=== PATIENT | female | born 1945 | race Caucasian/White ===

== ENCOUNTER → 2022-04-26 13:46 | Outpatient (BNVA) | payer OTHER, SELFPAY | PROVIDERS: PCP Registered Nurse; Visit Provider Nurse Practitioner Family | DX: G47.33 Obstructive sleep apnea (adult) (pediatric) (principal); R40.0 Somnolence; Z99.89 Dependence on other enabling machines and devices | CPT/HCPCS: 99202 ==

== ENCOUNTER → 2022-05-20 13:57 | Outpatient (REF) | payer OTHER, SELFPAY | LOC: HO.SL 13:57 | PROVIDERS: PCP Registered Nurse; Visit Provider Nurse Practitioner Family | DX: G47.33 Obstructive sleep apnea (adult) (pediatric) (principal); R40.0 Somnolence; Z99.89 Dependence on other enabling machines and devices | CPT/HCPCS: 95806 ==

== ENCOUNTER 2022-06-17 14:00 | Outpatient (RCR) | payer OTHER, SELFPAY | END 2022-07-03 17:49 | disposition home or self-care (01) | LOC: HO.PT 14:00 | PROVIDERS: PCP Registered Nurse; Visit Provider Registered Nurse | DX: M54.50 Low back pain, unspecified (principal) | CPT/HCPCS: 97110; 97140; 97162; 97530 ==

== ENCOUNTER → 2022-07-16 11:06 | Outpatient (BNVA) | payer OTHER, SELFPAY | PROVIDERS: PCP Registered Nurse; Visit Provider Nurse Practitioner Family | DX: G47.33 Obstructive sleep apnea (adult) (pediatric) (principal); Z99.89 Dependence on other enabling machines and devices | CPT/HCPCS: 99212 ==

== ENCOUNTER → 2022-08-26 15:01 | Outpatient (BNV) | payer OTHER, SELFPAY | PROVIDERS: Visit Provider Internal Medicine | DX: E53.8 Deficiency of other specified B group vitamins (principal); Z85.3 Personal history of malignant neoplasm of breast | CPT/HCPCS: 99204; 99213; 99214; G2211 ==

== ENCOUNTER 2022-08-26 15:59 | Outpatient (REF) | payer OTHER, SELFPAY ==
--- NOTE | ~2022-08-26 | XR_ITS ---
EXAMINATION: XR CERVICAL SPINE CLINICAL INFORMATION: Left shoulder pain. COMPARISON: None TECHNIQUE: 3 views of the cervical spine were obtained. FINDINGS: There are no prevertebral soft tissue or bony abnormalities demonstrated. No compression fractures or subluxations are identified. Alignment is maintained at the atlanto-axial articulation. The disc spaces are preserved. No endplate changes are seen. The prevertebral soft tissues are normal. The foramina are patent. XR/XR cervical spine 3V IMPRESSION: Unremarkable cervical spine examination.
--- NOTE | ~2022-08-26 | XR_ITS ---
EXAMINATION: XR HAND, RIGHT CLINICAL INFORMATION: Chronic finger pain COMPARISON: None TECHNIQUE: PA, lateral, and oblique views of the right hand. FINDINGS: No fracture or dislocation. Alignment is maintained. Joint spaces are maintained. Small soft tissue calcifications adjacent to the metacarpophalangeal joints. No osseous erosions. Small marginal osteophytes at the second and third digit proximal interphalangeal joints. XR/XR hand RT 2V IMPRESSION: Minimal arthritic changes. Small soft tissue calcifications adjacent to the metacarpophalangeal joints.
== END 2022-08-26 16:00 | disposition home or self-care (01) ==
LOC: HO.XRAY 15:59
PROVIDERS: PCP Registered Nurse; Visit Provider Registered Nurse
DX: M79.644 Pain in right finger(s) (principal); M25.512 Pain in left shoulder
CPT/HCPCS: 72040; 73120

== ENCOUNTER → 2022-08-28 10:43 | Outpatient (BNVA) | payer OTHER, SELFPAY | PROVIDERS: Visit Provider Orthopaedic Surgery | DX: M65.331 Trigger finger, right middle finger (principal); R20.0 Anesthesia of skin | CPT/HCPCS: 20550; 99202; J1100 ==

== ENCOUNTER 2022-10-04 13:28 | Outpatient (REF) | payer OTHER, SELFPAY ==
--- NOTE | ~2022-10-04 | MM_ITS ---
EXAMINATION: MM SCREENING DIGITAL BREAST TOMOSYNTHESIS, LEFT CLINICAL INFORMATION: Screening. Asymptomatic. Status post right mastectomy. Status post left breast biopsy. COMPARISON: Mammography: None. TECHNIQUE: Digital breast tomosynthesis is performed in both the craniocaudal and mediolateral oblique views along with computer-aided detection (CAD). Synthesized 2-D images are generated from the tomosynthesis. FINDINGS: There are scattered areas of fibroglandular density (ACR BI-RADS breast composition Category b). There is a region of architectural distortion about the upper outer aspect of the left breast in region of previous surgery. Vascular calcifications are present. No other suspicious findings are identified. MM/MM tomosynthesis screening LT IMPRESSION: Status post right mastectomy. Postsurgical change left breast. ASSESSMENT: BI-RADS 2: Benign RECOMMENDATION: Routine annual mammography screening. This patient's information was entered into a reminder system with a target due date for their next mammogram.
== END 2022-10-04 13:29 | disposition home or self-care (01) ==
LOC: HO.MAMMO 13:28
PROVIDERS: PCP Registered Nurse; Visit Provider Internal Medicine
DX: Z12.31 Encounter for screening mammogram for malignant neoplasm of breast (principal)
CPT/HCPCS: 77063; 77067

== ENCOUNTER → 2022-10-08 13:55 | Outpatient (BNVA) | payer OTHER, SELFPAY | PROVIDERS: PCP Registered Nurse; Visit Provider Nurse Practitioner Family | DX: M65.331 Trigger finger, right middle finger (principal); R20.0 Anesthesia of skin; G47.33 Obstructive sleep apnea (adult) (pediatric); G47.00 Insomnia, unspecified; Z99.89 Dependence on other enabling machines and devices | CPT/HCPCS: 99212 ==

== ENCOUNTER 2022-10-17 12:36 | Day surgery (SDC) | payer OTHER, SELFPAY ==
[2022-10-17 13:02] VITALS: BP 106/44; PULSE 84; RESP 16; TEMP 36.3; O2SAT 97; BMI 34.0
[2022-10-17 14:13] VITALS: BP 106/55; PULSE 75; RESP 18; O2SAT 97
--- NOTE | 2022-10-17 14:15 | MHC.SHP ---
Pre-Procedural Eval Section A Date of Service: 10/17/22 The patient is an INPATIENT: No Changes since office visit: No Cold of Flu in the past 2 weeks, No New Medical Problems, No Changes in Medication and No Patient answered all questions The History & Physical has been completed within 30 days and I have reviewed it.: Yes Section B Chief Complaint: Trigger finger, right middle finger,carpal tunnel Allergies: Allergies Allergy/AdvReac Type Severity Reaction Status Date / Time Penicillins Allergy Intermediate Rash Verified 10/17/22 13:03 Plan I have reviewed the history and physical and performed a pertinent physical examination on my patient. No changes have occurred unless specified. Time Spent With Patient Time: Total time managing care of this patient today ____ minutes.
--- NOTE | 2022-10-17 14:16 | W.PM.OPN ---
Operative Note Operative Note Date of Service: 10/17/22 Narrative: Preop diagnosis: 1. Right Carpal tunnel syndrome 2. Right middle finger trigger finger Postop diagnosis: same Procedure: 1. Right Carpal tunnel release 2. Right middle finger trigger release Surgeon: Carlita Stack MD Anesthesia: local block using 1% lidocaine with epinephrine Findings: Thickened transverse carpal ligament. EBL: Less than 5 mL Specimens: None Complications: None Disposition: Brought to recovery room in stable condition Plan: Follow-up for 10-14 days for wound check and suture removal Indications: The patient is 77 years old, with right carpal tunnel syndrome and a right middle finger trigger finger that have been unresponsive to nonoperative management. The risks and benefits of operative treatment including but not limited to risk of damage to blood vessels, nerves, tendons, infection, persistent pain, persistent symptoms, or possible need for additional surgery were discussed with the patient and the patient wishes to proceed with surgery. Procedure: Once consent was obtained a local block was performed using a combination of 1% lidocaine with epinephrine. The patient was then brought back to the operating suite and placed on the operative table in supine position. The right upper extremity was prepped and draped in a standard surgical fashion. Once assured that we had a good block, a 1.5 cm oblique incision was made centered over the A1 zenaida of the right middle finger . The incision was made through the skin to the subcutaneous tissues using a #15 blade. Careful dissection was made down to the level of the A1 zenaida using tenotomy scissors, with care being taken to protect the nearby neurovascular structures. A longitudinal incision was made in the A1 zenaida 1st using a #15 blade, then using tenotomy scissors under direct visualization. The A1 zenaida was noted to be thickened. Following our A1 zenaida release, we no longer saw any locking or catching of the digit with flexion and extension. Once assured that we had a good block, a 2.0 cm longitudinal incision was made centered over the carpal tunnel. The incision was made through the skin to the subcutaneous tissues using a #15 blade. Dissection was made down to the level of the transverse carpal ligament with care being taken to protect the palmar cutaneous nerve. Once the transverse carpal ligament was clearly visualized, a longitudinal incision was made in the transverse carpal ligament 1st using a #15 blade, then using tenotomy scissors under direct visualization. Care was taken to look for and protect the motor branch of the median nerve when seen in this area. Once satisfied with our carpal tunnel release and trigger release the wounds were copiously irrigated with normal saline and hemostasis was obtained with a brief period of local pressure. The skin edges were reapproximated with some 5.0 nylon suture material and a sterile dressing was applied. The patient appears to have tolerated the procedure well and with no complications. All digits were well vascularized at the conclusion of the case.
== END 2022-10-17 14:47 | disposition home or self-care (01) ==
PROVIDERS: PCP Registered Nurse; Visit Provider Orthopaedic Surgery
PROC: (CPT 26055; principal; 2022-10-17 12:00)
PROC: (CPT 64721; 2022-10-17 12:00)
DX: G56.01 Carpal tunnel syndrome, right upper limb (principal); M65.331 Trigger finger, right middle finger; R20.0 Anesthesia of skin; E11.9 Type 2 diabetes mellitus without complications; K21.9 Gastro-esophageal reflux disease without esophagitis; G47.30 Sleep apnea, unspecified; G62.9 Polyneuropathy, unspecified; E53.8 Deficiency of other specified B group vitamins; Z88.0 Allergy status to penicillin; Z85.3 Personal history of malignant neoplasm of breast; Z90.11 Acquired absence of right breast and nipple; Z86.16 Personal history of COVID-19
CPT/HCPCS: 64721; 26055; J0171

== ENCOUNTER → 2022-10-30 12:54 | Outpatient (BNVA) | payer OTHER, SELFPAY | PROVIDERS: PCP Registered Nurse; Visit Provider Orthopaedic Surgery ==

== ENCOUNTER 2022-11-01 09:14 | Outpatient (REF) | payer OTHER, SELFPAY ==
[2022-11-01 10:34] LABS: Alanine Aminotransferase 9 U/L (0-31); Anion Gap 12 (12-20); Aspartate Amino Transferase 12 U/L (5-31); Blood Urea Nitrogen 30 mg/dL (9-16); Calcium 9.7 mg/dL (8.4-10.2); Carbon Dioxide 30 mmol/L (22-29); Chloride 105 mmol/L (96-108); Cholesterol 128 mg/dL; Estimated Glomerular Filt Rate 44; Glucose Random 105 mg/dL (60-115); HDL Cholesterol 40 mg/dL; LDL Cholesterol Calculated 68 mg/dl; Potassium 4.5 mmol/L (3.3-5.1); Sodium 142 mmol/L (135-145); Triglycerides 101 mg/dL
[2022-11-01 10:39] LABS: B Type Natriuretic Peptide 97 pg/mL (<100)
== END 2022-11-01 09:15 | disposition home or self-care (01) ==
LOC: HO.LAB 09:14
PROVIDERS: Visit Provider Internal Medicine Cardiovascular Disease
DX: E78.5 Hyperlipidemia, unspecified (principal); I42.9 Cardiomyopathy, unspecified
CPT/HCPCS: 36415; 80048; 80061; 83880; 84450; 84460

== ENCOUNTER 2022-11-05 00:12 | Emergency (ER) | payer OTHER, SELFPAY ==
--- NOTE | 2022-11-05 | ECG_ITS ---
Test Reason : chest pain Blood Pressure : / mmHG Vent. Rate : 087 BPM Atrial Rate : 087 BPM P-R Int : 206 ms QRS Dur : 090 ms QT Int : 376 ms P-R-T Axes : 049 -10 053 degrees QTc Int : 452 ms Poor data quality, interpretation may be adversely affected Sinus rhythm with occasional Premature ventricular complexes Minimal voltage criteria for LVH, may be normal variant ( R in aVL ) Possible Anterior infarct , age undetermined Abnormal ECG No previous ECGs available Referred By: Generic ED Physician Electronically Signed By:Blade Ochoa
[2022-11-05 00:14] VITALS: BP 142/64; PULSE 92; RESP 16; TEMP 36.6; O2SAT 97; BMI 33.3
[2022-11-05 01:12] LABS: MANUAL DIFF FLAG NO
--- NOTE | 2022-11-05 01:12 | ED_ITS ---
HPI - Chest Pain General Chief Complaint: Chest Pain Stated Complaint: Chest Pain Time Seen by Provider: 11/05/22 01:06 Source: patient Mode of arrival: ambulatory Limitations: no limitations History of Present Illness HPI narrative: Patient's significant cardiac history status post stent placement 09/23 came to the ER with left-sided chest pain after hearing which happened just prior to arrival in the ER pain sharp in character lasting for few minutes Related Data Home Medications Medication Instructions Recorded Confirmed acetaminophen 500 mg tablet 500 mg PO Q6H PRN pain 04/26/22 08/26/22 carvedilol 25 mg tablet 25 mg PO BID 04/26/22 08/26/22 clopidogrel 75 mg tablet 75 mg PO DAILY 04/26/22 08/26/22 furosemide 20 mg tablet 20 mg PO DAILY 04/26/22 08/26/22 gabapentin 600 mg tablet 600 mg PO DAILY 04/26/22 08/26/22 glipizide 10 mg tablet 10 mg PO BID 04/26/22 08/26/22 isosorbide mononitrate 30 mg 30 mg PO DAILY 04/26/22 08/26/22 tablet,extended release 24 hr levothyroxine 88 mcg tablet 88 mcg PO DAILY 04/26/22 08/26/22 metformin 1,000 mg tablet 1,000 mg PO BID 04/26/22 08/26/22 simvastatin 20 mg tablet 20 mg PO BEDTIME 04/26/22 08/26/22 spironolactone 25 mg tablet 25 mg PO DAILY 04/26/22 08/26/22 sacubitril 24 mg-valsartan 26 mg 1 tab PO BID 10/08/22 tablet (Entresto) sacubitril 24 mg-valsartan 26 mg 1 tab PO BID 10/08/22 tablet (Entresto) Previous Rx's Medication Instructions Recorded melatonin 10 mg tablet 10 mg PO BEDTIME PRN sleep #30 tabs 10/08/22 oxycodone-acetaminophen 5 mg-325 1 tab PO Q6H PRN pain #5 tabs 10/17/22 mg tablet lorazepam 1 mg tablet (Ativan) 1 mg PO BEDTIME PRN sleep #10 tabs 11/05/22 Allergies Allergy/AdvReac Type Severity Reaction Status Date / Time Penicillins Allergy Intermediate Rash Verified 10/30/22 13:54 Review of Systems Review of Systems: Yes all other systems are reviewed and are negative [facility] Past Medical History Medical History Breast cancer, right breast COVID-19 GERD (gastroesophageal reflux disease) Neuropathy Sleep apnea Vitamin B12 deficiency Surgical History H/O right mastectomy History of appendectomy History of bilateral oophorectomies History of cholecystectomy Family History Family History Father No problems noted. Mother No problems noted. Social History Social History Household Members: Spouse and Family Housing: House Alcohol intake: never Patient Tobacco Use Status: Never used Tobacco Advance Directives: No Advance Directives Information Provided: Yes service: No Current occupational status: retired Physical Exam Vital Signs: Vital Signs: Last Vital Signs Temp 97.8 F 11/05/22 00:14 Pulse 92 11/05/22 00:14 Resp 16 11/05/22 00:14 BP 142/64 H 11/05/22 00:14 Pulse Ox 97 11/05/22 00:14 O2 Del Method Room Air 11/05/22 00:14 BMI result Body Mass Index 33.3 Appearance: Alert. Oriented X3. No acute distress. in tears with grief Eyes: PERRLA, No Nystagmus ENT: Pharynx normal. Oral Mucosa moist Neck: Normal inspection. Neck supple. CVS: Normal heart rate and rhythm. Pulses normal. Respiratory: No respiratory distress. Equal air entry bilateral, no wheezing/rales/rhonchi Abdomen: Soft and nontender. Bowel sounds are present, no mass palpable, no CVA tenderness Skin: Skin warm and dry. Normal skin color. Normal skin turgor. Extremities: No lower extremity edema. No calf tenderness Neuro: Oriented X 3. No motor deficit. No sensory deficit.No cerebellar signs , cranial nerves II-XII intact Medications Administered Discontinued Medications Generic Name Dose Route Start Last Admin Trade Name Freq PRN Reason Stop Dose Admin Lorazepam 1 mg 11/05/22 01:36 11/05/22 02:24 Lorazepam 1 Mg Tablet PO 04/04/23 01:37 1 mg ONCE ONE Administration Nitroglycerin 0.5 inch 11/05/22 01:36 11/05/22 02:24 Nitroglycerin 2 % Oint 1 Gm Packet TRANSDERMA 11/05/22 01:37 0.5 inch ONCE ONE Administration Medical Decision Making Medical Decision Making [facility] Narrative: Patient has coronary disease with grief reaction no significant EKG changes no delta increase in troponin is symptom seems to be from grief reaction discharge patient home with family Lab Data [facility] Lab Attestation statement: I reviewed the patient's lab results. 11/05/22 01:08 11/05/22 01:08 Labs: Lab Results 11/05/22 11/05/22 11/05/22 Range/Units 01:08 01:08 01:08 WBC 10.6 (4.8-10.8) X10*3/uL RBC 3.59 L (4.20-5.50) X10*6/uL Hgb 11.5 L (12.0-16.0) g/dl Hct 34.5 L (37.0-47.0) % MCV 96.1 (80.0-98.0) fL MCH 32.0 (27.0-33.0) pg MCHC 33.3 (31.0-35.0) g/dl RDW 12.3 (11.0-16.0) % Plt Count 244 (160-400) X10*3/uL MPV 10.2 (9.4-12.3) fL Immature Gran % (Auto) 0.3 (0.0-0.4) % Neut % (Auto) 78.5 H (45-73) % Lymph % (Auto) 13.5 L (20-40) % [place] % (Auto) 5.3 (2-11) % Eos % (Auto) 2.0 (0-4) % Baso % (Auto) 0.4 (0-2) % Lymph # (Auto) 1.4 (1.2-4.9) X10*3/uL [place] # (Auto) 0.6 (0.1-1.2) X10*3/uL Eos # (Auto) 0.2 (0.0-0.4) X10*3/uL Baso # (Auto) 0.0 (0.0-0.2) X10*3/uL Abs Immat Gran (auto) 0.03 (0.00-0.03) X10*3/uL Absolute Neuts (auto) 8.3 (2.0-8.3) x10*3/uL Absolute Nucleated RBC 0.000 (0.0-0.012) X10*3/uL Nucleated RBC % (auto) 0.0 (0.0-0.2) /100WBC Sodium 139 (135-145) mmol/L Potassium 4.4 (3.3-5.1) mmol/L Chloride 102 (96-108) mmol/L Carbon Dioxide 26 (22-29) mmol/L Anion Gap 15 (12-20) BUN 23 H (9-16) mg/dL Creatinine 1.35 (0.5-1.4) mg/dL Estim Creat Clear Calc 38.2 Estimated GFR 38 Random Glucose 167 H (60-115) mg/dL Calcium 9.8 (8.4-10.2) mg/dL Total Bilirubin 0.5 (0.0-1.0) mg/dL AST 12 (5-31) U/L ALT 7 (0-31) U/L Alkaline Phosphatase 67 (39-117) U/L Troponin I High Sens 8.5 (<3.5-17.0) ng/L Total Protein 7.0 (6.5-8.0) g/dL Albumin 4.2 (3.5-5.0) g/dL 11/05/22 Range/Units 02:42 WBC (4.8-10.8) X10*3/uL RBC (4.20-5.50) X10*6/uL Hgb (12.0-16.0) g/dl Hct (37.0-47.0) % MCV (80.0-98.0) fL MCH (27.0-33.0) pg MCHC (31.0-35.0) g/dl RDW (11.0-16.0) % Plt Count (160-400) X10*3/uL MPV (9.4-12.3) fL Immature Gran % (Auto) (0.0-0.4) % Neut % (Auto) (45-73) % Lymph % (Auto) (20-40) % [place] % (Auto) (2-11) % Eos % (Auto) (0-4) % Baso % (Auto) (0-2) % Lymph # (Auto) (1.2-4.9) X10*3/uL [place] # (Auto) (0.1-1.2) X10*3/uL Eos # (Auto) (0.0-0.4) X10*3/uL Baso # (Auto) (0.0-0.2) X10*3/uL Abs Immat Gran (auto) (0.00-0.03) X10*3/uL Absolute Neuts (auto) (2.0-8.3) x10*3/uL Absolute Nucleated RBC (0.0-0.012) X10*3/uL Nucleated RBC % (auto) (0.0-0.2) /100WBC Sodium (135-145) mmol/L Potassium (3.3-5.1) mmol/L Chloride (96-108) mmol/L Carbon Dioxide (22-29) mmol/L Anion Gap (12-20) BUN (9-16) mg/dL Creatinine (0.5-1.4) mg/dL Estim Creat Clear Calc Estimated GFR Random Glucose (60-115) mg/dL Calcium (8.4-10.2) mg/dL Total Bilirubin (0.0-1.0) mg/dL AST (5-31) U/L ALT (0-31) U/L Alkaline Phosphatase (39-117) U/L Troponin I High Sens 10.1 (<3.5-17.0) ng/L Total Protein (6.5-8.0) g/dL Albumin (3.5-5.0) g/dL Discharge Plan Discharge Clinical Impression: Grief reaction, Chest pain Patient Disposition: Home, Self-Care Instructions: Chest Pain (ED), Grief and Loss (ED) Additional Instructions: Rest at home Ativan to relax and sleep Follow with PCP if the chest pain continues Prescriptions: New lorazepam [Ativan] 1 mg tablet 1 mg PO BEDTIME PRN (Reason: sleep) Qty: 10 0RF No Action oxycodone-acetaminophen 5-325 mg tablet 1 tab PO Q6H PRN (Reason: pain) Qty: 5 0RF Rx Instructions: Partial Fill upon patient request. simvastatin 20 mg tablet 20 mg PO BEDTIME clopidogrel 75 mg tablet 75 mg PO DAILY spironolactone 25 mg tablet 25 mg PO DAILY isosorbide mononitrate 30 mg tablet extended release 24 hr 30 mg PO DAILY glipizide 10 mg tablet 10 mg PO BID levothyroxine 88 mcg tablet 88 mcg PO DAILY metformin 1,000 mg tablet 1,000 mg PO BID furosemide 20 mg tablet 20 mg PO DAILY gabapentin 600 mg tablet 600 mg PO DAILY acetaminophen 500 mg tablet 500 mg PO Q6H PRN (Reason: pain) carvedilol 25 mg tablet 25 mg PO BID Entresto 24-26 mg tablet 1 tab PO BID melatonin 10 mg tablet 10 mg PO BEDTIME PRN (Reason: sleep) Qty: 30 6RF Entresto 24-26 mg tablet 1 tab PO BID
[2022-11-05 01:13] LABS: Basophils Percent Auto 0.4 % (0-2); Eosinophils Absolute Auto 0.2 X10*3/uL (0.0-0.4); Hematocrit 34.5 % (37.0-47.0); Hemoglobin 11.5 g/dl (12.0-16.0); Imm Gran Abs Auto 0.03 X10*3/uL (0.00-0.03); Imm Gran Pct Auto 0.3 % (0.0-0.4); Lymphocytes Absolute Auto 1.4 X10*3/uL (1.2-4.9); Lymphocytes Percent Auto 13.5 % (20-40); Mean Corpuscular HGB Conc 33.3 g/dl (31.0-35.0); Mean Corpuscular Volume 96.1 fL (80.0-98.0); Mean Platelet Volume 10.2 fL (9.4-12.3); Monocytes Absolute Auto 0.6 X10*3/uL (0.1-1.2); Monocytes Percent Auto 5.3 % (2-11); Neutrophils Absolute Auto 8.3 x10*3/uL (2.0-8.3); Neutrophils Percent Auto 78.5 % (45-73); Platelet Count 244 X10*3/uL (160-400); Red Blood Count 3.59 X10*6/uL (4.20-5.50); Red Cell Distribution Width 12.3 % (11.0-16.0); White Blood Count 10.6 X10*3/uL (4.8-10.8)
[2022-11-05 01:26] LABS: Alanine Aminotransferase 7 U/L (0-31); Albumin Level 4.2 g/dL (3.5-5.0); Alkaline Phosphatase 67 U/L (39-117); Anion Gap 15 (12-20); Aspartate Amino Transferase 12 U/L (5-31); Bilirubin Total 0.5 mg/dL (0.0-1.0); Blood Urea Nitrogen 23 mg/dL (9-16); Calcium 9.8 mg/dL (8.4-10.2); Carbon Dioxide 26 mmol/L (22-29); Chloride 102 mmol/L (96-108); Creatinine Clr Calc Pharmacy 38.2; Estimated Glomerular Filt Rate 38; Glucose Random 167 mg/dL (60-115); Potassium 4.4 mmol/L (3.3-5.1); Sodium 139 mmol/L (135-145)
[2022-11-05 01:33] LABS: Troponin-I High Sensitivity 8.5 ng/L (<3.5-17.0)
[2022-11-05] MEDS: LORazepam 1 MG TABLET PO (02:24)
[2022-11-05] MEDS: Nitroglycerin 2 % Oint 1 GM Packet 0.5 INCH TRANSDERMA (02:24)
[2022-11-05 03:08] LABS: Troponin-I High Sensitivity 10.1 ng/L (<3.5-17.0)
--- NOTE | 2022-11-05 03:23 | PC.NURSE ---
Thomas ssumed nursing care of cordell at this time, and at this time she is D/C'd. The pt is resting in bed with family at the bedside. she denies pain at this time. She is awake, alert, calm and cooperative. pain free, respirations non-labored. pts dfamily verbalized an understanding of all DC orders andpts family assisted the pt with changing into her clothes and exiting the department via wheelchair to private vehicle.
== END 2022-11-05 03:36 | disposition home or self-care (01) ==
PROVIDERS: Emergency Provider Internal Medicine
DX: F43.20 Adjustment disorder, unspecified (principal); R07.9 Chest pain, unspecified; Z72.89 Other problems related to lifestyle; Z63.4 Disappearance and death of family member; Z79.02 Long term (current) use of antithrombotics/antiplatelets
CPT/HCPCS: 36415; 80053; 84484; 85025; 93005; 99283

== ENCOUNTER 2022-12-18 09:57 | Outpatient (REF) | payer OTHER, SELFPAY ==
[2022-12-18 10:21] LABS: MANUAL DIFF FLAG NO
[2022-12-18 10:42] LABS: Basophils Absolute Auto 0.1 X10*3/uL (0.0-0.2); Basophils Percent Auto 0.6 % (0-2); Eosinophils Absolute Auto 0.2 X10*3/uL (0.0-0.4); Eosinophils Percent Auto 2.1 % (0-4); Hematocrit 35.4 % (37.0-47.0); Hemoglobin 11.8 g/dl (12.0-16.0); Imm Gran Abs Auto 0.02 X10*3/uL (0.00-0.03); Imm Gran Pct Auto 0.2 % (0.0-0.4); Lymphocytes Absolute Auto 1.6 X10*3/uL (1.2-4.9); Lymphocytes Percent Auto 17.1 % (20-40); Mean Corpuscular HGB Conc 33.3 g/dl (31.0-35.0); Mean Corpuscular Hemoglobin 32.5 pg (27.0-33.0); Mean Corpuscular Volume 97.5 fL (80.0-98.0); Mean Platelet Volume 10.6 fL (9.4-12.3); Monocytes Absolute Auto 0.6 X10*3/uL (0.1-1.2); Monocytes Percent Auto 6.4 % (2-11); Neutrophils Absolute Auto 6.7 x10*3/uL (2.0-8.3); Neutrophils Percent Auto 73.6 % (45-73); Platelet Count 221 X10*3/uL (160-400); Red Blood Count 3.63 X10*6/uL (4.20-5.50); Red Cell Distribution Width 12.4 % (11.0-16.0)
[2022-12-18 11:03] LABS: Partial Thromboplastin Time 24.7 SEC (26.0-36.4)
[2022-12-18 11:13] LABS: B Type Natriuretic Peptide 95 pg/mL (<100)
== END 2022-12-18 09:58 | disposition home or self-care (01) ==
LOC: HO.LAB 09:57
PROVIDERS: Visit Provider Internal Medicine Cardiovascular Disease
DX: Z01.812 Encounter for preprocedural laboratory examination (principal); I42.9 Cardiomyopathy, unspecified
CPT/HCPCS: 36415; 83880; 85025; 85730

== ENCOUNTER 2023-01-08 07:44 | Outpatient (REF) | payer OTHER, SELFPAY ==
--- NOTE | 2023-01-08 08:00 | PFT_ITS ---
FLOWS: 1. FEV1 87% of predicted at 1.70 L. 2. FVC 77% of predicted at 1.98 L. 3. FEV1/FVC ratio of 0.86. 4. No bronchodilator response. LUNG VOLUMES: 1. Total lung capacity 79% of predicated at 3.91 L. 2. Residual volume 75% of predicted at 1.75 L. 3. Slow vital capacity 83% of predicted at 2.15 L. 4. Expiratory reserve volume 23% of predicted at 0.12 L. 5. Diffusion capacity is normal. IMPRESSION: Mild restrictive ventilatory defect with no bronchodilator response. Decreased expiratory reserve volume suggests extrathoracic restriction, likely secondary to abdominal obesity. Neymar Templeton MD AP/MODL / [id number]
== END 2023-01-08 07:45 | disposition home or self-care (01) ==
LOC: HO.RESP 07:44
PROVIDERS: PCP Registered Nurse; Visit Provider Registered Nurse
DX: R06.02 Shortness of breath (principal); Z87.898 Personal history of other specified conditions
CPT/HCPCS: 94060; 94727; 94729

== ENCOUNTER 2023-01-23 17:02 | Emergency (ER) | payer OTHER, SELFPAY ==
--- NOTE | ~2023-01-23 | XR_ITS ---
EXAMINATION: XR CHEST CLINICAL INFORMATION: Chest present. Cough. Shortness of breath. COMPARISON: None available. TECHNIQUE: 2 views of the chest were obtained. FINDINGS: Mild prominent bronchovascular markings are noted bilaterally, may represent subtle interstitial edema/CHF in the appropriate clinical setting. Cardiac mediastinal silhouette is within normal limits. No evidence of any airspace opacity. No evidence of any pleural effusion or pneumothorax. The visualized upper abdomen is unremarkable. Mild multilevel degenerative spondylosis. XR/XR chest 2V IMPRESSION: Mild bilateral diffuse prominent interstitial lung markings, most consistent with interstitial edema mild CHF in the appropriate clinical setting. Differential include interstitial/viral pneumonia. Follow-up radiograph to document resolution is recommended.
--- NOTE | 2023-01-23 17:18 | ECG_ITS ---
Test Reason : DIZZINESS Blood Pressure : / mmHG Vent. Rate : 073 BPM Atrial Rate : 073 BPM P-R Int : 240 ms QRS Dur : 094 ms QT Int : 392 ms P-R-T Axes : 047 -10 051 degrees QTc Int : 431 ms Sinus rhythm with 1st degree A-V block Minimal voltage criteria for LVH, may be normal variant ( R in aVL ) Nonspecific ST and T wave abnormality Abnormal ECG When compared with ECG of 05-NOV-2022 00:20, Premature ventricular complexes are no longer Present UT interval has increased Nonspecific T wave abnormality now evident in Inferior leads Nonspecific T wave abnormality, worse in Anterolateral leads Referred By: Generic ED Physician Electronically Signed By:SUGEY LIM
[2023-01-23 17:32] VITALS: BP 113/52; PULSE 76; RESP 18; TEMP 36.7; O2SAT 95; BMI 35.8
--- NOTE | 2023-01-23 17:32 | ED.GENADULT ---
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 Usually exertion trigger patient's symptoms, patient has been using her asthma medication home with the inhaler with minimal response. No fever, no chills. Related Data Home Medications Medication Instructions Recorded Confirmed acetaminophen 500 mg tablet 500 mg PO Q6H PRN pain 04/26/22 08/26/22 carvedilol 25 mg tablet 25 mg PO BID 04/26/22 08/26/22 clopidogrel 75 mg tablet 75 mg PO DAILY 04/26/22 08/26/22 furosemide 20 mg tablet 20 mg PO DAILY 04/26/22 08/26/22 gabapentin 600 mg tablet 600 mg PO DAILY 04/26/22 08/26/22 glipizide 10 mg tablet 10 mg PO BID 04/26/22 08/26/22 isosorbide mononitrate 30 mg 30 mg PO DAILY 04/26/22 08/26/22 tablet,extended release 24 hr levothyroxine 88 mcg tablet 88 mcg PO DAILY 04/26/22 08/26/22 metformin 1,000 mg tablet 1,000 mg PO BID 04/26/22 08/26/22 simvastatin 20 mg tablet 20 mg PO BEDTIME 04/26/22 08/26/22 spironolactone 25 mg tablet 25 mg PO DAILY 04/26/22 08/26/22 sacubitril 24 mg-valsartan 26 mg 1 tab PO BID 10/08/22 tablet (Entresto) sacubitril 24 mg-valsartan 26 mg 1 tab PO BID 10/08/22 tablet (Entresto) Previous Rx's Medication Instructions Recorded melatonin 10 mg tablet 10 mg PO BEDTIME PRN sleep #30 tabs 10/08/22 oxycodone-acetaminophen 5 mg-325 1 tab PO Q6H PRN pain #5 tabs 10/17/22 mg tablet lorazepam 1 mg tablet (Ativan) 1 mg PO BEDTIME PRN sleep #10 tabs 11/05/22 albuterol sulfate 2.5 mg/3 mL 2.5 mg (3 mL) inhalation Q4-6H PRN 01/23/23 (0.083 %) solution for nebulization shortness of breath or wheezing #90 mL doxycycline hyclate 100 mg tablet 100 mg PO BID #14 tabs 01/23/23 prednisone 20 mg tablet 20 mg PO BID #10 tabs 01/23/23 Allergies Allergy/AdvReac Type Severity Reaction Status Date / Time Penicillins Allergy Intermediate Rash Verified 10/30/22 13:54 Review of Systems Review of Systems: All other systems are reviewed and are negative Constitutional: Reports as per HPI and Reports no additional constitutional complaints Eyes: Reports as per HPI and Reports no additional eye complaints Reports system reviewed and no additional complaints, except as documented Cardiovascular: Reports as per HPI and Reports no additional cardiovascular complaints Respiratory: Reports as per HPI and Reports no additional respiratory complaints Gastrointestinal: Reports as per HPI and Reports no additional gastrointestinal complaints Genitourinary: Reports no additional female genitourinary complaints Musculoskeletal: Reports no additional musculoskeletal complaints Skin/Breast: Reports system reviewed and no additional complaints, except as docu Psychiatric: Reports no additional psychiatric complaints Endocrine: Reports no additional endocrine complaints Hematologic/Lymphatic: Reports no additional hematologic/lymphatic complaints Allergic/Immunologic: Reports no additional allergic/immunologic complaints Reports system reviewed and no additional complaints, except as documented and Reports Abnormal speech present [facility] Past Medical History Medical History Breast cancer, right breast COVID-19 GERD (gastroesophageal reflux disease) Neuropathy Sleep apnea Vitamin B12 deficiency Surgical History H/O right mastectomy History of appendectomy History of bilateral oophorectomies History of cholecystectomy Family History Family History Father No problems noted. Mother No problems noted. Social History Social History Household Members: Spouse and Family Housing: House Alcohol intake: current Alcohol intake frequency: holidays/special occasions only Patient Tobacco Use Status: Never used Tobacco Smoked in Last 30 Days: No Use of substances other than those prescribed or required for medical reasons: No Advance Directives: No Advance Directives Information Provided: No service: No Current occupational status: retired Physical Exam ED Vital Signs: Vital Signs - 24 hr 01/23/23 17:32 01/23/23 19:36 01/23/23 20:10 Temperature 98.1 F 97.8 F Pulse Rate 76 78 68 Respiratory Rate 18 18 18 Blood Pressure 113/52 L 135/55 L Pulse Oximetry 95 96 Oxygen Delivery Method Room Air Room Air 01/23/23 20:37 01/23/23 20:47 01/23/23 22:05 Temperature 97.8 F 97.6 F Pulse Rate 70 77 Respiratory Rate 14 18 18 Blood Pressure 139/65 144/59 H Pulse Oximetry 98 98 Oxygen Delivery Method Room Air Room Air BMI result Body Mass Index 35.8 Vital signs have been reviewed as appeared to be correct. Blood pressure normal. Heart rate normal. Respiration rate normal. Temperature normal. Oxygen saturation normal. Appearance: Alert. Oriented X3. No acute distress. Head: Normal external exam. Normocephalic. Atraumatic. No Spaulding signs noted. No raccoon eyes noted Eyes: PERRLA. EOMI. Conjunctiva and sclera normal. Eyelids normal. ENT: TM's Normal. Pharynx normal. Uvula midline. Moist mucous membranes. No trismus noted. No drooling noted. No muffled voice noted. Neck: Normal inspection. Neck supple. FROM. No adenopathy. Thyroid Normal. No meningeal signs. No neck mass noted. CVS: Normal heart rate and rhythm. Heart sound normal. No murmurs noted. Pulses normal throughout. Respiratory: No respiratory distress. Painless inspiration. Breath sounds normal. Diffuse minimal expiratory wheezing with prolonged expiration.. Chest nontender. No accessory muscle usage noted or decreased air movement noted. Abdomen: Soft and nontender. Bowel sounds normal in all 4 quadrants. No distention noted. No organomegaly noted. No visible injury noted. Back: No CVA tenderness. Full range of motion noted. Skin: Skin warm and dry. Normal skin color. Normal skin turgor. No rashes/lesions/lacerations noted. Extremities: No lower extremity edema. Extremities exhibit normal range of motion. Extremities nontender. Neuro: Oriented X 3. Cranial nerve exam: II-XII are grossly intact No motor deficit. No sensory deficit. Reflexes normal. Course Course Course Narrative: This is an RME: Additional HPI, ROS, PE not included below will be deferred to primary provider. This is a [id number]-female, hx of asthma, diabetes, aortic sternosis, and multiple cardiac catheterizations on Plavix, with a complaint of productive cough with clear/yellow sputum, midsternal chest pressure and dizziness x 3-4 days. No fevers or chills. VSS. Plan: Labs, EKG, CXR ordered Reevaluation(s) Reevaluation #1: A 77-year-old female history of asthma presented with difficulty breathing, physical exam/chest x-ray is consistent with asthma/bronchitis. Patient felt better after bronchodilator treatment in the emergency department, will discharge home with bronchodilator/prednisone/doxycycline. Will give 1 dose of Lasix. Time: 22:51 Medications Administered Discontinued Medications Generic Name Dose Route Start Last Admin Trade Name Freq PRN Reason Stop Dose Admin Albuterol Sulfate 2.5 mg 01/23/23 19:46 01/23/23 20:05 Albuterol Sulfate (0.083%) 2.5 Mg/3 Ml Vial.Neb INHALE 01/23/23 19:47 2.5 mg ONCE ONE Administration Albuterol/Ipratropium 3 ml 01/23/23 19:46 01/23/23 20:05 Albuterol/Iprat 2.5/0.5mg 3 Ml Ampul.Neb INHALE 01/23/23 19:47 3 ml ONCE ONE Administration Prednisone 40 mg 01/23/23 19:47 01/23/23 20:05 Prednisone 20 Mg Tablet PO 01/23/23 19:48 40 mg ONCE ONE Administration Medical Decision Making Differential Diagnosis Differential Diagnoses: The differential diagnosis associated with the presentation includes (CHF, asthma exacerbation, bronchitis, pneumonia, electrolyte abnormalities, severe anemia.) Admission/Observation Consideration of admission/observation: Escalation of care including admission/observation considered Lab Data MDM Lab Attestation statement: I reviewed the patient's lab results. 01/23/23 17:48 01/23/23 17:48 Labs: Lab Results 01/23/23 01/23/23 01/23/23 Range/Units 17:48 17:48 17:48 WBC 7.5 (4.8-10.8) X10*3/uL RBC 3.42 L (4.20-5.50) X10*6/uL Hgb 11.2 L (12.0-16.0) g/dl Hct 33.6 L (37.0-47.0) % MCV 98.2 H (80.0-98.0) fL MCH 32.7 (27.0-33.0) pg MCHC 33.3 (31.0-35.0) g/dl RDW 12.5 (11.0-16.0) % Plt Count 238 (160-400) X10*3/uL MPV 10.3 (9.4-12.3) fL Immature Gran % (Auto) 0.4 (0.0-0.4) % Neut % (Auto) 56.7 (45-73) % Lymph % (Auto) 26.0 (20-40) % Stevens % (Auto) 9.9 (2-11) % Eos % (Auto) 6.3 H (0-4) % Baso % (Auto) 0.7 (0-2) % Lymph # (Auto) 1.9 (1.2-4.9) X10*3/uL Stevens # (Auto) 0.7 (0.1-1.2) X10*3/uL Eos # (Auto) 0.5 H (0.0-0.4) X10*3/uL Baso # (Auto) 0.1 (0.0-0.2) X10*3/uL Abs Immat Gran (auto) 0.03 (0.00-0.03) X10*3/uL Absolute Neuts (auto) 4.2 (2.0-8.3) x10*3/uL Absolute Nucleated RBC 0.000 (0.0-0.012) X10*3/uL Nucleated RBC % (auto) 0.0 (0.0-0.2) /100WBC PT 10.0 (10.0-13.1) SEC INR 0.9 (0.9-1.1) APTT 24.9 L (26.0-36.4) SEC Sodium 138 (135-145) mmol/L Potassium 4.2 (3.3-5.1) mmol/L Chloride 105 (96-108) mmol/L Carbon Dioxide 23 (22-29) mmol/L Anion Gap 14 (12-20) BUN 22 H (9-16) mg/dL Creatinine 0.99 (0.5-1.4) mg/dL Estim Creat Clear Calc 50.3 Estimated GFR 54 Random Glucose 119 H (60-115) mg/dL Calcium 10.2 (8.4-10.2) mg/dL Total Bilirubin 0.6 (0.0-1.0) mg/dL Direct Bilirubin 0.2 (0.0-0.5) mg/dL AST 12 (5-31) U/L ALT 8 (0-31) U/L Alkaline Phosphatase 72 (39-117) U/L Troponin I High Sens (<3.5-17.0) ng/L B-Natriuretic Peptide (<100) pg/mL Total Protein 7.2 (6.5-8.0) g/dL Albumin 4.1 (3.5-5.0) g/dL 01/23/23 01/23/23 Range/Units 17:48 17:48 WBC (4.8-10.8) X10*3/uL RBC (4.20-5.50) X10*6/uL Hgb (12.0-16.0) g/dl Hct (37.0-47.0) % MCV (80.0-98.0) fL MCH (27.0-33.0) pg MCHC (31.0-35.0) g/dl RDW (11.0-16.0) % Plt Count (160-400) X10*3/uL MPV (9.4-12.3) fL Immature Gran % (Auto) (0.0-0.4) % Neut % (Auto) (45-73) % Lymph % (Auto) (20-40) % Stevens % (Auto) (2-11) % Eos % (Auto) (0-4) % Baso % (Auto) (0-2) % Lymph # (Auto) (1.2-4.9) X10*3/uL Stevens # (Auto) (0.1-1.2) X10*3/uL Eos # (Auto) (0.0-0.4) X10*3/uL Baso # (Auto) (0.0-0.2) X10*3/uL Abs Immat Gran (auto) (0.00-0.03) X10*3/uL Absolute Neuts (auto) (2.0-8.3) x10*3/uL Absolute Nucleated RBC (0.0-0.012) X10*3/uL Nucleated RBC % (auto) (0.0-0.2) /100WBC PT (10.0-13.1) SEC INR (0.9-1.1) APTT (26.0-36.4) SEC Sodium (135-145) mmol/L Potassium (3.3-5.1) mmol/L Chloride (96-108) mmol/L Carbon Dioxide (22-29) mmol/L Anion Gap (12-20) BUN (9-16) mg/dL Creatinine (0.5-1.4) mg/dL Estim Creat Clear Calc Estimated GFR Random Glucose (60-115) mg/dL Calcium (8.4-10.2) mg/dL Total Bilirubin (0.0-1.0) mg/dL Direct Bilirubin (0.0-0.5) mg/dL AST (5-31) U/L ALT (0-31) U/L Alkaline Phosphatase (39-117) U/L Troponin I High Sens < 2.7 D (<3.5-17.0) ng/L B-Natriuretic Peptide 119 H (<100) pg/mL Total Protein (6.5-8.0) g/dL Albumin (3.5-5.0) g/dL Independent Interpretation I performed an independent interpretation of an: Plain X-Ray (Mild bilateral diffuse prominent interstitial lung markings, most consistent with interstitial edema mild CHF in the appropriate clinical setting. Differential include interstitial/viral pneumonia. Follow-up radiograph to document resolution is recommended.) Radiology Impression Discussion of test interpretation with radiology: I have reviewed the radiologist's reading. Discharge Plan Discharge Clinical Impression: Bronchitis Patient Disposition: Home, Self-Care Instructions: Acute Bronchitis (ED) Prescriptions: New prednisone 20 mg tablet 20 mg PO BID Qty: 10 0RF doxycycline hyclate 100 mg tablet 100 mg PO BID Qty: 14 0RF albuterol sulfate 2.5 mg /3 mL (0.083 %) solution for nebulization 2.5 mg inhalation Q4-6H PRN (Reason: shortness of breath or wheezing) Qty: 90 0RF No Action oxycodone-acetaminophen 5-325 mg tablet 1 tab PO Q6H PRN (Reason: pain) Qty: 5 0RF Rx Instructions: Partial Fill upon patient request. lorazepam [Ativan] 1 mg tablet 1 mg PO BEDTIME PRN (Reason: sleep) Qty: 10 0RF simvastatin 20 mg tablet 20 mg PO BEDTIME clopidogrel 75 mg tablet 75 mg PO DAILY spironolactone 25 mg tablet 25 mg PO DAILY isosorbide mononitrate 30 mg tablet extended release 24 hr 30 mg PO DAILY glipizide 10 mg tablet 10 mg PO BID levothyroxine 88 mcg tablet 88 mcg PO DAILY metformin 1,000 mg tablet 1,000 mg PO BID furosemide 20 mg tablet 20 mg PO DAILY gabapentin 600 mg tablet 600 mg PO DAILY acetaminophen 500 mg tablet 500 mg PO Q6H PRN (Reason: pain) carvedilol 25 mg tablet 25 mg PO BID Entresto 24-26 mg tablet 1 tab PO BID melatonin 10 mg tablet 10 mg PO BEDTIME PRN (Reason: sleep) Qty: 30 6RF Entresto 24-26 mg tablet 1 tab PO BID Referrals: [facility] [Primary Care Provider] -
[2023-01-23 18:03] LABS: MANUAL DIFF FLAG NO
[2023-01-23 18:04] LABS: Basophils Absolute Auto 0.1 X10*3/uL (0.0-0.2); Basophils Percent Auto 0.7 % (0-2); Eosinophils Absolute Auto 0.5 X10*3/uL (0.0-0.4); Eosinophils Percent Auto 6.3 % (0-4); Hematocrit 33.6 % (37.0-47.0); Hemoglobin 11.2 g/dl (12.0-16.0); Imm Gran Abs Auto 0.03 X10*3/uL (0.00-0.03); Imm Gran Pct Auto 0.4 % (0.0-0.4); Lymphocytes Absolute Auto 1.9 X10*3/uL (1.2-4.9); Mean Corpuscular HGB Conc 33.3 g/dl (31.0-35.0); Mean Corpuscular Hemoglobin 32.7 pg (27.0-33.0); Mean Corpuscular Volume 98.2 fL (80.0-98.0); Mean Platelet Volume 10.3 fL (9.4-12.3); Monocytes Absolute Auto 0.7 X10*3/uL (0.1-1.2); Monocytes Percent Auto 9.9 % (2-11); Neutrophils Absolute Auto 4.2 x10*3/uL (2.0-8.3); Neutrophils Percent Auto 56.7 % (45-73); Platelet Count 238 X10*3/uL (160-400); Red Blood Count 3.42 X10*6/uL (4.20-5.50); Red Cell Distribution Width 12.5 % (11.0-16.0); White Blood Count 7.5 X10*3/uL (4.8-10.8)
[2023-01-23 18:09] LABS: INTERNATIONAL NORM RATIO 0.9 (0.9-1.1)
[2023-01-23 18:12] LABS: Partial Thromboplastin Time 24.9 SEC (26.0-36.4)
[2023-01-23 18:37] LABS: Alanine Aminotransferase 8 U/L (0-31); Albumin Level 4.1 g/dL (3.5-5.0); Alkaline Phosphatase 72 U/L (39-117); Anion Gap 14 (12-20); Aspartate Amino Transferase 12 U/L (5-31); Bilirubin Direct 0.2 mg/dL (0.0-0.5); Bilirubin Total 0.6 mg/dL (0.0-1.0); Blood Urea Nitrogen 22 mg/dL (9-16); Calcium 10.2 mg/dL (8.4-10.2); Carbon Dioxide 23 mmol/L (22-29); Chloride 105 mmol/L (96-108); Creatinine Clr Calc Pharmacy 50.3; Estimated Glomerular Filt Rate 54; Glucose Random 119 mg/dL (60-115); Potassium 4.2 mmol/L (3.3-5.1); Sodium 138 mmol/L (135-145); Total Protein 7.2 g/dL (6.5-8.0); Troponin-I High Sensitivity < 2.7 ng/L (<3.5-17.0)
[2023-01-23 19:36] VITALS: BP 135/55; PULSE 78; RESP 18; TEMP 36.6; O2SAT 96
[2023-01-23] MEDS: predniSONE 20 MG TABLET 40 MG PO (20:05)
[2023-01-23] MEDS: Albuterol/Iprat 2.5/0.5MG 3 ML AMPUL.NEB INHALE (20:05)
[2023-01-23] MEDS: Albuterol Sulfate (0.083%) 2.5 MG/3 ML VIAL.NEB INHALE (20:05)
[2023-01-23 20:10] VITALS: PULSE 68; RESP 18; O2SAT 97
[2023-01-23 20:37] VITALS: BP 139/65; PULSE 70; RESP 14; TEMP 36.6; O2SAT 98
[2023-01-23 20:47] VITALS: RESP 18
[2023-01-23 21:37] LABS: B Type Natriuretic Peptide 119 pg/mL (<100)
[2023-01-23 22:05] VITALS: BP 144/59; PULSE 77; RESP 18; TEMP 36.4; O2SAT 98
== END 2023-01-23 23:10 | disposition home or self-care (01) ==
PROVIDERS: Physician Assistant Medical; Emergency Provider Emergency Medicine
DX: J40 Bronchitis, not specified as acute or chronic (principal); E11.9 Type 2 diabetes mellitus without complications; R06.02 Shortness of breath; Z79.899 Other long term (current) drug therapy; Z79.84 Long term (current) use of oral hypoglycemic drugs; Z79.02 Long term (current) use of antithrombotics/antiplatelets
CPT/HCPCS: 36415; 71046; 80048; 80076; 83880; 84484; 85025; 85610; 85730; 93005; 94640; 99284; 99285

== ENCOUNTER 2023-01-30 14:58 | Outpatient (REF) | payer OTHER, SELFPAY ==
--- NOTE | 2023-01-30 15:01 | EMG_ITS ---
Please see scanned EMG / Nerve Conduction Report. MTDD
== END 2023-01-30 14:59 | disposition home or self-care (01) ==
LOC: HO.NEURO 14:58
PROVIDERS: Visit Provider Orthopaedic Surgery
DX: R20.0 Anesthesia of skin (principal); R20.2 Paresthesia of skin
CPT/HCPCS: 95885; 95913

== ENCOUNTER 2023-02-02 01:29 | Emergency (ER) | payer OTHER, SELFPAY ==
[2023-02-02 01:36] VITALS: BP 119/71; PULSE 82; RESP 19; TEMP 36.2; O2SAT 96; BMI 35.2
[2023-02-02 02:16] VITALS: BP 101/38; PULSE 82; RESP 20; O2SAT 98
[2023-02-02 02:44] LABS: MANUAL DIFF FLAG NO
[2023-02-02 02:45] LABS: Basophils Percent Auto 0.3 % (0-2); Eosinophils Absolute Auto 0.2 X10*3/uL (0.0-0.4); Eosinophils Percent Auto 2.1 % (0-4); Hematocrit 37.5 % (37.0-47.0); Hemoglobin 12.9 g/dl (12.0-16.0); Imm Gran Abs Auto 0.09 X10*3/uL (0.00-0.03); Lymphocytes Percent Auto 32.1 % (20-40); Mean Corpuscular HGB Conc 34.4 g/dl (31.0-35.0); Mean Corpuscular Hemoglobin 33.4 pg (27.0-33.0); Mean Corpuscular Volume 97.2 fL (80.0-98.0); Mean Platelet Volume 10.2 fL (9.4-12.3); Monocytes Absolute Auto 0.6 X10*3/uL (0.1-1.2); Monocytes Percent Auto 6.3 % (2-11); Neutrophils Absolute Auto 5.4 x10*3/uL (2.0-8.3); Neutrophils Percent Auto 58.2 % (45-73); Platelet Count 281 X10*3/uL (160-400); Red Blood Count 3.86 X10*6/uL (4.20-5.50); Red Cell Distribution Width 12.6 % (11.0-16.0); White Blood Count 9.2 X10*3/uL (4.8-10.8)
[2023-02-02 02:58] LABS: Anion Gap 18 (12-20); Blood Urea Nitrogen 38 mg/dL (9-16); Calcium 10.5 mg/dL (8.4-10.2); Carbon Dioxide 25 mmol/L (22-29); Chloride 100 mmol/L (96-108); Creatinine Clr Calc Pharmacy 32.4; Estimated Glomerular Filt Rate 32; Glucose Random 230 mg/dL (60-115); Potassium 4.3 mmol/L (3.3-5.1); Sodium 139 mmol/L (135-145)
[2023-02-02 03:05] LABS: Troponin-I High Sensitivity 3.7 ng/L (<3.5-17.0)
[2023-02-02 03:16] LABS: B Type Natriuretic Peptide 72 pg/mL (<100)
[2023-02-02 03:19] LABS: TSH reflex Free T4 2.61 uIU/mL (0.32-4.0)
[2023-02-02 03:22] LABS: Appearance Urine Clear; Color Urine Yellow; Glucose Urine UA >=1000 mg/dL (Negative); Leukocyte Esterase Urine Negative (Negative); Nitrite Urine Negative (Negative); PH 5.5 (5.0-9.0); Specific Gravity - Urine 1.025 (1.005-1.025); UMIC TRIGGER UACC YES; Urine Blood Negative (Negative); Urine Ketones Negative (Negative); Urine Protein Negative (Neg-Trace)
--- NOTE | 2023-02-02 03:26 | ED.GENADULT ---
HPI - General Adult General Chief complaint: Headache Stated complaint: Low Blood Pressure/Dizziness Time Seen by Provider: 02/02/23 01:44 Source: patient Mode of arrival: ambulatory Limitations: no limitations History of Present Illness HPI narrative: 69-year-old female presents with multiple complaints. Patient was recently seen in the emergency department for bronchitis treated with antibiotics. She has been having some chest discomfort and shortness of breath since his. Time that has improved. However today, patient describes headache that is frontal radiating to the back. There is no neck pain. She describes the pain is 8/10. There is no photo or phonophobia. There is no nausea vomiting. There is no fevers or chills. She denies any neck pain or stiffness. She denies any nausea vomiting. She denies any focal neurologic deficits. There is no clear relieving or exacerbating features. The headache is constant. Her headache is also associated with lightheadedness. This appears to be associated with her blood pressure is systolically 90/60 at home. She feels much better when her blood pressure is 120/78. Patient is also been having some chest tightness. This has been going on for at least 1 week. The chest pain is intermittent. It is not associated with exertion. There is no nausea vomiting or significant shortness of breath. She is/has been treated with antibiotics. Related Data Home Medications Medication Instructions Recorded Confirmed acetaminophen 500 mg tablet 500 mg PO Q6H PRN pain 04/26/22 08/26/22 carvedilol 25 mg tablet 25 mg PO BID 04/26/22 08/26/22 clopidogrel 75 mg tablet 75 mg PO DAILY 04/26/22 08/26/22 furosemide 20 mg tablet 20 mg PO DAILY 04/26/22 08/26/22 gabapentin 600 mg tablet 600 mg PO DAILY 04/26/22 08/26/22 glipizide 10 mg tablet 10 mg PO BID 04/26/22 08/26/22 isosorbide mononitrate 30 mg 30 mg PO DAILY 04/26/22 08/26/22 tablet,extended release 24 hr levothyroxine 88 mcg tablet 88 mcg PO DAILY 04/26/22 08/26/22 metformin 1,000 mg tablet 1,000 mg PO BID 04/26/22 08/26/22 simvastatin 20 mg tablet 20 mg PO BEDTIME 04/26/22 08/26/22 spironolactone 25 mg tablet 25 mg PO DAILY 04/26/22 08/26/22 sacubitril 24 mg-valsartan 26 mg 1 tab PO BID 10/08/22 tablet (Entresto) sacubitril 24 mg-valsartan 26 mg 1 tab PO BID 10/08/22 tablet (Entresto) Previous Rx's Medication Instructions Recorded melatonin 10 mg tablet 10 mg PO BEDTIME PRN sleep #30 tabs 10/08/22 oxycodone-acetaminophen 5 mg-325 1 tab PO Q6H PRN pain #5 tabs 10/17/22 mg tablet lorazepam 1 mg tablet (Ativan) 1 mg PO BEDTIME PRN sleep #10 tabs 11/05/22 albuterol sulfate 2.5 mg/3 mL 2.5 mg (3 mL) inhalation Q4-6H PRN 01/23/23 (0.083 %) solution for nebulization shortness of breath or wheezing #90 mL doxycycline hyclate 100 mg tablet 100 mg PO BID #14 tabs 01/23/23 prednisone 20 mg tablet 20 mg PO BID #10 tabs 01/23/23 Allergies Allergy/AdvReac Type Severity Reaction Status Date / Time Penicillins Allergy Intermediate Rash Verified 10/30/22 13:54 Review of Systems Review of Systems: CONSTITUTIONAL: Denies weight loss, fever and chills. HEENT: Denies changes in vision and hearing. RESPIRATORY: Denies SOB and cough. CV: Denies palpitations + CP. GI: Denies abdominal pain, nausea, vomiting and diarrhea. : Denies dysuria and urinary frequency. MSK: Denies myalgia and joint pain. SKIN: Denies rash and pruritus. NEUROLOGICAL: + headache - syncope. PSYCHIATRIC: Denies recent changes in mood. Denies anxiety and depression. All other ROS are negative unless in HPI PMFSH Past Medical History Medical History Breast cancer, right breast COVID-19 GERD (gastroesophageal reflux disease) Neuropathy Sleep apnea Vitamin B12 deficiency Surgical History H/O right mastectomy History of appendectomy History of bilateral oophorectomies History of cholecystectomy Family History Family History Father No problems noted. Mother No problems noted. Social History Social History Household Members: Spouse and Family Housing: House Alcohol intake: current Alcohol intake frequency: holidays/special occasions only Patient Tobacco Use Status: Never used Tobacco Advance Directives: No Advance Directives Information Provided: No service: No Current occupational status: retired Physical Exam ED Vital Signs: Vital Signs - 24 hr 02/02/23 01:36 02/02/23 02:16 02/02/23 03:44 Temperature 97.1 F 97.8 F Pulse Rate 82 82 79 Respiratory Rate 19 20 15 Blood Pressure 119/71 101/38 L 92/35 L Pulse Oximetry 96 98 98 Oxygen Delivery Method Room Air Room Air Room Air BMI result Body Mass Index 35.2 GEN: Well developed, no acute distress, alert, oriented HEENT: Normocephalic, atraumatic, normal external ears, nose appears normal, no oropharyngeal edema or exudates Eyes: Normal to appearance Neck: Supple, no lymphadenopathy Respiratory: Talks in complete sentences, no respiratory distress, clear to auscultation bilaterally Cardiovascular: Regular rate and rhythm, no murmurs rubs or gallops Abdomen: Soft, nontender, nondistended, no guarding, no rebound Back: No CVA tenderness Extremities: No clubbing cyanosis or edema Neurologic: No focal neurologic deficits, cranial nerves 2-12 intact, strength is 5/5 bilaterally Skin: No rash Course Reevaluation(s) Reevaluation #1: CT scan shows microvascular disease. Patient is currently on Plavix and atorvastatin. Patient to follow-up with her primary care provider to determine if there are any additional adjustments a need being made on her behalf. Time: 04:27 Reevaluation #2: Patient's blood pressure is 120/50. She is feeling less lightheaded. She had her head pain is now 4/10. The workup otherwise is unremarkable with the exception of a bump in her creatinine. I did inform the patient that she should seek the evaluation of her primary care provider for repeat lab testing. I have also recommended that she follow-up with her commercial diver for evaluation of her blood pressure. I will cut her carvedilol to 12.5 mg twice daily from 25 mg to improve her symptoms. Time: 05:04 Medications Administered Discontinued Medications Generic Name Dose Route Start Last Admin Trade Name Shaheen PRN Reason Stop Dose Admin Acetaminophen 975 mg 02/02/23 02:30 02/02/23 02:46 Acetaminophen 325 Mg Tablet PO 02/02/23 02:31 975 mg ONCE ONE Administration Sodium Chloride 500 mls @ 500 mls/hr 02/02/23 02:30 02/02/23 02:46 Ns IV 02/02/23 03:29 500 mls/hr .Q1H ELROY Administration Medical Decision Making Medical Decision Making [facility] Narrative: Patient presents with multiple complaints Headache: Patient has been having a frontal headache radiating to the back. Examination revealed no neck stiffness or meningeal signs. She is afebrile. Patient is nonfocal neurologically. Headache could be hypotensive, medication related, temporal arteritis, tension, sinus, cluster. Patient is on Plavix. Will do CT scan head to rule out acute intracranial process or mass effect. Patient can get Tylenol for pain. Patient is also complaining of lightheadedness. This appears to be blood pressure related. Blood pressure is actually fairly stable for her. However, she does feel better to slightly elevated blood pressure. Would consider alternate her medication ever so slightly her improve her blood pressure is low she is able to follow up with her commercial diver. Will provider with 500 cc normal saline bolus. Would be hesitant to do more given her history of CHF. Differential diagnosis includes blood pressure related, orthostatic, hyponatremia, electrolyte abnormality, hypoglycemia. Differential Diagnosis Differential Diagnoses: The differential diagnosis associated with the presentation includes (See above) Admission/Observation Consideration of admission/observation: Escalation of care including admission/observation considered Lab Data [facility] Lab Attestation statement: I reviewed the patient's lab results. 02/02/23 02:37 02/02/23 02:37 Labs: Lab Results 02/02/23 02/02/23 02/02/23 Range/Units 02:37 02:37 02:37 WBC 9.2 (4.8-10.8) X10*3/uL RBC 3.86 L (4.20-5.50) X10*6/uL Hgb 12.9 (12.0-16.0) g/dl Hct 37.5 (37.0-47.0) % MCV 97.2 (80.0-98.0) fL MCH 33.4 H (27.0-33.0) pg MCHC 34.4 (31.0-35.0) g/dl RDW 12.6 (11.0-16.0) % Plt Count 281 (160-400) X10*3/uL MPV 10.2 (9.4-12.3) fL Immature Gran % (Auto) 1.0 H (0.0-0.4) % Neut % (Auto) 58.2 (45-73) % Lymph % (Auto) 32.1 (20-40) % [place] % (Auto) 6.3 (2-11) % Eos % (Auto) 2.1 (0-4) % Baso % (Auto) 0.3 (0-2) % Lymph # (Auto) 3.0 (1.2-4.9) X10*3/uL [place] # (Auto) 0.6 (0.1-1.2) X10*3/uL Eos # (Auto) 0.2 (0.0-0.4) X10*3/uL Baso # (Auto) 0.0 (0.0-0.2) X10*3/uL Abs Immat Gran (auto) 0.09 H (0.00-0.03) X10*3/uL Absolute Neuts (auto) 5.4 (2.0-8.3) x10*3/uL Absolute Nucleated RBC 0.000 (0.0-0.012) X10*3/uL Nucleated RBC % (auto) 0.0 (0.0-0.2) /100WBC ESR (0-20) MM/HR Sodium 139 (135-145) mmol/L Potassium 4.3 (3.3-5.1) mmol/L Chloride 100 (96-108) mmol/L Carbon Dioxide 25 (22-29) mmol/L Anion Gap 18 (12-20) BUN 38 H (9-16) mg/dL Creatinine 1.58 H (0.5-1.4) mg/dL Estim Creat Clear Calc 32.4 Estimated GFR 32 Random Glucose 230 H (60-115) mg/dL Calcium 10.5 H (8.4-10.2) mg/dL Troponin I High Sens 3.7 (<3.5-17.0) ng/L B-Natriuretic Peptide (<100) pg/mL TSH (0.32-4.0) uIU/mL Urine Color Urine Appearance Urine pH (5.0-9.0) Ur Specific [employer] [place] (1.005-1.025) Urine Protein (Neg-Trace) mg/dL Urine Glucose (UA) (Negative) mg/dL Urine Ketones (Negative) mg/dL Urine Blood (Negative) Urine Nitrite (Negative) Ur Leukocyte Esterase (Negative) Urine RBC (0-2) /HPF Urine WBC (0-5) /HPF Ur Squamous Epith Cells (0-2) /HPF Urine Bacteria (None Seen) Hyaline Casts (0-2) /LPF 02/02/23 02/02/23 02/02/23 Range/Units 02:37 02:37 02:37 WBC (4.8-10.8) X10*3/uL RBC (4.20-5.50) X10*6/uL Hgb (12.0-16.0) g/dl Hct (37.0-47.0) % MCV (80.0-98.0) fL MCH (27.0-33.0) pg MCHC (31.0-35.0) g/dl RDW (11.0-16.0) % Plt Count (160-400) X10*3/uL MPV (9.4-12.3) fL Immature Gran % (Auto) (0.0-0.4) % Neut % (Auto) (45-73) % Lymph % (Auto) (20-40) % [place] % (Auto) (2-11) % Eos % (Auto) (0-4) % Baso % (Auto) (0-2) % Lymph # (Auto) (1.2-4.9) X10*3/uL [place] # (Auto) (0.1-1.2) X10*3/uL Eos # (Auto) (0.0-0.4) X10*3/uL Baso # (Auto) (0.0-0.2) X10*3/uL Abs Immat Gran (auto) (0.00-0.03) X10*3/uL Absolute Neuts (auto) (2.0-8.3) x10*3/uL Absolute Nucleated RBC (0.0-0.012) X10*3/uL Nucleated RBC % (auto) (0.0-0.2) /100WBC ESR 7 (0-20) MM/HR Sodium (135-145) mmol/L Potassium (3.3-5.1) mmol/L Chloride (96-108) mmol/L Carbon Dioxide (22-29) mmol/L Anion Gap (12-20) BUN (9-16) mg/dL Creatinine (0.5-1.4) mg/dL Estim Creat Clear Calc Estimated GFR Random Glucose (60-115) mg/dL Calcium (8.4-10.2) mg/dL Troponin I High Sens (<3.5-17.0) ng/L B-Natriuretic Peptide 72 (<100) pg/mL TSH 2.61 (0.32-4.0) uIU/mL Urine Color Urine Appearance Urine pH (5.0-9.0) Ur Specific [employer] [place] (1.005-1.025) Urine Protein (Neg-Trace) mg/dL Urine Glucose (UA) (Negative) mg/dL Urine Ketones (Negative) mg/dL Urine Blood (Negative) Urine Nitrite (Negative) Ur Leukocyte Esterase (Negative) Urine RBC (0-2) /HPF Urine WBC (0-5) /HPF Ur Squamous Epith Cells (0-2) /HPF Urine Bacteria (None Seen) Hyaline Casts (0-2) /LPF 02/02/23 Range/Units 03:16 WBC (4.8-10.8) X10*3/uL RBC (4.20-5.50) X10*6/uL Hgb (12.0-16.0) g/dl Hct (37.0-47.0) % MCV (80.0-98.0) fL MCH (27.0-33.0) pg MCHC (31.0-35.0) g/dl RDW (11.0-16.0) % Plt Count (160-400) X10*3/uL MPV (9.4-12.3) fL Immature Gran % (Auto) (0.0-0.4) % Neut % (Auto) (45-73) % Lymph % (Auto) (20-40) % [place] % (Auto) (2-11) % Eos % (Auto) (0-4) % Baso % (Auto) (0-2) % Lymph # (Auto) (1.2-4.9) X10*3/uL [place] # (Auto) (0.1-1.2) X10*3/uL Eos # (Auto) (0.0-0.4) X10*3/uL Baso # (Auto) (0.0-0.2) X10*3/uL Abs Immat Gran (auto) (0.00-0.03) X10*3/uL Absolute Neuts (auto) (2.0-8.3) x10*3/uL Absolute Nucleated RBC (0.0-0.012) X10*3/uL Nucleated RBC % (auto) (0.0-0.2) /100WBC ESR (0-20) MM/HR Sodium (135-145) mmol/L Potassium (3.3-5.1) mmol/L Chloride (96-108) mmol/L Carbon Dioxide (22-29) mmol/L Anion Gap (12-20) BUN (9-16) mg/dL Creatinine (0.5-1.4) mg/dL Estim Creat Clear Calc Estimated GFR Random Glucose (60-115) mg/dL Calcium (8.4-10.2) mg/dL Troponin I High Sens (<3.5-17.0) ng/L B-Natriuretic Peptide (<100) pg/mL TSH (0.32-4.0) uIU/mL Urine Color Yellow Urine Appearance Clear Urine pH 5.5 (5.0-9.0) Ur Specific [employer] [place] 1.025 (1.005-1.025) Urine Protein Negative (Neg-Trace) mg/dL Urine Glucose (UA) >=1000 H (Negative) mg/dL Urine Ketones Negative (Negative) mg/dL Urine Blood Negative (Negative) Urine Nitrite Negative (Negative) Ur Leukocyte Esterase Negative (Negative) Urine RBC 3-5 H (0-2) /HPF Urine WBC 0-5 (0-5) /HPF Ur Squamous Epith Cells 0-2 (0-2) /HPF Urine Bacteria None Seen (None Seen) Hyaline Casts 0-2 (0-2) /LPF Independent Interpretation I performed an independent interpretation of an: EKG (Normal sinus rhythm heart rate 81, first-degree AV block, LVH by lead aVL, nonspecific ST T wave changes, no acute ST elevations or depressions.), Plain X-Ray (No acute cardiopulmonary disease) and CT Scan (Head: No acute intracranial process) Radiology Impression Discussion of test interpretation with radiology: I have reviewed the radiologist's reading. Radiologist Impression: CT/CT head/brain wo IV con IMPRESSION: No acute intracranial pathology. Chronic small vessel ischemic disease and volume loss. ? Dictated By: Bal Gan MD Signed By: <Electronically signed by Bal Gan MD in OV> 02/02/23 0943 Independent Historian Clinical information obtained from an independent historian. History obtained from or confirmed by: Other (Family member) Prescription Management I considered prescription management with: Pain Medication Chronic Conditions Patient?s care impacted by: Other (CHF) Discharge Plan Discharge Clinical Impression: Headache, Lightheadedness, HUSEYIN (acute kidney injury) Patient Disposition: Home, Self-Care Instructions: Acute Kidney Injury (DC), General Headache (ED), Lightheadedness (ED) Additional Instructions: Follow-up with your primary care doctor regarding your kidney lab testing. I recommend follow-up in 1 week with repeat blood test. In addition, he should follow up with her commercial diver this week for medication adjustment. In the meantime, I am recommending that you reduce recurvatum wall to 12.5 mg twice daily from 25 mg. Prescriptions: No Action oxycodone-acetaminophen 5-325 mg tablet 1 tab PO Q6H PRN (Reason: pain) Qty: 5 0RF Rx Instructions: Partial Fill upon patient request. lorazepam [Ativan] 1 mg tablet 1 mg PO BEDTIME PRN (Reason: sleep) Qty: 10 0RF prednisone 20 mg tablet 20 mg PO BID Qty: 10 0RF doxycycline hyclate 100 mg tablet 100 mg PO BID Qty: 14 0RF albuterol sulfate 2.5 mg /3 mL (0.083 %) solution for nebulization 2.5 mg inhalation Q4-6H PRN (Reason: shortness of breath or wheezing) Qty: 90 0RF simvastatin 20 mg tablet 20 mg PO BEDTIME clopidogrel 75 mg tablet 75 mg PO DAILY spironolactone 25 mg tablet 25 mg PO DAILY isosorbide mononitrate 30 mg tablet extended release 24 hr 30 mg PO DAILY glipizide 10 mg tablet 10 mg PO BID levothyroxine 88 mcg tablet 88 mcg PO DAILY metformin 1,000 mg tablet 1,000 mg PO BID furosemide 20 mg tablet 20 mg PO DAILY gabapentin 600 mg tablet 600 mg PO DAILY acetaminophen 500 mg tablet 500 mg PO Q6H PRN (Reason: pain) carvedilol 25 mg tablet 25 mg PO BID Entresto 24-26 mg tablet 1 tab PO BID melatonin 10 mg tablet 10 mg PO BEDTIME PRN (Reason: sleep) Qty: 30 6RF Entresto 24-26 mg tablet 1 tab PO BID Referrals: Lupe Moralez FNP [Primary Care Provider] - 5 days
[2023-02-02 03:27] LABS: Erythrocyte Sedimentation Rate 7 MM/HR (0-20)
[2023-02-02 03:28] LABS: Bacteria Urine None Seen (None Seen); Hyaline Casts Urine 0-2 /LPF (0-2); Squamous Epithelial Cell Urine 0-2 /HPF (0-2); WBC Urine 0-5 /HPF (0-5)
[2023-02-02 03:44] VITALS: BP 92/35; PULSE 79; RESP 15; TEMP 36.6; O2SAT 98
[2023-02-02 05:18] VITALS: BP 108/50; PULSE 77; RESP 19; O2SAT 96
== END 2023-02-02 05:40 | disposition home or self-care (01) ==
PROVIDERS: Emergency Provider Emergency Medicine; PCP Registered Nurse
DX: R51.9 Headache, unspecified (principal); N17.9 Acute kidney failure, unspecified; R42 Dizziness and giddiness
CPT/HCPCS: 36415; 70450; 71045; 80048; 81001; 83880; 84443; 84484; 85025; 85652; 93005; 96360; 99284; 99285

== ENCOUNTER 2023-02-10 11:15 | Outpatient (REF) | payer OTHER, SELFPAY ==
[2023-02-10 12:47] LABS: Anion Gap 15 (12-20); Blood Urea Nitrogen 24 mg/dL (9-16); Calcium 9.8 mg/dL (8.4-10.2); Carbon Dioxide 25 mmol/L (22-29); Chloride 105 mmol/L (96-108); Estimated Glomerular Filt Rate 47; Sodium 141 mmol/L (135-145)
== END 2023-02-10 11:16 | disposition home or self-care (01) ==
LOC: HO.LAB 11:15
PROVIDERS: PCP Registered Nurse; Visit Provider Nurse Practitioner Family
DX: M54.9 Dorsalgia, unspecified (principal)
CPT/HCPCS: 36415; 80051; 82310; 82565; 84520

== ENCOUNTER 2023-02-25 13:41 | Outpatient (AMB) | payer OTHER, SELFPAY ==
--- NOTE | 2023-02-25 13:51 | A.OFFVIS_ITS ---
Intake Vital Signs 02/25/23 13:52 Height 5 ft 3 in Weight 205 lb 2 oz BMI 36.3 BP 118/72 Blood Pressure Location Rt brachial Position Sitting Pulse 68 Pulse Source Pulse Oximeter Pulse Oximetry (%) 98 Oxygen Delivery Method Room Air Intake Visit Reasons: 4 mo follow up- Daytime sleepiness-Conf Intake Note: Patient presents for 4 month follow up Allergies Penicillins Allergy (Intermediate, Verified 03/15/23 15:13) Rash HPI HPI Comments History of Present Illness Details 77 y/o female patient presents with her daughter for follow up of insomnia, VAMSI on CPAP. The CPAP compliance and therapy response (11/20/22-02/17/23) reviewed with the patient. She is on APAP [id number]. Usage days 86and average usage hours 6 hours 45 min. The mean pressure is 7.1 and the residual AHI was 1.5/hr She is on trazodone 25 mg, and it helps her to fall asleep. She still having inconsistent sleep schedule. Pt's passed in November. She started to sees therapist weekly. She has a plan for aortic valve replacement in March. [facility] Medical History Bilateral hand numbness Breast cancer, right breast COVID-19 Daytime sleepiness GERD (gastroesophageal reflux disease) Neuropathy Numbness of left hand Sleep apnea Vitamin B12 deficiency Surgical History H/O right mastectomy History of appendectomy History of bilateral oophorectomies History of carpal tunnel release History of cholecystectomy Family History Father No problems noted. Mother No problems noted. Social History Household Members: Spouse and Family Housing: House Alcohol intake: never Patient Tobacco Use Status: Never used Tobacco Smoked in Last 30 Days: No Use of substances other than those prescribed or required for medical reasons: No Advance Directives: No Advance Directives Information Provided: Yes Patient : No service: No Current occupational status: retired Review of Systems Const All systems reviewed & are unremarkable except as noted in HPI and below ENT Reports Normal hearing present Neuro Reports Normal hearing present Physical Exam Vital Signs: Last Vital Signs Pulse 68 02/25/23 13:52 BP 118/72 02/25/23 13:52 Pulse Ox 98 02/25/23 13:52 Oxygen Delivery Method Room Air 02/25/23 13:52 BMI result Body Mass Index 36.3 Const General: cooperative Nutritional Appearance: obese Orientation/consciousness: patient oriented x3 Limitations: language barrier ([place] speaaking only) Neck Neck: Yes full ROM and Yes supple Resp Effort & Inspection: normal respiratory effort and able to speak in complete sentences Neuro General: patient oriented x3 and moves all extremities Cranial nerves: Yes Bilaterally intact EOM present, Yes Normal facial strength present, Yes Midline tongue present, Yes Symmetric palate elevation present, Yes Normal hearing present, Yes Ability to bilaterally rotate head present and Yes Ability to bilaterally elevate shoulders present Cognition (Neuro): normal cognition Motor exam (neuro): 5/5 motor strength present throughout Psych Appearance: grossly normal Mental Status: mental status grossly normal Speech and movement: Normal speech and movement present Affect: normal affect Attitude: cooperative Assessment & Plan Assessment & Plan (1) VAMSI on CPAP: Comment: Mild degree of sleep apnea. The total AHI was 7/hr and oxygen concetta was 76%. Code(s): G47.33 - Obstructive sleep apnea (adult) (pediatric); Z99.89 - Dependence on other enabling machines and devices (2) Insomnia: Code(s): G47.00 - Insomnia, unspecified Plan Continue to use APAP [id number] as patient experiences good clinical effects. Advised patient to continue to take melatonin to 10 mg and trazodone 25 mg qHS. Sleep hygiene education provided. Advised patient to try routine sleep schedule. Medications: Discontinued albuterol sulfate 2.5 mg (3 mL) inhalation Q4-6H PRN 90 mL 0RF shortness of breath or wheezing Coding Level of Care Code Est Pt Level 3 (33858) Diagnoses VAMSI on CPAP G47.33; Z99.89 Insomnia G47.00
[2023-02-25 13:52] VITALS: BP 118/72; PULSE 68; O2SAT 98; BMI 36.3
== END 2023-02-25 14:16 | disposition home or self-care (01) ==
LOC: HO.HSMC 13:41
PROVIDERS: PCP Registered Nurse; Visit Provider Nurse Practitioner Family
DX: G47.33 Obstructive sleep apnea (adult) (pediatric) (principal); Z99.89 Dependence on other enabling machines and devices; G47.00 Insomnia, unspecified
CPT/HCPCS: 99213

== ENCOUNTER → 2023-02-25 13:41 | Outpatient (BNVA) | payer OTHER, SELFPAY | PROVIDERS: PCP Registered Nurse; Visit Provider Nurse Practitioner Family | DX: G47.33 Obstructive sleep apnea (adult) (pediatric) (principal); G47.00 Insomnia, unspecified; Z79.899 Other long term (current) drug therapy; Z99.89 Dependence on other enabling machines and devices | CPT/HCPCS: 99212 ==

== ENCOUNTER 2023-03-11 18:27 | Outpatient (REF) | payer OTHER, SELFPAY | END 2023-03-11 18:28 | disposition home or self-care (01) | LOC: HO.HHCLNP 18:27 | PROVIDERS: Visit Provider Nurse Practitioner Primary Care | DX: R82.90 Unspecified abnormal findings in urine (principal) | CPT/HCPCS: 87086; 87088; 87186 ==

== ENCOUNTER 2023-03-12 09:07 | Outpatient (REF) | payer OTHER, SELFPAY ==
--- NOTE | ~2023-03-12 | CT_ITS ---
EXAMINATION: CT ABDOMEN AND PELVIS WITHOUT CONTRAST CLINICAL INFORMATION: Tenderness. Stone study. COMPARISON: None available. TECHNIQUE: Multidetector volumetric imaging was performed from the superior aspect of the liver through the pubic symphysis. Sagittal and coronal reformatted images were obtained on the technologist's workstation. This CT examination was performed using dose optimization techniques as appropriate, variously including the following: *Automated exposure control *Adjustment of mA and/or kV according to patient size (this includes techniques or standardized protocols for targeted exams where dose is matched to indication/reason for exam; i.e. extremities or head) *Use of iterative reconstruction technique DLP: 788 mGy-cm. FINDINGS: LUNG BASES: The visualized lung bases are unremarkable. There is a total right mastectomy. There is dense tricuspid and mild mitral valve calcifications. LIVER, GALLBLADDER, AND BILIARY TREE: The liver is normal in size, shape, and attenuation. No focal hepatic lesion or biliary ductal dilatation is present. The gallbladder is unremarkable with no evidence of radiopaque gallstones, gallbladder wall thickening, or obvious pericholecystic inflammatory changes. PANCREAS: Unremarkable. SPLEEN: Unremarkable. ADRENAL GLANDS: Unremarkable. KIDNEYS AND URETERS: The kidneys are normal in size, shape, and attenuation. No hydronephrosis, hydroureter, or calculi seen. No perinephric stranding. A 8 mm hypodensity in the midpole right kidney, probable cyst is seen. BLADDER: Unremarkable. GASTROINTESTINAL TRACT: There is scattered stool, diverticuli and gas seen throughout the colon without significant distention. The small bowel loops are normal caliber. Appendix is not visualized, likely from surgery. There is a surgical staple there. No free air or free fluid is seen. No inflammatory process. ABDOMINAL WALL: No significant hernia is appreciated. LYMPH NODES: Small shotty lymph nodes are seen in the retroperitoneum, largest measuring 8 mm posterior to aorta, image 59/3 and 8 mm aortocaval lymph node, coronal image 48/6. VASCULAR: Mild atherosclerosis. PELVIC VISCERA: Scattered phleboliths in the pelvis. The uterus is surgically absent. No free fluid. OSSEOUS STRUCTURES: There are degenerative disc changes at L5-S1, L3-L4 and L1-L2 disc levels. No aggressive lytic or sclerotic process seen. CT/CT abdomen pelvis wo IV con IMPRESSION: 1. No radiopaque urolith or hydroureteronephrosis. 2. Scattered colonic diverticulosis without diverticulitis. Mild constipation. Fleischner guidelines were followed.
[2023-03-12 11:04] LABS: B Type Natriuretic Peptide 63 pg/mL (<100)
== END 2023-03-12 09:08 | disposition home or self-care (01) ==
LOC: HO.CT 09:07
PROVIDERS: Absent Provider Nurse Practitioner Primary Care; PCP Registered Nurse; Visit Provider Nurse Practitioner Family
DX: M54.9 Dorsalgia, unspecified (principal)
CPT/HCPCS: 36415; 74176; 83880

== ENCOUNTER 2023-03-15 15:00 | Inpatient (IN) | payer OTHER, SELFPAY ==
--- NOTE | ~2023-03-15 | CT_ITS ---
EXAMINATION: CT ABDOMEN AND PELVIS WITHOUT CONTRAST CLINICAL INFORMATION: Flank pain COMPARISON: Previous CT of the abdomen and pelvis 03/12/2023 TECHNIQUE: Multidetector volumetric imaging was performed from the superior aspect of the liver through the pubic symphysis. Sagittal and coronal reformatted images were obtained on the technologist's workstation. This CT examination was performed using dose optimization techniques as appropriate, variously including the following: *Automated exposure control *Adjustment of mA and/or kV according to patient size (this includes techniques or standardized protocols for targeted exams where dose is matched to indication/reason for exam; i.e. extremities or head) *Use of iterative reconstruction technique DLP: 753 mGy-cm FINDINGS: LUNG BASES: The visualized lung bases are clear. Right breast implant. Aortic valve and coronary artery calcification. LIVER, GALLBLADDER, AND BILIARY TREE: The liver is normal in size, shape, and attenuation. No focal hepatic lesion or biliary ductal dilatation is present. The gallbladder has been removed. PANCREAS: Unremarkable. SPLEEN: Unremarkable. ADRENAL GLANDS: Unremarkable. KIDNEYS AND URETERS: The kidneys are normal in size, shape, and attenuation. No hydronephrosis, hydroureter, or calculi seen. No perinephric stranding. BLADDER: Unremarkable. GASTROINTESTINAL TRACT: Diverticulosis of the colon. The small and large bowel are unremarkable. The appendix is not seen and may have been removed.. ABDOMINAL WALL: Diastasis of the rectus muscles and small umbilical hernia containing fat. LYMPH NODES: Normal. VASCULAR: Unremarkable. PELVIC VISCERA: The uterus appears to have been removed. No pelvic mass. OSSEOUS STRUCTURES: Degenerative changes of the spine and left hip joint. CT/CT abdomen pelvis wo IV con IMPRESSION: No stone or hydronephrosis. Diverticulosis. No evidence of diverticulitis. Fleischner guidelines were followed.
--- NOTE | ~2023-03-15 | XR_ITS ---
EXAMINATION: XR CHEST CLINICAL INFORMATION: Congestion, cough. COMPARISON: Chest radiograph 02/02/2023. TECHNIQUE: Frontal view of the chest was obtained. FINDINGS: Stable prominence of the cardiomediastinal silhouette. Diffuse interstitial thickening without discrete focal airspace opacity, pleural effusion or pneumothorax. No displaced osseous fractures. Chronic mild asymmetric elevation of the right hemidiaphragm. Visualized upper abdomen is within normal limits. XR/XR chest 1V IMPRESSION: Mild diffuse interstitial thickening which is nonspecific and could be seen with small airways disease or atypical/viral infections.
[2023-03-15 15:13] VITALS: BP 97/35; PULSE 76; RESP 18; TEMP 36.6; O2SAT 97; BMI 35.0
--- NOTE | 2023-03-15 15:14 | ED.GENADULT ---
HPI - General Adult General Chief complaint: Urogenital-Female Stated complaint: Vaginal pain/blood in urine Time Seen by Provider: 03/15/23 15:41 Source: patient, family (patient's daughter) and spanish interpreter/translator Mode of arrival: ambulatory Limitations: language barrier History of Present Illness HPI narrative: Patient is a 77 year old assigned female at with a history of breast cancer presenting to the emergency department today with left sided flank pain and blood in her urine. Patient states that 3 days ago she was diagnosed with a UTI at a walk in clinic and was prescribed bactrim. Patient states that she is now passing blood in her urine and having left flank pain. Patient denies any vaginal bleeding or discharge, dizziness, lightheadedness, abdominal pain, nausea, vomiting, fever, chills, blurry vision, double vision, loss of vision, chest pain, difficulty breathing, shortness of breath, back pain, night sweats, pain with urination, increased urinary frequency, increased urinary urgency, blood in her stool, syncope or a near syncopal episode, recent trauma or falls, bowel incontinence, bladder incontinence, bowel retention, bladder retention, or any other complaints at this time. Location: left (flank) Severity: mild Severity scale (1-10): 4 Quality: aching Pain Consistency: constant Relieving factors: none Exacerbating factors: none Associated symptoms: denies other symptoms Treatments prior to arrival: other (PO Bactrim for UTI) Related Data Home Medications Medication Instructions Recorded Confirmed acetaminophen 500 mg tablet 500 mg PO Q6H PRN pain 04/26/22 02/07/23 clopidogrel 75 mg tablet 75 mg PO DAILY 04/26/22 02/07/23 gabapentin 600 mg tablet 600 mg PO BEDTIME 04/26/22 02/07/23 isosorbide mononitrate 30 mg 30 mg PO DAILY 04/26/22 02/07/23 tablet,extended release 24 hr levothyroxine 88 mcg tablet 88 mcg PO DAILY@0600 04/26/22 02/07/23 metformin 1,000 mg tablet 1,000 mg PO BID 04/26/22 02/07/23 simvastatin 20 mg tablet 20 mg PO BEDTIME 04/26/22 02/07/23 spironolactone 25 mg tablet 25 mg PO DAILY 04/26/22 02/07/23 sacubitril 24 mg-valsartan 26 mg 1 tab PO BID 10/08/22 02/07/23 tablet (Entresto) dapagliflozin propanediol 10 mg 10 mg PO DAILY@1200 02/07/23 02/07/23 tablet carvedilol 25 mg tablet 12.5 mg PO BID 02/25/23 furosemide 20 mg tablet 40 mg PO DAILY 02/25/23 trazodone 50 mg tablet 25 mg PO BEDTIME PRN Sleep 02/25/23 albuterol sulfate 2.5 mg/3 mL 2.5 mg inhalation Q6H PRN 03/15/23 (0.083 %) solution for nebulization shortness of breath or wheezing budesonide-formoterol HFA 160 1 puff inhalation BID 03/15/23 mcg-4.5 mcg/actuation aerosol inhaler (Symbicort) cyanocobalamin (vitamin B-12) 1,000 mcg sublingual FR@0900 03/15/23 1,000 mcg sublingual tablet gabapentin 300 mg capsule 300 mg PO DAILY 03/15/23 glipizide 5 mg tablet 5 mg PO BID 03/15/23 lidocaine 5 % topical patch 1 patch topical DAILY PRN Pain 03/15/23 lidocaine-prilocaine 2.5 %-2.5 % 1 appl topical BID PRN neuropathic 03/15/23 topical cream pain [id number] acid 0.4 1 tab PO Q OTHER DAY@1200 03/15/23 mg-lycopene 300 mcg-lutein 250 mcg tablet (Cerovite Senior) naproxen 500 mg tablet 500 mg PO BID PRN Pain 03/15/23 pantoprazole 20 mg tablet,delayed 20 mg PO BID 03/15/23 release Previous Rx's Medication Instructions Recorded melatonin 10 mg tablet 10 mg PO BEDTIME PRN sleep #30 tabs 10/08/22 mastectomy bra (bra, mastectomy) #1 ea 02/07/23 Allergies Allergy/AdvReac Type Severity Reaction Status Date / Time Penicillins Allergy Intermediate Rash Verified 03/15/23 15:13 Review of Systems Constitutional: Constitutional: Reports no additional constitutional complaints, Denies chills, Denies fever(s) and Denies night sweats Eyes: Eyes: Reports no additional eye complaints, Denies blurry vision, Denies change in vision, Denies diplopia, Denies eye discharge, Denies loss of vision and Denies eye pain ENT: Denies dizziness Cardiovascular: Cardiovascular: Reports no additional cardiovascular complaints, Denies chest pain, Denies lightheadedness, Denies Loss of Consciousness and Denies dyspnea Respiratory: Respiratory: Reports no additional respiratory complaints and Denies dyspnea Gastrointestinal: Gastrointestinal: Reports no additional gastrointestinal complaints, Denies abdominal pain, Denies melena, Denies hematochezia, Denies change in bowel habits and Denies change in stool character Genitourinary: Genitourinary: Reports hematuria, Denies urinary frequency, Denies dysuria, Denies urinary incontinence, Denies urinary hesitancy and Denies urinary urgency Comments: left flank pain Musculoskeletal: Musculoskeletal: Reports no additional musculoskeletal complaints, Denies numbness and Denies tingling Neurologic: Denies dizziness, Denies loss of vision, Denies numbness and Denies tingling Psychiatric: Psychiatric: Reports no additional psychiatric complaints Endocrine: Endocrine: Reports no additional endocrine complaints Hematologic/Lymphatic: Hematologic/Lymphatic: Reports no additional hematologic/lymphatic complaints Allergic/Immunologic: Allergic/Immunologic: Reports no additional allergic/immunologic complaints [facility] Past Medical History Attestation statement: The following information was validated with the patient. Source: old records reviewed and nursing notes reviewed Medical History (Updated 03/15/23 @ 18:14 by BARRY Rosas) Bilateral hand numbness Breast cancer, right breast COVID-19 Daytime sleepiness GERD (gastroesophageal reflux disease) Neuropathy Numbness of left hand Sleep apnea Vitamin B12 deficiency Surgical History H/O right mastectomy History of appendectomy History of bilateral oophorectomies History of carpal tunnel release History of cholecystectomy Family History Family History Father No problems noted. Mother No problems noted. Social History Social History Household Members: Spouse and Family Housing: House Alcohol intake: never Patient Tobacco Use Status: Never used Tobacco Smoked in Last 30 Days: No Use of substances other than those prescribed or required for medical reasons: No Advance Directives: No Advance Directives Information Provided: Yes Patient : No service: No Current occupational status: retired Physical Exam ED Vital Signs: Vital Signs - 24 hr 03/15/23 15:13 Temperature 97.8 F Pulse Rate 76 Respiratory Rate 18 Blood Pressure 97/35 L Pulse Oximetry 97 Oxygen Delivery Method Room Air BMI result Body Mass Index 35.0 Const General: cooperative, no acute distress, alert and awake Nutritional Appearance: well nourished Orientation/consciousness: patient oriented x3 Limitations: no limitations HENMT Head: Yes normal to inspection and Yes atraumatic Ears: hearing grossly normal bilaterally and external ears normal General nose exam: Normal external nose present, no nasal discharge noted and no epistaxis Face and sinus: Yes normal facial exam, No abrasion and No laceration Mouth: Normal oral and palatal mucosa present, no drooling and no muffled voice Eyes General: appearance normal, both eyes and all related structures Periorbital: periorbital findings normal Eyelids: Yes eyelids normal Conjunctivae: conjunctivae normal Pupils: Equal, round and reactive pupils present EOM: EOMs intact bilaterally Neck Neck: Yes normal visual inspection, Yes full ROM and Yes no lymphadenopathy Chest Chest palpation & inspection: normal inspection of the chest Resp Effort & Inspection: normal respiratory effort and able to speak in complete sentences GI Inspection: Yes normal to inspection General: Yes CVA tenderness on the left Back/Spine/Pelvis Back: CVA tenderness Neuro General: patient oriented x3 and moves all extremities Cranial nerves: Yes Equal, round and reactive pupils present Cognition (Neuro): normal cognition Motor exam (neuro): 5/5 motor strength present throughout Sensory Exam: Normal double simultaneous stimulation for sensation Coordination: [id number] test normal Extrem General: Yes normal to inspection, Yes full ROM and Yes capillary refill normal Psych Appearance: grossly normal Mental Status: mental status grossly normal Affect: normal affect Attitude: cooperative Thought process: Normal thought process present Thought content: Normal thought content present Insight: Good insight present (Psych) Course Course Course Narrative: RME- 77-year-old female presents for evaluation of burning with urination and blood in the urine. She has been on Bactrim for the last 3 days. Plan for UA Medications Administered Generic Name Dose Route Start Last Admin Trade Name Freq PRN Reason Stop Dose Admin Sodium Chloride 1,000 mls @ 999 mls/hr 03/15/23 17:30 03/15/23 17:25 Ns IV 03/15/23 18:30 999 mls/hr .Q1H1M ELROY Administration Discontinued Medications Generic Name Dose Route Start Last Admin Trade Name Freq PRN Reason Stop Dose Admin Sodium Chloride 1,000 mls @ 999 mls/hr 03/15/23 15:45 03/15/23 18:06 Ns IV 03/15/23 16:45 Infused .Q1H1M ELROY Infusion Medical Decision Making Medical Decision Making MDM Narrative: Patient is a 77 year old assigned female at with a history of right sided breast cancer and DM presenting to the emergency department today with left sided flank pain and blood in her urine. Patient's physical exam was as noted in the physical exam portion of this note. Patient's blood work showed an elevated BUN of 32, CR of 1.83, and lactic acid of 2.6. I interpreted the rest of the patient's labs are grossly normal. Patient's urine showed large blood and >20 RBC. Patient's abdomen/pelvis CT showed no acute process. I consulted with urology who recommended medical admission with continued fluid hydration and switching the patient off of bactrim for her previously diagnosed UTI. Patient's clinical presentation is not consistent with sepsis (@1750). I spoke with the hospitalist team who agreed to admission. I explained my physical exam findings as well as all test results to the patient and the patient's daughter. I answered all questions asked by the patient and the patient's daughter. Patient received IV fluids. Patient and the patient's daughter verbalized agreement and understanding with this treatment plan and admission. Differential Diagnosis Differential Diagnoses: The differential diagnosis associated with the presentation includes HUSEYIN Pyelonephritis UTI Flank pain Admission/Observation Consideration of admission/observation: Escalation of care including admission/observation considered Patient to be admitted. Consult Healthcare Provider Management of the patient was discussed with: Hospitalist (agreed to admission) and Purchaser (spoke with urology as noted in the MDM portion of this note) Lab Data [facility] Lab Attestation statement: I reviewed the patient's lab results. My interpretation of these results are in the MDM portion of this note. 03/15/23 15:34 03/15/23 15:34 Labs: Lab Results 03/15/23 03/15/23 03/15/23 Range/Units 15:34 15:34 15:34 WBC 7.2 (4.8-10.8) X10*3/uL RBC 3.64 L (4.20-5.50) X10*6/uL Hgb 11.7 L (12.0-16.0) g/dl Hct 35.1 L (37.0-47.0) % MCV 96.4 (80.0-98.0) fL MCH 32.1 (27.0-33.0) pg MCHC 33.3 (31.0-35.0) g/dl RDW 11.9 (11.0-16.0) % Plt Count 246 (160-400) X10*3/uL MPV 10.3 (9.4-12.3) fL Immature Gran % (Auto) 0.4 (0.0-0.4) % Neut % (Auto) 66.7 (45-73) % Lymph % (Auto) 22.0 (20-40) % Hyde % (Auto) 6.4 (2-11) % Eos % (Auto) 4.1 H (0-4) % Baso % (Auto) 0.4 (0-2) % Lymph # (Auto) 1.6 (1.2-4.9) X10*3/uL Hyde # (Auto) 0.5 (0.1-1.2) X10*3/uL Eos # (Auto) 0.3 (0.0-0.4) X10*3/uL Baso # (Auto) 0.0 (0.0-0.2) X10*3/uL Abs Immat Gran (auto) 0.03 (0.00-0.03) X10*3/uL Absolute Neuts (auto) 4.8 (2.0-8.3) x10*3/uL Absolute Nucleated RBC 0.000 (0.0-0.012) X10*3/uL Nucleated RBC % (auto) 0.0 (0.0-0.2) /100WBC Sodium 137 (135-145) mmol/L Potassium 4.7 (3.3-5.1) mmol/L Chloride 102 (96-108) mmol/L Carbon Dioxide 23 (22-29) mmol/L Anion Gap 17 (12-20) BUN 32 H (9-16) mg/dL Creatinine 1.83 H (0.5-1.4) mg/dL Estim Creat Clear Calc 27.9 Estimated GFR 27 Random Glucose 254 H (60-115) mg/dL Lactic Acid 2.6 H* (0.5-2.0) mmol/L Calcium 9.8 (8.4-10.2) mg/dL Total Bilirubin 0.4 (0.0-1.0) mg/dL AST 17 (5-31) U/L ALT 12 (0-31) U/L Alkaline Phosphatase 72 (39-117) U/L Total Protein 7.5 (6.5-8.0) g/dL Albumin 4.3 (3.5-5.0) g/dL Lipase 22 (8-78) U/L Urine Color Urine Appearance Urine pH (5.0-9.0) Ur Specific [place] (1.005-1.025) Urine Protein (Neg-Trace) mg/dL Urine Glucose (UA) (Negative) mg/dL Urine Ketones (Negative) mg/dL Urine Blood (Negative) Urine Nitrite (Negative) Ur Leukocyte Esterase (Negative) Urine RBC (0-2) /HPF Urine WBC (0-5) /HPF Ur Squamous Epith Cells (0-2) /HPF Urine Bacteria (None Seen) Hyaline Casts (0-2) /LPF 03/15/23 Range/Units 15:34 WBC (4.8-10.8) X10*3/uL RBC (4.20-5.50) X10*6/uL Hgb (12.0-16.0) g/dl Hct (37.0-47.0) % MCV (80.0-98.0) fL MCH (27.0-33.0) pg MCHC (31.0-35.0) g/dl RDW (11.0-16.0) % Plt Count (160-400) X10*3/uL MPV (9.4-12.3) fL Immature Gran % (Auto) (0.0-0.4) % Neut % (Auto) (45-73) % Lymph % (Auto) (20-40) % Hyde % (Auto) (2-11) % Eos % (Auto) (0-4) % Baso % (Auto) (0-2) % Lymph # (Auto) (1.2-4.9) X10*3/uL Hyde # (Auto) (0.1-1.2) X10*3/uL Eos # (Auto) (0.0-0.4) X10*3/uL Baso # (Auto) (0.0-0.2) X10*3/uL Abs Immat Gran (auto) (0.00-0.03) X10*3/uL Absolute Neuts (auto) (2.0-8.3) x10*3/uL Absolute Nucleated RBC (0.0-0.012) X10*3/uL Nucleated RBC % (auto) (0.0-0.2) /100WBC Sodium (135-145) mmol/L Potassium (3.3-5.1) mmol/L Chloride (96-108) mmol/L Carbon Dioxide (22-29) mmol/L Anion Gap (12-20) BUN (9-16) mg/dL Creatinine (0.5-1.4) mg/dL Estim Creat Clear Calc Estimated GFR Random Glucose (60-115) mg/dL Lactic Acid (0.5-2.0) mmol/L Calcium (8.4-10.2) mg/dL Total Bilirubin (0.0-1.0) mg/dL AST (5-31) U/L ALT (0-31) U/L Alkaline Phosphatase (39-117) U/L Total Protein (6.5-8.0) g/dL Albumin (3.5-5.0) g/dL Lipase (8-78) U/L Urine Color Yellow Urine Appearance Clear Urine pH 7.0 (5.0-9.0) Ur Specific [place] 1.020 (1.005-1.025) Urine Protein Negative (Neg-Trace) mg/dL Urine Glucose (UA) >=1000 H (Negative) mg/dL Urine Ketones Negative (Negative) mg/dL Urine Blood Large (3+) H (Negative) Urine Nitrite Negative (Negative) Ur Leukocyte Esterase Negative (Negative) Urine RBC >20 H (0-2) /HPF Urine WBC 0-5 (0-5) /HPF Ur Squamous Epith Cells 0-2 (0-2) /HPF Urine Bacteria None Seen (None Seen) Hyaline Casts 0-2 (0-2) /LPF Independent Interpretation I performed an independent interpretation of an: CT Scan Interpretation: My interpretation is in agreement with the radiologist's impression of this imaging study. EXAMINATION: CT ABDOMEN AND PELVIS WITHOUT CONTRAST? CLINICAL INFORMATION: Flank pain? COMPARISON: Previous CT of the abdomen and pelvis 03/12/2023 TECHNIQUE: Multidetector volumetric imaging was performed from the superior aspect of the liver through the pubic symphysis. Sagittal and coronal reformatted images were obtained on the technologist's workstation.? This CT examination was performed using dose optimization techniques as appropriate, variously including the following: *Automated exposure control *Adjustment of mA and/or kV according to patient size (this includes techniques or standardized protocols for targeted exams where dose is matched to indication/reason for exam; i.e. extremities or head) *Use of iterative reconstruction technique DLP: 753 mGy-cm FINDINGS: LUNG BASES: The visualized lung bases are clear. Right breast implant. Aortic valve and coronary artery calcification. LIVER, GALLBLADDER, AND BILIARY TREE: The liver is normal in size, shape, and attenuation. No focal hepatic lesion or biliary ductal dilatation is present. The gallbladder has been removed. PANCREAS: Unremarkable.? SPLEEN: Unremarkable.? ADRENAL GLANDS: Unremarkable.? KIDNEYS AND URETERS: The kidneys are normal in size, shape, and attenuation. No hydronephrosis, hydroureter, or calculi seen. No perinephric stranding. ? BLADDER: Unremarkable.? GASTROINTESTINAL TRACT: Diverticulosis of the colon. The small and large bowel are unremarkable. The appendix is not seen and may have been removed..? ABDOMINAL WALL: Diastasis of the rectus muscles and small umbilical hernia containing fat.? LYMPH NODES: Normal. VASCULAR: Unremarkable. PELVIC VISCERA: The uterus appears to have been removed. No pelvic mass.? OSSEOUS STRUCTURES: Degenerative changes of the spine and left hip joint.? CT/CT abdomen pelvis wo IV con IMPRESSION: No stone or hydronephrosis. Diverticulosis. No evidence of diverticulitis.? ? Fleischner guidelines were followed. Dictated By: Paula Acosta MD Signed By: Electronically signed by Paula Acosta MD 03/15/23 5604 Radiology Impression Discussion of test interpretation with radiology: I have reviewed the radiologist's reading. Independent Historian Clinical information obtained from an independent historian. History obtained from or confirmed by: Other (patient's daughter provided additional history and confirmed the history provided by the patient.) Chronic Conditions Patient?s care impacted by: Diabetes and Cancer Critical Care Time Critical Care Time Critical Care Time: Yes Total Critical Care Time: 40 Attestation: I spent 40 minutes of Critical Care Time with this patient. This does not include time spent on separately reported billable procedures. Discharge Plan Discharge Clinical Impression: Acute kidney injury Patient Disposition: Admitted As Inpatient Prescriptions: No Action dapagliflozin propanediol 10 mg Tablet 10 mg PO DAILY@1200 (DME) bra, mastectomy Crystals Qty: 1 0RF Rx Instructions: As Directed lidocaine-prilocaine 2.5-2.5 % cream 1 appl topical BID PRN (Reason: neuropathic pain) pantoprazole 20 mg tablet,delayed release (DR/EC) 20 mg PO BID lidocaine 5 % adhesive patch,medicated 1 patch topical DAILY PRN (Reason: Pain) gabapentin 300 mg capsule 300 mg PO DAILY cyanocobalamin (vitamin B-12) 1,000 mcg tablet, sublingual 1,000 mcg sublingual FR@0900 glipizide 5 mg tablet 5 mg PO BID naproxen 500 mg tablet 500 mg PO BID PRN (Reason: Pain) Cerovite Senior 0.4 mg-300 mcg- 250 mcg tablet 1 tab PO Q OTHER DAY@1200 budesonide-formoterol [Symbicort] 160-4.5 mcg/actuation HFA aerosol inhaler 1 puff INHALATION BID albuterol sulfate 2.5 mg /3 mL (0.083 %) solution for nebulization 2.5 mg inhalation Q6H PRN (Reason: shortness of breath or wheezing) simvastatin 20 mg tablet 20 mg PO BEDTIME clopidogrel 75 mg tablet 75 mg PO DAILY spironolactone 25 mg tablet 25 mg PO DAILY isosorbide mononitrate 30 mg tablet extended release 24 hr 30 mg PO DAILY levothyroxine 88 mcg tablet 88 mcg PO DAILY@0600 metformin 1,000 mg tablet 1,000 mg PO BID gabapentin 600 mg tablet 600 mg PO BEDTIME acetaminophen 500 mg tablet 500 mg PO Q6H PRN (Reason: pain) carvedilol 25 mg tablet 12.5 mg PO BID Entresto 24-26 mg tablet 1 tab PO BID melatonin 10 mg tablet 10 mg PO BEDTIME PRN (Reason: sleep) Qty: 30 6RF furosemide 20 mg tablet 40 mg PO DAILY trazodone 50 mg tablet 25 mg PO BEDTIME PRN (Reason: Sleep)
[2023-03-15 15:43] LABS: MANUAL DIFF FLAG NO
[2023-03-15 15:46] LABS: Basophils Percent Auto 0.4 % (0-2); Eosinophils Absolute Auto 0.3 X10*3/uL (0.0-0.4); Eosinophils Percent Auto 4.1 % (0-4); Hematocrit 35.1 % (37.0-47.0); Hemoglobin 11.7 g/dl (12.0-16.0); Imm Gran Abs Auto 0.03 X10*3/uL (0.00-0.03); Imm Gran Pct Auto 0.4 % (0.0-0.4); Lymphocytes Absolute Auto 1.6 X10*3/uL (1.2-4.9); Mean Corpuscular HGB Conc 33.3 g/dl (31.0-35.0); Mean Corpuscular Hemoglobin 32.1 pg (27.0-33.0); Mean Corpuscular Volume 96.4 fL (80.0-98.0); Mean Platelet Volume 10.3 fL (9.4-12.3); Monocytes Absolute Auto 0.5 X10*3/uL (0.1-1.2); Monocytes Percent Auto 6.4 % (2-11); Neutrophils Absolute Auto 4.8 x10*3/uL (2.0-8.3); Neutrophils Percent Auto 66.7 % (45-73); Platelet Count 246 X10*3/uL (160-400); Red Blood Count 3.64 X10*6/uL (4.20-5.50); Red Cell Distribution Width 11.9 % (11.0-16.0); White Blood Count 7.2 X10*3/uL (4.8-10.8)
[2023-03-15] MEDS: 0.9 % Sodium Chloride 1,000 ML 999 ML IV ×2 (15:49→17:25)
--- NOTE | 2023-03-15 15:57 | PC.NURSE ---
Pt laying comfortably on stretcher at this time, reporting 7/10 flank pain on the left x6 days. Pt had Ct at [facility] and here. Pt also recently diagnosed with UTI and has been on abx for it.
[2023-03-15 16:04] LABS: Appearance Urine Clear; Color Urine Yellow; Glucose Urine UA >=1000 mg/dL (Negative); Leukocyte Esterase Urine Negative (Negative); Nitrite Urine Negative (Negative); UMIC TRIGGER UACC YES; Urine Blood Large (3+) (Negative); Urine Ketones Negative (Negative); Urine Protein Negative (Neg-Trace)
[2023-03-15 16:09] LABS: Bacteria Urine None Seen (None Seen); Hyaline Casts Urine 0-2 /LPF (0-2); RBC Urine >20 /HPF (0-2); Squamous Epithelial Cell Urine 0-2 /HPF (0-2); WBC Urine 0-5 /HPF (0-5)
[2023-03-15 16:10] LABS: Alanine Aminotransferase 12 U/L (0-31); Albumin Level 4.3 g/dL (3.5-5.0); Alkaline Phosphatase 72 U/L (39-117); Anion Gap 17 (12-20); Aspartate Amino Transferase 17 U/L (5-31); Bilirubin Total 0.4 mg/dL (0.0-1.0); Blood Urea Nitrogen 32 mg/dL (9-16); Calcium 9.8 mg/dL (8.4-10.2); Carbon Dioxide 23 mmol/L (22-29); Chloride 102 mmol/L (96-108); Creatinine Clr Calc Pharmacy 27.9; Estimated Glomerular Filt Rate 27; Glucose Random 254 mg/dL (60-115); Lactic Acid 2.6 mmol/L (0.5-2.0); Lipase 22 U/L (8-78); Potassium 4.7 mmol/L (3.3-5.1); Sodium 137 mmol/L (135-145); Total Protein 7.5 g/dL (6.5-8.0)
[2023-03-15 17:41] LABS: Reflex Lactate? Lactic Acid Added
--- NOTE | 2023-03-15 18:16 | P.HPHOSP_ITS ---
I agree with the findings in the SHYANNE note, assessment and plan. Will admit patient for acute pyelonephritis and HUSEYIN Continue antibiotics Follow cultures For full H&P please see below History of Present Illness Date of Service: 03/15/23 Attending physician on admission: Apple Harrell Chief Complaint: Hematuria, left flank pain Pt is a 77-year-old female with a PMH significant for?breast cancer in 1988, hpu-tyufkne-xgenfaavz diabetes type 2, CHF unspecified, CAD s/p stenting, hypotension, hypothyroidism, VAMSI on CPAP, and HLD who presents to the ED with?worsening hematuria this morning. Patient is Ghanaian-speaking only; management services technician services utilized. Patient is accompanied by her daughter who helps supplement HPI. Patient initially noticed red tinged urine 4 days prior on Friday. Patient also had ?discomfort? with urinating and went to an urgent care clinic for evaluation. Was diagnosed with a UTI and and prescribed a 3 day course of Bactrim. Patient completed her antibiotics yesterday and this morning noticed worsening blood in her urine. Patient also complaining of right flank pain. Patient also has chronic back pain. Patient continues to complain of ?uncomfortableness? when urinating. She also reports congestion and productive cough. Patient denies lower leg edema and was recently started 1 month ago on furosemide. Denies fever, chills, nausea, vomiting, abdominal pain. In the ED labs were significant for stable H&H 11.7/35.1, BUN 32, creatinine 1.83, random glucose 254, lactic acid 2.6. UA positive for large amount of blood and >[address]?of abdomen and pelvis negative for acute abdomen: found no stone or hydronephrosis, diverticulosis with no evidence for diverticulitis. Pt was treated with IVF. Pt will be admitted to the hospital for treatment and further evaluation of hematuria in the setting of UTI that failed outpatient therapy. Review of Systems Review of Systems: Hematuria Dysuria Right flank pain Productive cough Chronic back pain Denies chest pain/pressure, palpitations No fever, chills, nausea, vomiting, abdominal pain Yes all other systems are reviewed and are negative [facility] Medical History Bilateral hand numbness Breast cancer, right breast COVID-19 Daytime sleepiness GERD (gastroesophageal reflux disease) Neuropathy Numbness of left hand Sleep apnea Vitamin B12 deficiency Family History Father No problems noted. Mother No problems noted. Surgical History H/O right mastectomy History of appendectomy History of bilateral oophorectomies History of carpal tunnel release History of cholecystectomy Social History Household Members: Spouse and Family Housing: House Alcohol intake: never Patient Tobacco Use Status: Never used Tobacco Smoked in Last 30 Days: No Use of substances other than those prescribed or required for medical reasons: No Advance Directives: No Advance Directives Information Provided: Yes Nutrition Risks: No Nutritional Risk Patient : No service: No Current occupational status: retired [employer] Allergies Allergy/AdvReac Type Severity Reaction Status Date / Time Penicillins Allergy Intermediate Rash Verified 03/15/23 15:13 Active Medications: Current Medications Sodium Chloride (Ns) 1,000 mls @ 999 mls/hr IV .Q1H1M ELROY Stop: 03/15/23 18:30 Last Admin: 03/15/23 17:25 Dose: 999 mls/hr Pharmacy Consult (Consult Rx Perform Med Rec) 1 each MISCELLANE ONCE PRN PRN Reason: Consult order Home Medications Medication Instructions Recorded Confirmed Last Taken Type acetaminophen 500 mg tablet 500 mg PO Q6H PRN pain 04/26/22 03/15/23 Unknown History clopidogrel 75 mg tablet 75 mg PO DAILY@1200 04/26/22 03/15/23 03/14/23 History gabapentin 600 mg tablet 600 mg PO BEDTIME 04/26/22 03/15/23 03/14/23 History levothyroxine 88 mcg tablet 88 mcg PO DAILY@0600 04/26/22 03/15/23 03/15/23 06:00 History metformin 1,000 mg tablet 1,000 mg PO BID@1200,2100 04/26/22 03/15/23 03/14/23 History simvastatin 20 mg tablet 20 mg PO BEDTIME 04/26/22 03/15/23 03/14/23 History spironolactone 25 mg tablet 25 mg PO DAILY@1200 04/26/22 03/15/23 03/14/23 History sacubitril 24 mg-valsartan 26 mg 1 tab PO BID@1200,2100 10/08/22 03/15/23 03/14/23 History tablet (Entresto) dapagliflozin propanediol 10 mg 10 mg PO DAILY@1200 02/07/23 03/15/23 03/14/23 History tablet carvedilol 25 mg tablet 12.5 mg PO BID@1200,2100 02/25/23 03/15/23 03/14/23 History furosemide 20 mg tablet 40 mg PO DAILY 02/25/23 03/15/23 03/15/23 09:00 History trazodone 50 mg tablet 25 mg PO BEDTIME PRN Sleep 02/25/23 03/15/23 Unknown History albuterol sulfate 2.5 mg/3 mL 2.5 mg inhalation Q6H PRN 03/15/23 03/15/23 Unknown History (0.083 %) solution for nebulization shortness of breath or wheezing budesonide-formoterol HFA 160 1 puff inhalation BID 03/15/23 03/15/23 03/15/23 09:00 History mcg-4.5 mcg/actuation aerosol inhaler (Symbicort) cyanocobalamin (vitamin B-12) 1,000 mcg sublingual FR@0903/15/23 03/15/23 03/14/23 History 1,000 mcg sublingual tablet gabapentin 300 mg capsule 300 mg PO DAILY@119903/15/23 03/15/23 03/14/23 History lidocaine 5 % topical patch 1 patch topical DAILY PRN Pain 03/15/23 03/15/23 Unknown History lidocaine-prilocaine 2.5 %-2.5 % 1 appl topical BID PRN neuropathic 03/15/23 03/15/23 Unknown History topical cream pain uwcebtfx-hyl-ktttz acid 0.4 1 tab PO Q OTHER DAY@1200 03/15/23 03/15/23 03/14/23 History mg-lycopene 300 mcg-lutein 250 mcg tablet (Cerovite Senior) naproxen 500 mg tablet 500 mg PO BID PRN Pain 03/15/23 03/15/23 Unknown History pantoprazole 20 mg tablet,delayed 20 mg PO BID 03/15/23 03/15/23 03/15/23 09:00 History release Physical Exam Vital Signs and Narrative: Vital Signs: Last Vital Signs Temp 97.8 F 03/15/23 15:13 Pulse 76 03/15/23 15:13 Resp 18 03/15/23 15:13 BP 97/35 L 03/15/23 15:13 Pulse Ox 97 03/15/23 15:13 O2 Del Method Room Air 03/15/23 15:13 BMI result Body Mass Index 35.0 Constitutional: Alert, in no acute distress. Mental Status: Oriented to person, place and time. Eyes: Pupils are equal, round, and reactive to light. Ear, Nose, and Throat: Oropharynx clear, mucous membranes moist. Ears and nose without deformities. Trachea midline. Respiratory: Mild coarse expiratory breath sounds. Cardiovascular: S1, S2 regular. 3/6 murmur radiating to left carotid. Gastrointestinal: Abdomen soft, non-tender, non-distended. Normal bowel sounds. Neurologic: Cranial nerves II-XII are grossly intact bilaterally. No focal neurological deficits. Moves all extremities spontaneously. Skin: No rashes or lesions noted. Back: Right CVA tenderness Musculoskeletal: No cyanosis or clubbing. Extremities: No edema. Psychiatric: Normal mood and affect. Results Labs 03/15/23 15:34 03/15/23 15:34 Labs: Laboratory Results - last 24 hr 03/15/23 03/15/23 03/15/23 15:34 15:34 15:34 MCV 96.4 MCH 32.1 MCHC 33.3 RDW 11.9 Plt Count 246 MPV 10.3 Immature Gran % (Auto) 0.4 Neut % (Auto) 66.7 Lymph % (Auto) 22.0 [place] % (Auto) 6.4 Eos % (Auto) 4.1 H Baso % (Auto) 0.4 Lymph # (Auto) 1.6 [place] # (Auto) 0.5 Eos # (Auto) 0.3 Baso # (Auto) 0.0 Abs Immat Gran (auto) 0.03 Absolute Neuts (auto) 4.8 Absolute Nucleated RBC 0.000 Nucleated RBC % (auto) 0.0 Anion Gap 17 Estim Creat Clear Calc 27.9 Estimated GFR 27 Random Glucose 254 H Lactic Acid 2.6 H* Calcium 9.8 Total Bilirubin 0.4 AST 17 ALT 12 Alkaline Phosphatase 72 Total Protein 7.5 Albumin 4.3 Lipase 22 Urine Color Urine Appearance Urine pH Ur Specific [place] Urine Protein Urine Glucose (UA) Urine Ketones Urine Blood Urine Nitrite Ur Leukocyte Esterase Urine RBC Urine WBC Ur Squamous Epith Cells Urine Bacteria Hyaline Casts 03/15/23 15:34 MCV MCH MCHC RDW Plt Count MPV Immature Gran % (Auto) Neut % (Auto) Lymph % (Auto) [place] % (Auto) Eos % (Auto) Baso % (Auto) Lymph # (Auto) [place] # (Auto) Eos # (Auto) Baso # (Auto) Abs Immat Gran (auto) Absolute Neuts (auto) Absolute Nucleated RBC Nucleated RBC % (auto) Anion Gap Estim Creat Clear Calc Estimated GFR Random Glucose Lactic Acid Calcium Total Bilirubin AST ALT Alkaline Phosphatase Total Protein Albumin Lipase Urine Color Yellow Urine Appearance Clear Urine pH 7.0 Ur Specific [place] 1.020 Urine Protein Negative Urine Glucose (UA) >=1000 H Urine Ketones Negative Urine Blood Large (3+) H Urine Nitrite Negative Ur Leukocyte Esterase Negative Urine RBC >20 H Urine WBC 0-5 Ur Squamous Epith Cells 0-2 Urine Bacteria None Seen Hyaline Casts 0-2 Imaging Radiologist's Impressions: Impressions Abdomen/Pelvis CT 03/15/23 16:03 IMPRESSION: No stone or hydronephrosis. Diverticulosis. No evidence of diverticulitis. Fleischner guidelines were followed. Assessment and Plan (1) Acute kidney injury: Status: Acute (2) Hematuria: Status: Acute Plan Pt is a 77-year-old female with a PMH significant for?breast cancer in 1988, fiz-qxwjslw-jclddkzhl diabetes type 2, CHF unspecified, CAD s/p stenting, hypotension, hypothyroidism, VAMSI on CPAP, and HLD who presents to the ED with?worsening hematuria this morning. Patient is Ghanaian-speaking only; management services technician services utilized. Pt will be admitted to the hospital for t reatment and further evaluation of hematuria in the setting of UTI that failed outpatient therapy. Question of pyelonephritis Patient with gross hematuria, dysuria, right CVA tenderness; no fever, CT negative Pt treated for UTI outpatient with Bactrim x3 days Will start on ceftriaxone, started 03/15/2023 Urology consult HUSEYIN Creatinine 1.83 Pt received IVF in the ED Will check BNP, BMP If BNP WNL and patient's creatinine improving, will place on maintenance fluids Follow BMP Lactic acidosis, resolved Initial lactic acid 2.6 with repeat 1.2 after IVF in ED CAD Continue statin Since H&H stable will continue Plavix for now Will follow CBC closely CHF, unspecified Does not appear to be in acute exacerbation Check CXR, BNP Continue furosemide, spironolactone Hypothyroidism Continue levothyroxine Diabetic neuropathy Continue gabapentin Tce-oewmhgg-lxtviyvxr diabetes Hold metformin Will place on sliding scale insulin Chronic back pain Continue lidocaine patch Acetaminophen Full Code Attending:?Dr. Gibbons DVT Prophylaxis: Pneumatic boots d/t hematuria Pt will require a hospitalization of at least two nights for treatment with IV antibiotics and further evaluation of?hematuria in the setting of a UTI that failed outpatient therapy. Time Spent With Patient Time: Total time managing care of this patient today ____ minutes. Quality Stroke Does the patient have a stroke diagnosis?: No VTE Prior VTE?: No VTE Risk Level:: Medical - moderate - high VTE Device Contraindication: N/A - Device Ordered VTE Drug Contraindication: Treatment Not Indicated
[2023-03-15 18:25] VITALS: BP 113/47; PULSE 68; RESP 16; O2SAT 97
--- NOTE | 2023-03-15 18:25 | PHA.MEDREC ---
Pharmacy Consult ? Medication Reconciliation Pharmacy has completed the medication reconciliation. Utilized historical interpreter services. Spoke to patient's family member to confirm meds which had [facility] list with them.
[2023-03-15 18:45] LABS: ~Lactic Acid-LAB USE ONLY 1.2 mmol/L (0.5-2.0)
[2023-03-15] MEDS: Gabapentin 600 MG TABLET PO (20:50)
[2023-03-15] MEDS: Atorvastatin Calcium 10 MG TABLET PO (20:50)
[2023-03-15] MEDS: cefTRIAXone sodium 1 GM in 0.9 % Sodium Chloride 50 ML IV (20:50)
[2023-03-15] MEDS: carvediloL 12.5 MG TABLET PO (20:50)
[2023-03-15] MEDS: Sacubitril/Valsartan 24/26 1 TAB TABLET PO (20:54)
[2023-03-15 21:30] LABS: Glucose, Whole Blood 99 mg/dL (60-115)
[2023-03-15 21:42] VITALS: BP 124/51; PULSE 71; RESP 18; O2SAT 98
[2023-03-15 21:49] LABS: Anion Gap 16 (12-20); Blood Urea Nitrogen 28 mg/dL (9-16); Calcium 9.8 mg/dL (8.4-10.2); Carbon Dioxide 23 mmol/L (22-29); Chloride 105 mmol/L (96-108); Creatinine Clr Calc Pharmacy 31.7; Estimated Glomerular Filt Rate 31; Glucose Random 105 mg/dL (60-115); Potassium 4.4 mmol/L (3.3-5.1); Sodium 140 mmol/L (135-145)
[2023-03-15 21:54] LABS: B Type Natriuretic Peptide 100 pg/mL (<100)
--- NOTE | 2023-03-15 22:18 | PC.NURSE ---
pt continues to rest comfortably, no apparent distress, respirations even and unlabored, medicated per MAR. Pt given sandwhich and juni indigo for dinner. Pt offers no complaints. Continue plan of care for admission
[2023-03-15 22:48] LABS: Creatinine Urine 10.43 mg/dL
[2023-03-16] VITALS (7 sets, daily range): BP systolic 104–131; BP diastolic 38–60; PULSE 67–86; RESP 16–18; TEMP 35.8–36.4; O2SAT 94–97
[2023-03-16] MEDS: 0.9 % Sodium Chloride Flush 3 ML SYRINGE IVFLUSH ×4 (01:01→21:03)
[2023-03-16] MEDS: Acetaminophen 325 MG TABLET 650 MG PO ×2 (01:05→08:42)
[2023-03-16] MEDS: oxyCODONE HCl Immed Release 5 MG TABLET PO ×3 (02:12→13:27)
[2023-03-16] MEDS: Levothyroxine Sodium 88 MCG TABLET PO (05:42)
[2023-03-16] MEDS: Omeprazole 20 MG CAPSULE.DR PO ×2 (05:45→16:59)
--- NOTE | 2023-03-16 06:26 | PC.NURSE ---
Pt seen in ED overflow, awaiting bed assignment on [facility]. Assumed care of patient at 00:15, 03/16. Pt is Upper Sor[place] speaking only. Mechanic utilized. Pt's daughter has remained at the bedside overnight; she helps assists with making pt's needs and questions known. Pt reporting left back/flank pain that has been worse since Friday . Offered ice or heat though pt refused. Covering Dr. Gibbons notified with orders for prn oxycodone, given with +effect. Pt observed resting comfortably in bed, offered no complaints this morning. Continues on hs cpap. Bed alarm on and safety measures in place.
[2023-03-16 06:29] LABS: Anion Gap 15 (12-20); Blood Urea Nitrogen 27 mg/dL (9-16); Calcium 9.9 mg/dL (8.4-10.2); Carbon Dioxide 25 mmol/L (22-29); Chloride 104 mmol/L (96-108); Creatinine Clr Calc Pharmacy 33.2; Estimated Glomerular Filt Rate 33; Glucose Random 109 mg/dL (60-115); Potassium 4.3 mmol/L (3.3-5.1); Sodium 140 mmol/L (135-145)
[2023-03-16 06:45] LABS: Hematocrit 38.7 % (37.0-47.0); Hemoglobin 12.8 g/dl (12.0-16.0); Mean Corpuscular HGB Conc 33.1 g/dl (31.0-35.0); Mean Corpuscular Hemoglobin 32.4 pg (27.0-33.0); Mean Platelet Volume 10.5 fL (9.4-12.3); Platelet Count 254 X10*3/uL (160-400); Red Blood Count 3.95 X10*6/uL (4.20-5.50); Red Cell Distribution Width 11.9 % (11.0-16.0); White Blood Count 8.1 X10*3/uL (4.8-10.8)
[2023-03-16 07:54] LABS: Glucose, Whole Blood 207 mg/dL (60-115)
[2023-03-16] MEDS: Insulin Lispro 100 UNIT/ML 3 ML VIAL SUBCUT ×2 (08:43→21:33)
[2023-03-16 11:59] LABS: Glucose, Whole Blood 116 mg/dL (60-115)
[2023-03-16] MEDS: Multivitamin TABLET 1 TAB PO (13:20)
[2023-03-16] MEDS: Spironolactone 25 MG TABLET PO (13:20)
[2023-03-16] MEDS: Sacubitril/Valsartan 24/26 1 TAB TABLET PO ×2 (13:20→21:03)
[2023-03-16] MEDS: Clopidogrel Bisulfate 75 MG TABLET PO (13:20)
[2023-03-16] MEDS: Gabapentin 300 MG CAPSULE PO (13:20)
[2023-03-16] MEDS: carvediloL 12.5 MG TABLET PO ×2 (13:20→21:03)
[2023-03-16] MEDS: 0.9 % Sodium Chloride 1,000 ML 999 ML IV (13:37)
--- NOTE | 2023-03-16 15:53 | HO.PM.IMPN ---
Subjective Subjective Date of Service: 03/16/23 Interval History: Follow-up for patient with gross hematuria and left flank pain Patient states she is still experiencing hematuria at the same level as yesterday Reports back and left flank pain improved, well controlled with analgesics Denies abdominal Pain no fever, chills, nausea, vomiting Physical Exam Vital Signs: Vital Signs: Last Vital Signs Temp 97.6 F 03/16/23 12:11 Pulse 70 03/16/23 12:11 Resp 16 03/16/23 12:11 BP 115/57 L 03/16/23 12:11 Pulse Ox 96 03/16/23 12:11 O2 Del Method Room Air 03/16/23 12:11 BMI result Body Mass Index 35.0 General: AOx3, no acute distress Resp: CTA bilaterally CVS: S1, S2, RRR, 3/6 murmur GI: +BS, no distention, mild left-sided tenderness Skin: No rash Neuro: Cranial nerves II-XII grossly intact bilaterally. Motor grossly intact bilaterally Extremities: No edema Psych: Appropriate affect Objective Data Active Medications Acetaminophen (Acetaminophen 325 Mg Tablet) 650 mg PO Q6H PRN PRN Reason: Pain, Mild (Pain Scale 1-3) Last Admin: 03/16/23 08:42 Dose: 650 mg Documented By: JOEL Albuterol Sulfate (Albuterol Sulfate (0.083%) 2.5 Mg/3 Ml Vial.Neb) 2.5 mg INHALE Q6H PRN PRN Reason: shortness of breath or wheezing Atorvastatin Calcium (Atorvastatin Calcium 10 Mg Tablet) 10 mg PO BEDTIME [facility] Last Admin: 03/15/23 20:50 Dose: 10 mg Documented By: SIERRA Carvedilol (Carvedilol 12.5 Mg Tablet) 12.5 mg PO BID@1200,2100 ELROY; Protocol Last Admin: 03/16/23 13:20 Dose: 12.5 mg Documented By: JOEL Clopidogrel Bisulfate (Clopidogrel Bisulfate 75 Mg Tablet) 75 mg PO DAILY@1200 ELROY Last Admin: 03/16/23 13:20 Dose: 75 mg Documented By: JOEL Dextrose (Dextrose 50 % 25 Gm/50 Ml Syringe) 25 gm IVPUSH Q15M PRN; Protocol PRN Reason: per Hypoglycemia Standing Ord. Docusate Sodium (Docusate Sodium 100 Mg Capsule) 100 mg PO DAILY PRN PRN Reason: Constipation Fluticasone/Vilanterol (Fluticasone/Vilanterol 200/25 Blst.W.Dev) 1 puff INHALE RDAILY [facility] Last Admin: 03/16/23 08:01 Dose: Not Given Documented By: TAE Non-Admin Reason: pharmacy called Gabapentin (Gabapentin 300 Mg Capsule) 300 mg PO DAILY@1200 [facility] Last Admin: 03/16/23 13:20 Dose: 300 mg Documented By: JOEL Gabapentin (Gabapentin 600 Mg Tablet) 600 mg PO BEDTIME [facility] Last Admin: 03/15/23 20:50 Dose: 600 mg Documented By: SIERRA Glucose (Glucose Gel 15 Gm Gel..Gram.) 15 gm PO Q15M PRN; Protocol PRN Reason: per Hypoglycemia Standing Ord. Ceftriaxone Sodium 1 gm/ (Sodium Chloride) 50 mls @ 100 mls/hr IV Q24H [facility] Last Infusion: 03/15/23 21:29 Dose: 0 mls/hr Documented By: SIERRA Insulin Human Lispro (Insulin Lispro 100 Unit/Ml 3 Ml Vial) 0 unit SUBCUT QIDACHS [facility]; Protocol Last Admin: 03/16/23 12:34 Dose: Not Given Documented By: JOEL Non-Admin Reason: No Insulin Coverage Levothyroxine Sodium (Levothyroxine Sodium 88 Mcg Tablet) 88 mcg PO DAILY@0600 [facility] Last Admin: 03/16/23 05:42 Dose: 88 mcg Documented By: VANESA Melatonin (Melatonin 3 Mg Tablet) 9 mg PO BEDTIME PRN PRN Reason: Sleep Multivitamins/Vitamin C (Multivitamin Tablet) 1 tab PO Q2D@1200 [facility] Last Admin: 03/16/23 13:20 Dose: 1 tab Documented By: JOEL Omeprazole (Omeprazole 20 Mg Evans.) 20 mg PO BID@0630,1630 [facility] Last Admin: 03/16/23 05:45 Dose: 20 mg Documented By: VANESA Ondansetron HCl (Ondansetron Hcl 4 Mg/2 Ml Vial) 4 mg IVPUSH Q8H PRN PRN Reason: Nausea and Vomiting Oxycodone HCl (Oxycodone Hcl Immed Release 5 Mg Tablet) 5 mg PO Q4H PRN PRN Reason: Pain, Severe (Pain Scale 7-10) Last Admin: 03/16/23 13:27 Dose: 5 mg Documented By: JOEL Pharmacy Consult (Consult Rx Perform Med Rec) 1 each MISCELLANE ONCE PRN PRN Reason: Consult order Sacubitril/Valsartan (Sacubitril/Valsartan 1 Tab Tablet) 1 tab PO BID@1200,2100 ELROY; Protocol Last Admin: 03/16/23 13:20 Dose: 1 tab Documented By: JOEL Sodium Chloride (0.9 % Sodium Chloride Flush 3 Ml Syringe) 3 ml IVFLUSH QSHIFT ELROY Last Admin: 03/16/23 08:47 Dose: 3 ml Documented By: JOEL Spironolactone (Spironolactone 25 Mg Tablet) 25 mg PO DAILY@1200 ELROY; Protocol Last Admin: 03/16/23 13:20 Dose: 25 mg Documented By: JOEL Trazodone HCl (Trazodone Hcl 25 Mg Halftab) 25 mg PO BEDTIME PRN PRN Reason: Sleep Labs 03/16/23 06:00 03/16/23 06:00 Labs: Laboratory Results - last 24 hr 03/15/23 03/15/23 03/15/23 15:34 15:34 15:34 MCV MCH MCHC RDW Plt Count MPV Absolute Nucleated RBC Nucleated RBC % (auto) Anion Gap 17 Estim Creat Clear Calc 27.9 Estimated GFR 27 POC Glucose Random Glucose 254 H Lactic Acid 2.6 H* Lactic Acid F/U @ 2Hr Calcium 9.8 Total Bilirubin 0.4 AST 17 ALT 12 Alkaline Phosphatase 72 B-Natriuretic Peptide Total Protein 7.5 Albumin 4.3 Lipase 22 Urine Color Yellow Urine Appearance Clear Urine pH 7.0 Ur Specific [place] 1.020 Urine Protein Negative Urine Glucose (UA) >=1000 H Urine Ketones Negative Urine Blood Large (3+) H Urine Nitrite Negative Ur Leukocyte Esterase Negative Urine RBC >20 H Urine WBC 0-5 Ur Squamous Epith Cells 0-2 Urine Bacteria None Seen Hyaline Casts 0-2 Ur Random Sodium Urine Creatinine 03/15/23 03/15/23 03/15/23 18:29 21:18 21:18 MCV MCH MCHC RDW Plt Count MPV Absolute Nucleated RBC Nucleated RBC % (auto) Anion Gap 16 Estim Creat Clear Calc 31.7 Estimated GFR 31 POC Glucose Random Glucose 105 Lactic Acid Lactic Acid F/U @ 2Hr 1.2 Calcium 9.8 Total Bilirubin AST ALT Alkaline Phosphatase B-Natriuretic Peptide 100 Total Protein Albumin Lipase Urine Color Urine Appearance Urine pH Ur Specific [place] Urine Protein Urine Glucose (UA) Urine Ketones Urine Blood Urine Nitrite Ur Leukocyte Esterase Urine RBC Urine WBC Ur Squamous Epith Cells Urine Bacteria Hyaline Casts Ur Random Sodium Urine Creatinine 03/15/23 03/15/23 03/16/23 21:21 22:20 06:00 MCV 98.0 MCH 32.4 MCHC 33.1 RDW 11.9 Plt Count 254 MPV 10.5 Absolute Nucleated RBC 0.000 Nucleated RBC % (auto) 0.0 Anion Gap Estim Creat Clear Calc Estimated GFR POC Glucose 99 Random Glucose Lactic Acid Lactic Acid F/U @ 2Hr Calcium Total Bilirubin AST ALT Alkaline Phosphatase B-Natriuretic Peptide Total Protein Albumin Lipase Urine Color Urine Appearance Urine pH Ur Specific [place] Urine Protein Urine Glucose (UA) Urine Ketones Urine Blood Urine Nitrite Ur Leukocyte Esterase Urine RBC Urine WBC Ur Squamous Epith Cells Urine Bacteria Hyaline Casts Ur Random Sodium 104.0 Urine Creatinine 10.43 03/16/23 03/16/23 03/16/23 06:00 07:51 11:54 MCV MCH MCHC RDW Plt Count MPV Absolute Nucleated RBC Nucleated RBC % (auto) Anion Gap 15 Estim Creat Clear Calc 33.2 Estimated GFR 33 POC Glucose 207 H 116 H Random Glucose 109 Lactic Acid Lactic Acid F/U @ 2Hr Calcium 9.9 Total Bilirubin AST ALT Alkaline Phosphatase B-Natriuretic Peptide Total Protein Albumin Lipase Urine Color Urine Appearance Urine pH Ur Specific [place] Urine Protein Urine Glucose (UA) Urine Ketones Urine Blood Urine Nitrite Ur Leukocyte Esterase Urine RBC Urine WBC Ur Squamous Epith Cells Urine Bacteria Hyaline Casts Ur Random Sodium Urine Creatinine Assessment and Plan (1) Hematuria: Status: Acute (2) Acute kidney injury: Status: Acute Plan Pt is a 77-year-old female with a PMH significant for?breast cancer in 1988, lbt-zzqklnx-vsoqbsshw diabetes type 2, CHF unspecified, CAD s/p stenting, hypotension, hypothyroidism, VAMSI on CPAP, and HLD who presented to the ED with?worsening hematuria. Patient is Lithuanian-speaking only; certified ophthalmic technician services utilized.? Pt will be admitted to the hospital for treatment and further evaluation of hematuria in the setting of UTI that failed outpatient therapy. Gross hematuria with question of pyelonephritis Patient with gross hematuria, dysuria, right CVA tenderness; no fever, CT negative Pt treated for UTI outpatient with Bactrim x3 days Will start on ceftriaxone, started 03/15/2023 Urology consult HUSEYIN Creatinine 1.83 at time of presentation, improved to 1.54 today, stil above baseline of 1.15 Pt received IVF in the ED Will give another 1L of IVF Hold furosemide, spironolactone Follow BMP Lactic acidosis, resolved Initial lactic acid 2.6 with repeat 1.2 after IVF in ED CAD Continue statin Since H&H stable will continue Plavix for now Will follow CBC closely CHF, unspecified Does not appear to be in acute exacerbation BNP WNL, CXR negative for pleural effusions Hold furosemide, spironolactone for now d/t HUSEYIN Hypothyroidism Continue levothyroxine Diabetic neuropathy Continue gabapentin Sdd-xnoylau-cntqqvlit diabetes Hold metformin Will place on sliding scale insulin Chronic back pain Continue lidocaine patch Acetaminophen Full Code Attending:?Dr. Medina DVT Prophylaxis: Pneumatic boots d/t hematuria Pt requires continued hospitalization for treatment of UTI that failed outpatient therapy with IV antibiotics and further evaluation of?hematuria. Time Spent With Patient Time: Total time managing care of this patient today ____ minutes. Quality Stroke Does the patient have a stroke diagnosis?: No VTE Prior VTE?: No VTE Risk Level:: Medical - moderate - high VTE Device Contraindication: N/A - Device Ordered VTE Drug Contraindication: Treatment Not Indicated
[2023-03-16 16:12] LABS: Glucose, Whole Blood 147 mg/dL (60-115)
[2023-03-16] MEDS: cefTRIAXone sodium 1 GM in 0.9 % Sodium Chloride 50 ML IV (21:03)
[2023-03-16] MEDS: Atorvastatin Calcium 10 MG TABLET PO (21:03)
[2023-03-16] MEDS: Gabapentin 600 MG TABLET PO (21:08)
[2023-03-16 21:14] LABS: Glucose, Whole Blood 195 mg/dL (60-115)
[2023-03-17 04:00] VITALS: BP 122/58; PULSE 66; RESP 19; TEMP 36.4; O2SAT 94
[2023-03-17] MEDS: Omeprazole 20 MG CAPSULE.DR PO (05:22)
[2023-03-17] MEDS: Levothyroxine Sodium 88 MCG TABLET PO (05:22)
[2023-03-17] MEDS: oxyCODONE HCl Immed Release 5 MG TABLET PO (06:36)
[2023-03-17 07:26] VITALS: BP 114/55; PULSE 69; RESP 18; TEMP 36.3; O2SAT 94
[2023-03-17 07:38] LABS: Glucose, Whole Blood 164 mg/dL (60-115)
[2023-03-17] MEDS: Insulin Lispro 100 UNIT/ML 3 ML VIAL SUBCUT ×2 (07:48→11:55)
[2023-03-17] MEDS: 0.9 % Sodium Chloride Flush 3 ML SYRINGE IVFLUSH (07:49)
--- NOTE | 2023-03-17 10:12 | PM.CNNEP ---
History of Present Illness Reason for Consult Consult date: 03/17/23 Reason for consult: HUSEYIN Chief Complaint Chief complaint: Hematuria History of Present Illness Narrative: ?77-year-old female with aes-cdcyaop-rzvloukyl diabetes as well as CHF presented to the ED with?worsening hematuria. .? Patient was seen in an urgent care clinic & was diagnosed with a UTI and and prescribed a 3 day course of Bactrim.? Patient completed her antibiotics but noticed worsening blood in her urine.? Patient also complaining of right flank pain. Patient denies lower leg edema and was recently started 1 month ago on furosemide.? Denies fever, chills, nausea, vomiting, abdominal pain. In the ED labs were significant for stable H&H 11.7/35.1, BUN 32, creatinine 1.83, random glucose 254, lactic acid 2.6.? UA positive for large amount of blood and >[address]?of abdomen and pelvis negative for acute abdomen: found no stone or hydronephrosis, She was admitted for further management. Nephrology has been consulted to assist in her clinical care during her current hospital stay. Review of Systems Review of Systems Yes all other systems are reviewed and are negative [facility] Past Medical History Medical History Bilateral hand numbness Breast cancer, right breast COVID-19 Daytime sleepiness GERD (gastroesophageal reflux disease) Neuropathy Numbness of left hand Sleep apnea Vitamin B12 deficiency Family History Family History Father No problems noted. Mother No problems noted. Surgical History Surgical History H/O right mastectomy History of appendectomy History of bilateral oophorectomies History of carpal tunnel release History of cholecystectomy Social History Social History Household Members: Family Housing: House Do you presently have visiting nurse or other home services: No Alcohol intake: never Patient Tobacco Use Status: Never used Tobacco Smoked in Last 30 Days: No Use of substances other than those prescribed or required for medical reasons: No Currently Displaying Signs/Symptoms of Drug Intoxication Withdrawal: No Have you been hit, kicked, punched, or otherwise hurt by someone within the past year? If so, by whom?: No Do you feel safe in your current relationship?: No Current Relationship Is there a partner from a previous relationship who is making you feel unsafe now?: No Are you made to feel afraid or neglected: No Advance Directives: No Advance Directives Information Provided: Yes Do you have thoughts of harming others: None Do you have a plan to hurt others: No Plan Recently lost weight without trying: No Nutrition Risks: No Nutritional Risk Patient : No : No Poor oral hygiene: No service: No Current occupational status: retired Meds Allergies Allergy/AdvReac Type Severity Reaction Status Date / Time Penicillins Allergy Intermediate Rash Verified 03/15/23 15:13 Active Medications: Current Medications Acetaminophen (Acetaminophen 325 Mg Tablet) 650 mg PO Q6H PRN PRN Reason: Pain, Mild (Pain Scale 1-3) Last Admin: 03/16/23 08:42 Dose: 650 mg Albuterol Sulfate (Albuterol Sulfate (0.083%) 2.5 Mg/3 Ml Vial.Neb) 2.5 mg INHALE Q6H PRN PRN Reason: shortness of breath or wheezing Atorvastatin Calcium (Atorvastatin Calcium 10 Mg Tablet) 10 mg PO BEDTIME [facility] Last Admin: 03/16/23 21:03 Dose: 10 mg Carvedilol (Carvedilol 12.5 Mg Tablet) 12.5 mg PO BID@1200,2100 [facility]; Protocol Last Admin: 03/16/23 21:03 Dose: 12.5 mg Clopidogrel Bisulfate (Clopidogrel Bisulfate 75 Mg Tablet) 75 mg PO DAILY@1200 [facility] Last Admin: 03/16/23 13:20 Dose: 75 mg Dextrose (Dextrose 50 % 25 Gm/50 Ml Syringe) 25 gm IVPUSH Q15M PRN; Protocol PRN Reason: per Hypoglycemia Standing Ord. Docusate Sodium (Docusate Sodium 100 Mg Capsule) 100 mg PO DAILY PRN PRN Reason: Constipation Fluticasone/Vilanterol (Fluticasone/Vilanterol 200/25 Blst.W.Dev) 1 puff INHALE RDAILY [facility] Last Admin: 03/16/23 08:01 Dose: Not Given Gabapentin (Gabapentin 300 Mg Capsule) 300 mg PO DAILY@1200 [facility] Last Admin: 03/16/23 13:20 Dose: 300 mg Gabapentin (Gabapentin 600 Mg Tablet) 600 mg PO BEDTIME [facility] Last Admin: 03/16/23 21:08 Dose: 600 mg Glucose (Glucose Gel 15 Gm Gel..Gram.) 15 gm PO Q15M PRN; Protocol PRN Reason: per Hypoglycemia Standing Ord. Ceftriaxone Sodium 1 gm/ (Sodium Chloride) 50 mls @ 100 mls/hr IV Q24H [facility] Last Infusion: 03/16/23 21:38 Dose: Infused Insulin Human Lispro (Insulin Lispro 100 Unit/Ml 3 Ml Vial) 0 unit SUBCUT QIDACHS [facility]; Protocol Last Admin: 03/17/23 07:48 Dose: 2 unit Levothyroxine Sodium (Levothyroxine Sodium 88 Mcg Tablet) 88 mcg PO DAILY@0600 [facility] Last Admin: 03/17/23 05:22 Dose: 88 mcg Melatonin (Melatonin 3 Mg Tablet) 9 mg PO BEDTIME PRN PRN Reason: Sleep Multivitamins/Vitamin C (Multivitamin Tablet) 1 tab PO Q2D@1200 [facility] Last Admin: 03/16/23 13:20 Dose: 1 tab Omeprazole (Omeprazole 20 Mg Capsule.) 20 mg PO BID@0630,1630 [facility] Last Admin: 03/17/23 05:22 Dose: 20 mg Ondansetron HCl (Ondansetron Hcl 4 Mg/2 Ml Vial) 4 mg IVPUSH Q8H PRN PRN Reason: Nausea and Vomiting Oxycodone HCl (Oxycodone Hcl Immed Release 5 Mg Tablet) 5 mg PO Q4H PRN PRN Reason: Pain, Severe (Pain Scale 7-10) Last Admin: 03/17/23 06:36 Dose: 5 mg Pharmacy Consult (Consult Rx Perform Med Rec) 1 each MISCELLANE ONCE PRN PRN Reason: Consult order Sacubitril/Valsartan (Sacubitril/Valsartan 1 Tab Tablet) 1 tab PO BID@1200,2100 [facility]; Protocol Last Admin: 03/16/23 21:03 Dose: 1 tab Sodium Chloride (0.9 % Sodium Chloride Flush 3 Ml Syringe) 3 ml IVFLUSH QSHIFT [facility] Last Admin: 03/17/23 07:49 Dose: 3 ml Trazodone HCl (Trazodone Hcl 25 Mg Halftab) 25 mg PO BEDTIME PRN PRN Reason: Sleep Home Medications Medication Instructions Recorded Confirmed Last Taken Type acetaminophen 500 mg tablet 500 mg PO Q6H PRN pain 04/26/22 03/15/23 Unknown History clopidogrel 75 mg tablet 75 mg PO DAILY@1200 04/26/22 03/15/23 03/14/23 History gabapentin 600 mg tablet 600 mg PO BEDTIME 04/26/22 03/15/23 03/14/23 History levothyroxine 88 mcg tablet 88 mcg PO DAILY@0600 04/26/22 03/15/23 03/15/23 06:00 History metformin 1,000 mg tablet 1,000 mg PO BID@1200,2100 04/26/22 03/15/23 03/14/23 History simvastatin 20 mg tablet 20 mg PO BEDTIME 04/26/22 03/15/23 03/14/23 History spironolactone 25 mg tablet 25 mg PO DAILY@1200 04/26/22 03/15/23 03/14/23 History sacubitril 24 mg-valsartan 26 mg 1 tab PO BID@1200,2100 10/08/22 03/15/23 03/14/23 History tablet (Entresto) dapagliflozin propanediol 10 mg 10 mg PO DAILY@1200 02/07/23 03/15/23 03/14/23 History tablet carvedilol 25 mg tablet 12.5 mg PO BID@1200,2100 02/25/23 03/15/23 03/14/23 History furosemide 20 mg tablet 40 mg PO DAILY 02/25/23 03/15/23 03/15/23 09:00 History trazodone 50 mg tablet 25 mg PO BEDTIME PRN Sleep 02/25/23 03/15/23 Unknown History albuterol sulfate 2.5 mg/3 mL 2.5 mg inhalation Q6H PRN 03/15/23 03/15/23 Unknown History (0.083 %) solution for nebulization shortness of breath or wheezing budesonide-formoterol HFA 160 1 puff inhalation BID 03/15/23 03/15/23 03/15/23 09:00 History mcg-4.5 mcg/actuation aerosol inhaler (Symbicort) cyanocobalamin (vitamin B-12) 1,000 mcg sublingual FR@0903/15/23 03/15/23 03/14/23 History 1,000 mcg sublingual tablet gabapentin 300 mg capsule 300 mg PO DAILY@1200 03/15/23 03/15/23 03/14/23 History lidocaine 5 % topical patch 1 patch topical DAILY PRN Pain 03/15/23 03/15/23 Unknown History lidocaine-prilocaine 2.5 %-2.5 % 1 appl topical BID PRN neuropathic 03/15/23 03/15/23 Unknown History topical cream pain fvjwvcrh-thm-sywvp acid 0.4 1 tab PO Q OTHER DAY@1200 03/15/23 03/15/23 03/14/23 History mg-lycopene 300 mcg-lutein 250 mcg tablet (Cerovite Senior) naproxen 500 mg tablet 500 mg PO BID PRN Pain 03/15/23 03/15/23 Unknown History pantoprazole 20 mg tablet,delayed 20 mg PO BID 03/15/23 03/15/23 03/15/23 09:00 History release Physical Exam Vital Signs: Last Vital Signs Temp 97.3 F 03/17/23 07:26 Pulse 69 03/17/23 07:26 Resp 18 03/17/23 07:26 BP 114/55 L 03/17/23 07:26 Pulse Ox 94 03/17/23 07:26 O2 Del Method Room Air 03/17/23 07:26 BMI result Body Mass Index 35.0 Const General: comfortable Orientation/consciousness: patient oriented x3 Eyes EOM: EOMs intact bilaterally Neck Neck: Yes no JVD Resp Auscultation: diminished lung sounds Cardio Rate: regular rate Heart sounds: Murmur heart sound present GI Palpation (GI): Soft to palpation Skin General skin exam: no rashes or lesions noted Neuro General: patient oriented x3 and moves all extremities Results Lab Results 03/16/23 06:00 03/16/23 06:00 Lab results: Chemistry 03/15/23 03/15/23 03/16/23 15:34 21:18 06:00 Sodium 137 140 140 Potassium 4.7 4.4 4.3 Carbon Dioxide 23 23 25 BUN 32 H 28 H 27 H Creatinine 1.83 H 1.61 H 1.54 H Calcium 9.8 9.8 9.9 Hematology 03/15/23 03/16/23 15:34 06:00 WBC 7.2 8.1 Hgb 11.7 L 12.8 Plt Count 246 254 Urinalysis 03/15/23 15:34 Urine Color Yellow Urine Appearance Clear Urine pH 7.0 Ur Specific [place] 1.020 Urine Protein Negative Urine Glucose (UA) >=1000 H Urine Ketones Negative Urine Blood Large (3+) H Urine Nitrite Negative Ur Leukocyte Esterase Negative Urine RBC >20 H Urine WBC 0-5 Ur Squamous Epith Cells 0-2 Hyaline Casts 0-2 Urine Studies 03/15/23 22:20 Urine Creatinine 10.43 Assessment and Plan (1) Acute kidney injury: Status: Acute Time Spent With Patient Time: HUSEYIN due to multifactorial etiology Has a low flow state due to Also had been on Bactrim If creatinine rises, needs to hold Entresto Urology needs to see her given hematuria ? Needs Cystoscopy; C/W rest of current management Could follow up with me in office in 1 month with me when D/[place] Procedures Date of Service Date of Service: 03/17/23
[2023-03-17] MEDS: Fluticasone/Vilanterol 200/25 BLST.W.DEV 1 PUFF INHALE (10:18)
[2023-03-17 10:19] VITALS: PULSE 66; RESP 18; O2SAT 94
[2023-03-17 11:45] LABS: Glucose, Whole Blood 208 mg/dL (60-115)
[2023-03-17] MEDS: Gabapentin 300 MG CAPSULE PO (11:52)
[2023-03-17] MEDS: Clopidogrel Bisulfate 75 MG TABLET PO (11:52)
[2023-03-17] MEDS: carvediloL 12.5 MG TABLET PO (11:52)
[2023-03-17] MEDS: Sacubitril/Valsartan 24/26 1 TAB TABLET PO (11:52)
--- NOTE | 2023-03-17 13:33 | P.CNUR_ITS ---
History of Present Illness Consult details Consult date: 03/17/23 Narrative: 77 year old female with a history of breast cancer presenting to the emergency department with left sided flank pain and blood in her urine. Patient states that 3 days ago she was diagnosed with a UTI at a walk in clinic and was prescribed bactrim. Patient states that she is now passing blood in her urine and having left flank pain. Patient denies any dizziness, lightheadedness, vomiting, fever, chills, chest pain, difficulty breathing, shortness of breath, recent trauma or falls. 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 Called to evaluate due to hematuria. The pt is on plavix. Ass: Hemorrhagic Cystitis. Ascending UTI CTAP - No hydro or nephrolithiasis Review of Systems Review of Systems: 10 point ROS negative other than stated in HPI [facility] Past Medical History Medical History Bilateral hand numbness Breast cancer, right breast COVID-19 Daytime sleepiness GERD (gastroesophageal reflux disease) Neuropathy Numbness of left hand Sleep apnea Vitamin B12 deficiency Family History Family History Father No problems noted. Mother No problems noted. Surgical History Surgical History H/O right mastectomy History of appendectomy History of bilateral oophorectomies History of carpal tunnel release History of cholecystectomy Social History Social History Household Members: Family Housing: House Do you presently have visiting nurse or other home services: No Alcohol intake: never Patient Tobacco Use Status: Never used Tobacco service: No Current occupational status: retired Meds Allergies Allergy/AdvReac Type Severity Reaction Status Date / Time Penicillins Allergy Intermediate Rash Verified 03/15/23 15:13 Active Medications: Current Medications Acetaminophen (Acetaminophen 325 Mg Tablet) 650 mg PO Q6H PRN PRN Reason: Pain, Mild (Pain Scale 1-3) Last Admin: 03/16/23 08:42 Dose: 650 mg Albuterol Sulfate (Albuterol Sulfate (0.083%) 2.5 Mg/3 Ml Vial.Neb) 2.5 mg INHALE Q6H PRN PRN Reason: shortness of breath or wheezing Atorvastatin Calcium (Atorvastatin Calcium 10 Mg Tablet) 10 mg PO BEDTIME [facility] Last Admin: 03/16/23 21:03 Dose: 10 mg Carvedilol (Carvedilol 12.5 Mg Tablet) 12.5 mg PO BID@1200,2100 [facility]; Protocol Last Admin: 03/17/23 11:52 Dose: 12.5 mg Clopidogrel Bisulfate (Clopidogrel Bisulfate 75 Mg Tablet) 75 mg PO DAILY@1200 [facility] Last Admin: 03/17/23 11:52 Dose: 75 mg Dextrose (Dextrose 50 % 25 Gm/50 Ml Syringe) 25 gm IVPUSH Q15M PRN; Protocol PRN Reason: per Hypoglycemia Standing Ord. Docusate Sodium (Docusate Sodium 100 Mg Capsule) 100 mg PO DAILY PRN PRN Reason: Constipation Fluticasone/Vilanterol (Fluticasone/Vilanterol 200/25 Blst.W.Dev) 1 puff INHALE RDAILY [facility] Last Admin: 03/17/23 10:18 Dose: 1 puff Gabapentin (Gabapentin 300 Mg Capsule) 300 mg PO DAILY@1200 [facility] Last Admin: 03/17/23 11:52 Dose: 300 mg Gabapentin (Gabapentin 600 Mg Tablet) 600 mg PO BEDTIME [facility] Last Admin: 03/16/23 21:08 Dose: 600 mg Glucose (Glucose Gel 15 Gm Gel..Gram.) 15 gm PO Q15M PRN; Protocol PRN Reason: per Hypoglycemia Standing Ord. Ceftriaxone Sodium 1 gm/ (Sodium Chloride) 50 mls @ 100 mls/hr IV Q24H [facility] Last Infusion: 03/16/23 21:38 Dose: Infused Insulin Human Lispro (Insulin Lispro 100 Unit/Ml 3 Ml Vial) 0 unit SUBCUT QIDACHS [facility]; Protocol Last Admin: 03/17/23 11:55 Dose: 1 unit Levothyroxine Sodium (Levothyroxine Sodium 88 Mcg Tablet) 88 mcg PO DAILY@0600 [facility] Last Admin: 03/17/23 05:22 Dose: 88 mcg Melatonin (Melatonin 3 Mg Tablet) 9 mg PO BEDTIME PRN PRN Reason: Sleep Multivitamins/Vitamin C (Multivitamin Tablet) 1 tab PO Q2D@1200 [facility] Last Admin: 03/16/23 13:20 Dose: 1 tab Omeprazole (Omeprazole 20 Mg Capsule.Dr) 20 mg PO BID@0630,1630 [facility] Last Admin: 03/17/23 05:22 Dose: 20 mg Ondansetron HCl (Ondansetron Hcl 4 Mg/2 Ml Vial) 4 mg IVPUSH Q8H PRN PRN Reason: Nausea and Vomiting Oxycodone HCl (Oxycodone Hcl Immed Release 5 Mg Tablet) 5 mg PO Q4H PRN PRN Reason: Pain, Severe (Pain Scale 7-10) Last Admin: 03/17/23 06:36 Dose: 5 mg Pharmacy Consult (Consult Rx Perform Med Rec) 1 each MISCELLANE ONCE PRN PRN Reason: Consult order Sacubitril/Valsartan (Sacubitril/Valsartan 1 Tab Tablet) 1 tab PO BID@1200,2100 [facility]; Protocol Last Admin: 03/17/23 11:52 Dose: 1 tab Sodium Chloride (0.9 % Sodium Chloride Flush 3 Ml Syringe) 3 ml IVFLUSH [facility] Last Admin: 03/17/23 07:49 Dose: 3 ml Trazodone HCl (Trazodone Hcl 25 Mg Halftab) 25 mg PO BEDTIME PRN PRN Reason: Sleep Home Medications Medication Instructions Recorded Confirmed Last Taken Type acetaminophen 500 mg tablet 500 mg PO Q6H PRN pain 04/26/22 03/15/23 Unknown History clopidogrel 75 mg tablet 75 mg PO DAILY@1200 04/26/22 03/15/23 03/14/23 History gabapentin 600 mg tablet 600 mg PO BEDTIME 04/26/22 03/15/23 03/14/23 History levothyroxine 88 mcg tablet 88 mcg PO DAILY@0600 04/26/22 03/15/23 03/15/23 06:00 History metformin 1,000 mg tablet 1,000 mg PO BID@1200,2100 04/26/22 03/15/23 03/14/23 History simvastatin 20 mg tablet 20 mg PO BEDTIME 04/26/22 03/15/23 03/14/23 History spironolactone 25 mg tablet 25 mg PO DAILY@1200 04/26/22 03/15/23 03/14/23 History sacubitril 24 mg-valsartan 26 mg 1 tab PO BID@1200,2100 10/08/22 03/15/23 03/14/23 History tablet (Entresto) dapagliflozin propanediol 10 mg 10 mg PO DAILY@1200 07/07/23 08/12/23 08/11/23 History tablet carvedilol 25 mg tablet 12.5 mg PO BID@1200,2100 02/25/23 03/15/23 03/14/23 History furosemide 20 mg tablet 40 mg PO DAILY 02/25/23 03/15/23 03/15/23 09:00 History trazodone 50 mg tablet 25 mg PO BEDTIME PRN Sleep 02/25/23 03/15/23 Unknown History albuterol sulfate 2.5 mg/3 mL 2.5 mg inhalation Q6H PRN 03/15/23 03/15/23 Unknown History (0.083 %) solution for nebulization shortness of breath or wheezing budesonide-formoterol HFA 160 1 puff inhalation BID 03/15/23 03/15/23 03/15/23 09:00 History mcg-4.5 mcg/actuation aerosol inhaler (Symbicort) cyanocobalamin (vitamin B-12) 1,000 mcg sublingual FR@0903/15/23 03/15/23 03/14/23 History 1,000 mcg sublingual tablet gabapentin 300 mg capsule 300 mg PO DAILY@119903/15/23 03/15/23 03/14/23 History lidocaine 5 % topical patch 1 patch topical DAILY PRN Pain 03/15/23 03/15/23 Un known History lidocaine-prilocaine 2.5 %-2.5 % 1 appl topical BID PRN neuropathic 03/15/23 03/15/23 Unknown History topical cream pain grwcndpz-apq-oyucf acid 0.4 1 tab PO Q OTHER DAY@1200 03/15/23 03/15/23 03/14/23 History mg-lycopene 300 mcg-lutein 250 mcg tablet (Cerovite Senior) naproxen 500 mg tablet 500 mg PO BID PRN Pain 03/15/23 03/15/23 Unknown History pantoprazole 20 mg tablet,delayed 20 mg PO BID 03/15/23 03/15/23 03/15/23 09:00 History release Physical Exam Vital Signs: Vital Signs: Last Vital Signs Temp 97.3 F 03/17/23 07:26 Pulse 66 03/17/23 10:19 Resp 18 03/17/23 10:19 BP 114/55 L 03/17/23 07:26 Pulse Ox 94 03/17/23 07:26 O2 Del Method Room Air 03/17/23 07:26 BMI result Body Mass Index 35.0 Const: General: cooperative, healthy appearing and no acute distress Orientation/consciousness: patient oriented x3 HEENT: Head: Yes normal to inspection, Yes normocephalic and Yes atraumatic Eyes: Conjunctivae: conjunctivae normal Neck: Neck: Yes normal visual inspection and Yes trachea midline Chest: Chest palpation & inspection: normal inspection of the chest Resp: Effort & Inspection: normal respiratory effort Cardio: Rate: regular rate GI: Inspection: Yes normal to inspection Palpation (GI): Soft to palpation : General: Yes CVA tenderness (left, mild) Back/Spine/Pelvis: Back: CVA tenderness (left, mild) Skin: General skin exam: no rashes or lesions noted Neuro: General: patient oriented x3 Extrem: General: No edema Psych: Appearance: grossly normal Results Labs 03/16/23 06:00 03/16/23 06:00 Labs: Abnormal lab results 03/16/23 03/16/23 03/17/23 Range/Units 16:09 21:08 07:24 POC Glucose 147 H 195 H 164 H (60-115) mg/dL 03/17/23 Range/Units 11:39 POC Glucose 208 H (60-115) mg/dL Urine 03/15/23 Range/Units 15:34 Urine Color Yellow Urine Appearance Clear Urine pH 7.0 (5.0-9.0) Ur Specific [place] 1.020 (1.005-1.025) Urine Protein Negative (Neg-Trace) mg/dL Urine Glucose (UA) >=1000 H (Negative) mg/dL Collected: 03/11/23160 Status: COMP Req#: [id number] Received: 03/11/23 Source: [facility] Sp Desc: Urine alexandra Subm Dr: ELENA [employer] Ordered: Urine Culture Procedure Result Verified Site Urine Culture Final 03/13/23 Organism 1 Escherichia coli Quant 50,000 to 100,000 cfu/mL E coli M.I.C. RX --------- --- Ampicillin 8 S Ceftriaxone <=0.25 S Gentamicin <=1 S Levofloxacin >=8 R Nitrofurantoin <=16 S Trimethoprim/Sulfamethoxazole <=[address] scan report/results: report reviewed and image reviewed CT scan - pelvis: report reviewed and image reviewed Additional studies: Date of Service: 03/15/23 EXAMINATION: CT ABDOMEN AND PELVIS WITHOUT CONTRAST? CLINICAL INFORMATION: Flank pain? COMPARISON: Previous CT of the abdomen and pelvis 03/12/2023 TECHNIQUE: Multidetector volumetric imaging was performed from the superior aspect of the liver through the pubic symphysis. Sagittal and coronal reformatted images were obtained on the technologist's workstation.? This CT examination was performed using dose optimization techniques as appropriate, variously including the following: *Automated exposure control *Adjustment of mA and/or kV according to patient size (this includes techniques or standardized protocols for targeted exams where dose is matched to indication/reason for exam; i.e. extremities or head) *Use of iterative reconstruction technique DLP: 753 mGy-cm FINDINGS: LUNG BASES: The visualized lung bases are clear. Right breast implant. Aortic valve and coronary artery calcification. LIVER, GALLBLADDER, AND BILIARY TREE: The liver is normal in size, shape, and attenuation. No focal hepatic lesion or biliary ductal dilatation is present. The gallbladder has been removed. PANCREAS: Unremarkable.? SPLEEN: Unremarkable.? ADRENAL GLANDS: Unremarkable.? KIDNEYS AND URETERS: The kidneys are normal in size, shape, and attenuation. No hydronephrosis, hydroureter, or calculi seen. No perinephric stranding. ? BLADDER: Unremarkable.? GASTROINTESTINAL TRACT: Diverticulosis of the colon. The small and large bowel are unremarkable. The appendix is not seen and may have been removed..? ABDOMINAL WALL: Diastasis of the rectus muscles and small umbilical hernia containing fat.? LYMPH NODES: Normal. VASCULAR: Unremarkable. PELVIC VISCERA: The uterus appears to have been removed. No pelvic mass.? OSSEOUS STRUCTURES: Degenerative changes of the spine and left hip joint.? IMPRESSION: No stone or hydronephrosis. Diverticulosis. No evidence of diverticulitis.? Assessment and Plan (1) Hematuria: Status: Acute (2) Cystitis: Status: Acute (3) Acute kidney injury: Status: Acute (4) UTI (urinary tract infection): Status: Acute (5) Pyelonephritis of left kidney: Status: Acute Plan When pt stable okay to Discharge on Ceftin 500 mg bid for 10 days Follow up with me as outpatient Out patient cysto Time Spent With Patient Time: Total time managing care of this patient today ____ minutes. Procedures Date of Service Date of Service: 03/18/23
--- NOTE | 2023-03-17 14:50 | PM.DS ---
DS: Providers Provider Date of Service: 03/17/23 Date of admission: 03/15/23 20:01 Primary care physician: BE Chavez Consults: 03/15/23 20:05 Consult to Urology Routine Consulting Provider: Lucy Gilbert Reason for consultation: Gross hematuria DS: Diagnosis Discharge Diagnosis (1) Hematuria: Status: Acute (2) Cystitis: Status: Acute (3) Acute kidney injury: Status: Acute (4) UTI (urinary tract infection): Status: Acute (5) Pyelonephritis of left kidney: Status: Acute DS: Summary Hospital Course Hospital Course: HP as per admitting provider . Pt is a 77-year-old female with a PMH significant for?breast cancer in 1988, oey-vrapokv-wzwafnqps diabetes type 2, CHF unspecified, CAD s/p stenting, hypotension, hypothyroidism, VAMSI on CPAP, and HLD who presents to the ED with?worsening hematuria this morning.? Patient is [place]er-speaking only; psych specialist services utilized.? Patient is accompanied by her daughter who helps supplement HPI.? Patient initially noticed red tinged urine 4 days prior on Friday.? Patient also had ?discomfort? with urinating and went to an urgent care clinic for evaluation.? Was diagnosed with a UTI and and prescribed a 3 day course of Bactrim.? Patient completed her antibiotics yesterday and this morning noticed worsening blood in her urine.? Patient also complaining of right flank pain.? Patient also has chronic back pain.? Patient continues to complain of ?uncomfortableness? when urinating.? She also reports congestion and productive cough.? Patient denies lower leg edema and was recently started 1 month ago on furosemide.? Denies fever, chills, nausea, vomiting, abdominal pain. In the ED labs were significant for stable H&H 11.7/35.1, BUN 32, creatinine 1.83, random glucose 254, lactic acid 2.6.? UA positive for large amount of blood and >[address]?of abdomen and pelvis negative for acute abdomen: found no stone or hydronephrosis, diverticulosis with no evidence for diverticulitis. Pt was treated with IVF.? Pt will be admitted to the hospital for treatment and further evaluation of hematuria in the setting of UTI that failed outpatient therapy. 69-year-old woman treated for hematuria secondary to pyelonephritis with HUSEYIN. Patient initially had gross hematuria with dysuria and right CVA tenderness. She was treated outpatient with Bactrim for 3 days which probably made her kidney function worse an IVC did not treat the infection. She was started on ceftriaxone and treated with that over the last several days. She was seen and evaluated by Urology with no recommendation for any further workup at this time. She has very mildly pink tinged urine which is a significant improvement. She will continue 4 more days Ceftin. She can follow up with Nephrology outpatient regarding the HUSEYIN on CKD stage 3. She was given IV fluids and this did help improve the creatinine. Her furosemide and spironolactone were placed on hold. History of coronary artery disease. Continue statin and Plavix Congestive heart failure. Unspecified. No acute exacerbation furosemide and spironolactone on hold due to HUSEYIN. Check creatinine in 2-3 days Hypothyroidism. Continue levothyroxine Diabetic neuropathy. Continue gabapentin Diabetes mellitus type 2. Continue home medication Time Spent with Patient Time attestation: Total time managing care of this patient today ____ minutes. Discharge coordination time: Greater than 30 minutes Quality: Safe Use of Opioids Does Pt have an Active Cancer Diagnosis on the Problem List?: No Quality: Stroke Does the patient have a stroke diagnosis?: No Physical Exam Vital Signs: Vital Signs: Last Vital Signs Temp 97.3 F 03/17/23 07:26 Pulse 66 03/17/23 10:19 Resp 18 03/17/23 10:19 BP 114/55 L 03/17/23 07:26 Pulse Ox 94 03/17/23 07:26 O2 Del Method Room Air 03/17/23 07:26 BMI result Body Mass Index 35.0 Appearing in no acute distress head is normocephalic atraumatic eyes pupils are PERRLA sclera is anicteric mouth throat mucous membranes are intact and moist neck is supple no lymphadenopathy, no JVD noted lung sounds are clear to auscultation heart regular rate rhythm, clear S1, S2 positive bowel sounds, abdomen is soft, nontender neuro patient is alert x3, no focal deficits DS: Data Data Completed and Pending Labs on day of discharge: Laboratory Results - last 24 hr 03/16/23 03/16/23 03/17/23 16:09 21:08 07:24 POC Glucose 147 H 195 H 164 H 03/17/23 11:39 POC Glucose 208 H Preliminary micro results at discharge 03/15/23 16:06 Blood Culture - Preliminary Blood - Venous No growth after 24 hours. 03/15/23 15:34 Blood Culture - Preliminary Blood - Venous No growth after 24 hours. Discharge Plan Discharge Anticipated Discharge Date/Time: 03/17/23 14:27 Patient Disposition: Home, Self-Care Discharge Diagnosis: Pyelonephritis Hematuria HUSEYIN Referrals: José Miguel Mojica MD [Physician] - 1 Week Lupe Moralez FNP [Primary Care Provider] - 1 Week Discharge Medications: New cefuroxime axetil 250 mg tablet 250 mg PO BID Qty: 8 0RF Continued dapagliflozin propanediol 10 mg Tablet 10 mg PO DAILY@1200 (DME) bra, mastectomy Crystals Qty: 1 0RF Rx Instructions: As Directed lidocaine-prilocaine 2.5-2.5 % cream 1 appl topical BID PRN (Reason: neuropathic pain) pantoprazole 20 mg tablet,delayed release (DR/EC) 20 mg PO BID lidocaine 5 % adhesive patch,medicated 1 patch topical DAILY PRN (Reason: Pain) gabapentin 300 mg capsule 300 mg PO DAILY@1200 cyanocobalamin (vitamin B-12) 1,000 mcg tablet, sublingual 1,000 mcg sublingual FR@0900 naproxen 500 mg tablet 500 mg PO BID PRN (Reason: Pain) Cerovite Senior 0.4 mg-300 mcg- 250 mcg tablet 1 tab PO Q OTHER DAY@1200 budesonide-formoterol [Symbicort] 160-4.5 mcg/actuation HFA aerosol inhaler 1 puff INHALATION BID albuterol sulfate 2.5 mg /3 mL (0.083 %) solution for nebulization 2.5 mg inhalation Q6H PRN (Reason: shortness of breath or wheezing) simvastatin 20 mg tablet 20 mg PO BEDTIME clopidogrel 75 mg tablet 75 mg PO DAILY@1200 levothyroxine 88 mcg tablet 88 mcg PO DAILY@0600 metformin 1,000 mg tablet 1,000 mg PO BID@1200,2100 gabapentin 600 mg tablet 600 mg PO BEDTIME acetaminophen 500 mg tablet 500 mg PO Q6H PRN (Reason: pain) carvedilol 25 mg tablet 12.5 mg PO BID@1200,2100 Entresto 24-26 mg tablet 1 tab PO BID@1200,2100 melatonin 10 mg tablet 10 mg PO BEDTIME PRN (Reason: sleep) Qty: 30 6RF trazodone 50 mg tablet 25 mg PO BEDTIME PRN (Reason: Sleep) Held spironolactone 25 mg tablet 25 mg PO DAILY@1200 Hold Instructions: Resume on 03/19/23. furosemide 20 mg tablet 40 mg PO DAILY Hold Instructions: Resume on 03/19/23. Discharge Orders: Discharge Order (Routine); Ordered 03/17/23 Ordered By: Sonya Reece Diet: Advance to usual diet Activity on Discharge: As tolerated Stand Alone Forms: Patient Portal Discharge page Other Ambulatory Orders: Basic Metabolic Panel (Routine) Timeframe: 2 Days Facility: [facility] - Location: Laboratory Ordered By: Sonya Reece Care Plan Goals: Monitor for signs of worsening/returning hematuria including increased amount of blood noted in the urine Check your BMP in 2 days to make sure that your creatinine levels are getting better then resume Lasix and spironolactone Health Concerns: Pyelonephritis Hematuria HUSEYIN Plan of Treatment: Schedule an appointment with district traffic chief Take all medications as prescribed Assessment: See discharge summary
--- NOTE | 2023-03-17 15:04 | MHC.CM.PN ---
pt lives with dgter has homemaker servceis and is dcd home today
--- NOTE | 2023-03-17 15:11 | MHC.CM.PN ---
pt is indepedent he will dc home no serves
== END 2023-03-17 16:32 | disposition home or self-care (01) | DRG 690 ==
LOC: HO.ED 18:14 → HO.EDOVER 20:34 → HO.S3 03-16 10:44
PROVIDERS: Physician Assistant; Admitting Provider Student in an Organized Health Care Education/Training Program; Emergency Provider Emergency Medicine Emergency Medical Services; PCP Registered Nurse; Visit Provider Nurse Practitioner Acute Care
DX: N10 Acute pyelonephritis (principal); E87.20 Acidosis, unspecified; N30.01 Acute cystitis with hematuria; N17.9 Acute kidney failure, unspecified; K21.9 Gastro-esophageal reflux disease without esophagitis; I25.10 Atherosclerotic heart disease of native coronary artery without angina pectoris; I50.9 Heart failure, unspecified; E03.9 Hypothyroidism, unspecified; E11.40 Type 2 diabetes mellitus with diabetic neuropathy, unspecified; G89.29 Other chronic pain; M54.9 Dorsalgia, unspecified; Z85.3 Personal history of malignant neoplasm of breast; Z90.11 Acquired absence of right breast and nipple; Z79.02 Long term (current) use of antithrombotics/antiplatelets; Z79.84 Long term (current) use of oral hypoglycemic drugs; Z79.890 Hormone replacement therapy; Z79.899 Other long term (current) drug therapy
CPT/HCPCS: 36415; 71045; 74176; 80048; 80053; 81001; 82947; 83605; 83690; 83880; 84300; 85025; 85027; 87040; 94640; 94660; 99285; J0696

== ENCOUNTER → 2023-03-15 20:01 | Outpatient (BNV) | payer OTHER, SELFPAY | PROVIDERS: Admitting Provider Student in an Organized Health Care Education/Training Program; Emergency Provider Emergency Medicine Emergency Medical Services; PCP Registered Nurse; Visit Provider Student in an Organized Health Care Education/Training Program | DX: N17.9 Acute kidney failure, unspecified (principal); R31.9 Hematuria, unspecified | CPT/HCPCS: 99223; 99232; 99239 ==

== ENCOUNTER → 2023-03-15 20:01 | Outpatient (BNV) | payer OTHER, SELFPAY | PROVIDERS: Admitting Provider Student in an Organized Health Care Education/Training Program; Emergency Provider Emergency Medicine Emergency Medical Services; PCP Registered Nurse; Visit Provider Urology | DX: R31.9 Hematuria, unspecified (principal); N30.90 Cystitis, unspecified without hematuria; N17.9 Acute kidney failure, unspecified; N12 Tubulo-interstitial nephritis, not specified as acute or chronic | CPT/HCPCS: 99222 ==

== ENCOUNTER 2023-03-19 11:59 | Outpatient (REF) | payer OTHER, SELFPAY ==
[2023-03-19 13:05] LABS: Anion Gap 11 (12-20); Blood Urea Nitrogen 24 mg/dL (9-16); Calcium 9.6 mg/dL (8.4-10.2); Carbon Dioxide 26 mmol/L (22-29); Chloride 105 mmol/L (96-108); Estimated Glomerular Filt Rate 41; Glucose Random 192 mg/dL (60-115); Potassium 4.3 mmol/L (3.3-5.1); Sodium 138 mmol/L (135-145)
== END 2023-03-19 12:00 | disposition home or self-care (01) ==
LOC: HO.LAB 11:59
PROVIDERS: Visit Provider Nurse Practitioner Acute Care
DX: N12 Tubulo-interstitial nephritis, not specified as acute or chronic (principal); N17.9 Acute kidney failure, unspecified
CPT/HCPCS: 36415; 80048

== ENCOUNTER 2023-04-11 10:40 | Outpatient (REF) | payer OTHER, SELFPAY ==
[2023-04-11 12:13] LABS: Anion Gap 14 (12-20); Blood Urea Nitrogen 25 mg/dL (9-16); Calcium 10.2 mg/dL (8.4-10.2); Carbon Dioxide 28 mmol/L (22-29); Chloride 103 mmol/L (96-108); Estimated Glomerular Filt Rate 40; Glucose Random 150 mg/dL (60-115); Sodium 141 mmol/L (135-145)
== END 2023-04-11 10:41 | disposition home or self-care (01) ==
LOC: HO.HHCL 10:40
PROVIDERS: Visit Provider Registered Nurse
DX: E11.9 Type 2 diabetes mellitus without complications (principal)
CPT/HCPCS: 36415; 80048

== ENCOUNTER 2023-04-14 14:37 | Outpatient (AMB) | payer OTHER, SELFPAY ==
--- NOTE | 2023-04-14 14:40 | A.OFFVIS_ITS ---
Intake Intake Visit Reasons: Cysto Intake Note: Patient presents today for a CYSTOSCOPY Procedure: Meds: None Allergies to Antibiotic: Penicillin Blood Thinner: Furosemide Urinalysis test clear for Cysto? Disposable Uro-G Cystoscope Cannula: Lot: [id number] Exp: 12/06/2024 Transmission Line Engineer Required: Yes Transmission Line Engineer Language: Wire Charger Name: DESMOND Lobo/HILARIA Bowen Information Interpreted: non-clinical & clinical Paint Sprayer Sandblaster: Paint Sprayer Sandblaster Present Accompanied by: Daughter Allergies Penicillins Allergy (Intermediate, Verified 04/14/23 15:12) Rash HPI HPI Comments History of Present Illness Details Charleen is a 77-year-old female who presents today to the office for a follow-up. 04/14/2023? Pt is georgian speaking, certified hourly sign language interpreter present. She is followed today for a cystoscopy procedure. She was hospitalized for acute kidney injury, and she was referred to the urology for gross hematuria at that time. Patient was seen by me in consultation for gross hematuria on 03/17/2023 and at that time, she was treated for urinary tract infection. She complains of having on and off urine leakage associated with coughing. She states that her her diabetic medication was changed as it may have contributed to the UTI. I reviewed the abdomen/pelvis CT results from 03/15/2023 revealed no stone or hydronephrosis. I reviewed the urine culture results from 03/11/2023 revealed Escherichia coli 50,000 to 100,000 cfu/mL. Cystoscopy procedure: The patient was provided naproxen 500 mg, lidocaine 2%, and ciprofloxacin 500 mg x 1 dose pre-procedure today. Consent was obtained to perform cystoscopy procedure. Cystoscopy normal findings: no suspicious bladder lesion found. Evaluation today?UA? Leukocytes: 15 Hugh; blood: negative. Plan: MAMADOU- Discussed Kegel?s exercises with the patient. Follow up in 6 months. [facility] Medical History Numbness of left hand Bilateral hand numbness Vitamin B12 deficiency Neuropathy Breast cancer, right breast Sleep apnea COVID-19 GERD (gastroesophageal reflux disease) Daytime sleepiness Surgical History History of carpal tunnel release H/O right mastectomy History of bilateral oophorectomies History of cholecystectomy History of appendectomy Family History Father No problems noted. Mother No problems noted. Social History Household Members: Family Housing: House Do you presently have visiting nurse or other home services: No Alcohol intake: never Patient Tobacco Use Status: Never used Tobacco service: No Current occupational status: retired Office Procedures Cystoscopy Consent Discussed risk and benefit or proposed procedure with the patient. Information consent for procedure given to the patient. Discussed technical aspects, risks, benefits and alternatives in full. Addressed all of the patient's questions and concerns regarding the procedure. The patient demonstrated knowledge and understanding. They wish to proceed with this procedure. Preparation The patient was prepped in the usual manner. A vice president biostatistics was present and in the room. Genitalia was prepped with betadine solution in a sterile manner. Lidocaine Jelly 2% was placed into the urethra and 16Fr flexible Olympus cystoscope was inserted into the meatus after adequate lubrication. Procedure Time out per protocol performed. Bladder Inspection Bladder Inspection: The bladder was inspected in its entirety with utilization retroflexion displaying: Tumor(s): none visualized Trabeculation: N/A Mucosal Erthema: mild Orifices: normal shape and position Urethra: normal Cystoscopy findings: no suspicious bladder lesions visualized [id number] DISPOSABLE SCOPE URO-G FLEXIBLE SCOPE Procedure code (CPT) selection complete Office Meds lidocaine HCl 2 % mucosal jelly in applicator Performing Provider: Lucy Gilbert MD [facility] Administered by: Adwoa Nolasco RN on 04/14/23 14:55 Dose Route Admin Location Dispensed Lot Number Expiration Date [facility] Robotic Toy Inventor 10 mL intra-urethral 20 mL Comments: by DR Dahl naproxen 500 mg tablet Performing Provider: Lucy Gilbert MD Performing Location[facility] Administered by: Adwoa Nolasco RN on 04/14/23 14:55 Dose Route Admin Location Dispensed Lot Number Expiration Date NDC [employer]or 500 mg PO 1 tab Comments: by Dr Dahl ciprofloxacin HCl 500 mg tablet Performing Provider: Lucy Gilbert MD Performing Location: [facility] Administered by: Adwoa Nolasco RN on 04/14/23 14:55 Dose Route Admin Location Dispensed Lot Number Expiration Date NDC [employer] 500 mg PO 1 tab Comments: by DR Dahl Results AMB Urinalysis, Automated UA Leukoctes 15 Hugh/uL Last Edit by Tee Garcia [facility] on 04/14/23 15:15 UA Nitrite Negative Last Edit by Tee Garcia [facility] on 04/14/23 15:15 UA Urobilinogen 0.2 mg/dL Last Edit by Tee Garcia [facility] on 04/14/23 15:1 5 UA Protein 0 mg/dL Last Edit by Tee Garcia [facility] on 04/14/23 15:15 UA pH 6.0 Last Edit by Tee Garcia [facility] on 04/14/23 15:15 UA Blood 0 Sim/uL Last Edit by Tee Garcia [facility] on 04/14/23 15:15 UA Specific [place] 1.015 Last Edit by Tee Garcia [facility] on 04/14/23 15: 15 UA Ketone Negative Last Edit by Tee Garcia [facility] on 04/14/23 15:15 UA Bilirubin 0 mg/dL Last Edit by Tee Garcia [facility] on 04/14/23 15:15 UA Glucose 0 mg/dL Last Edit by Tee Garcia [facility] on 04/14/23 15:15 Results Reviewed Results Reviewed: Laboratory Last Values Urine pH (Auto) 6.0 04/14/23 15:14 Specific [place] (Auto) 1.015 04/14/23 15:14 Urine Protein (Auto) 0 mg/dL 04/14/23 15:14 Glucose (UA)(Auto) 0 mg/dL 04/14/23 15:14 Urine Ketones (Auto) Negative 04/14/23 15:14 Urine Blood (Auto) 0 Sim/uL 04/14/23 15:14 Urine Nitrite (Auto) Negative 04/14/23 15:14 Urine Bilirubin (Auto) 0 mg/dL 04/14/23 15:14 Urine Urobilinogen (Auto) 0.2 mg/dL 04/14/23 15:14 Leukocyte Esterase (Auto) 15 Hugh/uL 04/14/23 15:14 Date of Service: 03/15/23 EXAMINATION: CT ABDOMEN AND PELVIS WITHOUT CONTRAST?? CLINICAL INFORMATION: Flank pain?? COMPARISON: Previous CT of the abdomen and pelvis 03/12/2023 FINDINGS: LUNG BASES: The visualized lung bases are clear. Right breast implant. Aortic valve and coronary artery calcification. LIVER, GALLBLADDER, AND BILIARY TREE: The liver is normal in size, shape, and attenuation. No focal hepatic lesion or biliary ductal dilatation is present. The gallbladder has been removed. PANCREAS: Unremarkable.?? SPLEEN: Unremarkable.?? ADRENAL GLANDS: Unremarkable.?? KIDNEYS AND URETERS: The kidneys are normal in size, shape, and attenuation. No hydronephrosis, hydroureter, or calculi seen. No perinephric stranding.? ? BLADDER: Unremarkable.?? GASTROINTESTINAL TRACT: Diverticulosis of the colon. The small and large bowel are unremarkable. The appendix is not seen and may have been removed..?? ABDOMINAL WALL: Diastasis of the rectus muscles and small umbilical hernia containing fat.?? LYMPH NODES: Normal. VASCULAR: Unremarkable. PELVIC VISCERA: The uterus appears to have been removed. No pelvic mass.?? OSSEOUS STRUCTURES: Degenerative changes of the spine and left hip joint.?? IMPRESSION: No stone or hydronephrosis. Diverticulosis. No evidence of diverticulitis. Date of service: 03/11/2023-- urine culture Ordered: Urine Culture Procedure Result Verified Site Urine Culture Final 03/13/2343 Organism 1 Escherichia coli Quant 50,000 to 100,000 cfu/mL E coli M.I.C. RX --------- --- Ampicillin 8 S Ceftriaxone <=0.25 S Gentamicin <=1 S Levofloxacin >=8 R Nitrofurantoin <=16 S Trimethoprim/Sulfamethoxazole <=20 S Assessment & Plan Assessment & Plan (1) Pyelonephritis of left kidney: Code(s): N12 - Tubulo-interstitial nephritis, not specified as acute or chronic (2) Hemorrhagic cystitis: Code(s): N30.91 - Cystitis, unspecified with hematuria (3) Hematuria: Code(s): R31.9 - Hematuria, unspecified (4) MAMADOU (stress urinary incontinence, female): Code(s): N39.3 - Stress incontinence (female) (male) Plan Discussed Kegel?s exercises with the patient. Follow up in 6 months. Orders: Orders AMB Urinalysis Automated Today Z13.9 - Encounter for screening, unspecified AMB Cystoscopy Today R31.9 - Hematuria, unspecified Patient Instructions: The patient had an opportunity to ask questions regarding treatment plan. All questions were answered. Imaging, Laboratory studies and physical exam results were discussed and reviewed in detail. No major barriers to understanding were identified. The patient expressed understanding and agreement with the above treatment plan.? ? ? The patient is aware they should contact our office by phone for worsening of their current condition or the appearance of new symptoms. Compliance is encouraged with any medications and followup testing that is ordered.? ? ? It is a privilege to be allowed the opportunity to participate in the urologic care of your patient. If you have any questions or concerns regarding treatment for the above conditions please do not hesitate to contact me. The office telephone contact is [phone].? ? ? This note is constructed in part using voice recognition software. While every effort has been made to ensure accuracy box maker paperboard errors may have been included.? ? ? Yours sincerely,? ? ? Lucy Gilbert MD? Coding Level of Care Code Est Pt Level 3 (09495) Diagnoses Pyelonephritis of left kidney N12 Hemorrhagic cystitis N30.91 Hematuria R31.9 MAMADOU (stress urinary incontinence, female) N39.3 CPT Codes Cystoscopy - CPT: 01656-[id number] ([id number])
== END 2023-04-14 15:12 | disposition home or self-care (01) ==
PROVIDERS: Visit Provider Urology
DX: N12 Tubulo-interstitial nephritis, not specified as acute or chronic (principal); N30.91 Cystitis, unspecified with hematuria; R31.9 Hematuria, unspecified; N39.3 Stress incontinence (female) (male)
CPT/HCPCS: 52000

== ENCOUNTER → 2023-04-14 14:37 | Outpatient (BNVA) | payer OTHER, SELFPAY | PROVIDERS: Visit Provider Urology | DX: N12 Tubulo-interstitial nephritis, not specified as acute or chronic (principal); N30.91 Cystitis, unspecified with hematuria; N39.3 Stress incontinence (female) (male) | CPT/HCPCS: 52000; 81003 ==

== ENCOUNTER 2023-05-28 16:49 | Emergency (ER) | payer OTHER, SELFPAY ==
--- NOTE | 2023-05-28 | ECG_ITS ---
Test Reason : CHEST PAIN Blood Pressure : / mmHG Vent. Rate : 075 BPM Atrial Rate : 075 BPM P-R Int : 240 ms QRS Dur : 150 ms QT Int : 424 ms P-R-T Axes : 054 -25 061 degrees QTc Int : 473 ms Sinus rhythm with 1st degree A-V block with occasional Premature ventricular complexes Left bundle branch block Nonspecific T wave abnormality Abnormal ECG When compared with ECG of 02-FEB-2023 02:37, Premature ventricular complexes are now Present Left bundle branch block is now Present Referred By: Generic ED Physician Electronically Signed By:JEFF VERA MD
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
[2023-05-28 16:53] VITALS: BP 152/79; PULSE 88; O2SAT 97
[2023-05-28 17:06] VITALS: BP 133/61; PULSE 73; RESP 18; TEMP 37.1; O2SAT 98; BMI 34.3
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
[2023-05-28 18:15] VITALS: BP 104/48; PULSE 72; RESP 16; TEMP 36.3; O2SAT 97
[2023-05-28] MEDS: Acetaminophen 325 MG TABLET 975 MG PO (18:33)
[2023-05-28 18:37] LABS: MANUAL DIFF FLAG NO
[2023-05-28 18:39] LABS: Basophils Absolute Auto 0.1 X10*3/uL (0.0-0.2); Basophils Percent Auto 0.7 % (0-2); Eosinophils Absolute Auto 0.2 X10*3/uL (0.0-0.4); Eosinophils Percent Auto 2.5 % (0-4); Hematocrit 33.1 % (37.0-47.0); Hemoglobin 10.9 g/dl (12.0-16.0); Imm Gran Abs Auto 0.02 X10*3/uL (0.00-0.03); Imm Gran Pct Auto 0.3 % (0.0-0.4); Lymphocytes Absolute Auto 1.4 X10*3/uL (1.2-4.9); Mean Corpuscular HGB Conc 32.9 g/dl (31.0-35.0); Mean Corpuscular Hemoglobin 31.5 pg (27.0-33.0); Mean Corpuscular Volume 95.7 fL (80.0-98.0); Mean Platelet Volume 9.9 fL (9.4-12.3); Monocytes Absolute Auto 0.6 X10*3/uL (0.1-1.2); Neutrophils Absolute Auto 4.6 x10*3/uL (2.0-8.3); Neutrophils Percent Auto 67.5 % (45-73); Platelet Count 231 X10*3/uL (160-400); Red Blood Count 3.46 X10*6/uL (4.20-5.50); Red Cell Distribution Width 11.9 % (11.0-16.0); White Blood Count 6.9 X10*3/uL (4.8-10.8)
[2023-05-28 18:44] LABS: INTERNATIONAL NORM RATIO 0.9 (0.9-1.1); Prothrombin Time 11.4 SEC (11.1-13.3)
[2023-05-28 18:53] LABS: Alanine Aminotransferase 8 U/L (0-31); Albumin Level 4.3 g/dL (3.5-5.0); Alkaline Phosphatase 64 U/L (39-117); Anion Gap 15 (12-20); Aspartate Amino Transferase 13 U/L (5-31); Bilirubin Direct 0.2 mg/dL (0.0-0.5); Bilirubin Total 0.5 mg/dL (0.0-1.0); Blood Urea Nitrogen 17 mg/dL (9-16); Calcium 10.3 mg/dL (8.4-10.2); Carbon Dioxide 27 mmol/L (22-29); Chloride 101 mmol/L (96-108); Creatinine Clr Calc Pharmacy 52.1; Estimated Glomerular Filt Rate 56; Glucose Random 121 mg/dL (60-115); Potassium 3.8 mmol/L (3.3-5.1); Sodium 139 mmol/L (135-145); Total Protein 7.4 g/dL (6.5-8.0)
--- NOTE | 2023-05-28 18:55 | PC.NURSE ---
assumed care of pt
[2023-05-28 18:59] LABS: Troponin-I High Sensitivity 3.3 ng/L (<3.5-17.0)
[2023-05-28 19:34] VITALS: BP 126/57; PULSE 70; RESP 15; TEMP 36.5; O2SAT 97
[2023-05-28 21:35] VITALS: BP 111/45; PULSE 66; RESP 15; TEMP 36.3; O2SAT 96
[2023-05-28 23:25] LABS: Troponin-I High Sensitivity 3.7 ng/L (<3.5-17.0)
== END 2023-05-28 23:35 | disposition home or self-care (01) ==
PROVIDERS: Nurse Practitioner Family; Emergency Provider Internal Medicine
DX: S16.1XXA Strain of muscle, fascia and tendon at neck level, initial encounter (principal); S20.219A Contusion of unspecified front wall of thorax, initial encounter; V43.62XA Car passenger injured in collision with other type car in traffic accident, initial encounter; Y93.89 Activity, other specified; Y92.414 Local residential or business street as the place of occurrence of the external cause; Y99.9 Unspecified external cause status
CPT/HCPCS: 36415; 70450; 71250; 72125; 80048; 80076; 84484; 85025; 85610; 93005; 99284; 99285

== ENCOUNTER 2023-06-03 18:37 | Outpatient (REF) | payer OTHER, SELFPAY | END 2023-06-03 18:38 | disposition home or self-care (01) | LOC: HO.HHCLNP 18:37 | PROVIDERS: Visit Provider Internal Medicine Geriatric Medicine | DX: R39.9 Unspecified symptoms and signs involving the genitourinary system (principal) | CPT/HCPCS: 87086 ==

== ENCOUNTER 2023-09-17 10:37 | Inpatient (IN) | payer OTHER, SELFPAY ==
[2023-09-17] VITALS (12 sets, daily range): BP systolic 91–190; BP diastolic 49–60; PULSE 81–150; RESP 14–22; TEMP 36.3–37; O2SAT 80–98; BMI 34.6
--- NOTE | ~2023-09-17 | XR_ITS ---
EXAMINATION: XR CHEST CLINICAL INFORMATION: Dyspnea COMPARISON: 03/15/2023, 05/28/[address] TECHNIQUE: Frontal view of the chest was obtained. FINDINGS: Heart and mediastinum within normal limits. Aortic valve stenting again seen. Mild central vascular prominence without overt failure. Visualization of the right minor fissure. No costophrenic angle blunting. Mild basilar atelectasis. Degenerative changes. XR/XR chest 1V IMPRESSION: Mild central vascular prominence without overt failure. No consolidations. Mild basilar atelectasis.
[2023-09-17 10:56] LABS: Glucose, Whole Blood 302 mg/dL (60-115)
--- NOTE | 2023-09-17 10:58 | ECG_ITS ---
Test Reason : cp Blood Pressure : / mmHG Vent. Rate : 095 BPM Atrial Rate : 095 BPM P-R Int : 208 ms QRS Dur : 138 ms QT Int : 406 ms P-R-T Axes : 070 026 104 degrees QTc Int : 510 ms Normal sinus rhythm Non-specific intra-ventricular conduction block Cannot rule out Septal infarct , age undetermined Possible Lateral infarct , age undetermined Abnormal ECG When compared with ECG of 28-MAY-2023 17:02, Premature ventricular complexes are no longer Present DC interval has decreased Referred By: Debi Gar Electronically Signed By:
[2023-09-17] MEDS: Nitroglycerin 2 % Oint 1 GM Packet 0.5 INCH TRANSDERMA (11:04)
--- NOTE | 2023-09-17 11:07 | ED.SOB ---
HPI - SOB/Dyspnea General Chief Complaint: Dyspnea Stated Complaint: CP,CPAP @10LPM PER EMS Time Seen by Provider: 09/17/23 10:50 History of Present Illness HPI Narrative: Patient is a 78-year-old presents today with having episodes of sudden onset shortness of breath. Been noticed by family to be short of breath the last few days. Had much worse symptoms today. No history of atrial fibrillation in the past. Positive history of congestive heart failure positive history of having a stent positive history of having valve replacement done at [facility]. 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 Presented to [place] with increasing shortness of breath very very abrupt in onset. Patient denies any leg swelling. Been compliant with her medication. Only on Plavix. No leg swelling noted. No coughing or congestion or upper respiratory symptoms. Positive history of breast cancer over 20 years ago. History of urinary tract infection. Related Data Home Medications Medication Instructions Recorded Confirmed acetaminophen 500 mg tablet 500 mg PO Q6H PRN pain 04/26/22 03/15/23 clopidogrel 75 mg tablet 75 mg PO DAILY@1200 04/26/22 03/15/23 gabapentin 600 mg tablet 600 mg PO BEDTIME 04/26/22 03/15/23 levothyroxine 88 mcg tablet 88 mcg PO DAILY@0600 04/26/22 03/15/23 metformin 1,000 mg tablet 1,000 mg PO BID@1200,209904/26/22 03/15/23 simvastatin 20 mg tablet 20 mg PO BEDTIME 04/26/22 03/15/23 spironolactone 25 mg tablet 25 mg PO DAILY@119904/26/22 03/15/23 sacubitril 24 mg-valsartan 26 mg 1 tab PO BID@1199,209910/08/22 03/15/23 tablet (Entresto) dapagliflozin propanediol 10 mg 10 mg PO DAILY@1200 02/07/23 03/15/23 tablet carvedilol 25 mg tablet 12.5 mg PO BID@1200,209902/25/23 03/15/23 furosemide 20 mg tablet 40 mg PO DAILY 02/25/23 03/15/23 trazodone 50 mg tablet 25 mg PO BEDTIME PRN Sleep 02/25/23 03/15/23 albuterol sulfate 2.5 mg/3 mL 2.5 mg inhalation Q6H PRN 03/15/23 03/15/23 (0.083 %) solution for nebulization shortness of breath or wheezing budesonide-formoterol HFA 160 1 puff inhalation BID 03/15/23 03/15/23 mcg-4.5 mcg/actuation aerosol inhaler (Symbicort) cyanocobalamin (vitamin B-12) 1,000 mcg sublingual FR@0900 03/15/23 03/15/23 1,000 mcg sublingual tablet gabapentin 300 mg capsule 300 mg PO DAILY@1200 03/15/23 03/15/23 lidocaine 5 % topical patch 1 patch topical DAILY PRN Pain 03/15/23 03/15/23 lidocaine-prilocaine 2.5 %-2.5 % 1 appl topical BID PRN neuropathic 03/15/23 03/15/23 topical cream pain [id number] acid 0.4 1 tab PO Q OTHER DAY@1200 03/15/23 03/15/23 mg-lycopene 300 mcg-lutein 250 mcg tablet (Cerovite Senior) naproxen 500 mg tablet 500 mg PO BID PRN Pain 03/15/23 03/15/23 pantoprazole 20 mg tablet,delayed 20 mg PO BID 03/15/23 03/15/23 release Previous Rx's Medication Instructions Recorded melatonin 10 mg tablet 10 mg PO BEDTIME PRN sleep #30 tabs 10/08/22 mastectomy bra (bra, mastectomy) #1 ea 02/07/23 cefuroxime axetil 250 mg tablet 250 mg PO BID #8 tabs 03/17/23 Allergies Allergy/AdvReac Type Severity Reaction Status Date / Time Penicillins Allergy Intermediate Rash Verified 09/17/23 10:48 aspirin [ASA] Allergy Unknown Verified 09/17/23 10:48 Review of Systems Review of Systems: Positive shortness of breath Yes all other systems are reviewed and are negative [facility] Past Medical History Attestation statement: The following information was validated with the patient. Medical History Numbness of left hand Bilateral hand numbness Vitamin B12 deficiency Neuropathy Breast cancer, right breast Sleep apnea COVID-19 GERD (gastroesophageal reflux disease) Daytime sleepiness Surgical History History of carpal tunnel release H/O right mastectomy History of bilateral oophorectomies History of cholecystectomy History of appendectomy Family History Family History Father No problems noted. Mother No problems noted. Social History Social History Household Members: Family Housing: House Do you presently have visiting nurse or other home services: No Unable to assess alcohol history related to: Unknown Alcohol intake: never Patient Tobacco Use Status: Never used Tobacco Advance Directives: No service: No Current occupational status: retired Physical Exam Vital Signs: Vital Signs: Last Vital Signs Temp 98.6 F 09/17/23 10:41 Pulse 82 09/17/23 11:55 Resp 18 09/17/23 13:25 BP 107/55 L 09/17/23 11:55 Pulse Ox 97 09/17/23 11:55 O2 Del Method BiPAP 09/17/23 11:55 O2 Flow Rate 30 09/17/23 11:55 BMI result Body Mass Index 34.6 Appearance: Alert. Oriented X3. No acute distress. Eyes: Pupils equal, round and reactive to light. ENT: Pharynx normal. Neck: Normal inspection. Positive JVD CVS: Normal heart rate and rhythm. Pulses normal. Normal S1 and S2 Respiratory: Diminished breath sounds bilaterally positive wheezing up the entire lung field positive increased work of breathing Abdomen: Soft and nontender. No rigidity. No distention. good BS x4 Skin: Skin warm and dry. Normal skin color. Normal skin turgor. Extremities: No lower extremity edema. Neurovascular intact to all extremities. No Lacerations. No Rash Neuro: Oriented X 3. No motor deficit. No sensory deficit. Moving all extermities. No slurred speech Medications Administered Discontinued Medications Generic Name Dose Route Start Last Admin Trade Name Freq PRN Reason Stop Dose Admin Nitroglycerin 0.5 inch 09/17/23 11:03 09/17/23 11:04 Nitroglycerin 2 % Oint 1 Gm Packet TRANSDERMA 09/17/23 11:04 0.5 inch ONCE ONE Administration Medical Decision Making Medical Decision Making MDM Narrative: Patient is 78 years old presents today with having extreme shortness of breath. Very sudden abrupt in onset. On exam patient has crackles and rales up the entire lung field. With increased work of breathing. Started on BiPAP. Lasix was given by EMS 40 mg. Nitroglycerin was started in emergency department. Patient's chest x-ray consistent with congestive heart failure BNP elevated. Monitor in the emergency department for about 3 hours. Patient is symptomatically feel much improved now is lying flat sleeping no longer short of breath. Labs are pending. Taken off BiPAP will monitor very carefully. 14:00 Patient taken off BiPAP after 3 hours. So an outlying flat comfortable is on room air. Symptoms are adequately feel much improved. Sleeping. Will admit patient for further evaluation likely flash pulmonary edema. Hospitalist made aware. Differential Diagnosis Differential Diagnoses: The differential diagnosis associated with the presentation includes Congestive heart failure, pneumonia, COPD, viral illness Admission/Observation Consideration of admission/observation: Escalation of care including admission/observation considered Patient require admission Consult Healthcare Provider Management of the patient was discussed with: Hospitalist Lab Data MDM Lab Attestation statement: I reviewed the patient's lab results. 09/17/23 11:22 09/17/23 11:22 Labs: Lab Results 09/17/23 09/17/23 09/17/23 Range/Units 10:52 11:22 12:02 WBC 12.5 H (4.8-10.8) X10*3/uL RBC 3.66 L (4.20-5.50) X10*6/uL Hgb 11.6 L (12.0-16.0) g/dl Hct 35.5 L (37.0-47.0) % MCV 97.0 (80.0-98.0) fL MCH 31.7 (27.0-33.0) pg MCHC 32.7 (31.0-35.0) g/dl RDW 13.0 (11.0-16.0) % Plt Count 200 (160-400) X10*3/uL MPV 10.5 (9.4-12.3) fL Immature Gran % (Auto) 0.4 (0.0-0.4) % Neut % (Auto) 83.8 H (45-73) % Lymph % (Auto) 8.9 L (20-40) % [place] % (Auto) 3.9 (2-11) % Eos % (Auto) 2.5 (0-4) % Baso % (Auto) 0.5 (0-2) % Lymph # (Auto) 1.1 L (1.2-4.9) X10*3/uL [place] # (Auto) 0.5 (0.1-1.2) X10*3/uL Eos # (Auto) 0.3 (0.0-0.4) X10*3/uL Baso # (Auto) 0.1 (0.0-0.2) X10*3/uL Abs Immat Gran (auto) 0.05 H (0.00-0.03) X10*3/uL Absolute Neuts (auto) 10.4 H (2.0-8.3) x10*3/uL Absolute Nucleated RBC 0.000 (0.0-0.012) X10*3/uL Nucleated RBC % (auto) 0.0 (0.0-0.2) /100WBC PT 11.5 (11.1-13.3) SEC INR 0.9 (0.9-1.1) Sodium 138 (135-145) mmol/L Potassium 4.0 (3.3-5.1) mmol/L Chloride 103 (96-108) mmol/L Carbon Dioxide 26 (22-29) mmol/L Anion Gap 13 (12-20) BUN 23 H (9-16) mg/dL Creatinine 1.30 (0.5-1.4) mg/dL Estim Creat Clear Calc 39.8 Estimated GFR 40 POC Glucose 302 H (60-115) mg/dL Random Glucose 312 H (60-115) mg/dL Calcium 9.6 D (8.4-10.2) mg/dL Magnesium 1.8 (1.6-2.6) mg/dL Total Bilirubin 0.5 (0.0-1.0) mg/dL Direct Bilirubin 0.3 (0.0-0.5) mg/dL AST 27 (5-31) U/L ALT 23 (0-31) U/L Alkaline Phosphatase 65 (39-117) U/L Troponin I High Sens 15.8 D (<3.5-17.0) ng/L B-Natriuretic Peptide 818 H (<100) pg/mL Total Protein 7.5 (6.5-8.0) g/dL Albumin 4.2 (3.5-5.0) g/dL Influenza Type A (PCR) NEGATIVE (Negative) Influenza Type B (PCR) NEGATIVE (Negative) RSV RNA Qual (PCR) NEGATIVE (Negative) SARS-CoV-2 RNA (RT-PCR) NEGATIVE (Negative) Independent Interpretation I performed an independent interpretation of an: EKG (EKG showed a sinus pattern heart rate is 90 MT is normal there is a left bundle branch block did have anterior ST segment elevation but did not meet Sgarbossa criteria. Not consistent with a STEMI) and Plain X-Ray (Congestive heart failure) Radiology Impression Discussion of test interpretation with radiology: I have reviewed the radiologist's reading. Independent Historian Clinical information obtained from an independent historian. History obtained from or confirmed by: Other (Patient's daughter) External Record Review External record reviewed: Inpatient record Chronic Conditions Diabetes, hypertension, congestive heart failure Social Determinants Patient?s care significantly limited by Social Determinants of Health including: Problems related to primary support group Critical Care Time Critical Care Time Critical Care Time: Yes Total Critical Care Time: 60 Attestation: I have personally provided 60 minutes of critical care time exclusive of time spent on separately billable procedures. ?Time includes review of lab data, radiology results, discussion with consultants, and monitoring for potential decompensation. ?Interventions were performed as documented above Discharge Plan Discharge Clinical Impression: CHF (congestive heart failure) Patient Disposition: Admitted As Inpatient Prescriptions: No Action dapagliflozin propanediol 10 mg Tablet 10 mg PO DAILY@1200 (DME) bra, mastectomy Crystals Qty: 1 0RF Rx Instructions: As Directed lidocaine-prilocaine 2.5-2.5 % cream 1 appl topical BID PRN (Reason: neuropathic pain) pantoprazole 20 mg tablet,delayed release (DR/EC) 20 mg PO BID lidocaine 5 % adhesive patch,medicated 1 patch topical DAILY PRN (Reason: Pain) gabapentin 300 mg capsule 300 mg PO DAILY@1200 cyanocobalamin (vitamin B-12) 1,000 mcg tablet, sublingual 1,000 mcg sublingual FR@0900 naproxen 500 mg tablet 500 mg PO BID PRN (Reason: Pain) Cerovite Senior 0.4 mg-300 mcg- 250 mcg tablet 1 tab PO Q OTHER DAY@1200 budesonide-formoterol [Symbicort] 160-4.5 mcg/actuation HFA aerosol inhaler 1 puff INHALATION BID albuterol sulfate 2.5 mg /3 mL (0.083 %) solution for nebulization 2.5 mg inhalation Q6H PRN (Reason: shortness of breath or wheezing) cefuroxime axetil 250 mg tablet 250 mg PO BID Qty: 8 0RF simvastatin 20 mg tablet 20 mg PO BEDTIME clopidogrel 75 mg tablet 75 mg PO DAILY@1200 spironolactone 25 mg tablet 25 mg PO DAILY@1200 Hold Instructions: Resume on 03/19/23. levothyroxine 88 mcg tablet 88 mcg PO DAILY@0600 metformin 1,000 mg tablet 1,000 mg PO BID@1200,2100 gabapentin 600 mg tablet 600 mg PO BEDTIME acetaminophen 500 mg tablet 500 mg PO Q6H PRN (Reason: pain) carvedilol 25 mg tablet 12.5 mg PO BID@1200,2100 Entresto 24-26 mg tablet 1 tab PO BID@1200,2100 melatonin 10 mg tablet 10 mg PO BEDTIME PRN (Reason: sleep) Qty: 30 6RF furosemide 20 mg tablet 40 mg PO DAILY Hold Instructions: Resume on 03/19/23. trazodone 50 mg tablet 25 mg PO BEDTIME PRN (Reason: Sleep)
--- NOTE | 2023-09-17 11:11 | PC.NURSE ---
Pt arrived via EMS on Bipap, pt had sudden onset SOB this morning. She is currently having shallow breathing, tripod, pt has history of CHF, concerns for new Afib. Awaiting testing results at this time
[2023-09-17 11:26] LABS: MANUAL DIFF FLAG NO
[2023-09-17 11:29] LABS: Basophils Absolute Auto 0.1 X10*3/uL (0.0-0.2); Basophils Percent Auto 0.5 % (0-2); Eosinophils Absolute Auto 0.3 X10*3/uL (0.0-0.4); Eosinophils Percent Auto 2.5 % (0-4); Hematocrit 35.5 % (37.0-47.0); Hemoglobin 11.6 g/dl (12.0-16.0); Imm Gran Abs Auto 0.05 X10*3/uL (0.00-0.03); Imm Gran Pct Auto 0.4 % (0.0-0.4); Lymphocytes Absolute Auto 1.1 X10*3/uL (1.2-4.9); Lymphocytes Percent Auto 8.9 % (20-40); Mean Corpuscular HGB Conc 32.7 g/dl (31.0-35.0); Mean Corpuscular Hemoglobin 31.7 pg (27.0-33.0); Mean Platelet Volume 10.5 fL (9.4-12.3); Monocytes Absolute Auto 0.5 X10*3/uL (0.1-1.2); Monocytes Percent Auto 3.9 % (2-11); Neutrophils Absolute Auto 10.4 x10*3/uL (2.0-8.3); Neutrophils Percent Auto 83.8 % (45-73); Platelet Count 200 X10*3/uL (160-400); Red Blood Count 3.66 X10*6/uL (4.20-5.50); White Blood Count 12.5 X10*3/uL (4.8-10.8)
[2023-09-17 11:33] LABS: INTERNATIONAL NORM RATIO 0.9 (0.9-1.1); Prothrombin Time 11.5 SEC (11.1-13.3)
[2023-09-17 11:43] LABS: Alanine Aminotransferase 23 U/L (0-31); Albumin Level 4.2 g/dL (3.5-5.0); Alkaline Phosphatase 65 U/L (39-117); Anion Gap 13 (12-20); Aspartate Amino Transferase 27 U/L (5-31); Bilirubin Direct 0.3 mg/dL (0.0-0.5); Bilirubin Total 0.5 mg/dL (0.0-1.0); Blood Urea Nitrogen 23 mg/dL (9-16); Calcium 9.6 mg/dL (8.4-10.2); Carbon Dioxide 26 mmol/L (22-29); Chloride 103 mmol/L (96-108); Creatinine Clr Calc Pharmacy 39.8; Estimated Glomerular Filt Rate 40; Glucose Random 312 mg/dL (60-115); Magnesium 1.8 mg/dL (1.6-2.6); Sodium 138 mmol/L (135-145); Total Protein 7.5 g/dL (6.5-8.0)
[2023-09-17 11:48] LABS: B Type Natriuretic Peptide 818 pg/mL (<100)
[2023-09-17 11:50] LABS: Troponin-I High Sensitivity 15.8 ng/L (<3.5-17.0)
[2023-09-17 12:44] LABS: Influenza A PCR NEGATIVE (Negative); Influenza B PCR NEGATIVE (Negative); Resp Syncy Virus RNA Qual PCR NEGATIVE (Negative); SARS COV2 PCR INHOUSE NEGATIVE (Negative)
[2023-09-17] MEDS: Acetaminophen 325 MG TABLET 650 MG PO (14:35)
--- NOTE | 2023-09-17 14:36 | P.HPHOSP_ITS ---
History of Present Illness Date of Service: 09/17/23 <BARRY Zuniga - Last Filed: 09/17/23 15:16> Attending physician on admission: Levi Cagle <BARRY Zuniga - Last Filed: 09/17/23 15:16> Chief Complaint: dyspnea, chest tightness <BARRY Zuniga - Last Filed: 09/17/23 15:16> 78 year old female with history of HfrEF, insulin dependent type 2 diabetes, hypothyroidism, vamsi on cpap, CAD, nonischemic cardiomyopathy, severe aortic stenosis s/p TAVR on plavix, h/o breast cancer 1988 presented to the ED earlier today for evaluation of dyspnea. Reports worsening dyspnea with exertion ongoing for several days associated with left sided chest tightness, pleuritic in nature. Reports some SOB at rest as well. Has had some improvement with albuterol inhaler (no recorded history of asthma/COPD). Reports symptoms abruptly worsened this morning. States she does not fluid or salt restrict. No fevers, chills, st, congestion, abd pain, n/v/d, cough, lightheadedness, palpiations, or retrosternal chest pressure. On arrival, patient tachypenic, tripodding per ED provider. Vitals otherwise stable. WBC 12.5, stable normocytic anemia. Creat increased from baseline at 1.30, baseline around 1, BUN 23. Lytes normal. Trop 15, BNP >800. Negative for flu, influenza, rsv. CXR shows mild central vascular prominence without overt failure. No consolidations, and mild bibasilar atelectasis. Given 40mg IV lasix in ED and was placed on bipap in ED with great improvement in symptoms. She is currently resting laying flat without any dyspnea. She is complaining of intermittent cramping in the BLE which is new. <BARRY Zuniga - Last Filed: 09/17/23 15:16> Review of Systems 2 Review of Systems: General: No fevers, malaise, unintentional weight loss HEENT: No blurred vision, diplopia. No sore throat, nasal congestion, rhinorrhea, sinus pain, ear pain Cardiovascular: No chest pain, palpitations, or leg edema Respiratory: +dyspnea. No orthopnea, PND, wheezing, cough GI: No abdominal pain, nausea, vomiting, diarrhea, constipation, melena, hematochezia : No dysuria, hematuria, increased urinary frequency, decreased urinary output MSK: No myalgia, back pain Neuro: No headaches, weakness, paresthesias Skin: No rashes or lesions <BARRY Zuniga - Last Filed: 09/17/23 15:16> [facility] Medical History: Medical History Numbness of left hand Bilateral hand numbness Vitamin B12 deficiency Neuropathy Breast cancer, right breast Sleep apnea COVID-19 GERD (gastroesophageal reflux disease) Daytime sleepiness <BARRY Zuniga - Last Filed: 09/17/23 15:16> Family History: Family History Father No problems noted. Mother No problems noted. <BARRY Zuniga - Last Filed: 09/17/23 15:16> Surgical History: Surgical History History of carpal tunnel release H/O right mastectomy History of bilateral oophorectomies History of cholecystectomy History of appendectomy <BARRY Zuniga - Last Filed: 09/17/23 15:16> Social History: Social History Household Members: Other Household Members Other:: daughter Housing: House Do you presently have visiting nurse or other home services: Yes (nursing home assistant) Unable to assess alcohol history related to: Unknown Alcohol intake: never Patient Tobacco Use Status: Never used Tobacco Second Hand Smoke Exposure: No Use of substances other than those prescribed or required for medical reasons: No Currently Displaying Signs/Symptoms of Drug Intoxication Withdrawal: No Have you been hit, kicked, punched, or otherwise hurt by someone within the past year? If so, by whom?: No Do you feel safe in your current relationship?: Yes Is there a partner from a previous relationship who is making you feel unsafe now?: No Are you made to feel afraid or neglected: No Orthodox Healthcare Practices: pentacostal Advance Directives: No Do you have thoughts of harming others: None Do you have a plan to hurt others: No Plan Recently lost weight without trying: No Nutrition Risks: No Nutritional Risk Patient : No : No Poor oral hygiene: No service: No Current occupational status: retired <BARRY Zuniga - Last Filed: 09/17/23 15:16> Meds Allergies/Adverse reactions: Allergies Allergy/AdvReac Type Severity Reaction Status Date / Time Penicillins Allergy Intermediate Rash Verified 09/17/23 10:48 aspirin [ASA] Allergy Unknown Verified 09/17/23 10:48 <BARRY Zuniga - Last Filed: 09/17/23 15:16> Active Medications: Current Medications Acetaminophen (Acetaminophen 325 Mg Tablet) 650 mg PO Q6H PRN PRN Reason: Pain, Mild (Pain Scale 1-3) Dextrose (Dextrose 50 % 25 Gm/50 Ml Syringe) 25 gm IVPUSH Q15M PRN; Protocol PRN Reason: per Hypoglycemia Standing Ord. Enoxaparin Sodium (Enoxaparin Sodium 40 Mg/0.4 Ml Syringe) 40 mg SUBCUT Q24H ELROY Furosemide (Furosemide 40 Mg/4 Ml Vial) 40 mg IVPUSH DAILY ELROY; Protocol Glucose (Glucose Gel 15 Gm Gel..Gram.) 15 gm PO Q15M PRN; Protocol PRN Reason: per Hypoglycemia Standing Ord. Insulin Human Lispro (Insulin Lispro 100 Unit/Ml 3 Ml Vial) 0 unit SUBCUT QIDACHS ELROY; Protocol Ondansetron HCl (Ondansetron Hcl 4 Mg/2 Ml Vial) 4 mg IVPUSH Q8H PRN PRN Reason: Nausea and Vomiting Senna (Sennosides 8.6 Mg Tablet) 17.2 mg PO BEDTIME PRN PRN Reason: Constipation Sodium Chloride (0.9 % Sodium Chloride Flush 3 Ml Syringe) 3 ml IVFLUSH QSHIFT ELROY <BARRY Zuniga - Last Filed: 09/17/23 15:16> Home medications: Home Medications Medication Instructions Recorded Confirmed Last Taken Type acetaminophen 500 mg tablet 500 mg PO Q6H PRN pain 04/26/22 09/17/23 09/16/23 History clopidogrel 75 mg tablet 75 mg PO DAILY@1200 04/26/22 09/17/23 09/16/23 History gabapentin 600 mg tablet 600 mg PO BEDTIME 09/09/17/23 09/16/23 History levothyroxine 88 mcg tablet 88 mcg PO DAILY@0600 04/26/22 09/17/23 09/17/23 History metformin 1,000 mg tablet 1,000 mg PO BID@1200,2100 04/26/22 09/17/23 09/16/23 History simvastatin 20 mg tablet 20 mg PO BEDTIME 04/26/22 09/17/23 09/16/23 History spironolactone 25 mg tablet 25 mg PO DAILY@1200 04/26/22 09/17/23 09/16/23 History sacubitril 24 mg-valsartan 26 mg 1 tab PO BID@1200,2100 10/08/22 09/17/23 09/16/23 History tablet (Entresto) carvedilol 25 mg tablet 12.5 mg PO BID@1200,2100 02/25/23 09/17/23 09/16/23 History furosemide 20 mg tablet 20 mg PO BID@0900,1200 02/25/23 09/17/23 09/16/23 History trazodone 50 mg tablet 50 mg PO BEDTIME Sleep 02/25/23 09/17/23 09/16/23 History albuterol sulfate 2.5 mg/3 mL 2.5 mg inhalation Q6H PRN 03/15/23 09/17/23 Unknown History (0.083 %) solution for nebulization shortness of breath or wheezing budesonide-formoterol HFA 160 1 puff inhalation BID 03/15/23 09/17/23 09/16/23 History mcg-4.5 mcg/actuation aerosol inhaler (Symbicort) cyanocobalamin (vitamin B-12) 1,000 mcg sublingual FR@0900 03/15/23 09/17/23 09/16/23 History 1,000 mcg sublingual tablet gabapentin 300 mg capsule 300 mg PO DAILY@1200 03/15/23 09/17/23 09/16/23 History lidocaine 5 % topical patch 1 patch topical DAILY PRN Pain 03/15/23 09/17/23 Unknown History lidocaine-prilocaine 2.5 %-2.5 % 1 appl topical BID PRN neuropathic 03/15/23 09/17/23 09/16/23 History topical cream pain [id number]-[id number] acid 0.4 1 tab PO Q OTHER DAY@1200 03/15/23 09/17/23 09/16/23 History mg-lycopene 300 mcg-lutein 250 mcg tablet (Cerovite Senior) pantoprazole 20 mg tablet,delayed 20 mg PO DAILY 03/15/23 09/17/23 09/16/23 History release diclofenac sodium 1 % topical gel 4 g topical BID PRN Pain 09/17/23 09/17/23 Unknown History glipizide 5 mg tablet, extended 5 mg PO DAILY 09/17/23 09/17/23 Unknown History release 24 hr melatonin 10 mg tablet 10 mg PO BEDTIME sleep 09/17/23 09/17/23 09/16/23 History simethicone 80 mg chewable tablet 80 mg PO TIDWM gas 09/17/23 09/17/23 09/16/23 History <BARRY Zuniga - Last Filed: 09/17/23 15:16> Physical Exam 2 Vital Signs and Narrative: Vital Signs: Last Vital Signs Temp 98.6 F 09/17/23 10:41 Pulse 82 09/17/23 11:55 Resp 18 09/17/23 13:25 BP 107/55 L 09/17/23 11:55 Pulse Ox 97 09/17/23 11:55 O2 Del Method BiPAP 09/17/23 11:55 O2 Flow Rate 30 09/17/23 11:55 BMI result Body Mass Index 34.6 <BARRY Zuniga - Last Filed: 09/17/23 15:16> Constitutional - Awake and Alert, No apparent distress Eyes - PERRLA, EOMI Cardiovascular - S1S2, RRR, 1+ ble edema Respiratory - Normal lung expansion, Normal respiratory effort, No respiratory distress, crackles BLL L>R Gastrointestinal - NT / ND; +BS; No rebound or guarding Extremities - no calf tenderness bilaterally, no swelling Skin - Warm/Dry Neurological - Alert & oriented x3 Psychological - Appropriate affect <BARRY Zuniga - Last Filed: 09/17/23 15:16> Results Labs CBC and Chem 7: 09/17/23 11:22 09/18/23 05:09 <BARRY Zuniga - Last Filed: 09/17/23 15:16> Labs: Laboratory Results - last 24 hr 09/17/23 09/17/23 09/17/23 10:52 11:22 12:02 MCV 97.0 MCH 31.7 MCHC 32.7 RDW 13.0 Plt Count 200 MPV 10.5 Immature Gran % (Auto) 0.4 Neut % (Auto) 83.8 H Lymph % (Auto) 8.9 L Posey % (Auto) 3.9 Eos % (Auto) 2.5 Baso % (Auto) 0.5 Lymph # (Auto) 1.1 L Posey # (Auto) 0.5 Eos # (Auto) 0.3 Baso # (Auto) 0.1 Abs Immat Gran (auto) 0.05 H Absolute Neuts (auto) 10.4 H Absolute Nucleated RBC 0.000 Nucleated RBC % (auto) 0.0 PT 11.5 INR 0.9 Anion Gap 13 Estim Creat Clear Calc 39.8 Estimated GFR 40 POC Glucose 302 H Random Glucose 312 H Calcium 9.6 D Magnesium 1.8 Total Bilirubin 0.5 Direct Bilirubin 0.3 AST 27 ALT 23 Alkaline Phosphatase 65 Troponin I High Sens 15.8 D B-Natriuretic Peptide 818 H Total Protein 7.5 Albumin 4.2 Influenza Type A (PCR) NEGATIVE Influenza Type B (PCR) NEGATIVE RSV RNA Qual (PCR) NEGATIVE SARS-CoV-2 RNA (RT-PCR) NEGATIVE <BARRY Zuniga - Last Filed: 09/17/23 15:16> Imaging Radiologist's Impressions: Impressions Chest X-Ray 09/17/23 11:14 IMPRESSION: Mild central vascular prominence without overt failure. No consolidations. Mild basilar atelectasis. <BARRY Zuniga - Last Filed: 09/17/23 15:16> Assessment and Plan (1) CHF (congestive heart failure): Status: Acute <BARRY Zuniga - Last Filed: 09/17/23 15:16> 78 year old female with history of HfrEF, insulin dependent type 2 diabetes, hypothyroidism, vamsi on cpap, CAD, nonischemic cardiomyopathy, severe aortic stenosis s/p bioprosthetic TAVR on plavix, h/o breast cancer 1988 admitted for CHF exaceration. #Acute CHF exacerbation -[facility] echo 05/[facility] showing severely reduced LV systolic function EF 20-25%, severe global hypokinesis, abnormal septal motion consistent with LBBB, unable to assess diastolic dysfunction -Iv lasix 40mg daily -stict I&O -daily weights -cardiac diet -continue entresto, spironolactone -Follow renal function/lytes. Trend BMP #Intermittent leg cramping -no calf ttp -repeat lytes given lasix administration, replete if needed -resume gabapentin #insulin dependent type 2 diabetes- with hyperglycemia -poc glucose, diabetic diet -humalog on sliding scale -hold metformin #VAMSI/?COPD -no exacerbation- no record of COPD but on maintanence inhalers, continue -albuterol prn -cpap bedtime #hypothyroidism -synthroid #CAD/Nonischemic cardiomyopathy/TAVR -no anginal chest pain -EKG with acute ischemic changes -continue plavix, bb DVT prophylaxis- lovenox full code Pt requires inpt stat at least 2 midnights for management for management of acute chf exacberation having required bipap and requiring ongoing iv diuresis with close monitoring of I&O, and renal function/lytes <BARRY Zuniga - Last Filed: 09/17/23 15:16> 78 year old female with history of HfrEF, insulin dependent type 2 diabetes, hypothyroidism, vamsi on cpap, CAD, nonischemic cardiomyopathy, severe aortic stenosis s/p bioprosthetic TAVR on plavix, h/o breast cancer 1988 admitted for CHF exaceration. #Acute CHF exacerbation -Last echo 05/[facility] at [facility] showing severely reduced LV systolic function EF 20-25%, severe global hypokinesis, abnormal septal motion consistent with LBBB, unable to assess diastolic dysfunction -Iv lasix 40mg daily -stict I&O -daily weights -cardiac diet -continue entresto, spironolactone -Follow renal function/lytes. Trend BMP #Intermittent leg cramping -no calf ttp -repeat lytes given lasix administration, replete if needed -resume gabapentin #insulin dependent type 2 diabetes- with hyperglycemia -poc glucose, diabetic diet -humalog on sliding scale -hold metformin #VAMSI/?COPD -no exacerbation- no record of COPD but on maintanence inhalers, continue -albuterol prn -cpap bedtime #hypothyroidism -synthroid #CAD/Nonischemic cardiomyopathy/TAVR -no anginal chest pain -EKG with acute ischemic changes -continue plavix, bb DVT prophylaxis- lovenox full code Pt requires inpt stat at least 2 midnights for management for management of acute chf exacberation having required bipap and requiring ongoing iv diuresis with close monitoring of I&O, and renal function/lytes Addendum to history and physical by the advanced practice provider, BARRY Reynoso I interviewed and examined the patient. I discussed their presentation and management with the SHYANNE. I reviewed the history and physical and agree with the documentation, with the following additions and corrections: This history was taken in Italian from the patient. 78yo F with HFrEF, DM2, hypothyroidism, VAMSI, CAD, NICM, severe aortic stenosis s/p TAVR, hx breast AC presenting with 1d of severe dyspnea, L-sided chest tightness Placed on BiPAP briefly in ED due to repisratory distress. Now on room air. Given diuresis for suspected CHF exacerbation. Admit for CHF- IV diuresis with lytes/I+O/wt monitoring. <Levi Cagle MD - Last Filed: 09/18/23 10:45> Quality Stroke Does the patient have a stroke diagnosis?: No <BARRY Zuniga - Last Filed: 09/17/23 15:16> VTE Prior VTE?: No <BARRY Zuniga - Last Filed: 09/17/23 15:16> VTE Risk Level:: Medical - moderate - high <BARRY Zuniga - Last Filed: 09/17/23 15:16> VTE Device Contraindication: Treatment Not Indicated <BARRY Zuniga - Last Filed: 09/17/23 15:16> VTE Drug Contraindication: N/A - Med Ordered <BARRY Zuniga - Last Filed: 09/17/23 15:16>
--- NOTE | 2023-09-17 15:27 | PHA.MEDREC ---
Pharmacy Consult ? Medication Reconciliation Pharmacy has completed the medication reconciliation. Confirmed medications with family member, claim history, and list.
--- NOTE | 2023-09-17 16:20 | MHC.EDTECH ---
THIS PCT ASSUMED CARE OF PATIENT AT 1500 ,VITALS TAKEN AND PATIENT BELONGING LIST DONE .
[2023-09-17 17:29] LABS: Glucose, Whole Blood 91 mg/dL (60-115)
[2023-09-17] MEDS: Gabapentin 300 MG CAPSULE PO (17:31)
[2023-09-17] MEDS: Enoxaparin Sodium 40 MG/0.4 ML SYRINGE SUBCUT (17:32)
[2023-09-17] MEDS: 0.9 % Sodium Chloride Flush 3 ML SYRINGE IVFLUSH ×2 (17:32→23:47)
--- NOTE | 2023-09-17 17:40 | PC.NURSE ---
no need for cardiac monitoring per BARRY Thorpe
--- NOTE | 2023-09-17 17:40 | PC.NURSE ---
Oxygen Sat 93% on RA ,BARRY Thorpe notified
[2023-09-17 18:53] LABS: Anion Gap 12 (12-20); Blood Urea Nitrogen 23 mg/dL (9-16); Calcium 9.7 mg/dL (8.4-10.2); Carbon Dioxide 31 mmol/L (22-29); Chloride 101 mmol/L (96-108); Creatinine Clr Calc Pharmacy 42.4; Estimated Glomerular Filt Rate 43; Glucose Random 125 mg/dL (60-115); Magnesium 1.9 mg/dL (1.6-2.6); Potassium 4.3 mmol/L (3.3-5.1); Sodium 140 mmol/L (135-145)
--- NOTE | 2023-09-17 20:16 | PM.EVENT ---
Event Note Date of Service: 09/17/23 Event Note: Repeat troponin elevated at 94. She is still experiencing vague left-sided chest heaviness without any associated shortness of breath, lightheadedness, diaphoresis, nausea, vomiting, radiation. Discussed with Dr. Rogelio grigsby, likely related to CHF, not ACS. Not recommending anticoagulation at this time. Cardiology consult placed. Echocardiogram at discretion of Cardiology. Time Spent With Patient Time: Total time managing care of this patient today ____ minutes.
[2023-09-17] MEDS: Albuterol/Iprat 2.5/0.5MG 3 ML AMPUL.NEB INHALE (20:48)
[2023-09-18 05:50] LABS: Alanine Aminotransferase 16 U/L (0-31); Albumin Level 3.9 g/dL (3.5-5.0); Alkaline Phosphatase 55 U/L (39-117); Anion Gap 14 (12-20); Aspartate Amino Transferase 17 U/L (5-31); Bilirubin Total 0.6 mg/dL (0.0-1.0); Blood Urea Nitrogen 24 mg/dL (9-16); Calcium 9.7 mg/dL (8.4-10.2); Carbon Dioxide 28 mmol/L (22-29); Chloride 102 mmol/L (96-108); Creatinine Clr Calc Pharmacy 44.6; Estimated Glomerular Filt Rate 45; Glucose Random 120 mg/dL (60-115); Potassium 4.1 mmol/L (3.3-5.1); Sodium 140 mmol/L (135-145)
[2023-09-18 05:54] LABS: B Type Natriuretic Peptide 1382 pg/mL (<100)
[2023-09-18 06:00] VITALS: BMI 35.3
--- NOTE | 2023-09-18 07:00 | CA_ITS ---
Transthoracic Echocardiogram Patient (Last, First, Middle): Charleen Gallo, Gender: Female Date of : 1945 Age: 78 Procedure Date: 09/18/2023 Procedure Type: Transthoracic Echocardiogram Location: S3E Height: 165.1 cm Weight: 95.71 kg BSA: 2.02 m2 Heart Rate: 86 bpm BP: 114 / 57 mmHg Modular Set Crew Member: SB Referring MD: Levi Cagle MD Symptoms: CHF ,Tn elev Study Quality: Fair but adequate ECG Rhythm: Sinus Conclusions: - Severely increased left ventricular cavity size. There is normal left ventricular wall thickness. The left ventricular systolic function is severely decreased. The visually estimated ejection fraction is between 10-15%. There is severe global hypokinesis. There is paradoxical septal motion consistent with a left bundle branch block. Diastolic function is indeterminate on the basis of available data. - Normal right ventricular cavity size. There is mildly decreased right ventricular systolic function. - The left atrium is mildly dilated. - A bioprosthetic aortic valve is present. The prosthetic aortic valve appears to be functioning normally. - There is mild to moderate mitral valve regurgitation. - There is mild dilatation of the ascending aorta measuring 3.60 cm. - The inferior vena cava is dilated and does not collapse with inspiration. Findings Left Ventricle Severely increased left ventricular cavity size. There is normal left ventricular wall thickness. The left ventricular systolic function is severely decreased. The visually estimated ejection fraction is between 10 15%. There is severe global hypokinesis. There is paradoxical septal motion consistent with a left bundle branch block. Diastolic function is indeterminate on the basis of available data. Right Ventricle Normal right ventricular cavity size. There is mildly decreased right ventricular systolic function. Atria The left atrium is mildly dilated. Aortic Valve A bioprosthetic aortic valve is present. The prosthetic aortic valve appears to be functioning normally. There is no aortic valve stenosis. There is no aortic valve regurgitation. Mitral Valve There is mild mitral annular calcification. There is mild to moderate mitral valve regurgitation. There is no mitral valve stenosis. Pulmonic Valve The pulmonic valve is likely normal. Tricuspid Valve Normal tricuspid valve structure. There is trace tricuspid valve regurgitation. Tricuspid regurgitation envelope is inadequate for calculation of right ventricular systolic pressure. Significantly elevated right atrial pressure. Great Vessels There is mild dilatation of the ascending aorta measuring 3.60 cm. Venous The inferior vena cava is dilated and does not collapse with inspiration. Pericardium/Pleural There is no evidence of pericardial effusion. Prior Study Comparison No prior study available for comparison. Measurements 2D Linear Measurements IVSd: 0.65 0.6-0.9/0.6-1.0 cm LVIDd: 7.46 3.9-5.3/4.2-5.9 cm LVIDd Index: 3.69 2.4-3.2/2.2-3.1 cm/m2 LVIDs: 6.42 2.0-3.6 cm LVPWd: 0.52 0.7-1.1 cm LA Diam: 4.10 2.7-3.8/3.0-4.0 cm LAIDs Index: 2.03 1.5-2.3 cm/m2 LV Mass: 237.61 67-162/88-224 g LV Mass Index: 117.63 43-95/49-115 g/m2 LVOT Diam: 2.50 3.0+(-)1.3 cm 2D Systolic Function EF 4C: 27.70 >55% Mitral Valve E'Lateral: 5.98 E'Medial: 8.70 MR VTI: 1.58 Aortic Valve AoV Pk Derrick: 1.51 AoV Mn Derrick: 1.20 AoV VTI: 0.35 AoV Pk Grad: 9.00 Aov Mn Grad: 6.00 RAMYA Cont.VTI: 1.48 LVOT LVOT Pk Derrick: 0.55 LVOT Mn Derrick: 0.36 LVOT VTI: 0.11 LVOT Pk Grad: 1.00 LVOT Mn Grad: 1.00 LVOT Diam: 2.50 LVOT Area: 4.91 Diastolic Function E'Medial: 8.70 E' Laterial: 5.98 Right Ventricle TAPSE (mm): 14.70 TVS' Derrick: 9.32 Tricuspid Valve RA Press: 15.00 Great Vessels Aorta Ao Asc: 3.60 2.1-3.4 cm Pulmonary Valve PV Pk Derrick: 0.78 Peak PV Grad: 2.00 Updated in Other Vendor System with Status of Final Blade Ochoa MD electronically signed on 09/18/2023 12:21:14 PM with status of Final
[2023-09-18 07:15] VITALS: BP 114/57; PULSE 83; RESP 16; TEMP 36.6; O2SAT 93
[2023-09-18 07:34] LABS: Glucose, Whole Blood 171 mg/dL (60-115)
[2023-09-18] MEDS: Furosemide 40 MG/4 ML VIAL IVPUSH (08:01)
[2023-09-18] MEDS: Acetaminophen 325 MG TABLET 650 MG PO (08:12)
[2023-09-18] MEDS: Insulin Lispro 100 UNIT/ML 3 ML VIAL SUBCUT ×2 (08:23→12:11)
[2023-09-18 08:25] LABS: Troponin-I High Sensitivity 54.6 ng/L (<3.5-17.0)
[2023-09-18] MEDS: 0.9 % Sodium Chloride Flush 3 ML SYRINGE IVFLUSH (09:06)
--- NOTE | 2023-09-18 09:30 | MHC.CM.PN ---
IMM 09/18/23 Female 78 lives with dtr+grdtr. She uses a walker. She requires assist with ADLs. She uses a CPAP. Home making services in place. [facility] is the provider. [facility] referral made for [facility] [employer] consult. A copy of her HCP has been requested. DP home resume homemaking services. Family will provide transport home. The family resource guide and [facility] cares has been given to the patient. DP home with family support, resumption of Homemaker services and family transport.
--- NOTE | 2023-09-18 11:10 | PM.CNCAR ---
History of Present Illness History of Present Illness Date of Service: 09/18/23 Requesting physician: Levi Cagle Chief complaint: CHF exacerbation, chest pressure Narrative: 78-year-old female with complex CV issues including severe cardiomyopathy, previous history of severe aortic valve stenosis status post transcatheter aortic valve replacement in May [address] Brennan and known coronary artery disease with previous ostial right coronary artery stent in September 2022. She said she has done well since the TAVR and her fatigue and shortness of breath was improving but over the last 3 days she has been experiencing fatigue, left-sided chest pressure as well as shortness of breath. Clinically she is in congestive heart failure. She has left bundle-branch block on the EKG with QRS duration of 146 milliseconds. Echocardiography is still showing severe LV dysfunction with significant dyssynchrony. She has been started on IV diuretics at this point. She is denying any chest discomfort currently. High sensitivity troponin levels were 15, 94 and 54. She has currently not on a heparin drip. She is on Plavix monotherapy currently. [facility] Past Medical History Medical History Numbness of left hand Bilateral hand numbness Vitamin B12 deficiency Neuropathy Breast cancer, right breast Sleep apnea COVID-19 GERD (gastroesophageal reflux disease) Daytime sleepiness Family History Family History Father No problems noted. Mother No problems noted. 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 If so, by whom?: No Do you feel safe in your current relationship?: Yes Is there a partner from a previous relationship who is making you feel unsafe now?: No Are you made to feel afraid or neglected: No [facility] Healthcare Practices: pentacostal Advance Directives: No Do you have thoughts of harming others: None Do you have a plan to hurt others: No Plan Recently lost weight without trying: No Nutrition Risks: No Nutritional Risk Patient : No : No Poor oral hygiene: No service: No Current occupational status: retired Meds Allergies Allergy/AdvReac Type Severity Reaction Status Date / Time Penicillins Allergy Intermediate Rash Verified 09/17/23 10:48 aspirin [ASA] Allergy Unknown Verified 09/17/23 10:48 Active Medications: Current Medications Acetaminophen (Acetaminophen 325 Mg Tablet) 650 mg PO Q6H PRN PRN Reason: Pain, Mild (Pain Scale 1-3) Last Admin: 09/18/23 08:12 Dose: 650 mg Albuterol/Ipratropium (Albuterol/Iprat 2.5/0.5mg 3 Ml Ampul.Neb) 3 ml INHALE Q4H PRN PRN Reason: Wheezing Last Admin: 09/17/23 20:48 Dose: 3 ml Atorvastatin Calcium (Atorvastatin Calcium 10 Mg Tablet) 10 mg PO BEDTIME [facility] Carvedilol (Carvedilol 12.5 Mg Tablet) 12.5 mg PO BID@1200,2100 [facility]; Protocol Clopidogrel Bisulfate (Clopidogrel Bisulfate 75 Mg Tablet) 75 mg PO DAILY@1200 [facility] Dextrose (Dextrose 50 % 25 Gm/50 Ml Syringe) 25 gm IVPUSH Q15M PRN; Protocol PRN Reason: per Hypoglycemia Standing Ord. Enoxaparin Sodium (Enoxaparin Sodium 40 Mg/0.4 Ml Syringe) 40 mg SUBCUT Q24H [facility] Last Admin: 09/17/23 17:32 Dose: 40 mg Fluticasone/Vilanterol (Fluticasone/Vilanterol 200/25 Blst.W.Dev) 1 puff INHALE DAILY [facility] Furosemide (Furosemide 40 Mg/4 Ml Vial) 40 mg IVPUSH DAILY [facility]; Protocol Last Admin: 09/18/23 08:01 Dose: 40 mg Gabapentin (Gabapentin 600 Mg Tablet) 600 mg PO BEDTIME [facility] Gabapentin (Gabapentin 300 Mg Capsule) 300 mg PO DAILY@1200 [facility] Glucose (Glucose Gel 15 Gm Gel..Gram.) 15 gm PO Q15M PRN; Protocol PRN Reason: per Hypoglycemia Standing Ord. Insulin Human Lispro (Insulin Lispro 100 Unit/Ml 3 Ml Vial) 0 unit SUBCUT QIDACHS [facility]; Protocol Last Admin: 09/18/23 08:23 Dose: 2 unit Levothyroxine Sodium (Levothyroxine Sodium 88 Mcg Tablet) 88 mcg PO DAILY@0600 [facility] Lidocaine (Lidocaine 4 % Patch Adh..Patch) 1 patch TRANSDERMA DAILY PRN PRN Reason: Pain Melatonin (Melatonin 3 Mg Tablet) 9 mg PO BEDTIME [facility] Multivitamins/Vitamin C (Multivitamin Tablet) 1 tab PO Q48H [facility] Omeprazole (Omeprazole 20 Mg Capsule.Dr) 20 mg PO DAILY@0630 [facility] Ondansetron HCl (Ondansetron Hcl 4 Mg/2 Ml Vial) 4 mg IVPUSH Q8H PRN PRN Reason: Nausea and Vomiting Sacubitril/Valsartan (Sacubitril/Valsartan 1 Tab Tablet) 1 tab PO BID@1200,2100 [facility]; Protocol Senna (Sennosides 8.6 Mg Tablet) 17.2 mg PO BEDTIME PRN PRN Reason: Constipation Simethicone (Simethicone 80 Mg Tab.Chew) 80 mg PO TIDWM [facility] Sodium Chloride (0.9 % Sodium Chloride Flush 3 Ml Syringe) [facility] Last Admin: 09/18/23 09:06 Dose: 3 ml Spironolactone (Spironolactone 25 Mg Tablet) 25 mg PO DAILY@1200 [facility]; Protocol Trazodone HCl (Trazodone Hcl 50 Mg Tablet) 50 mg PO BEDTIME [facility] Home Medications Medication Instructions Recorded Confirmed Last Taken Type acetaminophen 500 mg tablet 500 mg PO Q6H PRN pain 04/26/22 09/17/23 09/16/23 History clopidogrel 75 mg tablet 75 mg PO DAILY@1200 04/26/22 09/17/23 09/16/23 History gabapentin 600 mg tablet 600 mg PO BEDTIME 04/26/22 09/17/23 09/16/23 History levothyroxine 88 mcg tablet 88 mcg PO DAILY@0604/26/22 09/17/23 09/17/23 History metformin 1,000 mg tablet 1,000 mg PO BID@1200,2100 04/26/22 09/17/23 09/16/23 History simvastatin 20 mg tablet 20 mg PO BEDTIME 04/26/22 09/17/23 09/16/23 History spironolactone 25 mg tablet 25 mg PO DAILY@1200 04/26/22 09/17/23 09/16/23 History sacubitril 24 mg-valsartan 26 mg 1 tab PO BID@1200,2100 10/08/22 09/17/23 09/16/23 History tablet (Entresto) carvedilol 25 mg tablet 12.5 mg PO BID@1200,2100 02/25/23 09/17/23 09/16/23 History furosemide 20 mg tablet 20 mg PO BID@0900,1200 02/25/23 09/17/23 09/16/23 History trazodone 50 mg tablet 50 mg PO BEDTIME Sleep 02/25/23 09/17/23 09/16/23 History albuterol sulfate 2.5 mg/3 mL 2.5 mg inhalation Q6H PRN 03/15/23 09/17/23 Unknown History (0.083 %) solution for nebulization shortness of breath or wheezing budesonide-formoterol HFA 160 1 puff inhalation BID 03/15/23 09/17/23 09/16/23 History mcg-4.5 mcg/actuation aerosol inhaler (Symbicort) cyanocobalamin (vitamin B-12) 1,000 mcg sublingual FR@0900 03/15/23 09/17/23 09/16/23 History 1,000 mcg sublingual tablet gabapentin 300 mg capsule 300 mg PO DAILY@119903/15/23 09/17/23 09/16/23 History lidocaine 5 % topical patch 1 patch topical DAILY PRN Pain 03/15/23 09/17/23 Unknown History lidocaine-prilocaine 2.5 %-2.5 % 1 appl topical BID PRN neuropathic 03/15/23 09/17/23 09/16/23 History topical cream pain [id number] acid 0.4 1 tab PO Q OTHER DAY@1200 03/15/23 09/17/23 09/16/23 History mg-lycopene 300 mcg-lutein 250 mcg tablet (Cerovite Senior) pantoprazole 20 mg tablet,delayed 20 mg PO DAILY 03/15/23 09/17/23 09/16/23 History release diclofenac sodium 1 % topical gel 4 g topical BID PRN Pain 09/17/23 09/17/23 Unknown History glipizide 5 mg tablet, extended 5 mg PO DAILY 09/17/23 09/17/23 Unknown History release 24 hr melatonin 10 mg tablet 10 mg PO BEDTIME sleep 09/17/23 09/17/23 09/16/23 History simethicone 80 mg chewable tablet 80 mg PO TIDWM gas 09/17/23 09/17/23 09/16/23 History Physical Exam Vital Signs: Vital Signs: Last Vital Signs Temp 97.9 F 09/18/23 07:15 Pulse 83 09/18/23 07:15 Resp 16 09/18/23 07:15 BP 114/57 L 09/18/23 07:15 Pulse Ox 93 09/18/23 07:15 O2 Del Method Room Air 09/18/23 07:15 O2 Flow Rate 30 09/17/23 11:55 BMI result Body Mass Index 35.3 GENERAL APPEARANCE: in no acute distress, pleasant. NECK: no carotid bruit, + jugular venous distention. SKIN: no suspicious lesions, warm and dry. HEART: no murmurs, regular rate and rhythm. Split 2nd heart sound. LUNGS: Crackles at bases ABDOMEN: soft, nontender. EXTREMITIES: no edema. PERIPHERAL PULSES: equal. NEUROLOGIC: No gross deficits, AAO X 3 Objective Labs and Meds 09/17/23 11:22 09/18/23 05:09 Lab results: Laboratory Results - last 24 hr 09/17/23 09/17/23 09/17/23 11:22 12:02 17:25 WBC 12.5 H RBC 3.66 L Hgb 11.6 L Hct 35.5 L MCV 97.0 MCH 31.7 MCHC 32.7 RDW 13.0 Plt Count 200 MPV 10.5 Immature Gran % (Auto) 0.4 Neut % (Auto) 83.8 H Lymph % (Auto) 8.9 L [place] % (Auto) 3.9 Eos % (Auto) 2.5 Baso % (Auto) 0.5 Lymph # (Auto) 1.1 L [place] # (Auto) 0.5 Eos # (Auto) 0.3 Baso # (Auto) 0.1 Abs Immat Gran (auto) 0.05 H Absolute Neuts (auto) 10.4 H Absolute Nucleated RBC 0.000 Nucleated RBC % (auto) 0.0 PT 11.5 INR 0.9 Sodium 138 Potassium 4.0 Chloride 103 Carbon Dioxide 26 Anion Gap 13 BUN 23 H Creatinine 1.30 Estim Creat Clear Calc 39.8 Estimated GFR 40 POC Glucose 91 Random Glucose 312 H Calcium 9.6 D Magnesium 1.8 Total Bilirubin 0.5 Direct Bilirubin 0.3 AST 27 ALT 23 Alkaline Phosphatase 65 Troponin I High Sens 15.8 D B-Natriuretic Peptide 818 H Total Protein 7.5 Albumin 4.2 Influenza Type A (PCR) NEGATIVE Influenza Type B (PCR) NEGATIVE RSV RNA Qual (PCR) NEGATIVE SARS-CoV-2 RNA (RT-PCR) NEGATIVE 09/17/23 09/18/23 09/18/23 18:33 05:09 07:21 WBC RBC Hgb Hct MCV MCH MCHC RDW Plt Count MPV Immature Gran % (Auto) Neut % (Auto) Lymph % (Auto) [place] % (Auto) Eos % (Auto) Baso % (Auto) Lymph # (Auto) [place] # (Auto) Eos # (Auto) Baso # (Auto) Abs Immat Gran (auto) Absolute Neuts (auto) Absolute Nucleated RBC Nucleated RBC % (auto) PT INR Sodium 140 140 Potassium 4.3 4.1 Chloride 101 102 Carbon Dioxide 31 H 28 Anion Gap 12 14 BUN 23 H 24 H Creatinine 1.22 1.16 Estim Creat Clear Calc 42.4 44.6 Estimated GFR 43 45 POC Glucose 171 H Random Glucose 125 H 120 H Calcium 9.7 9.7 Magnesium 1.9 Total Bilirubin 0.6 Direct Bilirubin AST 17 ALT 16 Alkaline Phosphatase 55 Troponin I High Sens 94.0 H* D 54.6 H* B-Natriuretic Peptide 1382 H Total Protein 7.0 Albumin 3.9 Influenza Type A (PCR) Influenza Type B (PCR) RSV RNA Qual (PCR) SARS-CoV-2 RNA (RT-PCR) Imaging Radiologist's impression: Impressions Chest X-Ray 09/17/23 11:14 IMPRESSION: Mild central vascular prominence without overt failure. No consolidations. Mild basilar atelectasis. Assessment and Plan (1) CHF (congestive heart failure): Status: Acute (2) Cardiomyopathy: Status: Acute (3) S/P TAVR (transcatheter aortic valve replacement): Status: Acute (4) Chest discomfort: Status: Acute Plan 78-year-old female presenting for shortness of breath and left-sided chest discomfort. She had similar symptoms before she had RCA PCI in 2022. EKG showing left bundle-branch block and biomarkers are mildly abnormal. Her BNP is significantly elevated and she is congested by examination. Continue IV diuretics 40 mg daily. She is on carvedilol and Entresto along with spironolactone which should be continued too. Given the fact that she has known coronary disease and previous ostial right coronary artery PCI which is high risk for InStent restenosis and new symptoms, we will be transferring her to [facility] for diagnostic angiography. She has some background of hemorrhagic cystitis and hematuria in the past. I would avoid heparin currently till the diagnostic angiogram is done. She is clinically stable otherwise. She should be started on baby aspirin for now after a loading dose. Thank you for allowing me to participate in the care of your patient. Please feel free to contact me if you have any questions. Procedures Date of Service Date of Service: 09/18/23
--- NOTE | 2023-09-18 11:12 | P.PNIM_ITS ---
Subjective Subjective Date of Service: 09/18/23 Interval History: This history was taken in Turkmen from the patient. Dyspnea improved. Chest heaviness resolved. Review of Systems Review of Systems: Yes all other systems are reviewed and are negative Physical Exam 2 Vital Signs: Vital Signs: Last Vital Signs Temp 97.9 F 09/18/23 07:15 Pulse 83 09/18/23 07:15 Resp 16 09/18/23 07:15 BP 114/57 L 09/18/23 07:15 Pulse Ox 93 09/18/23 07:15 O2 Del Method Room Air 09/18/23 07:15 O2 Flow Rate 30 09/17/23 11:55 BMI result Body Mass Index 35.3 Gen: in no acute distress HEENT: sclera anicteric, moist mucus membranes Neck: supple, JVD Lungs: diminished Heart: regular rate and rhythm, no murmurs Abd: soft, non-tender, non-distended Ext: no edema Skin: warm/well-perfused Neuro: alert and oriented x3, no focal findings Psych: appropriate affect Objective Data Active Medications Acetaminophen (Acetaminophen 325 Mg Tablet) 650 mg PO Q6H PRN PRN Reason: Pain, Mild (Pain Scale 1-3) Last Admin: 09/18/23 08:12 Dose: 650 mg Documented By: LIDIA Albuterol/Ipratropium (Albuterol/Iprat 2.5/0.5mg 3 Ml Ampul.Neb) 3 ml INHALE Q4H PRN PRN Reason: Wheezing Last Admin: 09/17/23 20:48 Dose: 3 ml Documented By: SPRNIG Atorvastatin Calcium (Atorvastatin Calcium 10 Mg Tablet) 10 mg PO BEDTIME [facility] Carvedilol (Carvedilol 12.5 Mg Tablet) 12.5 mg PO BID@1200,2100 [facility]; Protocol Clopidogrel Bisulfate (Clopidogrel Bisulfate 75 Mg Tablet) 75 mg PO DAILY@1200 [facility] Dextrose (Dextrose 50 % 25 Gm/50 Ml Syringe) 25 gm IVPUSH Q15M PRN; Protocol PRN Reason: per Hypoglycemia Standing Ord. Enoxaparin Sodium (Enoxaparin Sodium 40 Mg/0.4 Ml Syringe) 40 mg SUBCUT Q24H [facility] Last Admin: 09/17/23 17:32 Dose: 40 mg Documented By: AMEE Fluticasone/Vilanterol (Fluticasone/Vilanterol 200/25 Blst.W.Dev) 1 puff INHALE DAILY [facility] Furosemide (Furosemide 40 Mg/4 Ml Vial) 40 mg IVPUSH DAILY [facility]; Protocol Last Admin: 09/18/23 08:01 Dose: 40 mg Documented By: LIDIA Gabapentin (Gabapentin 600 Mg Tablet) 600 mg PO BEDTIME [facility] Gabapentin (Gabapentin 300 Mg Capsule) 300 mg PO DAILY@1200 [facility] Glucose (Glucose Gel 15 Gm Gel..Gram.) 15 gm PO Q15M PRN; Protocol PRN Reason: per Hypoglycemia Standing Ord. Insulin Human Lispro (Insulin Lispro 100 Unit/Ml 3 Ml Vial) 0 unit SUBCUT QIDACHS [facility]; Protocol Last Admin: 09/18/23 08:23 Dose: 2 unit Documented By: LIDIA Levothyroxine Sodium (Levothyroxine Sodium 88 Mcg Tablet) 88 mcg PO DAILY@0600 [facility] Lidocaine (Lidocaine 4 % Patch Adh..Patch) 1 patch TRANSDERMA DAILY PRN PRN Reason: Pain Melatonin (Melatonin 3 Mg Tablet) 9 mg PO BEDTIME [facility] Multivitamins/Vitamin C (Multivitamin Tablet) 1 tab PO Q48H [facility] Omeprazole (Omeprazole 20 Mg Capsule.Dr) 20 mg PO DAILY@0630 [facility] Ondansetron HCl (Ondansetron Hcl 4 Mg/2 Ml Vial) 4 mg IVPUSH Q8H PRN PRN Reason: Nausea and Vomiting Sacubitril/Valsartan (Sacubitril/Valsartan 1 Tab Tablet) 1 tab PO BID@1200,2100 [facility]; Protocol Senna (Sennosides 8.6 Mg Tablet) 17.2 mg PO BEDTIME PRN PRN Reason: Constipation Simethicone (Simethicone 80 Mg Tab.Chew) 80 mg PO TIDWM [facility] Sodium Chloride (0.9 % Sodium Chloride Flush 3 Ml Syringe) 3 ml IVFLUSH QSHIFT [facility] Last Admin: 09/18/23 09:06 Dose: 3 ml Documented By: LIDIA Spironolactone (Spironolactone 25 Mg Tablet) 25 mg PO DAILY@1200 [facility]; Protocol Trazodone HCl (Trazodone Hcl 50 Mg Tablet) 50 mg PO BEDTIME [facility] Labs 09/17/23 11:22 09/18/23 05:09 Labs: Laboratory Results - last 24 hr 09/17/23 09/17/23 09/17/23 11:22 12:02 17:25 MCV 97.0 MCH 31.7 MCHC 32.7 RDW 13.0 Plt Count 200 MPV 10.5 Immature Gran % (Auto) 0.4 Neut % (Auto) 83.8 H Lymph % (Auto) 8.[address] [place] % (Auto) 3.9 Eos % (Auto) 2.5 Baso % (Auto) 0.5 Lymph # (Auto) 1.[address] [place] # (Auto) 0.5 Eos # (Auto) 0.3 Baso # (Auto) 0.1 Abs Immat Gran (auto) 0.05 H Absolute Neuts (auto) 10.4 H Absolute Nucleated RBC 0.000 Nucleated RBC % (auto) 0.0 PT 11.5 INR 0.9 Anion Gap 13 Estim Creat Clear Calc 39.8 Estimated GFR 40 POC Glucose 91 Random Glucose 312 H Calcium 9.6 D Magnesium 1.8 Total Bilirubin 0.5 Direct Bilirubin 0.3 AST 27 ALT 23 Alkaline Phosphatase 65 Troponin I High Sens 15.8 D B-Natriuretic Peptide 818 H Total Protein 7.5 Albumin 4.2 Influenza Type A (PCR) NEGATIVE Influenza Type B (PCR) NEGATIVE RSV RNA Qual (PCR) NEGATIVE SARS-CoV-2 RNA (RT-PCR) NEGATIVE 09/17/23 09/18/23 09/18/23 18:33 05:09 07:21 MCV MCH MCHC RDW Plt Count MPV Immature Gran % (Auto) Neut % (Auto) Lymph % (Auto) [place] % (Auto) Eos % (Auto) Baso % (Auto) Lymph # (Auto) [place] # (Auto) Eos # (Auto) Baso # (Auto) Abs Immat Gran (auto) Absolute Neuts (auto) Absolute Nucleated RBC Nucleated RBC % (auto) PT INR Anion Gap 12 14 Estim Creat Clear Calc 42.4 44.6 Estimated GFR 43 45 POC Glucose 171 H Random Glucose 125 H 120 H Calcium 9.7 9.7 Magnesium 1.9 Total Bilirubin 0.6 Direct Bilirubin AST 17 ALT 16 Alkaline Phosphatase 55 Troponin I High Sens 94.0 H* D 54.6 H* B-Natriuretic Peptide 1382 H Total Protein 7.0 Albumin 3.9 Influenza Type A (PCR) Influenza Type B (PCR) RSV RNA Qual (PCR) SARS-CoV-2 RNA (RT-PCR) Assessment and Plan (1) CHF (congestive heart failure): Status: Acute Plan d2 78yo F with HFrEF, DM2, hypothyroidism, VAMSI, CAD, NICM, severe aortic stenosis s/p TAVR, hx breast CA presenting with 1d of severe dyspnea, L-sided chest tightness placed on BiPAP briefly in ED due to respiratory distress from CHF exacerbation acute/chronic HFrEF - diurese with IV furosemide, monitor lytes/I+O, Cardiology consult, update TTE - continue Entresto, spironolactone, carvedilol Tn-I elevation - suspected due to CHF; consult Cardiology, TTE pending CAD - continue carvedilol, atorvastatin, clopidogrel DM2 with hpyerglycemia - thee-dose lispro; hold OHGs DM neuropathy - gabapentin VAMSI - CPAP at bedtime COPD? - continue maintenance inhalers hypothyroidism - continue LT4 VTE ppx - LMWH dispo - PT eval In my clinical judgment, the patient requires continued inpatient hospitalization for the following reasons: IV diuresis Total time managing care of this patient today: 40 minutes. Quality Stroke Does the patient have a stroke diagnosis?: No VTE Prior VTE?: No VTE Risk Level:: Medical - moderate - high VTE Device Contraindication: Treatment Not Indicated VTE Drug Contraindication: N/A - Med Ordered
[2023-09-18 11:23] VITALS: BP 130/63; PULSE 88; RESP 18; O2SAT 93
[2023-09-18] MEDS: Fluticasone/Vilanterol 200/25 BLST.W.DEV 1 PUFF INHALE (11:36)
[2023-09-18] MEDS: Albuterol/Iprat 2.5/0.5MG 3 ML AMPUL.NEB INHALE (11:38)
[2023-09-18 11:40] VITALS: PULSE 84; RESP 18
[2023-09-18 12:10] LABS: Glucose, Whole Blood 159 mg/dL (60-115)
[2023-09-18] MEDS: Spironolactone 25 MG TABLET PO (12:12)
[2023-09-18] MEDS: Multivitamin TABLET 1 TAB PO (12:12)
[2023-09-18] MEDS: carvediloL 12.5 MG TABLET PO (12:12)
[2023-09-18] MEDS: Levothyroxine Sodium 88 MCG TABLET PO (12:12)
[2023-09-18] MEDS: Simethicone 80 MG TAB.CHEW PO (12:12)
[2023-09-18] MEDS: Clopidogrel Bisulfate 75 MG TABLET PO (12:13)
[2023-09-18] MEDS: Sacubitril/Valsartan 24/26 1 TAB TABLET PO (12:13)
[2023-09-18] MEDS: Gabapentin 300 MG CAPSULE PO (12:13)
[2023-09-18] MEDS: Aspirin 325 MG TABLET PO (12:13)
--- NOTE | 2023-09-18 12:18 | PM.DS ---
DS: Providers Provider Date of Service: 09/18/23 Date of admission: 09/17/23 14:31 Date of discharge: 09/18/23 Primary care physician: BE Chavez Consults: 09/18/23 07:24 Consult to Cardiology Routine Consulting Provider: [facility] [place] [facility] Reason for consultation: CHF, Tn elevation DS: Diagnosis Discharge Diagnosis (1) CHF (congestive heart failure): Status: Acute (2) Cardiomyopathy: Status: Acute (3) S/P TAVR (transcatheter aortic valve replacement): Status: Acute (4) Chest discomfort: Status: Acute (5) Acute on chronic HFrEF (heart failure with reduced ejection fraction): Status: Acute DS: Summary Hospital Course Hospital Course: From the history and physical by the admitting hospitalist, BARRY Reynoso, 09/17/23: 78 year old female with history of HfrEF, insulin dependent type 2 diabetes, hypothyroidism, jonny on cpap, CAD, nonischemic cardiomyopathy, severe aortic stenosis s/p TAVR on plavix, h/o breast cancer 1988 presented to the ED earlier today for evaluation of dyspnea. Reports worsening dyspnea with exertion ongoing for several days associated with left sided chest tightness, pleuritic in nature. Reports some SOB at rest as well. Has had some improvement with albuterol inhaler (no recorded history of asthma/COPD). Reports symptoms abruptly worsened this morning. States she does not fluid or salt restrict. No fevers, chills, st, congestion, abd pain, n/v/d, cough, lightheadedness, palpiations, or retrosternal chest pressure. On arrival, patient tachypenic, tripodding per ED provider. Vitals otherwise stable. WBC 12.5, stable normocytic anemia. Creat increased from baseline at 1.30, baseline around 1, BUN 23. Lytes normal. Trop 15, BNP >800. Negative for flu, influenza, rsv. CXR shows mild central vascular prominence without overt failure. No consolidations, and mild bibasilar atelectasis. Given 40mg IV lasix in ED and was placed on bipap in ED with great improvement in symptoms. She is currently resting laying flat without any dyspnea. She is complaining of intermittent cramping in the BLE which is new. She was admitted to the hospitalist service on telemetry and diuresed with IV furosemide. Hs-Tn-I 15.8->94->54.6. Cardiology was consulted. She had similar symptoms leading to RCA PCI in 2022. She has chronic LBBB. Given known CAD and previous ostial RCA PCI which is high risk for in-stent restnosis, she was transferred to [facility] [place] for diagnostic angiography. Heparin was not started due to hemorrhagic cystitis/hematuria in the past. Time Attestation Discharge coordination time: Greater than 30 minutes Quality: Safe Use of Opioids Does Pt have an Active Cancer Diagnosis on the Problem List?: No Quality: Stroke Does the patient have a stroke diagnosis?: No Physical Exam Vital Signs: Vital Signs: Last Vital Signs Temp 97.9 F 09/18/23 07:15 Pulse 84 09/18/23 11:40 Resp 18 09/18/23 11:40 BP 130/63 09/18/23 11:23 Pulse Ox 93 09/18/23 11:23 O2 Del Method Room Air 09/18/23 11:23 O2 Flow Rate 30 09/17/23 11:55 BMI result Body Mass Index 35.3 Gen: in no acute distress HEENT: sclera anicteric, moist mucus membranes Neck: supple, JVD Lungs: diminished Heart: regular rate and rhythm, no murmurs Abd: soft, non-tender, non-distended Ext: no edema Skin: warm/well-perfused Neuro: alert and oriented x3, no focal findings Psych: appropriate affect DS: Data Data Completed and Pending Completed studies during hospitalization [Text1]: Laboratory Results WBC 12.5 X10*3/uL (4.8-10.8) H 09/17/23 11:22 RBC 3.66 X10*6/uL (4.20-5.50) L 09/17/23 11:22 Hgb 11.6 g/dl (12.0-16.0) L 09/17/23 11:22 Hct 35.5 % (37.0-47.0) L 09/17/23 11:22 MCV 97.0 fL (80.0-98.0) 09/17/23 11:22 MCH 31.7 pg (27.0-33.0) 09/17/23 11:22 MCHC 32.7 g/dl (31.0-35.0) 09/17/23 11:22 RDW 13.0 % (11.0-16.0) 09/17/23 11:22 Plt Count 200 X10*3/uL (160-400) 09/17/23 11:22 MPV 10.5 fL (9.4-12.3) 09/17/23 11:22 Immature Gran % (Auto) 0.4 % (0.0-0.4) 09/17/23 11:22 Neut % (Auto) 83.8 % (45-73) H 09/17/23 11:22 Lymph % (Auto) 8.9 % (20-40) L 09/17/23 11:22 [place] % (Auto) 3.9 % (2-11) 09/17/23 11:22 Eos % (Auto) 2.5 % (0-4) 09/17/23 11:22 Baso % (Auto) 0.5 % (0-2) 09/17/23 11:22 Lymph # (Auto) 1.1 X10*3/uL (1.2-4.9) L 09/17/23 11:22 [place] # (Auto) 0.5 X10*3/uL (0.1-1.2) 09/17/23 11:22 Eos # (Auto) 0.3 X10*3/uL (0.0-0.4) 09/17/23 11:22 Baso # (Auto) 0.1 X10*3/uL (0.0-0.2) 09/17/23 11:22 Abs Immat Gran (auto) 0.05 X10*3/uL (0.00-0.03) H 09/17/23 11:22 Absolute Neuts (auto) 10.4 x10*3/uL (2.0-8.3) H 09/17/23 11:22 Absolute Nucleated RBC 0.000 X10*3/uL (0.0-0.012) 09/17/23 11:22 Nucleated RBC % (auto) 0.0 /100WBC (0.0-0.2) 09/17/23 11:22 PT 11.5 SEC (11.1-13.3) 09/17/23 11:22 INR 0.9 (0.9-1.1) 09/17/23 11:22 Sodium 140 mmol/L (135-145) 09/18/23 05:09 Potassium 4.1 mmol/L (3.3-5.1) 09/18/23 05:09 Chloride 102 mmol/L (96-108) 09/18/23 05:09 Carbon Dioxide 28 mmol/L (22-29) 09/18/23 05:09 Anion Gap 14 (12-20) 09/18/23 05:09 BUN 24 mg/dL (9-16) H 09/18/23 05:09 Creatinine 1.16 mg/dL (0.5-1.4) 09/18/23 05:09 Estim Creat Clear Calc 44.6 09/18/23 05:09 Estimated GFR 45 09/18/23 05:09 POC Glucose 159 mg/dL (60-115) H 09/18/23 11:10 Random Glucose 120 mg/dL (60-115) H 09/18/23 05:09 Calcium 9.7 mg/dL (8.4-10.2) 09/18/23 05:09 Magnesium 1.9 mg/dL (1.6-2.6) 09/17/23 18:33 Total Bilirubin 0.6 mg/dL (0.0-1.0) 09/18/23 05:09 Direct Bilirubin 0.3 mg/dL (0.0-0.5) 09/17/23 11:22 AST 17 U/L (5-31) 09/18/23 05:09 ALT 16 U/L (0-31) 09/18/23 05:09 Alkaline Phosphatase 55 U/L (39-117) 09/18/23 05:09 Troponin I High Sens 54.6 ng/L (<3.5-17.0) H* 09/18/23 05:09 B-Natriuretic Peptide 1382 pg/mL (<100) H 09/18/23 05:09 Total Protein 7.0 g/dL (6.5-8.0) 09/18/23 05:09 Albumin 3.9 g/dL (3.5-5.0) 09/18/23 05:09 Influenza Type A (PCR) NEGATIVE (Negative) 09/17/23 12:02 Influenza Type B (PCR) NEGATIVE (Negative) 09/17/23 12:02 RSV RNA Qual (PCR) NEGATIVE (Negative) 09/17/23 12:02 SARS-CoV-2 RNA (RT-PCR) NEGATIVE (Negative) 09/17/23 12:02 Impressions Chest X-Ray 09/17/23 11:14 IMPRESSION: Mild central vascular prominence without overt failure. No consolidations. Mild basilar atelectasis. Discharge Plan Discharge Anticipated Discharge Date/Time: 09/18/23 11:43 Patient Disposition: [facility] Discharge Diagnosis: CHF exacerbation, cardiomyopathy, coronary artery disease, s/p TAVR Referrals: Lupe Moralez FNP [Primary Care Provider] - 1 Week Discharge Medications: New enoxaparin 40 mg/0.4 mL Syringe 40 mg subcut Q24H Qty: 1 0RF acetaminophen 325 mg Tablet 650 mg PO Q6H PRN (Reason: Pain, Mild (Pain Scale 1-3)) Qty: 1 0RF aspirin 81 mg Tablet,Chewable 81 mg PO DAILY Qty: 1 0RF furosemide 10 mg/mL Solution 40 mg IVPUSH DAILY Qty: 1 0RF Protocol: Hold for SBP< HOLD for SBP < : 90 insulin lispro [Admelog U-100 Insulin lispro] 100 unit/mL Solution See Protocol subcut QIDACHS Qty: 1 0RF Protocol: Insulin Correction Scale Less than or equal to 110 ---- Give (units): 0 111 to 150 Give (units): 0 151 to 200 Give (units): 2 201 to 250 Give (units): 4 251 to 300 Give (units): 6 301 to 350 Give (units): 8 Greater than 350 Give (units): 10 Call MD if Blood Glucose > : 350 Continued (DME) bra, mastectomy Crystals Qty: 1 0RF Rx Instructions: As Directed lidocaine-prilocaine 2.5-2.5 % cream 1 appl topical BID PRN (Reason: neuropathic pain) pantoprazole 20 mg tablet,delayed release (DR/EC) 20 mg PO DAILY lidocaine 5 % adhesive patch,medicated 1 patch topical DAILY PRN (Reason: Pain) gabapentin 300 mg capsule 300 mg PO DAILY@1200 cyanocobalamin (vitamin B-12) 1,000 mcg tablet, sublingual 1,000 mcg sublingual FR@0900 Cerovite Senior 0.4 mg-300 mcg- 250 mcg tablet 1 tab PO Q OTHER DAY@1200 budesonide-formoterol [Symbicort] 160-4.5 mcg/actuation HFA aerosol inhaler 1 puff INHALATION BID albuterol sulfate 2.5 mg /3 mL (0.083 %) solution for nebulization 2.5 mg inhalation Q6H PRN (Reason: shortness of breath or wheezing) simethicone 80 mg tablet,chewable 80 mg PO TIDWM diclofenac sodium 1 % gel 4 g topical BID PRN (Reason: Pain) melatonin 10 mg tablet 10 mg PO BEDTIME simvastatin 20 mg tablet 20 mg PO BEDTIME clopidogrel 75 mg tablet 75 mg PO DAILY@1200 spironolactone 25 mg tablet 25 mg PO DAILY@1200 Hold Instructions: Resume on 03/19/23. levothyroxine 88 mcg tablet 88 mcg PO DAILY@0600 gabapentin 600 mg tablet 600 mg PO BEDTIME acetaminophen 500 mg tablet 500 mg PO Q6H PRN (Reason: pain) carvedilol 25 mg tablet 12.5 mg PO BID@1200,2100 Entresto 24-26 mg tablet 1 tab PO BID@1200,2100 trazodone 50 mg tablet 50 mg PO BEDTIME Held glipizide 5 mg tablet extended release 24hr 5 mg PO DAILY Hold Instructions: Resume on 10/03/23. metformin 1,000 mg tablet 1,000 mg PO BID@1200,2100 Hold Instructions: Resume on 10/03/23. Discontinued furosemide 20 mg tablet 20 mg PO BID@0900,1200 Hold Instructions: Resume on 03/19/23. Discharge Orders: Discharge Order (Routine); Ordered 09/18/23 Ordered By: Levi Cagle Diet: Diabetic diet Activity on Discharge: As tolerated Stand Alone Forms: Patient Portal Discharge page Care Plan Goals: cardiac health Health Concerns: CHF exacerbation, cardiomyopathy, coronary artery disease, s/p TAVR Plan of Treatment: transfer to [facility] for cardiac catheterization Assessment: See Discharge Summary.
--- NOTE | 2023-09-18 12:28 | MHC.CM.PN ---
IMM 09/18/23 S/P Echo patient transfer to [facility] via ALS for a Cardiac Catheterization. [facility] Transitions of pediatric acute care unit nurse, Madeline was notified of the ALS TX to [facility] today for cardiac cath.
== END 2023-09-18 12:59 | disposition short-term general hospital (02) | DRG 292 ==
LOC: HO.ED 14:09 → HO.EDOVER 14:39 → HO.S3 15:44
PROVIDERS: Admitting Provider Physician Assistant; Emergency Provider Emergency Medicine Emergency Medical Services; PCP Registered Nurse; Visit Provider Family Medicine
DX: I50.23 Acute on chronic systolic (congestive) heart failure (principal); I42.8 Other cardiomyopathies; D64.9 Anemia, unspecified; G47.33 Obstructive sleep apnea (adult) (pediatric); R25.2 Cramp and spasm; J44.9 Chronic obstructive pulmonary disease, unspecified; E11.42 Type 2 diabetes mellitus with diabetic polyneuropathy; I25.10 Atherosclerotic heart disease of native coronary artery without angina pectoris; E03.9 Hypothyroidism, unspecified; E11.65 Type 2 diabetes mellitus with hyperglycemia; Z95.2 Presence of prosthetic heart valve; Z20.822 Contact with and (suspected) exposure to COVID-19; Z85.3 Personal history of malignant neoplasm of breast; Z79.02 Long term (current) use of antithrombotics/antiplatelets; Z79.4 Long term (current) use of insulin; Z79.84 Long term (current) use of oral hypoglycemic drugs; Z79.890 Hormone replacement therapy; Z79.899 Other long term (current) drug therapy
CPT/HCPCS: 0241U; 36415; 71045; 80048; 80053; 80076; 82947; 83735; 83880; 84484; 85025; 85610; 93005; 93306; 99285; J1650; J1940

== ENCOUNTER 2023-09-17 14:31 | Outpatient (BNV) | payer OTHER, SELFPAY | END 2023-09-18 07:00 | PROVIDERS: Admitting Provider Physician Assistant; Emergency Provider Emergency Medicine Emergency Medical Services; PCP Registered Nurse; Visit Provider Internal Medicine Cardiovascular Disease | DX: I34.0 Nonrheumatic mitral (valve) insufficiency (principal) | CPT/HCPCS: 93306 ==

== ENCOUNTER → 2023-09-17 14:31 | Outpatient (BNV) | payer OTHER, SELFPAY | PROVIDERS: Admitting Provider Physician Assistant; Emergency Provider Emergency Medicine Emergency Medical Services; PCP Registered Nurse; Visit Provider Physician Assistant | DX: I50.21 Acute systolic (congestive) heart failure (principal); I42.9 Cardiomyopathy, unspecified; E11.65 Type 2 diabetes mellitus with hyperglycemia; Z95.2 Presence of prosthetic heart valve; R07.89 Other chest pain | CPT/HCPCS: 99223; 99238; 99499 ==

== ENCOUNTER → 2023-09-17 14:31 | Outpatient (BNV) | payer OTHER, SELFPAY | PROVIDERS: Admitting Provider Physician Assistant; Emergency Provider Emergency Medicine Emergency Medical Services; PCP Registered Nurse; Visit Provider Internal Medicine Cardiovascular Disease | DX: I50.9 Heart failure, unspecified (principal); I42.9 Cardiomyopathy, unspecified; Z95.2 Presence of prosthetic heart valve; R07.89 Other chest pain | CPT/HCPCS: 99223 ==

== ENCOUNTER 2023-09-29 14:50 | Outpatient (AMB) | payer OTHER, SELFPAY ==
--- NOTE | 2023-09-29 14:53 | MHC.OFFVIS ---
Intake Vital Signs 09/29/23 15:09 Height 5 ft 5 in Weight 201 lb 2 oz BMI 33.5 BP 112/60 Blood Pressure Location Lt brachial Position Sitting Pulse 79 Pulse Source Pulse Oximeter Pulse Oximetry (%) 98 Oxygen Delivery Method Room Air Intake Visit Reasons: f/u appt-Conf Intake Note: Patient presents for CPAP f/u. would like a bigger mask around the nose Allergies Penicillins Allergy (Intermediate, Verified 09/29/23 15:02) Rash HPI HPI Comments History of Present Illness Details 77 y/o female patient presents with her daughter for follow up of insomnia, VAMSI on CPAP. The CPAP compliance and therapy response (06/16/23-09/13/23) reviewed with the patient. She is on APAP [id number]. Usage days 74% average usage hours 5 hours 10 min. The max presssure was 9.4 and the residual AHI was 1.1/hr She is on trazodone 50 mg, and melatonin 10 mg, and it helps her sleep better. Pt had aortic valve replacement done in March. Pt states that she still feels tired, and not really refreshed in the morning. [facility] Medical History Numbness of left hand Bilateral hand numbness Vitamin B12 deficiency Neuropathy Breast cancer, right breast Sleep apnea COVID-19 GERD (gastroesophageal reflux disease) Daytime sleepiness Surgical History History of carpal tunnel release H/O right mastectomy History of bilateral oophorectomies History of cholecystectomy History of appendectomy Family History Father No problems noted. Mother No problems noted. 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) Unable to assess alcohol history related to: Unknown Alcohol intake: never Patient Tobacco Use Status: Never used Tobacco Second Hand Smoke Exposure: No service: No Current occupational status: retired Review of Systems Const All systems reviewed & are unremarkable except as noted in HPI and below ENT Reports Normal hearing present Neuro Reports Normal hearing present Physical Exam Vital Signs: Last Vital Signs Pulse 79 09/29/23 15:09 BP 112/60 09/29/23 15:09 Pulse Ox 98 09/29/23 15:09 Oxygen Delivery Method Room Air 09/29/23 15:09 BMI result Body Mass Index 33.5 Const General: cooperative Nutritional Appearance: obese Orientation/consciousness: patient oriented x3 Limitations: language barrier (Kyrgyz speaaking only) Neck Neck: Yes full ROM and Yes supple Resp Effort & Inspection: normal respiratory effort and able to speak in complete sentences Neuro General: patient oriented x3 and moves all extremities Cranial nerves: Yes Bilaterally intact EOM present, Yes Normal facial strength present, Yes Midline tongue present, Yes Symmetric palate elevation present, Yes Normal hearing present, Yes Ability to bilaterally rotate head present and Yes Ability to bilaterally elevate shoulders present Cognition (Neuro): normal cognition Motor exam (neuro): 5/5 motor strength present throughout Psych Appearance: grossly normal Mental Status: mental status grossly normal Speech and movement: Normal speech and movement present Affect: normal affect Attitude: cooperative Assessment & Plan Assessment & Plan (1) VAMSI on CPAP: Comment: Mild degree of sleep apnea. The total AHI was 7/hr and oxygen concetta was 76%. Code(s): G47.33 - Obstructive sleep apnea (adult) (pediatric); Z99.89 - Dependence on other enabling machines and devices (2) Insomnia: Code(s): G47.00 - Insomnia, unspecified Plan Continue to use APAP [id number] as patient experiences good clinical effect, breathing disorder during sleep much improve.d Advised patient to continue to take melatonin to 10 mg and trazodone 50 mg qHS for sleep. Sleep hygiene education provided. Advised patient to try routine sleep schedule. Coding Level of Care Code Est Pt Level 3 (58838) Diagnoses VAMSI on CPAP G47.33; Z99.89 Insomnia G47.00
[2023-09-29 15:09] VITALS: BP 112/60; PULSE 79; O2SAT 98; BMI 33.5
== END 2023-09-29 15:23 | disposition home or self-care (01) ==
PROVIDERS: PCP Registered Nurse; Visit Provider Nurse Practitioner Family
DX: G47.33 Obstructive sleep apnea (adult) (pediatric) (principal); Z99.89 Dependence on other enabling machines and devices; G47.00 Insomnia, unspecified
CPT/HCPCS: 99213

== ENCOUNTER → 2023-09-29 14:50 | Outpatient (BNVA) | payer OTHER, SELFPAY | PROVIDERS: PCP Registered Nurse; Visit Provider Nurse Practitioner Family | DX: G47.33 Obstructive sleep apnea (adult) (pediatric) (principal); G47.00 Insomnia, unspecified; Z99.89 Dependence on other enabling machines and devices | CPT/HCPCS: 99212 ==

== ENCOUNTER 2023-10-06 12:39 | Outpatient (REF) | payer OTHER, SELFPAY ==
--- NOTE | ~2023-10-06 | MM_ITS ---
EXAMINATION: MM SCREENING DIGITAL BREAST TOMOSYNTHESIS, BILATERAL CLINICAL INFORMATION: Screening. Asymptomatic. The patient is status post right mastectomy. COMPARISON: Mammography: This study is compared with the prior mammogram [id number]. TECHNIQUE: Digital breast tomosynthesis is performed in both the craniocaudal and mediolateral oblique views along with computer-aided detection (CAD). Synthesized 2D images are generated from the tomosynthesis. FINDINGS: There are scattered areas of fibroglandular density (ACR BI-RADS breast composition Category b). There are no significant masses, abnormal calcifications, or other abnormalities. There is a tissue marker present in the upper outer quadrant of the left breast from prior benign percutaneous biopsy. There is architectural changes in the upper outer quadrant of the left breast from prior surgery. MM/MM tomosynthesis screening LT IMPRESSION: No mammographic evidence of malignancy. ASSESSMENT: BI-RADS BI-RADS 2 - Benign Findings RECOMMENDATION: Routine annual mammography screening. 1 year F/U This examination should not preclude the clinical evaluation of a suspicious palpable abnormality. This patient's information was entered into a reminder system with a target due date for their next mammogram.
== END 2023-10-06 12:40 | disposition home or self-care (01) ==
LOC: HO.MAMMO 12:39
PROVIDERS: PCP Registered Nurse; Visit Provider Registered Nurse
DX: Z12.31 Encounter for screening mammogram for malignant neoplasm of breast (principal)
CPT/HCPCS: 77063; 77067

== ENCOUNTER → 2023-10-06 12:45 | Outpatient (BNV) | payer OTHER, SELFPAY | PROVIDERS: PCP Registered Nurse; Visit Provider Radiology Diagnostic Radiology | DX: Z12.31 Encounter for screening mammogram for malignant neoplasm of breast (principal) | CPT/HCPCS: 77063; 77067 ==

== ENCOUNTER 2023-10-15 13:47 | Outpatient (AMB) | payer OTHER, SELFPAY ==
--- NOTE | 2023-10-15 14:02 | A.OFFVIS_ITS ---
Intake Intake Visit Reasons: 6m follow up Intake Note: Patient presents today for a Follow up Meds: None Allergies to Antibiotic: Penicillin Blood Thinner: Aspirin Welt Rander Required: Yes Welt Rander Language: Utilization Supervisor Name: Tee Garcia, DESMOND/HILARIA Span Information Interpreted: non-clinical & clinical Aviation Project Engineer: Aviation Project Engineer Present Accompanied by: Daughter Allergies Penicillins Allergy (Intermediate, Verified 10/15/23 14:05) Rash HPI HPI Comments History of Present Illness Details 10/15/23---Charleen is a 78-year-old female who presents today to the [facility] for a follow-up. 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 She is here with her daughter. She states she is doing better with her bladder control. She has been doing the kegel exercises, she wears a pad daily but states that there is minimal leakage that is noted. She denies irritative voiding symptoms. She is happy with the bladder control at this time. Review of chart: 04/14/2023? 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 She is followed today for a cystoscopy procedure. She was hospitalized for acute kidney injury, and she was referred to the urology for gross hematuria at that time. Patient was seen by me in consultation for gross hematuria on 03/17/2023 and at that time, she was treated for urinary tract infection. She complains of having on and off urine leakage associated with coughing. She states that her her diabetic medication was changed as it may have contributed to the UTI. I reviewed the abdomen/pelvis CT results from 03/15/2023 revealed no stone or hydronephrosis. I reviewed the urine culture results from 03/11/2023 revealed Escherichia coli 50,000 to 100,000 cfu/mL. Cystoscopy procedure: Cystoscopy normal findings: no suspicious bladder lesion found. Evaluation today?UA? Leukocytes: 15 Hugh; blood: negative. Discussed Kegel?s exercises with the patient. Follow up in 6 months. 10/15/23--PLAN: The patient is doing well at this time and will follow-up on a p.r.n. basis [facility] Medical History Numbness of left hand Bilateral hand numbness Vitamin B12 deficiency Neuropathy Breast cancer, right breast Sleep apnea COVID-19 GERD (gastroesophageal reflux disease) Daytime sleepiness Surgical History History of carpal tunnel release H/O right mastectomy History of bilateral oophorectomies History of cholecystectomy History of appendectomy Family History Father No problems noted. Mother No problems noted. 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) Unable to assess alcohol history related to: Unknown Alcohol intake: never Patient Tobacco Use Status: Never used Tobacco Second Hand Smoke Exposure: No service: No Current occupational status: retired Review of Systems Const All systems reviewed & are unremarkable except as noted in HPI and below Reports no additional complaints Eyes Reports no additional complaints ENT Reports no additional complaints Card Denies dyspnea Resp Denies cough and Denies dyspnea GI Reports no additional complaints Reports no additional complaints Musc Reports no additional complaints Skin/Breast Denies rash and Denies unusual bruising Neuro Reports no additional complaints Psych Reports no additional complaints Endo Reports no additional complaints Michele/Lymph Reports no additional complaints Aller/Immun Reports no additional complaints Office Procedures Post Void Residual Post Residual Void Post Void Residual (PVR): 0 [id number] Void Residual by ultrasound Results AMB Urinalysis, Automated UA Leukoctes 0 Hugh/uL Last Edit by Apolonia Hernandez MA on 10/15/23 14:27 UA Nitrite Negative Last Edit by Apolonia Hernandez MA on 10/15/23 14:27 UA Urobilinogen 0.2 mg/dL Last Edit by Apolonia Hernandez MA on 10/15/23 14:27 UA Protein 0 mg/dL Last Edit by Apolonia Hernandez MA on 10/15/23 14:27 UA pH 6.5 Last Edit by Apolonia Hernandez MA on 10/15/23 14:27 UA Blood 0 Sim/uL Last Edit by Apolonia Hernandez MA on 10/15/23 14:27 UA Specific [place] 1.005 Last Edit by Apolonia Hernandez MA on 10/15/23 14 :27 UA Ketone Negative Last Edit by Apolonia Hernandez MA on 10/15/23 14:27 UA Bilirubin 0 mg/dL Last Edit by Apolonia Hernandez MA on 10/15/23 14:27 UA Glucose 0 mg/dL Last Edit by Apolonia Hernandez MA on 10/15/23 14:27 Results Reviewed Results Reviewed: Laboratory Last Values Urine pH (Auto) 6.5 10/15/23 14:25 Specific [place] (Auto) 1.005 10/15/23 14:25 Urine Protein (Auto) 0 mg/dL 10/15/23 14:25 Glucose (UA)(Auto) 0 mg/dL 10/15/23 14:25 Urine Ketones (Auto) Negative 10/15/23 14:25 Urine Blood (Auto) 0 Sim/uL 10/15/23 14:25 Urine Nitrite (Auto) Negative 10/15/23 14:25 Urine Bilirubin (Auto) 0 mg/dL 10/15/23 14:25 Urine Urobilinogen (Auto) 0.2 mg/dL 10/15/23 14:25 Leukocyte Esterase (Auto) 0 Hugh/uL 10/15/23 14:25 Assessment & Plan Assessment & Plan (1) MAMADOU (stress urinary incontinence, female): Code(s): N39.3 - Stress incontinence (female) (male) Plan The patient is doing well at this time and will follow-up on a p.r.n. basis Orders: Orders AMB Post Void Residual by ultrasound Today N39.3 - Stress incontinence (female) (male) AMB Urinalysis Automated Today Z13.9 - Encounter for screening, unspecified Patient Instructions: The patient had an opportunity to ask questions regarding treatment plan. All questions were answered. Imaging, Laboratory studies and physical exam results were discussed and reviewed in detail. No major barriers to understanding were identified. The patient expressed understanding and agreement with the above treatment plan. The patient is aware they should contact our office by phone for worsening of their current condition or the appearance of new symptoms. Compliance is encouraged with any medications and followup testing that is ordered. It is a privilege to be allowed the opportunity to participate in the urologic care of your patient. If you have any questions or concerns regarding treatment for the above conditions please do not hesitate to contact me. The office telephone contact is [phone]. This note is constructed in part using voice recognition software. While every effort has been made to ensure accuracy student accounts coordinator errors may have been included. Yours sincerely, Lucy Gilbert MD Coding Level of Care Code Est Pt Level 3 (28099) Diagnoses MAMADOU (stress urinary incontinence, female) N39.3 CPT Codes Post Residual Void - PVR CPT Code: 03475-Xjlt Void Residual by ultrasound ([id number])
== END 2023-10-15 15:14 | disposition home or self-care (01) ==
PROVIDERS: Visit Provider Urology
DX: N39.3 Stress incontinence (female) (male) (principal); Z13.9 Encounter for screening, unspecified
CPT/HCPCS: 99213

== ENCOUNTER → 2023-10-15 13:47 | Outpatient (BNVA) | payer OTHER, SELFPAY | PROVIDERS: Visit Provider Urology | DX: N39.3 Stress incontinence (female) (male) (principal) | CPT/HCPCS: 51798; 81003; 99212 ==

== ENCOUNTER 2023-12-23 10:04 | Outpatient (REF) | payer OTHER, SELFPAY ==
[2023-12-23 15:04] LABS: Alanine Aminotransferase 12 U/L (0-31); Albumin Level 4.1 g/dL (3.5-5.0); Alkaline Phosphatase 84 U/L (39-117); Anion Gap 15 (12-20); Aspartate Amino Transferase 16 U/L (5-31); Bilirubin Direct 0.2 mg/dL (0.0-0.5); Bilirubin Total 0.5 mg/dL (0.0-1.0); Blood Urea Nitrogen 26 mg/dL (9-16); Carbon Dioxide 28 mmol/L (22-29); Chloride 103 mmol/L (96-108); Cholesterol 116 mg/dL (<200); Estimated Glomerular Filt Rate 35; Glucose Random 89 mg/dL (60-115); HDL Cholesterol 41 mg/dL (>40); LDL Cholesterol Calculated 54 mg/dL (<100); Potassium 4.3 mmol/L (3.3-5.1); Sodium 142 mmol/L (135-145); Total Protein 7.2 g/dL (6.5-8.0); Triglycerides 108 mg/dL (<150)
== END 2023-12-23 10:05 | disposition home or self-care (01) ==
LOC: HO.CHCLDS 10:04
PROVIDERS: Visit Provider Registered Nurse
DX: I50.9 Heart failure, unspecified (principal); N18.31 Chronic kidney disease, stage 3a
CPT/HCPCS: 36415; 80048; 80061; 80076

== ENCOUNTER 2024-03-30 16:26 | Outpatient (REF) | payer OTHER, SELFPAY | END 2024-03-30 16:27 | disposition home or self-care (01) | LOC: HO.CHCLNP 16:26 | PROVIDERS: Visit Provider Internal Medicine | DX: R30.9 Painful micturition, unspecified (principal); N76.0 Acute vaginitis | CPT/HCPCS: 0352U; 87086; 87491; 87591 ==

== ENCOUNTER 2024-06-14 12:50 | Outpatient (REF) | payer OTHER, SELFPAY ==
[2024-06-14 14:08] LABS: MANUAL DIFF FLAG NO
[2024-06-14 14:12] LABS: Basophils Percent Auto 0.6 % (0-2); Eosinophils Absolute Auto 0.2 X10*3/uL (0.0-0.4); Hematocrit 30.8 % (37.0-47.0); Hemoglobin 9.7 g/dl (12.0-16.0); Imm Gran Abs Auto 0.01 X10*3/uL (0.00-0.03); Imm Gran Pct Auto 0.1 % (0.0-0.4); Lymphocytes Absolute Auto 1.6 X10*3/uL (1.2-4.9); Lymphocytes Percent Auto 23.3 % (20-40); Mean Corpuscular HGB Conc 31.5 g/dl (31.0-35.0); Mean Corpuscular Hemoglobin 30.3 pg (27.0-33.0); Mean Corpuscular Volume 96.3 fL (80.0-98.0); Mean Platelet Volume 10.8 fL (9.4-12.3); Monocytes Absolute Auto 0.4 X10*3/uL (0.1-1.2); Monocytes Percent Auto 6.3 % (2-11); Neutrophils Absolute Auto 4.6 x10*3/uL (2.0-8.3); Neutrophils Percent Auto 66.7 % (45-73); Platelet Count 199 X10*3/uL (160-400); Red Cell Distribution Width 13.3 % (11.0-16.0)
[2024-06-14 14:37] LABS: Creatinine Urine 54.88 mg/dL; Microalbumin Urine < 5.0 mg/L
[2024-06-14 14:41] LABS: Alanine Aminotransferase 22 U/L (0-31); Albumin Level 4.1 g/dL (3.5-5.0); Anion Gap 11 (12-20); Aspartate Amino Transferase 25 U/L (5-31); Bilirubin Total 0.6 mg/dL (0.0-1.0); Blood Urea Nitrogen 23 mg/dL (9-16); Calcium 9.8 mg/dL (8.4-10.2); Carbon Dioxide 28 mmol/L (22-29); Chloride 104 mmol/L (96-108); Cholesterol 112 mg/dL (<200); Estimated Glomerular Filt Rate 46; Glucose Random 135 mg/dL (60-115); HDL Cholesterol 38 mg/dL (>40); LDL Cholesterol Calculated 41 mg/dL (<100); Sodium 139 mmol/L (135-145); Total Protein 7.1 g/dL (6.5-8.0); Triglycerides 167 mg/dL (<150)
[2024-06-14 14:57] LABS: Alkaline Phosphatase 81 U/L (39-117); TSH reflex Free T4 1.44 uIU/mL (0.32-4.0)
[2024-06-14 15:04] LABS: Folate 15.3 ng/mL (> or = 4.0); Vitamin B12 486 pg/mL (200-900)
== END 2024-06-14 12:51 | disposition home or self-care (01) ==
LOC: HO.CHCLDS 12:50
PROVIDERS: Visit Provider Registered Nurse
DX: Z00.00 Encounter for general adult medical examination without abnormal findings (principal); E11.9 Type 2 diabetes mellitus without complications
CPT/HCPCS: 36415; 80053; 80061; 82570; 82607; 82746; 84443; 85025

== ENCOUNTER 2024-09-16 13:54 | Outpatient (REF) | payer OTHER, SELFPAY ==
--- OUTSIDE RECORDS SUMMARY | 2024-09-16 13:58 | XMS_ITS | Encounter Summary ---
Author Organization [employer] Address [address] [facility] [address] [place] [address] Care Team Providers Care Film Rental Clerk Name Role Phone ClarissaLupe alegria BE Primary Care Provider [phone] Perry Quintero MD Unavailable [phone] Reason for Visit * Reason Comments Foot Pain Encounter Details Date Type Department Care Team ([facility] st Contact Info) Description 09/16/2024 2:00 PM EST Office Visit [facility] [address] [place] [address] Gout involving toe of right foot, unspecified cause, unspecified chronicity (Primary Dx); Anemia, unspecified type Social History Tobacco Use Types Packs/Day Years Used Date Smoking Tobacco: Never Passive Smoke Exposure: Never Smokeless Tobacco: Never Tobacco Cessation:Counseling Given: Not Answered Alcohol Use Standard Drinks/Week Comments Never 0 (1 standard drink = 0.6 oz pur e alcohol) Depression Answer Date Recorded Patient Health Questionnaire-9 Score 4 02/09/2024 Patient Health Questionnaire-9 Score 4 02/09/2024 Last PHQ-9: Questionnaire Data Not on file 0 02/09/2024 Housing Stability Answer Date Recorded What is your housing situation today? I have pranav sam 10/06/[address] you li ve. Do you have problems with any of the following? None of the above 10/06/2023 Food Insecurity Answer Date Recorded Within the past 12 months, y ou worried that your food would run out before you got money to buy more: Never True 10/06/2023 Within the past 12 months,th e food you bought just didn't last and you didn't have enough money to get more: Never True 11/2023 Transportation Answer Date Recorded In the past 12 months, has l ack of transportation kept you from medical appts, meetings, work or from getting things needed for daily living? No 10/06/2023 Utilities Answer Date Recorded In the past 12 months, has t he electric, gas, oil or water company threatened to shut off services in your home? No 10/06/2023 Depression Answer Date Recorded Patient Health Questionnaire-2 Score 0 02/09/2024 Comments Unknown Sex and Gender Information Value Date Recorded Sex Assigned at Female 06/03/2022 10:40 AM EDT Legal Sex Female 10:40 AM EDT Gender Identity Female 06/03/2022 10:40 AM EDT Sexual Orientation Straight 06/03/2022 10 :40 AM EDT documented as of this encounter Last Filed Vital Signs Vital Sign Reading Time Taken Comments Blood Pressure 131/67 09/16/2024 1:31 PM EST Pulse 93 09/16/2024 1:31 PM EST Temperature 36.4 ??C (97.5 ??F) 09/16/2024 1:31 PM ES T Respiratory Rate 18 09/16/2024 1:31 PM EST Oxygen Saturation - - Inhaled Oxygen Concentration - - Weight 87.5 kg (193 lb) 09/16/2024 1:31 PM EST Height 160 cm (5' 3 ) 09/16/2024 1:31 PM EST Body Mass Index 34.19 09/16/2024 1:31 PM EST documented in this encounter Miscellaneous Notes * Assessment & Plan Note - Deana Doan - 09/16/2024 1:49 PM ESTAssociated Problem(s): Anemia Etiology unknown. Seen in [place] on 09/09/24 and had Hgb of 4. Got transfusion of about 6 units of blood on 09/11/24. Requesting records from [place]. -ordered CBC -has follow-up tomorrow. * Assessment & Plan Note - Deana Doan - 09/16/2024 1:47 PM ESTAssociated Problem(s): Gout involving toe of right foot Likely gout of toe on right foot. Unknown cause. -prescribed predniSONE (Deltasone) 20 MG -ordered uric acid levels Avoid foods high in uric acid including -Organ and glandular meats -Red meat. Limit serving sizes of beef, michel and pork. -Seafood: anchovies, shellfish, sardines and tuna -High-purine vegetables: such as asparagus, spinach -Alcohol. Beer, distilled liquors, moderate amount of wine is good -Sugary foods and beverages, sweetened cereals, bakery goods, candies. Limit consumption of naturally sweet fruit juices. Best Foods for a Gout Diet -Low-fat and nondairy fat products, such as yogurt and skim milk. -Fresh fruits and vegetables. -Nuts, peanut butter, and grains. -Fat and oil. -Potatoes, rice, bread, and pasta. -Eggs (in moderation) -Meats like fish, chicken, and red meat are fine in moderation (around 4 to 6 ounces per day). documented in this encounter Plan of Treatment Upcoming Encounters Date Type Department Care Team (Late st Contact Info) Description 09/17/2024 1:45 PM EST Office Visit [facility] [address] [place] [address] Lupe Moralez FNP [address] [place] [address] Scheduled Orders Name Type Priority Associated Diagnoses Orde r Schedule Uric acid Lab Routine Gout involving toe of right foot, unspecified cause, unspecified chronicity Expected: 09/16/2024 (Approximate), Expires: 09/16/2025 CBC auto differential Lab Routine Anemia, unspecified type Expected: 09/16/2024, Expires: 09/16/2025 documented as of this encounter Visit Diagnoses Diagnosis Gout involving toe of right foot, unspecified cause, unspecified chronicity- Primary Anemia, unspecified type documented in this encounter Additional Health Concerns Assessment Noted Time PHQ-9 Depression Total Score: 4 02/09/20 24 10:42 AM EDT documented as of this encounter Care Teams Film Rental Clerk Relationship Specialty Start Date End Date Lupe Moralez FNP [address] [place] [address] PCP - General Family Medicine 04/16/22 Perry Quintero MD [address] [place] [address] Cardiology 06/14/24 documented as of this encounter
--- OUTSIDE RECORDS SUMMARY | 2024-09-16 13:58 | XMS_ITS | Encounter Summary ---
Author Organization [employer] Address [address] [facility] [address] [place] [address] Care Team Providers Care Rn Dialysis Name Role Phone Lupe Moralez Primary Care Provider [phone] Perry Quintero MD Unavailable [phone] Reason for Visit * Reason Onset Date Comments Medication Question 08/24/2024 Encounter Details Date Type Department Care Team ([facility] st Contact Info) Description 08/24/2024 Telephone [facility] [address] [place] [address] Lupe Moralez FNP [address] [place], [place] [id number] Medication Question Social History Tobacco Use Types Packs/Day Years Used Date Smoking Tobacco: Never Passive Smoke Exposure: Never Smokeless Tobacco: Never Alcohol Use Standard Drinks/Week Comments Never 0 [...] AM EDT documented as of this encounter Miscellaneous Notes * Telephone Encounter - Maeve Gunn RN - 08/25/2024 3:10 PM EST TC placed to pt with S leaf binner New #[id number] to inquire on the request for Glipizide XL 5 MG 24 hr tablet. Pt confirms that this used to be prescribed by PCP Lupe Moralez and pt chart confirmsthat this medication was prescribed back in 2022. Pt states that her blood sugar levels have been progressively getting higher for the past few weeks. Only blood sugar numbers given of late were 178 a nd 185. Pt advised of upcoming appt with Lupe Moralez on 09/17 and these concerns can be addressed.Pt further advised however that if blood sugar numbers remain above 350 with symptoms to call back the office. Pt stated understanding and had no further questions or concerns at this time. * Telephone Encounter - Fortino Collins - 08/24/2024 3:48 PM EST Tc from pt requesting glipiZIDE XL (Glucotrol XL) 5 MG 24 hr tablet because her blood sugar is currently 178 and 179. documented in this encounter Plan of Treatment Upcoming Encounters Date Type Department Care Team ([facility] Contact Info) Description 09/16/2024 2:00 PM EST Office Visit [facility] [address] [place] [address] Gout involving toe of right foot, unspecified cause, unspecified chronicity (Primary Dx); Anemia, unspecified type 09/17/2024 1:45 PM EST Office Visit [facility] [address] [place] [address] Lupe Moralez FNP [address] [place] [address] documented as of this encounter Visit Diagnoses Not on filedocumented in this encounter Additional Health Concerns Assessment Noted Time PHQ-9 Depression Total Score: 4 02/09/20 24 10:42 AM EDT documented as of this encounter Care Teams Rn Dialysis Relationship Specialty Start Date End Date Lupe Moralez FNP [address] [place] [address] PCP - General Family Medicine 04/16/22 Perry Quintero MD [address] [place] [address] Cardiology 06/14/24 documented as of this encounter
--- OUTSIDE RECORDS SUMMARY | 2024-09-16 13:58 | XMS_ITS | Clinical Summary ---
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 Recombinant 05/07/2022 Zoster, live 11/28/2014 Social History Tobacco Use Types Packs/Day Years [...] Orientation Straight 06/03/2022 10 :40 AM EDT Last Filed Vital Signs Vital Sign Reading Time Taken Comments Blood Pressure 131/67 09/16/2024 1:31 PM EST Pulse 93 09/16/2024 1:31 PM EST Temperature 36.4 ??C (97.5 ??F) 09/16/2024 1:31 PM ES T Respiratory Rate 18 09/16/2024 1:31 PM EST Oxygen Saturation 98% 08/27/2024 10:46 AM EST Inhaled Oxygen Concentration - - Weight 87.5 kg (193 lb) 09/16/2024 1:31 PM EST Height 160 cm (5' 3 ) 09/16/2024 1:31 PM EST Body Mass Index 34.19 09/16/2024 1:31 PM EST Plan of Treatment Upcoming Encounters Date Type Department Care Team (Late st Contact Info) Description 09/16/2024 2:00 PM EST Office Visit [facility] [address] [place] [address] Gout involving toe of right foot, unspecified cause, unspecified chronicity (Primary Dx); Anemia, unspecified type 09/17/2024 1:45 PM EST Office Visit [facility] [address], [place] [phone] Lupe Moralez, SHOT PEEN OPERATOR [address], [place] [phone] Health Maintenance Due Date Last Done Comments Dental Oral Exam 1944 Dental Prophylaxis 1944 Diabetes: Foot Exam 1954 Eye Exam 1954 Alcohol/Substance Use Screening 1956 RSV Patients and Patients Aged 60 years or older (1 - 1-dose 75+ series) 2019 Zoster Vaccines (3 of 3) 07/02/2022 05/07/2022, 11/03 COVID-19 Vaccine ( season) 2024 07/03/2021, 10/24/2020, 10/02/2020 Influenza Vaccine (#1) 2024 2, 04/16/2022, 2019, Additional history exists Diabetes: Hemoglobin A1C 09/14/2024 024, 02/09/2024, 10/06/2023, Additional history exists SDOH Screening 10/05/2024 10/06/2023 Depression Screening 02/08/2025 02/09/2024, 02/09/20 24 Dental X-Ray: Bitewings 02/18/2025 02/18/2024 DTaP/Tdap/Td Vaccines (1 - Tdap) 06/14/2025 Postponed from 1963 (Other Patient Reasons) Diabetes: Urine Protein Screening 06/14/2025 06/14/2024 Lipid Panel 06/14/2025 06/14/2024, 05/2 08/2023, 11/01/2022, Additional history exists Tobacco Screening 08/27/2025 08/27/2024 Dental X-Ray: Full Mouth 02/18/2027 02/18/2024 Pneumococcal Vaccine: 50+ Years Completed 2019, 09/27/2015 HIB Vaccines Aged Out No longer eligi ble based on patient's age to complete this topic HPV Vaccines Aged Out No longer eligi ble based on patient's age to complete this topic Hepatitis A Vaccines Aged Out No long er eligible based on patient's age to complete this topic Hepatitis B Vaccines Aged Out No long er eligible based on patient's age to complete this topic IPV Vaccines Aged Out No longer eligi ble based on patient's age to complete this topic Meningococcal Vaccine Aged Out No yocasta cornelia eligible based on patient's age to complete this topic RSV under 20 months Aged Out No longe r eligible based on patient's age to complete this topic Rotavirus Vaccines Aged Out No longer eligible based on patient's age to complete this topic Procedures Procedure Name Priority Date/Time Associated Diagnosis Comments ALBUMIN, RANDOM URINE W/CREATININE Routine 06/14/2024 12:58 PM EST Type 2 diabetes mellitus without complication, without long-term current use of insulin ([facility]) Healthcare maintenance LIPID PANEL, STANDARD Routine 06/14/2024 12:51 PM EST Type 2 diabetes mellitus without complication, without long-term current use of insulin ([facility]) Healthcare maintenance POCT GLYCATED HEMOGLOBIN, TOTAL Routine 06/14/2024 12:01 PM EST Type 2 diabetes mellitus without complication, without long-term current use of insulin ([facility]) INTRAORAL - COMPLETE SERIES OF RADIOGRAPHIC IMAGES Routine 02/18/2024 2:00 PM EDT from Last 3 Months or Most Recently Relevant to Health Maintenance Results * Albumin, Random Urine W/Creatinine (06/14/2024 12:58 PM EST) Creatinine, Urine 54.88 mg/dL [facility] Microalbumin Urine <5.0 mg/L [facility] Microalbum Creatinine Ratio Ur TNP <30 ug/mg cr [facility] Comment:Unable to calculate albumin/creatinine ratio due to lowmicroalbumin or creatinine result. Urine 06/14/2024 12:5 8 PM EST 06/14/2024 2:08 PM EST us Lupe Moralez SHOT PEEN OPERATOR LAB URINE ORDERABLES Final Res ult Performing Organization Address [facility] Co de Phone Number [facility] [address] [place] [phone] * (ABNORMAL) Lipid Panel, Standard (06/14/2024 12:51 PM EST) Triglycerides 167(H) <150 mg/dL [facility] Comment:Desirable Triglyceri de: less than 150 mg/dLBorderline High Triglyceride 150-199 mg/dLHigh Triglyceride: 200-499 mg/dLVery High Triglyceride: greater than or equal to 5OO mg/dL Cholesterol 112 <200 mg/dL [facility] Comment:Desirable Cholestero l: less than 200 mg/dLBorderline High Cholesterol: 200-239 mg/dLHigh Cholesterol: greater than 239 mg/dL LDL Cholesterol Calculated 41 <100 mg/dL [facility] Comment:Desirable LDL: less than 100 mg/dLNear Optimal/Above Optimal LDL: 110- 129 mg/dLBorderline High LDL: 130-159 mg/dLHigh LDL: 160-189 mg/dLVery High LDL: greater than or equal to 190 mg/dL HDL Cholesterol 38(L) >40 mg/dL [facility] Comment:Desirable HDL: great er than 40 mg/dL Note: This HDL assay may give artificially low results in patients with liver disease. Blood Venous blood specimen / Unknown 06/14/2024 12:51 PM EST 06/14/2024 2:03 PM EST us Lupe Moralez SHOT PEEN OPERATOR LAB BLOOD ORDERABLES Final Res ult [facility] [address] [place] [address] [phone] * (ABNORMAL) POCT HGB A1C (06/14/2024 12:01 PM EST) Hemoglobin A1C 6.2(A) 4.0 - 6.0 % QC Media Lot # [id number] Lot# Expiration Date [id number] Blood 06/14/2024 12:0 1 PM EST Lupe Moralez SHOT PEEN OPERATOR POINT OF CARE TEST ENTER/EDIT ORDERABLES Final Result from Last 3 Months or Most Recently Relevant to Health Maintenance Insurance [facility] [employer]URANCE C/O [employer] [place] [id number] DENTAL - [facility] [employer] Care Teams Beef Trimmer Relationship Specialty Start Date End Date Lupe Moralez FNP [address] [place] [address] PCP - General Family Medicine 04/16/22 Perry Quintero MD [address] [place] [address] Cardiology 06/14/24
--- OUTSIDE RECORDS SUMMARY | 2024-09-16 13:58 | XMS_ITS | Data Portability ---
Author Organization [employer] Address [address] [place] [address] Care Team Providers Care Rn Clinical Documentation Specialist Name Role Phone [facility] Referring Provider HIM CCA OTHER Assessment Encounter Date Assessment Date Assessment LastModified by Organization Details LastModified Time 12/23/2022 12/23/2022 77 YOF with hx of COPD and asthma being seen for cough. ON exam scattered end expiratory wheeze. -Improved with duoneb Given 40mg PO prednisone and started on pred burst for 4 days She would benefit from a Neb machine if that can be arranged [email or web address] Not available 12/23/2022 19:19:52 Plan of Treatment Reminders Order Date Submit Date Provider Last Modified By Organization Details Last Modified Time Details Appointments None recorded. Lab None recorded. Referral None recorded. Procedures None recorded. Surgeries None recorded. Imaging None recorded. Medication Orders prednisone 20 mg tablet 2022 023 [facility], [address] [place] [address], [id number], 3 18:51:06 prednisone 20 mg tablet [address] [facility] [facility] 5 [facility], [address] [place] [address], [id number], 3 18:38:05 ipratropium 0.5 mg-albutero l 3 mg (2.5 mg base)/3 mL nebulizatio n soln 2022 023 [facility], [address] [place] [address], [id number], 3 18:51:10 albuterol sulfate HFA 90 mcg/actuati on aerosol inhaler 2022 023 [id number], [address] [facility], [place], [place], [id number], 3 19:15:11 albuterol sulfate 2.5 mg/3 mL (0.083 %) solution for nebulizatio n 2022 023 [facility] Not available 3 19:15:01 Patient TargetsNo targets recorded. Patient InstructionsNo instructions recorded. Reason for Referral None Reported. Medical Equipment None Reported. Allergies Allergen ID Allergen Name Allergen Category Reaction Reaction Severity Criticality Documentation Date Start Date Code Code System Note Provider Name and Address Organization Details Recorded Time 9114 Product containin g penicilli n and antibioti c (product) medicatio n Not available Not available Not available 06/01/2024 66374 05 SNOMED Not Available [facility] - production 4 03:49:11 Medications Name Sig Start Date Stop Date Status Note LastModified by Organization Details LastModified Time medbox status USE DIRECTED active Not Available Not Available No t Available carvedilol 25 mg tablet TAKE 1 TABLET BY MOUTH TWICE DAILY AT NOON AND IN THE EVENING active Not Available Not Available Not Available gabapentin 600 mg tablet TAKE 1 TABLET BY MOUTH EVERY EVENING active Not Available Not Available No t Available ipratropium 0.5 mg-albuterol 3 mg (2.5 mg base)/3 mL nebulization soln INHALE 1 AMPULE USING A NEBULIZER FOUR TIMES DAILY active Not Available Not Available No t Available trazodone 50 mg tablet TAKE 1/2-1 TABLET AT BEDTIME NEEDED FOR SLEEP active Not Available Not Available No t Available glipizide 10 mg tablet TAKE 1 TABLET BY MOUTH TWICE DAILY AT NOON AND IN THE EVENING active Not Available Not Available Not Available prednisone 20 mg tablet TAKE 2 TABLETS BY MOUTH EVERY DAY FOR FOUR DAYS active Not Available Not Available No t Available isosorbide mononitrate ER 30 mg tablet,exten ded release 24 hr TAKE 1 TABLET BY MOUTH EVERYDAY AT NOON active Not Available Not Available No t Available amlodipine 2.5 mg tablet TAKE 1 TABLET BY MOUTH EVERY EVENING active Not Available Not Available No t Available clopidogrel 75 mg tablet TAKE 1 TABLET BY MOUTH EVERYDAY AT NOON active Not Available Not Available No t Available aspirin 81 mg tablet,delay ed release TAKE 1 TABLET BY MOUTH EVERY DAY active Not Available Not Available No t Available acetaminophe n 500 mg tablet TAKE 1 TABLET BY MOUTH EVERY 6 HOURS NEEDED FOR PAIN active Not Available Not Available No t Available spironolacto ne 25 mg tablet TAKE 1 TABLET BY MOUTH EVERYDAY AT NOON active Not Available Not Available No t Available lidocaine-pr ilocaine 2.5 %-2.5 % topical cream APPLY TO THE AFFECTED AREA(S) 1-4 TIMES PER DAY NEEDED FOR PAIN active Not Available Not Available No t Available pantoprazole 20 mg tablet,delay ed release TAKE 1 TABLET BY MOUTH EVERY MORNING BEFORE BREAKFAST. DO NOT BREAK, CRUSH, DISSOLVE OR CHEW active Not Available Not Available No t Available ketorolac 0.5 % eye drops INSTILL 1 DROP TWICE DAILY IN THE OPERATIVE EYE, 2 DAYS BEFORE SURGERY DIRECTED active Not Available Not Available No t Available oxycodone-ac etaminophen 5 mg-325 mg tablet TAKE 1 TABLET BY MOUTH EVERY 6 HOURS NEEDED FOR PAIN active Not Available Not Available No t Available levothyroxin e 88 mcg tablet TAKE 1 TABLET BY MOUTH EVERY MORNING active Not Available Not Available No t Available Deep Sea Nasal 0.65 % spray aerosol active Not Available Not Available Not Available simvastatin 20 mg tablet TAKE 1 TABLET BY MOUTH EVERY EVENING active Not Available Not Available No t Available Gas Relief (simethicone ) 80 mg chewable tablet CHEW 1 TABLET BY MOUTH EVERY 6 HOURS NEEDED FOR GAS active Not Available Not Available No t Available metformin 1,000 mg tablet TAKE 1 TABLET BY MOUTH TWICE DAILY AT NOON AND IN THE EVENING active Not Available Not Available Not Available lidocaine 5 % topical patch APPLY 1 PATCH TOPICALLY TO SKIN, LEAVE ON FOR 12 HOURS AND OFF FOR 12 HOURS DIRECTED NEEDED FOR PAIN active Not Available Not Available No t Available gabapentin 300 mg capsule TAKE 1 CAPSULE BY MOUTH EVERYDAY AT NOON (WITH 600 MG TABLET IN THE EVENING) active Not Available Not Available No t Available omeprazole 20 mg capsule,giuseppe yed release TAKE 1 CAPSULE BY MOUTH EVERY MORNING WITH FOOD active Not Available Not Available No t Available cyanocobalam in (vit B-12) 1,000 mcg sublingual tablet TAKE 1 TABLET BY MOUTH ONCE WEEKLY FRIDAY MORNING (DISSOLVE UNDER THE TONGUE) active Not Available Not Available No t Available furosemide 20 mg tablet TAKE 1 TABLET BY MOUTH EVERYDAY AT NOON active Not Available Not Available No t Available lorazepam 1 mg tablet TAKE 1 TABLET BY MOUTH AT BEDTIME NEEDED FOR SLEEP active Not Available Not Available No t Available clotrimazole 1 % topical cream APPLY TOPICALLY TO SKIN AND TOENAILS ONCE DAILY FOR 12 WEEKS active Not Available Not Available No t Available glipizide 5 mg tablet active Not Available Not Available No t Available Ventolin HFA 90 mcg/actuatio n aerosol inhaler INHALE 2 PUFFS BY MOUTH EVERY 4 HOURS NEEDED FOR WHEEZING active Not Available Not Available No t Available ciclopirox 0.77 % topical gel APPLY TOPICALLY ONCE DAILY active Not Available Not Available N ot Available Alcohol Prep Pads USE TO CLEAN SKIN NEEDED active Not Available Not Available No t Available Symbicort 160 mcg-4.5 mcg/actuatio n HFA aerosol inhaler INHALE 1 PUFF BY MOUTH TWICE DAILY IN THE MORNING AND AT BEDTIME RINSE MOUTH AFTER USING. active Not Available Not Available No t Available FreeStyle Lite Strips TEST BLOOD SUGAR TWICE DAILY AND NEEDED active Not Available Not Available No t Available FreeStyle Horseheads Lite kit USE DIRECTED active Not Available Not Available No t Available diclofenac 1 % topical gel APPLY 4 GRAMS TOPICALLY TO AFFECTED AREA(S) TWICE DAILY DIRECTED active Not Available Not Available Not Available melatonin 5 mg tablet TAKE 2 TABLETS BY MOUTH AT BEDTIME NEEDED active Not Available Not Available No t Available blood pressure test kit-large cuff USE TO CHECK BLOOD PRESSURE EVERY DAY AND NEEDED FOR SYMPTOMS active Not Available Not Available No t Available Cerovite Senior 0.4 mg-300 mcg-250 mcg tablet TAKE 1 TABLET BY MOUTH EVERY OTHER DAY AT NOON active Not Available Not Available No t Available TRUEplus Lancets 33 gauge TEST BLOOD SUGAR TWICE DAILY AND NEEDED active Not Available Not Available No t Available Farxiga 10 mg tablet active Not Available Not Available No t Available Entresto 24 mg-26 mg tablet TAKE 1 TABLET BY MOUTH TWICE DAILY AT NOON AND IN THE EVENING active Not Available Not Available Not Available High Potency Multivitamin (w-iron) 9 mg iron-400 mcg tablet TAKE 1 TABLET BY MOUTH EVERY DAY active Not Available Not Available No t Available Paxlovid 300 mg (150 mg x 2)-100 mg tablets in a dose pack TAKE 1 TABLET (150 MG) OF NIRMATRELVI R & 1 TABLET (100 MG) OF RITONAVIR BY MOUTH TWICE DAILY FOR 5 DAYS active Not Available Not Available N ot Available Vitals Date Recorded Body weight Respiratory rate Body temperature Heart rate Body height Oxygen saturation Oxygen saturation in Arterial blood by Pulse oximetry Systolic blood pressure Diastolic blood pressure Provider Name and Address Organization Details Last Updated DateTime 2 943797. 792 g 18 /min 98.5 [degF] 74 /min 165.1 cm 96 % 96 % 101 mm[Hg] 68 mm[Hg] Not Available [employer] 2 16:36:35 Date Recorded Heart rate Body temperature Oxygen saturation Oxygen saturation in Arterial blood by Pulse oximetry Body weight Respiratory rate Systolic blood pressure Diastolic blood pressure Provider Name and Address Organization Details Last Updated DateTime 3 66 /min 98.4 [degF] 95 % 95 % 72034.2 56 g 16 /min 109 mm[Hg] 48 mm[Hg] Not Available [employer] 3 18:59:59 Date Recorded Body weight Oxygen saturation Oxygen saturation in Arterial blood by Pulse oximetry Heart rate Body temperature Respiratory rate Systolic blood pressure Diastolic blood pressure Provider Name and Address Organization Details Last Updated DateTime 3 83869.3 6 g 97 % 97 % 80 /min 97.7 [degF] 14 /min 96 mm[Hg] 52 mm[Hg] Not Available [employer] 3 18:35:18 Social History None recorded. Functional Status None recorded. Mental Status None recorded. Family History Nothing Reported. Medical History No medical history recorded. Gynecological HistoryNo gynecological history recorded. Obstetrics History GPAL:G 0 P 0 0 0 0 Past Encounters Encounter ID Performer Location Encounter Start Date Encounter Closed Date Diagnosis/Indication Diagnosis SNOMED-CT Code Diagnosis ICD10 Code Diagnosis Note [id number] Moise Chapa MD Main - [address] [address] 07/08/2022 16:12:20 08/11/2023 11:58:45 Gastroesophageal reflux disease 670364759 K21.00 [facility] 76-[facility]-ol [facility] severe [facility] pain. When the hand ironer arrived, she seemed to indicate heartburn and she had tried some OTC liquid medication . She did not want to go to the ER at this point. I suggested that she try OTC Prilosec and if there is no improvemen t or if her pain worsens, she should call 911. She will follow-up with her PCP. The patient agreed with this plan. [id number] Tiffany Sarvaia MD Main - [facility] [address] [place] [phone] 08/12/2022 18:59:54 08/14/2022 10:30:11 Exacerbation of intermittent asthma 738886512 J45.21 76y F with PMH CHF and asthma with mild asthma exacerbati on. Recently moved from [place]. No prior need for steroid treatment in setting of asthma. VSS. Responded well to albuterol nebs suggesting asthma over CHF. Will send inhaler to pharmacy. Encourage patient to f/u with primary care office to receive inhalers and to call us or primary care office if symptoms not improving with albuterol alone or if worsening. [id number] Yunior Berman MD Main - [facility] [address] [place] [phone] 12/23/2022 18:35:12 12/24/2022 14:44:55 Acute exacerbation of chronic obstructive pulmonary disease 687724706 J44.1 Health Concerns Section Related Observation LastModified by Organization Detai ls LastModified Time None Recorded Concern Status LastModified by Organization Details LastModified Time None Recorded Advance Directives Directive None Recorded Payers Encounter Date Sequence Insurance Name Policy Number Policy Chavez Covered Member ID Chavez Member ID Guarantor Name 07/08/2022 1 [facility] [employer] (MEDICARE REPLACEMENT/ADV ANTAGE - PPO) Charleen Hines [id number] Charleen Hines 08/12/2022 1 [facility] [employer] - DOS PRIOR TO 2022 - DUAL ELIGIBLE (MEDICARE REPLACEMENT/ADV ANTAGE - HMO) Charleen Scotty Hines [id number] Charleen Robertsa 12/23/2022 1 [facility] [employer] - DOS PRIOR TO 2022 - DUAL ELIGIBLE (MEDICARE REPLACEMENT/ADV ANTAGE - HMO) Charleen Fajardo Hines [id number] Charleen Fajardo Hines Notes Date Note Type Note Provider Name and Address Organization Details Recorded Time 07/08/2022 text/html HPI: Mbr is 76 y/o being reported to have abdominal pain 10/10 constant pain with associated dizziness when she has a 'pain spell' episode. Mbr tested +ve for covid on 08/01, received some txt and has since tested -ve. Reported to have had diarrhea from Fri to Fri. Was taking Immodium for the diarrhea. Mbr able to tolerate po intake but will experience worsening abdominal pain like stomach cramps after eating. Denies any vomiting, bloody stools or fever. Eyes do not appear yellow. BP 106/60. Blood sugar 107. Advised dgter that given the constant 10/10 abdominal pain, mbr should be taken to the ER for evaluation. 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 States that she would like for [facility] to come out and evaluate mbr. Advised dgter that imaging or xrays may be required to determine the cause of the abdominal pain. Dgter understands and states that she would still like for the paramedics to come out and evaluate the mbr. Advised dgter that if mbr has worsening abdominal pain, vomiting or bloody stools to call 911 and go to the nearest ER. Verbalized understanding CODE: Unknown ALLERGIES: PCN PMHx: DM2, HLD, Hypothroidism, Obesity, Breast CA, Heart Dx, Cardiac Murmur ................... ................... ................... ................... ................... ................... ................... ........ CRC Nursing Assessment: Comments: CRC RN DID NOT NEED FURTHER INFO HILDAONNER ................... ................... ................... ................... ................... ................... ................... ........ [facility] [employer] Note: Sent to a call for a pt complaining of abd pain and dizziness. SC8 arrives on scene, pt is alert and oriented. Airway is patent. Pt and daughter speak Kinyarwanda. Medical Office Clerk line used. Pt was treated for Covid with Paxlovid following covid diagnosis on 07/03. Pt reports epigastric pain after eating, acid reflux, increased gas, and dizziness due to pain x 3 days. Pt has history of stomach ulcers in the past. Pt denies headache, cp, sob, nausea/vomiting, diarrhea since Friday, bloody stool, fever, or loc. Pt is eating and drinking. (lying down) BP:101/68, P:74, RR:18, SpO2:96% RA, T:98.5; (sitting) BP:119/77, P:76; Lung sounds: clear bilaterally; Abdomen: soft, non-tender, no distention; Skin: pink, warm, dry; [facility] orders Mylanta PO. Pt advised to stay hydrated, buy Prilosec OTC and follow up with PCP. Red flags discussed. Pt/daughter have no further questions. ................... ................... ................... ................... ................... ................... ................... ........ Disposition: Fulfilled Moise Chapa MD [address] [facility],[address], [place], [address], [employer] 09/06/2022 19:09:07 08/12/2022 text/html HPI: cough since 08/09, has gotten worse, chest congestion/pressure , wheezing at times. Cough is dry. No radiation of pain , jaw, shoulder, arm and neg for fever. cough has made regular activities difficult even walking is hard now. ................... ................... ................... ................... ................... ................... ................... ........ 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 Also some mild shortness of breath. reports possible history of asthma but not on any inhalers. no sick contacts. no rhinorrhea or pharyngitis. has been on inhalers in the past but none currently. Tiffany Saravia MD [address] [place] [address],[address], [place], [address], [employer] 08/12/2022 19:36:51 12/23/2022 text/html HPI: Patient with onset of illness several days ago. No known fever. Had headache and runny nose. Now with productive cough with yellow phlegm. Using albuterol inhaler x 3 today. Patient listed with [facility] unknown use of CPAP. Please evaluate equipment if in use at home. ................... ................... ................... ................... ................... ................... ................... ........ [facility] Nursing Assessment: Comments: Review request no further information needed to process visit ................... ................... ................... ................... ................... ................... ................... ........ [facility] Note From Wally Bajwa: Pt reports dry cough and mild ALAS since 12/19. Pt denies SOB at rest, ? ??P, f/n/v/d. Of note , pt has COPD hx and uses albuterol MDI. Pt is alert, no distress. VSS. Afebrile . Neuro exam normal. Slight bilateral expiratory wheezing. ABD is soft, non tender. No peripheral edema noted. POC covid and strep negative. Pt's sx c/w COPD exacerbation. Pt treated with duoneb and 40 mg PO prednisone. Pt endorses improved breathing post duoneb . Pt instructed to f/u with PCP next week and to seek emergent medical care for new or worsening sx which are reviewed with her. [facility] Medication Orders: prednisone 20 mg tablet: Administered Flat Drier Allergies: Penicillin ................... ................... ................... ................... ................... ................... ................... ........ Disposition: Fulfilled Yunior Berman MD [address] [place] [address],[address], [place], [address], [facility] [employer] 12/23/2022 19:20:03 OBGyn Episode No OBEpisode recorded.
--- OUTSIDE RECORDS SUMMARY | 2024-09-16 13:58 | XMS_ITS | Encounter Summary ---
Author Organization [facility] Address [address] [place] [address] Care Team Providers Care Roofer Helper Name Role Phone Lupe Moralez Primary Care Provider [phone] Perry Quintero MD Unavailable [phone] Encounter Details Date Type Department Care Team (Late st Contact Info) Description 03/18/2023 Abstract [facility] [address] [place] [address] Lupe Moralez FNP [address] [place] [id number] Social History Tobacco Use Types Packs/Day Years Used Date Smoking Tobacco: Never Passive Smoke Exposure: Never Smokeless Tobacco: Never Alcohol Use Standard Drinks/Week Comments Never 0 (1 standard drink = 0.6 oz pur e alcohol) Depression Answer Date Recorded Patient Health Questionnaire-9 Score 5 01/02/2023 Depression Answer Date Recorded Patient Health Questionnaire-2 Score 0 01/02/2023 Comments Unknown Sex and Gender Information Value Date Recorded Sex Assigned at Female 06/03/2022 10:40 AM EDT Legal Sex Female 10:40 AM EDT Gender Identity Female 06/03/2022 10:40 AM EDT Sexual Orientation Straight 06/03/2022 10 :40 AM EDT documented as of this encounter Plan of Treatment Upcoming Encounters Date Type Department Care Team (Late st Contact Info) Description 09/16/2024 2:00 PM EST Office Visit [facility] [address] [place], [place] [id number] Gout involving toe of right foot, unspecified cause, unspecified chronicity (Primary Dx); Anemia, unspecified type 09/17/2024 1:45 PM EST Office Visit [facility] [address] [place] [address] Lupe Moralez FNP [address] [place] [address] documented as of this encounter Visit Diagnoses Not on filedocumented in this encounter Additional Health Concerns Assessment Noted Time PHQ-9 Depression Total Score: 5 01/03/20 23 2:27 PM EDT documented as of this encounter Care Teams Roofer Helper Relationship Specialty Start Date End Date Lupe Moralez FNP [address] [place] [address] PCP - General Family Medicine 04/16/22 Perry Quintero MD [address] [place] [id number] Cardiology 06/14/24 documented as of this encounter
--- OUTSIDE RECORDS SUMMARY | 2024-09-16 13:58 | XMS_ITS | Encounter Summary ---
Author Organization [employer] Address [address] [facility] [address] [place] [address] Care Team Providers Care Diversity Specialist Name Role Phone Lupe Moralez Primary Care Provider [phone] Perry Quintero MD Unavailable [phone] Encounter Details Date Type Department Care Team ([facility] st Contact Info) Description 01/03/2023 Telephone [facility] [address] [place] [address] Lupe Moralez FNP [address] [place] [address] Social History Tobacco Use Types Packs/Day Years [...] Orientation Straight 06/03/2022 10 :40 AM EDT COVID-19 Exposure Response Date Recorded In the last 10 days, have yo u been in contact with someone who was confirmed or suspected to have Coronavirus/COVID-19? No / Unsure 01/02/2023 2:09 PM EDT documented as of this encounter Miscellaneous Notes * Telephone Encounter - Loly Limon RN - 01/09/2023 9:04 AM EDT T/c to [phone] to [facility] to inform below message from provider, No answer. LVM to call back [phone]. * Telephone Encounter - BE Chavez - 01/09/2023 7:41 AM EDT DME request for nebulizer generated. Thank you. * Telephone Encounter - Esthela Hidalgo - 01/03/2023 12:55 PM EDT Tc from [facility] from [facility] requesting a nebulizer machine . Any question please call phone # [phone] ext [phone]. Please fax order to [phone] documented in this encounter Plan of Treatment Upcoming Encounters Date Type Department Care Team (Late st Contact Info) Description 09/16/2024 2:00 PM EST Office Visit [facility] [address] [place] [address] Gout involving toe of right foot, unspecified cause, unspecified chronicity (Primary Dx); Anemia, unspecified type 09/17/2024 1:45 PM EST Office Visit [facility] [address] [place] [address] Lupe Moralez FNP [address] [place] [address] documented as of this encounter Visit Diagnoses Not on filedocumented in this encounter Additional Health Concerns Assessment Noted Time PHQ-9 Depression Total Score: 5 01/03/20 23 2:27 PM EDT documented as of this encounter Care Teams Diversity Specialist Relationship Specialty Start Date End Date Lupe Moralez FNP [address] [place] [address] PCP - General Family Medicine 04/16/22 Perry Quintero MD [address] [place] [address] Cardiology 06/14/24 documented as of this encounter
--- OUTSIDE RECORDS SUMMARY | 2024-09-16 13:58 | XMS_ITS | Clinical Summary ---
Author Organization [facility] Facility Address [address] [place] [id number] Care Team Providers Care Health Promotion Manager Name Role Phone Unavailable Primary Care Provider Unavailabl e Allergies Active Allergy Reactions Criticality Noted Date Comments Penicillins Rash Low 04/16/2022 Medications carvedilol (COREG) 25 MG tablet Take 12.5 mg by mouth 09/13/2022 Active Multiple Vitamins-Minera ls (CEROVITE PO) Take by mouth Active clopidogrel (PLAVIX) 75 MG tablet Take 75 mg by mouth 1 (one) time each day Active sacubitril-vals inga (Entresto) 24-26 MG per tablet Take 1 tablet by mouth in the morning and 1 tablet in the evening. Active gabapentin (NEURONTIN) 300 MG capsule Take 300 mg by mouth in the morning and 300 mg in the evening and 300 mg before bedtime. Active gabapentin (NEURONTIN) 600 MG tablet Take 600 mg by mouth in the morning and 600 mg in the evening and 600 mg before bedtime. Active levothyroxine sodium (TIROSINT) 88 MCG capsule Take 88 mcg by mouth 1 (one) time each day Active metFORMIN (GLUCOPHAGE) 1000 MG tablet Take 1,000 mg by mouth in the morning and 1,000 mg in the evening. Take with meals. Active simvastatin (ZOCOR) 20 MG tablet Take 20 mg by mouth every night Active spironolactone (ALDACTONE) 25 MG tablet Take 25 mg by mouth 1 (one) time each day Active cyancobalamine (VITAMIN B-12) 500 MCG tablet Take 1,000 mcg by mouth 1 (one) time each day Active furosemide (LASIX) 20 MG tablet Take 20 mg by mouth in the morning and 20 mg in the evening. Active glipiZIDE (GLUCOTROL) 5 MG tablet Take 5 mg by mouth in the morning and 5 mg in the evening. Take before meals. Active Active Problems Problem Noted Date Diagnosed Date Stage 3a chronic kidney disease 04/30/2023 Family History Relation Status Comments Father Mother Social History Tobacco Use Types Packs/Day Years Used Date Smoking Tobacco: Never Tobacco Cessation:Counseling Given: Not Answered Alcohol Use Standard Drinks/Week Comments Never 0 (1 standard drink = 0.6 oz pur e alcohol) Comments Unknown Sex and Gender Information Value Date Recorded Sex Assigned at Not on file Legal Sex Female 9:34 AM EDT Gender Identity Not on file Sexual Orientation Not on file Last Filed Vital Signs Vital Sign Reading Time Taken Comments Blood Pressure 137/67 04/30/2023 3:48 PM EDT Pulse 84 04/30/2023 3:48 PM EDT Temperature - - Respiratory Rate - - Oxygen Saturation 97% 04/30/2023 3:48 PM EDT Inhaled Oxygen Concentration - - Weight 92.8 kg (204 lb 9.6 oz) 04/30/2023 3:48 P M EDT Height - - Body Mass Index - - Plan of Treatment Health Maintenance Due Date Last Done Comments Diabetes: Ophthalmology Exam 03/20/2023 Diabetes: Pedal Pulse Checked 03/20/2023 Diabetes: Sensory Foot Exam 03/20/2023 Diabetes: Visual Foot Exam 03/20/2023 Diabetes: Hemoglobin A1C 06/11/2023 03/11/2023, 07/0 12/2022 Influenza Vaccine (#1) 2024 , 08/14/2018, 05/31/2016, Additional history exists Pneumococcal Vaccine: 65+ Years Completed 2019, 09/27/2015 Hepatitis B Vaccine Aged Out No longe r eligible based on patient's age to complete this topic Insurance [facility] ([id number]) [facility] ([id number])
--- OUTSIDE RECORDS SUMMARY | 2024-09-16 13:58 | XMS_ITS | Encounter Summary ---
Author Organization [employer] [facility] Address [address] [facility] 7t [place] [address] Care Team Providers Care Triage Clinician Name Role Phone Lupe Moralez Primary Care Provider [phone] Perry Quintero MD Unavailable [phone] Encounter Details Date Type Department Care Team ([facility] Contact Info) Description 11/07/2022 Abstract [facility] MEDICINE [address] [place] [address] Lupe Moralez FNP [address] [place] [address] [phone] Social History Tobacco Use Types Packs/Day Years [...] suspected to have Coronavirus/COVID-19? No / Unsure 10/21/2022 1:00 PM EDT documented as of this encounter Plan of Treatment Upcoming Encounters Date Type Department Care Team ([facility] Contact Info) Description 09/16/2024 2:00 PM EST Office Visit [facility] [address] [place] [address] Gout involving toe of right foot, unspecified cause, unspecified chronicity (Primary Dx); Anemia, unspecified type 09/17/2024 1:45 PM EST Office Visit [facility] MED & PEDS [address] [place] [address] Lupe Moralez FNP [address] [place] [address] documented as of this encounter Visit Diagnoses Not on filedocumented in this encounter Care Teams Triage Clinician Relationship Specialty Start Date End Date Lupe Moralez FNP [address] [place] [address] PCP - General Family Medicine 04/16/22 Perry Quintero MD [address] [place] [address] Cardiology 06/14/24 documented as of this encounter
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
--- OUTSIDE RECORDS SUMMARY | 2024-09-16 13:58 | XMS_ITS | Encounter Summary ---
Author Organization [employer] Address [address] [facility] 7t [place] [address] Care Team Providers Care Supply Person Name Role Phone Lupe Moralez Primary Care Provider [phone] Perry Quintero MD Unavailable [phone] Reason for Visit * Reason Onset Date Comments triage 12/23/2022 Encounter Details Date Type Department Care Team ([facility] st Contact Info) Description 12/23/2022 Telephone [facility] MEDICINE [address] [place] [address] Lupe Moralez FNP [address] [place], [place] [phone] triage Social History Tobacco Use Types Packs/Day Years [...] encounter Miscellaneous Notes * Telephone Encounter - Vanessa Cosby LPN - 12/23/2022 4:46 PM EDT Triage call returned to patient Daughter via [employer] 3D Technologist [id number]. Patient with onset of flu like symptoms several days ago with headache and runny nose. Now with increased chest congestion andcough. No shortness of breath at time of call but has used inhaler x 3 today. No fever. Productive of yellow phlegm with cough. Disposition reviewed and Daughter in agreement with plan. [facility]/Insted off ered and accepted for home evaluation. Team tasked to update PCP with [facility] insted evaluation. Address and phone number verified at time of call. Protocol Used: Cough (Adult) Protocol-Based Disposition: See in Office or Video Visit Today or Tomorrow Video visit not offered Positive Triage Questions: * Continuous (nonstop) coughing interferes with work or school and no improvement using cough treatment per Care Advice * Patient wants to be seen * All higher-acuity triage questions were negative Care Advice Discussed: * Cough Syrup With Dextromethorphan * Prevent Dehydration * Reasons To Call Back - Difficulty breathing - You become worse * Telephone Encounter - Henok Ness - 12/23/2022 4:14 PM EDT Tc from daughter returning triage nurse call. * Telephone Encounter - Vanessa Cosby LPN - 12/23/2022 12:40 PM EDT Please see note below. Unable to contact. Call listed as high priority. Please follow with patient. * Telephone Encounter - Henok Ness - 12/23/2022 11:46 AM EDT Symptom: Cough Outcome: Schedule an urgent appointment (within 1 hour) or talk to a nurse or provider soon Reason: Wheezing The caller accepted this outcome speaks guyanese documented in this encounter Plan of Treatment Upcoming Encounters Date Type Department Care Team (Late st Contact Info) Description 09/16/2024 2:00 PM EST [facility] [address] [phone] Gout involving toe of right foot, unspecified cause, unspecified chronicity (Primary Dx); Anemia, unspecified type 09/17/2024 1:45 PM EST Office Visit [facility] MED & PEDS [address] [place] [address] Lupe Moralez FNP [address] [place] [address] documented as of this encounter Visit Diagnoses Not on filedocumented in this encounter Care Teams Supply Person Relationship Specialty Start Date End Date Lupe Moralez FNP [address] [place] [address] PCP - General Family Medicine 04/16/22 Perry Quintero MD [address] [place] [address] Cardiology 06/14/24 documented as of this encounter
--- OUTSIDE RECORDS SUMMARY | 2024-09-16 13:58 | XMS_ITS | Encounter Summary ---
Author Organization [employer] [facility] Address [address] [facility] 7t [place] [address] Care Team Providers Care Surveyor Hydrographic Name Role Phone Lupe Moralez Primary Care Provider [phone] Perry Quintero MD Unavailable [phone] Reason for Visit * Reason Onset Date Comments ER Follow-up 01/27/2023 Encounter Details Date Type Department Care Team ([facility] st Contact Info) Description 01/27/2023 Telephone [facility] MEDICINE [address] [place] [address] Lupe Moralez FNP [address] [place], [place] [phone] ER Follow-up Social History Tobacco Use Types Packs/Day Years [...] Telephone Encounter - Loly Limon RN - 01/28/2023 9:55 AM EDT T/C to [phone] for below message, pt. Is doing good. Pt. Schedule for ED follow up on 02/05/2023. Pt. Also advised to go to nearest ED in case of any new, return or worsening symptoms including CP, SOB or breathing problem. [facility] hours are reviewed. ED summery printed and scanned into pt's chart. * Telephone Encounter - Eleni Rahman - 01/27/2023 1:44 PM EDT Patient calling to report ED visit on 01/23/23 at [facility]. Seen for breathing trouble and asthma. Patient advised will forward to team nurse for follow up. Patient and daughter speaks kuwaiti. documented in this encounter Plan of Treatment Upcoming Encounters Date Type Department Care Team (Late st Contact Info) Description 09/16/2024 2:00 PM EST Office Visit [facility] WALK[facility] CENTER [address] [place] [address] Gout involving toe of right foot, unspecified cause, unspecified chronicity (Primary Dx); Anemia, unspecified type 09/17/2024 1:45 PM EST Office Visit [facility] CH[facility] MED & PEDS [address] [place] [address] Lupe Moralez FNP [address] [place] [address] documented as of this encounter Visit Diagnoses Not on filedocumented in this encounter Additional Health Concerns Assessment Noted Time PHQ-9 Depression Total Score: 5 01/03/20 2:27 PM EDT documented as of this encounter Care Teams Surveyor Hydrographic Relationship Specialty Start Date End Date Lupe Moralez FNP [address] [place] [address] PCP - General Family Medicine 04/16/22 Perry Quintero MD [address] [place] [address] Cardiology 06/14/24 documented as of this encounter
--- OUTSIDE RECORDS SUMMARY | 2024-09-16 13:58 | XMS_ITS | Encounter Summary ---
Author Organization [employer] Address [address] [facility] 7t [place] [address] Care Team Providers Care Card Room Manager Name Role Phone Lupe Moralez Primary Care Provider [phone] Perry Quintero MD Unavailable [phone] Reason for Visit * Reason Comments Med Refill Encounter Details Date Type Department Care Team (Late st Contact Info) Description 08/21/2024 Refill [facility] MEDICINE [address] [place] [address] Lupe Moralez FNP [address] [place], [place] [phone] Social History Tobacco Use Types Packs/Day Years [...] Description 09/16/2024 2:00 PM EST Office Visit [facility] [address] [place] [address] Gout involving toe of right foot, unspecified cause, unspecified chronicity (Primary Dx); Anemia, unspecified type 09/17/2024 1:45 PM EST Office Visit [facility] MED & PEDS [address] [place] [address] Lupe Moralez FNP [address] [place] [address] documented as of this encounter Visit Diagnoses Not on filedocumented in this encounter Additional Health Concerns Assessment Noted Time PHQ-9 Depression Total Score: 4 02/09/20 10:42 AM EDT documented as of this encounter Care Teams Card Room Manager Relationship Specialty Start Date End Date Lupe Moralez FNP [address] [place] [address] PCP - General Family Medicine 04/16/22 Perry Quintero MD [address] [place] [address] Cardiology 06/14/24 documented as of this encounter
--- OUTSIDE RECORDS SUMMARY | 2024-09-16 13:58 | XMS_ITS | Encounter Summary ---
Author Organization [employer] Address [address] [facility] 7t [place] [address] Care Team Providers Care Headliner Installer Name Role Phone Lupe Moralez Primary Care Provider [phone] Perry Quintero MD Unavailable [phone] Reason for Visit * Reason Comments Med Refill Encounter Details Date Type Department Care Team ([facility] st Contact Info) Description 05/31/2024 Refill [facility] MED[facility] [address] [place] [address] Lupe Moralez FNP [address] [place], [place] [phone] Gastroesophageal reflux disease, unspecified whether esophagitis present Social History Tobacco Use Types Packs/Day Years [...] 2:00 PM EST Office Visit [facility] [address] [place] [address] Gout involving toe of right foot, unspecified cause, unspecified chronicity (Primary Dx); Anemia, unspecified type 09/17/2024 1:45 PM EST Office Visit [facility] [address] [place] [address] Lupe Moralez FNP [address] [place] [address] documented as of this encounter Visit Diagnoses Diagnosis Gastroesophageal reflux disease, unspecified whether esophagitis present Gout involving toe of right foot, unspecified cause, unspecified chronicity- Primary Anemia, unspecified type documented in this encounter Additional Health Concerns Assessment Noted Time PHQ-9 Depression Total Score: 4 02/09/20 24 10:42 AM EDT documented as of this encounter Care Teams Headliner Installer Relationship Specialty Start Date End Date Lupe Moralez FNP [address] [place] [address] PCP - General Family Medicine 04/16/22 Perry Quintero MD [address] [place] [address] Cardiology 06/14/24 documented as of this encounter
--- OUTSIDE RECORDS SUMMARY | 2024-09-16 13:58 | XMS_ITS | Encounter Summary ---
Author Organization [employer] Address [address] [facility] 7t [place] [address] Care Team Providers Care Veneer Marker Name Role Phone Lupe Moralez Primary Care Provider [phone] Perry Quintero MD Unavailable [phone] Reason for Visit * Reason Onset Date Comments Med Refill 08/16/2024 Encounter Details Date Type Department Care Team ([facility] st Contact Info) Description 08/16/2024 Telephone [facility] MED & PEDS [address] [place] [address] Lupe Moralez FNP [address] [place] [address] Med Refill Social History Tobacco Use Types Packs/Day Years [...] encounter Miscellaneous Notes * Telephone Encounter - Estelle Rahman LPN - 08/16/2024 2:00 PM EST Medication was discontinued. * Telephone Encounter - Esthela Hidalgo - 08/16/2024 1:36 PM EST TC from pt daughter requesting medication refill. Medications needing refill : glipiZIDE XL (Glucotrol XL) 5 MG 24 hr tablet To be sent to: [facility] - [place], [place] - [address] [place] [address] documented in this encounter Plan of Treatment Upcoming Encounters Date Type Department Care Team (Late st Contact Info) Description 09/16/2024 2:00 PM EST Office Visit [facility] W[facility] [address] [place], [place] [phone] Gout involving toe of right foot, unspecified cause, unspecified chronicity (Primary Dx); Anemia, unspecified type 09/17/2024 1:45 PM EST Office Visit [facility] MED & PEDS [address] [place], [place] [phone] Lupe Moralez FNP [address] [place], [place] [phone] documented as of this encounter Visit Diagnoses Not on filedocumented in this encounter Additional Health Concerns Assessment Noted Time PHQ-9 Depression Total Score: 4 02/09/20 24 10:42 AM EDT documented as of this encounter Care Teams Veneer Marker Relationship Specialty Start Date End Date Lupe Moralez FNP [address] [place] [address] PCP - General Family Medicine 04/16/22 Perry Quintero MD [address] [place] [address] Cardiology 06/14/24 documented as of this encounter
--- OUTSIDE RECORDS SUMMARY | 2024-09-16 13:59 | XMS_ITS | Encounter Summary ---
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 No / Unsure 07/18/2022 10:07 AM EST documented as of this encounter Miscellaneous Notes * Result Encounter Note - BORA Jarvis - 07/24/2022 3:30 PM EST Susceptible to bactrim, however pt admitted at [facility] few days later d/t HUSEYIN. documented in this encounter Plan of Treatment Upcoming Encounters Date Type Department Care Team (Late st Contact Info) Description 09/16/2024 2:00 PM EST Office Visit [facility] [address] [place] [address] Gout involving toe of right foot, unspecified cause, unspecified chronicity (Primary Dx); Anemia, unspecified type 09/17/2024 1:45 PM EST Office Visit [facility] [address] [place] [address] PhalLupe alegria, CCO & PRESIDENT [address] [place] [address] documented as of this encounter Procedures Procedure Name Priority Date/Time Associated Diagnosis Comments CULTURE, URINE, ROUTINE Routine 06/03/2023 4:03 PM EDT LACTIC ACID LAB USE ONLY Routine 03/15/2023 6:29 PM EDT URINALYSIS, COMPLETE, WITH REFLEX TO CULTURE Routine 03/15/2023 3:34 PM EDT CBC WITH AUTO DIFFERENTIAL Routine 03/15/2023 3:34 PM EDT LIPASE Routine 03/15/2023 3:34 PM EDT LACTIC ACID Routine 03/15/2023 3:34 PM EDT COMPREHENSIVE METABOLIC PANEL Routine 03/15/2023 3:34 PM EDT CULTURE, URINE, ROUTINE Routine 03/11/2023 4:02 PM EDT CREATININE, SERUM Routine 02/10/2023 11: 24 AM EDT UREA NITROGEN (BUN) Routine 02/10/2023 1 1:24 AM EDT CALCIUM Routine 02/10/2023 11:24 AM EDT ELECTROLYTE PANEL Routine 02/10/2023 11: 24 AM EDT URINALYSIS, COMPLETE, WITH REFLEX TO CULTURE Routine 02/02/2023 3:16 AM EDT HIGH SENSITIVITY TROPONIN I Routine 02/02/2023 2:37 AM EDT TSH W/REFLEX TO FT4 Routine 02/02/2023 2 :37 AM EDT CBC WITH AUTO DIFFERENTIAL Routine 02/02/2023 2:37 AM EDT SED RATE BY MODIFIED WESTERGREN Routine 02/02/2023 2:37 AM EDT B TYPE NATRIURETIC PEPTIDE (BNP) Routine 02/02/2023 2:37 AM EDT BASIC METABOLIC PANEL Routine 02/02/2023 2:37 AM EDT HIGH SENSITIVITY TROPONIN I Routine 01/23/2023 5:48 PM EDT CBC WITH AUTO DIFFERENTIAL Routine 01/23/2023 5:48 PM EDT APTT Routine 01/23/2023 5:48 PM EDT PROTHROMBIN TIME-INR Routine 01/23/2023 5:48 PM EDT B TYPE NATRIURETIC PEPTIDE (BNP) Routine 01/23/2023 5:48 PM EDT HEPATIC FUNCTION PANEL Routine 5:48 PM EDT BASIC METABOLIC PANEL Routine 01/23/2023 5:48 PM EDT CBC WITH AUTO DIFFERENTIAL Routine 12/18/2022 10:20 AM EDT APTT Routine 12/18/2022 10:20 AM EDT B TYPE NATRIURETIC PEPTIDE (BNP) Routine 12/18/2022 10:20 AM EDT ALT Routine 11/01/2022 9:29 AM EDT AST Routine 11/01/2022 9:29 AM EDT B TYPE NATRIURETIC PEPTIDE (BNP) Routine 11/01/2022 9:29 AM EDT LIPID PANEL, STANDARD Routine 11/01/2022 9:29 AM EDT BASIC METABOLIC PANEL Routine 11/01/2022 9:29 AM EDT documented in this encounter Results * Culture, Urine, Routine (06/03/2023 4:03 PM EDT) Urine Urine specimen obtained by clean catch procedure / Unknown 06/03/2023 4:03 PM EDT 06/03/2023 6:38 PM EDT Comment:UACC Narrative [facility] - 06/05/2023 12:49 PM EDT Urine Culture Report Result Urine Culture < 10,000 cfu/ml Specimen Source: Urine clean catch Yg Reyes MD LAB MICROBIOLOGY - GENERAL ORDER CASIMIRO Final Result Performing Organization Address [facility]/ZIP Co de Phone Number [facility] [address] [place] [phone] * Lactic Acid (03/15/2023 6:29 PM EDT) Lactic Acid 1.2 0.5 - 2.0 mmol/L [facility] 03/15/2023 6:29 PM EDT 03/15/2023 6:32 PM EDT [facility] External Provider LAB BLO OD ORDERABLES Final Result Performing Organization Address [facility] Co de Phone Number [facility] [address] [place] [address] [phone] * Lipase (03/15/2023 3:34 PM EDT) Lipase 22 8 - 78 U/L [facility] 03/15/2023 3:34 PM EDT 03/15/2023 3:41 PM EDT us Generic External Data Provider LAB BLOOD ORDERAB LES Final Result [facility] [address] [place] [address] [phone] * (ABNORMAL) Comprehensive Metabolic Panel (03/15/2023 3:34 PM EDT) Sodium 137 135 - 145 mmol/L [facility] Potassium 4.7 3.3 - 5.1 mmol/L [facility] Chloride 102 96 - 108 mmol/L [facility] Carbon Dioxide 23 22 - 29 mmol/L [facility] Anion Gap 17 12 - 20 [facility] Urea Nitrogen (BUN) 32(H) 9 - 16 mg/dL [facility] Creatinine, Serum 1.83(H) 0.5 - 1.4 mg/dL [facility] Creatinine Clr Calc Pharmacy 27.9 [facility] Comment:Provided height and weight: 162.56 cm,92.533 kg.eGFR (calculated from the MDRD study equation) and eCrCl(calculated from the Cockcroft-Gault equation) are based ondifferent parameters and may not yield comparable results.If eCrCl result is absurd, please check patient'sheight/weight. Estimated Glomerular Filt Rate 27 [facility] Comment:NOTE: For -Am erican individuals, multiply the result by 1.210.Chronic Kidney Disease: Estimated GFR < 60 mL/min/1.81m1Usbvfw Kidney Disease: Estimated GFR < 15 mL/min/1.73m2 Glucose 254(H) 60 - 115 mg/dL [facility] Calcium 9.8 8.4 - 10.2 mg/dL [facility] Bilirubin, Total 0.4 0.0 - 1.0 mg/dL [facility] Aspartate Amino Transferase 17 5 - 31 U/L [facility] Alanine Aminotransferase 12 0 - 31 U/L [facility] Total Protein 7.5 6.5 - 8.0 g/dL [facility] Albumin Level 4.3 3.5 - 5.0 g/dL [facility] Alkaline Phosphatase 72 39 - 117 U/L [facility] 03/15/2023 3:34 PM EDT 03/15/2023 3:41 PM EDT [facility] External Provider LAB BLO OD ORDERABLES Final Result Performing Organization Address [facility] Co de Phone Number [facility] [address] [place] [phone] * (ABNORMAL) Lactic Acid (03/15/2023 3:34 PM EDT) Lactic Acid 2.6(HH) 0.5 - 2.0 mmol/L [facility] Comment:Critical value for t est(s):LACTA Results called to anny back by:TAE Person calling:EDWARD Date:03/15/23Time:1610 03/15/2023 3:34 PM EDT 03/15/2023 3:41 PM EDT [facility] External Provider LAB BLO OD ORDERABLES Final Result Performing Organization Address [facility] de Phone Number [facility] [address] [place] [address] [phone] * (ABNORMAL) Urinalysis, Complete, with Reflex to Culture (03/15/2023 3:34 PM EDT) Color Urine Yellow [facility] Appearance Urine Clear [facility] PH 7.0 5.0 - 9.0 [facility] Glucose Urine UA >=1000(A) Negative mg/dL [facility] Urine Blood Large (3+)(A) Negative [facility] Specific Valley - Urine 1.020 1.005 - 1.025 [facility] Urine Protein Negative Neg-Trace mg/dL [facility] Urine Ketones Negative Negative mg/dL [facility] Nitrite Urine Negative Negative [facility] Leukocyte Esterase Urine Negative Negative [facility] RBC Urine >20(A) 0 - 2 /HPF [facility] Urine WBC 0-5 0 - 5 /HPF [facility] Urine Squamous Epithelial Cell 0-2 0 - 2 /HPF [facility] Urine Bacteria None Seen None Seen [facility] Hyaline Casts, Urine 0-2 0 - 2 /LPF [facility] 03/15/2023 3:34 PM EDT 03/15/2023 3:41 PM EDT Narrative [facility] - 03/15/2023 4:19 PM EDT [id number], Clean Catch us [facility] External Provider LAB URI NE ORDERABLES Final Result [facility] [address] [place], [place] [phone] * (ABNORMAL) CBC auto differential (03/15/2023 3:34 PM EDT) White Blood Count 7.2 4.8 - 10.8 X10*3/uL [facility] Red Blood Count 3.64(L) 4.20 - 5.50 X10*6/uL [facility] Hemoglobin 11.7(L) 12.0 - 16.0 g/dl [facility] Hematocrit 35.1(L) 37.0 - 47.0 % [facility] Mean Corpuscular Volume 96.4 80.0 - 98.0 fL [facility] Mean Corpuscular Hemoglobin 32.1 27.0 - 33.0 pg [facility] Mean Corpuscular HGB Conc 33.3 31.0 - 35.0 g/dl [facility] Red Cell Distribution Width 11.9 11.0 - 16.0 % [facility] Platelet Count 246 160 - 400 X10*3/uL [facility] Mean Platelet Volume 10.3 9.4 - 12.3 fL [facility] Neutrophils Percent Auto 66.7 45 - 73 % [facility] Imm Gran Pct Auto 0.4 0.0 - 0.4 % [facility] Lymphocytes Percent Auto 22.0 20 - 40 % [facility] Monocytes Percent Auto 6.4 2 - 11 % [facility] Eosinophils Percent Auto 4.1(H) 0 - 4 % [facility] Basophils Percent Auto 0.4 0 - 2 % [facility] NRBC Pct Auto 0.0 0.0 - 0.2 /100WBC [facility] Neutrophils Absolute Auto 4.8 2.0 - 8.3 x10*3/uL [facility] Imm Gran Abs Auto 0.03 0.00 - 0.03 X10*3/uL [facility] Lymphocytes Absolute Auto 1.6 1.2 - 4.9 X10*3/uL [facility] Monocytes Absolute Auto 0.5 0.1 - 1.2 X10*3/uL [facility] Eosinophils Absolute Auto 0.3 0.0 - 0.4 X10*3/uL [facility] Basophils Absolute Auto 0.0 0.0 - 0.2 X10*3/uL [facility] NRBC Abs Auto 0.000 0.0 - 0.012 X10*3/uL [facility] 03/15/2023 3:34 PM EDT 03/15/2023 3:41 PM EDT us [facility] External Provider LAB BLO OD ORDERABLES Final Result [facility] [address] [place] [address] [phone] * Culture, Urine, Routine (03/11/2023 4:02 PM EDT) Urine specimen obtained by clean catch procedure / Unknown 03/11/2023 4:02 PM EDT 03/11/2023 6:59 PM EDT Comment:UACC Narrative [facility] - 03/13/2023 8:43 AM EDT Escherichia coli Quant 50,000 to 100,000 cfu/mL Escherichia coli: Ampicillin 8(S) Escherichia coli: Ceftriaxone <=0.25(S) Escherichia coli: Gentamicin <=1(S) Escherichia coli: Levofloxacin >=8(R) Escherichia coli: Nitrofurantoin <=16(S) Escherichia coli: Trimethoprim/Sulfamethoxazole <=20(S) Specimen Source: Urine clean catch [facility] LAB MICROBIOLOGY - GENERAL ORDER CASIMIRO Final Result Performing Organization Address City/[facility]/ZIP Co de Phone Number [facility] [address] [place] [phone] * Calcium (02/10/2023 11:24 AM EDT) Calcium 9.8 8.4 - 10.2 mg/dL [facility] 02/10/2023 11:2 4 AM EDT 02/10/2023 11:24 AM EDT [facility] External Provider LAB BLO OD ORDERABLES Final Result Performing Organization Address [facility] Co de Phone Number [facility] [address] [place] [address] [phone] * Creatinine, Serum (02/10/2023 11:24 AM EDT) Creatinine, Serum 1.13 0.5 - 1.4 mg/dL [facility] Estimated Glomerular Filt Rate 47 [facility] Comment:NOTE: For -Am erican individuals, multiply the result by 1.210.Chronic Kidney Disease: Estimated GFR < 60 mL/min/1.19r9Oqdsux Kidney Disease: Estimated GFR < 15 mL/min/1.73m2 02/10/2023 11:2 4 AM EDT 02/10/2023 11:24 AM EDT [facility] External Provider LAB BLO OD ORDERABLES Final Result Performing Organization Address [facility] Co de Phone Number [facility] [address] [place] [address] [phone] * (ABNORMAL) BUN (Blood Urea Nitrogen) (02/10/2023 11:24 AM EDT) Urea Nitrogen (BUN) 24(H) 9 - 16 mg/dL [facility] 02/10/2023 11:2 4 AM EDT 02/10/2023 11:24 AM EDT [facility] External Provider LAB BLO OD ORDERABLES Final Result Performing Organization Address [facility] de Phone Number [facility] [address] [place] [address] [phone] * Electrolyte Panel (02/10/2023 11:24 AM EDT) Sodium 141 135 - 145 mmol/L [facility] Potassium 4.0 3.3 - 5.1 mmol/L [facility] Chloride 105 96 - 108 mmol/L [facility] Carbon Dioxide 25 22 - 29 mmol/L [facility] Anion Gap 15 12 - 20 [facility] 02/10/2023 11:2 4 AM EDT 02/10/2023 11:24 AM EDT [facility] External Provider LAB BLO OD ORDERABLES Final Result Performing Organization Address [facility] Co de Phone Number [facility] [address] [place] [address] [phone] * (ABNORMAL) Urinalysis, Complete, with Reflex to Culture (02/02/2023 3:16 AM EDT) Color Urine Yellow [facility] Appearance Urine Clear [facility] PH 5.5 5.0 - 9.0 [facility] Glucose Urine UA >=1000(A) Negative mg/dL [facility] Urine Blood Negative Negative [facility] Specific [place] - Urine 1.025 1.005 - 1.025 [facility] Urine Protein Negative Neg-Trace mg/dL [facility] Urine Ketones Negative Negative mg/dL [facility] Nitrite Urine Negative Negative [facility] Leukocyte Esterase Urine Negative Negative [facility] RBC Urine 3-5(A) 0 - 2 /HPF [facility] Urine WBC 0-5 0 - 5 /HPF [facility] Urine Squamous Epithelial Cell 0-2 0 - 2 /HPF [facility] Urine Bacteria None Seen None Seen [facility] Hyaline Casts, Urine 0-2 0 - 2 /LPF [facility] 02/02/2023 3:16 AM EDT 02/02/2023 3:18 AM EDT Narrative [facility] - 02/02/2023 3:28 AM EDT [id number], Clean Catch [facility] External Provider LAB URI NE ORDERABLES Final Result Performing Organization Address [facility] Co de Phone Number [facility] [address] [place] [address] [phone] * Sed Rate by Modified Heavenly (02/02/2023 2:37 AM EDT) Erythrocyte Sedimentation Rate 7 0 - 20 MM/HR [facility] Comment:Patients with polycy themia and many hemoglobin abnormalitiesmay have depressed sed rates whereas patients with anemiamay have elevated sed rates. 02/02/2023 2:37 AM EDT 02/02/2023 2:43 AM EDT [facility] External Provider LAB BLO OD ORDERABLES Final Result Performing Organization Address [facility] Co de Phone Number [facility] [address] [place] [address] [phone] * TSH W/Reflex to FT4 (02/02/2023 2:37 AM EDT) Pathologist [facility] TSH reflex Free T4 2.61 0.32 - 4.0 uIU/mL [facility] 02/02/2023 2:37 AM EDT 02/02/2023 2:43 AM EDT [facility] External Provider LAB BLO OD ORDERABLES Final Result Performing Organization Address City/[facility]/ZIP Co de Phone Number [facility] [address] [place] [address] [phone] * B Type Natriuretic Peptide (BNP) (02/02/2023 2:37 AM EDT) [facility] B Type Natriuretic Peptide 72 <100 pg/mL [facility] Comment:For those patients w ho are being treated with Natrecor(nesiritide, recombinant BNP), BNP testing should beperformed at least two hours post treatment in order toensure that only endogenous levels of BNP are detected. 02/02/2023 2:37 AM EDT 02/02/2023 2:43 AM EDT [facility] External Provider LAB BLO OD ORDERABLES Final Result Performing Organization Address City/[facility] Co de Phone Number [facility] [address] [place] [address] [phone] * High Sensitivity Troponin I (02/02/2023 2:37 AM EDT) Pathologist [facility] TROPONIN I HIGH SENSITIVITY 3.7 <3.5 - 17.0 ng/L [facility] Comment:The Tony high sens itivity Troponin-I results should beused in conjunction with other diagnostic information suchas ECG, clinical observations and information, and patientsymptoms to aid in the diagnosis of [place]. 02/02/2023 2:37 AM EDT 02/02/2023 2:43 AM EDT [facility] External Provider LAB BLO OD ORDERABLES Final Result [facility] [address] [place] [address] [phone] * (ABNORMAL) Basic Metabolic Panel (02/02/2023 2:37 AM EDT) Sodium 139 135 - 145 mmol/L [facility] Comment:Lipemic Specimen Potassium 4.3 3.3 - 5.1 mmol/L [facility] Comment:Lipemic Specimen Chloride 100 96 - 108 mmol/L [facility] Comment:Lipemic Specimen Carbon Dioxide 25 22 - 29 mmol/L [facility] Anion Gap 18 12 - 20 [facility] Urea Nitrogen (BUN) 38(H) 9 - 16 mg/dL [facility] Comment:Lipemic Specimen Creatinine, Serum 1.58(H) 0.5 - 1.4 mg/dL [facility] Comment:Lipemic Specimen Creatinine Clr Calc Pharmacy 32.4 [facility] Comment:Provided height and weight: 162.56 cm,92.986 kg.eGFR (calculated from the MDRD study equation) and eCrCl(calculated from the Cockcroft-Gault equation) are based ondifferent parameters and may not yield comparable results.If eCrCl result is absurd, please check patient'sheight/weight. Estimated Glomerular Filt Rate 32 [facility] Comment:NOTE: For -Am erican individuals, multiply the result by 1.210.Chronic Kidney Disease: Estimated GFR < 60 mL/min/1.20g3Bozswt Kidney Disease: Estimated GFR < 15 mL/min/1.73m2 Glucose 230(H) 60 - 115 mg/dL [facility] Comment:Lipemic Specimen Calcium 10.5(H) 8.4 - 10.2 mg/dL [facility] Comment:Lipemic Specimen 02/02/2023 2:37 AM EDT 02/02/2023 2:43 AM EDT [facility] External Provider LAB BLO OD ORDERABLES Final Result [facility] [address] [place] [address], [place] [phone] * (ABNORMAL) CBC auto differential (02/02/2023 2:37 AM EDT) White Blood Count 9.2 4.8 - 10.8 X10*3/uL [facility] Red Blood Count 3.86(L) 4.20 - 5.50 X10*6/uL [facility] Hemoglobin 12.9 12.0 - 16.0 g/dl [facility] Hematocrit 37.5 37.0 - 47.0 % [facility] Mean Corpuscular Volume 97.2 80.0 - 98.0 fL [facility] Mean Corpuscular Hemoglobin 33.4(H) 27.0 - 33.0 pg [facility] Mean Corpuscular HGB Conc 34.4 31.0 - 35.0 g/dl [facility] Red Cell Distribution Width 12.6 11.0 - 16.0 % [facility] Platelet Count 281 160 - 400 X10*3/uL [facility] Mean Platelet Volume 10.2 9.4 - 12.3 fL [facility] Neutrophils Percent Auto 58.2 45 - 73 % [facility] Imm Gran Pct Auto 1.0(H) 0.0 - 0.4 % [facility] Lymphocytes Percent Auto 32.1 20 - 40 % [facility] Monocytes Percent Auto 6.3 2 - 11 % [facility] Eosinophils Percent Auto 2.1 0 - 4 % [facility] Basophils Percent Auto 0.3 0 - 2 % [facility] NRBC Pct Auto 0.0 0.0 - 0.2 /100WBC [facility] Neutrophils Absolute Auto 5.4 2.0 - 8.3 x10*3/uL [facility] Imm Gran Abs Auto 0.09(H) 0.00 - 0.03 X10*3/uL [facility] Lymphocytes Absolute Auto 3.0 1.2 - 4.9 X10*3/uL [facility] Monocytes Absolute Auto 0.6 0.1 - 1.2 X10*3/uL [facility] Eosinophils Absolute Auto 0.2 0.0 - 0.4 X10*3/uL [facility] Basophils Absolute Auto 0.0 0.0 - 0.2 X10*3/uL [facility] NRBC Abs Auto 0.000 0.0 - 0.012 X10*3/uL [facility] 02/02/2023 2:37 AM EDT 02/02/2023 2:43 AM EDT [facility] External Provider LAB BLO OD ORDERABLES Final Result Performing Organization Address [facility]/ZIP Co de Phone Number [facility] [address] [place] [address] [phone] * (ABNORMAL) B Type Natriuretic Peptide (BNP) (01/23/2023 5:48 PM EDT) Pathologist [facility] B Type Natriuretic Peptide 119(H) <100 pg/mL [facility] Comment:For those patients w ho are being treated with Natrecor(nesiritide, recombinant BNP), BNP testing should beperformed at least two hours post treatment in order toensure that only endogenous levels of BNP are detected. 01/23/2023 5:48 PM EDT 01/23/2023 9:15 PM EDT [facility] External Provider LAB BLO OD ORDERABLES Final Result Performing Organization Address [facility]/ZIP Co de Phone Number [facility] [address] [place] [address] [phone] * (ABNORMAL) Basic Metabolic Panel (01/23/2023 5:48 PM EDT) [facility] Sodium 138 135 - 145 mmol/L [facility] Potassium 4.2 3.3 - 5.1 mmol/L [facility] Chloride 105 96 - 108 mmol/L [facility] Carbon Dioxide 23 22 - 29 mmol/L [facility] Anion Gap 14 12 - 20 [facility] Urea Nitrogen (BUN) 22(H) 9 - 16 mg/dL [facility] Creatinine, Serum 0.99 0.5 - 1.4 mg/dL [facility] Creatinine Clr Calc Pharmacy 50.3 [facility] Comment:Provided height and weight: 160.02 cm,91.626 kg.eGFR (calculated from the MDRD study equation) and eCrCl(calculated from the Cockcroft-Gault equation) are based ondifferent parameters and may not yield comparable results.If eCrCl result is absurd, please check patient'sheight/weight. Estimated Glomerular Filt Rate 54 [facility] Comment:NOTE: For -Am erican individuals, multiply the result by 1.210.Chronic Kidney Disease: Estimated GFR < 60 mL/min/[id number] Kidney Disease: Estimated GFR < 15 mL/min/1.73m2 Glucose 119(H) 60 - 115 mg/dL [facility] Calcium 10.2 8.4 - 10.2 mg/dL [facility] 01/23/2023 5:48 PM EDT 01/23/2023 6:01 PM EDT us [facility] External Provider LAB BLO OD ORDERABLES Final Result [facility] [address] [place] [phone] * Hepatic Function Panel (01/23/2023 5:48 PM EDT) Bilirubin, Total 0.6 0.0 - 1.0 mg/dL [facility] Bilirubin, Direct 0.2 0.0 - 0.5 mg/dL [facility] Aspartate Amino Transferase 12 5 - 31 U/L [facility] Alanine Aminotransferase 8 0 - 31 U/L [facility] Total Protein 7.2 6.5 - 8.0 g/dL [facility] Albumin Level 4.1 3.5 - 5.0 g/dL [facility] Alkaline Phosphatase 72 39 - 117 U/L [facility] 01/23/2023 5:48 PM EDT 01/23/2023 6:01 PM EDT [facility] External Provider LAB BLO OD ORDERABLES Final Result Performing Organization Address [facility]/ZIP Co de Phone Number [facility] [address] [place] [address] [phone] * High Sensitivity Troponin I (01/23/2023 5:48 PM EDT) Pathologist [facility] TROPONIN I HIGH SENSITIVITY <2.7 <3.5 - 17.0 ng/L [facility] Comment:The Tony high sens itivity Troponin-I results should beused in conjunction with other diagnostic information suchas ECG, clinical observations and information, and patientsymptoms to aid in the diagnosis of [place]. 01/23/2023 5:48 PM EDT 01/23/2023 6:01 PM EDT [facility] External Provider LAB BLO OD ORDERABLES Final Result Performing Organization Address [facility] Co de Phone Number [facility] [address] [place] [address] [phone] * (ABNORMAL) APTT (01/23/2023 5:48 PM EDT) Partial Thromboplastin Time 24.9(L) 26.0 - 36.4 SEC [facility] 01/23/2023 5:48 PM EDT 01/23/2023 6:01 PM EDT [facility] External Provider LAB BLO OD ORDERABLES Final Result Performing Organization Address [facility] Co de Phone Number [facility] [address] [place] [address] [phone] * Prothrombin Time-INR (01/23/2023 5:48 PM EDT) [facility] Prothrombin Time 10.0 10.0 - 13.1 SEC [facility] INTERNATIONAL NORM RATIO 0.9 0.9 - 1.1 [facility] Comment:INTERNATIONAL NORMAL IZED RATIO (INR) REFERENCE RANGES Reference RangeFor patients not on anticoagulant therapy: 0.9 - 1.1INR ranges for oral anticoagulanttherapy:For prevention and treatment of venous thrombosis and pulmonary embolism: 2.0 - 3.0For acute myocardial infarction with aspirin therapy: 2.0 - 3.0For acute myocardial infarction without aspirin therapy: 3.0 - 4.0For patients with mechanical prosthetic heart valves: 2.5 - 3.5 01/23/2023 5:48 PM EDT 01/23/2023 6:01 PM EDT [facility] External Provider LAB BLO OD ORDERABLES Final Result Performing Organization Address City/State/[facility] Co de Phone Number [facility] [address] [place] [phone] * (ABNORMAL) CBC auto differential (01/23/2023 5:48 PM EDT) [facility] White Blood Count 7.5 4.8 - 10.8 X10*3/uL [facility] Red Blood Count 3.42(L) 4.20 - 5.50 X10*6/uL [facility] Hemoglobin 11.2(L) 12.0 - 16.0 g/dl [facility] Hematocrit 33.6(L) 37.0 - 47.0 % [facility] Mean Corpuscular Volume 98.2(H) 80.0 - 98.0 fL [facility] Mean Corpuscular Hemoglobin 32.7 27.0 - 33.0 pg [facility] Mean Corpuscular HGB Conc 33.3 31.0 - 35.0 g/dl [facility] Red Cell Distribution Width 12.5 11.0 - 16.0 % [facility] Platelet Count 238 160 - 400 X10*3/uL [facility] Mean Platelet Volume 10.3 9.4 - 12.3 fL [facility] Neutrophils Percent Auto 56.7 45 - 73 % [facility] Imm Gran Pct Auto 0.4 0.0 - 0.4 % [facility] Lymphocytes Percent Auto 26.0 20 - 40 % [facility] Monocytes Percent Auto 9.9 2 - 11 % [facility] Eosinophils Percent Auto 6.3(H) 0 - 4 % [facility] Basophils Percent Auto 0.7 0 - 2 % [facility] NRBC Pct Auto 0.0 0.0 - 0.2 /100WBC [facility] Neutrophils Absolute Auto 4.2 2.0 - 8.3 x10*3/uL [facility] Imm Gran Abs Auto 0.03 0.00 - 0.03 X10*3/uL [facility] Lymphocytes Absolute Auto 1.9 1.2 - 4.9 X10*3/uL [facility] Monocytes Absolute Auto 0.7 0.1 - 1.2 X10*3/uL [facility] Eosinophils Absolute Auto 0.5(H) 0.0 - 0.4 X10*3/uL [facility] Basophils Absolute Auto 0.1 0.0 - 0.2 X10*3/uL [facility] NRBC Abs Auto 0.000 0.0 - 0.012 X10*3/uL [facility] 01/23/2023 5:48 PM EDT 01/23/2023 6:01 PM EDT us [facility] External Provider LAB BLO OD ORDERABLES Final Result [facility] [address] [place] [address] [phone] * B Type Natriuretic Peptide (BNP) (12/18/2022 10:20 AM EDT) B Type Natriuretic Peptide 95 <100 pg/mL [facility] Comment:For those patients w ho are being treated with Natrecor(nesiritide, recombinant BNP), BNP testing should beperformed at least two hours post treatment in order toensure that only endogenous levels of BNP are detected. 12/18/2022 10:2 0 AM EDT 12/18/2022 10:20 AM EDT [facility] External Provider LAB BLO OD ORDERABLES Final Result Performing Organization Address [facility]/ZIP Co de Phone Number [facility] [address] [place] [address] [phone] * (ABNORMAL) APTT (12/18/2022 10:20 AM EDT) Partial Thromboplastin Time 24.7(L) 26.0 - 36.4 SEC [facility] 12/18/2022 10:2 0 AM EDT 12/18/2022 10:20 AM EDT [facility] External Provider LAB BLO OD ORDERABLES Final Result Performing Organization Address [facility] Co de Phone Number [facility] [address] [place] [phone] * (ABNORMAL) CBC auto differential (12/18/2022 10:20 AM EDT) White Blood Count 9.0 4.8 - 10.8 X10*3/uL [facility] Red Blood Count 3.63(L) 4.20 - 5.50 X10*6/uL [facility] Hemoglobin 11.8(L) 12.0 - 16.0 g/dl [facility] Hematocrit 35.4(L) 37.0 - 47.0 % [facility] Mean Corpuscular Volume 97.5 80.0 - 98.0 fL [facility] Mean Corpuscular Hemoglobin 32.5 27.0 - 33.0 pg [facility] Mean Corpuscular HGB Conc 33.3 31.0 - 35.0 g/dl [facility] Red Cell Distribution Width 12.4 11.0 - 16.0 % [facility] Platelet Count 221 160 - 400 X10*3/uL [facility] Mean Platelet Volume 10.6 9.4 - 12.3 fL [facility] Neutrophils Percent Auto 73.6(H) 45 - 73 % [facility] Imm Gran Pct Auto 0.2 0.0 - 0.4 % [facility] Lymphocytes Percent Auto 17.1(L) 20 - 40 % [facility] Monocytes Percent Auto 6.4 2 - 11 % [facility] Eosinophils Percent Auto 2.1 0 - 4 % [facility] Basophils Percent Auto 0.6 0 - 2 % [facility] NRBC Pct Auto 0.0 0.0 - 0.2 /100WBC [facility] Neutrophils Absolute Auto 6.7 2.0 - 8.3 x10*3/uL [facility] Imm Gran Abs Auto 0.02 0.00 - 0.03 X10*3/uL [facility] Lymphocytes Absolute Auto 1.6 1.2 - 4.9 X10*3/uL [facility] Monocytes Absolute Auto 0.6 0.1 - 1.2 X10*3/uL [facility] Eosinophils Absolute Auto 0.2 0.0 - 0.4 X10*3/uL [facility] Basophils Absolute Auto 0.1 0.0 - 0.2 X10*3/uL [facility] NRBC Abs Auto 0.000 0.0 - 0.012 X10*3/uL [facility] 12/18/2022 10:2 0 AM EDT 12/18/2022 10:20 AM EDT us [facility] External Provider LAB BLO OD ORDERABLES Final Result [facility] [address] [place] [address] [phone] * B Type Natriuretic Peptide (BNP) (11/01/2022 9:29 AM EDT) B Type Natriuretic Peptide 97 <100 pg/mL [facility] Comment:For those patients w ho are being treated with Natrecor(nesiritide, recombinant BNP), BNP testing should beperformed at least two hours post treatment in order toensure that only endogenous levels of BNP are detected. 11/01/2022 9:29 AM EDT 11/01/2022 9:29 AM EDT [facility] External Provider LAB BLO OD ORDERABLES Final Result Performing Organization Address City/[facility]/ZIP Co de Phone Number [facility] [address] [place] [address] [phone] * Lipid Panel, Standard (11/01/2022 9:29 AM EDT) Triglycerides 101 mg/dL [facility] Comment:Desirable Triglyceri de: less than 150 mg/dLBorderline High Triglyceride 150-199 mg/dLHigh Triglyceride: 200-499 mg/dLVery High Triglyceride: greater than or equal to 5OO mg/dL Cholesterol 128 mg/dL [facility] Comment:Desirable Cholestero l: less than 200 mg/dLBorderline High Cholesterol: 200-239 mg/dLHigh Cholesterol: greater than 239 mg/dL LDL Cholesterol Calculated 68 mg/dl [facility] Comment:Desirable LDL: less than 100 mg/dLNear Optimal/Above Optimal LDL: 110- 129 mg/dLBorderline High LDL: 130-159 mg/dLHigh LDL: 160-189 mg/dLVery High LDL: greater than or equal to 190 mg/dL HDL Cholesterol 40 mg/dL [facility] Comment:Desirable HDL: great er than 40 mg/dL Note: This HDL assay may give artificially low results in patients with liver disease. 11/01/2022 9:29 AM EDT 11/01/2022 9:29 AM EDT [facility] External Provider LAB BLO OD ORDERABLES Final Result [facility] [address] [place] [address] [phone] * ALT (11/01/2022 9:29 AM EDT) Alanine Aminotransferase 9 0 - 31 U/L [facility] 11/01/2022 9:29 AM EDT 11/01/2022 9:29 AM EDT [facility] External Provider LAB BLO OD ORDERABLES Final Result Performing Organization Address [facility] Co de Phone Number [facility] [address] [place] [phone] * AST (11/01/2022 9:29 AM EDT) Aspartate Amino Transferase 12 5 - 31 U/L [facility] 11/01/2022 9:29 AM EDT 11/01/2022 9:29 AM EDT [facility] External Provider LAB BLO OD ORDERABLES Final Result Performing Organization Address [facility] de Phone Number [facility] [address] [place] [phone] * (ABNORMAL) Basic Metabolic Panel (11/01/2022 9:29 AM EDT) Sodium 142 135 - 145 mmol/L [facility] Potassium 4.5 3.3 - 5.1 mmol/L [facility] Chloride 105 96 - 108 mmol/L [facility] Carbon Dioxide 30(H) 22 - 29 mmol/L [facility] Anion Gap 12 12 - 20 [facility] Urea Nitrogen (BUN) 30(H) 9 - 16 mg/dL [facility] Creatinine, Serum 1.18 0.5 - 1.4 mg/dL [facility] Estimated Glomerular Filt Rate 44 [facility] Comment:NOTE: For -Am erican individuals, multiply the result by 1.210.Chronic Kidney Disease: Estimated GFR < 60 mL/min/[id number] Kidney Disease: Estimated GFR < 15 mL/min/1.73m2 Glucose 105 60 - 115 mg/dL [facility] Calcium 9.7 8.4 - 10.2 mg/dL [facility] 11/01/2022 9:29 AM EDT 11/01/2022 9:29 AM EDT [facility] External Provider LAB BLO OD ORDERABLES Final Result [facility] [address] [place] [address] [phone] documented in this encounter Visit Diagnoses Not on filedocumented in this encounter Care Teams Eyeglass Frames Polisher Relationship Specialty Start Date End Date Lupe Moralez FNP [address] [place] [address] PCP - General Family Medicine 04/16/22 Perry Quintero MD [address] [place] [phone] Cardiology 06/14/24 documented as of this encounter
--- OUTSIDE RECORDS SUMMARY | 2024-09-16 13:59 | XMS_ITS | Encounter Summary ---
Author Organization [employer] Address [address] [facility] 7t [place] [address] Care Team Providers Care Outside Upholsterer Name Role Phone Lupe Moralez Primary Care Provider [phone] Perry Quintero MD Unavailable [phone] Reason for Visit * Reason Comments Med Refill Encounter Details Date Type Department Care Team (Late st Contact Info) Description 05/09/2023 Refill [facility] MEDICINE [address] [place] [address] Lupe Moralez FNP [address] [place], [place] [phone] Gastroesophageal reflux disease, unspecified whether esophagitis present Social History Tobacco Use Types Packs/Day Years Used Date Smoking Tobacco: Never Passive Smoke Exposure: Never Smokeless Tobacco: Never Alcohol Use Standard Drinks/Week Comments Never 0 (1 standard drink = 0.6 oz pur e alcohol) Depression Answer Date Recorded Patient Health Questionnaire-9 Score 5 01/02/2023 Housing Stability Answer Date Recorded What is your housing situation today? I have pranav sam 05/13/[address] you li ve. Do you have problems with any of the following? None of the above 05/13/2023 Food Insecurity Answer Date Recorded Within the past 12 months, y ou worried that your food would run out before you got money to buy more: Never True 05/13/2023 Within the past 12 months,th e food you bought just didn't last and you didn't have enough money to get more: Never True 05/2023 Transportation Answer Date Recorded In the past 12 months, has l ack of transportation kept you from medical appts, meetings, work or from getting things needed for daily living? No 05/13/2023 Utilities Answer Date Recorded In the past 12 months, has t he electric, gas, oil or water company threatened to shut off services in your home? No 05/13/2023 Depression Answer Date Recorded Patient Health Questionnaire-2 [...] Description 09/16/2024 2:00 PM EST Office Visit [facility] [address] [place] [address] Gout involving toe of right foot, unspecified cause, unspecified chronicity (Primary Dx); Anemia, unspecified type 09/17/2024 1:45 PM EST Office Visit [facility] MED [facility] PEDS [address] [place] [address] Lupe Moralez FNP [address] [place] [address] documented as of this encounter Visit Diagnoses Diagnosis Gastroesophageal reflux disease, unspecified whether esophagitis present Gout involving toe of right foot, unspecified cause, unspecified chronicity- Primary Anemia, unspecified type documented in this encounter Additional Health Concerns Assessment Noted Time PHQ-9 Depression Total Score: 5 01/03/20 23 2:27 PM EDT documented as of this encounter Care Teams Outside Upholsterer Relationship Specialty Start Date End Date Lupe Moralez FNP [address] [place] [address] PCP - General Family Medicine 04/16/22 Perry Quintero MD [address] [place] [address] Cardiology 06/14/24 documented as of this encounter
--- OUTSIDE RECORDS SUMMARY | 2024-09-16 13:59 | XMS_ITS | Encounter Summary ---
Author Organization [employer] Address [address] [facility] [address] [place] [address] Care Team Providers Care Invasive Cardiologist Name Role Phone Lupe Moralez Primary Care Provider [phone] Perry Quintero MD Unavailable [phone] Reason for Visit * Reason Onset Date Comments Referral 06/19/2023 Encounter Details Date Type Department Care Team ([facility] st Contact Info) Description 06/19/2023 Telephone [facility] MEDICINE [address] [place] [address] Lupe Moralez FNP [address] [place], [place] [phone] Referral Social History Tobacco Use Types Packs/Day Years Used Date Smoking Tobacco: Never Passive Smoke Exposure: Never Smokeless Tobacco: Never Alcohol Use Standard Drinks/Week Comments Never 0 (1 standard drink = 0.6 oz pur e alcohol) Depression Answer Date Recorded Patient Health Questionnaire-9 Score 5 01/02/2023 Housing Stability Answer Date Recorded What is your housing situation today? I have pranav sam 05/19/[address] you li ve. Do you have problems with any of the following? None of the above 05/19/2023 Food Insecurity Answer Date Recorded Within the past 12 months, y ou worried that your food would run out before you got money to buy more: Never True 05/19/2023 Within the past 12 months,th e food you bought just didn't last and you didn't have enough money to get more: Never True Transportation Answer Date Recorded In the past 12 months, has l ack of transportation kept you from medical appts, meetings, work or from getting things needed for daily living? No 05/19/2023 Utilities Answer Date Recorded In the past 12 months, has t he electric, gas, oil or water company threatened to shut off services in your home? No 05/19/2023 Depression Answer Date Recorded Patient Health Questionnaire-2 Score 0 01/02/2023 Comments Unknown Sex and Gender Information Value Date Recorded Sex Assigned at Female 06/03/2022 10:40 AM EDT Legal Sex Female 10:40 AM EDT Gender Identity Female 06/03/2022 10:40 AM EDT Sexual Orientation Straight 06/03/2022 10 :40 AM EDT documented as of this encounter Miscellaneous Notes * Telephone Encounter - Samia Correa RN - 06/19/2023 12:51 PM EST Pt. Requesting change in location for PT to [facility] if possible. [facility] * Telephone Encounter - Sandeep Hernandez - 06/19/2023 11:18 AM EST Tc from patients daughter requestingphysical therapy referral to be switch to [facility] due to transportation. documented in this encounter Plan of Treatment Upcoming Encounters Date Type Department Care Team (Late st Contact Info) Description 09/16/2024 2:00 PM EST Office Visit [facility] [address] [place] [address] Gout involving toe of right foot, unspecified cause, unspecified chronicity (Primary Dx); Anemia, unspecified type 09/17/2024 1:45 PM EST Office Visit [facility] [address] [place], [place] [phone] Lupe Moralez FNP [address] [place] [address] documented as of this encounter Visit Diagnoses Not on filedocumented in this encounter Additional Health Concerns Assessment Noted Time PHQ-9 Depression Total Score: 5 01/03/20 2:27 PM EDT documented as of this encounter Care Teams Invasive Cardiologist Relationship Specialty Start Date End Date Lupe Moralez FNP [address] [place] [address] PCP - General Family Medicine 04/16/22 Perry Quintero MD [address] [place] [address] Cardiology 06/14/24 documented as of this encounter
--- OUTSIDE RECORDS SUMMARY | 2024-09-16 13:59 | XMS_ITS | Encounter Summary ---
Author Organization [employer] Address [address] [facility] [address] [place] [address] Care Team Providers Care Case Finisher Name Role Phone Lupe Moralez Primary Care Provider [phone] Perry Quintero MD Unavailable [phone] Reason for Visit * Reason Onset Date Comments question 03/02/2024 Encounter Details Date Type Department Care Team ([facility] st Contact Info) Description 03/02/2024 Telephone [facility] MEDICINE [address] [place] [address] Lupe Moralez FNP [address] [place], [place] [phone] question Social History Tobacco Use Types Packs/Day Years [...] encounter Miscellaneous Notes * Telephone Encounter - Wing Rubin RN - 03/02/2024 1:24 PM EDT Tc to number provided. Was directed to another line to discuss about [facility] locations that are covered by [employer] to get a replacement part for part of a pt's hearing aid. Left message for them to callback as hold was taking a lengthy period of time. * Telephone Encounter - Zhou Rome - 03/02/2024 12:37 PM EDT Tc from get returning phone call to [employer] for a question that was asked, get informs it's an insurance thing gave insurance number [phone] documented in this encounter Plan of Treatment Upcoming Encounters Date Type Department Care Team (Late st Contact Info) Description 09/16/2024 2:00 PM EST Office Visit [facility] [address] [place] [address] Gout involving toe of right foot, unspecified cause, unspecified chronicity (Primary Dx); Anemia, unspecified type 09/17/2024 1:45 PM EST Office Visit [facility] MED [facility] PEDS [address] [place] [address] Lupe Moralez FNP [address] [place] [address] documented as of this encounter Visit Diagnoses Not on filedocumented in this encounter Additional Health Concerns Assessment Noted Time PHQ-9 Depression Total Score: 4 02/09/20 24 10:42 AM EDT documented as of this encounter Care Teams Case Finisher Relationship Specialty Start Date End Date Lupe Moralez FNP [address] [place] [phone] PCP - General Family Medicine 04/16/22 Perry Quintero MD [address] [place] [phone] Cardiology 06/14/24 documented as of this encounter
--- OUTSIDE RECORDS SUMMARY | 2024-09-16 13:59 | XMS_ITS | Encounter Summary ---
Author Organization [employer] Address [address] [facility] 7t [place] [address] Care Team Providers Care Soa Integration Architect Name Role Phone Lupe Moralez Primary Care Provider [phone] Perry Quintero MD Unavailable [phone] Reason for Visit * Reason Onset Date Comments Hospital Follow-up 09/24/2023 Encounter Details Date Type Department Care Team ([facility] st Contact Info) Description 09/24/2023 Telephone [facility] MEDICINE [address] [place] [address] Lupe Moralez FNP [address] [place], [place] [phone] Hospital Follow-up Social History Tobacco Use Types Packs/Day [...] encounter Miscellaneous Notes * Telephone Encounter - Gely Hernandez RN - 09/26/2023 11:24 AM EST Images from the original note were not included. Lupe Moralez, BE Hernandez RN Caller: Unspecified (2 days ago, 2:44 PM) Thank you for letting me know! Please make sure they are scheduled with pharmacy for a pre-visit consult to review med changes. Thank you! Contacted Yanci Morrow via My Ad Box regarding above message and Yanci reached out to [place] to coordinate. Yanci confirmed that Candida will coordinate this pre-visit consult. Routing message back to PCP galo is aware and to Abby Lord. * Telephone Encounter - Gely Hernandez RN - 09/25/2023 3:22 PM EST TC placed to patient via Guitar Party Commercial Assistant and daughter answered. Daughter states patient unable to come to the phone and the moment and that she handles the patient's medical care and can scheduleHFU for her. Daughter explained that patient was having SOB and rising BP and was admitted at [facility]. 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 Daughter states they also adjusted patient's medications. Daughter states patient is doing well at home but is a bit weak and adjusting to changes in her meds. Patient scheduled for next available HFU with PCP per request on 10/06/23 @ 9:30am. Advised to be in touch if they need anything sooner and daughter expressed understanding. Routing note to Bravo Moralez for review. Hospital notes and cardiovascular consult notes describing CHF and recent symptoms in chart. Patient recommended to have f/u visit with cardiovascular team in 4 weeks. Tc from pt requesting a HDF appt. Hospital: [facility] Date of admission: 09/17 Discharge date: 09/19 Diagnosed: Cardiovascular * Telephone Encounter - Sandeep Hernandez - 09/24/2023 2:44 PM EST Tc from pt requesting a HDF appt. Hospital: [facility] Date of admission: 09/17 Discharge date: 09/19 Diagnosed: Cardiovascular documented in this encounter Plan of Treatment Upcoming Encounters Date Type Department Care Team (Late st Contact Info) Description 09/16/2024 2:00 PM EST Office Visit [facility] [address] [place] [address] Gout involving toe of right foot, unspecified cause, unspecified chronicity (Primary Dx); Anemia, unspecified type 09/17/2024 1:45 PM EST Office Visit [facility] CHC MED & PEDS [address] [place] [address] Lupe Moralez FNP [address] [place] [address] documented as of this encounter Visit Diagnoses Not on filedocumented in this encounter Additional Health Concerns Assessment Noted Time PHQ-9 Depression Total Score: 5 01/03/20 23 2:27 PM EDT documented as of this encounter Care Teams Soa Integration Architect Relationship Specialty Start Date End Date Lupe Moralez FNP [address] [place] [address] PCP - General Family Medicine 04/16/22 Perry Quintero MD [address] [place] [address] Cardiology 06/14/24 documented as of this encounter
--- OUTSIDE RECORDS SUMMARY | 2024-09-16 13:59 | XMS_ITS | Encounter Summary ---
Author Organization [employer] Address [address] [facility] 7t [place] [address] Care Team Providers Care Multifocal Button Grinder Name Role Phone Lupe Moralez Primary Care Provider [phone] Perry Quintero MD Unavailable [phone] Encounter Details Date Type Department Care Team ([facility] st Contact Info) Description 11/28/2023 Telephone [facility] MED & PEDS [address] [place] [address] Lupe Moralez FNP [address] [place] [address] Social History Tobacco Use Types Packs/Day Years [...] [facility] [address] [place] [address] Gout involving toe of right foot, unspecified cause, unspecified chronicity (Primary Dx); Anemia, unspecified type 09/17/2024 1:45 PM EST Office Visit [facility] MED & PEDS [address] [place] [address] Lupe Moralez FNP [address] [place] [address] documented as of this encounter Visit Diagnoses Not on filedocumented in this encounter Additional Health Concerns Assessment Noted Time PHQ-9 Depression Total Score: 5 01/03/20 23 2:27 PM EDT documented as of this encounter Care Teams Multifocal Button Grinder Relationship Specialty Start Date End Date Lupe Moralez FNP [address] [place] [address] PCP - General Family Medicine 04/16/22 Perry Quintero MD [address] [place] [address] Cardiology 06/14/24 documented as of this encounter
--- OUTSIDE RECORDS SUMMARY | 2024-09-16 13:59 | XMS_ITS | Encounter Summary ---
Author Organization [employer] Address [address] [facility] 7t [place] [address] Care Team Providers Care Green Marketer Name Role Phone Lupe Moralez Primary Care Provider [phone] Perry Quintero MD Unavailable [phone] Reason for Visit * Reason Onset Date Comments FYI 12/15/2023 Encounter Details Date Type Department Care Team ([facility] Contact Info) Description 12/15/2023 Telephone [facility] MED & PEDS [address] [place] [address] Lupe Moralez FNP [address] [place] [address] FYI Social History Tobacco Use Types Packs/Day Years [...] encounter Miscellaneous Notes * Telephone Encounter - Bessie Davis - 12/15/2023 2:27 PM EDT Tc from [facility] calling to advise provider pt has been discharged from nursing services with all nursing goals met. documented in this encounter Plan of Treatment Upcoming Encounters Date Type Department Care Team (Late st Contact Info) Description 09/16/2024 2:00 PM EST Office Visit [facility] WALK[facility]IN CENTER [address] [place] [address] Gout involving toe of right foot, unspecified cause, unspecified chronicity (Primary Dx); Anemia, unspecified type 09/17/2024 1:45 PM EST Office Visit [facility] CHC MED & PEDS [address] [place] [address] Lupe Moralez FNP [address] [place] [address] documented as of this encounter Visit Diagnoses Not on filedocumented in this encounter Additional Health Concerns Assessment Noted Time PHQ-9 Depression Total Score: 5 01/03/20 23 2:27 PM EDT documented as of this encounter Care Teams Green Marketer Relationship Specialty Start Date End Date Lupe Moralez FNP [address] [place] [address] PCP - General Family Medicine 04/16/22 Perry Quintero MD [address] [place] [address] Cardiology 06/14/24 documented as of this encounter
[2024-09-16 16:13] LABS: Eosinophils Absolute Auto 0.2 X10*3/uL (0.0-0.4); Hemoglobin 9.8 g/dl (12.0-16.0); Lymphocytes Percent Auto 11.3 % (20-40); Red Cell Distribution Width 14.7 % (11.0-16.0); SCAN SMEAR FLAG 1
[2024-09-16 16:15] LABS: Basophils Absolute Auto 0.1 X10*3/uL (0.0-0.2); Basophils Percent Auto 0.6 % (0-2); Eosinophils Percent Auto 2.6 % (0-4); Hematocrit 31.8 % (37.0-47.0); Imm Gran Abs Auto 0.04 X10*3/uL (0.00-0.03); Imm Gran Pct Auto 0.4 % (0.0-0.4); Immature Retic Fraction 25.5 % (3.0-15.9); Lymphocytes Absolute Auto 1.1 X10*3/uL (1.2-4.9); MANUAL DIFF FLAG SCAN; Mean Corpuscular HGB Conc 30.8 g/dl (31.0-35.0); Mean Corpuscular Hemoglobin 27.5 pg (27.0-33.0); Mean Corpuscular Volume 89.1 fL (80.0-98.0); Monocytes Absolute Auto 0.6 X10*3/uL (0.1-1.2); Monocytes Percent Auto 6.4 % (2-11); Neutrophils Absolute Auto 7.4 x10*3/uL (2.0-8.3); Neutrophils Percent Auto 78.7 % (45-73); Platelet Count 274 X10*3/uL (160-400); Red Blood Count 3.57 X10*6/uL (4.20-5.50); Retic HGB Equivalent 24.3 pg (30.0-35.0); White Blood Count 9.4 X10*3/uL (4.8-10.8)
[2024-09-16 16:16] LABS: RET ABN SCTR 1
[2024-09-16 16:49] LABS: Ferritin 53 ng/mL (10-250)
[2024-09-16 17:53] LABS: SLIDE REVIEW VERIFIED
[2024-09-16 17:58] LABS: Reticulocyte Percent 2.2 % (0.5-1.8)
[2024-09-16 19:06] LABS: Iron 20 mcg/dL (30-160); Percent Iron Saturation 8 % (15-50); Total Iron Binding Capacity 258 mcg/dL (228-428); Unsaturated Iron Binding 238 ug/dL; Uric Acid 5.9 mg/dL (2.4-5.7)
== END 2024-09-16 13:55 | disposition home or self-care (01) ==
LOC: HO.HHCL 13:54
PROVIDERS: Registered Nurse; Visit Provider Family Medicine
DX: D64.9 Anemia, unspecified (principal); M10.9 Gout, unspecified
CPT/HCPCS: 36415; 82306; 82728; 83540; 84550; 85025; 85045

== ENCOUNTER 2024-09-23 13:22 | Outpatient (REF) | payer OTHER, SELFPAY ==
--- NOTE | ~2024-09-23 | XR_ITS ---
EXAMINATION: XR FOOT, RIGHT CLINICAL INFORMATION: pain COMPARISON: None available. TECHNIQUE: AP, lateral, and oblique views of the right foot. FINDINGS: Degenerative changes in the first metatarsophalangeal joint and the interphalangeal joints of the toes. There is a mild lateral deviation of the first metatarsophalangeal joint. No acute cortical disruption or gross malalignment. Osteopenia versus osteoporosis. Small exostosis at the Achilles tendon insertion. Vascular calcifications. No subcutaneous emphysema. XR/XR foot RT min 3V IMPRESSION: Osteoarthrosis without acute fracture or dislocation. Hallux valgus deformity, mild, first metatarsophalangeal joint. Electronically signed by: Crescencio Fletcher MD 09/23/2024 02:00 PM [facility]IS[facility]CED[facility]
--- OUTSIDE RECORDS SUMMARY | 2024-09-23 14:16 | XMS_ITS | Data Portability ---
Author Organization [employer] Address [address] [place] [id number] Care Team Providers Care Welder Gas Name Role Phone [facility] Referring Provider HIM CCA OTHER Assessment [...] Orders prednisone 20 mg tablet 2022 023 [facility], [address] [place] [address], [id number], 3 18:51:06 prednisone 20 mg tablet 2022 023 [facility], [address] [place] [address], [id number], 3 18:38:05 ipratropium 0.5 mg-albutero l 3 mg (2.5 mg base)/3 mL nebulizatio n soln 2022 023 [facility], [address] [place] [address], [id number], 3 18:51:10 albuterol sulfate HFA 90 mcg/actuati on aerosol inhaler 2022 023 [id number], [address] [facility], [place], [place], [id number], 3 19:15:11 albuterol sulfate 2.5 mg/3 mL [...] Time 9114 Product containin g penicilli n (product) medicatio n Not available Not available Not available 06/01/2024 55026 8001 SNOMED Not Available [employer] - production 4 [...] Available Not Available No t Available [employer] Cam[place] Lite kit USE DIRECTED active Not Available [...] Address Organization Details Last Updated DateTime 2 597860. 792 g 18 /min 98.5 [degF] 74 /min 165.1 cm 96 % 96 % 101 mm[Hg] 68 mm[Hg] Not Available [employer] 2 16:36:35 Date Recorded Heart rate Body temperature Oxygen saturation Oxygen saturation in Arterial blood by Pulse oximetry Body weight Respiratory rate Systolic blood pressure Diastolic blood pressure Provider Name and Address Organization Details Last Updated DateTime 3 66 /min 98.4 [degF] 95 % 95 % 57310.2 56 g 16 /min 109 mm[Hg] 48 mm[Hg] Not Available [employer] 3 18:59:59 Date Recorded Body weight Oxygen saturation Oxygen saturation in Arterial blood by Pulse oximetry Heart rate Body temperature Respiratory rate Systolic blood pressure Diastolic blood pressure Provider Name and Address Organization Details Last Updated DateTime 3 41812.3 6 g 97 % 97 % 80 /min 97.7 [degF] 14 /min 96 mm[Hg] 52 mm[Hg] Not Available [employer] 3 18:35:18 Social History None recorded. Functional [...] Note 5855 Moise Chapa MD Main - [address] [phone] 07/08/2022 16:12:20 08/11/2023 11:58:45 Gastroesophageal reflux disease [id number] K21.00 This 76-year-ol d female called vaughnED yana cleary of moderately severe abdominal pain. When the offset proof press operator arrived, she seemed to indicate heartburn and [...] patient agreed with this plan. 6892 Tiffany Saravia MD Main - [facility] [address] [place] [phone] 08/12/2022 18:59:54 08/14/2022 10:30:11 Exacerbation of intermittent asthma [id number] J45.21 76y F with PMH CHF and asthma with mild asthma exacerbati on. Recently moved from [place]. No prior need for steroid treatment in setting of asthma. VSS. Responded well to albuterol nebs suggesting asthma over CHF. Will send inhaler to pharmacy. Encourage patient to f/u with primary care office to receive inhalers and to call us or primary care office if symptoms not improving with albuterol alone or if worsening. 85649 Yunior Berman MD Main - [facility] [address] [place] [phone] 12/23/2022 18:35:12 12/24/2022 14:44:55 Acute exacerbation of chronic obstructive pulmonary disease [id number] J44.1 Health Concerns Section Related Observation LastModified by Organization Detai ls LastModified Time None Recorded Concern Status LastModified by Organization Details LastModified Time None Recorded Advance Directives Directive None Recorded Payers Encounter Date Sequence Insurance Name Policy Number Policy Chavez Covered Member ID Chavez Member ID Guarantor Name 07/08/2022 1 [facility] (MEDICARE REPLACEMENT/ADV ANTAGE - PPO) Charleen Fajardo Hines [id number] Charleenjulian Romerooza 08/12/2022 1 [facility] [employer] - DOS PRIOR TO 2022 - DUAL ELIGIBLE (MEDICARE REPLACEMENT/ADV ANTAGE - HMO) Charleen Sorensengoshine RomeroHines [id number] Charleen Sorensengoshine RomeroHines 12/23/2022 1 [facility] [employer] - DOS PRIOR TO 2022 - DUAL ELIGIBLE (MEDICARE REPLACEMENT/ADV ANTAGE - HMO) Charleen Romerooza [id number] Charleen Hines Notes Date Note Type Note Provider [...] yellow. BP 106/60. Blood sugar 107. Advised dgjarret that given the constant 10/10 abdominal pain, [...] ................... ................... ................... ................... ................... ................... ........ Swim Coach Note: Sent to a call for a pt complaining of abd pain and dizziness. SC8 arrives on scene, pt is alert and oriented. Airway is patent. Pt and daughter speak Yi. Senior Embedded Software Engineer line used. Pt was treated for Covid [...] non-tender, no distention; Skin: pink, warm, dry; [facility] orders Mylanta PO. Pt advised to stay hydrated, buy Prilosec OTC and follow up with PCP. Red flags discussed. Pt/daughter have no further questions. ................... ................... ................... ................... ................... ................... ................... ........ Disposition: Fulfilled Moise Chapa MD [address] [facility],[address], [place], [address], [employer] 09/06/2022 19:09:07 08/12/2022 text/html HPI: cough since [...] no further information needed to process visit [facility] HPI: automotive parts interpreter on the lineCHF on lasix and spironolactone, dry cough with chest tightness since Friday. Also some mild shortness of breath. reports possible history of asthma but not on any inhalers. no sick contacts. no rhinorrhea or pharyngitis. has been on inhalers in the past but none currently. Tiffany Saravia MD [address] [place] [address],[address], [place], [address], [employer] 08/12/2022 19:36:51 12/23/2022 text/html HPI: Patient with onset of illness several days ago. No known fever. Had headache and runny nose. Now with productive cough with yellow phlegm. Using albuterol inhaler x 3 today. Patient listed with VAMSI unknown use of CPAP. Please evaluate equipment if in use at home. ................... ................... ................... ................... ................... ................... ................... ........ CRC Nursing Assessment: Comments: Review request no further information needed to process visit ................... ................... ................... ................... ................... ................... ................... ........ Swim Coach Note From Wally Bajwa: Pt reports dry [...] worsening sx which are reviewed with her. [facility] Medication Orders: prednisone 20 mg tablet: Administered Swim Coach Allergies: Penicillin ................... ................... ................... ................... ................... ................... ................... ........ Disposition: Fulfilled Yunior Berman MD [address] [place] [address],[address] [facility], [place], [address], [employer] [facility] 12/23/2022 19:20:03 OBGyn Episode No OBEpisode recorded.
--- OUTSIDE RECORDS SUMMARY | 2024-09-23 14:16 | XMS_ITS | Encounter Summary ---
Author Organization [facility] Address [address] [facility] 7t [place] [address] Care Team Providers Care Instrument Maker Name Role Phone Lupe Moralez Primary Care Provider [phone] Perry Quintero MD Unavailable [phone] Encounter Details Date Type Department Care Team (Late st Contact Info) Description 03/18/2023 Abstract [facility] MEDICINE [address] [place], [place] [phone] Lupe Moralez FNP [address] [place], [place] [phone] Social History Tobacco Use Types Packs/Day Years [...] Care Team (Late st Contact Info) Description 09/24/2024 1:45 PM EST Office Visit [facility] CHC MED & PEDS [address] [place], [place] [phone] Lupe Moralez FNP [address] [place], [place] [phone] 09/29/2024 2:00 PM EST Medication Management [facility] MED[facility] [address] [place] [address] documented as of this encounter Visit Diagnoses Not on filedocumented in this encounter Additional Health Concerns Assessment Noted Time PHQ-9 Depression Total Score: 5 01/03/20 23 2:27 PM EDT documented as of this encounter Care Teams Instrument Maker Relationship Specialty Start Date End Date Lupe Moralez FNP [address] [place] [address] PCP - General Family Medicine 04/16/22 Perry Quintero MD [address] [place] [address] Cardiology 06/14/24 documented as of this encounter
--- OUTSIDE RECORDS SUMMARY | 2024-09-23 14:16 | XMS_ITS | Clinical Summary ---
Author Organization [facility] Address [address] [place] [address] Care Team Providers Care Jingle Writer Name Role Phone Unavailable Primary Care Provider [...] patient's age to complete this topic Insurance [facility] ([id number]) [facility] ([id number])
--- OUTSIDE RECORDS SUMMARY | 2024-09-23 14:17 | XMS_ITS | Encounter Summary ---
Author Organization [employer] Address [address] [facility] 7t [place] [address] Care Team Providers Care Time Clock Mechanic Name Role Phone Lupe Moralez BE Primary Care Provider [phone] Perry Quintero MD Unavailable [phone] Reason for Visit * Reason Comments Foot Pain Encounter Details Date Type Department Care Team (Late st Contact Info) Description 09/16/2024 2:00 PM EST Office Visit [facility] [address] [place], [place] [phone] Bernice Lamb MD [address] [place], [place] [phone] Gout involving toe of right foot, unspecified [...] Recorded Patient Health Questionnaire-2 Score 0 02/09/2024 Internet Access Answer Date Recorded Internet Access Q1 No 09/17/2024 Internet Access Q2 I do not want or need it 09/04 Comments Unknown Sex and Gender Information Value [...] 1:31 PM EST documented in this encounter Progress Notes * Deana Doan - 09/16/2024 2:00 PM EST Subjective Patient ID: Charleen Hines is a 79 y.o. female with past medical history of HFrEF w/ ICD implant, T2DM, hypothyroid, VAMSI on CPAP, CAD, cardiomyopathy, severe aortic stenosis s/p TAVR, right breast CA s/p mastectomy, GERD, and CKD who presents to walk in clinic for Foot Pain. Pt reports she went to [place] on 09/02/24 and on 09/09/24 she went to the ER in [place] and her hemoglobin was 4 so she has blood transfusion on 09/11/24. Just got back last night. She denies BRBPR or melanotic stool. Lab Results Component Value Date HGB 9.7 (L) 06/14/2024 HGB 11.6 (L) 09/17/2023 HGB 12.2 04/16/2022 HEMATOCRIT 36.5 04/16/2022 Per caregiver, hemaglobin was 4 in [place] 09/2023 She reports since then she has had pain and redness to her toe on her right foot. No injury or trauma. Has follow-up with her PCP tomorrow. Review of Systems Constitutional: Negative for fever and unexpected weight change. Respiratory: Negative for shortness of breath. Cardiovascular: Negative for chest pain. Gastrointestinal: Negative for abdominal pain. Genitourinary: Negative for difficulty urinating. Musculoskeletal: Foot pain Objective Visit Vitals BP 131/67 (BP Location: Left arm, Patient Position: Sitting, BP Cuff Size: Large adult) Pulse 93 Temp 97.5 ??F (36.4 ??C) (Temporal) Resp 18 Body mass index is 34.19 kg/m??. Physical Exam Constitutional: Appearance: Normal appearance. Cardiovascular: Rate and Rhythm: Normal rate. Pulmonary: Effort: Pulmonary effort is normal. Feet: Comments: Base of toe on right foot warm, tender Neurological: General: No focal deficit present. Mental Status: She is alert. Psychiatric: Behavior: Behavior normal. Problem List Items Addressed This Visit Gout involving toe of right foot - Primary Likely gout of toe on right foot. [...] (around 4 to 6 ounces per day). Relevant Medications predniSONE (Deltasone) 20 MG tablet Other Relevant Orders Uric acid Anemia Etiology unknown. Seen in [place] on 09/09/24 and had Hgb of 4. Got transfusion of about 6 units of blood on 09/11/24. Requesting records from [place]. -ordered CBC -has follow-up tomorrow. Relevant Orders CBC auto differential -No evidence of acute disease process. Suspect gout. Symptoms mild. -Will treat with steroids. -ER precautions discussed. -Seek medical attention for [...] ESTAssociated Problem(s): Anemia Etiology unknown. Seen in [place] on 09/09/24 and had Hgb of 4. Got transfusion of about 6 units of blood on 09/11/24. Requesting records from [place]. -ordered CBC -has follow-up tomorrow. * Assessment [...] Description 09/24/2024 1:45 PM EST Office Visit [facility] MED & PEDS [address] [place] [address] Lupe Moralez, HYDRAULIC OPERATOR [address] [place] [address] 09/29/2024 2:00 PM EST Medication Management [facility] MED[facility] [address] [place] [address] Scheduled Orders Name Type Priority Associated Diagnoses Orde r Schedule CBC auto differential Lab Routine Anemia, unspecified type Expected: 09/16/2024, Expires: 09/16/2025 documented as of this encounter Procedures Procedure Name Priority Date/Time Associated Diagnosis Comments URIC ACID Routine 09/16/2024 1:56 PM EST Gout involving toe of right foot, unspecified cause, unspecified chronicity documented in this encounter Results * (ABNORMAL) Uric acid (09/16/2024 1:56 PM EST) Uric Acid 5.9(H) 2.4 - 5.7 mg/dL [facility] Blood Venous blood specimen / Unknown 09/16/2024 1:56 PM EST 09/16/2024 4:02 PM EST us Bernice Lamb MD LAB BLOOD ORDERABLES Final Result [facility] [address] [place] [address] [phone] documented in this encounter Visit Diagnoses Diagnosis Gout involving toe of right foot, unspecified cause, unspecified chronicity- Primary Anemia, unspecified type documented in this encounter Additional Health Concerns Assessment Noted Time PHQ-9 Depression Total Score: 4 02/09/20 24 10:42 AM EDT documented as of this encounter Care Teams Time Clock Mechanic Relationship Specialty Start Date End Date Lupe Moralez FNP [address] [place] [address] PCP - General Family Medicine 04/16/22 Perry Quintero MD [address] [place] [address] Cardiology 06/14/24 documented as of this encounter
--- OUTSIDE RECORDS SUMMARY | 2024-09-23 14:17 | XMS_ITS | Encounter Summary ---
Author Organization [employer] Address [address] [facility] 7t [place] [address] Care Team Providers Care Mitering Machine Operator Name Role Phone Lupe Moralez Primary Care Provider [phone] Perry Quintero MD Unavailable [phone] Reason for Visit * Reason Onset Date Comments Med Refill 08/16/2024 Encounter Details Date Type Department Care Team ([facility] st Contact Info) Description 08/16/2024 Telephone [facility] MED & PEDS [address] [place] [address] Lupe Moralez FNP [address] [place] [address] Med Refill Social History Tobacco Use Types [...] 24 hr tablet To be sent to: [facility] - [place], [place] - [address] [facility] documented in this encounter Plan of Treatment Upcoming Encounters Date Type Department Care Team (Late st Contact Info) Description 09/24/2024 1:45 PM EST Office Visit [facility] MED & PEDS [address] [place], [place] [phone] Lupe Moralez FNP [address] [place], [place] [phone] 09/29/2024 2:00 PM EST Medication Management [facility] MED[facility] [address] [place] [address] documented as of this encounter Visit Diagnoses Not on filedocumented in this encounter Additional Health Concerns Assessment Noted Time PHQ-9 Depression Total Score: 4 02/09/20 24 10:42 AM EDT documented as of this encounter Care Teams Mitering Machine Operator Relationship Specialty Start Date End Date Lupe Moralez FNP [address] [place] [address] PCP - General Family Medicine 04/16/22 Perry Quintero MD [address] [place] [address] Cardiology 06/14/24 documented as of this encounter
--- OUTSIDE RECORDS SUMMARY | 2024-09-23 14:17 | XMS_ITS | Encounter Summary ---
Author Organization [employer] Address [address] [facility] 7t [place] [address] Care Team Providers Care Gun Striper Name Role Phone Lupe Moralez Primary Care Provider [phone] Perry Quintero MD Unavailable [phone] Reason for Visit * Reason Comments Med Refill Encounter Details Date Type Department Care Team ([facility] st Contact Info) Description 05/31/2024 Refill [facility] MED[facility] [address] [place] [address] Lupe Moralez FNP [address] [place], [place] [phone] Gastroesophageal reflux disease, unspecified whether esophagitis present [...] Description 09/24/2024 1:45 PM EST Office Visit [facility] [address] [place] [address] Lupe Moralez FNP [address] [place] [address] 09/29/2024 2:00 PM EST Medication Management [facility] [address] [place] [address] documented as of this encounter Visit Diagnoses Diagnosis Gastroesophageal reflux disease, unspecified whether esophagitis present documented in this encounter Additional Health Concerns Assessment Noted Time PHQ-9 Depression Total Score: 4 02/09/20 24 10:42 AM EDT documented as of this encounter Care Teams Gun Striper Relationship Specialty Start Date End Date Lupe Moralez FNP [address] [place] [address] PCP - General Family Medicine 04/16/22 Perry Quintero MD [address] [place] [address] Cardiology 06/14/24 documented as of this encounter
--- OUTSIDE RECORDS SUMMARY | 2024-09-23 14:17 | XMS_ITS | Encounter Summary ---
Author Organization [employer] Address [address] [facility] 7t [place] [address] Care Team Providers Care Data Migration Consultant Name Role Phone Lupe Moralez Primary Care Provider [phone] Perry Quintero MD Unavailable [phone] Reason for Visit * Reason Onset Date Comments Medication Question 08/24/2024 Encounter Details Date Type Department Care Team ([facility] st Contact Info) Description 08/24/2024 Telephone [facility] MEDICINE [address] [place] [address] Lupe Moralez FNP [address] [place], [place] [phone] Medication Question Social History Tobacco Use Types [...] EST TC placed to pt with S retail stocker New #[id number] to inquire on the request for Glipizide [...] Upcoming Encounters Date Type Department Care Team ([facility] Contact Info) Description 09/24/2024 1:45 PM EST Office Visit [facility] MED [facility] PEDS [address] [place] [address] Lupe Moralez FNP [address] [place] [address] 09/29/2024 2:00 PM EST Medication Management [facility] MEDICINE [address] [place] [address] documented as of this encounter Visit Diagnoses Not on filedocumented in this encounter Additional Health Concerns Assessment Noted Time PHQ-9 Depression Total Score: 4 02/09/20 24 10:42 AM EDT documented as of this encounter Care Teams Data Migration Consultant Relationship Specialty Start Date End Date Lupe Moralez FNP [address] [place] [address] PCP - General Family Medicine 04/16/22 Perry Quintero MD [address] [place] [address] Cardiology 06/14/24 documented as of this encounter
--- OUTSIDE RECORDS SUMMARY | 2024-09-23 14:17 | XMS_ITS | Encounter Summary ---
Author Organization [facility] Address [address] [place] [address] 7t [place] [address] Care Team Providers Care Truck Sales Representative Name Role Phone Lupe Moralez Primary Care Provider [phone] Perry Quintero MD Unavailable [phone] Encounter Details Date Type Department Care Team ([facility] Contact Info) Description 11/07/2022 Abstract [facility] MEDICINE [address] [place], [place] [phone] Lupe Moralez FNP [address] [place], [place] [phone] Social History Tobacco Use Types Packs/Day Years [...] Upcoming Encounters Date Type Department Care Team ([facility] Contact Info) Description 09/24/2024 1:45 PM EST Office Visit [facility]ED[facility] [address] [place], [place] [phone] Lupe Moralez FNP [address] [place] [address] 09/29/2024 2:00 PM EST Medication Management [facility] MED[facility] [address] [place] [address] documented as of this encounter Visit Diagnoses Not on filedocumented in this encounter Care Teams Truck Sales Representative Relationship Specialty Start Date End Date Lupe Moralez FNP [address] [place] [address] PCP - General Family Medicine 04/16/22 Perry Quintero MD [address] [place] [address] Cardiology 06/14/24 documented as of this encounter
--- OUTSIDE RECORDS SUMMARY | 2024-09-23 14:17 | XMS_ITS | Encounter Summary ---
Author Organization [employer] Address [address] [facility] 7t [place] [address] Care Team Providers Care Wireless Manager Name Role Phone Lupe Moralez Primary Care Provider [phone] Perry Quintero MD Unavailable [phone] Reason for Visit * Reason Comments Med Refill Encounter Details Date Type Department Care Team (Late st Contact Info) Description 08/21/2024 Refill [facility] MED[facility]INE [address] [place] [address] Lupe Moralez FNP [address] [place], [place] [phone] Social History Tobacco Use Types Packs/Day Years [...] Description 09/24/2024 1:45 PM EST Office Visit [facility] PED[facility] [address] [place] [address] Lupe Moralez FNP [address] [place] [address] 09/29/2024 2:00 PM EST Medication Management [facility] [address] [place] [address] documented as of this encounter Visit Diagnoses Not on filedocumented in this encounter Additional Health Concerns Assessment Noted Time PHQ-9 Depression Total Score: 4 02/09/20 24 10:42 AM EDT documented as of this encounter Care Teams Wireless Manager Relationship Specialty Start Date End Date Lupe Moralez FNP [address] [place] [address] PCP - General Family Medicine 04/16/22 Perry Quintero MD [address] [place] [address] Cardiology 06/14/24 documented as of this encounter
--- OUTSIDE RECORDS SUMMARY | 2024-09-23 14:17 | XMS_ITS | Encounter Summary ---
Author Organization [employer] Address [address] [facility] 7t [place] [address] Care Team Providers Care Control Technician Name Role Phone Lupe Moralez Primary Care Provider [phone] Perry Quintero MD Unavailable [phone] Encounter Details Date Type Department Care Team ([facility] st Contact Info) Description 01/03/2023 Telephone [facility] MEDICINE [address] [place] [address] Lupe Moralez FNP [address] [place] [address] Social History Tobacco Use Types Packs/Day Years [...] - 01/09/2023 9:04 AM EDT T/c to [phone] to [employer] to inform below message from provider, No answer. LVM to call back [phone]. * Telephone Encounter - BE Chavez - 01/09/2023 7:41 AM EDT DME request for nebulizer generated. Thank you. * Telephone Encounter - Esthela Hidalgo - 01/03/2023 12:55 PM EDT Tc from [employer] from [facility] requesting a nebulizer machine . Any question please call phone # [phone] ext [phone]. Please fax order to [phone] documented in this encounter Plan of Treatment Upcoming Encounters Date Type Department Care Team (Late st Contact Info) Description 09/24/2024 1:45 PM EST Office Visit [facility] MED [facility] PEDS [address] [place] [address] Lupe Moralez FNP [address] [place] [address] 09/29/2024 2:00 PM EST Medication Management [facility] MEDICINE [address] [place] [address] documented as of this encounter Visit Diagnoses Not on filedocumented in this encounter Additional Health Concerns Assessment Noted Time PHQ-9 Depression Total Score: 5 01/03/20 23 2:27 PM EDT documented as of this encounter Care Teams Control Technician Relationship Specialty Start Date End Date Lupe Moralez FNP [address] [place] [address] PCP - General Family Medicine 04/16/22 Perry Quintero MD [address] [place] [address] Cardiology 06/14/24 documented as of this encounter
--- OUTSIDE RECORDS SUMMARY | 2024-09-23 14:17 | XMS_ITS | Encounter Summary ---
Author Organization [employer] Address [address] [facility] [address]t [place] [address] Care Team Providers Care Log Hooker Name Role Phone ClarissaLupe alegria BE Primary Care Provider [phone] Perry Quintero MD Unavailable [phone] Reason for Visit * Reason Comments Neck Pain Encounter Details Date Type Department Care Team ([facility] st Contact Info) Description 08/27/2024 11:00 AM EST Office Visit [facility] [address] [place], [place] [phone] Bernice Lamb MD [address] [place], [place] [phone] Cervical paraspinal muscle spasm (Primary Dx); Spasm [...] Description 09/24/2024 1:45 PM EST Office Visit [facility] MED [facility] PEDS [address] [place] [address] Lupe Moralez FNP [address] [place] [address] 09/29/2024 2:00 PM EST Medication Management [facility] MEDICINE [address] [place] [address] documented as of this encounter Visit Diagnoses Diagnosis Cervical paraspinal muscle spasm- Primary Spasm of muscle Spasm of muscle of lower back documented in this encounter Additional Health Concerns Assessment Noted Time PHQ-9 Depression Total Score: 4 02/09/20 24 10:42 AM EDT documented as of this encounter Care Teams Log Hooker Relationship Specialty Start Date End Date Lupe Moralez FNP [address] [place] [address] PCP - General Family Medicine 04/16/22 Perry Quintero MD [address] [place] [address] Cardiology 06/14/24 documented as of this encounter
--- OUTSIDE RECORDS SUMMARY | 2024-09-23 14:17 | XMS_ITS | Encounter Summary ---
Author Organization [employer] Address [address] [facility] 7t [place] [address] Care Team Providers Care Patient Companion Name Role Phone Lupe Moralez Primary Care Provider [phone] Perry Quinteor MD Unavailable [phone] Reason for Visit * Reason Onset Date Comments triage 12/23/2022 Encounter Details Date Type Department Care Team ([facility] st Contact Info) Description 12/23/2022 Telephone [facility] MEDICINE [address] [place] [address] Lupe Moralez FNP [address] [place], [place] [phone] triage Social History Tobacco Use Types Packs/Day [...] Triage call returned to patient Daughter via [employer] Link Trainer Operator [phone]. Patient with onset of flu like symptoms [...] Wheezing The caller accepted this outcome speaks cuban documented in this encounter Plan of Treatment Upcoming Encounters Date Type Department Care Team ([facility] st Contact Info) Description 09/24/2024 1:45 PM EST Office Visit [facility] MED & PEDS [address] [place] [address] Lupe Moralez FNP [address] [place], [place] [address] 09/29/2024 2:00 PM EST Medication Management [facility] MED[facility] [address] [place] [address] documented as of this encounter Visit Diagnoses Not on filedocumented in this encounter Care Teams Patient Companion Relationship Specialty Start Date End Date Lupe Moralez FNP [address] [place] [address] PCP - General Family Medicine 04/16/22 Perry Quintero MD [address] [place] [address] Cardiology 06/14/24 documented as of this encounter
--- OUTSIDE RECORDS SUMMARY | 2024-09-23 14:17 | XMS_ITS | Clinical Summary ---
Author Organization [employer] Address [address] [place] [address] [address] [place] [address] Care Team Providers Care Machine Clothing Worker Name Role Phone Lupe Moralez BE Primary Care Provider [phone] Perry Quintero MD Unavailable [phone] Allergies Active Allergy Reactions Criticality Noted [...] 023 Active Blood Glucose Monitoring Suppl (FreeStyle Irvine Lite) w/Device kitIndications:Typ e 2 diabetes mellitus without complication, without long-term current use of insulin ([facility]) USE DIRECTED 1 kit 024 Active albuterol (2.5 MG/3ML) 0.083% nebulizer solutionIndication s:Shortness of breath Take 3 mL (2.5 mg) by nebulization every 6 (six) hours if needed for wheezing. 75 mL 11 024 Active gabapentin (Neurontin) 600 MG tabletIndications: Neuropathy TAKE 1 TABLET BY MOUTH EVERY EVENING 90 tablet 3 024 Active spironolactone (Aldactone) 25 MG tabletIndications: Coronary arteriosclerosis TAKE 1 TABLET BY MOUTH EVERYDAY AT NOON 90 tablet 1 024 Active Eliquis 5 MG tablet Take 1 tablet by mouth 2 times daily. 024 Active clopidogrel (Plavix) 75 MG tablet Take [...] tabletIndications: Heart failure with reduced ejection fraction ([facility]) TAKE 1 TABLET BY MOUTH EVERY DAY [...] mouth Once per day. 90 tablet 1 Active TRUEplus Lancets 33G miscIndications:Ty pe 2 diabetes mellitus without complication, without long-term current use of insulin ([facility]) TEST BLOOD SUGAR TWICE DAILY AND NEEDED 100 each 11 Active gabapentin (Neurontin) 300 MG capsuleIndications :Neuropathy [...] or shortness of breath. 18 g 11 Active metFORMIN (Glucophage) 500 MG tabletIndications: Type 2 diabetes mellitus without complication, without long-term current use of insulin (CMS/HCC) TAKE 1 TABLET BY MOUTH TWICE DAILY AT NOON AND IN THE EVENING WITH MEALS 180 tablet 1 Active acetaminophen (Tylenol Extra Strength) 500 MG [...] DAILY NEEDED FOR CONSTIPATION 550 g 3 Active pantoprazole (ProtoNix) 40 MG EC tablet [...] for 5 days 10 tablet 025 Active traZODone (Desyrel) 50 MG tabletIndications: Sleep difficulties TAKE 1/2 TO 1 TABLET BY MOUTH AT BEDTIME NEEDED FOR SLEEP 30 tablet 3 025 Active glipiZIDE XL (Glucotrol XL) 5 MG 24 hr tabletIndications: Type 2 diabetes mellitus without complication, without long-term current use of insulin (CMS/HCC) Take 1 tablet (5 mg) by mouth Once per day if fasting blood sugar above 150. Do not crush, chew, or split. 30 tablet 11 025 Active atorvastatin (Lipitor) 40 MG tablet TAKE 1 TABLET BY MOUTH EVERY EVENING 90 tablet 3 025 Active levothyroxine (Synthroid, Levoxyl) 88 MCG tabletIndications: Hypothyroidism, unspecified type TAKE 1 TABLET BY MOUTH EVERY MORNING 90 tablet 3 025 Active atorvastatin (Lipitor) 40 MG tablet Take 1 tablet (40 mg) by mouth at bedtime. 90 tablet 3 024 2024 Discontinued levothyroxine (Synthroid, Levoxyl) 88 MCG tabletIndications: Hypothyroidism, unspecified type Take 1 tablet (88 mcg) by mouth in the morning. 90 tablet 3 024 2024 Discontinued tiZANidine (Zanaflex) 2 MG tabletIndications: Spasm of muscle of lower back Take 1 tablet (2 mg) by mouth Once daily as needed for muscle spasms. 30 tablet 024 2024 Discontinued(R eorder (will not trigger notification to Pharmacy)) traZODone (Desyrel) 50 MG tabletIndications: Sleep difficulties TAKE 1/2 TO 1 TABLET BY MOUTH AT BEDTIME NEEDED FOR SLEEP 30 tablet 3 024 2024 Discontinued Active Problems Problem Noted Date Diagnosed Date Gout involving toe of right foot 09/16/2024 Assessment & Plan (09/17/2024 8:04 PM EST): - Continue with prednisone (monitor BG) - Requesting to check XR w/ hx of bony abnormality of the foot - xray ordered Assessment & Plan (09/16/2024 1:47 PM EST): [...] to 6 ounces per day). Anemia 09/16/2024 Overview (09/17/2024): Lab Results Component Value Date HGB 9.8 (L) 09/16/2024 HGB 9.7 (L) 06/14/2024 HGB 11.6 (L) 09/17/2023 HGB 11.7 (L) 03/15/2023 HGB 12.9 02/02/2023 - Ferritin and Vit D wnl Sep 2024 Assessment & Plan (09/17/2024 7:57 PM EST): Etiology unknown - GIB in differential. Risk factors: AC Seen in [place] on 09/09/24 and had Hgb of 4.9. Recieved transfusion of about 6 units of blood on 09/11/24. Records requested from [place], available lab work reviewed and sent to scan. Referral to [facility] Heme/Onc and [facility] for further eval ED precautions reviewed Assessment & Plan (09/16/2024 1:49 PM EST): Etiology unknown. Seen in [place] on 09/09/24 and had Hgb of 4. Got transfusion of about 6 units of blood on 09/11/24. Requesting records from [place]. -ordered CBC -has follow-up tomorrow. Spasm of [...] location: [facility] with Roxy Sanon. Referral to [facility] Audiology placed 02/13/24 Also in need of [...] 10-15% on 11/21/23 11/25/23: ICD Implant at [facility] with Dr. Jacob 12/23/23: EF improved [...] Followed by [facility] (Dr. José Miguel Mojica) Gastroesophageal reflux disease 02/27/2023 Overview (02/27/2023): -Pt reports med has been helpful for symptom control -Switch from omeprazole to pantoprazole as less med interaction with plavix Assessment & Plan (02/27/2023 12:54 PM EDT): -Increase to pantoprazole 20-40mg daily -Reports previous eval with endoscopy and colonoscopy in [place] approx 2 years with rec for follow [...] Plan (10/07/2023 4:40 PM EST): [facility] & Dr. Brennan Cardiac stent [...] (06/14/2023 12:10 PM EST): ?? [facility] Qu[facility] & Dr. Brennan ?? Cardiac [...] (02/27/2023 12:54 PM EDT): ?? [facility] ?? Cardiac stent placement on 12/17/16 ?? Current cardiac regimen: ?? carvedilol 12.5mg BID ?? DC December 2022 ?? Entresto 24-26mg BID ?? furosemide 20mg daily ?? spironolactone 25mg daily. ?? Antiplatelet - clopidogrel 75 mg daily ?? Statin - simvastatin 20mg nightly Denies chest pain, SOB, palpitations, N/V/D. Assessment & Plan (01/05/2023 3:36 PM EDT): ?? Followed by [facility] Dr. Quintero ?? Cardiac stent placement on [...] diabetes mellitus without complication Assessment & Plan (09/17/2024 7:56 PM EST): Lab Results Component Value Date HGBA1C 6.9 (A) 09/17/2024 -A1c & lipids well controlled -Eye Exam: established with ophthalmology -Dental: referral to [facility] 09/05/23 -Monofilament: abnormal on 04/16/22 and pt referred to podiatry -ACEi/ARB: yes -Statin: yes -Cont metformin 500mg BID (decrease due to last eGFR < 45) - Now also with Farxiga 10mg daily for indication of CHF - Glipizide 5mg daily PRN FBG > 150 -Reviewed med safety and side effects -Lifestyle interventions encouraged Lab Results Component Value Date CHOL 112 06/14/2024 CHOL 116 12/23/2023 CHOL 128 11/01/2022 TRIG 167 (H) 06/14/2024 TRIG 108 12/23/2023 TRIG 101 11/01/2022 HDL 38 (L) 06/14/2024 HDL 41 12/23/2023 HDL 40 11/01/2022 LDLCHOLCAL 41 06/14/2024 LDLCHOLCAL 54 12/23/2023 LDLCHOLCAL 68 11/01/2022 Assessment & Plan (06/14/2024 8:16 PM EST): Lab Results Component Value Date HGBA1C 6.2 (A) 06/14/2024 -A1c & lipids well controlled -Eye Exam: established with ophthalmology -Dental: referral to [facility] 09/05/23 -Monofilament: abnormal on 04/16/22 and [...] Exam: established with ophthalmology -Dental: referral to [facility] 09/05/23 -Monofilament: abnormal on 04/16/22 and [...] Exam: established with ophthalmology -Dental: referral to [facility] 09/05/23 -Monofilament: abnormal on 04/16/22 and [...] Exam: established with ophthalmology -Dental: referral to [facility] 09/05/23 -Monofilament: abnormal on 04/16/22 and [...] Exam: established with ophthalmology -Dental: referral to [facility] 09/05/23 -Monofilament: abnormal on 04/16/22 and [...] Plan (07/29/2022 7:55 PM EST): -Following with [facility] Sleep Medicine Resolved Problems Problem Noted Date Diagnosed Date Resolved Date Chest wall contusion, left, initial encounter 06/06/2006/14/2023 Assessment & Plan (06/06/2023 1:49 PM EDT): Recommended diclofenac gel, tylenol and heat to effected area I will prescribe incentive spirometer to prevent atelectasis. Use albuterol q4h Hospital discharge follow-up 05/19/2023 06/14/2023 Assessment & Plan (05/19/2023 8:19 PM EDT): Patient was hospitalized at [facility] from 10-3 to 10-4 due to chronic shortness of breath, found [...] bactrim 03/2023 Shortness of breath 01/05/2023 12/09/19 24 Assessment & Plan (09/07/2023 11:25 AM EST): [...] Encounters Date Type Department Care Team Description 09/23/2024 Telephone [facility] [address], [place] [phone] Bibi Correa MA Chart Prep 09/21/2024 Refill [facility] [address] [place] [address] Lupe Moralez FNP Hypothyroidism, unspecified type 09/17/2024 1:45 PM EST Office Visit [facility] [address] [place] [address] Lupe Moralez FNP Anemia, unspecified type (Primary Dx); Type 2 diabetes mellitus without complication, without long-term current use of insulin ([facility]); Screening for colon cancer; Heart failure with reduced ejection fraction ([facility]); Acute gout involving toe of right foot, unspecified cause 09/17/2024 Travel 09/17/2024 Refill [facility] [address] [place] [phone] Lupe Moralez FNP Sleep difficulties 09/16/2024 2:00 PM EST Office Visit [facility] [address] [place] [phone] Bernice Lamb MD Gout involving toe of right foot, unspecified cause, unspecified chronicity (Primary Dx); Anemia, unspecified type 09/16/2024 Orders Only [facility] [address] [place] [address] Lupe Moralez, [facility] TW[facility]ER 08/27/2024 11:00 AM EST Office Visit [facility] [address] [place] [phone] Bernice Lamb MD Cervical paraspinal muscle spasm (Primary Dx); Spasm of muscle of lower back; Spasm of muscle of lower back 08/24/2024 Telephone [facility] [address] [place] [address] Lupe Moralez FNP Medication Question 08/21/2024 Refill [facility] [address] [place] [address] Lupe Moralez FNP 08/16/2024 Telephone [facility] [address] [place] [address] Lupe Moralez, BATON TWIRLER Med Refill 08/10/2024 Telephone [facility] [address] [place] [phone] Lupe Moralez FNP Medication Question; Med Refill 07/29/2024 Refill [facility] [address] [place] [address] Lupe Moralez FNP 07/17/2024 Refill [facility] [address] [place] [phone] Lupe Moralez FNP from Last 3 Months Immunizations Name Administration [...] not want or need it 09/04 Comments No Sex and Gender Information Value Date Recorded Sex Assigned at Female 06/03/2022 10:40 AM EDT Legal Sex Female 10:40 AM EDT Gender Identity Female 06/03/2022 10:40 AM EDT Sexual Orientation Straight 06/03/2022 10 :40 AM EDT Last Filed Vital Signs Vital Sign Reading Time Taken Comments Blood Pressure 117/59 09/17/2024 1:54 PM EST Pulse 86 09/17/2024 1:54 PM EST Temperature 36.6 ??C (97.9 ??F) 09/17/2024 1:54 PM ES T Respiratory Rate 20 09/17/2024 1:54 PM EST Oxygen Saturation 98% 09/17/2024 1:54 PM EST Inhaled Oxygen Concentration - - Weight 83.9 kg (185 lb) 09/17/2024 1:54 PM EST Height 160 cm (5' 3 ) 09/17/2024 1:54 PM EST Body Mass Index 32.77 09/17/2024 1:54 PM EST Plan of Treatment Upcoming Encounters Date Type Department Care Team (Late st Contact Info) Description 09/24/2024 1:45 PM EST Office Visit [facility] [address], [place] [phone] Lupe Moralez, BATON TWIRLER [address] [place], [place] [phone] 09/29/2024 2:00 PM EST Medication Management [facility] [address], [place] [phone] Health Maintenance Due Date Last Done Comments Dental Oral Exam 1945 Dental Prophylaxis 1945 Diabetes: Foot Exam 1954 Eye Exam 1954 Alcohol/Substance Use Screening 1956 RSV Patients and Patients Aged 60 years or older (1 - 1-dose 75+ series) 2019 Zoster Vaccines (3 of 3) 07/02/2022 05/07/2022, 11/03 Influenza Vaccine (#1) 2025 , 04/16/2022, 2019, Additional history exists Postponed from 04/04/2024 (Patient Refused) Depression Screening 02/08/2025 02/09/2024, 02/09/20 Dental X-Ray: Bitewings 02/18/2025 02/18/2024 Diabetes: Hemoglobin A1C 03/17/2025 025, 06/14/2024, 02/09/2024, Additional history exists DTaP/Tdap/Td Vaccines (1 - Tdap) 06/14/2025 Postponed from 1963 (Other Patient Reasons) Diabetes: Urine Protein Screening 06/14/2025 06/14/2024 Lipid Panel 06/14/2025 06/14/2024, 0508/2023, 11/01/2022, Additional history exists COVID-19 Vaccine ( season) 2025 07/03/2021, 10/24/2020, 10/02/2020 Postponed from 04/04/2024 (Patient Refused) SDOH Screening 09/17/2025 09/17/2024 Tobacco Screening 09/17/2025 09/17/2024 Dental X-Ray: Full Mouth 02/18/2027 02/18/2024 Pneumococcal [...] Procedure Name Priority Date/Time Associated Diagnosis Comments XR FOOT 3+ VIEWS RIGHT Routine 09/23/2024 1:38 PM EST Acute gout involving toe of right foot, unspecified cause POCT GLYCATED HEMOGLOBIN, TOTAL Routine 09/17/2024 2:07 PM EST Type 2 diabetes mellitus without complication, without long-term current use of insulin ([facility]) POCT GLUCOSE Routine 09/17/2024 2:02 PM EST Type 2 diabetes mellitus without complication, without long-term current use of insulin ([facility]) SLIDE REVIEW Routine 09/16/2024 1:56 PM EST URIC ACID Routine 09/16/2024 1:56 PM EST Gout involving toe of right foot, unspecified cause, unspecified chronicity VITAMIN D,25-OH,TOTAL,IA Routine 09/16/2024 1:56 PM EST Anemia, unspecified type FERRITIN Routine 09/16/2024 1:56 PM EST Anemia, unspecified type IRON AND TOTAL IRON BINDING CAPACITY Routine 09/16/2024 1:56 PM EST Anemia, unspecified type RETICULOCYTE COUNT Routine 09/16/2024 1: 56 PM EST Anemia, unspecified type CBC WITH AUTO DIFFERENTIAL Routine 09/16/2024 1:56 PM EST Anemia, unspecified type ALBUMIN, RANDOM URINE W/CREATININE Routine 06/14/2024 12:58 PM EST Type 2 diabetes mellitus without complication, without long-term current use of insulin ([facility]) Healthcare maintenance LIPID PANEL, STANDARD Routine 06/14/2024 12:51 PM EST Type 2 diabetes mellitus without complication, without long-term current use of insulin ([facility]) Healthcare maintenance INTRAORAL - COMPLETE SERIES OF RADIOGRAPHIC IMAGES Routine 02/18/2024 2:00 PM EDT from Last 3 Months or Most Recently Relevant to Health Maintenance Results * XR Foot 3+ Views Right (09/23/2024 1:38 PM EST) Anatomical Region Laterality Modality Lower Extremities, Foot Right [facility] 09/23/2024 1:38 PM EST Narrative 09/23/2024 2:02 PM EST ? [facility] ?[address] ?[place] [address] ?XRay Report ? Signed ? Patient: Scotty Hines,Charleen ?MR#: MM ?? [id number] ? : 1945 ?Acct:[id number] ? Age/Sex: 79 / F ?ADM Date: 02/20/25 ? Loc: HO.[facility] ? Attending Dr: Lupe LR ? Ordering Physician: Lupe Moralez ?? Date of Service: 09/23/24 ?? Procedure(s): XR foot RT min 3V ?? Accession Number(s): [id number] ? cc: Lupe Moralez ? EXAMINATION: ?? XR FOOT, RIGHT ? CLINICAL INFORMATION: ?? pain ? COMPARISON: ?? None available. ? TECHNIQUE: ?? AP, lateral, and oblique views of the right foot. ? FINDINGS: ?? Degenerative changes in the first metatarsophalangeal joint and the ?? interphalangeal joints of the toes. ?? There is a mild lateral deviation of the first metatarsophalangeal ?? joint. ?? No acute cortical disruption or gross malalignment. Osteopenia versus ?? osteoporosis. Small exostosis at the Achilles tendon insertion. ?? Vascular calcifications. No subcutaneous emphysema. ? XR/XR foot RT min 3V ?? IMPRESSION: ?? Osteoarthrosis without acute fracture or dislocation. ?? Hallux valgus deformity, mild, first metatarsophalangeal joint. ? Electronically signed by: ??Crescencio Fletcher MD ??09/23/2024 02:00 PM ?? EST ? Dictated By: ?Crescencio Franz MD ? Signed By: ?<Electronically signed by Crescencio Myrick MD in OV> ? 09/23/24 1400 ? DD/ 1338 ? TD/TT: 09/23/24 1351 ? Time Buyer: ? Procedure Note Afshinstarrlalobryan, Image - 09/23/2024 [place] [id number] XRay Report Signed Patient: Umberto Gallo#: [id number] : 5Acct:[id number] Age/Sex: 79 / FADM Date: 09/23/24 Loc: [facility] Attending Dr: Lupe Moralez [facility] Ordering Physician: Lupe Moralez Date of Service: 09/23/24 Procedure(s): XR foot RT min 3V Accession Number(s): [id number] cc: Lupe Moralez EXAMINATION: XR FOOT, RIGHT CLINICAL INFORMATION: pain COMPARISON: None available. TECHNIQUE: AP, lateral, and oblique views of the right foot. FINDINGS: Degenerative changes in the first metatarsophalangeal joint and the interphalangeal joints of the toes. There is a mild lateral deviation of the first metatarsophalangeal joint. No acute cortical disruption or gross malalignment. Osteopenia versus osteoporosis. Small exostosis at the Achilles tendon insertion. Vascular calcifications. No subcutaneous emphysema. XR/XR foot RT min 3V IMPRESSION: Osteoarthrosis without acute fracture or dislocation. Hallux valgus deformity, mild, first metatarsophalangeal joint. Electronically signed by: Crescencio Fletcher MD 09/23/2024 02:00 PM EST RP Dictated By: Crescencio Franz MD Signed By: <Electronically signed by Crescencio Myrick MDin OV> 09/23/24 1400 DD/ 1338 TD/TT: 09/23/24 1351 Time Buyer: us Lupe MACP IMG XR PROCEDURES Final Result * (ABNORMAL) POCT HGB A1C (09/17/2024 2:07 PM EST) Hemoglobin A1C 6.9(A) 4.0 - 6.0 % QC Media Lot # [id number] Lot# Expiration Date Blood 09/17/2024 2:07 PM EST Lupe Moralez [facility] POINT OF CARE TEST ENTER/EDIT ORDERABLES Final Result * (ABNORMAL) POCT Glucose (09/17/2024 2:02 PM EST) Glucose Blood, POC 301(A) 60 - 200 mg/dL QC Media Lot # [id number] Lot# Expiration Date ,025 Blood Capillary blood specimen / Unknown 09/17/2024 2:02 PM EST Lupe Moralez [facility] POINT OF CARE TEST ENTER/EDIT ORDERABLES Final Result * Slide Review (09/16/2024 1:56 PM EST) Slide Review VERIFIED [facility] 09/16/2024 1:56 PM EST 09/16/2024 4:02 PM EST Lupe Moralez [facility] BLOOD ORDERABLES Final Res ult [facility] [address] [place] [address] [phone] * Vitamin D, 25-Hydroxy, Total, Immunoassay (09/16/2024 1:56 PM EST) Vitamin D 25-OH Total 53.0 >30 ng/mL [facility] Comment:Health Based Referen ce Values*< 20 ng/mL [id number] ng/mL Insufficient> 30 ng/mL Sufficient*Daja LUNDBERG. N Engl J Med. 2007;357:266-280Care must be taken in interpreting Vitamin D results fromdifferent laboratories and methodologies. Published datademonstrated that results from patients undergoinghemodialysis may show a negative bias when tested withvarious automated 25-OH vitamin D assays when compared toLC-MS/MS.When testing samples from patients whose predominant form ofVitamin D is Vitamin D2, such as patients receiving VitaminD2 supplementation, results that are subtherapeutic shouldbe confirmed with another method such as LC-MS/MS. Blood Venous blood specimen / Unknown 09/16/2024 1:56 PM EST 09/16/2024 3:58 PM EST Lupe Moralez [facility] BLOOD ORDERABLES Final Res ult [facility] [address] [place] [address] [phone] * (ABNORMAL) CBC auto differential (09/16/2024 1:56 PM EST) White Blood Count 9.4 4.8 - 10.8 X10*3/uL [facility] Red Blood Count 3.57(L) 4.20 - 5.50 X10*6/uL [facility] Hemoglobin 9.8(L) 12.0 - 16.0 g/dl [facility] Hematocrit 31.8(L) 37.0 - 47.0 % [facility] Mean Corpuscular Volume 89.1 80.0 - 98.0 fL [facility] Mean Corpuscular Hemoglobin 27.5 27.0 - 33.0 pg [facility] Mean Corpuscular HGB Conc 30.8(L) 31.0 - 35.0 g/dl [facility] Red Cell Distribution Width 14.7 11.0 - 16.0 % [facility] Platelet Count 274 160 - 400 X10*3/uL [facility] Mean Platelet Volume 11.0 9.4 - 12.3 fL [facility] Neutrophils Percent Auto 78.7(H) 45 - 73 % [facility] Imm Gran Pct Auto 0.4 0.0 - 0.4 % [facility] Lymphocytes Percent Auto 11.3(L) 20 - 40 % [facility] Monocytes Percent Auto 6.4 2 - 11 % [facility] Eosinophils Percent Auto 2.6 0 - 4 % [facility] Basophils Percent Auto 0.6 0 - 2 % [facility] NRBC Pct Auto 0.0 0.0 - 0.2 /100WBC [facility] Neutrophils Absolute Auto 7.4 2.0 - 8.3 x10*3/uL [facility] Imm Gran Abs Auto 0.04(H) 0.00 - 0.03 X10*3/uL [facility] Lymphocytes Absolute Auto 1.1(L) 1.2 - 4.9 X10*3/uL [facility] Monocytes Absolute Auto 0.6 0.1 - 1.2 X10*3/uL [facility] Eosinophils Absolute Auto 0.2 0.0 - 0.4 X10*3/uL [facility] Basophils Absolute Auto 0.1 0.0 - 0.2 X10*3/uL [facility] NRBC Abs Auto 0.000 0.0 - 0.012 X10*3/uL [facility] Blood Venous blood specimen / Unknown 09/16/2024 1:56 PM EST 09/16/2024 4:02 PM EST us Lupe Moralez [facility] LAB BLOOD ORDERABLES Edited Re sult - Final Performing Organization Address [facility]/ZIP Co de Phone Number [facility] [address] [place] [phone] * (ABNORMAL) Iron And Total Iron Binding Capacity (09/16/2024 1:56 PM EST) Iron 20(L) 30 - 160 mcg/dL [facility] Total Iron Binding Capacity 258 228 - 428 mcg/dL [facility] Percent Iron Saturation 8(L) 15 - 50 % [facility] Unsaturated Iron Binding 238 ug/dL [facility] Blood Venous blood specimen / Unknown 09/16/2024 1:56 PM EST 09/16/2024 4:02 PM EST Lupe Naomy [facility] LAB BLOOD ORDERABLES Final Res ult Performing Organization Address [facility] de Phone Number [facility] [address] [place] [phone] * (ABNORMAL) Reticulocyte Count (09/16/2024 1:56 PM EST) Reticulocytes Absolute 0.080 0.026 - 0.095 X10*6/uL [facility] Immature Retic Fraction 25.5(H) 3.0 - 15.9 % [facility] Retic HGB Equivalent 24.3(L) 30.0 - 35.0 pg [facility] Reticulocyte Percent 2.2(H) 0.5 - 1.8 % [facility] Blood Venous blood specimen / Unknown 09/16/2024 1:56 PM EST 09/16/2024 4:02 PM EST us Lupe Moralez [facility] BLOOD ORDERABLES Final Res ult Performing Organization Address [facility]/ZIP Co de Phone Number [facility] [address] [place] [phone] * (ABNORMAL) Uric acid (09/16/2024 1:56 PM EST) Uric Acid 5.9(H) 2.4 - 5.7 mg/dL [facility] Blood Venous blood specimen / Unknown 09/16/2024 1:56 PM EST 09/16/2024 4:02 PM EST Bernice Lamb MD LAB BLOOD ORDERABLES Final Result Performing Organization Address [facility] Co de Phone Number [facility] [address] [place] [phone] * Ferritin (09/16/2024 1:56 PM EST) Ferritin 53 10 - 250 ng/mL [facility] Blood Venous blood specimen / Unknown 09/16/2024 1:56 PM EST 09/16/2024 3:58 PM EST Lupe Moralez [facility] BLOOD ORDERABLES Final Res ult Performing Organization Address [facility] Co de Phone Number [facility] [address] [place] [phone] * Albumin, Random Urine W/Creatinine (06/14/2024 12:58 PM EST) Creatinine, Urine 54.88 mg/dL [facility] Microalbumin Urine <5.0 mg/L [facility] Microalbum Creatinine Ratio Ur TNP <30 ug/mg cr [facility] Comment:Unable to calculate albumin/creatinine ratio due to lowmicroalbumin or creatinine result. Urine 06/14/2024 12:5 8 PM EST 06/14/2024 2:08 PM EST us Lupe Clarissaraji [facility] URINE ORDERABLES Final Res ult Performing Organization Address [facility] Co de Phone Number [facility] [address] [place] [phone] * (ABNORMAL) Lipid Panel, Standard (06/14/2024 12:51 PM EST) Triglycerides 167(H) <150 mg/dL [facility] Comment:Desirable Triglyceri de: less than 150 mg/dLBorderline High Triglyceride 150-199 mg/dLHigh Triglyceride: 200-499 mg/dLVery High Triglyceride: greater than or equal to 5OO mg/dL Cholesterol 112 <200 mg/dL [facility] Comment:Desirable Cholestero l: less than 200 mg/dLBorderline High Cholesterol: 200-239 mg/dLHigh Cholesterol: greater than 239 mg/dL LDL Cholesterol Calculated 41 <100 mg/dL [facility] Comment:Desirable LDL: less than 100 mg/dLNear Optimal/Above Optimal LDL: 110- 129 mg/dLBorderline High LDL: 130-159 mg/dLHigh LDL: 160-189 mg/dLVery High LDL: greater than or equal to 190 mg/dL HDL Cholesterol 38(L) >40 mg/dL [facility] Comment:Desirable HDL: great er than 40 mg/dL Note: This HDL assay may give artificially low results in patients with liver disease. Blood Venous blood specimen / Unknown 06/14/2024 12:51 PM EST 06/14/2024 2:03 PM EST us Lupe Moralez [facility] BLOOD ORDERABLES Final Res ult Performing Organization Address [facility]/ZIP Co de Phone Number [facility] [address] [place] [phone] from Last 3 Months or Most Recently Relevant to Health Maintenance Insurance [facility] [employer] C[employer] - [facility] [employer] Care Teams Machine Clothing Worker Relationship Specialty Start Date End Date Lupe Moralez FNP [address] [place] [phone] PCP - General Family Medicine 04/16/22 Perry Quintero MD [address] [place] [phone] Cardiology 06/14/24
--- OUTSIDE RECORDS SUMMARY | 2024-09-23 14:17 | XMS_ITS | Encounter Summary ---
Author Organization [employer] [facility] Address [address] [place] [address] Care Team Providers Care Layup Worker Name Role Phone Lupe Moralez Primary Care Provider [phone] Perry Quintero MD Unavailable [phone] Reason for Visit * Reason Onset Date Comments ER Follow-up 01/27/2023 Encounter Details Date Type Department Care Team ([facility] st Contact Info) Description 01/27/2023 Telephone [facility] [address] [place] [address] Lupe Moralez FNP [address] [place], [place] [phone] ER Follow-up Social History Tobacco Use Types [...] - 01/28/2023 9:55 AM EDT T/C to [phone] for below message, pt. Is doing good. Pt. Schedule for ED follow up on 02/05/2023. Pt. Also advised to go to nearest ED in case of any new, return or worsening symptoms including CP, SOB or breathing problem. [facility] hours are reviewed. ED summery printed and scanned into pt's chart. * Telephone Encounter - Eleni Rahman - 01/27/2023 1:44 PM EDT Patient calling to report ED visit on 01/23/23 at [facility]. Seen for breathing trouble and asthma. Patient advised will forward to team nurse for follow up. Patient and daughter speaks luxembourger. documented in this encounter Plan of Treatment Upcoming Encounters Date Type Department Care Team (Late st Contact Info) Description 09/24/2024 1:45 PM EST Office Visit [facility] [address] [place] [address] Lupe Moralez FNP [address] [place] [address] 09/29/2024 2:00 PM EST Medication Management [facility] [address] [place] [address] documented as of this encounter Visit Diagnoses Not on filedocumented in this encounter Additional Health Concerns Assessment Noted Time PHQ-9 Depression Total Score: 5 01/03/20 23 2:27 PM EDT documented as of this encounter Care Teams Layup Worker Relationship Specialty Start Date End Date Lupe Moralez FNP [address] [place] [address] PCP - General Family Medicine 04/16/22 Perry Quintero MD [address] [place] [address] Cardiology 06/14/24 documented as of this encounter
--- OUTSIDE RECORDS SUMMARY | 2024-09-23 14:17 | XMS_ITS | Encounter Summary ---
Author Organization [employer] Address [address] [place] [address] [address] [place] [address] Care Team Providers Care Name Role Phone Lupe Moralez BE Primary Care Provider [phone] Perry Quintero MD Unavailable [phone] Encounter Details Date Type Department Care Team ([facility] st Contact Info) Description 07/24/2022 Orders Only [facility] [address] [place] [address] Aislinn Valle LPN Social History Tobacco Use [...] Susceptible to bactrim, [place] [facility] [place] d/t HUSEYIN. documented in this encounter Plan of Treatment Upcoming Encounters Date Type Department Care Team (Late st Contact Info) Description 09/24/2024 1:45 PM EST Office Visit [facility] [address] [place], [place] [phone] Lupe Moralez, TILE FITTER [address] [place] [address] 09/29/2024 2:00 PM EST Medication Management [facility] [address] [place] [address] documented as of this encounter Procedures Procedure [...] EDT 06/03/2023 6:38 PM EDT Comment:UACC Narrative [facility] - 06/05/2023 12:49 PM EDT Urine Culture Report Result Urine Culture < 10,000 cfu/ml Specimen Source: Urine clean catch Yg Reyes MD LAB MICROBIOLOGY - GENERAL ORDER CASIMIRO Final Result Performing Organization Address City/[facility]/ZIP Co de Phone Number [facility] [address] [place] [address] [phone] * Lactic Acid (03/15/2023 6:29 PM EDT) Lactic Acid 1.2 0.5 - 2.0 mmol/L [facility] 03/15/2023 6:29 PM EDT 03/15/2023 6:32 PM EDT [facility] External Provider LAB BLO OD ORDERABLES Final Result Performing Organization Address City/[facility]/ZIP Co de Phone Number [facility] [address] [place] [phone] * Lipase (03/15/2023 3:34 PM EDT) Lipase 22 8 - 78 U/L [facility] 03/15/2023 3:34 PM EDT 03/15/2023 3:41 PM EDT us Generic External Data Provider LAB BLOOD ORDERAB LES Final Result [facility] [address] [place] [phone] * (ABNORMAL) Comprehensive Metabolic Panel (03/15/2023 3:34 PM EDT) Sodium 137 135 - 145 mmol/L [facility] Potassium 4.7 3.3 - 5.1 mmol/L [facility] Chloride 102 96 - 108 mmol/L [facility] Carbon Dioxide 23 22 - 29 mmol/L [facility] Anion Gap 17 12 - 20 [facility] Urea Nitrogen (BUN) 32(H) 9 - 16 mg/dL [facility] Creatinine, Serum 1.83(H) 0.5 - 1.4 mg/dL [facility] Creatinine Clr Calc Pharmacy 27.9 [facility] Comment:Provided height and weight: 162.56 cm,92.533 kg.eGFR (calculated from the MDRD study equation) and eCrCl(calculated from the Cockcroft-Gault equation) are based ondifferent parameters and may not yield comparable results.If eCrCl result is absurd, please check patient'sheight/weight. Estimated Glomerular Filt Rate 27 [facility] Comment:NOTE: For -Am erican individuals, multiply the result by 1.210.Chronic Kidney Disease: Estimated GFR < 60 mL/min/1.24r3Nizezs Kidney Disease: Estimated GFR < 15 mL/min/1.73m2 Glucose 254(H) 60 - 115 mg/dL [facility] Calcium 9.8 8.4 - 10.2 mg/dL [facility] Bilirubin, Total 0.4 0.0 - 1.0 mg/dL [facility] Aspartate Amino Transferase 17 5 - 31 U/L [facility] Alanine Aminotransferase 12 0 - 31 U/L [facility] Total Protein 7.5 6.5 - 8.0 g/dL [facility] Albumin Level 4.3 3.5 - 5.0 g/dL [facility] Alkaline Phosphatase 72 39 - 117 U/L [facility] 03/15/2023 3:34 PM EDT 03/15/2023 3:41 PM EDT [facility] External Provider LAB BLO OD ORDERABLES Final Result Performing Organization Address [facility] Co de Phone Number [facility] [address] [place] [address] [phone] * (ABNORMAL) Lactic Acid (03/15/2023 3:34 PM EDT) Lactic Acid 2.6(HH) 0.5 - 2.0 mmol/L [facility] Comment:Critical value for t est(s):LACTA Results called to anny back by:TAE Person calling:EDWARD Date:03/15/23Time:1610 03/15/2023 3:34 PM EDT 03/15/2023 3:41 PM EDT [facility] External Provider LAB BLO OD ORDERABLES Final Result Performing Organization Address [facility] Co de Phone Number [facility] [address] [place] [address] [phone] * (ABNORMAL) Urinalysis, Complete, with Reflex to Culture (03/15/2023 3:34 PM EDT) Color Urine Yellow [facility] Appearance Urine Clear [facility] PH 7.0 5.0 - 9.0 [facility] Glucose Urine UA >=1000(A) Negative mg/dL [facility] Urine Blood Large (3+)(A) Negative [facility] Specific [place] - Urine 1.020 1.005 - 1.025 [facility] Urine Protein Negative Neg-Trace mg/dL [facility] Urine Ketones Negative Negative mg/dL [facility] Nitrite Urine Negative Negative [facility] Leukocyte Esterase Urine Negative Negative [facility] RBC Urine >20(A) 0 - 2 /HPF [facility] Urine WBC 0-5 0 - 5 /HPF [facility] Urine Squamous Epithelial Cell 0-2 0 - 2 /HPF [facility] Urine Bacteria None Seen None Seen [facility] Hyaline Casts, Urine 0-2 0 - 2 /LPF [facility] 03/15/2023 3:34 PM EDT 03/15/2023 3:41 PM EDT Narrative [facility] - 03/15/2023 4:19 PM EDT [id number], Clean Catch us [facility] External Provider LAB URI NE ORDERABLES Final Result [facility] [address] [place] [phone] * (ABNORMAL) CBC auto differential (03/15/2023 3:34 PM EDT) White Blood Count 7.2 4.8 - 10.8 X10*3/uL [facility] Red Blood Count 3.64(L) 4.20 - 5.50 X10*6/uL [facility] Hemoglobin 11.7(L) 12.0 - 16.0 g/dl [facility] Hematocrit 35.1(L) 37.0 - 47.0 % [facility] Mean Corpuscular Volume 96.4 80.0 - 98.0 fL [facility] Mean Corpuscular Hemoglobin 32.1 27.0 - 33.0 pg [facility] Mean Corpuscular HGB Conc 33.3 31.0 - 35.0 g/dl [facility] Red Cell Distribution Width 11.9 11.0 - 16.0 % [facility] Platelet Count 246 160 - 400 X10*3/uL [facility] Mean Platelet Volume 10.3 9.4 - 12.3 fL [facility] Neutrophils Percent Auto 66.7 45 - 73 % [facility] Imm Gran Pct Auto 0.4 0.0 - 0.4 % [facility] Lymphocytes Percent Auto 22.0 20 - 40 % [facility] Monocytes Percent Auto 6.4 2 - 11 % [facility] Eosinophils Percent Auto 4.1(H) 0 - 4 % [facility] Basophils Percent Auto 0.4 0 - 2 % [facility] NRBC Pct Auto 0.0 0.0 - 0.2 /100WBC [facility] Neutrophils Absolute Auto 4.8 2.0 - 8.3 x10*3/uL [facility] Imm Gran Abs Auto 0.03 0.00 - 0.03 X10*3/uL [facility] Lymphocytes Absolute Auto 1.6 1.2 - 4.9 X10*3/uL [facility] Monocytes Absolute Auto 0.5 0.1 - 1.2 X10*3/uL [facility] Eosinophils Absolute Auto 0.3 0.0 - 0.4 X10*3/uL [facility] Basophils Absolute Auto 0.0 0.0 - 0.2 X10*3/uL [facility] NRBC Abs Auto 0.000 0.0 - 0.012 X10*3/uL [facility] 03/15/2023 3:34 PM EDT 03/15/2023 3:41 PM EDT [facility] External Provider LAB BLO OD ORDERABLES Final Result [facility] [address] [place] [phone] * Culture, Urine, Routine (03/11/2023 4:02 PM EDT) Urine specimen obtained by clean catch procedure / Unknown 03/11/2023 4:02 PM EDT 03/11/2023 6:59 PM EDT Comment:UACC Narrative [facility] - 03/13/2023 8:43 AM EDT Escherichia coli Quant 50,000 to 100,000 cfu/mL Escherichia coli: Ampicillin 8(S) Escherichia coli: Ceftriaxone <=0.25(S) Escherichia coli: Gentamicin <=1(S) Escherichia coli: Levofloxacin >=8(R) Escherichia coli: Nitrofurantoin <=16(S) Escherichia coli: Trimethoprim/Sulfamethoxazole <=20(S) Specimen Source: Urine clean catch [facility] LAB MICROBIOLOGY - GENERAL ORDER CASIMIRO Final Result Performing Organization Address [facility]/ZIP Co de Phone Number [facility] [address] [place] [phone] * Calcium (02/10/2023 11:24 AM EDT) Calcium 9.8 8.4 - 10.2 mg/dL [facility] 02/10/2023 11:2 4 AM EDT 02/10/2023 11:24 AM EDT [facility] External Provider LAB BLO OD ORDERABLES Final Result Performing Organization Address [facility] Co de Phone Number [facility] [address] [place] [phone] * Creatinine, Serum (02/10/2023 11:24 AM EDT) Creatinine, Serum 1.13 0.5 - 1.4 mg/dL [facility] Estimated Glomerular Filt Rate 47 [facility] Comment:NOTE: For -Am erican individuals, multiply the result by 1.210.Chronic Kidney Disease: Estimated GFR < 60 mL/min/1.91a0Xylzmp Kidney Disease: Estimated GFR < 15 mL/min/1.73m2 02/10/2023 11:2 4 AM EDT 02/10/2023 11:24 AM EDT [facility] External Provider LAB BLO OD ORDERABLES Final Result Performing Organization Address City/State/[facility] de Phone Number [facility] [address] [place] [phone] * (ABNORMAL) BUN (Blood Urea Nitrogen) (02/10/2023 11:24 AM EDT) Urea Nitrogen (BUN) 24(H) 9 - 16 mg/dL [facility] 02/10/2023 11:2 4 AM EDT 02/10/2023 11:24 AM EDT [facility] External Provider LAB BLO OD ORDERABLES Final Result Performing Organization Address [facility] de Phone Number [facility] [address] [place] [phone] * Electrolyte Panel (02/10/2023 11:24 AM EDT) [facility] Sodium 141 135 - 145 mmol/L [facility] Potassium 4.0 3.3 - 5.1 mmol/L [facility] Chloride 105 96 - 108 mmol/L [facility] Carbon Dioxide 25 22 - 29 mmol/L [facility] Anion Gap 15 12 - 20 [facility] 02/10/2023 11:2 4 AM EDT 02/10/2023 11:24 AM EDT [facility] External Provider LAB BLO OD ORDERABLES Final Result Performing Organization Address [facility] de Phone Number [facility] [address] [place] [phone] [phone] * (ABNORMAL) Urinalysis, Complete, with Reflex to Culture (02/02/2023 3:16 AM EDT) Color Urine Yellow [facility] Appearance Urine Clear [facility] PH 5.5 5.0 - 9.0 [facility] Glucose Urine UA >=1000(A) Negative mg/dL [facility] Urine Blood Negative Negative [facility] Specific [place] - Urine 1.025 1.005 - 1.025 [facility] Urine Protein Negative Neg-Trace mg/dL [facility] Urine Ketones Negative Negative mg/dL [facility] Nitrite Urine Negative Negative [facility] Leukocyte Esterase Urine Negative Negative [facility] RBC Urine 3-5(A) 0 - 2 /HPF [facility] Urine WBC 0-5 0 - 5 /HPF [facility] Urine Squamous Epithelial Cell 0-2 0 - 2 /HPF [facility] Urine Bacteria None Seen None Seen [facility] Hyaline Casts, Urine 0-2 0 - 2 /LPF [facility] 02/02/2023 3:16 AM EDT 02/02/2023 3:18 AM EDT Narrative [facility] - 02/02/2023 3:28 AM EDT [id number], Clean Catch [facility] External Provider LAB URI NE ORDERABLES Final Result Performing Organization Address [facility] Co de Phone Number [facility] [address] [place] [phone] * Sed Rate by Liliana Burdick (02/02/2023 2:37 AM EDT) Erythrocyte Sedimentation Rate 7 0 - 20 MM/HR [facility] Comment:Patients with polycy themia and many hemoglobin abnormalitiesmay have depressed sed rates whereas patients with anemiamay have elevated sed rates. 02/02/2023 2:37 AM EDT 02/02/2023 2:43 AM EDT [facility] External Provider LAB BLO OD ORDERABLES Final Result Performing Organization Address [facility]/ZIP Co de Phone Number [facility] [address] [place] [phone] * TSH W/Reflex to FT4 (02/02/2023 2:37 AM EDT) [facility] TSH reflex Free T4 2.61 0.32 - 4.0 uIU/mL [facility] 02/02/2023 2:37 AM EDT 02/02/2023 2:43 AM EDT [facility] External Provider LAB BLO OD ORDERABLES Final Result Performing Organization Address [facility] Co de Phone Number [facility] [address] [place] [phone] * B Type Natriuretic Peptide (BNP) (02/02/2023 2:37 AM EDT) [facility] B Type Natriuretic Peptide 72 <100 pg/mL [facility] Comment:For those patients w ho are being treated with Natrecor(nesiritide, recombinant BNP), BNP testing should beperformed at least two hours post treatment in order toensure that only endogenous levels of BNP are detected. 02/02/2023 2:37 AM EDT 02/02/2023 2:43 AM EDT [facility] External Provider LAB BLO OD ORDERABLES Final Result Performing Organization Address [facility] de Phone Number [facility] [address] [place] [phone] * High Sensitivity Troponin I (02/02/2023 2:37 AM EDT) [facility] TROPONIN I HIGH SENSITIVITY 3.7 <3.5 - 17.0 ng/L [facility] Comment:The Tony high sens itivity Troponin-I results should beused in conjunction with other diagnostic information suchas ECG, clinical observations and information, and patientsymptoms to aid in the diagnosis of SC. 02/02/2023 2:37 AM EDT 02/02/2023 2:43 AM EDT [facility] External Provider LAB BLO OD ORDERABLES Final Result Performing Organization Address [facility] Co de Phone Number [facility] [address] [place] [phone] * (ABNORMAL) Basic Metabolic Panel (02/02/2023 2:37 AM EDT) Sodium 139 135 - 145 mmol/L [facility] Comment:Lipemic Specimen Potassium 4.3 3.3 - 5.1 mmol/L [facility] Comment:Lipemic Specimen Chloride 100 96 - 108 mmol/L [facility] Comment:Lipemic Specimen Carbon Dioxide 25 22 - 29 mmol/L [facility] Anion Gap 18 12 - 20 [facility] Urea Nitrogen (BUN) 38(H) 9 - 16 mg/dL [facility] Comment:Lipemic Specimen Creatinine, Serum 1.58(H) 0.5 - 1.4 mg/dL [facility] Comment:Lipemic Specimen Creatinine Clr Calc Pharmacy 32.4 [facility] Comment:Provided height and weight: 162.56 cm,92.986 kg.eGFR (calculated from the MDRD study equation) and eCrCl(calculated from the Cockcroft-Gault equation) are based ondifferent parameters and may not yield comparable results.If eCrCl result is absurd, please check patient'sheight/weight. Estimated Glomerular Filt Rate 32 [facility] Comment:NOTE: For -Am erican individuals, multiply the result by 1.210.Chronic Kidney Disease: Estimated GFR < 60 mL/min/1.60y4Dnlsuh Kidney Disease: Estimated GFR < 15 mL/min/1.73m2 Glucose 230(H) 60 - 115 mg/dL [facility] Comment:Lipemic Specimen Calcium 10.5(H) 8.4 - 10.2 mg/dL [facility] Comment:Lipemic Specimen 02/02/2023 2:37 AM EDT 02/02/2023 2:43 AM EDT [facility] External Provider LAB BLO OD ORDERABLES Final Result Performing Organization Address City/[facility] Co de Phone Number [facility] [address] [place] [address] [phone] * (ABNORMAL) CBC auto differential (02/02/2023 2:37 AM EDT) White Blood Count 9.2 4.8 - 10.8 X10*3/uL [facility] Red Blood Count 3.86(L) 4.20 - 5.50 X10*6/uL [facility] Hemoglobin 12.9 12.0 - 16.0 g/dl [facility] Hematocrit 37.5 37.0 - 47.0 % [facility] Mean Corpuscular Volume 97.2 80.0 - 98.0 fL [facility] Mean Corpuscular Hemoglobin 33.4(H) 27.0 - 33.0 pg [facility] Mean Corpuscular HGB Conc 34.4 31.0 - 35.0 g/dl [facility] Red Cell Distribution Width 12.6 11.0 - 16.0 % [facility] Platelet Count 281 160 - 400 X10*3/uL [facility] Mean Platelet Volume 10.2 9.4 - 12.3 fL [facility] Neutrophils Percent Auto 58.2 45 - 73 % [facility] Imm Gran Pct Auto 1.0(H) 0.0 - 0.4 % [facility] Lymphocytes Percent Auto 32.1 20 - 40 % [facility] Monocytes Percent Auto 6.3 2 - 11 % [facility] Eosinophils Percent Auto 2.1 0 - 4 % [facility] Basophils Percent Auto 0.3 0 - 2 % [facility] NRBC Pct Auto 0.0 0.0 - 0.2 /100WBC [facility] Neutrophils Absolute Auto 5.4 2.0 - 8.3 x10*3/uL [facility] Imm Gran Abs Auto 0.09(H) 0.00 - 0.03 X10*3/uL [facility] Lymphocytes Absolute Auto 3.0 1.2 - 4.9 X10*3/uL [facility] Monocytes Absolute Auto 0.6 0.1 - 1.2 X10*3/uL [facility] Eosinophils Absolute Auto 0.2 0.0 - 0.4 X10*3/uL [facility] Basophils Absolute Auto 0.0 0.0 - 0.2 X10*3/uL [facility] NRBC Abs Auto 0.000 0.0 - 0.012 X10*3/uL [facility] 02/02/2023 2:37 AM EDT 02/02/2023 2:43 AM EDT [facility] External Provider LAB BLO OD ORDERABLES Final Result Performing Organization Address [facility] Co de Phone Number [facility] [address] [place] [phone] * (ABNORMAL) B Type Natriuretic Peptide (BNP) (01/23/2023 5:48 PM EDT) [facility] B Type Natriuretic Peptide 119(H) <100 pg/mL [facility] Comment:For those patients w ho are being treated with Natrecor(nesiritide, recombinant BNP), BNP testing should beperformed at least two hours post treatment in order toensure that only endogenous levels of BNP are detected. 01/23/2023 5:48 PM EDT 01/23/2023 9:15 PM EDT [facility] External Provider LAB BLO OD ORDERABLES Final Result Performing Organization Address [facility] de Phone Number [facility] [address] [place] [address] [phone] * (ABNORMAL) Basic Metabolic Panel (01/23/2023 5:48 PM EDT) [facility] Sodium 138 135 - 145 mmol/L [facility] Potassium 4.2 3.3 - 5.1 mmol/L [facility] Chloride 105 96 - 108 mmol/L [facility] Carbon Dioxide 23 22 - 29 mmol/L [facility] Anion Gap 14 12 - 20 [facility] Urea Nitrogen (BUN) 22(H) 9 - 16 mg/dL [facility] Creatinine, Serum 0.99 0.5 - 1.4 mg/dL [facility] Creatinine Clr Calc Pharmacy 50.3 [facility] Comment:Provided height and weight: 160.02 cm,91.626 kg.eGFR (calculated from the MDRD study equation) and eCrCl(calculated from the Cockcroft-Gault equation) are based ondifferent parameters and may not yield comparable results.If eCrCl result is absurd, please check patient'sheight/weight. Estimated Glomerular Filt Rate 54 [facility] Comment:NOTE: For -Am erican individuals, multiply the result by 1.210.Chronic Kidney Disease: Estimated GFR < 60 mL/min/1.12u6Qmjpoq Kidney Disease: Estimated GFR < 15 mL/min/1.73m2 Glucose 119(H) 60 - 115 mg/dL [facility] Calcium 10.2 8.4 - 10.2 mg/dL [facility] 01/23/2023 5:48 PM EDT 01/23/2023 6:01 PM EDT us [facility] External Provider LAB BLO OD ORDERABLES Final Result [facility] [address] [place] [phone] * Hepatic Function Panel (01/23/2023 5:48 PM EDT) Bilirubin, Total 0.6 0.0 - 1.0 mg/dL [facility] Bilirubin, Direct 0.2 0.0 - 0.5 mg/dL [facility] Aspartate Amino Transferase 12 5 - 31 U/L [facility] Alanine Aminotransferase 8 0 - 31 U/L [facility] Total Protein 7.2 6.5 - 8.0 g/dL [facility] Albumin Level 4.1 3.5 - 5.0 g/dL [facility] Alkaline Phosphatase 72 39 - 117 U/L [facility] 01/23/2023 5:48 PM EDT 01/23/2023 6:01 PM EDT [facility] External Provider LAB BLO OD ORDERABLES Final Result Performing Organization Address [facility] Co de Phone Number [facility] [address] [place] [phone] * High Sensitivity Troponin I (01/23/2023 5:48 PM EDT) TROPONIN I HIGH SENSITIVITY <2.7 <3.5 - 17.0 ng/L [facility] Comment:The Tony high sens itivity Troponin-I results should beused in conjunction with other diagnostic information suchas ECG, clinical observations and information, and patientsymptoms to aid in the diagnosis of SC. 01/23/2023 5:48 PM EDT 01/23/2023 6:01 PM EDT [facility] External Provider LAB BLO OD ORDERABLES Final Result Performing Organization Address [facility] Co de Phone Number [facility] [address] [place] [address] [phone] * (ABNORMAL) APTT (01/23/2023 5:48 PM EDT) Partial Thromboplastin Time 24.9(L) 26.0 - 36.4 SEC [facility] 01/23/2023 5:48 PM EDT 01/23/2023 6:01 PM EDT [facility] External Provider LAB BLO OD ORDERABLES Final Result Performing Organization Address [facility] Co de Phone Number [facility] [address] [place] [phone] * Prothrombin Time-INR (01/23/2023 5:48 PM EDT) Prothrombin Time 10.0 10.0 - 13.1 SEC [facility] INTERNATIONAL NORM RATIO 0.9 0.9 - 1.1 [facility] Comment:INTERNATIONAL NORMAL IZED RATIO (INR) [...] 5:48 PM EDT 01/23/2023 6:01 PM EDT [facility] External Provider LAB BLO OD ORDERABLES Final Result [facility] [address] [place] [address] [phone] * (ABNORMAL) CBC auto differential (01/23/2023 5:48 PM EDT) Pathologist [facility] White Blood Count 7.5 4.8 - 10.8 X10*3/uL [facility] Red Blood Count 3.42(L) 4.20 - 5.50 X10*6/uL [facility] Hemoglobin 11.2(L) 12.0 - 16.0 g/dl [facility] Hematocrit 33.6(L) 37.0 - 47.0 % [facility] Mean Corpuscular Volume 98.2(H) 80.0 - 98.0 fL [facility] Mean Corpuscular Hemoglobin 32.7 27.0 - 33.0 pg [facility] Mean Corpuscular HGB Conc 33.3 31.0 - 35.0 g/dl [facility] Red Cell Distribution Width 12.5 11.0 - 16.0 % [facility] Platelet Count 238 160 - 400 X10*3/uL [facility] Mean Platelet Volume 10.3 9.4 - 12.3 fL [facility] Neutrophils Percent Auto 56.7 45 - 73 % [facility] Imm Gran Pct Auto 0.4 0.0 - 0.4 % [facility] Lymphocytes Percent Auto 26.0 20 - 40 % [facility] Monocytes Percent Auto 9.9 2 - 11 % [facility] Eosinophils Percent Auto 6.3(H) 0 - 4 % [facility] Basophils Percent Auto 0.7 0 - 2 % [facility] NRBC Pct Auto 0.0 0.0 - 0.2 /100WBC [facility] Neutrophils Absolute Auto 4.2 2.0 - 8.3 x10*3/uL [facility] Imm Gran Abs Auto 0.03 0.00 - 0.03 X10*3/uL [facility] Lymphocytes Absolute Auto 1.9 1.2 - 4.9 X10*3/uL [facility] Monocytes Absolute Auto 0.7 0.1 - 1.2 X10*3/uL [facility] Eosinophils Absolute Auto 0.5(H) 0.0 - 0.4 X10*3/uL [facility] Basophils Absolute Auto 0.1 0.0 - 0.2 X10*3/uL [facility] NRBC Abs Auto 0.000 0.0 - 0.012 X10*3/uL [facility] 01/23/2023 5:48 PM EDT 01/23/2023 6:01 PM EDT us [facility] External Provider LAB BLO OD ORDERABLES Final Result [facility] [address] [place] [address] [phone] * B Type Natriuretic Peptide (BNP) (12/18/2022 10:20 AM EDT) B Type Natriuretic Peptide 95 <100 pg/mL [facility] Comment:For those patients w ho are being treated with Natrecor(nesiritide, recombinant BNP), BNP testing should beperformed at least two hours post treatment in order toensure that only endogenous levels of BNP are detected. 12/18/2022 10:2 0 AM EDT 12/18/2022 10:20 AM EDT [facility] External Provider LAB BLO OD ORDERABLES Final Result Performing Organization Address [facility] de Phone Number [facility] [address] [place] [address] [phone] * (ABNORMAL) APTT (12/18/2022 10:20 AM EDT) [facility] Partial Thromboplastin Time 24.7(L) 26.0 - 36.4 SEC [facility] 12/18/2022 10:2 0 AM EDT 12/18/2022 10:20 AM EDT [facility] External Provider LAB BLO OD ORDERABLES Final Result Performing Organization Address [facility] de Phone Number [facility] [address] [place] [address] [phone] * (ABNORMAL) CBC auto differential (12/18/2022 10:20 AM EDT) [facility] White Blood Count 9.0 4.8 - 10.8 X10*3/uL [facility] Red Blood Count 3.63(L) 4.20 - 5.50 X10*6/uL [facility] Hemoglobin 11.8(L) 12.0 - 16.0 g/dl [facility] Hematocrit 35.4(L) 37.0 - 47.0 % [facility] Mean Corpuscular Volume 97.5 80.0 - 98.0 fL [facility] Mean Corpuscular Hemoglobin 32.5 27.0 - 33.0 pg [facility] Mean Corpuscular HGB Conc 33.3 31.0 - 35.0 g/dl [facility] Red Cell Distribution Width 12.4 11.0 - 16.0 % [facility] Platelet Count 221 160 - 400 X10*3/uL [facility] Mean Platelet Volume 10.6 9.4 - 12.3 fL [facility] Neutrophils Percent Auto 73.6(H) 45 - 73 % [facility] Imm Gran Pct Auto 0.2 0.0 - 0.4 % [facility] Lymphocytes Percent Auto 17.1(L) 20 - 40 % [facility] Monocytes Percent Auto 6.4 2 - 11 % [facility] Eosinophils Percent Auto 2.1 0 - 4 % [facility] Basophils Percent Auto 0.6 0 - 2 % [facility] NRBC Pct Auto 0.0 0.0 - 0.2 /100WBC [facility] Neutrophils Absolute Auto 6.7 2.0 - 8.3 x10*3/uL [facility] Imm Gran Abs Auto 0.02 0.00 - 0.03 X10*3/uL [facility] Lymphocytes Absolute Auto 1.6 1.2 - 4.9 X10*3/uL [facility] Monocytes Absolute Auto 0.6 0.1 - 1.2 X10*3/uL [facility] Eosinophils Absolute Auto 0.2 0.0 - 0.4 X10*3/uL [facility] Basophils Absolute Auto 0.1 0.0 - 0.2 X10*3/uL [facility] NRBC Abs Auto 0.000 0.0 - 0.012 X10*3/uL [facility] 12/18/2022 10:2 0 AM EDT 12/18/2022 10:20 AM EDT us [facility] External Provider LAB BLO OD ORDERABLES Final Result [facility] [address] [place] [phone] * B Type Natriuretic Peptide (BNP) (11/01/2022 9:29 AM EDT) B Type Natriuretic Peptide 97 <100 pg/mL [facility] Comment:For those patients w ho are being treated with Natrecor(nesiritide, recombinant BNP), BNP testing should beperformed at least two hours post treatment in order toensure that only endogenous levels of BNP are detected. 11/01/2022 9:29 AM EDT 11/01/2022 9:29 AM EDT [facility] External Provider LAB BLO OD ORDERABLES Final Result Performing Organization Address [facility] Co de Phone Number [facility] [address] [place] [phone] * Lipid Panel, Standard (11/01/2022 9:29 AM EDT) Triglycerides 101 mg/dL [facility] Comment:Desirable Triglyceri de: less than 150 mg/dLBorderline High Triglyceride 150-199 mg/dLHigh Triglyceride: 200-499 mg/dLVery High Triglyceride: greater than or equal to 5OO mg/dL Cholesterol 128 mg/dL [facility] Comment:Desirable Cholestero l: less than 200 mg/dLBorderline High Cholesterol: 200-239 mg/dLHigh Cholesterol: greater than 239 mg/dL LDL Cholesterol Calculated 68 mg/dl [facility] Comment:Desirable LDL: less than 100 mg/dLNear Optimal/Above Optimal LDL: 110- 129 mg/dLBorderline High LDL: 130-159 mg/dLHigh LDL: 160-189 mg/dLVery High LDL: greater than or equal to 190 mg/dL HDL Cholesterol 40 mg/dL [facility] Comment:Desirable HDL: great er than 40 mg/dL Note: This HDL assay may give artificially low results in patients with liver disease. 11/01/2022 9:29 AM EDT 11/01/2022 9:29 AM EDT [facility] External Provider LAB BLO OD ORDERABLES Final Result Performing Organization Address [facility] Co de Phone Number [facility] [address] [place] [address] [phone] * ALT (11/01/2022 9:29 AM EDT) Alanine Aminotransferase 9 0 - 31 U/L [facility] 11/01/2022 9:29 AM EDT 11/01/2022 9:29 AM EDT [facility] External Provider LAB BLO OD ORDERABLES Final Result Performing Organization Address [facility] Co de Phone Number [facility] [address] [place] [address] [phone] * AST (11/01/2022 9:29 AM EDT) Aspartate Amino Transferase 12 5 - 31 U/L [facility] 11/01/2022 9:29 AM EDT 11/01/2022 9:29 AM EDT [facility] External Provider LAB BLO OD ORDERABLES Final Result Performing Organization Address [facility] de Phone Number [facility] [address] [place] [address] [phone] * (ABNORMAL) Basic Metabolic Panel (11/01/2022 9:29 AM EDT) Sodium 142 135 - 145 mmol/L [facility] Potassium 4.5 3.3 - 5.1 mmol/L [facility] Chloride 105 96 - 108 mmol/L [facility] Carbon Dioxide 30(H) 22 - 29 mmol/L [facility] Anion Gap 12 12 - 20 [facility] Urea Nitrogen (BUN) 30(H) 9 - 16 mg/dL [facility] Creatinine, Serum 1.18 0.5 - 1.4 mg/dL [facility] Estimated Glomerular Filt Rate 44 [facility] Comment:NOTE: For -Am erican individuals, multiply the result by 1.210.Chronic Kidney Disease: Estimated GFR < 60 mL/min/[id number] Kidney Disease: Estimated GFR < 15 mL/min/1.73m2 Glucose 105 60 - 115 mg/dL [facility] Calcium 9.7 8.4 - 10.2 mg/dL [facility] 11/01/2022 9:29 AM EDT 11/01/2022 9:29 AM EDT us [facility] External Provider LAB BLO OD ORDERABLES Final Result [facility] [address] [place] [address] [phone] documented in this encounter Visit Diagnoses Not on filedocumented in this encounter Care Teams Relationship Specialty Start Date End Date Lupe Moralez FNP [address] [place] [address] PCP - General Family Medicine 04/16/22 Perry Quintero MD [address] [place] [phone] Cardiology 06/14/24 documented as of this encounter
--- OUTSIDE RECORDS SUMMARY | 2024-09-23 14:18 | XMS_ITS | Encounter Summary ---
Author Organization [employer] Address [address] [facility] [address] [place] [address] Care Team Providers Care Manager Creative Services Name Role Phone Lupe Moralez Primary Care Provider [phone] Perry Quintero MD Unavailable [phone] Encounter Details Date Type Department Care Team ([facility] st Contact Info) Description 09/16/2024 Orders Only [facility] CHC MED & PEDS [address] [place] [address] Lupe Moralez FNP [address] [place] [address] Social History Tobacco Use Types Packs/Day Years [...] Description 09/24/2024 1:45 PM EST Office Visit [facility] CHC MED & PEDS [address] [place] [address] Lupe Moralez FNP [address] [place] [address] 09/29/2024 2:00 PM EST Medication Management [facility] MEDICINE [address] [place] [address] documented as of this encounter Procedures Procedure Name Priority Date/Time Associated Diagnosis Comments SLIDE REVIEW Routine 09/16/2024 1:56 PM EST documented in this encounter Results * Slide Review (09/16/2024 1:56 PM EST) Slide Review VERIFIED [facility] 09/16/2024 1:56 PM EST 09/16/2024 4:02 PM EST us Lupe LR LAB BLOOD ORDERABLES Final Res ult [facility] [address] [place] [address] [phone] documented in this encounter Visit Diagnoses Not on filedocumented in this encounter Additional Health Concerns Assessment Noted Time PHQ-9 Depression Total Score: 4 02/09/20 24 10:42 AM EDT documented as of this encounter Care Teams Manager Creative Services Relationship Specialty Start Date End Date Lupe Moralez FNP [address] [place] [address] PCP - General Family Medicine 04/16/22 Perry Quintero MD [address] [place] [address] Cardiology 06/14/24 documented as of this encounter
--- OUTSIDE RECORDS SUMMARY | 2024-09-23 14:18 | XMS_ITS | Encounter Summary ---
Author Organization [employer] Address [address] [facility] [address] [place] [address] Care Team Providers Care Jalousies Installer Name Role Phone Lupe Moralez BE Primary Care Provider [phone] Perry Quintero MD Unavailable [phone] Reason for Visit * Reason Onset Date Comments Chart Prep 09/23/2024 Encounter Details Date Type Department Care Team ([facility] st Contact Info) Description 09/23/2024 Telephone [facility] MED & PEDS [address] [place] [address] Bibi Correa MA Chart Prep Social History Tobacco Use Types Packs/Day Years [...] encounter Miscellaneous Notes * Telephone Encounter - Bibi Arceo MA - 09/23/2024 8:57 AM EST Chart Prep Labs: done Images: not done Vaccines due: yes Referrals: pending appt Screenings: eye exam , Foot Exam Overdue care gaps: Sbirt documented in this encounter Plan of Treatment Upcoming Encounters Date Type Department Care Team (Late st Contact Info) Description 09/24/2024 1:45 PM EST Office Visit [facility] CHC MED & PEDS [address] [place] [address] Lupe Moralez FNP [address] [place] [address] 09/29/2024 2:00 PM EST Medication Management [facility] MEDICINE [address] [place] [address] documented as of this encounter Visit Diagnoses Not on filedocumented in this encounter Additional Health Concerns Assessment Noted Time PHQ-9 Depression Total Score: 4 02/09/20 24 10:42 AM EDT documented as of this encounter Care Teams Jalousies Installer Relationship Specialty Start Date End Date Lupe Moralez FNP [address] [place] [address] PCP - General Family Medicine 04/16/22 Perry Quintero MD [address] [place] [address] Cardiology 06/14/24 documented as of this encounter
--- OUTSIDE RECORDS SUMMARY | 2024-09-23 14:18 | XMS_ITS | Encounter Summary ---
Author Organization [email or web address] Address [address] [facility] [address] [place] [address] Care Team Providers Care Hardboard Factory Worker Name Role Phone Lupe Moralez Primary Care Provider [phone] Perry Quintero MD Unavailable [phone] Reason for Visit * Reason Onset Date Comments Hospital Follow-up 09/24/2023 Encounter Details Date Type Department Care Team ([facility] st Contact Info) Description 09/24/2023 Telephone [facility] MEDICINE [address] [place] [address] Lupe Moralez FNP [address] [place], [place] [phone] Hospital Follow-up Social History Tobacco Use Types [...] changes. Thank you! Contacted Yanci Morrow via [employer] regarding above message and Yanci reached out to Celina to coordinate. Yanci confirmed that Candida will coordinate this pre-visit consult. Routing message back to PCP galo is aware and to Abby Lord. * Telephone Encounter - Gely Hernandez RN - 09/25/2023 3:22 PM EST TC placed to patient via [employer] and daughter answered. Daughter states patient unable to come to the phone and the moment and that she handles the patient's medical care and can scheduleHFU for her. Daughter explained that patient was having SOB and rising BP and was admitted at [facility]. Daughterstates that they found pulmonary edema and [...] from pt requesting a HDF appt. Hospital: [facility] Date of admission: 09/17 Discharge date: 09/19 Diagnosed: Cardiovascular * Telephone Encounter - Sandeep Hernandez - 09/24/2023 2:44 PM EST Tc from pt requesting a HDF appt. Hospital: [facility] Date of admission: 09/17 Discharge date: 09/19 Diagnosed: Cardiovascular documented in this encounter Plan of Treatment Upcoming Encounters Date Type Department Care Team (Late st Contact Info) Description 09/24/2024 1:45 PM EST Office Visit [facility] CHC MED & PEDS [address] [place] [address] Lupe Moralez FNP [address] [place] [address] 09/29/2024 2:00 PM EST Medication Management [facility] MEDICINE [address] [place] [address] documented as of this encounter Visit Diagnoses Not on filedocumented in this encounter Additional Health Concerns Assessment Noted Time PHQ-9 Depression Total Score: 5 01/03/20 23 2:27 PM EDT documented as of this encounter Care Teams Hardboard Factory Worker Relationship Specialty Start Date End Date Lupe Moralez FNP [address] [place] [address] PCP - General Family Medicine 04/16/22 Perry Quintero MD [address] [place] [address] Cardiology 06/14/24 documented as of this encounter
--- OUTSIDE RECORDS SUMMARY | 2024-09-23 14:18 | XMS_ITS | Encounter Summary ---
Author Organization [employer] Address [address] [facility] [address] [place] [address] Care Team Providers Care Wash And Greaser Name Role Phone Lupe Moralez Primary Care Provider [phone] Perry Quintero MD Unavailable [phone] Reason for Visit * Reason Onset Date Comments Referral 06/19/2023 Encounter Details Date Type Department Care Team ([facility] st Contact Info) Description 06/19/2023 Telephone [facility] MEDICINE [address] [place] [address] Lupe Moralez FNP [address] [place], [place] [phone] Referral Social History Tobacco Use Types Packs/Day [...] Requesting change in location for PT to [facility] if possible. [facility] * Telephone Encounter - Sandeep Hernandez - 06/19/2023 11:18 AM EST Tc from patients daughter requestingphysical therapy referral to be switch to [facility] due to transportation. documented in this encounter Plan of Treatment Upcoming Encounters Date Type Department Care Team (Late st Contact Info) Description 09/24/2024 1:45 PM EST Office Visit [facility] CHC MED & PEDS [address] [place] [address] Lupe Moralez FNP [address] [place] [address] 09/29/2024 2:00 PM EST Medication Management [facility] MEDICINE [address] [place] [address] documented as of this encounter Visit Diagnoses Not on filedocumented in this encounter Additional Health Concerns Assessment Noted Time PHQ-9 Depression Total Score: 5 01/03/20 23 2:27 PM EDT documented as of this encounter Care Teams Wash And Greaser Relationship Specialty Start Date End Date Lupe Moralez FNP [address] [place] [address] PCP - General Family Medicine 04/16/22 Perry Quintero MD [address] [place] [address] Cardiology 06/14/24 documented as of this encounter
--- OUTSIDE RECORDS SUMMARY | 2024-09-23 14:18 | XMS_ITS | Encounter Summary ---
Author Organization [facility] Address [address] [place] [address] 7t [place] [address] Care Team Providers Care Production Worker Name Role Phone Lupe Moralez Primary Care Provider [phone] Perry Quintero MD Unavailable [phone] Reason for Referral * Consultation (STAT) - Authorized Specialty Diagnoses / Procedures Referred By Chet green Referred To Contact Hematology and Oncology Diagnoses Anemia, unspecified type Lupe Moralez FNP [address] [place] [address] Phone: tel: fax: [facility] Referral ID Status Reason Start Date Expiration Date Visits Requested Visits Authorized [id number] Authorized Specialty Services Required 09/17/2024 09/17/2025 1 1 * Consultation (STAT) - Closed Specialty Diagnoses / Procedures Referred By Chet green Referred To Contact Gastroenterology Diagnoses Anemia, unspecified type Lupe Moralez FNP [address] [place] [address] Phone: tel: fax: [facility] Gastroenterology [address] [place], [place] Phone: tel: fax: Referral ID Status Reason Start Date Expiration Date V isits Requested Visits Authorized [id number] Closed Specialty Services Required 09/17/2024 09/17/2025 1 1 Reason for Visit * Reason Comments Diabetes Anemia gout Encounter Details Date Type Department Care Team ([facility] st Contact Info) Description 09/17/2024 1:45 PM EST Office Visit [facility] CHC MED & PEDS [address] [place] [address] Naomy Lupe, DATA ANALYTICS ANALYST [address] [place], [place] Anemia, unspecified type (Primary Dx); Type 2 diabetes mellitus without complication, without long-term current use of insulin (CMS/HCC); Screening for colon cancer; Heart failure with reduced ejection fraction (CMS/HCC); Acute gout involving toe of right foot, unspecified cause Social History Tobacco Use Types Packs/Day Years [...] Mass Index 32.77 09/17/2024 1:54 PM EST documented in this encounter Progress Notes * Lupe Moralez, DATA ANALYTICS ANALYST - 09/17/2024 1:45 PM EST Subjective: Charleen Hines is a 79 y.o. female w/ PMH HFrEF w/ ICD implant, T2DM, hypothyroid, VAMSI on CPAP, CAD, cardiomyopathy, severe aortic stenosis s/p TAVR, right breast CA s/p mastectomy, GERD, CKD, who presents to the office with daughter for a follow up visit: chronic conditions. Interim History: Last PCP visit 06/14/24 Recently returned from a trip to [place] where she was hospitalized for significant anemia, with initial hemoglobin 4.9. Daughter reports that patient received 6 units of blood transfusion. Improved to hemoglobin of 10 approximately 4-5 days later upon discharge. Reports did not complete investi gation as to cause of anemia. Lab work to be scanned into record. HPI: Anemia: She experienced symptoms of fatigue, pallor, dizziness prior to ED visit. She also reportedthat she experienced 2 rounds of diarrhea with possible dark maroon/blood-tinged stool. Denies shortness of breath, overt bleed, other associated symptoms. Last colonoscopy approximately 2021 in [place] per daughter. Gout: Seen yesterday for sick visit for pain, redness, swelling of right foot and toe. Suspected gout. Lab work confirmed elevated uric acid level. Initiated on prednisone with good response. Continues with swelling of right foot. Hospital bed: Requesting order for home hospital bed given complex conditions including heart failure with ICD implant, severe aortic stenosis s/p TAVR, right breast CA s/p mastectomy, as well as recent significant anemia. DME request through [facility]. Review of Systems Constitutional: Negative for chills and fever. Respiratory: Negative for cough and wheezing. Cardiovascular: Negative for chest pain and palpitations. Gastrointestinal: Negative for vomiting. Musculoskeletal: Positive for arthralgias, gait problem and joint swelling. Visit Vitals BP 117/59 (BP Location: Left arm, Patient Position: Sitting, BP Cuff Size: Large adult long) Pulse 86 Temp 97.9 ??F (36.6 ??C) (Temporal) Resp 20 Ht 5' 3 (1.6 m) Wt 185 lb (83.9 kg) LMP (LMP Unknown) SpO2 98% BMI 32.77 kg/m?? OB Status Postmenopausal Smoking Status Never BSA 1.93 m?? Physical Exam Constitutional: Appearance: Normal appearance. HENT: Head: Atraumatic. Right Ear: External ear normal. Left Ear: External ear normal. Cardiovascular: Rate and Rhythm: Normal rate. Pulmonary: Effort: Pulmonary effort is normal. Breath sounds: Normal breath sounds. Musculoskeletal: Right foot: Swelling present. Comments: Erythema and edema at base of right great toe Neurological: Mental Status: She is alert and oriented to person, place, and time. Psychiatric: Mood and Affect: Mood normal. Behavior: Behavior normal. Problem List Items Addressed This Visit Circulatory Heart failure with reduced ejection fraction (CMS/HCC) Overview Hx CAD s/p prior RCA PCI, redo [...] 10-15% on 11/21/23 11/25/23: ICD Implant at [facility] with Dr. Jacob 12/23/23: EF improved to [...] May 2024: Needs abx prophylaxis with procedures Musculoskeletal Gout involving toe of right foot Current Assessment & Plan - Continue with prednisone (monitor BG) - Requesting to check XR w/ hx of bony abnormality of the foot - xray ordered Relevant Orders XR Foot 3+ Views Right Endocrine/Metabolic Type 2 diabetes mellitus without complication ([facility]) Current Assessment & Plan Lab Results Component Value Date HGBA1C 6.9 (A) 09/17/2024 -A1c & lipids well controlled -Eye Exam: established with ophthalmology -Dental: referral to [facility] Dental 09/05/23 -Monofilament: abnormal on 04/16/22 and [...] 06/14/2024 LDLCHOLCAL 54 12/23/2023 LDLCHOLCAL 68 11/01/2022 Relevant Orders POCT Glucose (Completed) POCT HGB A1C (Completed) Hematologic Anemia - Primary Overview Lab Results Component Value Date HGB 9.8 (L) 09/16/2024 HGB 9.7 (L) 06/14/2024 HGB 11.6 (L) 09/17/2023 HGB 11.7 (L) 03/15/2023 HGB 12.9 02/02/2023 - Ferritin and Vit D wnl Sep 2024 Current Assessment & Plan Etiology unknown - GIB in differential. Risk factors: AC Seen in [place] on 09/09/24 and had Hgb of 4.9. Recieved transfusion of about 6 units of blood on09/11/24. Records requested from [place], available lab work reviewed and sent to scan. Referral to [facility] for further eval ED precautions reviewed Relevant Orders CBC auto differential Cologuard?? colon cancer screening Referral to Gastroenterology Referral to Hematology / Oncology Other Visit Diagnoses Screening for colon cancer Relevant Orders Cologuard?? colon cancer screening Follow up: 1 week for swelling right foot & anemia, sooner as needed documented in this encounter Miscellaneous Notes * Assessment & Plan Note - BE Chavez - 09/17/2024 8:04 PM ESTAssociated Problem(s): Gout involving toe of right foot - Continue with prednisone (monitor BG) - Requesting to check XR w/ hx of bony abnormality of the foot - xray ordered * Assessment & Plan Note - BE Chavez - 09/17/2024 7:57 PM ESTAssociated Problem(s): Anemia Etiology unknown - GIB in differential. Risk factors: AC Seen in [place] on 09/09/24 and had Hgb of 4.9. Recieved transfusion of about 6 units of blood on09/11/24. Records requested from [place], available lab work reviewed and sent to scan. Referral to [facility] and [facility] for further eval ED precautions reviewed * Assessment & Plan Note - BE Chavez - 09/17/2024 7:55 PM ESTAssociated Problem(s): Type 2 diabetes mellitus without complication ([facility]) Lab Results Component Value Date HGBA1C 6.9 (A) 09/17/2024 -A1c & lipids well controlled -Eye Exam: established with ophthalmology -Dental: referral to [facility] Dental 09/05/23 -Monofilament: abnormal on 04/16/22 and [...] 06/14/2024 LDLCHOLCAL 54 12/23/2023 LDLCHOLCAL 68 11/01/2022 documented in this encounter Plan of Treatment Upcoming Encounters Date Type Department Care Team (Late st Contact Info) Description 09/24/2024 1:45 PM EST Office Visit [facility] MED & PEDS [address] [place] [address] Lupe Moralez FNP [address] [place] [address] 09/29/2024 2:00 PM EST Medication Management [facility] MEDICINE [address] [place], [place] [phone] Scheduled Orders Name Type Priority Associated Diagnoses Orde r Schedule CBC auto differential Lab Routine Anemia, unspecified type Expected: 09/17/2024 (Approximate), Expires: 09/17/2025 Cologuard?? colon cancer screening Lab Routine Anemia, unspecified type Screening for colon cancer Ordered: 09/17/2024 Scheduled Referrals Name Type Priority Associated Diagnoses Order Schedule Referral to Gastroenterology Outpatient Referral STAT Anemia, unspecified type Expected: 09/17/2024 (Approximate), Expires: 09/17/2025 Referral to Hematology / Oncology Outpatient Referral STAT Anemia, unspecified type Expected: 09/17/2024 (Approximate), Expires: 09/17/2025 documented as of this encounter Procedures Procedure Name Priority Date/Time Associated Diagnosis Comments XR FOOT 3+ VIEWS RIGHT Routine 09/23/2024 1:38 PM EST Acute gout involving toe of right foot, unspecified cause POCT GLYCATED HEMOGLOBIN, TOTAL Routine 09/17/2024 2:07 PM EST Type 2 diabetes mellitus without complication, without long-term current use of insulin ([facility]) POCT GLUCOSE Routine 09/17/2024 2:02 PM EST Type 2 diabetes mellitus without complication, without long-term current use of insulin ([facility]) documented in this encounter Results * XR Foot 3+ Views Right (09/23/2024 1:38 PM EST) Anatomical Region Laterality Modality Lower Extremities, Foot Right Radiogra phic Imaging 09/23/2024 1:38 PM EST Narrative 09/23/2024 2:02 PM EST ? [facility] ?[address] ?[place] [address] ?XRay Report ? Signed ? Patient: Charleen Gallo ?MR#: [id number] ?? [id number] ? : 1945 ?Acct:[id number] ? Age/Sex: 79 / F ?ADM Date: 02/20/25 ? Loc: HO.HHCL ? Attending Dr: Lupe LR ? Ordering Physician: Lupe Moralez ?? Date of Service: 09/23/24 ?? Procedure(s): XR foot RT min 3V ?? Accession Number(s): [id number] ? cc: Lupe Moralez ? EXAMINATION: ?? [...] DD/ 1338 ? TD/TT: 09/23/24 1351 ? Film Editor: ? Procedure Note Laly, [place] - 09/23/2024 [place] [id number] XRay Report Signed Patient: Umberto Gallo#: [id number] : 5Acct:[id number] Age/Sex: 79 / FADM Date: 09/23/24 Loc: HO.HHCL Attending Dr: Lupe LR Ordering Physician: Lupe Moralez Date of Service: 09/23/24 Procedure(s): XR foot RT min 3V Accession Number(s): [id number] cc: Lupe Moralez EXAMINATION: XR FOOT, RIGHT [...] Crescencio Fletcher MD 09/23/2024 02:00 PM EST Dictated By: Crescencio Franz MD Signed By: <Electronically signed by Crescencio Myrick MDin OV> 09/23/24 1400 DD/ 1338 TD/TT: 09/23/24 1351 Film Editor: us Lupe Phalen DATA ANALYTICS ANALYST IMG XR PROCEDURES Final Result * (ABNORMAL) POCT HGB A1C (09/17/2024 2:07 PM EST) Hemoglobin A1C 6.9(A) 4.0 - 6.0 % QC Media Lot # [id number] Lot# Expiration Date Blood 09/17/2024 2:07 PM EST us Lupe Phalen DATA ANALYTICS ANALYST POINT OF CARE TEST ENTER/EDIT ORDERABLES Final Result * (ABNORMAL) POCT Glucose (09/17/2024 2:02 PM EST) Glucose Blood, POC 301(A) 60 - 200 mg/dL QC Media Lot # [id number] Lot# Expiration Date ,08,025 Blood Capillary blood specimen / Unknown 09/17/2024 2:02 PM EST us Lupe Phalen DATA ANALYTICS ANALYST POINT OF CARE TEST ENTER/EDIT ORDERABLES Final Result documented in this encounter Visit Diagnoses Diagnosis Anemia, unspecified type- Primary Type 2 diabetes mellitus without complication, without long-term current use of insulin (CMS/HCC) Screening for colon cancer Special screening for malignant neoplasms, colon Heart failure with reduced ejection fraction (CMS/HCC) Acute gout involving toe of right foot, unspecified cause documented in this encounter Additional Health Concerns Assessment Noted Time PHQ-9 Depression Total Score: 4 02/09/20 24 10:42 AM EDT documented as of this encounter Care Teams Production Worker Relationship Specialty Start Date End Date Lupe Moralez FNP [address] [place] [address] PCP - General Family Medicine 04/16/22 Perry Quintero MD [address] [place] [address] Cardiology 06/14/24 documented as of this encounter
--- OUTSIDE RECORDS SUMMARY | 2024-09-23 14:18 | XMS_ITS | Encounter Summary ---
Author Organization [employer] Address [address] [facility] 7t [place] [address] Care Team Providers Care Livery Car Driver Name Role Phone Lupe Moralez Primary Care Provider [phone] Perry Quintero MD Unavailable [phone] Encounter Details Date Type Department Care Team ([facility] st Contact Info) Description 11/28/2023 Telephone [facility] CHC MED & PEDS [address] [place] [address] Lupe Moralez FNP [address] [place] [address] Social History Tobacco Use Types Packs/Day Years [...] Description 09/24/2024 1:45 PM EST Office Visit [facility] CHC MED & PEDS [address] [place], [place] [phone] Lupe Moralez FNP [address] [place] [address] 09/29/2024 2:00 PM EST Medication Management [facility] MEDICINE [address] [place] [address] documented as of this encounter Visit Diagnoses Not on filedocumented in this encounter Additional Health Concerns Assessment Noted Time PHQ-9 Depression Total Score: 5 01/03/20 23 2:27 PM EDT documented as of this encounter Care Teams Livery Car Driver Relationship Specialty Start Date End Date Lupe Moralez FNP [address] [place] [address] PCP - General Family Medicine 04/16/22 Perry Quintero MD [address] [place] [address] Cardiology 06/14/24 documented as of this encounter
--- OUTSIDE RECORDS SUMMARY | 2024-09-23 14:18 | XMS_ITS | Encounter Summary ---
Author Organization [employer] Address [address] [facility] 7t [place] [address] Care Team Providers Care Senior Solutions Workflow Consultant Name Role Phone Lupe Moralez BE Primary Care Provider [phone] Perry Quintero MD Unavailable Encounter Details Date Type Department Care Team (Latest Contact Info) Description 09/17/2024 Travel Social History Tobacco Use Types Packs/Day Years [...] Description 09/24/2024 1:45 PM EST Office Visit [facility] CHC MED & PEDS [address] [place], [place] [phone] Lupe Moralez FNP [address] [place] [address] 09/29/2024 2:00 PM EST Medication Management [facility] MEDICINE [address] [place] [address] documented as of this encounter Visit Diagnoses Not on filedocumented in this encounter Additional Health Concerns Assessment Noted Time PHQ-9 Depression Total Score: 4 02/09/20 24 10:42 AM EDT documented as of this encounter Care Teams Senior Solutions Workflow Consultant Relationship Specialty Start Date End Date Lupe Moralez FNP [address] [place] [address] PCP - General Family Medicine 04/16/22 Perry Quintero MD [address] [place] [address] Cardiology 06/14/24 documented as of this encounter
--- OUTSIDE RECORDS SUMMARY | 2024-09-23 14:18 | XMS_ITS | Encounter Summary ---
Author Organization [employer] Address [address] [facility] 7t [place] [address] Care Team Providers Care Regulatory Compliance Manager Name Role Phone Lupe Moralez Primary Care Provider [phone] Perry Quintero MD Unavailable [phone] Reason for Visit * Reason Comments Med Refill Encounter Details Date Type Department Care Team (Late st Contact Info) Description 05/09/2023 Refill [facility] MEDICINE [address] [place] [address] Luep Moralez FNP [address] [place], [place] [phone] Gastroesophageal reflux disease, unspecified whether esophagitis present [...] 09/24/2024 1:45 PM EST Office Visit [facility] CHC MED & PEDS [address] [place] [address] Lupe Moralez FNP [address] [place] [address] 09/29/2024 2:00 PM EST Medication Management [facility] MEDICINE [address] [place] [address] documented as of this encounter Visit Diagnoses Diagnosis Gastroesophageal reflux disease, unspecified whether esophagitis present documented in this encounter Additional Health Concerns Assessment Noted Time PHQ-9 Depression Total Score: 5 01/03/20 23 2:27 PM EDT documented as of this encounter Care Teams Regulatory Compliance Manager Relationship Specialty Start Date End Date Lupe Moralez FNP [address] [place] [address] PCP - General Family Medicine 04/16/22 Perry Quintero MD [address] [place] [address] Cardiology 06/14/24 documented as of this encounter
--- OUTSIDE RECORDS SUMMARY | 2024-09-23 14:18 | XMS_ITS | Encounter Summary ---
Author Organization [employer] Address [address] [facility] 7t [place] [address] Care Team Providers Care Radiographer Name Role Phone Lupe Moralez Primary Care Provider [phone] Perry Quintero MD Unavailable [phone] Reason for Visit * Reason Onset Date Comments question 03/02/2024 Encounter Details Date Type Department Care Team ([facility] st Contact Info) Description 03/02/2024 Telephone [facility] [address] [place] [address] Lupe Moralez FNP [address] [place], [place] [phone] question Social History Tobacco Use Types Packs/Day [...] directed to another line to discuss about [facility] locations that are covered by [employer] [...] it's an insurance thing gave insurance number [phone] documented in this encounter Plan of Treatment Upcoming Encounters Date Type Department Care Team (Late st Contact Info) Description 09/24/2024 1:45 PM EST Office Visit [facility] CH[facility] MED & PEDS [address] [place] [address] Lupe Moralez FNP [address] [place] [address] 09/29/2024 2:00 PM EST Medication Management [facility] [address] [place] [address] documented as of this encounter Visit Diagnoses Not on filedocumented in this encounter Additional Health Concerns Assessment Noted Time PHQ-9 Depression Total Score: 4 02/09/20 24 10:42 AM EDT documented as of this encounter Care Teams Radiographer Relationship Specialty Start Date End Date Lupe Moralez FNP [address] [place] [address] PCP - General Family Medicine 04/16/22 Perry Quintero MD [address] [place] [address] Cardiology 06/14/24 documented as of this encounter
--- OUTSIDE RECORDS SUMMARY | 2024-09-23 14:18 | XMS_ITS | Encounter Summary ---
Author Organization [employer] Address [address] [facility] 7t [place] [address] Care Team Providers Care Email Marketing Executive Name Role Phone Lupe Moralez Primary Care Provider [phone] Perry Quintero MD Unavailable [phone] Reason for Visit * Reason Comments Med Refill Encounter Details Date Type Department Care Team (Late st Contact Info) Description 09/17/2024 Refill [facility] MEDICINE [address] [place] [address] Lupe Moralez FNP [address] [place], [place] [phone] Sleep difficulties Social History Tobacco Use Types Packs/Day Years [...] Description 09/24/2024 1:45 PM EST Office Visit [facility] CHC MED & PEDS [address] [place] [address] Lupe Moralez FNP [address] [place] [address] 09/29/2024 2:00 PM EST Medication Management [facility] MEDICINE [address] [place] [address] documented as of this encounter Visit Diagnoses Diagnosis Sleep difficulties documented in this encounter Additional Health Concerns Assessment Noted Time PHQ-9 Depression Total Score: 4 02/09/20 24 10:42 AM EDT documented as of this encounter Care Teams Email Marketing Executive Relationship Specialty Start Date End Date Lupe Moralez FNP [address] [place] [address] PCP - General Family Medicine 04/16/22 Perry Quintero MD [address] [place] [address] Cardiology 06/14/24 documented as of this encounter
--- OUTSIDE RECORDS SUMMARY | 2024-09-23 14:18 | XMS_ITS | Encounter Summary ---
Author Organization [employer] Address [address] [facility] 7t [place] [address] Care Team Providers Care Change Of Address Clerk Name Role Phone Lupe Moralez Primary Care Provider Perry Quintero MD Unavailable [phone] Reason for Visit * Reason Onset Date Comments FYI 12/15/2023 Encounter Details Date Type Department Care Team ([facility] Contact Info) Description 12/15/2023 Telephone [facility] MED [facility] PEDS [address] [place] [address] Lupe Moralez FNP [address] [place] [address] FYI Social History Tobacco Use Types Packs/Day [...] - 12/15/2023 2:27 PM EDT Tc from [facility] with [facility] calling to advise provider pt has been discharged from nursing services with all nursing goals met. documented in this encounter Plan of Treatment Upcoming Encounters Date Type Department Care Team (Late st Contact Info) Description 09/24/2024 1:45 PM EST Office Visit [facility] CHC MED & PEDS [address] [place] [address] Lupe Moralez FNP [address] [place] [address] 09/29/2024 2:00 PM EST Medication Management [facility] MEDICINE [address] [place] [address] documented as of this encounter Visit Diagnoses Not on filedocumented in this encounter Additional Health Concerns Assessment Noted Time PHQ-9 Depression Total Score: 5 01/03/20 23 2:27 PM EDT documented as of this encounter Care Teams Change Of Address Clerk Relationship Specialty Start Date End Date Lupe Moralez FNP [address] [place] [address] PCP - General Family Medicine 04/16/22 Perry Quintero MD [address] [place] [address] Cardiology 06/14/24 documented as of this encounter
--- OUTSIDE RECORDS SUMMARY | 2024-09-23 14:18 | XMS_ITS | Encounter Summary ---
Author Organization [employer] Address [address] [facility] 7t [place] [address] Care Team Providers Care Consulting Business Developer Name Role Phone Lupe Moralez Primary Care Provider Perry Quintero MD Unavailable [phone] Reason for Visit * Reason Comments Med Refill Encounter Details Date Type Department Care Team ([facility] st Contact Info) Description 09/21/2024 Refill [facility] CHC MED & PEDS [address] [place] [address] Lupe Moralez FNP [address] [place] [address] Hypothyroidism, unspecified type Social History Tobacco Use Types [...] encounter Miscellaneous Notes * Telephone Encounter - Maryann Lord LPN - 09/22/2024 9:38 AM EST Rx generated and faxed to [facility] Sco with pcp Notes ----- Message from Lupe Moralez sent at 09/17/2024 7:29 PM EST ----- DME request for hospital bed, Associated dx: heart failure with ICD implant, severe aortic stenosiss/p TAVR, right breast CA s/p mastectomy, as well as recent significant anemia. DME request throughA. Thanks! * Telephone Encounter - Maryann Lord LPN - 09/22/2024 9:38 AM EST ----- Message from Lupe Moralez sent at 09/17/2024 7:29 PM EST ----- DME request for hospital bed, Associated dx: heart failure with ICD implant, severe aortic stenosiss/p TAVR, right breast CA s/p mastectomy, as well as recent significant anemia. DME request throughA. Thanks! documented in this encounter Plan of Treatment Upcoming Encounters Date Type Department Care Team (Late st Contact Info) Description 09/24/2024 1:45 PM EST Office Visit [facility] CHC MED & PEDS [address] [place] [address] Lupe Moralez FNP [address] [place] [address] 09/29/2024 2:00 PM EST Medication Management [facility] MEDICINE [address] [place] [address] documented as of this encounter Visit Diagnoses Diagnosis Hypothyroidism, unspecified type documented in this encounter Additional Health Concerns Assessment Noted Time PHQ-9 Depression Total Score: 4 02/09/20 24 10:42 AM EDT documented as of this encounter Care Teams Consulting Business Developer Relationship Specialty Start Date End Date Lupe Moralez FNP [address] [place] [address] PCP - General Family Medicine 04/16/22 Perry Quintero MD [address] [place] [address] Cardiology 06/14/24 documented as of this encounter
[2024-09-23 16:17] LABS: MANUAL DIFF FLAG NO
[2024-09-23 16:23] LABS: Basophils Absolute Auto 0.1 X10*3/uL (0.0-0.2); Basophils Percent Auto 0.5 % (0-2); Eosinophils Absolute Auto 0.2 X10*3/uL (0.0-0.4); Hematocrit 35.3 % (37.0-47.0); Hemoglobin 10.7 g/dl (12.0-16.0); Imm Gran Abs Auto 0.06 X10*3/uL (0.00-0.03); Imm Gran Pct Auto 0.6 % (0.0-0.4); Lymphocytes Absolute Auto 1.9 X10*3/uL (1.2-4.9); Lymphocytes Percent Auto 18.5 % (20-40); Mean Corpuscular HGB Conc 30.3 g/dl (31.0-35.0); Mean Corpuscular Hemoglobin 27.3 pg (27.0-33.0); Mean Corpuscular Volume 90.1 fL (80.0-98.0); Mean Platelet Volume 10.9 fL (9.4-12.3); Monocytes Absolute Auto 0.6 X10*3/uL (0.1-1.2); Monocytes Percent Auto 5.5 % (2-11); Neutrophils Absolute Auto 7.4 x10*3/uL (2.0-8.3); Neutrophils Percent Auto 72.9 % (45-73); Platelet Count 406 X10*3/uL (160-400); Red Blood Count 3.92 X10*6/uL (4.20-5.50); Red Cell Distribution Width 15.1 % (11.0-16.0); White Blood Count 10.1 X10*3/uL (4.8-10.8)
== END 2024-09-23 13:23 | disposition home or self-care (01) ==
LOC: HO.HHCL 13:22
PROVIDERS: Visit Provider Registered Nurse
DX: D64.9 Anemia, unspecified (principal); M10.9 Gout, unspecified
CPT/HCPCS: 36415; 73630; 85025

== ENCOUNTER → 2024-09-23 13:38 | Outpatient (BNV) | payer OTHER, SELFPAY | PROVIDERS: Visit Provider Radiology Diagnostic Radiology | DX: M19.071 Primary osteoarthritis, right ankle and foot (principal); M20.11 Hallux valgus (acquired), right foot | CPT/HCPCS: 73630 ==

== ENCOUNTER 2024-09-27 14:11 | Outpatient (AMB) | payer OTHER, SELFPAY ==
--- NOTE | 2024-09-27 14:15 | MHC.OFFVIS ---
Vital Signs 09/27/24 14:23 Height 5 ft 3 in Weight 195 lb 6 oz BMI 34.6 BP 100/50 L Blood Pressure Location Lt brachial Position Sitting Pulse 78 Pulse Source Pulse Oximeter Pulse Oximetry (%) 97 Oxygen Delivery Method Room Air Intake Visit Reasons: 1 yr f/u Intake Note: Patient presents follow up VAMSI. Compliance in chart Deputy Program Manager Required: Yes Deputy Program Manager Language: Tobacco Primer Machine Operator Services: Deputy Program Manager Present Deputy Program Manager Name: Nicolas Bucio [id number] Information Interpreted: clinical only Accompanied by: Daughter Allergies Penicillins Allergy (Intermediate, Verified 09/27/24 14:23) Rash HPI Comments Details: 77 y/o female patient presents with her daughter for follow up of insomnia, VAMSI on CPAP. The CPAP compliance and therapy response (06/16/23-09/13/23) reviewed with the patient. She is on APAP [id number]. Usage average 2 hours 19 min. The max presssure was 6.8cmH20 to 8.9cmH20 Leaks are 6.8cmH20 and residual AHI was 3.3/hr She is on trazodone 50 mg, and melatonin 10 mg, and it helps her sleep better. Pt had aortic valve replacement done in March at [facility]. Pt states that she still feels tired, and not really refreshed in the morning. She takes her mask off at night and forgets to put it back on sometimes she feels the pressures are too high for her. She has insomnia and some days are better than others. Her diet is good, denies constipation, drinks plenty of water. Her mood is okay, she socializes and walks to confucianism, goes shopping with her daughter. Completes all her ADLs with her daughter's assistance. Denies any falls. [facility] Medical History Numbness of left hand Bilateral hand numbness Vitamin B12 deficiency Neuropathy Breast cancer, right breast Sleep apnea COVID-19 GERD (gastroesophageal reflux disease) Daytime sleepiness Surgical History History of carpal tunnel release H/O right mastectomy History of bilateral oophorectomies History of cholecystectomy History of appendectomy Family History Father No problems noted. Mother No problems noted. Social History Household Members: Other Household Members Other:: daughter Housing: House Do you presently have visiting nurse or other home services: Yes (home health assistant) Unable to assess alcohol history related to: Unknown Alcohol intake: never Patient Tobacco Use Status: Never used Tobacco Second Hand Smoke Exposure: No service: No Current occupational status: retired Review of Systems Const All systems reviewed & are unremarkable except as noted in HPI and below ENT Reports Normal hearing present Neuro Reports Normal hearing present Physical Exam Vital Signs: Last Vital Signs Pulse 78 09/27/24 14:23 BP 100/50 L 09/27/24 14:23 Pulse Ox 97 09/27/24 14:23 Oxygen Delivery Method Room Air 09/27/24 14:23 BMI result Body Mass Index 34.6 Const General: cooperative Nutritional Appearance: obese Orientation/consciousness: patient oriented x3 Limitations: language barrier (Faroese speaaking only) Neck Neck: Yes full ROM and Yes supple Resp Effort & Inspection: normal respiratory effort and able to speak in complete sentences Neuro General: patient oriented x3 and moves all extremities Cranial nerves: Yes Bilaterally intact EOM present, Yes Normal facial strength present, Yes Midline tongue present, Yes Symmetric palate elevation present, Yes Normal hearing present, Yes Ability to bilaterally rotate head present and Yes Ability to bilaterally elevate shoulders present Cognition (Neuro): normal cognition Motor exam (neuro): 5/5 motor strength present throughout Psych Appearance: grossly normal Mental Status: mental status grossly normal Speech and movement: Normal speech and movement present Affect: normal affect Attitude: cooperative Results Reviewed Results Reviewed: The CPAP compliance and therapy response (06/16/23-09/13/23) reviewed with the patient. She is on APAP [id number]. Usage average 2 hours 19 min. The max presssure was 6.8cmH20 to 8.9cmH20 Leaks are 6.8cmH20 and residual AHI was 3.3/hr Assessment & Plan Assessment & Plan (1) VAMSI on CPAP: Comment: Mild degree of sleep apnea. The total AHI was 7/hr and oxygen concetta was 76%. Code(s): G47.33 - Obstructive sleep apnea (adult) (pediatric); Z99.89 - Dependence on other enabling machines and devices Category: Medical (2) Insomnia: Code(s): G47.00 - Insomnia, unspecified Category: Medical Qualifiers: Insomnia type: primary Qualified Code(s): F51.01 - Primary insomnia (3) Sound sensitivity: Code(s): H83.3X9 - Noise effects on inner ear, unspecified ear Category: Medical Plan Continue to use APAP [id number] as patient experiences good clinical effects when using her CPAP. Advised patient to continue to take melatonin to 10 mg and trazodone 50 mg qHS to initiate sleep. Will send her for mask fitting as the pressures tend cause air to blow forcefully on her face. Patient Instructions: F/u in 3 months for compliance of sleep. Sleep Hygiene, set a regular sleep and wake time. Limit devices in bed, sleep in a dark and cool room. May diffuse essential oils as needed. Limit fluids 2 hours prior to bed time. Take Melatonin and Trazadone as needed to initiate good quality of sleep, and use CPAP daily as patient just had an Aortic Valve Replacement. Will discuss ENT visit at next appt, as she tends to be sensitive to sounds and removes her mask at night. Discussed the importance of wearing hearing aides daily, as it is linked to memory and prevention of dementia. Coding Level of Care Code Est Pt Level 4 (30554) Diagnoses VAMSI on CPAP G47.33; Z99.89 Primary insomnia F51.01 Insomnia type: primary Sound sensitivity H83.3X9
[2024-09-27 14:23] VITALS: BP 100/50; PULSE 78; O2SAT 97; BMI 34.6
--- OUTSIDE RECORDS SUMMARY | 2024-09-27 16:19 | XMS_ITS | Clinical Summary ---
Author Organization [facility] Facility Address [address] [place] [id number] Care Team Providers Care Theater Manager Name Role Phone Unavailable Primary Care [...] patient's age to complete this topic Insurance [facility] ([id number]) [facility] ([id number])
--- OUTSIDE RECORDS SUMMARY | 2024-09-27 16:19 | XMS_ITS | Encounter Summary ---
Author Organization [employer] Address [address] [facility] [address]t [place] [address] Care Team Providers Care Cloth Cutting Inspector Name Role Phone Lupe Moralez Primary Care Provider [phone] Perry Quintero MD Unavailable [phone] Reason for Visit * Reason Onset Date Comments Durable Medical Equipment 09/27/2024 Encounter Details Date Type Department Care Team ([facility] st Contact Info) Description 09/27/2024 Telephone [facility] [address] [place] [address] Lupe Moralez FNP [address] [place] [address] Durable Medical Equipment Social History Tobacco Use Types Packs/Day Years [...] Miscellaneous Notes * Telephone Encounter - Maryann oLrd LPN - 09/27/2024 10:03 AM EST Rx generated and faxed to [facility] ----- Message from Lupe Moralez sent at 09/26/2024 1:33 PM EST ----- DME request for 10 and 1 pillow, associated diagnoses heart failure with reduced ejection fraction and obstructive sleep apnea. Thank you! * Telephone Encounter - Maryann Lord LPN - 09/27/2024 10:02 AM EST ----- Message from Lupe Moralez sent at 09/26/2024 1:33 PM EST ----- DME request for 10 and 1 pillow, associated diagnoses heart failure with reduced ejection fraction and obstructive sleep apnea. Thank you! documented in this encounter Plan of Treatment Upcoming Encounters Date Type Department Care Team (Late st Contact Info) Description 09/29/2024 2:00 PM EST Medication Management [facility] MEDICINE [address] [place] [address] documented as of this encounter Visit Diagnoses Not on filedocumented in this encounter Additional Health Concerns Assessment Noted Time PHQ-9 Depression Total Score: 4 02/09/20 24 10:42 AM EDT documented as of this encounter Care Teams Cloth Cutting Inspector Relationship Specialty Start Date End Date Lupe Moralez FNP [address] [place] [address] PCP - General Family Medicine 04/16/22 Perry Quintero MD [address] [place] [address] Cardiology 06/14/24 documented as of this encounter
--- OUTSIDE RECORDS SUMMARY | 2024-09-27 16:19 | XMS_ITS | Encounter Summary ---
Author Organization [employer] Address [address] [facility] [address] [place] [address] Care Team Providers Care Golf Course Assistant Name Role Phone Lupe Moralez Primary Care Provider [phone] Perry Quintero MD Unavailable [phone] Reason for Visit * Reason Onset Date Comments triage 12/23/2022 Encounter Details Date Type Department Care Team ([facility] st Contact Info) Description 12/23/2022 Telephone [facility]INE [address] [place] [address] Lupe Moralez FNP [address] [place], [place] [phone] triage Social History Tobacco Use Types Packs/Day [...] Triage call returned to patient Daughter via [employer] [id number]. Patient with onset of flu like symptoms [...] Wheezing The caller accepted this outcome speaks french documented in this encounter Plan of Treatment Upcoming Encounters Date Type Department Care Team (Late st Contact Info) Description 09/29/2024 2:00 PM EST Medication Management [facility] [address] [place] [phone] documented as of this encounter Visit Diagnoses Not on filedocumented in this encounter Care Teams Golf Course Assistant Relationship Specialty Start Date End Date Lupe Moralez FNP [address] [place] [address] PCP - General Family Medicine 04/16/22 Perry Quintero MD [address] [place] [address] Cardiology 06/14/24 documented as of this encounter
--- OUTSIDE RECORDS SUMMARY | 2024-09-27 16:19 | XMS_ITS | Encounter Summary ---
Author Organization [employer] Address [address] [facility] [address] [place] [address] Care Team Providers Care Indian Blanket Weaver Name Role Phone Lupe Moralez Primary Care Provider [phone] Perry Quintero MD Unavailable Reason for Visit * Reason Onset Date Comments Durable Medical Equipment 09/27/2024 Encounter Details Date Type Department Care Team ([facility] st Contact Info) Description 09/27/2024 Telephone [facility] MED & PEDS [address] [place] [address] Lupe Moralez FNP [address] [place] [address] Durable Medical Equipment Social History Tobacco Use [...] Encounter - Maryann Lord LPN - 09/27/2024 10:14 AM EST Rx generated and faxed to pos with pcp notes ----- Message from Lupe Moralez sent at 09/26/2024 1:44 PM EST ----- DME request for diabetic shoes (FYI I put addendum at bottom as typically needs MD signature) * Telephone Encounter - Maryann Lord LPN - 09/27/2024 10:13 AM EST ----- Message from Lupe Moralez sent at 09/26/2024 1:44 PM EST ----- DME request for diabetic shoes (FYI I put addendum at bottom as typically needs MD signature) documented in this encounter Plan of Treatment Upcoming Encounters Date Type Department Care Team (Late st Contact Info) Description 09/29/2024 2:00 PM EST Medication Management [facility] MED[facility] [address] [place] [phone] documented as of this encounter Visit Diagnoses Not on filedocumented in this encounter Additional Health Concerns Assessment Noted Time PHQ-9 Depression Total Score: 4 02/09/20 24 10:42 AM EDT documented as of this encounter Care Teams Indian Blanket Weaver Relationship Specialty Start Date End Date Lupe Moralez FNP [address] [place] [address] PCP - General Family Medicine 04/16/22 Perry Quintero MD [address] [place] [address] Cardiology 06/14/24 documented as of this encounter
--- OUTSIDE RECORDS SUMMARY | 2024-09-27 16:19 | XMS_ITS | Encounter Summary ---
Author Organization [employer] Address [address] [facility] [address] [place] [address] Care Team Providers Care Clinical Data Management Manager Name Role Phone Lupe Moralez BE Primary Care Provider [phone] Perry Quintero MD Unavailable Reason for Visit * Reason Comments Foot Pain Encounter Details Date Type Department Care Team (Late st Contact Info) Description 09/16/2024 2:00 PM EST Office Visit [facility] [address], [place] [phone] Bernice Lamb MD [address] [place], [place] [phone] Gout involving toe of right foot, unspecified [...] is your housing situation today? I have rpanav sam 10/06/[address] you [...] 2:00 PM EST Subjective Patient ID: Charleen Hnies is a 79 y.o. female with past medical history of HFrEF w/ ICD implant, T2DM, hypothyroid, VAMSI on CPAP, CAD, cardiomyopathy, severe aortic stenosis s/p TAVR, right breast CA s/p mastectomy, GERD, and CKD who presents to walk in clinic for Foot Pain. Pt reports she went to [place] on 09/02/24 and on 09/09/24 she went to the ER in [place] and her hemoglobin was 4 so she has blood transfusion on 09/11/24. Just got back last night. She denies BRBPR or melanotic stool. Lab Results Component Value Date HGB 9.7 (L) 06/14/2024 HGB 11.6 (L) 09/17/2023 HGB 12.2 04/16/2022 HEMATOCRIT 36.5 04/16/2022 Per caregiver, hemaglobin was 4 in [place] 09/2023 She reports since then she has [...] Uric acid Anemia Etiology unknown. Seen in [place] on 09/09/24 and had Hgb of 4. Got transfusion of about 6 units of blood on 09/11/24. Requesting records from [place]. -ordered CBC -has follow-up tomorrow. Relevant Orders [...] ESTAssociated Problem(s): Anemia Etiology unknown. Seen in [place] on 09/09/24 and had Hgb of 4. Got transfusion of about 6 units of blood on 09/11/24. Requesting records from [place]. -ordered CBC -has follow-up tomorrow. * Assessment [...] Description 09/29/2024 2:00 PM EST Medication Management [facility] [address] [place] [phone] Scheduled Orders Name Type Priority Associated Diagnoses [...] Uric Acid 5.9(H) 2.4 - 5.7 mg/dL [facility] Blood Venous blood specimen / Unknown 09/16/2024 1:56 PM EST 09/16/2024 4:02 PM EST us Bernice Lamb MD LAB BLOOD ORDERABLES Final Result [facility] [address] [place] [phone] documented in this encounter Visit Diagnoses Diagnosis Gout involving toe of right foot, unspecified cause, unspecified chronicity- Primary Anemia, unspecified type documented in this encounter Additional Health Concerns Assessment Noted Time PHQ-9 Depression Total Score: 4 02/09/20 24 10:42 AM EDT documented as of this encounter Care Teams Clinical Data Management Manager Relationship Specialty Start Date End Date Lupe Moralez FNP [address] [place] [address] PCP - General Family Medicine 04/16/22 Perry Quintero MD [address] [place] [address] Cardiology 06/14/24 documented as of this encounter
--- OUTSIDE RECORDS SUMMARY | 2024-09-27 16:19 | XMS_ITS | Clinical Summary ---
Author Organization [employer] Address [address] [place] [address] [address] [place] [address] Care Team Providers [employer] Underground Repairer Name Role Phone Lupe Moralez BE Primary Care Provider [phone] Perry Quintero MD Unavailable [phone] Allergies Active Allergy Reactions Criticality Noted Date Comments Penicillins Rash Low 04/16/2022 Medications Acetaminophen Extra Strength 500 MG tabletIndications:Madiha n TAKE 1 TABLET BY MOUTH EVERY 6 HOURS NEEDED FOR PAIN 40 tablet 1 2021 Active Entresto 24-26 MG tablet TAKE 1 TABLET BY MOUTH TWICE DAILY IN THE MORNING AND IN THE EVENING 2022 Active lidocaine (Lidoderm) 5 % patch APPLY 1 PATCH TOPICALLY TO SKIN, LEAVE ON FOR 12 HOURS AND OFF FOR 12 HOURS DIRECTED NEEDED FOR PAIN 30 patch 11 2022 Active Ciclopirox 0.77 % gel APPLY TOPICALLY ONCE DAILY 2022 Active melatonin 5 MG tablet TAKE 2 TABLETS BY MOUTH AT BEDTIME NEEDED 2022 Active clotrimazole (Lotrimin) 1 % cream APPLY TOPICALLY TO SKIN AND TOENAILS ONCE DAILY FOR 12 WEEKS 2022 Active ammonium lactate (Lac-Hydrin) 12 % lotion APLICAR A LA PLANTA DEL PIE A DIARIO. USE CALZETINES A LA HORA DE ACOSTARSE. 2022 Active Elastic Bandages & Supports (Cervical Collar Adjustable) miscIndications:Cervi aristeo paraspinal muscle spasm Use daily x 3w M62.838 1 each 2022 Active Diclofenac Sodium 1 % gelIndications:Cervic al paraspinal muscle spasm Use thin layer 3-4 times per day by topical route as needed to affected area for pain 100 g 3 2022 Active lidocaine-prilocaine (Emla) 2.5-2.5 % creamIndications:Cerv ical paraspinal muscle spasm Apply thin layer to affected skin by topical route twice daily as needed for pain / neuropathy 30 g 11 2022 Active Blood Glucose Monitoring Suppl (FreeStyle [place] Lite) w/Device kitIndications:Type 2 diabetes mellitus without complication, without long-term current use of insulin ([facility]) USE DIRECTED 1 kit 2023 Active albuterol (2.5 MG/3ML) 0.083% nebulizer solutionIndications:S hortness of breath Take 3 mL (2.5 mg) by nebulization every 6 (six) hours if needed for wheezing. 75 mL 11 2023 Active gabapentin (Neurontin) 600 MG tabletIndications:Tristian ropathy TAKE 1 TABLET BY MOUTH EVERY EVENING 90 tablet 3 2023 Active spironolactone (Aldactone) 25 MG tabletIndications:Cor onary arteriosclerosis TAKE 1 TABLET BY MOUTH EVERYDAY AT NOON 90 tablet 1 2023 Active Eliquis 5 MG tablet Take 1 tablet by mouth 2 times daily. 2023 Active clopidogrel (Plavix) 75 MG tablet Take 1 tablet by mouth Once per day. 2023 Active metoprolol succinate XL (Toprol-XL) 25 MG 24 hr tablet Take 1 tablet by mouth Once per day. at noon 2023 Active glucose blood (FREESTYLE LITE) test strip TEST BLOOD SUGAR TWICE DAILY AND NEEDED 100 strip 11 2023 Active torsemide (Demadex) 10 MG tabletIndications:Hea rt failure with reduced ejection fraction ([facility]) TAKE 1 TABLET BY MOUTH EVERY DAY NEEDED FOR WEIGHT GAIN OF 3 LBS OR MORE OR LEG SWELLING 90 tablet 3 2023 Active budesonide-formoterol (Symbicort) 160-4.5 MCG/ACT inhalerIndications:Sh ortness of breath INHALE 1 PUFF BY MOUTH TWICE DAILY IN THE MORNING AND AT BEDTIME RINSE MOUTH AFTER USING. 10.2 g 3 2023 Active Farxiga 10 MG Take 1 tablet (10 mg) by mouth Once per day. 90 tablet 1 2023 Active TRUEplus Lancets 33G miscIndications:Type 2 diabetes mellitus without complication, without long-term current use of insulin (CMS/HCC) TEST BLOOD SUGAR TWICE DAILY AND NEEDED 100 each 11 2023 Active gabapentin (Neurontin) 300 MG capsuleIndications:Ne uropathy TAKE 1 CAPSULE BY MOUTH EVERYDAY AT NOON 90 capsule 1 2023 Active fluticasone (Flonase) 50 MCG/ACT nasal spray Administer 1 spray into each nostril Once per day. 16 g 2 2023 Active albuterol (Ventolin HFA) 108 (90 Base) MCG/ACT inhalerIndications:Sh ortness of breath Inhale 2 puffs Every 4-6 hours as needed for wheezing or shortness of breath. 18 g 11 2023 Active metFORMIN (Glucophage) 500 MG tabletIndications:Typ e 2 diabetes mellitus without complication, without long-term current use of insulin (CMS/HCC) TAKE 1 TABLET BY MOUTH TWICE DAILY AT NOON AND IN THE EVENING WITH MEALS 180 tablet 1 2023 Active acetaminophen (Tylenol Extra Strength) 500 MG tablet Take 1 tablet (500 mg) by mouth every 6 (six) hours if needed (pain or fever). 120 tablet 3 06/09 Active polyethylene glycol, PEG, 3350 (Glycolax) 17 GM/SCOOP powder MIX 1 CAPFUL (17 GRAM) IN WATER OR JUICE AND TAKE EVERY DAY MAY INCREASE TO 2 TO 3 TIMES DAILY NEEDED FOR CONSTIPATION 550 g 3 2023 Active pantoprazole (ProtoNix) 40 MG EC tablet Take 1 tablet (40 mg) by mouth before breakfast. 90 tablet 1 2023 Active simethicone (Mylicon) 80 MG chewable tablet Chew 1 tablet (80 mg) every 6 (six) hours if needed for flatulence. 30 tablet 3 06/14 Active ammonium lactate (Amlactin) 12 % cream Apply topically if needed for dry skin. 385 g 3 06/14 Active Cyanocobalamin (B-12) 1000 MCG sublingual tablet TAKE 1 TABLET BY MOUTH ONCE WEEKLY FRIDAY MORNING (DISSOLVE) 36 tablet 2023 Active Multiple Vitamins-Minerals (CertaVite Senior/Antioxidant) tablet TAKE 1 TABLET BY MOUTH EVERY OTHER DAY AT NOON 90 tablet 3 2023 Active dapagliflozin (Farxiga) 10 MGIndications:Type 2 diabetes mellitus without complication, without long-term current use of insulin (CMS/HCC) Take 1 tablet (10 mg) by mouth Once per day. 90 tablet 1 08/12 Active Alcohol Swabs (Alcohol Prep) 70 % pads USE DIRECTED 100 each 11 2024 Active tiZANidine (Zanaflex) 2 MG tabletIndications:Spa sm of muscle of lower back Take 1 tablet (2 mg) by mouth Once daily as needed for muscle spasms. 30 tablet 08/27 Active predniSONE (Deltasone) 20 MG tabletIndications:Gou t involving toe of right foot, unspecified cause, unspecified chronicity 2 tabs po daily for 5 days 10 tablet 2024 Active traZODone (Desyrel) 50 MG tabletIndications:Sle ep difficulties TAKE 1/2 TO 1 TABLET BY MOUTH AT BEDTIME NEEDED FOR SLEEP 30 tablet 3 2024 Active glipiZIDE XL (Glucotrol XL) 5 MG 24 hr tabletIndications:Typ e 2 diabetes mellitus without complication, without long-term current use of insulin (CMS/HCC) Take 1 tablet (5 mg) by mouth Once per day if fasting blood sugar above 150. Do not crush, chew, or split. 30 tablet 11 2024 Active atorvastatin (Lipitor) 40 MG tablet TAKE 1 TABLET BY MOUTH EVERY EVENING 90 tablet 3 2024 Active levothyroxine (Synthroid, Levoxyl) 88 MCG tabletIndications:Hyp othyroidism, unspecified type TAKE 1 TABLET BY MOUTH EVERY MORNING 90 tablet 3 2024 Active ferrous gluconate (Fergon) 324 (38 Fe) MG tabletIndications:Ane grant, unspecified type Take 1 pill every Friday, Friday, and Friday. Take with a full glass of water or Vit C containing juice, and ideally 1 hour before a meal or 2 hours after a meal 36 tablet 2024 Active Blood Pressure kitIndications:Heart failure with reduced ejection fraction (CMS/HCC) Please use to check blood pressure as directed. Please fit to patient. Thank you. 1 kit 2024 Active lidocaine-prilocaine (Emla) 2.5-2.5 % creamIndications:Oste oarthritis of first metatarsophalangeal (MTP) joint of right foot Apply topically if needed in the morning, at noon, and at bedtime (pain). 30 g 2 2024 Active atorvastatin (Lipitor) 40 MG tablet Take 1 tablet (40 mg) by mouth at bedtime. 90 tablet 3 09/22 Discontinued levothyroxine (Synthroid, Levoxyl) 88 MCG tabletIndications:Hyp othyroidism, unspecified type Take 1 tablet (88 mcg) by mouth in the morning. 90 tablet 3 09/22 Discontinued traZODone (Desyrel) 50 MG tabletIndications:Sle ep difficulties TAKE 1/2 TO 1 TABLET BY MOUTH AT BEDTIME NEEDED FOR SLEEP 30 tablet 3 09/17 Discontinued Blood Pressure kitIndications:Heart failure with reduced ejection fraction (CMS/HCC) Please use to check blood pressure as directed. Please fit to patient. Thank you. 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 There is a mild lateral deviation of the first metatarsophalangeal joint. Assessment & Plan (09/26/2024 1:35 PM EST): Previously followed with podiatry. Will let us know if interested in new referral. Encouraged comfortable footwear and good foot hygiene Gout involving toe of right foot 09/16/2024 [...] 6 ounces per day). Anemia 09/16/2024 Overview (09/26/2024): Lab Results Component Value Date HGB 10.7 (L) 09/23/2024 HGB 9.8 (L) 09/16/2024 HGB 9.7 (L) 06/14/2024 HGB 11.6 (L) 09/17/2023 HGB 11.7 (L) 03/15/2023 - Ferritin and Vit D wnl Sep 2024 Assessment & Plan (09/26/2024 1:37 PM EST): -Hemoglobin stabilized/mild increase over the past week Etiology unknown - GIB in differential. Risk factors: AC Seen in [place] on 09/09/24 and had Hgb of 4.9. Recieved transfusion of about 6 units of blood on 09/11/24. Records requested from [place], available lab work reviewed and sent to scan. Consult with [facility] Heme/Onc 09/21/2024, scheduled with [facility] GI 10/07/2024 Shared decision making to start p.o. iron supplement. Follow-up with any side effects. ED precautions reviewed Assessment & Plan (09/17/2024 7:57 PM EST): Etiology unknown - GIB in differential. Risk factors: AC Seen in [place] on 09/09/24 and had Hgb of 4.9. Recieved transfusion of about 6 units of blood on 09/11/24. Records requested from [place], available lab work reviewed and sent to scan. Referral to [facility] Heme/Onc and [facility] for further eval ED precautions reviewed Assessment & Plan (09/16/2024 1:49 PM EST): Etiology unknown. Seen in [place] on 09/09/24 and had Hgb of 4. Got transfusion of about 6 units of blood on 09/11/24. Requesting records from [place]. -ordered CBC -has follow-up tomorrow. Spasm of [...] location: [facility] with Roxy Sanon. Referral to [facility] Audiology placed 02/13/24 Also in need of [...] 10-15% on 11/21/23 11/25/23: ICD Implant at [facility] with Dr. Jacob 12/23/23: EF improved [...] abx prophylaxis with procedures Assessment & Plan (09/26/2024 1:33 PM EST): Blood pressure well-controlled Follow up with Cards as scheduled Follow up/ED precautions reviewed DME request for 10 in 1 pillow placed September 2024 Assessment & Plan (12/09/2023 5:47 PM EDT): [...] Followed by [facility] (Dr. José Miguel Mojica) Gastroesophageal reflux disease 02/27/2023 Overview (02/27/2023): -Pt reports med has been helpful for symptom control -Switch from omeprazole to pantoprazole as less med interaction with plavix Assessment & Plan (02/27/2023 12:54 PM EDT): -Increase to pantoprazole 20-40mg daily -Reports previous eval with endoscopy and colonoscopy in [place] approx 2 years with rec for follow [...] Plan (10/07/2023 4:40 PM EST): [facility] Dr[facility] Quintero & Dr. Brennan Cardiac stent [...] (06/14/2023 12:10 PM EST): ?? Follow[facility] Dr[facility] Quintero & Dr. Brennan ?? Cardiac [...] (02/27/2023 12:54 PM EDT): ?? Followed by [facility] Dr[facility] Quintero ?? Cardiac stent placement on 12/17/16 ?? Current cardiac regimen: ?? carvedilol 12.5mg BID ?? DC December 2022 ?? Entresto 24-26mg BID ?? furosemide 20mg daily ?? spironolactone 25mg daily. ?? Antiplatelet - clopidogrel 75 mg daily ?? Statin - simvastatin 20mg nightly Denies chest pain, SOB, palpitations, N/V/D. Assessment & Plan (01/05/2023 3:36 PM EDT): ?? Followed by [facility] Dr. Quintero ?? Cardiac stent placement on [...] diabetes mellitus without complication Assessment & Plan (09/26/2024 1:36 PM EST): Lab Results Component Value Date HGBA1C 6.9 (A) 09/17/2024 -A1c & lipids well controlled -Eye Exam: established with ophthalmology -Dental: referral to [facility] 09/05/23 -Monofilament: abnormal on 04/16/22 and pt referred to podiatry. Last foot eval 09/17/2024. DME request for diabetic shoes sent to. -ACEi/ARB: yes -Statin: yes -Cont metformin 500mg [...] 12/23/2023 LDLCHOLCAL 68 11/01/2022 Assessment & Plan (09/17/2024 7:56 PM EST): Lab Results Component Value Date HGBA1C 6.9 (A) 09/17/2024 -A1c & lipids well controlled -Eye Exam: established with ophthalmology -Dental: referral to [facility] Dental 09/05/23 -Monofilament: abnormal on 04/16/22 and [...] Exam: established with ophthalmology -Dental: referral to [facility] Dental 09/05/23 -Monofilament: abnormal on 04/16/22 and [...] Exam: established with ophthalmology -Dental: referral to [facility] Dental 09/05/23 -Monofilament: abnormal on 04/16/22 and [...] Exam: established with ophthalmology -Dental: referral to [facility] 09/05/23 -Monofilament: abnormal on 04/16/22 and [...] Exam: established with ophthalmology -Dental: referral to [facility] Dental 09/05/23 -Monofilament: abnormal on 04/16/22 and [...] next appt -Lipids: LDL 57, TG 109 Apr 2022, due -Eye Exam: established with ophthalmology -Dental: referral to [facility] 09/05/23 -Monofilament: abnormal on 04/16/22 and [...] Plan (07/29/2022 7:55 PM EST): -Following with [facility] Sleep Medicine Resolved Problems Problem Noted Date Diagnosed Date Resolved Date Chest wall contusion, left, initial encounter 06/06/2006/14/2023 Assessment & Plan (06/06/2023 1:49 PM EDT): Recommended diclofenac gel, tylenol and heat to effected area I will prescribe incentive spirometer to prevent atelectasis. Use albuterol q4h Hospital discharge follow-up 05/19/2023 06/14/2023 Assessment & Plan (05/19/2023 8:19 PM EDT): Patient was hospitalized at [facility] from 10-3 to 10-4 due to chronic [...] Encounters Date Type Department Care Team Description 09/27/2024 Telephone [facility] [address] [place] [address] Lupe Moralez, TOUR DRIVER Durable Medical Equipment 09/27/2024 Telephone [facility] [address] [place] [address] Lupe Moralez, TOUR DRIVER Durable Medical Equipment 09/24/2024 1:45 PM EST Office Visit [facility] [address] [place] [address] Lupe Moralez, TOUR DRIVER Heart failure with reduced ejection fraction (CMS/HCC) (Primary Dx); Cervical paraspinal muscle spasm; Dietary counseling; Exercise counseling; Osteoarthritis of first metatarsophalangeal (MTP) joint of right foot; Type 2 diabetes mellitus without complication, without long-term current use of insulin (CMS/HCC); Anemia, unspecified type 09/24/2024 Travel 09/23/2024 Telephone [facility] [address] [place] [address] Bibi Correa PR Chart Prep 09/21/2024 Refill [facility] [address] [place] [address] Lupe Moralez, TOUR DRIVER Hypothyroidism, unspecified type 09/17/2024 1:45 PM EST Office Visit [facility] [address] [place] [address] Phalen Lupe, TOUR DRIVER Anemia, unspecified type (Primary Dx); Type 2 diabetes mellitus without complication, without long-term current use of insulin (CMS/HCC); Screening for colon cancer; Heart failure with reduced ejection fraction (CMS/HCC); Acute gout involving toe of right foot, unspecified cause 09/17/2024 Travel 09/17/2024 Refill [facility] [address] [place] [address] Lupe Moralez, TOUR DRIVER Sleep difficulties 09/16/2024 2:00 PM EST Office Visit [facility] [address] [place] [phone] Bernice Lamb MD Gout involving toe of right foot, unspecified cause, unspecified chronicity (Primary Dx); Anemia, unspecified type 09/16/2024 Orders Only [facility] [address] [place] [address] Lupe Moralez TOUR DRIVER 08/27/2024 11:00 AM EST Office Visit [facility] [address] [place] [phone] Bernice Lamb MD Cervical paraspinal muscle spasm (Primary Dx); Spasm of muscle of lower back; Spasm of muscle of lower back 08/24/2024 Telephone [facility] [address] [place] [phone] Lupe Moralez FNP Medication Question 08/21/2024 Refill [facility] [address] [place] [phone] Lupe Moralez FNP 08/16/2024 Telephone [facility] [address] [place] [address] Lupe Moralez, TOUR DRIVER Med Refill 08/10/2024 Telephone [facility] [address] [place] [phone] Lupe Moralez FNP Medication Question; Med Refill 07/29/2024 Refill [facility] [address] [place] [phone] Lupe Moralez FNP 07/17/2024 Refill [facility] [address] [place] [phone] Lupe Moralez FNP from Last 3 Months [...] Sign Reading Time Taken Comments Blood Pressure 110/54 09/24/2024 1:50 PM EST Pulse 77 09/24/2024 1:50 PM EST Temperature 36.4 ??C (97.6 ??F) 09/24/2024 1:50 PM ES T Respiratory Rate 18 09/24/2024 1:50 PM EST Oxygen Saturation 98% 09/24/2024 1:50 PM EST Inhaled Oxygen Concentration - - Weight 88.5 kg (195 lb 2 oz) 09/24/2024 1:50 PM EST Height 160 cm (5' 3 ) 09/24/2024 1:50 PM EST Body Mass Index 34.56 09/24/2024 1:50 PM EST Plan of Treatment Upcoming Encounters Date Type Department Care Team (Late st Contact Info) Description 09/29/2024 2:00 PM EST Medication Management [facility] [address] [place] [address] Health Maintenance Due Date Last Done Comments Dental Oral Exam 1945 Dental Prophylaxis 1945 Diabetes: Foot Exam 1954 Eye Exam 1954 Alcohol/Substance Use Screening 1956 RSV Patients and Patients Aged 60 years or older (1 - 1-dose 75+ series) 2019 Zoster Vaccines (3 of 3) 07/02/2022 05/07/2022, 11/03 Diabetes: Hemoglobin A1C 12/15/2024 025, 06/14/2024, 02/09/2024, Additional history exists Influenza Vaccine (#1) 2025 , 04/16/2022, 2019, Additional history exists Postponed from 04/04/2024 (Patient Refused) Depression Screening 02/08/2025 02/09/2024, 02/09/20 24 Dental X-Ray: Bitewings 02/18/2025 02/18/2024 DTaP/Tdap/Td Vaccines (1 - Tdap) 06/14/2025 Postponed from 1964 (Other Patient Reasons) Diabetes: Urine Protein Screening 06/14/2025 06/14/2024 Lipid Panel 06/14/2025 06/14/2024, 05/2 08/2023, 11/01/2022, Additional history exists COVID-19 Vaccine ( season) 2025 07/03/2021, 10/24/2020, 10/02/2020 Postponed from 04/04/2024 (Patient Refused) SDOH Screening 09/17/2025 09/17/2024 Tobacco Screening 09/24/2025 09/24/2024 Dental X-Ray: Full Mouth 02/18/2027 02/18/2024 Pneumococcal [...] involving toe of right foot, unspecified cause CBC WITH AUTO DIFFERENTIAL Routine 09/23/2024 1:24 PM EST Anemia, unspecified type POCT GLYCATED HEMOGLOBIN, TOTAL Routine 09/17/2024 2:07 PM EST Type 2 diabetes mellitus without complication, without long-term current use of insulin ([facility]) POCT GLUCOSE Routine 09/17/2024 2:02 PM EST Type 2 diabetes mellitus without complication, without long-term current use of insulin ([facility]) SLIDE REVIEW Routine 09/16/2024 1:56 PM EST [...] complication, without long-term current use of insulin ([facility]) Healthcare maintenance LIPID PANEL, STANDARD Routine 06/14/2024 12:51 PM EST Type 2 diabetes mellitus without complication, without long-term current use of insulin ([facility]) Healthcare maintenance INTRAORAL - COMPLETE SERIES OF RADIOGRAPHIC IMAGES Routine 02/18/2024 2:00 PM EDT from Last 3 Months or Most Recently Relevant to Health Maintenance Results * XR Foot 3+ Views Right (09/23/2024 1:38 PM EST) Anatomical Region Laterality Modality Lower Extremities, Foot Right Radiogra [facility] 09/23/2024 1:38 PM EST Narrative 09/23/2024 2:02 PM EST ? [facility] ?[address] ?[place] [address] ?XRay Report ? Signed ? Patient: Fajardo Hines,Charleen ?MR#: MM ?? [id number] ? : 1945 ?Acct:[id number] ? Age/Sex: 79 / F ?ADM Date: 02/20/25 ? Loc: HO.HHCL ? Attending Dr: Lupe LR ? Ordering Physician: Lupe Moralez ?? Date of Service: 09/23/24 ?? Procedure(s): XR foot RT min 3V ?? Accession Number(s): [id number] ? cc: Lupe Moralez TOUR DRIVER ? EXAMINATION: ?? XR FOOT, RIGHT ? [...] Fletcher MD ??09/23/2024 02:00 PM ?? EST RP ? Dictated By: ?Crescencio Franz MD ? Signed By: ?<Electronically signed by Crescencio Myrick MD in OV> ? 09/23/24 1400 ? DD/ 1338 ? TD/TT: 09/23/24 1351 ? Superintendent Pipelines: ? Procedure Note Kashmir Ruffin - 09/23/[address] [address] XRay Report Signed Patient: Umberto Gallo#: MM [id number] : 5Acct:[id number] Age/Sex: 79 / FADM Date: 09/23/24 Loc: HO.CL Attending Dr: Lupe Moralez TOUR DRIVER Ordering Physician: Lupe Moralez Date of Service: 09/23/24 Procedure(s): XR foot RT min 3V Accession Number(s): [id number] cc: Phalen,Lupe TOUR DRIVER EXAMINATION: XR FOOT, RIGHT CLINICAL INFORMATION: pain [...] 09/23/24 1400 DD/ 1338 TD/TT: 09/23/24 1351 Superintendent [employer]ipelines: Lupe Moralez TOUR DRIVER IMG XR PROCEDURES Final Result * (ABNORMAL) CBC auto differential (09/23/2024 1:24 PM EST) Only the most recent of2 resultswithin the time period is included. White Blood Count 10.1 4.8 - 10.8 X10*3/uL [facility] Red Blood Count 3.92(L) 4.20 - 5.50 X10*6/uL [facility] Hemoglobin 10.7(L) 12.0 - 16.0 g/dl [facility] Hematocrit 35.3(L) 37.0 - 47.0 % [facility] Mean Corpuscular Volume 90.1 80.0 - 98.0 fL [facility] Mean Corpuscular Hemoglobin 27.3 27.0 - 33.0 pg [facility] Mean Corpuscular HGB Conc 30.3(L) 31.0 - 35.0 g/dl [facility] Red Cell Distribution Width 15.1 11.0 - 16.0 % [facility] Platelet Count 406(H) 160 - 400 X10*3/uL [facility] Mean Platelet Volume 10.9 9.4 - 12.3 fL [facility] Neutrophils Percent Auto 72.9 45 - 73 % [facility] Imm Gran Pct Auto 0.6(H) 0.0 - 0.4 % [facility] Lymphocytes Percent Auto 18.5(L) 20 - 40 % [facility] Monocytes Percent Auto 5.5 2 - 11 % [facility] Eosinophils Percent Auto 2.0 0 - 4 % [facility] Basophils Percent Auto 0.5 0 - 2 % [facility] NRBC Pct Auto 0.0 0.0 - 0.2 /100WBC [facility] Neutrophils Absolute Auto 7.4 2.0 - 8.3 x10*3/uL [facility] Imm Gran Abs Auto 0.06(H) 0.00 - 0.03 X10*3/uL [facility] Lymphocytes Absolute Auto 1.9 1.2 - 4.9 X10*3/uL [facility] Monocytes Absolute Auto 0.6 0.1 - 1.2 X10*3/uL [facility] Eosinophils Absolute Auto 0.2 0.0 - 0.4 X10*3/uL [facility] Basophils Absolute Auto 0.1 0.0 - 0.2 X10*3/uL [facility] NRBC Abs Auto 0.000 0.0 - 0.012 X10*3/uL [facility] Blood Venous blood specimen / Unknown 09/23/2024 1:24 PM EST 09/23/2024 4:13 PM EST us Lupe Moralez TOUR DRIVER LAB BLOOD ORDERABLES Final Res ult [facility] [address] [place] [phone] * (ABNORMAL) POCT HGB A1C (09/17/2024 2:07 PM EST) Hemoglobin A1C 6.9(A) 4.0 - 6.0 % QC Media Lot # [id number] Lot# Expiration Date Blood 09/17/2024 2:07 PM EST us Lupe Moralez TOUR DRIVER POINT OF CARE TEST ENTER/EDIT ORDERABLES Final Result * (ABNORMAL) POCT Glucose (09/17/2024 2:02 PM EST) Glucose Blood, POC 301(A) 60 - 200 mg/dL QC Media Lot # [id number] Lot# Expiration Date Blood Capillary blood specimen / Unknown 09/17/2024 2:02 PM EST Lupe Moralez [facility] POINT OF CARE TEST ENTER/EDIT ORDERABLES Final Result * Slide Review (09/16/2024 1:56 PM EST) Slide Review VERIFIED [facility] 09/16/2024 1:56 PM EST 09/16/2024 4:02 PM EST Lupe Moralez [facility] BLOOD ORDERABLES Final Res ult [facility] [address] [place] [phone] * Vitamin D, 25-Hydroxy, Total, Immunoassay (09/16/2024 1:56 PM EST) Vitamin D 25-OH Total 53.0 >30 ng/mL [facility] Comment:Health Based Referen ce Values*< 20 ng/mL Wrjorhlwf22-78 ng/mL Insufficient> 30 ng/mL Sufficient*Daja LUNDBERG. N [...] EST 09/16/2024 3:58 PM EST Lupe Moralez [facility] BLOOD ORDERABLES Final Res ult Performing Organization Address [facility] Co de Phone Number [facility] [address] [place] [phone] * (ABNORMAL) Iron And Total Iron Binding Capacity (09/16/2024 1:56 PM EST) Iron 20(L) 30 - 160 mcg/dL [facility] Total Iron Binding Capacity 258 228 - 428 mcg/dL [facility] Percent Iron Saturation 8(L) 15 - 50 % [facility] Unsaturated Iron Binding 238 ug/dL [facility] Blood Venous blood specimen / Unknown 09/16/2024 1:56 PM EST 09/16/2024 4:02 PM EST Lupe Moralez [facility] BLOOD ORDERABLES Final Res ult Performing Organization Address [facility] de Phone Number [facility] [address] [place] [phone] * (ABNORMAL) Reticulocyte Count (09/16/2024 1:56 PM EST) Reticulocytes Absolute 0.080 0.026 - 0.095 X10*6/uL [facility] Immature Retic Fraction 25.5(H) 3.0 - 15.9 % [facility] Retic HGB Equivalent 24.3(L) 30.0 - 35.0 pg [facility] Reticulocyte Percent 2.2(H) 0.5 - 1.8 % [facility] Blood Venous blood specimen / Unknown 09/16/2024 1:56 PM EST 09/16/2024 4:02 PM EST Lupe Clarissaraji TOUR [employer] LAB BLOOD ORDERABLES Final Res ult Performing Organization Address [facility]/ZIP Co de Phone Number [facility] [address] [place] [phone] * (ABNORMAL) Uric acid (09/16/2024 1:56 PM EST) Uric Acid 5.9(H) 2.4 - 5.7 mg/dL [facility] Blood Venous blood specimen / Unknown 09/16/2024 1:56 PM EST 09/16/2024 4:02 PM EST Bernice Lamb MD LAB BLOOD ORDERABLES Final Result Performing Organization Address [facility]/ZIP Co de Phone Number [facility] [address] [place] [phone] * Ferritin (09/16/2024 1:56 PM EST) Pathologist [facility] Ferritin 53 10 - 250 ng/mL [facility] Blood Venous blood specimen / Unknown 09/16/2024 1:56 PM EST 09/16/2024 3:58 PM EST Lupe Naomy [facility] BLOOD ORDERABLES Final Res ult Performing Organization Address [facility]/ZIP Co de Phone Number [facility] [address] [place] [phone] * Albumin, Random Urine W/Creatinine (06/14/2024 12:58 PM EST) Creatinine, Urine 54.88 mg/dL [facility] Microalbumin Urine <5.0 mg/L [facility] Microalbum Creatinine Ratio Ur TNP <30 ug/mg cr [facility] Comment:Unable to calculate albumin/creatinine ratio due to lowmicroalbumin or creatinine result. Urine 06/14/2024 12:5 8 PM EST 06/14/2024 2:08 PM EST Lupe Moralez [facility] URINE ORDERABLES Final Res ult Performing Organization Address [facility] Co de Phone Number [facility] [address] [place] [phone] * (ABNORMAL) Lipid Panel, Standard (06/14/2024 12:51 PM EST) Triglycerides 167(H) <150 mg/dL [facility] Comment:Desirable Triglyceri de: less than 150 mg/dLBorderline High Triglyceride 150-199 mg/dLHigh Triglyceride: 200-499 mg/dLVery High Triglyceride: greater than or equal to 5OO mg/dL Cholesterol 112 <200 mg/dL [facility] Comment:Desirable Cholestero l: less than 200 mg/dLBorderline High Cholesterol: 200-239 mg/dLHigh Cholesterol: greater than 239 mg/dL LDL Cholesterol Calculated 41 <100 mg/dL [facility] Comment:Desirable LDL: less than 100 mg/dLNear Optimal/Above Optimal LDL: 110- 129 mg/dLBorderline High LDL: 130-159 mg/dLHigh LDL: 160-189 mg/dLVery High LDL: greater than or equal to 190 mg/dL HDL Cholesterol 38(L) >40 mg/dL [facility] Comment:Desirable HDL: great er than 40 mg/dL Note: This HDL assay may give artificially low results in patients with liver disease. Blood Venous blood specimen / Unknown 06/14/2024 12:51 PM EST 06/14/2024 2:03 PM EST Lupe Moralez [facility] BLOOD ORDERABLES Final Res ult Performing Organization Address [facility]/ZIP Co de Phone Number [facility] [address] [place] [phone] from Last 3 Months or Most Recently Relevant to Health Maintenance Insurance [facility] [place] [employer] C/O [employer] Care Teams Underground Repairer Relationship Specialty Start Date End Date Lupe Moralez FNP [address] [place] [address] PCP - General Family Medicine 04/16/22 Perry Quintero MD [address] [place] [phone] Cardiology 06/14/24
--- OUTSIDE RECORDS SUMMARY | 2024-09-27 16:19 | XMS_ITS | Encounter Summary ---
Author Organization [facility] [facility] Address [address] [place] [address] 7t [place] [address] Care Team Providers Care Roustabout Crew Name Role Phone Lupe Moralez Primary Care Provider [phone] Perry Quintero MD Unavailable Encounter Details Date Type Department Care Team ([facility] Contact Info) Description 11/07/2022 Abstract [facility] [address] [place] [address] [phone] Lupe Moralez FNP [address] [place] [phone] Social History Tobacco Use Types Packs/Day Years [...] Upcoming Encounters Date Type Department Care Team ([facility] Contact Info) Description 09/29/2024 2:00 PM EST Medication Management [facility] [address] [place] [phone] documented as of this encounter Visit Diagnoses Not on filedocumented in this encounter Care Teams Roustabout Crew Relationship Specialty Start Date End Date Lupe Moralez FNP [address] [place] [address] PCP - General Family Medicine 04/16/22 Perry Quintero MD [address] [place] [address] Cardiology 06/14/24 documented as of this encounter
--- OUTSIDE RECORDS SUMMARY | 2024-09-27 16:19 | XMS_ITS | Encounter Summary ---
Author Organization [facility] Address [address] [facility] 7t [place] [address] Care Team Providers Care Ironworker Helper Shop Name Role Phone Lupe Moralez Primary Care Provider [phone] Perry Quintero MD Unavailable [phone] Encounter Details Date Type Department Care Team (Late Contact Info) Description 03/18/2023 Abstract [facility]INE [address] [place] [address] [phone] Lupe Moralez FNP [address] [place] [phone] Social History Tobacco Use Types Packs/Day Years [...] Encounters Date Type Department Care Team (Late Contact Info) Description 09/29/2024 2:00 PM EST Medication Management [facility] [address] [place] [address] documented as of this encounter Visit Diagnoses Not on filedocumented in this encounter Additional Health Concerns Assessment Noted Time PHQ-9 Depression Total Score: 5 01/03/20 23 2:27 PM EDT documented as of this encounter Care Teams Ironworker Helper Shop Relationship Specialty Start Date End Date Lupe Moralez FNP [address] [place] [address] PCP - General Family Medicine 04/16/22 Perry Quintero MD [address] [place] [address] Cardiology 06/14/24 documented as of this encounter
--- OUTSIDE RECORDS SUMMARY | 2024-09-27 16:19 | XMS_ITS | Data Portability ---
Author Organization [employer] Address [address] [place] [phone] Care Team Providers Care General Operations Agent Name Role Phone [facility] Referring Provider HIM CCA OTHER Assessment Encounter [...] Orders prednisone 20 mg tablet 2022 023 [facility], [address] [place] [address], [id number], 3 18:51:06 prednisone 20 mg tablet 2022 023 [facility], [address] [place] [address], [id number], 3 18:38:05 ipratropium 0.5 mg-albutero l 3 mg (2.5 mg base)/3 mL nebulizatio n soln 2022 023 [facility], [address] [place] [address], [id number], 3 18:51:10 albuterol sulfate HFA 90 mcg/actuati on aerosol inhaler [id number], [address] [facility], [place], [place], [id number], 3 19:15:11 albuterol sulfate 2.5 mg/3 mL [...] Not available Not available Not available 06/01/[phone] SNOMED Not Available [employer] - production [...] Available Not Available No t Available [employer] [place] Lite kit USE DIRECTED active Not Available [...] Address Organization Details Last Updated DateTime 2 973402. 792 g 18 /min 98.5 [degF] 74 /min 165.1 cm 96 % 96 % 101 mm[Hg] 68 mm[Hg] Not Available [employer] 2 16:36:35 Date Recorded Heart rate Body temperature Oxygen saturation Oxygen saturation in Arterial blood by Pulse oximetry Body weight Respiratory rate Systolic blood pressure Diastolic blood pressure Provider Name and Address Organization Details Last Updated DateTime 3 66 /min 98.4 [degF] 95 % 95 % 59987.2 56 g 16 /min 109 mm[Hg] 48 mm[Hg] Not Available [employer] 3 18:59:59 Date Recorded Body weight Oxygen saturation Oxygen saturation in Arterial blood by Pulse oximetry Heart rate Body temperature Respiratory rate Systolic blood pressure Diastolic blood pressure Provider Name and Address Organization Details Last Updated DateTime 3 69899.3 6 g 97 % 97 % 80 /min 97.7 [degF] 14 /min 96 mm[Hg] 52 mm[Hg] Not Available [employer] 3 18:35:18 Social History None recorded. Functional Status None recorded. Mental Status None recorded. Family History Nothing Reported. Medical History No medical history recorded. Gynecological HistoryNo gynecological history recorded. Obstetrics History GPAL:G 0 P 0 0 0 0 Past Encounters Encounter ID Performer Location Encounter Start Date Encounter Closed Date Diagnosis/Indication Diagnosis SNOMED-CT Code Diagnosis ICD10 Code Diagnosis Note [id number] oMise Chapa MD Main - [address] [phone] 07/08/2022 16:12:20 08/11/2023 11:58:45 Gastroesophageal reflux disease 564525896 K21.00 This 76-year-ol d female called vaughnED yana cleary of moderately severe abdominal pain. When the jail officer arrived, she seemed to indicate heartburn and [...] [id number] Tiffany Saravia MD Main - [facility] [address] [place] [phone] 08/12/2022 18:59:54 08/14/2022 10:30:11 Exacerbation of intermittent asthma 309285337 J45.21 76y F with PMH CHF and asthma with mild asthma exacerbati on. Recently moved from [place]. No prior need for steroid treatment in setting of asthma. VSS. Responded well to albuterol nebs suggesting asthma over CHF. Will send inhaler to pharmacy. Encourage patient to f/u with primary care office to receive inhalers and to call us or primary care office if symptoms not improving with albuterol alone or if worsening. [id number] Yunior Berman MD Main - [facility] [address] [place] [phone] 12/23/2022 18:35:12 12/24/2022 14:44:55 Acute exacerbation of chronic obstructive pulmonary disease 466840231 J44.1 Health Concerns Section Related Observation LastModified by Organization Detai ls LastModified Time None Recorded Concern Status LastModified by Organization Details LastModified Time None Recorded Advance Directives Directive None Recorded Payers Encounter Date Sequence Insurance Name Policy Number Policy Chavez Covered Member ID Chavez Member ID Guarantor Name 07/08/2022 1 [facility] (MEDICARE REPLACEMENT/ADV ANTAGE - PPO) Charleen Fajardo Hines [id number] Charleenjulian Romerooza 08/12/2022 1 [facility] - DOS PRIOR TO 2022 - DUAL ELIGIBLE (MEDICARE REPLACEMENT/ADV ANTAGE - HMO) Charleen Sorensengoshine RomeroHines [id number] Charleen Sorensengoshine RomeroHines 12/23/2022 1 [facility] - DOS PRIOR TO 2022 - DUAL ELIGIBLE (MEDICARE REPLACEMENT/ADV ANTAGE - HMO) Charleen Romerooza [id number] Charleen Hines Notes Date Note Type Note [...] ................... ................... ................... ................... ................... ................... ........ Sewer Contractor Note: Sent to a call for a pt complaining of abd pain and dizziness. SC8 arrives on scene, pt is alert and oriented. Airway is patent. Pt and daughter speak Mohawk. Casino Investigator line used. Pt was treated for Covid [...] non-tender, no distention; Skin: pink, warm, dry; [facility] [place] Mylanta PO. Pt advised to stay hydrated, buy Prilosec OTC and follow up with PCP. Red flags discussed. Pt/daughter have no further questions. ................... ................... ................... ................... ................... ................... ................... ........ 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 Also some mild shortness of breath. reports possible history of asthma but not on any inhalers. no sick contacts. no rhinorrhea or pharyngitis. has been on inhalers in the past but none currently. Tiffany Saravia MD [address] [place] [address],[address], [place], [address], [employer] 08/12/2022 19:36:51 12/23/2022 text/html HPI: Patient with [...] ................... ................... ................... ................... ................... ................... ........ Sewer Contractor Note From Wally Bajwa: Pt reports dry [...] worsening sx which are reviewed with her. [facility] [place] [place] Medication Orders: prednisone 20 mg tablet: Administered Sewer Contractor Allergies: Penicillin ................... ................... ................... ................... ................... ................... ................... ........ Disposition: Fulfilled Yunior Berman MD [address] [place] [address],[address] [facility], [place], [address], [employer] [facility] 12/23/2022 19:20:03 OBGyn Episode No OBEpisode recorded.
--- OUTSIDE RECORDS SUMMARY | 2024-09-27 16:19 | XMS_ITS | Encounter Summary ---
Author Organization [employer] Address [address] [facility] 7t [place] [address] Care Team Providers Care Log Hooker Name Role Phone Lupe Moralez Primary Care Provider [phone] Perry Quintero MD Unavailable [phone] Encounter Details Date Type Department Care Team ([facility] st Contact Info) Description 01/03/2023 Telephone [facility] [address] [place] [address] Lupe Moralez FNP [address] [place] [address] Social History Tobacco Use Types Packs/Day Years [...] - 01/09/2023 9:04 AM EDT T/c to [phone] to [facility] to inform below message from provider, No answer. LVM to call back [phone]. * Telephone Encounter - BE Chavez - 01/09/2023 7:41 AM EDT DME request for nebulizer generated. Thank you. * Telephone Encounter - Esthela Hidalgo - 01/03/2023 12:55 PM EDT Tc from [facility] from [facility] requesting a nebulizer machine . Any question please call phone # [phone] ext [phone]. Please fax order to [phone] documented in this encounter Plan of Treatment Upcoming Encounters Date Type Department Care Team (Late st Contact Info) Description 09/29/2024 2:00 PM EST Medication Management [facility] [address] [place] [address] documented as of this encounter Visit Diagnoses Not on filedocumented in this encounter Additional Health Concerns Assessment Noted Time PHQ-9 Depression Total Score: 5 01/03/20 23 2:27 PM EDT documented as of this encounter Care Teams Log Hooker Relationship Specialty Start Date End Date Lupe Moralez FNP [address] [place] [address] PCP - General Family Medicine 04/16/22 Perry Quintero MD [address] [place] [address] Cardiology 06/14/24 documented as of this encounter
--- OUTSIDE RECORDS SUMMARY | 2024-09-27 16:19 | XMS_ITS | Encounter Summary ---
Author Organization [employer] Address [address] [facility] 7t [place] [address] Care Team Providers Care Remote Control Assembler Name Role Phone Lupe Moralez Primary Care Provider [phone] Perry Quintero MD Unavailable [phone] Reason for Visit * Reason Onset Date Comments Med Refill 08/16/2024 Encounter Details Date Type Department Care Team ([facility] st Contact Info) Description 08/16/2024 Telephone [facility] [address] [place] [address] Lupe Moralez FNP [address] [place] [address] Med Refill Social History Tobacco Use Types [...] 24 hr tablet To be sent to: [facility] - [place], [place] - [address] [place] [address] documented in this encounter Plan of Treatment Upcoming Encounters Date Type Department Care Team (Late st Contact Info) Description 09/29/2024 2:00 PM EST Medication Management [facility] [address] [place] [address] documented as of this encounter Visit Diagnoses Not on filedocumented in this encounter Additional Health Concerns Assessment Noted Time PHQ-9 Depression Total Score: 4 02/09/20 24 10:42 AM EDT documented as of this encounter Care Teams Remote Control Assembler Relationship Specialty Start Date End Date Lupe Moralez FNP [address] [place] [address] PCP - General Family Medicine 04/16/22 Perry Quintero MD [address] [place] [address] Cardiology 06/14/24 documented as of this encounter
--- OUTSIDE RECORDS SUMMARY | 2024-09-27 16:19 | XMS_ITS | Encounter Summary ---
Author Organization [facility] Address [address] [facility] 7t [place] [address] Care Team Providers Care Fiscal Services Manager Name Role Phone Lupe Moralez Primary Care Provider [phone] Perry Quintero MD Unavailable [phone] Reason for Visit * Reason Onset Date Comments ER Follow-up 01/27/2023 Encounter Details Date Type Department Care Team ([facility] st Contact Info) Description 01/27/2023 Telephone [facility] [address] [place] [address] Lupe Moralez FNP [address] [place], [place] [phone] ER Follow-up Social History Tobacco Use Types [...] - 01/28/2023 9:55 AM EDT T/C to [phone] for below message, pt. Is doing good. Pt. Schedule for ED follow up on 02/05/2023. Pt. Also advised to go to nearest ED in case of any new, return or worsening symptoms including CP, SOB or breathing problem. [facility] hours are reviewed. ED summery printed and scanned into pt's chart. * Telephone Encounter - Eleni Rahman - 01/27/2023 1:44 PM EDT Patient calling to report ED visit on 01/23/[address] [facility]. Seen for breathing trouble and asthma. Patient advised will forward to team nurse for follow up. Patient and daughter speaks grenadian. documented in this encounter Plan of Treatment Upcoming Encounters Date Type Department Care Team (Late st Contact Info) Description 09/29/2024 2:00 PM EST Medication Management [facility] [address] [place] [address] documented as of this encounter Visit Diagnoses Not on filedocumented in this encounter Additional Health Concerns Assessment Noted Time PHQ-9 Depression Total Score: 5 01/03/20 23 2:27 PM EDT documented as of this encounter Care Teams Fiscal Services Manager Relationship Specialty Start Date End Date Lupe Moralez FNP [address] [place] [address] PCP - General Family Medicine 04/16/22 Perry Quintero MD [address] [place] [address] Cardiology 06/14/24 documented as of this encounter
--- OUTSIDE RECORDS SUMMARY | 2024-09-27 16:20 | XMS_ITS | Encounter Summary ---
Author Organization [employer] Address [address] [facility] 7t [place] [address] Care Team Providers Care Beauty Culture Teacher Name Role Phone Lupe Moralez Primary Care Provider [phone] Perry Quintero MD Unavailable [phone] Reason for Visit * Reason Onset Date Comments Hospital Follow-up 09/24/2023 Encounter Details Date Type Department Care Team ([facility] st Contact Info) Description 09/24/2023 Telephone [facility] [address] [place] [address] Lupe Moralez FNP [address] [place], [place] [phone] Hospital Follow-up Social History Tobacco Use Types [...] changes. Thank you! Contacted Yanci Morrow via [employer] regarding above message and Yanci reached out to [place] to coordinate. Yanci confirmed that Candida will coordinate this pre-visit consult. Routing message back to PCP galo is aware and to Abby Lord. * Telephone Encounter - Gely Hernandez RN - 09/25/2023 3:22 PM EST TC placed to patient via [employer] Dielectric Tester and daughter answered. Daughter states patient unable to come to the phone and the moment and that she handles the patient's medical care and can scheduleHFU for her. Daughter explained that patient was having SOB and rising BP and was admitted at [facility]. Daughterstates that they found pulmonary edema [...] from pt requesting a HDF appt. [facility] Date of admission: 09/17 Discharge date: 09/19 Diagnosed: Cardiovascular * Telephone Encounter - Sandeep Hernandez - 09/24/2023 2:44 PM EST Tc from pt requesting a HDF appt. Hospital: [facility] Date of admission: 09/17 Discharge date: 09/19 Diagnosed: Cardiovascular documented in this encounter Plan of Treatment Upcoming Encounters Date Type Department Care Team (Late st Contact Info) Description 09/29/2024 2:00 PM EST Medication Management [facility] MEDICINE [address] [place] [address] documented as of this encounter Visit Diagnoses Not on filedocumented in this encounter Additional Health Concerns Assessment Noted Time PHQ-9 Depression Total Score: 5 01/03/20 23 2:27 PM EDT documented as of this encounter Care Teams Beauty Culture Teacher Relationship Specialty Start Date End Date Lupe Moralez FNP [address] [place] [address] PCP - General Family Medicine 04/16/22 Perry Quintero MD [address] [place] [address] Cardiology 06/14/24 documented as of this encounter
--- OUTSIDE RECORDS SUMMARY | 2024-09-27 16:20 | XMS_ITS | Encounter Summary ---
Author Organization [employer] Address [address] [facility] [address] [place] [address] Care Team Providers Care Day Light Relief Operator Name Role Phone Lupe Moralez Primary Care Provider [phone] Perry Quintero MD Unavailable [phone] Reason for Visit * Reason Onset Date Comments Referral 06/19/2023 Encounter Details Date Type Department Care Team ([facility] st Contact Info) Description 06/19/2023 Telephone [facility] MEDICINE [address] [place] [address] Lupe Moralez FNP [address] [place], [place] [id number] Referral Social History Tobacco Use Types Packs/Day [...] Requesting change in location for PT to [facility] if possible. Original referral 06/06/23 to [facility] * Telephone Encounter - Sandeep Hernandez - 06/19/2023 11:18 AM EST Tc from patients daughter requestingphysical therapy referral to be switch to [facility] due to transportation. documented in this encounter Plan of Treatment Upcoming Encounters Date Type Department Care Team (Late st Contact Info) Description 09/29/2024 2:00 PM EST Medication Management [facility] MEDICINE [address] [place] [address] documented as of this encounter Visit Diagnoses Not on filedocumented in this encounter Additional Health Concerns Assessment Noted Time PHQ-9 Depression Total Score: 5 01/03/20 23 2:27 PM EDT documented as of this encounter Care Teams Day Light Relief Operator Relationship Specialty Start Date End Date Lupe Moralez FNP [address] [place] [address] PCP - General Family Medicine 04/16/22 Peryr Quintero MD [address] [place] [address] Cardiology 06/14/24 documented as of this encounter
--- OUTSIDE RECORDS SUMMARY | 2024-09-27 16:20 | XMS_ITS | Encounter Summary ---
Author Organization [employer] Address [address] [facility] 7[address] [place] [address] Care Team Providers Care Wood Heel Flap Inserter Name Role Phone Lupe Moralez Primary Care Provider [phone] Perry Quintero MD Unavailable [phone] Reason for Visit * Reason Onset Date Comments FYI 12/15/2023 Encounter Details Date Type Department Care Team ([facility] Contact Info) Description 12/15/2023 Telephone [facility] MED & PEDS [address] [place] [address] Lupe Moralez FNP [address] [place] [address] FYI Social History Tobacco Use Types Packs/Day [...] - 12/15/2023 2:27 PM EDT Tc from [facility] with [facility] calling to advise provider pt has been discharged from nursing services with all nursing goals met. documented in this encounter Plan of Treatment Upcoming Encounters Date Type Department Care Team (Late st Contact Info) Description 09/29/2024 2:00 PM EST Medication Management [facility] MEDICINE [address] [place] [address] documented as of this encounter Visit Diagnoses Not on filedocumented in this encounter Additional Health Concerns Assessment Noted Time PHQ-9 Depression Total Score: 5 01/03/20 23 2:27 PM EDT documented as of this encounter Care Teams Wood Heel Flap Inserter Relationship Specialty Start Date End Date Lupe Moralez FNP [address] [place] [address] PCP - General Family Medicine 04/16/22 Perry Quintero MD [address] [place] [address] Cardiology 06/14/24 documented as of this encounter
--- OUTSIDE RECORDS SUMMARY | 2024-09-27 16:20 | XMS_ITS | Encounter Summary ---
Author Organization [employer] Address [address] [facility] [address] [place] [address] Care Team Providers Care Quarry Supervisor Open Pit Name Role Phone Lupe Moralez Primary Care Provider [phone] Perry Quintero MD Unavailable Reason for Visit * Reason Onset Date Comments question 03/02/2024 Encounter Details Date Type Department Care Team ([facility] st Contact Info) Description 03/02/2024 Telephone [facility] MEDICINE [address] [place] [address] Lupe Moralez FNP [address] [place], [place] [phone] question Social History Tobacco Use Types Packs/Day [...] directed to another line to discuss about [facility] locations that are covered by [employer] to [...] it's an insurance thing gave insurance number [id number] documented in this encounter Plan of Treatment Upcoming Encounters Date Type Department Care Team (Late st Contact Info) Description 09/29/2024 2:00 PM EST Medication Management [facility] MEDICINE [address] [place] [id number] documented as of this encounter Visit Diagnoses Not on filedocumented in this encounter Additional Health Concerns Assessment Noted Time PHQ-9 Depression Total Score: 4 02/09/20 10:42 AM EDT documented as of this encounter Care Teams Quarry Supervisor Open Pit Relationship Specialty Start Date End Date Lupe Moralez FNP [address] [place] [address] PCP - General Family Medicine 04/16/22 Perry Quintero MD [address] [place] [address] Cardiology 06/14/24 documented as of this encounter
--- OUTSIDE RECORDS SUMMARY | 2024-09-27 16:20 | XMS_ITS | Encounter Summary ---
Author Organization [employer] Address [address] [facility] [address] [place] [address] Care Team Providers Care Sky Line Yarder Name Role Phone Lupe Moralez Primary Care Provider [phone] Perry Quintero MD Unavailable Encounter Details Date Type Department Care Team ([facility] st Contact Info) Description 11/28/2023 Telephone [facility] MED & PEDS [address] [place] [address] Lupe Moralez FNP [address] [place] [address] Social History Tobacco Use Types Packs/Day Years [...] Description 09/29/2024 2:00 PM EST Medication Management [facility] MEDICINE [address] [place] [address] documented as of this encounter Visit Diagnoses Not on filedocumented in this encounter Additional Health Concerns Assessment Noted Time PHQ-9 Depression Total Score: 5 01/03/20 23 2:27 PM EDT documented as of this encounter Care Teams Sky Line Yarder Relationship Specialty Start Date End Date Lupe Moralez FNP [address] [place] [address] PCP - General Family Medicine 04/16/22 Perry Quintero MD [address] [place] [address] Cardiology 06/14/24 documented as of this encounter
--- OUTSIDE RECORDS SUMMARY | 2024-09-27 16:20 | XMS_ITS | Encounter Summary ---
Author Organization [employer] Address [address] [facility] 7t [place] [address] Care Team Providers Care Buffing And Sueding Machine Operator Name Role Phone Lupe Moralez Primary Care Provider [phone] Perry Quintero MD Unavailable [phone] Reason for Visit * Reason Comments Med Refill Encounter Details Date Type Department Care Team ([facility] st Contact Info) Description 09/21/2024 Refill [facility] MED & PEDS [address] [place] [address] Lupe Moralez FNP [address] [place] [address] Hypothyroidism, unspecified type Social History Tobacco Use [...] AM EST Rx generated and faxed to [facility] with pcp Notes ----- Message from [...] Description 09/29/2024 2:00 PM EST Medication Management [facility] MEDICINE [address] [place] [address] documented as of this encounter Visit Diagnoses Diagnosis Hypothyroidism, unspecified type documented in this encounter Additional Health Concerns Assessment Noted Time PHQ-9 Depression Total Score: 4 02/09/20 24 10:42 AM EDT documented as of this encounter Care Teams Buffing And Sueding Machine Operator Relationship Specialty Start Date End Date Lupe Moralez FNP [address] [place] [address] PCP - General Family Medicine 04/16/22 Perry Quintero MD [address] [place] [address] Cardiology 06/14/24 documented as of this encounter
--- OUTSIDE RECORDS SUMMARY | 2024-09-27 16:20 | XMS_ITS | Encounter Summary ---
Author Organization [employer] Address [address] [facility] [address] [place] [address] Care Team Providers Care Senior Compensation Consultant Name Role Phone Lupe Moralez BE Primary Care Provider [phone] Perry Quintero MD Unavailable [phone] Encounter Details Date Type Department Care Team (Latest Contact Info) Description 09/24/2024 Travel Social History Tobacco Use Types Packs/Day [...] Description 09/29/2024 2:00 PM EST Medication Management [facility] MEDICINE [address] [place] [address] documented as of this encounter Visit Diagnoses Not on filedocumented in this encounter Additional Health Concerns Assessment Noted Time PHQ-9 Depression Total Score: 4 02/09/20 24 10:42 AM EDT documented as of this encounter Care Teams Senior Compensation Consultant Relationship Specialty Start Date End Date Lupe Moralez FNP [address] [place] [address] PCP - General Family Medicine 04/16/22 Perry Quintero MD [address] [place] [address] Cardiology 06/14/24 documented as of this encounter
--- OUTSIDE RECORDS SUMMARY | 2024-09-27 16:20 | XMS_ITS | Encounter Summary ---
Author Organization [employer] Address [address] [place] [address] [address] [place] [address] Care Team Providers Care Drupal Developer Name Role Phone Lupe Moralez BE Primary Care Provider [phone] Perry Quitnero MD Unavailable [phone] Encounter Details Date Type Department Care Team ([facility] st Contact Info) Description 07/24/2022 Orders Only [facility] [address] [place] [address] Aislinn Valle LPN Social History Tobacco Use [...] Susceptible to bactrim, however [place] [facility] [place] d/t HUSEYIN. documented in this encounter Plan of Treatment Upcoming Encounters Date Type Department Care Team (Late st Contact Info) Description 09/29/2024 2:00 PM EST Medication Management [facility] [address] [place] [phone] documented as of this encounter Procedures Procedure [...] EDT 06/03/2023 6:38 PM EDT Comment:UACC Narrative [facility] - 06/05/2023 12:49 PM EDT Urine Culture Report Result Urine Culture < 10,000 cfu/ml Specimen Source: Urine clean catch Yg Reyes MD LAB MICROBIOLOGY - GENERAL ORDER CASIMIRO Final Result Performing Organization Address [facility] de Phone Number [facility] [address] [place] [phone] * Lactic Acid (03/15/2023 6:29 PM EDT) Lactic Acid 1.2 0.5 - 2.0 mmol/L [facility] 03/15/2023 6:29 PM EDT 03/15/2023 6:32 PM EDT [facility] External Provider LAB BLO OD ORDERABLES Final Result Performing Organization Address [facility] de Phone Number [facility] [address] [place] [phone] * Lipase (03/15/2023 3:34 PM EDT) Lipase 22 8 - 78 U/L [facility] 03/15/2023 3:34 PM EDT 03/15/2023 3:41 PM EDT Generic External Data Provider LAB BLOOD ORDERAB LES Final Result [facility] [address] [place] [phone] * (ABNORMAL) Comprehensive Metabolic Panel (03/15/2023 3:34 PM EDT) Sodium 137 135 - 145 mmol/L [facility] Potassium 4.7 3.3 - 5.1 mmol/L [facility] Chloride 102 96 - 108 mmol/L [facility] Carbon Dioxide 23 22 - 29 mmol/L [facility] Anion Gap 17 12 - 20 [facility] Urea Nitrogen (BUN) 32(H) 9 - 16 mg/dL [facility] Creatinine, Serum 1.83(H) 0.5 - 1.4 mg/dL [facility] Creatinine Clr Calc Pharmacy 27.9 [facility] Comment:Provided height and weight: 162.56 cm,92.533 kg.eGFR (calculated from the MDRD study equation) and eCrCl(calculated from the Cockcroft-Gault equation) are based ondifferent parameters and may not yield comparable results.If eCrCl result is absurd, please check patient'sheight/weight. Estimated Glomerular Filt Rate 27 [facility] Comment:NOTE: For -Am erican individuals, multiply the result by 1.210.Chronic Kidney Disease: Estimated GFR < 60 mL/min/1.43j2Wyfmza Kidney Disease: Estimated GFR < 15 mL/min/1.73m2 Glucose 254(H) 60 - 115 mg/dL [facility] Calcium 9.8 8.4 - 10.2 mg/dL [facility] Bilirubin, Total 0.4 0.0 - 1.0 mg/dL [facility] Aspartate Amino Transferase 17 5 - 31 U/L [facility] Alanine Aminotransferase 12 0 - 31 U/L [facility] Total Protein 7.5 6.5 - 8.0 g/dL [facility] Albumin Level 4.3 3.5 - 5.0 g/dL [facility] Alkaline Phosphatase 72 39 - 117 U/L [facility] 03/15/2023 3:34 PM EDT 03/15/2023 3:41 PM EDT [facility] External Provider LAB BLO OD ORDERABLES Final Result Performing Organization Address [facility] Co de Phone Number [facility] [address] [place] [address] [phone] * (ABNORMAL) Lactic Acid (03/15/2023 3:34 PM EDT) Lactic Acid 2.6(HH) 0.5 - 2.0 mmol/L [facility] Comment:Critical value for t est(s):LACTA Results called to anny back by:TAE Person calling:EDWARD Date:03/15/23Time:1610 03/15/2023 3:34 PM EDT 03/15/2023 3:41 PM EDT [facility] External Provider LAB BLO OD ORDERABLES Final Result Performing Organization Address [facility] de Phone Number [facility] [address] [place] [address] [phone] * (ABNORMAL) Urinalysis, Complete, with Reflex to Culture (03/15/2023 3:34 PM EDT) Color Urine Yellow [facility] Appearance Urine Clear [facility] PH 7.0 5.0 - 9.0 [facility] Glucose Urine UA >=1000(A) Negative mg/dL [facility] Urine Blood Large (3+)(A) Negative [facility] Specific [place] - Urine 1.020 1.005 - 1.025 [facility] Urine Protein Negative Neg-Trace mg/dL [facility] Urine Ketones Negative Negative mg/dL [facility] Nitrite Urine Negative Negative [facility] Leukocyte Esterase Urine Negative Negative [facility] RBC Urine >20(A) 0 - 2 /HPF [facility] Urine WBC 0-5 0 - 5 /HPF [facility] Urine Squamous Epithelial Cell 0-2 0 - 2 /HPF [facility] Urine Bacteria None Seen None Seen [facility] Hyaline Casts, Urine 0-2 0 - 2 /LPF [facility] 03/15/2023 3:34 PM EDT 03/15/2023 3:41 PM EDT Narrative [facility] - 03/15/2023 4:19 PM EDT [id number], Clean Catch us [facility] External Provider LAB URI NE ORDERABLES Final Result [facility] [address] [place] [phone] * (ABNORMAL) CBC auto differential (03/15/2023 3:34 PM EDT) White Blood Count 7.2 4.8 - 10.8 X10*3/uL [facility] Red Blood Count 3.64(L) 4.20 - 5.50 X10*6/uL [facility] Hemoglobin 11.7(L) 12.0 - 16.0 g/dl [facility] Hematocrit 35.1(L) 37.0 - 47.0 % [facility] Mean Corpuscular Volume 96.4 80.0 - 98.0 fL [facility] Mean Corpuscular Hemoglobin 32.1 27.0 - 33.0 pg [facility] Mean Corpuscular HGB Conc 33.3 31.0 - 35.0 g/dl [facility] Red Cell Distribution Width 11.9 11.0 - 16.0 % [facility] Platelet Count 246 160 - 400 X10*3/uL [facility] Mean Platelet Volume 10.3 9.4 - 12.3 fL [facility] Neutrophils Percent Auto 66.7 45 - 73 % [facility] Imm Gran Pct Auto 0.4 0.0 - 0.4 % [facility] Lymphocytes Percent Auto 22.0 20 - 40 % [facility] Monocytes Percent Auto 6.4 2 - 11 % [facility] Eosinophils Percent Auto 4.1(H) 0 - 4 % [facility] Basophils Percent Auto 0.4 0 - 2 % [facility] NRBC Pct Auto 0.0 0.0 - 0.2 /100WBC [facility] Neutrophils Absolute Auto 4.8 2.0 - 8.3 x10*3/uL [facility] Imm Gran Abs Auto 0.03 0.00 - 0.03 X10*3/uL [facility] Lymphocytes Absolute Auto 1.6 1.2 - 4.9 X10*3/uL [facility] Monocytes Absolute Auto 0.5 0.1 - 1.2 X10*3/uL [facility] Eosinophils Absolute Auto 0.3 0.0 - 0.4 X10*3/uL [facility] Basophils Absolute Auto 0.0 0.0 - 0.2 X10*3/uL [facility] NRBC Abs Auto 0.000 0.0 - 0.012 X10*3/uL [facility] 03/15/2023 3:34 PM EDT 03/15/2023 3:41 PM EDT [facility] External Provider LAB BLO OD ORDERABLES Final Result [facility] [address] [place] [phone] * Culture, Urine, Routine (03/11/2023 4:02 PM EDT) Urine specimen obtained by clean catch procedure / Unknown 03/11/2023 4:02 PM EDT 03/11/2023 6:59 PM EDT Comment:UACC Narrative [facility] - 03/13/2023 8:43 AM EDT Escherichia coli Quant 50,000 to 100,000 cfu/mL Escherichia coli: Ampicillin 8(S) Escherichia coli: Ceftriaxone <=0.25(S) Escherichia coli: Gentamicin <=1(S) Escherichia coli: Levofloxacin >=8(R) Escherichia coli: Nitrofurantoin <=16(S) Escherichia coli: Trimethoprim/Sulfamethoxazole <=20(S) Specimen Source: Urine clean catch [facility] LAB MICROBIOLOGY - GENERAL ORDER CASIMIRO Final Result Performing Organization Address [facility] de Phone Number [facility] [address] [place] [phone] * Calcium (02/10/2023 11:24 AM EDT) Calcium 9.8 8.4 - 10.2 mg/dL [facility] 02/10/2023 11:2 4 AM EDT 02/10/2023 11:24 AM EDT [facility] External Provider LAB BLO OD ORDERABLES Final Result Performing Organization Address [facility] Phone Number [facility] [address] [place] [address] [phone] * Creatinine, Serum (02/10/2023 11:24 AM EDT) Creatinine, Serum 1.13 0.5 - 1.4 mg/dL [facility] Estimated Glomerular Filt Rate 47 [facility] Comment:NOTE: For -Am erican individuals, multiply the result by 1.210.Chronic Kidney Disease: Estimated GFR < 60 mL/min/[id number] Kidney Disease: Estimated GFR < 15 mL/min/1.73m2 02/10/2023 11:2 4 AM EDT 02/10/2023 11:24 AM EDT [facility] External Provider LAB BLO OD ORDERABLES Final Result Performing Organization Address [facility] de Phone Number [facility] [address] [place] [phone] * (ABNORMAL) BUN (Blood Urea Nitrogen) (02/10/2023 11:24 AM EDT) Urea Nitrogen (BUN) 24(H) 9 - 16 mg/dL [facility] 02/10/2023 11:2 4 AM EDT 02/10/2023 11:24 AM EDT [facility] External Provider LAB BLO OD ORDERABLES Final Result Performing Organization Address [facility] Co de Phone Number [facility] [address] [place] [phone] * Electrolyte Panel (02/10/2023 11:24 AM EDT) Pathologist [facility] Sodium 141 135 - 145 mmol/L [facility] Potassium 4.0 3.3 - 5.1 mmol/L [facility] Chloride 105 96 - 108 mmol/L [facility] Carbon Dioxide 25 22 - 29 mmol/L [facility] Anion Gap 15 12 - 20 [facility] 02/10/2023 11:2 4 AM EDT 02/10/2023 11:24 AM EDT [facility] External Provider LAB BLO OD ORDERABLES Final Result Performing Organization Address [facility] de Phone Number [facility] [address] [place] [phone] * (ABNORMAL) Urinalysis, Complete, with Reflex to Culture (02/02/2023 3:16 AM EDT) Color Urine Yellow [facility] Appearance Urine Clear [facility] PH 5.5 5.0 - 9.0 [facility] Glucose Urine UA >=1000(A) Negative mg/dL [facility] Urine Blood Negative Negative [facility] Specific [place] - Urine 1.025 1.005 - 1.025 [facility] Urine Protein Negative Neg-Trace mg/dL [facility] Urine Ketones Negative Negative mg/dL [facility] Nitrite Urine Negative Negative [facility] Leukocyte Esterase Urine Negative Negative [facility] RBC Urine 3-5(A) 0 - 2 /HPF [facility] Urine WBC 0-5 0 - 5 /HPF [facility] Urine Squamous Epithelial Cell 0-2 0 - 2 /HPF [facility] Urine Bacteria None Seen None Seen [facility] Hyaline Casts, Urine 0-2 0 - 2 /LPF [facility] 02/02/2023 3:16 AM EDT 02/02/2023 3:18 AM EDT Narrative [facility] - 02/02/2023 3:28 AM EDT [id number], Clean Catch [facility] External Provider LAB URI NE ORDERABLES Final Result Performing Organization Address [facility]/ZIP Co de Phone Number [facility] [address] [place] [address] [phone] * Sed Rate by Modified Heavenly (02/02/2023 2:37 AM EDT) Erythrocyte Sedimentation Rate 7 0 - 20 MM/HR [facility] Comment:Patients with polycy themia and many hemoglobin abnormalitiesmay have depressed sed rates whereas patients with anemiamay have elevated sed rates. 02/02/2023 2:37 AM EDT 02/02/2023 2:43 AM EDT [facility] External Provider LAB BLO OD ORDERABLES Final Result Performing Organization Address City/[facility]/ZIP Co de Phone Number [facility] [address] [place] [address] [phone] * TSH W/Reflex to FT4 (02/02/2023 2:37 AM EDT) TSH reflex Free T4 2.61 0.32 - 4.0 uIU/mL [facility] 02/02/2023 2:37 AM EDT 02/02/2023 2:43 AM EDT [facility] External Provider LAB BLO OD ORDERABLES Final Result Performing Organization Address [facility] Co de Phone Number [facility] [address] [place] [phone] * B Type Natriuretic Peptide (BNP) (02/02/2023 2:37 AM EDT) [facility] B Type Natriuretic Peptide 72 <100 pg/mL [facility] Comment:For those patients w ho are being treated with Natrecor(nesiritide, recombinant BNP), BNP testing should beperformed at least two hours post treatment in order toensure that only endogenous levels of BNP are detected. 02/02/2023 2:37 AM EDT 02/02/2023 2:43 AM EDT [facility] External Provider LAB BLO OD ORDERABLES Final Result Performing Organization Address [facility] de Phone Number [facility] [address] [place] [phone] * High Sensitivity Troponin I (02/02/2023 2:37 AM EDT) [facility] TROPONIN I HIGH SENSITIVITY 3.7 <3.5 - 17.0 ng/L [facility] Comment:The Tony high sens itivity Troponin-I results should beused in conjunction with other diagnostic information suchas ECG, clinical observations and information, and patientsymptoms to aid in the diagnosis of ID. 02/02/2023 2:37 AM EDT 02/02/2023 2:43 AM EDT [facility] External Provider LAB BLO OD ORDERABLES Final Result Performing Organization Address [facility] Co de Phone Number [facility] [address] [place] [phone] * (ABNORMAL) Basic Metabolic Panel (02/02/2023 2:37 AM EDT) Sodium 139 135 - 145 mmol/L [facility] Comment:Lipemic Specimen Potassium 4.3 3.3 - 5.1 mmol/L [facility] Comment:Lipemic Specimen Chloride 100 96 - 108 mmol/L [facility] Comment:Lipemic Specimen Carbon Dioxide 25 22 - 29 mmol/L [facility] Anion Gap 18 12 - 20 [facility] Urea Nitrogen (BUN) 38(H) 9 - 16 mg/dL [facility] Comment:Lipemic Specimen Creatinine, Serum 1.58(H) 0.5 - 1.4 mg/dL [facility] Comment:Lipemic Specimen Creatinine Clr Calc Pharmacy 32.4 [facility] Comment:Provided height and weight: 162.56 cm,92.986 kg.eGFR (calculated from the MDRD study equation) and eCrCl(calculated from the Cockcroft-Gault equation) are based ondifferent parameters and may not yield comparable results.If eCrCl result is absurd, please check patient'sheight/weight. Estimated Glomerular Filt Rate 32 [facility] Comment:NOTE: For -Am erican individuals, multiply the result by 1.210.Chronic Kidney Disease: Estimated GFR < 60 mL/min/1.05m0Obctrp Kidney Disease: Estimated GFR < 15 mL/min/1.73m2 Glucose 230(H) 60 - 115 mg/dL [facility] Comment:Lipemic Specimen Calcium 10.5(H) 8.4 - 10.2 mg/dL [facility] Comment:Lipemic Specimen 02/02/2023 2:37 AM EDT 02/02/2023 2:43 AM EDT us [facility] External Provider LAB BLO OD ORDERABLES Final Result [facility] [address] [place] [phone] * (ABNORMAL) CBC auto differential (02/02/2023 2:37 AM EDT) White Blood Count 9.2 4.8 - 10.8 X10*3/uL [facility] Red Blood Count 3.86(L) 4.20 - 5.50 X10*6/uL [facility] Hemoglobin 12.9 12.0 - 16.0 g/dl [facility] Hematocrit 37.5 37.0 - 47.0 % [facility] Mean Corpuscular Volume 97.2 80.0 - 98.0 fL [facility] Mean Corpuscular Hemoglobin 33.4(H) 27.0 - 33.0 pg [facility] Mean Corpuscular HGB Conc 34.4 31.0 - 35.0 g/dl [facility] Red Cell Distribution Width 12.6 11.0 - 16.0 % [facility] Platelet Count 281 160 - 400 X10*3/uL [facility] Mean Platelet Volume 10.2 9.4 - 12.3 fL [facility] Neutrophils Percent Auto 58.2 45 - 73 % [facility] Imm Gran Pct Auto 1.0(H) 0.0 - 0.4 % [facility] Lymphocytes Percent Auto 32.1 20 - 40 % [facility] Monocytes Percent Auto 6.3 2 - 11 % [facility] Eosinophils Percent Auto 2.1 0 - 4 % [facility] Basophils Percent Auto 0.3 0 - 2 % [facility] NRBC Pct Auto 0.0 0.0 - 0.2 /100WBC [facility] Neutrophils Absolute Auto 5.4 2.0 - 8.3 x10*3/uL [facility] Imm Gran Abs Auto 0.09(H) 0.00 - 0.03 X10*3/uL [facility] Lymphocytes Absolute Auto 3.0 1.2 - 4.9 X10*3/uL [facility] Monocytes Absolute Auto 0.6 0.1 - 1.2 X10*3/uL [facility] Eosinophils Absolute Auto 0.2 0.0 - 0.4 X10*3/uL [facility] Basophils Absolute Auto 0.0 0.0 - 0.2 X10*3/uL [facility] NRBC Abs Auto 0.000 0.0 - 0.012 X10*3/uL [facility] 02/02/2023 2:37 AM EDT 02/02/2023 2:43 AM EDT [facility] External Provider LAB BLO OD ORDERABLES Final Result Performing Organization Address [facility] Co de Phone Number [facility] [address] [place] [phone] * (ABNORMAL) B Type Natriuretic Peptide (BNP) (01/23/2023 5:48 PM EDT) Pathologist [facility] B Type Natriuretic Peptide 119(H) <100 pg/mL [facility] Comment:For those patients w ho are being treated with Natrecor(nesiritide, recombinant BNP), BNP testing should beperformed at least two hours post treatment in order toensure that only endogenous levels of BNP are detected. 01/23/2023 5:48 PM EDT 01/23/2023 9:15 PM EDT [facility] External Provider LAB BLO OD ORDERABLES Final Result Performing Organization Address [facility] Co de Phone Number [facility] [address] [place] [address] [phone] * (ABNORMAL) Basic Metabolic Panel (01/23/2023 5:48 PM EDT) Sodium 138 135 - 145 mmol/L [facility] Potassium 4.2 3.3 - 5.1 mmol/L [facility] Chloride 105 96 - 108 mmol/L [facility] Carbon Dioxide 23 22 - 29 mmol/L [facility] Anion Gap 14 12 - 20 [facility] Urea Nitrogen (BUN) 22(H) 9 - 16 mg/dL [facility] Creatinine, Serum 0.99 0.5 - 1.4 mg/dL [facility] Creatinine Clr Calc Pharmacy 50.3 [facility] Comment:Provided height and weight: 160.02 cm,91.626 kg.eGFR (calculated from the MDRD study equation) and eCrCl(calculated from the Cockcroft-Gault equation) are based ondifferent parameters and may not yield comparable results.If eCrCl result is absurd, please check patient'sheight/weight. Estimated Glomerular Filt Rate 54 [facility] Comment:NOTE: For -Am erican individuals, multiply the result by 1.210.Chronic Kidney Disease: Estimated GFR < 60 mL/min/1.52t5Wpvwjk Kidney Disease: Estimated GFR < 15 mL/min/1.73m2 Glucose 119(H) 60 - 115 mg/dL [facility] Calcium 10.2 8.4 - 10.2 mg/dL [facility] 01/23/2023 5:48 PM EDT 01/23/2023 6:01 PM EDT [facility] External Provider LAB BLO OD ORDERABLES Final Result Performing Organization Address [facility] de Phone Number [facility] [address] [place] [phone] * Hepatic Function Panel (01/23/2023 5:48 PM EDT) Bilirubin, Total 0.6 0.0 - 1.0 mg/dL [facility] Bilirubin, Direct 0.2 0.0 - 0.5 mg/dL [facility] Aspartate Amino Transferase 12 5 - 31 U/L [facility] Alanine Aminotransferase 8 0 - 31 U/L [facility] Total Protein 7.2 6.5 - 8.0 g/dL [facility] Albumin Level 4.1 3.5 - 5.0 g/dL [facility] Alkaline Phosphatase 72 39 - 117 U/L [facility] 01/23/2023 5:48 PM EDT 01/23/2023 6:01 PM EDT [facility] External Provider LAB BLO OD ORDERABLES Final Result Performing Organization Address City/[facility]/ZIP Co de Phone Number [facility] [address] [place] [phone] * High Sensitivity Troponin I (01/23/2023 5:48 PM EDT) TROPONIN I HIGH SENSITIVITY <2.7 <3.5 - 17.0 ng/L [facility] Comment:The Tony high sens itivity Troponin-I results should beused in conjunction with other diagnostic information suchas ECG, clinical observations and information, and patientsymptoms to aid in the diagnosis of ID. 01/23/2023 5:48 PM EDT 01/23/2023 6:01 PM EDT [facility] External Provider LAB BLO OD ORDERABLES Final Result Performing Organization Address [facility] Number [facility] [address] [place] [address] [phone] * (ABNORMAL) APTT (01/23/2023 5:48 PM EDT) Partial Thromboplastin Time 24.9(L) 26.0 - 36.4 SEC [facility] 01/23/2023 5:48 PM EDT 01/23/2023 6:01 PM EDT [facility] External Provider LAB BLO OD ORDERABLES Final Result Performing Organization Address [facility] de Phone Number [facility] [address] [place] [address] [phone] * Prothrombin Time-INR (01/23/2023 5:48 PM EDT) Prothrombin Time 10.0 10.0 - 13.1 SEC [facility] INTERNATIONAL NORM RATIO 0.9 0.9 - 1.1 [facility] Comment:INTERNATIONAL NORMAL IZED RATIO (INR) [...] PM EDT 01/23/2023 6:01 PM EDT us [facility] External Provider LAB BLO OD ORDERABLES Final Result [facility] [address] [place] [phone] * (ABNORMAL) CBC auto differential (01/23/2023 5:48 PM EDT) White Blood Count 7.5 4.8 - 10.8 X10*3/uL [facility] Red Blood Count 3.42(L) 4.20 - 5.50 X10*6/uL [facility] Hemoglobin 11.2(L) 12.0 - 16.0 g/dl [facility] Hematocrit 33.6(L) 37.0 - 47.0 % [facility] Mean Corpuscular Volume 98.2(H) 80.0 - 98.0 fL [facility] Mean Corpuscular Hemoglobin 32.7 27.0 - 33.0 pg [facility] Mean Corpuscular HGB Conc 33.3 31.0 - 35.0 g/dl [facility] Red Cell Distribution Width 12.5 11.0 - 16.0 % [facility] Platelet Count 238 160 - 400 X10*3/uL [facility] Mean Platelet Volume 10.3 9.4 - 12.3 fL [facility] Neutrophils Percent Auto 56.7 45 - 73 % [facility] Imm Gran Pct Auto 0.4 0.0 - 0.4 % [facility] Lymphocytes Percent Auto 26.0 20 - 40 % [facility] Monocytes Percent Auto 9.9 2 - 11 % [facility] Eosinophils Percent Auto 6.3(H) 0 - 4 % [facility] Basophils Percent Auto 0.7 0 - 2 % [facility] NRBC Pct Auto 0.0 0.0 - 0.2 /100WBC [facility] Neutrophils Absolute Auto 4.2 2.0 - 8.3 x10*3/uL [facility] Imm Gran Abs Auto 0.03 0.00 - 0.03 X10*3/uL [facility] Lymphocytes Absolute Auto 1.9 1.2 - 4.9 X10*3/uL [facility] Monocytes Absolute Auto 0.7 0.1 - 1.2 X10*3/uL [facility] Eosinophils Absolute Auto 0.5(H) 0.0 - 0.4 X10*3/uL [facility] Basophils Absolute Auto 0.1 0.0 - 0.2 X10*3/uL [facility] NRBC Abs Auto 0.000 0.0 - 0.012 X10*3/uL [facility] 01/23/2023 5:48 PM EDT 01/23/2023 6:01 PM EDT [facility] External Provider LAB BLO OD ORDERABLES Final Result Performing Organization Address City/State/[facility] Co de Phone Number [facility] [address] [place] [phone] * B Type Natriuretic Peptide (BNP) (12/18/2022 10:20 AM EDT) B Type Natriuretic Peptide 95 <100 pg/mL [facility] Comment:For those patients w ho are being treated with Natrecor(nesiritide, recombinant BNP), BNP testing should beperformed at least two hours post treatment in order toensure that only endogenous levels of BNP are detected. 12/18/2022 10:2 0 AM EDT 12/18/2022 10:20 AM EDT [facility] External Provider LAB BLO OD ORDERABLES Final Result [facility] [address] [place] [address] [phone] * (ABNORMAL) APTT (12/18/2022 10:20 AM EDT) [facility] Partial Thromboplastin Time 24.7(L) 26.0 - 36.4 SEC [facility] 12/18/2022 10:2 0 AM EDT 12/18/2022 10:20 AM EDT [facility] External Provider LAB BLO OD ORDERABLES Final Result Performing Organization Address [facility] Co de Phone Number [facility] [address] [place] [address] [phone] * (ABNORMAL) CBC auto differential (12/18/2022 10:20 AM EDT) [facility] White Blood Count 9.0 4.8 - 10.8 X10*3/uL [facility] Red Blood Count 3.63(L) 4.20 - 5.50 X10*6/uL [facility] Hemoglobin 11.8(L) 12.0 - 16.0 g/dl [facility] Hematocrit 35.4(L) 37.0 - 47.0 % [facility] Mean Corpuscular Volume 97.5 80.0 - 98.0 fL [facility] Mean Corpuscular Hemoglobin 32.5 27.0 - 33.0 pg [facility] Mean Corpuscular HGB Conc 33.3 31.0 - 35.0 g/dl [facility] Red Cell Distribution Width 12.4 11.0 - 16.0 % [facility] Platelet Count 221 160 - 400 X10*3/uL [facility] Mean Platelet Volume 10.6 9.4 - 12.3 fL [facility] Neutrophils Percent Auto 73.6(H) 45 - 73 % [facility] Imm Gran Pct Auto 0.2 0.0 - 0.4 % [facility] Lymphocytes Percent Auto 17.1(L) 20 - 40 % [facility] Monocytes Percent Auto 6.4 2 - 11 % [facility] Eosinophils Percent Auto 2.1 0 - 4 % [facility] Basophils Percent Auto 0.6 0 - 2 % [facility] NRBC Pct Auto 0.0 0.0 - 0.2 /100WBC [facility] Neutrophils Absolute Auto 6.7 2.0 - 8.3 x10*3/uL [facility] Imm Gran Abs Auto 0.02 0.00 - 0.03 X10*3/uL [facility] Lymphocytes Absolute Auto 1.6 1.2 - 4.9 X10*3/uL [facility] Monocytes Absolute Auto 0.6 0.1 - 1.2 X10*3/uL [facility] Eosinophils Absolute Auto 0.2 0.0 - 0.4 X10*3/uL [facility] Basophils Absolute Auto 0.1 0.0 - 0.2 X10*3/uL [facility] NRBC Abs Auto 0.000 0.0 - 0.012 X10*3/uL [facility] 12/18/2022 10:2 0 AM EDT 12/18/2022 10:20 AM EDT us [facility] External Provider LAB BLO OD ORDERABLES Final Result [facility] [address] [place] [phone] * B Type Natriuretic Peptide (BNP) (11/01/2022 9:29 AM EDT) B Type Natriuretic Peptide 97 <100 pg/mL [facility] Comment:For those patients w ho are being treated with Natrecor(nesiritide, recombinant BNP), BNP testing should beperformed at least two hours post treatment in order toensure that only endogenous levels of BNP are detected. 11/01/2022 9:29 AM EDT 11/01/2022 9:29 AM EDT [facility] External Provider LAB BLO OD ORDERABLES Final Result Performing Organization Address City/[facility] Hospital/ZIP Co de Phone Number [facility] [address] [place] [address] [phone] * Lipid Panel, Standard (11/01/2022 9:29 AM EDT) Triglycerides 101 mg/dL [facility] Comment:Desirable Triglyceri de: less than 150 mg/dLBorderline High Triglyceride 150-199 mg/dLHigh Triglyceride: 200-499 mg/dLVery High Triglyceride: greater than or equal to 5OO mg/dL Cholesterol 128 mg/dL [facility] Comment:Desirable Cholestero l: less than 200 mg/dLBorderline High Cholesterol: 200-239 mg/dLHigh Cholesterol: greater than 239 mg/dL LDL Cholesterol Calculated 68 mg/dl [facility] Comment:Desirable LDL: less than 100 mg/dLNear Optimal/Above Optimal LDL: 110- 129 mg/dLBorderline High LDL: 130-159 mg/dLHigh LDL: 160-189 mg/dLVery High LDL: greater than or equal to 190 mg/dL HDL Cholesterol 40 mg/dL [facility] Comment:Desirable HDL: great er than 40 mg/dL Note: This HDL assay may give artificially low results in patients with liver disease. 11/01/2022 9:29 AM EDT 11/01/2022 9:29 AM EDT [facility] External Provider LAB BLO OD ORDERABLES Final Result Performing Organization Address City/[facility] Hospital/ZIP Co de Phone Number [facility] [address] [place] [address] [phone] * ALT (11/01/2022 9:29 AM EDT) Alanine Aminotransferase 9 0 - 31 U/L [facility] 11/01/2022 9:29 AM EDT 11/01/2022 9:29 AM EDT [facility] External Provider LAB BLO OD ORDERABLES Final Result Performing Organization Address City/[facility]/ZIP Co de Phone Number [facility] [address] [place] [phone] * AST (11/01/2022 9:29 AM EDT) Aspartate Amino Transferase 12 5 - 31 U/L [facility] 11/01/2022 9:29 AM EDT 11/01/2022 9:29 AM EDT [facility] External Provider LAB BLO OD ORDERABLES Final Result Performing Organization Address [facility] de Phone Number [facility] [address] [place] [phone] * (ABNORMAL) Basic Metabolic Panel (11/01/2022 9:29 AM EDT) Sodium 142 135 - 145 mmol/L [facility] Potassium 4.5 3.3 - 5.1 mmol/L [facility] Chloride 105 96 - 108 mmol/L [facility] Carbon Dioxide 30(H) 22 - 29 mmol/L [facility] Anion Gap 12 12 - 20 [facility] Urea Nitrogen (BUN) 30(H) 9 - 16 mg/dL [facility] Creatinine, Serum 1.18 0.5 - 1.4 mg/dL [facility] Estimated Glomerular Filt Rate 44 [facility] Comment:NOTE: For -Am erican individuals, multiply the result by 1.210.Chronic Kidney Disease: Estimated GFR < 60 mL/min/1.51p0Hgcejs Kidney Disease: Estimated GFR < 15 mL/min/1.73m2 Glucose 105 60 - 115 mg/dL [facility] Calcium 9.7 8.4 - 10.2 mg/dL [facility] 11/01/2022 9:29 AM EDT 11/01/2022 9:29 AM EDT [facility] External Provider LAB BLO OD ORDERABLES Final Result [facility] [address] [place] [address] [phone] documented in this encounter Visit Diagnoses Not on filedocumented in this encounter Care Teams Drupal Developer Relationship Specialty Start Date End Date Lupe Moralez FNP [address] [place] [address] PCP - General Family Medicine 04/16/22 Perry Quintero MD [address] [place] [phone] Cardiology 06/14/24 documented as of this encounter
--- OUTSIDE RECORDS SUMMARY | 2024-09-27 16:20 | XMS_ITS | Encounter Summary ---
Author Organization [employer] Address [address] [facility] [address] [place] [address] Care Team Providers Care Consulting Sales Manager Name Role Phone Lupe Moralez Primary Care Provider [phone] ePrry Quintero MD Unavailable [phone] Reason for Visit * Reason Comments Med Refill Encounter Details Date Type Department Care Team ([facility] st Contact Info) Description 05/31/2024 Refill [facility] [address] [place] [address] Lupe Moralez FNP [address] [place], [place] [phone] Gastroesophageal reflux disease, unspecified whether esophagitis present [...] Description 09/29/2024 2:00 PM EST Medication Management [facility] [address] [place] [address] documented as of this encounter Visit Diagnoses Diagnosis Gastroesophageal reflux disease, unspecified whether esophagitis present documented in this encounter Additional Health Concerns Assessment Noted Time PHQ-9 Depression Total Score: 4 02/09/20 24 10:42 AM EDT documented as of this encounter Care Teams Consulting Sales Manager Relationship Specialty Start Date End Date Lupe Moralez FNP [address] [place] [address] PCP - General Family Medicine 04/16/22 Perry Quintero MD [address] [place] [address] Cardiology 06/14/24 documented as of this encounter
--- OUTSIDE RECORDS SUMMARY | 2024-09-27 16:20 | XMS_ITS | Encounter Summary ---
Author Organization [employer] Address [address] [facility] [address] [place] [address] Care Team Providers Care Fundraising Consultant Name Role Phone Lupe Moralez Primary Care Provider [phone] Perry Quintero MD Unavailable [phone] Encounter Details Date Type Department Care Team (Latest Contact Info) Description 09/24/2024 1:45 PM EST Office Visit [facility] [address] [place] [address] Lupe Moralez FNP [address] [place] [address] Heart failure with reduced ejection fraction (CMS/HCC) (Primary Dx); Cervical paraspinal muscle spasm; Dietary counseling; Exercise counseling; Osteoarthritis of first metatarsophalangeal (MTP) joint of right foot; Type 2 diabetes mellitus without complication, without long-term current use of insulin (CMS/HCC); Anemia, unspecified type Social History Tobacco Use [...] Mass Index 34.56 09/24/2024 1:50 PM EST documented in this encounter Progress Notes * Lupe Moralez, BE - 09/24/2024 1:45 PM EST Subjective: Charleen Hines is an 79 y.o. female w/ PMH HFrEF w/ ICD implant, T2DM, hypothyroid, VAMSI on CPAP, CAD, cardiomyopathy, severe aortic stenosis s/p TAVR, right breast CA s/p mastectomy, GERD, CKD,who presents to the office with daughter for a short-term follow-up. Interim History: Last PCP visit on 09/17/2024. HPI from last visit: Recently returned from a trip to [place] where she was hospitalized for significant anemia, with initial hemoglobin 4.9. Daughter reports that patient received 6 units of blood transfusion. Improved to hemoglobin of 10 approximately 4-5 days later upon discharge. Anemia: She experienced symptoms of fatigue, pallor, dizziness prior to ED visit. She also reported that she experienced 2 rounds of diarrhea with possible dark maroon/blood-tinged stool. Denies shortness of breath, overt bleed, other associated symptoms. Last colonoscopy approximately 2021 in [place] per daughter. Today: Anemia: She was referred urgently to heme/onc and GI for for consult and workup of anemia with concern for possible GI bleed. She was seen by heme-onc at [facility]- Dr. Cobb on 09/21/2024. Suspected possible GI bleed as she has iron deficiency anemia. Hemoglobin was stable. Plan to follow-up in 1 month. She continues on Eliquis and Plavix due to cardiac history and defibrillator. ED precautions have been reviewed. No further stool abnormalities. Reports upcoming GI consult scheduled at [facility] on 10/07/2024. Right foot pain: She recently completed treatment for gout with prednisone with significant symptomimprovement. X-ray of right foot demonstrated osteoarthrosis without acute fracture or dislocation.Also demonstrated hallux valgus deformity of the first MTP joint. Followed previously with podiatry. Would be a good candidate for diabetic shoes. DME request placed. Review of Systems Constitutional: Negative for chills and fever. Respiratory: Negative for cough and wheezing. Cardiovascular: Negative for chest pain and palpitations. Gastrointestinal: Negative for vomiting. Musculoskeletal: Positive for arthralgias and gait problem. Visit Vitals BP 110/54 (BP Location: Left arm, Patient Position: Sitting, BP Cuff Size: Large adult) Pulse 77 Temp 97.6 ??F (36.4 ??C) (Oral) Resp 18 Ht 5' 3 (1.6 m) Wt 195 lb 2 oz (88.5 kg) LMP (LMP Unknown) SpO2 98% BMI 34.56 kg/m?? OB Status Postmenopausal Smoking Status Never BSA 1.98 m?? Physical Exam Constitutional: Appearance: Normal appearance. HENT: Head: Atraumatic. Right Ear: External ear normal. Left Ear: External ear normal. Cardiovascular: Rate and Rhythm: Normal rate. Pulmonary: Effort: Pulmonary effort is normal. Breath sounds: Normal breath sounds. Musculoskeletal: Comments: Ambulating with rolling walker. Neurological: Mental Status: She is alert and oriented to person, place, and time. Psychiatric: Mood and Affect: Mood normal. Behavior: Behavior normal. Problem List Items Addressed This Visit Circulatory Heart failure with reduced ejection fraction (CMS/HCC) - Primary Overview Hx CAD s/p prior RCA PCI, [...] 10-15% on 11/21/23 11/25/23: ICD Implant at [facility] with Dr. Jacob 12/23/23: EF improved to [...] May 2024: Needs abx prophylaxis with procedures Current Assessment & Plan Blood pressure well-controlled Follow up with Cards as scheduled Follow up/ED precautions reviewed DME request for 10 in 1 pillow placed September 2024 Relevant Medications Blood Pressure kit Musculoskeletal Osteoarthritis of first metatarsophalangeal (MTP) joint of right foot Overview Right foot x-ray September 2024: Degenerative changes in the first metatarsophalangeal joint and theinterphalangeal joints of the toes. There is a mild lateral deviation of the first metatarsophalangeal joint. Current Assessment & Plan Previously followed with podiatry. Will let us know if interested in new referral. Encouraged comfortable footwear and good foot hygiene Cervical paraspinal muscle spasm Endocrine/Metabolic Type 2 diabetes mellitus without complication (CMS/[facility]) Current Assessment & Plan Lab Results Component Value Date HGBA1C 6.9 (A) 09/17/2024 -A1c & lipids well controlled -Eye Exam: established with ophthalmology -Dental: referral to [facility] Dental 09/05/23 -Monofilament: abnormal on 04/16/22 and pt referred to podiatry. Last foot eval 09/17/2024. DME request for diabetic shoes sent . -ACEi/ARB: yes -Statin: yes -Cont metformin 500mg [...] 06/14/2024 LDLCHOLCAL 54 12/23/2023 LDLCHOLCAL 68 11/01/2022 Hematologic Anemia Overview Lab Results Component Value Date HGB 10.7 (L) 09/23/2024 HGB 9.8 (L) 09/16/2024 HGB 9.7 (L) 06/14/2024 HGB 11.6 (L) 09/17/2023 HGB 11.7 (L) 03/15/2023 - Ferritin and Vit D wnl Sep 2024 Current Assessment & Plan -Hemoglobin stabilized/mild increase over the past week Etiology unknown - GIB in differential. Risk factors: AC Seen in [place] on 09/09/24 and had Hgb of 4.9. Recieved transfusion of about 6 units of blood on09/11/24. Records requested from [place], available lab work reviewed and sent to scan. Consult with [facility] Heme/Onc 09/21/2024, scheduled with [facility] GI 10/07/2024 Shared decision making to start p.o. iron supplement. Follow-up with any side effects. ED precautions reviewed Other Visit Diagnoses Dietary counseling Exercise counseling Follow up: 6 weeks for anemia, sooner as needed Diabetic Statement I am treating this patient under a comprehensive plan of care for her diabetes. This patient needs special shoes (depth or custom-molded shoes) because of her diabetes. Date late seen for diabetic exam: 09/17/24 I certify that this patient has diabetes mellitus. I am the pt's PCP but as a nurse practitiioner in the [facility], an MD or DO is required to co- sign on a diabetic shoe prescription. As such, the physician below agrees with the plan of care. Statement of Certifying Physician for Therapeutic Shoes This patient has one or more of the following conditions: - history of partial or complete amputation of the foot - history of previous foot ulceration. - history of pre-ulcerative callus. - peripheral neuropathy with evidence of callus formation. - foot deformity - poor circulation. Diabetic shoes are medically necessary for this patient. / documented in this encounter Miscellaneous Notes * Assessment & Plan Note - BE Chavez - 09/26/2024 1:37 PM ESTAssociated Problem(s): Anemia -Hemoglobin stabilized/mild increase over the past week Etiology unknown - GIB in differential. Risk factors: AC Seen in [place] on 09/09/24 and had Hgb of 4.9. Recieved transfusion of about 6 units of blood on09/11/24. Records requested from [place], available lab work reviewed and sent to scan. Consult with [facility] Heme/Onc 09/21/2024, scheduled with [facility] GI 10/07/2024 Shared decision making to start p.o. iron supplement. Follow-up with any side effects. ED precautions reviewed * Assessment & Plan Note - BE Chavez - 09/26/2024 1:36 PM ESTAssociated Problem(s): Type 2 diabetes mellitus without complication (CMS/HCC) Lab Results Component Value Date HGBA1C 6.9 (A) 09/17/2024 -A1c & lipids well controlled -Eye Exam: established with ophthalmology -Dental: referral to [facility] Dental 09/05/23 -Monofilament: abnormal on 04/16/22 and pt referred to podiatry. Last foot eval 09/17/2024. DME request for diabetic shoes sent . -ACEi/ARB: yes -Statin: yes -Cont metformin 500mg [...] 06/14/2024 LDLCHOLCAL 54 12/23/2023 LDLCHOLCAL 68 11/01/2022 * Assessment & Plan Note - BE Chavez - 09/26/2024 1:35 PM ESTAssociated Problem(s): Osteoarthritis of first metatarsophalangeal (MTP) joint of right foot Previously followed with podiatry. Will let us know if interested in new referral. Encouraged comfortable footwear and good foot hygiene * Assessment & Plan Note - BE Chavez - 09/26/2024 1:33 PM ESTAssociated Problem(s): Heart failure with reduced ejection fraction (CMS/HCC) Blood pressure well-controlled Follow up with Cards as scheduled Follow up/ED precautions reviewed DME request for 10 in 1 pillow placed September 2024 documented in this encounter Plan of Treatment Upcoming Encounters Date Type Department Care Team (Late st Contact Info) Description 09/29/2024 2:00 PM EST Medication Management [facility] [address] [place] [address] documented as of this encounter Visit Diagnoses Diagnosis Heart failure with reduced ejection fraction (CMS/HCC)- Primary Cervical paraspinal muscle spasm Spasm of muscle Dietary counseling Dietary surveillance and counseling Exercise counseling Osteoarthritis of first metatarsophalangeal (MTP) joint of right foot Type 2 diabetes mellitus without complication, without long-term current use of insulin (CMS/HCC) Anemia, unspecified type documented in this encounter Additional Health Concerns Assessment Noted Time PHQ-9 Depression Total Score: 4 02/09/20 24 10:42 AM EDT documented as of this encounter Care Teams Fundraising Consultant Relationship Specialty Start Date End Date Lupe Moralez FNP [address] [place] [address] PCP - General Family Medicine 04/16/22 Perry Quintero MD [address] [place] [address] Cardiology 06/14/24 documented as of this encounter
--- OUTSIDE RECORDS SUMMARY | 2024-09-27 16:20 | XMS_ITS | Encounter Summary ---
Author Organization [facility] [facility] Address [address] [place] [address] 7t [place] [address] Care Team Providers Care Sanitary Aide Name Role Phone Lupe Moralez Primary Care Provider [phone] Perry Quintero MD Unavailable [phone] Reason for Referral * Consultation (STAT) - Authorized Specialty Diagnoses / Procedures Referred By Chet green Referred To Contact Hematology and Oncology Diagnoses Anemia, unspecified type Lupe Moralez FNP [address] [place] [address] Phone: tel: fax: [facility] [place] Referral ID Status Reason Start Date Expiration Date Visits Requested Visits Authorized [id number] Authorized Specialty Services Required 09/17/2024 09/17/2025 1 1 * Consultation (STAT) - Closed Specialty Diagnoses / Procedures Referred By Chet green Referred To Contact Gastroenterology Diagnoses Anemia, unspecified type Lupe Moralez FNP [address] [place] [address] Phone: tel: fax: [facility] Gastroenterology [address] [place] [address] [place], [place] Phone: tel: fax: Referral ID Status Reason Start Date Expiration Date V isits Requested Visits Authorized [id number] Closed Specialty Services Required 09/17/2024 09/17/2025 1 1 Reason for Visit * Reason Comments Diabetes Anemia gout Encounter Details Date Type Department Care Team ([facility] st Contact Info) Description 09/17/2024 1:45 PM EST Office Visit [facility] MED & PEDS [address] [place] [address] Naomy Lupe, CONTRACTING SUPPORT SPECIALIST [address] [place], [place] Anemia, unspecified type (Primary Dx); Type [...] this encounter Progress Notes * Lupe Moralez, CONTRACTING SUPPORT SPECIALIST - 09/17/2024 1:45 PM EST Subjective: Charleen [...] 06/14/24 Recently returned from a trip to [place] where she was hospitalized for significant anemia, [...] associated symptoms. Last colonoscopy approximately 2021 in [place] per daughter. Gout: Seen yesterday for sick [...] as recent significant anemia. DME request through [facility]. Review of Systems Constitutional: Negative for chills [...] 10-15% on 11/21/23 11/25/23: ICD Implant at [facility] with Dr. Jacob 12/23/23: EF improved to [...] Endocrine/Metabolic Type 2 diabetes mellitus without complication ([facility]) Current Assessment & Plan Lab Results Component [...] in differential. Risk factors: AC Seen in [place] on 09/09/24 and had Hgb of 4.9. Recieved transfusion of about 6 units of blood on09/11/24. Records requested from [place], available lab work reviewed and sent to scan. Referral to [facility] and [facility] for [...] in differential. Risk factors: AC Seen in [place] on 09/09/24 and had Hgb of 4.9. Recieved transfusion of about 6 units of blood on09/11/24. Records requested from [place], available lab work reviewed and sent to scan. Referral to [facility] and [facility] for [...] Description 09/29/2024 2:00 PM EST Medication Management [facility] MEDICINE [address] [place] [address] Pending Results Name Type Priority Associated Diagnoses Date /Time Cologuard?? colon cancer screening Lab Routine Anemia, unspecified type Screening for colon cancer 09/24/2024 10:59 AM EST Scheduled Referrals Name Type Priority Associated Diagnoses [...] complication, without long-term current use of insulin ([facility]) POCT GLUCOSE Routine 09/17/2024 2:02 PM EST Type 2 diabetes mellitus without complication, without long-term current use of insulin ([facility]) documented in this encounter Results * XR Foot 3+ Views Right (09/23/2024 1:38 PM EST) Anatomical Region Laterality Modality Lower Extremities, Foot Right Radiogra phic Imaging 09/23/2024 1:38 PM EST Narrative 09/23/2024 2:02 PM EST ? [facility] [place] ?[address] ?[place] [address] ?XRay Report ? Signed ? Patient: Scotty Hiens,Charleen ?MR#: MM ?? [id number] ? : 1945 ?Acct:[id number] ? Age/Sex: 79 / F ?ADM Date: 09/23/24 ? Loc: HO.HHCL ? Attending Dr: Lupe Moralez CONTRACTING SUPPORT SPECIALIST ? Ordering Physician: Lupe Moralez CONTRACTING SUPPORT SPECIALIST ?? Date of Service: 09/23/24 ?? Procedure(s): XR foot RT min 3V ?? Accession Number(s): [id number] ? cc: Lupe Moralez ? EXAMINATION: ?? [...] metatarsophalangeal joint. ? Electronically signed by: ??Crescencio Feltcher MD ??09/23/2024 02:00 PM ?? EST RP ? Dictated By: ?Crescencio Franz MD ? Signed By: ?<Electronically signed by Crescencio Myrick MD in OV> ? 09/23/24 1400 ? DD/ 1338 ? TD/TT: 09/23/24 1351 ? Senior Treasury Analyst: ? Procedure Note Kashmir Ruffin - 09/23/[address] [address] XRay Report Signed Patient: Umberto Gallo#: [id number] : 5Acct:[id number] Age/Sex: 79 / FADM Date: 09/23/24 Loc: HO.HHCL Attending Dr: Lupe Moralez CONTRACTING SUPPORT SPECIALIST Ordering Physician: Lupe Moralez Date of Service: 09/23/24 Procedure(s): XR foot RT min 3V Accession Number(s): [id number] cc: Lupe Moralez EXAMINATION: XR FOOT, RIGHT [...] 09/23/24 1400 DD/ 1338 TD/TT: 09/23/24 1351 Senior Treasury Analyst: us Lupe Moralez CONTRACTING SUPPORT SPECIALIST IMG XR PROCEDURES Final Result * (ABNORMAL) CBC auto differential (09/23/2024 1:24 PM EST) White Blood Count 10.1 4.8 - 10.8 X10*3/uL [facility] Red Blood Count 3.92(L) 4.20 - 5.50 X10*6/uL [facility] Hemoglobin 10.7(L) 12.0 - 16.0 g/dl [facility] Hematocrit 35.3(L) 37.0 - 47.0 % [facility] Mean Corpuscular Volume 90.1 80.0 - 98.0 fL [facility] Mean Corpuscular Hemoglobin 27.3 27.0 - 33.0 pg [facility] Mean Corpuscular HGB Conc 30.3(L) 31.0 - 35.0 g/dl [facility] Red Cell Distribution Width 15.1 11.0 - 16.0 % [facility] Platelet Count 406(H) 160 - 400 X10*3/uL [facility] Mean Platelet Volume 10.9 9.4 - 12.3 fL [facility] Neutrophils Percent Auto 72.9 45 - 73 % [facility] Imm Gran Pct Auto 0.6(H) 0.0 - 0.4 % [facility] Lymphocytes Percent Auto 18.5(L) 20 - 40 % [facility] Monocytes Percent Auto 5.5 2 - 11 % [facility] Eosinophils Percent Auto 2.0 0 - 4 % [facility] Basophils Percent Auto 0.5 0 - 2 % [facility] NRBC Pct Auto 0.0 0.0 - 0.2 /100WBC [facility] Neutrophils Absolute Auto 7.4 2.0 - 8.3 x10*3/uL [facility] Imm Gran Abs Auto 0.06(H) 0.00 - 0.03 X10*3/uL [facility] Lymphocytes Absolute Auto 1.9 1.2 - 4.9 X10*3/uL [facility] Monocytes Absolute Auto 0.6 0.1 - 1.2 X10*3/uL [facility] Eosinophils Absolute Auto 0.2 0.0 - 0.4 X10*3/uL [facility] Basophils Absolute Auto 0.1 0.0 - 0.2 X10*3/uL [facility] NRBC Abs Auto 0.000 0.0 - 0.012 X10*3/uL [facility] Blood Venous blood specimen / Unknown 09/23/2024 1:24 PM EST 09/23/2024 4:13 PM EST Lupe Moralez [facility] LAB BLOOD ORDERABLES Final Res ult [facility] [address] [place] [phone] * (ABNORMAL) POCT HGB A1C (09/17/2024 2:07 PM EST) [facility] Hemoglobin A1C 6.9(A) 4.0 - 6.0 % [employer] Lot # [id number] Lot# Expiration Date ,195 Blood 09/17/2024 2:07 PM EST [employer] CONTRACTING SUPPORT SPECIALIST POINT OF CARE TEST ENTER/EDIT ORDERABLES Final Result * (ABNORMAL) POCT Glucose (09/17/2024 2:02 PM EST) [facility] Glucose Blood, POC 301(A) 60 - 200 mg/dL [employer] Media Lot # [id number] Lot# Expiration Date Blood Capillary blood specimen / Unknown 09/17/2024 2:02 PM EST Lupe LR POINT OF CARE TEST ENTER/EDIT ORDERABLES Final [...] documented as of this encounter Care Teams Sanitary Aide Relationship Specialty Start Date End Date Lupe Moralez FNP [address] [place] [address] PCP - General Family Medicine 04/16/22 Perry Quintero MD [address] [place] [phone] Cardiology 06/14/24 documented as of this encounter
--- OUTSIDE RECORDS SUMMARY | 2024-09-27 16:20 | XMS_ITS | Encounter Summary ---
Author Organization [employer] Address [address] [facility] [address]t [place] [address] Care Team Providers Care Blood Bank Laboratory Professional Name Role Phone Lupe Moralez Primary Care Provider [phone] Perry Quintero MD Unavailable [phone] Encounter Details Date Type Department Care Team ([facility] st Contact Info) Description 09/16/2024 Orders Only [facility] MED & PEDS [address] [place] [address] Lupe Moralez FNP [address] [place] [address] Social History Tobacco Use Types Packs/Day Years [...] Upcoming Encounters Date Type Department Care Team ([facility] st Contact Info) Description 09/29/2024 2:00 PM EST Medication Management [facility] MEDICINE [address] [place] [address] documented as of this encounter Procedures Procedure Name Priority Date/Time Associated Diagnosis Comments SLIDE REVIEW Routine 09/16/2024 1:56 PM EST documented in this encounter Results * Slide Review (09/16/2024 1:56 PM EST) Slide Review VERIFIED [facility] 09/16/2024 1:56 PM EST 09/16/2024 4:02 PM EST us Lupe LR LAB BLOOD ORDERABLES Final Res ult [facility] [address] [place] [address] [phone] documented in this encounter Visit Diagnoses Not on filedocumented in this encounter Additional Health Concerns Assessment Noted Time PHQ-9 Depression Total Score: 4 02/09/20 24 10:42 AM EDT documented as of this encounter Care Teams Blood Bank Laboratory Professional Relationship Specialty Start Date End Date Lupe Moralez FNP [address] [place] [address] PCP - General Family Medicine 04/16/22 Perry Quintero MD [address] [place] [address] Cardiology 06/14/24 documented as of this encounter
--- OUTSIDE RECORDS SUMMARY | 2024-09-27 16:20 | XMS_ITS | Encounter Summary ---
Author Organization [employer] Address [address] [facility] 7t [place] [address] Care Team Providers Care Fiscal Clerk Name Role Phone Lupe Moralez BE Primary Care Provider [phone] Perry Quintero MD Unavailable [phone] Reason for Visit * Reason Onset Date Comments Chart Prep 09/23/2024 Encounter Details Date Type Department Care Team ([facility] st Contact Info) Description 09/23/2024 Telephone [facility] MED & PEDS [address] [place] [address] Bibi Correa MA Chart Prep Social History [...] Description 09/29/2024 2:00 PM EST Medication Management [facility] MEDICINE [address] [place] [address] documented as of this encounter Visit Diagnoses Not on filedocumented in this encounter Additional Health Concerns Assessment Noted Time PHQ-9 Depression Total Score: 4 02/09/20 24 10:42 AM EDT documented as of this encounter Care Teams Fiscal Clerk Relationship Specialty Start Date End Date Lupe Moralez FNP [address] [place] [address] PCP - General Family Medicine 04/16/22 Perry Quintero MD [address] [place] [address] Cardiology 06/14/24 documented as of this encounter
--- OUTSIDE RECORDS SUMMARY | 2024-09-27 16:21 | XMS_ITS | Encounter Summary ---
Author Organization [employer] Address [address] [facility] 7t [place] [address] Care Team Providers Care Center Director Lead Teacher Name Role Phone Lupe Moralez BE Primary Care Provider [phone] Perry Quintero MD Unavailable [phone] Encounter Details Date Type Department Care [...] Description 09/29/2024 2:00 PM EST Medication Management [facility] MEDICINE [address] [place] [address] documented as of this encounter Visit Diagnoses Not on filedocumented in this encounter Additional Health Concerns Assessment Noted Time PHQ-9 Depression Total Score: 4 02/09/20 24 10:42 AM EDT documented as of this encounter Care Teams Center Director Lead Teacher Relationship Specialty Start Date End Date Lupe Moralez FNP [address] [place] [address] PCP - General Family Medicine 04/16/22 Perry Quintero MD [address] [place] [address] Cardiology 06/14/24 documented as of this encounter
--- OUTSIDE RECORDS SUMMARY | 2024-09-27 16:21 | XMS_ITS | Encounter Summary ---
Author Organization [employer] Address [address] [facility] [address]t [place] [address] Care Team Providers Care Custom Bow Maker Name Role Phone Lupe Moralez Primary Care Provider [phone] Perry Quintero MD Unavailable [phone] Reason for Visit * Reason Comments Med Refill Encounter Details Date Type Department Care Team (Late st Contact Info) Description 09/17/[address] [facility] MEDICINE [address] [place] [address] Lupe Moralez FNP [address] [place], [place] [phone] Sleep difficulties Social History Tobacco Use Types [...] Description 09/29/2024 2:00 PM EST Medication Management [facility] MEDICINE [address] [place] [address] documented as of this encounter Visit Diagnoses Diagnosis Sleep difficulties documented in this encounter Additional Health Concerns Assessment Noted Time PHQ-9 Depression Total Score: 4 02/09/20 24 10:42 AM EDT documented as of this encounter Care Teams Custom Bow Maker Relationship Specialty Start Date End Date Lupe Moralez FNP [address] [place] [address] PCP - General Family Medicine 04/16/22 Perry Quintero MD [address] [place] [address] Cardiology 06/14/24 documented as of this encounter
--- OUTSIDE RECORDS SUMMARY | 2024-09-27 16:21 | XMS_ITS | Encounter Summary ---
Author Organization [employer] Address [address] [facility] [address] [place] [address] Care Team Providers Care Glove Sewer Name Role Phone Lupe Moralez Primary Care Provider [phone] Perry Quintero MD Unavailable Reason for Visit * Reason Comments Med Refill Encounter Details Date Type Department Care Team (Late st Contact Info) Description 05/09/2023 Refill [facility] MEDICINE [address] [place] [address] Lupe Moralez FNP [address] [place], [place] [phone] Gastroesophageal reflux disease, unspecified whether esophagitis present [...] Description 09/29/2024 2:00 PM EST Medication Management [facility] MEDICINE [address] [place] [address] documented as of this encounter Visit Diagnoses Diagnosis Gastroesophageal reflux disease, unspecified whether esophagitis present documented in this encounter Additional Health Concerns Assessment Noted Time PHQ-9 Depression Total Score: 5 01/03/20 23 2:27 PM EDT documented as of this encounter Care Teams Glove Sewer Relationship Specialty Start Date End Date Lupe Moralez FNP [address] [place] [address] PCP - General Family Medicine 04/16/22 Perry Quintero MD [address] [place] [address] Cardiology 06/14/24 documented as of this encounter
== END 2024-09-27 15:06 | disposition home or self-care (01) ==
PROVIDERS: PCP Registered Nurse; Visit Provider Physician Assistant Medical
DX: G47.33 Obstructive sleep apnea (adult) (pediatric) (principal); Z99.89 Dependence on other enabling machines and devices; F51.01 Primary insomnia; H83.3X9 Noise effects on inner ear, unspecified ear
CPT/HCPCS: 99214

== ENCOUNTER → 2024-09-27 14:11 | Outpatient (BNVA) | payer OTHER, SELFPAY | PROVIDERS: PCP Registered Nurse; Visit Provider Physician Assistant Medical | DX: G47.33 Obstructive sleep apnea (adult) (pediatric) (principal); F51.01 Primary insomnia; H83.3X9 Noise effects on inner ear, unspecified ear | CPT/HCPCS: 99212 ==

== ENCOUNTER 2024-10-14 13:52 | Outpatient (AMB) | payer OTHER, SELFPAY ==
--- NOTE | 2024-10-14 13:54 | A.OFFVIS_ITS ---
Intake Visit Reasons: 1y/MAMADOU follow up Intake Note: Patient presents today for a 1Y Follow up/MAMADOU Meds:VITAMIN B12 Allergies to Antibiotic: Penicillin Blood Thinner: APIXABAN Ceiling Insulation Blower Required: Yes Ceiling Insulation Blower Language: Claim Approver Name: Anup [id number] Information Interpreted: non-clinical & clinical Accompanied by: Daughter Allergies Penicillins Allergy (Intermediate, Verified 10/14/24 13:56) Rash HPI Comments Details: 10/14/24-- History of Present Illness The patient is an 79-year-old female presenting with urinary issues and related discomfort, potentially linked to an underlying vaginal infection. Recently, an episode of vaginal irritation led her to seek care, where her urine sample was checked and deemed satisfactory but did not fully alleviate her discomfort. The patient was observed to have some redness and irritation possibly indicative of a yeast infection. Consequently, she was prescribed an antifungal medication for symptoms suspected to arise from yeast colony growth in areas prone to moisture. Alongside, the patient experiences urinary incontinence, mitigated currently with the use of daily sanitary pads. Her nocturnal urinary patterns involve waking one time per night; however, in general, she manages her condition to avoid severe leakage. She has expressed a preference for non-pharmacologic management unless the condition turns more severe. Urinary Symptoms Review - Daily use of pads for urinary leakage. - Nocturia, typically waking once per night. - Occasional discomfort upon urination associated with prior vaginal irritation. - Emphasis on managing condition with pads to limit medication use. Review of Systems - Genitourinary: Reports episodes of vaginal itchiness and irritation. Review of Systems Const All systems reviewed & are unremarkable except as noted in HPI and below Reports no additional complaints Eyes Reports no additional complaints ENT Reports no additional complaints Card Reports no additional complaints Resp Reports no additional complaints GI Reports no additional complaints Reports as per HPI Musc Reports no additional complaints Skin/Breast Reports system reviewed and no additional complaints, except as documented Neuro Reports no additional complaints Psych Reports no additional complaints Endo Reports no additional complaints Michele/Lymph Reports no additional complaints Aller/Immun Reports no additional complaints Physical Exam General: Cooperative, healthy appearing and no acute distress Orientation and Consciousness: Patient oriented x3 Head: Yes normal to inspection, Yes normocephalic and Yes atraumatic Eyes: Conjunctivae normal Neck: Yes normal visual inspection and Yes trachea midline Chest: Normal inspection of the chest Respiratory: Normal respiratory effort GI: Normal to inspection : Neuro: Patient oriented x3 Extremities: Skin: Psych: Appearance grossly normal Results - Urine check during recent clinic visit identified satisfactory results with no blood present on examination. Plan Today's session covered a comprehensive analysis of vaginal candidiasis and urinary incontinence. The antifungal treatment remains in place as it effectively addresses the current concern of redness and irritation suggestive of a yeast infection. Staying vigilant about systemic medication, hydration was emphasized to maintain clear urine. Incontinence management continues with the use of pads, reflecting the patient?s current preference for non-pharmacologic interventions. This approach may be adjusted based on symptom progression, with thoughts towards advancing medical options should incontinence worsen. Patient was informed and verbally consented to the use of an ambient scribe for clinic note documentation during this visit. Discussion Notes I discussed the current status of vaginal candidiasis and urinary incontinence in detail with the patient, confirming the use of prescribed antifungal treatment as appropriate. Emphasized the importance of cleaning and hydrating to manage symptoms effectively. The patient's preference for utilizing pads over pharmacologic treatments for incontinence was noted, with consideration to reassess should her condition change. The approach to manage urine discoloration was thoroughly explained. Agreed upon the importance of hydration and discussed monitoring the symptoms closely, with plans to follow up should any questions or issues arise. Additionally, consent was implicit in using pads and reserving medical treatments unless necessary. Patient Instructions - Continue using antifungal medication as prescribed for vaginal discomfort. - Maintain hydration to ensure urine remains clear. - Use pads for urinary incontinence management. - Monitor symptoms and contact the primary care doctor if there are any concerns about urine color changes or other symptoms. - Follow up in one year or earlier if symptoms worsen. 10/15/23---Charleen is a 78-year-old female who presents today to the office for a follow-up. Pt is sierra leonean speaking, certified seismic interpreter present. She is here with her daughter. She states she is doing better with her bladder control. She has been doing the kegel exercises, she wears a pad daily but states that there is minimal leakage that is noted. She denies irritative voiding symptoms. She is happy with the bladder control at this time. 04/14/2023? Pt is [place]one[place] speaking, certified seismic interpreter present. She is followed today for a cystoscopy procedure. She was hospitalized for acute kidney injury, and she was referred to the urology for gross hematuria at that time. Patient was seen by me in consultation for gross hematuria on 03/17/2023 and at that time, she was treated for urinary tract infection. She complains of having on and off urine leakage associated with coughing. She states that her her diabetic medication was changed as it may have contributed to the UTI. I reviewed the abdomen/pelvis CT results from 03/15/2023 revealed no stone or hydronephrosis. I reviewed the urine culture results from 03/11/2023 revealed Escherichia coli 50,000 to 100,000 cfu/mL. Cystoscopy procedure: Cystoscopy normal findings: no suspicious bladder lesion found. Evaluation today?UA? Leukocytes: 15 Hugh; blood: negative. Discussed Kegel?s exercises with the patient. Follow up in 6 months. 10/15/23--PLAN: The patient is doing well at this time and will follow-up on a p.r.n. basis [facility] Medical History Numbness of left hand Bilateral hand numbness Vitamin B12 deficiency Neuropathy Breast cancer, right breast Sleep apnea COVID-19 GERD (gastroesophageal reflux disease) Daytime sleepiness Surgical History History of carpal tunnel release H/O right mastectomy History of bilateral oophorectomies History of cholecystectomy History of appendectomy Family History Father No problems noted. Mother No problems noted. Social History Household Members: Other Household Members Other:: daughter Housing: House Do you presently have visiting nurse or other home services: Yes (nursing home assistant) Unable to assess alcohol history related to: Unknown Alcohol intake: never Patient Tobacco Use Status: Never used Tobacco Second Hand Smoke Exposure: No service: No Current occupational status: retired Review of Systems Const All systems reviewed & are unremarkable except as noted in HPI and below Reports no additional complaints Eyes Reports no additional complaints ENT Reports no additional complaints Card Reports no additional complaints Resp Reports no additional complaints GI Reports no additional complaints Reports as per HPI Musc Reports no additional complaints Skin/Breast Reports system reviewed and no additional complaints, except as documented Neuro Reports no additional complaints Psych Reports no additional complaints Endo Reports no additional complaints Michele/Lymph Reports no additional complaints Aller/Immun Reports no additional complaints Results AMB Urinalysis, Automated UA Leukoctes 0 Hugh/uL Last Edit by Caitlyn Wadsworth on 10/14/24 14:29 UA Nitrite Negative Last Edit by Caitlyn Wadsworth on 10/14/24 14:29 UA Urobilinogen 3.5 mg/dL Last Edit by Caitlyn Wadsworth on 10/14/24 14:29 UA Protein 1 mg/dL Last Edit by Caitlyn Wadsworth on 10/14/24 14:29 UA pH 0 Last Edit by Caitlyn Wadsworth on 10/14/24 14:29 UA Blood 0 Sim/uL Last Edit by Caitlyn Wadsworht on 10/14/24 14:29 UA Specific [place] 1.015 Last Edit by Crystal Wadsworth on 10/14/24 14:29 UA Ketone Negative Last Edit by Caitlyn Wadsworth on 10/14/24 14:29 UA Bilirubin 0 mg/dL Last Edit by Caitlyn Wadsworth on 10/14/24 14:29 UA Glucose 60 mg/dL Last Edit by Caitlyn Wadsworth on 10/14/24 14:29 Results Reviewed Results Reviewed: Laboratory Last Values Urine pH (Auto) 0 10/14/24 13:59 Specific [place] (Auto) 1.015 10/14/24 13:59 Urine Protein (Auto) 1 mg/dL 10/14/24 13:59 Glucose (UA)(Auto) 60 mg/dL 10/14/24 13:59 Urine Ketones (Auto) Negative 10/14/24 13:59 Urine Blood (Auto) 0 Sim/uL 10/14/24 13:59 Urine Nitrite (Auto) Negative 10/14/24 13:59 Urine Bilirubin (Auto) 0 mg/dL 10/14/24 13:59 Urine Urobilinogen (Auto) 3.5 mg/dL 10/14/24 13:59 Leukocyte Esterase (Auto) 0 Hugh/uL 10/14/24 13:59 Assessment & Plan Assessment & Plan (1) MAMADOU (stress urinary incontinence, female): Code(s): N39.3 - Stress incontinence (female) (male) Category: Medical Orders: Orders AMB Urinalysis Automated Today Z13.9 - Encounter for screening, unspecified Patient Instructions: The patient had an opportunity to ask questions regarding treatment plan. The patient expressed understanding and agreement with the above treatment plan. The patient is aware they should contact our office by phone for worsening of their current condition or the appearance of new symptoms. Compliance is encouraged with any medications and followup testing that is ordered. It is a privilege to be allowed the opportunity to participate in the urologic care of your patient. If you have any questions or concerns regarding treatment for the above conditions please do not hesitate to contact me. The office telephone contact is [phone]. This note is constructed in part using voice recognition software. While every effort has been made to ensure accuracy microwave remote sensing scientist errors may have been included. Yours sincerely, Lucy Gilbert MD Coding Diagnoses MAMADOU (stress urinary incontinence, female) N39.3
--- OUTSIDE RECORDS SUMMARY | 2024-10-14 17:36 | XMS_ITS | Encounter Summary ---
Author Organization [employer] [facility] Address [address] [place] [address] 7[address] [place] [address] Care Team Providers Care Nitro Worker Name Role Phone Lupe Moralez Primary Care Provider [phone] Perry Quintero MD Unavailable [phone] Encounter Details Date Type Department Care Team (Late st Contact Info) Description 03/18/2023 Abstract [facility] MEDICINE [address] [place], [place] [phone] Lupe Moralez FNP [address] [place], [place] [phone] Social History Tobacco Use Types Packs/Day Years [...] Care Team (Late st Contact Info) Description 11/05/2024 1:45 PM EDT Office Visit [facility] CHC MED & PEDS [address] [place], [place] [phone] Lupe Moralez FNP [address] [place], [place] [phone] documented as of this encounter Visit Diagnoses Not on filedocumented in this encounter Additional Health Concerns Assessment Noted Time PHQ-9 Depression Total Score: 5 01/03/20 23 2:27 PM EDT documented as of this encounter Care Teams Nitro Worker Relationship Specialty Start Date End Date Lupe Moralez FNP [address] [place] [address] PCP - General Family Medicine 04/16/22 Perry Quintero MD [address] [place] [address] Cardiology 06/14/24 documented as of this encounter
--- OUTSIDE RECORDS SUMMARY | 2024-10-14 17:37 | XMS_ITS | Encounter Summary ---
Author Organization [employer] Address [address] [facility] 7t [place] [address] Care Team Providers Care Electrical Engineering Designer Name Role Phone Lupe Moralez Primary Care Provider Perry Quintero MD Unavailable [phone] Reason for Visit * Reason Onset Date Comments Med Refill 08/16/2024 Encounter Details Date Type Department Care Team ([facility] st Contact Info) Description 08/16/2024 Telephone [facility] MED & PEDS [address] [place] [address] Lupe Moralez FNP [address] [place] [address] Med Refill Social History Tobacco Use Types [...] 24 hr tablet To be sent to: [facility] - [place], [place] - [address] [facility] documented in this encounter Plan of Treatment Upcoming Encounters Date Type Department Care Team (Late st Contact Info) Description 11/05/2024 1:45 PM EDT Office Visit [facility] MED & PEDS [address] [place] [address] Lupe Moralez FNP [address] [place] [address] documented as of this encounter Visit Diagnoses Not on filedocumented in this encounter Additional Health Concerns Assessment Noted Time PHQ-9 Depression Total Score: 4 02/09/20 24 10:42 AM EDT documented as of this encounter Care Teams Electrical Engineering Designer Relationship Specialty Start Date End Date Lupe Moralez FNP [address] [place] [address] PCP - General Family Medicine 04/16/22 Perry Quintero MD [address] [place] [address] Cardiology 06/14/24 documented as of this encounter
--- OUTSIDE RECORDS SUMMARY | 2024-10-14 17:37 | XMS_ITS | Encounter Summary ---
Author Organization [employer] [facility] Address [address] [place] [address] 7t [place] [address] Care Team Providers Care Reel Tender Name Role Phone Lupe Moralez Primary Care Provider [phone] Perry Quintero MD Unavailable [phone] Encounter Details Date Type Department Care Team ([facility] Contact Info) Description 11/07/2022 Abstract [facility] MEDICINE [address] [place], [place] [phone] Lupe Moralez FNP [address] [place] [address] Social History Tobacco Use Types Packs/Day Years [...] Upcoming Encounters Date Type Department Care Team ([facility] Contact Info) Description 11/05/2024 1:45 PM EDT Office Visit [facility] CHC MED & PEDS [address] [place], [place] [phone] Lupe Moralez FNP [address] [place] [address] documented as of this encounter Visit Diagnoses Not on filedocumented in this encounter Care Teams Reel Tender Relationship Specialty Start Date End Date Lupe Moralez FNP [address] [place] [address] PCP - General Family Medicine 04/16/22 Perry Quintero MD [address] [place] [address] Cardiology 06/14/24 documented as of this encounter
--- OUTSIDE RECORDS SUMMARY | 2024-10-14 17:37 | XMS_ITS | Encounter Summary ---
Author Organization [employer] Address [address] [facility] 7t [place] [address] Care Team Providers Care Manager Transit Name Role Phone Lupe Moralez Primary Care Provider [phone] Perry Quintero MD Unavailable [phone] Reason for Visit * Reason Onset Date Comments Durable Medical Equipment 09/27/2024 Encounter Details Date Type Department Care Team ([facility] st Contact Info) Description 09/27/2024 Telephone [facility] CHC MED & PEDS [address] [place] [address] Lupe Moralez FNP [address] [place] [address] Durable Medical Equipment Social History Tobacco Use [...] Encounter - Maryann Lord LPN - 09/27/2024 10:03 AM EST Rx [...] Description 11/05/2024 1:45 PM EDT Office Visit [facility] MED & PEDS [address] [place] [address] Lupe Moralez FNP [address] [place] [address] documented as of this encounter Visit Diagnoses Not on filedocumented in this encounter Additional Health Concerns Assessment Noted Time PHQ-9 Depression Total Score: 4 02/09/20 24 10:42 AM EDT documented as of this encounter Care Teams Manager Transit Relationship Specialty Start Date End Date Lupe Moralez FNP [address] [place] [address] PCP - General Family Medicine 04/16/22 Perry Quintero MD [address] [place] [address] Cardiology 06/14/24 documented as of this encounter
--- OUTSIDE RECORDS SUMMARY | 2024-10-14 17:37 | XMS_ITS | Encounter Summary ---
Author Organization [employer] Address [address] [facility] 7t [place] [address] Care Team Providers Care Atmospheric Drier Tender Name Role Phone Lupe Moralez Primary Care Provider [phone] Perry Quintero MD Unavailable Reason for Visit * Reason Comments Med Refill Encounter Details Date Type Department Care Team ([facility] st Contact Info) Description 05/31/2024 Refill [facility] MEDICINE [address] [place] [address] Lupe Moralez FNP [address] [place], [place] [phone] Gastroesophageal reflux disease, unspecified whether esophagitis present [...] Description 11/05/2024 1:45 PM EDT Office Visit [facility] MED & PEDS [address] [place] [address] Lupe Moralez FNP [address] [place] [address] documented as of this encounter Visit Diagnoses Diagnosis Gastroesophageal reflux disease, unspecified whether esophagitis present documented in this encounter Additional Health Concerns Assessment Noted Time PHQ-9 Depression Total Score: 4 02/09/20 24 10:42 AM EDT documented as of this encounter Care Teams Atmospheric Drier Tender Relationship Specialty Start Date End Date Lupe Moralez FNP [address] [place] [address] PCP - General Family Medicine 04/16/22 Perry Quintero MD [address] [place] [address] Cardiology 06/14/24 documented as of this encounter
--- OUTSIDE RECORDS SUMMARY | 2024-10-14 17:37 | XMS_ITS | Encounter Summary ---
Author Organization [employer] Address [address] [facility] 7t [place] [address] Care Team Providers Care Tour Bus Driver Name Role Phone Lupe Moralez Primary Care Provider [phone] Perry Quintero MD Unavailable [phone] Reason for Visit * Reason Onset Date Comments Durable Medical Equipment 09/27/2024 Encounter Details Date Type Department Care Team ([facility] st Contact Info) Description 09/27/2024 Telephone [facility] CHC MED & PEDS [address] [place] [address] Lupe Moralez FNP [address] [place] [address] Durable Medical Equipment Social History Tobacco Use [...] Upcoming Encounters Date Type Department Care Team ([facility] st Contact Info) Description 11/05/2024 1:45 PM EDT Office Visit [facility] MED & PEDS [address] [place] [address] Lupe Moralez FNP [address] [place] [address] documented as of this encounter Visit Diagnoses Not on filedocumented in this encounter Additional Health Concerns Assessment Noted Time PHQ-9 Depression Total Score: 4 02/09/20 24 10:42 AM EDT documented as of this encounter Care Teams Tour Bus Driver Relationship Specialty Start Date End Date Lupe Moralez FNP [address] [place] [address] PCP - General Family Medicine 04/16/22 Perry Quintero MD [address] [place] [address] Cardiology 06/14/24 documented as of this encounter
--- OUTSIDE RECORDS SUMMARY | 2024-10-14 17:37 | XMS_ITS | Encounter Summary ---
Author Organization [employer] Address [address] [facility] 7t [place] [address] Care Team Providers Care Driftman Name Role Phone Lupe Moralez Primary Care Provider [phone] Perry Quintero MD Unavailable [phone] Reason for Visit * Reason Onset Date Comments Results 10/01/2024 Encounter Details Date Type Department Care Team ([facility] Contact Info) Description 10/01/2024 Telephone [facility] MED & PEDS [address] [place] [address] Lupe Moralez FNP [address] [place] [address] Results Social History Tobacco Use Types Packs/Day Years [...] Telephone Encounter - Bibi Arceo MA - 10/01/2024 10:01 AM EST Call pt and pt's Daughter to let them know message below. Pt's Daughter verbalized to understand. * Telephone Encounter - Bibi Arceo MA - 10/01/2024 10:01 AM EST ----- Message from Lupe Moralez sent at 09/30/2024 7:37 PM EST ----- Please call to let her know that Cologuard test came back negative. The testing is designed to detect blood in the stool as well as abnormal cells that could indicate abnormal growths/polyps in the colon. Reassuring that hers came back negative. Thanks! documented in this encounter Plan of Treatment Upcoming Encounters Date Type Department Care Team (Late st Contact Info) Description 11/05/2024 1:45 PM EDT Office Visit [facility] MED & PEDS [address] [place] [address] Lupe Moralez FNP [address] [place] [address] documented as of this encounter Visit Diagnoses Not on filedocumented in this encounter Additional Health Concerns Assessment Noted Time PHQ-9 Depression Total Score: 4 02/09/20 24 10:42 AM EDT documented as of this encounter Care Teams Driftman Relationship Specialty Start Date End Date Lupe Moralez FNP [address] [place] [address] PCP - General Family Medicine 04/16/22 Perry Quintero MD [address] [place] [address] Cardiology 06/14/24 documented as of this encounter
--- OUTSIDE RECORDS SUMMARY | 2024-10-14 17:37 | XMS_ITS | Clinical Summary ---
Author Organization [facility] Address [address] [place] [address] Care Team Providers Care Tallow Refiner Name Role Phone Unavailable Primary Care Provider [...] patient's age to complete this topic Insurance [facility] ([id number]) [facility] ([id number])
--- OUTSIDE RECORDS SUMMARY | 2024-10-14 17:37 | XMS_ITS | Encounter Summary ---
Author Organization [employer] Address [address] [facility] 7t [place] [address] Care Team Providers Care Lubricating Machine Tender Name Role Phone Lupe Moralez BE Primary Care Provider [phone] Perry Quintero MD Unavailable [phone] Encounter Details Date Type Department Care Team ([facility] st Contact Info) Description 09/29/2024 3:40 PM EST Office Visit [facility] [address] [place] [address] Georgie Cleary MD [address] [place] [address] Candidal vaginitis (Primary Dx); Dysuria Social History Tobacco Use Types Packs/Day Years [...] Sign Reading Time Taken Comments Blood Pressure 118/64 09/29/2024 3:11 PM EST Pulse 76 09/29/2024 3:11 PM EST Temperature 35.8 ??C (96.4 ??F) 09/29/2024 3:11 PM ES T Respiratory Rate 16 09/29/2024 3:11 PM EST Oxygen Saturation 99% 09/29/2024 3:11 PM EST Inhaled Oxygen Concentration - - Weight 88.7 kg (195 lb 9.6 oz) 09/29/2024 3:11 P M EST Height 160 cm (5' 3 ) 09/29/2024 3:11 PM EST Body Mass Index 34.65 09/29/2024 3:11 PM EST documented in this encounter Progress Notes * Georgie Cleary MD - 09/29/2024 3:40 PM EST Subjective Patient ID: Charleen Hines is a 79 y.o. female who presents for No chief complaint on file.. Vaginal Itching The patient's primary symptoms include genital itching, a genital rash and vaginal discharge. This is a new problem. The current episode started yesterday. The problem occurs constantly. The problem has been unchanged. The pain is mild. She is not . Pertinent negatives include no abdominal pain, anorexia, back pain, chills, constipation, diarrhea, discolored urine, dysuria, fever, flank pain, headaches, hematuria, joint pain, joint swelling, nausea, painful intercourse, rash, sore throat, urgency or vomiting. Review of Systems Constitutional: Negative. Negative for chills and fever. HENT: Negative for sore throat. Respiratory: Negative. Negative for shortness of breath. Cardiovascular: Negative for chest pain and palpitations. Gastrointestinal: Negative. Negative for abdominal pain, anorexia, constipation, diarrhea, nausea and vomiting. Genitourinary: Positive for vaginal discharge. Negative for dysuria, flank pain, hematuria and urgency. Musculoskeletal: Negative for back pain, joint pain and neck pain. Skin: Negative for rash. Neurological: Negative for headaches. Objective Physical Exam Constitutional: Appearance: Normal appearance. Cardiovascular: Rate and Rhythm: Normal rate and regular rhythm. Pulses: Normal pulses. Heart sounds: Normal heart sounds. Pulmonary: Effort: Pulmonary effort is normal. Neurological: Mental Status: She is alert. Assessment/Plan Diagnoses and all orders for this visit: Candidal vaginitis Comments: Started On diflucan , 1 tab today and 1 on friday Advised to avoid toilet paper and use soap and water F/u as scheduled Dysuria - POCT urinalysis dipstick manually resulted Other orders - fluconazole (Diflucan) 150 MG tablet; Take 1 tablet (150 mg) by mouth 1 (one) time per week for 14 days. documented in this encounter Plan of Treatment Upcoming Encounters Date Type Department Care Team (Late st Contact Info) Description 11/05/2024 1:45 PM EDT Office Visit [facility] [address] [place] [address] Lupe Moralez FNP [address] [place] [address] documented as of this encounter Procedures Procedure Name Priority Date/Time Associated Diagnosis Comments POCT URINALYSIS DIPSTICK Routine 09/29/2024 3:13 PM EST Dysuria documented in this encounter Results * POCT urinalysis dipstick manually resulted (09/29/2024 3:13 PM EST) Color, UA Yellow Clarity, UA Clear Glucose, UA Many Comment:>=1000mg/dL Bilirubin, UA Negative Ketones, UA Negative Spec Grav, UA 1.010 Blood, UA Negative Negative, None Detected pH, UA 6.0 Protein, UA Negative Urobilinogen, UA 0.2 Leukocytes, UA Negative Negative, Rare, Trace Nitrite, UA Negative Negative, None Detected Appearance, UA clear QC Media Lot # [id number] Lot# Expiration Date Urine 09/29/2024 3:13 PM EST Georgie Cleary MD POINT OF CARE TEST ENTER/EDIT OR DERABLES Final Result documented in this encounter Visit Diagnoses Diagnosis Candidal vaginitis- Primary Candidiasis of vulva and vagina Dysuria documented in this encounter Additional Health Concerns Assessment Noted Time PHQ-9 Depression Total Score: 4 02/09/20 24 10:42 AM EDT documented as of this encounter Care Teams Lubricating Machine Tender Relationship Specialty Start Date End Date Lupe Moralez FNP [address] [place] [address] PCP - General Family Medicine 04/16/22 Perry Quintero MD [address] [place] [address] Cardiology 06/14/24 documented as of this encounter
--- OUTSIDE RECORDS SUMMARY | 2024-10-14 17:37 | XMS_ITS | Encounter Summary ---
Author Organization [employer] Address [address] [facility] 7t [place] [address] Care Team Providers Care Teamcenter Solution Architect Name Role Phone Lupe Moralez BE Primary Care Provider [phone] Perry Quintero MD Unavailable [phone] Reason for Visit * Reason Comments Foot Pain Encounter Details Date Type Department Care Team (Late st Contact Info) Description 09/16/2024 2:00 PM EST Office Visit [facility] [address] [place] [phone] Bernice Lamb MD [address] [place], [place] [phone] Gout involving toe of right foot, unspecified [...] Foot Pain. Pt reports she went to [place] on 09/02/24 and on 09/09/24 she went to the ER in [place] and her hemoglobin was 4 so she has blood transfusion on 09/11/24. Just got back last night. She denies BRBPR or melanotic stool. Lab Results Component Value Date HGB 9.7 (L) 06/14/2024 HGB 11.6 (L) 09/17/2023 HGB 12.2 04/16/2022 HEMATOCRIT 36.5 04/16/2022 Per caregiver, hemaglobin was 4 in [place] 09/2023 She reports since then she has [...] Uric acid Anemia Etiology unknown. Seen in [place] on 09/09/24 and had Hgb of 4. Got transfusion of about 6 units of blood on 09/11/24. Requesting records from [place]. -ordered CBC -has follow-up tomorrow. Relevant Orders [...] ESTAssociated Problem(s): Anemia Etiology unknown. Seen in [place] on 09/09/24 and had Hgb of 4. Got transfusion of about 6 units of blood on 09/11/24. Requesting records from [place]. -ordered CBC -has follow-up tomorrow. * Assessment [...] 11/05/2024 1:45 PM EDT Office Visit [facility] [address] [place] [address] Lupe Moralez, DISTRICT ASSOCIATE JUDGE [address] [place] [address] Scheduled Orders Name Type Priority Associated Diagnoses [...] Uric Acid 5.9(H) 2.4 - 5.7 mg/dL [facility] Blood Venous blood specimen / Unknown 09/16/2024 1:56 PM EST 09/16/2024 4:02 PM EST us Bernice Lamb MD LAB BLOOD ORDERABLES Final Result [facility] [address] [place] [address] [phone] documented in this encounter Visit Diagnoses Diagnosis Gout involving toe of right foot, unspecified cause, unspecified chronicity- Primary Anemia, unspecified type documented in this encounter Additional Health Concerns Assessment Noted Time PHQ-9 Depression Total Score: 4 02/09/20 24 10:42 AM EDT documented as of this encounter Care Teams Teamcenter Solution Architect Relationship Specialty Start Date End Date Lupe Moralez FNP [address] [place] [address] PCP - General Family Medicine 04/16/22 Perry Quintero MD [address] [place] [address] Cardiology 06/14/24 documented as of this encounter
--- OUTSIDE RECORDS SUMMARY | 2024-10-14 17:37 | XMS_ITS | Data Portability ---
Author Organization [employer] Address [address] [place] [phone] Care Team Providers Care Attractions Associate Name Role Phone [facility] Referring Provider HIM CCA OTHER Assessment [...] Orders prednisone [address] [facility], [address] [place] [address], [id number], 3 18:51:06 prednisone 20 mg tablet 2022 023 [facility], [address] [place] [address], [id number], 3 18:38:05 ipratropium 0.5 mg-albutero l 3 mg (2.5 mg base)/3 mL nebulizatio n soln [address] [facility], [address] [place] [address], [id number], 3 18:51:10 albuterol sulfate HFA 90 mcg/actuati on aerosol inhaler 2022 023 [id number], [address] [facility], [place], [place], [id number], 3 19:15:11 albuterol sulfate 2.5 mg/3 mL [...] Not available Not available Not available 06/01/2024 [id number] SNOMED Not Available [employer] - production [...] Available Not Available No t Available [employer] [place] Lite kit USE DIRECTED active Not Available [...] Address Organization Details Last Updated DateTime 2 011993. 792 g 18 /min 98.5 [degF] 74 /min 165.1 cm 96 % 96 % 101 mm[Hg] 68 mm[Hg] Not Available [facility] 2 16:36:35 Date Recorded Heart rate Body temperature Oxygen saturation Oxygen saturation in Arterial blood by Pulse oximetry Body weight Respiratory rate Systolic blood pressure Diastolic blood pressure Provider Name and Address Organization Details Last Updated DateTime 3 66 /min 98.4 [degF] 95 % 95 % 51709.2 56 g 16 /min 109 mm[Hg] 48 mm[Hg] Not Available [facility] 3 18:59:59 Date Recorded Body weight Oxygen saturation Oxygen saturation in Arterial blood by Pulse oximetry Heart rate Body temperature Respiratory rate Systolic blood pressure Diastolic blood pressure Provider Name and Address Organization Details Last Updated DateTime 3 43466.3 6 g 97 % 97 % 80 /min 97.7 [degF] 14 /min 96 mm[Hg] 52 mm[Hg] Not Available [facility] 3 18:35:18 Social History None recorded. Functional [...] Note 5855 Moise Chapa MD Main - [address] [phone] 07/08/2022 16:12:20 08/11/2023 11:58:45 Gastroesophageal reflux disease [id number] K21.00 This 76-year-ol d female called vaughnED yana cleary of moderately severe abdominal pain. When the thread grinder tool arrived, she seemed to indicate heartburn and [...] 6892 Tiffany Saravia MD Main - [facility] [address] [place] [phone] 08/12/2022 18:59:54 08/14/2022 10:30:11 Exacerbation of intermittent asthma [id number] J45.21 76y F with PMH CHF and asthma with mild asthma exacerbati on. Recently moved from [place]. No prior need for steroid treatment in setting of asthma. VSS. Responded well to albuterol nebs suggesting asthma over CHF. Will send inhaler to pharmacy. Encourage patient to f/u with primary care office to receive inhalers and to call us or primary care office if symptoms not improving with albuterol alone or if worsening. 25112 Yunior Berman MD Main - [facility] [address] [place] [phone] 12/23/2022 18:35:12 12/24/2022 14:44:55 Acute exacerbation of chronic obstructive pulmonary disease [id number] J44.1 Health Concerns Section Related Observation LastModified by Organization Detai ls LastModified Time None Recorded Concern Status LastModified by Organization Details LastModified Time None Recorded Advance Directives Directive None Recorded Payers Encounter Date Sequence Insurance Name Policy Number Policy Chavez Covered Member ID Chavez Member ID Guarantor Name 07/08/2022 1 [facility] (MEDICARE REPLACEMENT/ADV ANTAGE - PPO) Charleen Fajardo Hines [id number] Charleenjulian Romerooza 08/12/2022 1 [facility] - DOS PRIOR TO 2022 - DUAL ELIGIBLE (MEDICARE REPLACEMENT/ADV ANTAGE - HMO) Charleen Sorensengoshine RomeroHines [id number] Charleen Sorensengoshine RomeroHines 12/23/2022 1 [facility] - DOS PRIOR TO 2022 - DUAL ELIGIBLE (MEDICARE REPLACEMENT/ADV ANTAGE - HMO) Charleen Romerooza [id number] Charleen Hines Notes Date Note Type Note [...] ................... ................... ................... ................... ................... ................... ........ [employer] Note: Sent to a call for a pt complaining of abd pain and dizziness. SC[employer] arrives on scene, pt is alert and oriented. Airway is patent. Pt and daughter speak English. [employer] Pourer line used. Pt was treated for Covid [...] non-tender, no distention; Skin: pink, warm, dry; [facility] orders Mylanta PO. Pt advised to stay hydrated, buy Prilosec OTC and follow up with PCP. Red flags discussed. Pt/daughter have no further questions. ................... ................... ................... ................... ................... ................... ................... ........ 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 Also some mild shortness of breath. reports possible history of asthma but not on any inhalers. no sick contacts. no rhinorrhea or pharyngitis. has been on inhalers in the past but none currently. Tiffany Saravia MD [address] [place] [address],[address], [place], [phone], [facility] 08/12/2022 19:36:51 12/23/2022 text/html HPI: Patient with [...] ................... ................... ................... ................... ................... ................... ........ [employer] Note From Wally Bajwa: Pt reports dry [...] worsening sx which are reviewed with her. [facility] Medication Orders: prednisone 20 mg tablet: Administered [employer] Allergies: Penicillin ................... ................... ................... ................... ................... ................... ................... ........ Disposition: Fulfilled Yunior Berman MD [address] [place] [address],[address] [facility], [place], [phone], [facility] [facility] 12/23/2022 19:20:03 OBGyn Episode No OBEpisode recorded.
--- OUTSIDE RECORDS SUMMARY | 2024-10-14 17:37 | XMS_ITS | Encounter Summary ---
Author Organization [employer] Address [address] [facility] 7t [place] [address] Care Team Providers Care Brim Presser Name Role Phone Lupe Moralez Primary Care Provider [phone] Perry Quintero MD Unavailable Encounter Details Date Type Department Care Team ([facility] st Contact Info) Description 01/03/2023 Telephone [facility] [address] [place] [address] Lupe Moralez FNP [address] [place] [address] Social History Tobacco Use Types Packs/Day Years [...] - 01/09/2023 9:04 AM EDT T/c to [phone] to [facility] to inform below message from provider, No answer. LVM to call back [phone]. * Telephone Encounter - BE Chavez - 01/09/2023 7:41 AM EDT DME request for nebulizer generated. Thank you. * Telephone Encounter - Esthela Hidalgo - 01/03/2023 12:55 PM EDT Tc from [facility] from [facility] requesting a nebulizer machine . Any question please call phone # [phone] ext [phone]. Please fax order to [phone] documented in this encounter Plan of Treatment Upcoming Encounters Date Type Department Care Team (Late st Contact Info) Description 11/05/2024 1:45 PM EDT Office Visit [facility] [address] [place] [address] Lupe Moralez FNP [address] [place] [address] documented as of this encounter Visit Diagnoses Not on filedocumented in this encounter Additional Health Concerns Assessment Noted Time PHQ-9 Depression Total Score: 5 01/03/20 23 2:27 PM EDT documented as of this encounter Care Teams Brim Presser Relationship Specialty Start Date End Date Lupe Moralez FNP [address] [place] [address] PCP - General Family Medicine 04/16/22 Perry Quintero MD [address] [place] [address] Cardiology 06/14/24 documented as of this encounter
--- OUTSIDE RECORDS SUMMARY | 2024-10-14 17:37 | XMS_ITS | Encounter Summary ---
Author Organization [facility] [facility] Address [address] [facility] 7t [place] [address] Care Team Providers Care Manager Field Investigations Name Role Phone Lupe Moralez Primary Care Provider [phone] Perry Quintero MD Unavailable Reason for Visit * Reason Onset Date Comments ER Follow-up 01/27/2023 Encounter Details Date Type Department Care Team ([facility] st Contact Info) Description 01/27/2023 Telephone [facility] MED[facility]INE [address] [place] [address] Lupe Moralez FNP [address] [place], [place] [phone] ER Follow-up Social History Tobacco Use Types [...] - 01/28/2023 9:55 AM EDT T/C to [phone] for below message, pt. Is doing good. Pt. Schedule for ED follow up on 02/05/2023. Pt. Also advised to go to nearest ED in case of any new, return or worsening symptoms including CP, SOB or breathing problem. [facility] hours are reviewed. ED summery printed and scanned into pt's chart. * Telephone Encounter - Eleni Rahman - 01/27/2023 1:44 PM EDT Patient calling to report ED visit on 01/23/23 at [facility]. Seen for breathing trouble and asthma. Patient advised will forward to team nurse for follow up. Patient and daughter speaks croatian. documented in this encounter Plan of Treatment Upcoming Encounters Date Type Department Care Team (Late st Contact Info) Description 11/05/2024 1:45 PM EDT Office Visit [facility] [address] [place] [address] Lupe Moralez FNP [address] [place] [address] documented as of this encounter Visit Diagnoses Not on filedocumented in this encounter Additional Health Concerns Assessment Noted Time PHQ-9 Depression Total Score: 5 01/03/20 2:27 PM EDT documented as of this encounter Care Teams Manager Field Investigations Relationship Specialty Start Date End Date Lupe Moralez FNP [address] [place] [address] PCP - General Family Medicine 04/16/22 Perry Quintero MD [address] [place] [address] Cardiology 06/14/24 documented as of this encounter
--- OUTSIDE RECORDS SUMMARY | 2024-10-14 17:37 | XMS_ITS | Encounter Summary ---
Author Organization [employer] Address [address] [facility] 7[address] [place] [address] Care Team Providers Care Seconds Handler Name Role Phone Lupe Moralez Primary Care Provider [phone] Perry Quintero MD Unavailable Reason for Visit * Reason Onset Date Comments triage 12/23/2022 Encounter Details Date Type Department Care Team ([facility] st Contact Info) Description 12/23/2022 Telephone [facility] [address] [place] [address] Lupe Moralez FNP [address] [place], [place] [phone] triage Social History Tobacco Use Types Packs/Day [...] Triage call returned to patient Daughter via [employer] Foil Operator [phone]. Patient with onset of flu like symptoms [...] Wheezing The caller accepted this outcome speaks kinyarwanda documented in this encounter Plan of Treatment Upcoming Encounters Date Type Department Care Team ([facility] st Contact Info) Description 11/05/2024 1:45 PM EDT Office Visit [facility] [address] [place] [address] Lupe Moralez FNP [address] [place], [place] [phone] documented as of this encounter Visit Diagnoses Not on filedocumented in this encounter Care Teams Seconds Handler Relationship Specialty Start Date End Date Lupe Moralez FNP [address] [place] [address] PCP - General Family Medicine 04/16/22 Perry Quintero MD [address] [place] [address] Cardiology 06/14/24 documented as of this encounter
--- OUTSIDE RECORDS SUMMARY | 2024-10-14 17:37 | XMS_ITS | Clinical Summary ---
Author Organization [employer] Address [address] [place] [address] [address] [place] [address] Care Team Providers Care Production Expert Name Role Phone Lupe Moralez BE Primary Care Provider [phone] Perry Quintero MD Unavailable [phone] Allergies Active Allergy Reactions Criticality Noted Date Comments Penicillins Rash Low 04/16/2022 Medications Entresto 24-26 MG tablet TAKE 1 TABLET BY MOUTH TWICE DAILY IN THE MORNING AND IN THE EVENING 2022 Active Elastic Bandages & Supports (Cervical Collar Adjustable) miscIndications:Cervi aristeo paraspinal muscle spasm Use daily x 3w M62.838 1 each 2022 Active Diclofenac Sodium 1 % gelIndications:Cervic al paraspinal muscle spasm Use thin layer 3-4 times per day by topical route as needed to affected area for pain 100 g 3 2022 Active Blood Glucose Monitoring Suppl (FreeStyle [place] Lite) w/Device kitIndications:Type 2 diabetes mellitus without complication, without long-term current use of insulin ([facility]) USE DIRECTED 1 kit 2023 Active gabapentin (Neurontin) 600 MG tabletIndications:Tristian [...] tabletIndications:Hea rt failure with reduced ejection fraction ([facility]) TAKE 1 TABLET BY MOUTH EVERY [...] complication, without long-term current use of insulin ([facility]) TEST BLOOD SUGAR TWICE DAILY AND NEEDED 100 each 11 2023 Active gabapentin (Neurontin) 300 MG capsuleIndications:Ne uropathy TAKE 1 CAPSULE BY MOUTH EVERYDAY AT NOON 90 capsule 1 2023 Active albuterol (Ventolin HFA) 108 (90 Base) MCG/ACT inhalerIndications:Sh ortness of breath Inhale 2 puffs Every 4-6 hours as needed for wheezing or shortness of breath. 18 g 11 2023 Active metFORMIN (Glucophage) 500 MG tabletIndications:Typ e 2 diabetes mellitus without complication, without long-term current use of insulin ([facility]) TAKE 1 TABLET BY MOUTH TWICE [...] for muscle spasms. 30 tablet 08/27 Active traZODone (Desyrel) 50 MG tabletIndications:Sle ep [...] bedtime (pain). 30 g 2 2024 Active Lidocaine 4 % patch Apply topically. Active Melatonin 2.5 MG chewable tablet Chew. Take 1 to 2 gummies prn at bedtime Active Acetaminophen Extra Strength 500 MG tabletIndications:Madiha n TAKE 1 TABLET BY MOUTH EVERY 6 HOURS NEEDED FOR PAIN 40 tablet 1 09/29 Discontinued( Med list cleanup (will not trigger notification to Pharmacy)) lidocaine (Lidoderm) 5 % patch APPLY 1 PATCH TOPICALLY TO SKIN, LEAVE ON FOR 12 HOURS AND OFF FOR 12 HOURS DIRECTED NEEDED FOR PAIN 30 patch 11 09/29 Discontinued( Med list cleanup (will not trigger notification to Pharmacy)) Ciclopirox 0.77 % gel APPLY TOPICALLY ONCE DAILY 09/29 Discontinued( Med list cleanup (will not trigger notification to Pharmacy)) melatonin 5 MG tablet TAKE 2 TABLETS BY MOUTH AT BEDTIME NEEDED 09/29 Discontinued( Med list cleanup (will not trigger notification to Pharmacy)) clotrimazole (Lotrimin) 1 % cream APPLY TOPICALLY TO SKIN AND TOENAILS ONCE DAILY FOR 12 WEEKS 09/29 Discontinued( Med list cleanup (will not trigger notification to Pharmacy)) ammonium lactate (Lac-Hydrin) 12 % lotion APLICAR A LA PLANTA DEL PIE A DIARIO. USE CALZETINES A LA HORA DE ACOSTARSE. 09/29 Discontinued( Med list cleanup (will not trigger notification to Pharmacy)) lidocaine-prilocaine (Emla) 2.5-2.5 % creamIndications:Cerv ical paraspinal muscle spasm Apply thin layer to affected skin by topical route twice daily as needed for pain / neuropathy 30 g 11 09/29 Discontinued( Med list cleanup (will not trigger notification to Pharmacy)) albuterol (2.5 MG/3ML) 0.083% nebulizer solutionIndications:S hortness of breath Take 3 mL (2.5 mg) by nebulization every 6 (six) hours if needed for wheezing. 75 mL 11 09/29 Discontinued( Med list cleanup (will not trigger notification to Pharmacy)) atorvastatin (Lipitor) 40 MG tablet Take 1 tablet (40 mg) by mouth at bedtime. 90 tablet 3 09/22 Discontinued levothyroxine (Synthroid, Levoxyl) 88 MCG tabletIndications:Hyp othyroidism, unspecified type Take 1 tablet (88 mcg) by mouth in the morning. 90 tablet 3 09/22 Discontinued fluticasone (Flonase) 50 MCG/ACT nasal spray Administer 1 spray into each nostril Once per day. 16 g 2 09/29 Discontinued( Med list cleanup (will not trigger notification to Pharmacy)) traZODone (Desyrel) 50 MG tabletIndications:Sle ep difficulties TAKE 1/2 TO 1 TABLET BY MOUTH AT BEDTIME NEEDED FOR SLEEP 30 tablet 3 09/17 Discontinued predniSONE (Deltasone) 20 MG tabletIndications:Gou t involving toe of right foot, unspecified cause, unspecified chronicity 2 tabs po daily for 5 days 10 tablet 09/29 Discontinued( Med list cleanup (will not trigger notification to Pharmacy)) Blood Pressure kitIndications:Heart failure with reduced ejection fraction ([facility]) Please use to check blood pressure as directed. Please fit to patient. Thank you. 1 kit 09/24 Discontinued( Reorder (will not trigger notification to Pharmacy)) fluconazole (Diflucan) 150 MG tablet Take 1 tablet (150 mg) by mouth 1 (one) time per week for 14 days. 2 tablet 10/13 Active Problems Problem Noted Date Diagnosed Date [...] in differential. Risk factors: AC Seen in [place] on 09/09/24 and had Hgb of 4.9. Recieved transfusion of about 6 units of blood on 09/11/24. Records requested from [place], available lab work reviewed and sent to scan. Consult with [facility] Heme/Onc 09/21/2024, scheduled with [facility] GI 10/07/2024 Shared decision making to start p.o. iron supplement. Follow-up with any side effects. ED precautions reviewed Assessment & Plan (09/17/2024 7:57 PM EST): Etiology unknown - GIB in differential. Risk factors: AC Seen in [place] on 09/09/24 and had Hgb of 4.9. Recieved transfusion of about 6 units of blood on 09/11/24. Records requested from [place], available lab work reviewed and sent to scan. Referral to [facility]e/Onc and [facility] for further eval ED precautions reviewed Assessment & Plan (09/16/2024 1:49 PM EST): Etiology unknown. Seen in [place] on 09/09/24 and had Hgb of 4. Got transfusion of about 6 units of blood on 09/11/24. Requesting records from [place]. -ordered CBC -has follow-up tomorrow. Spasm of [...] of updated referral. Previous location: [facility] with [facility]. Referral to [facility] Audiology placed 02/13/24 Also in need of [...] 10-15% on 11/21/23 11/25/23: ICD Implant at [facility] with Dr. Jacob 12/23/23: EF improved [...] of ostial RCA Severe aortic stenosis 05/13/2023 Stage 3a chronic kidney disease 04/30/2023 05/13/2023 Assessment & Plan (12/08/2023 7:19 AM EDT): Followed by [facility] (Dr. José Miguel Mojica) Gastroesophageal reflux disease 02/27/2023 Overview (02/27/2023): -Pt reports med has been helpful for symptom control -Switch from omeprazole to pantoprazole as less med interaction with plavix Assessment & Plan (02/27/2023 12:54 PM EDT): -Increase to pantoprazole 20-40mg daily -Reports previous eval with [place] appro[place] 2 years with rec for follow [...] Plan (10/07/2023 4:40 PM EST): [facility] & Dr. Brennan [...] (06/14/2023 12:10 PM EST): ?? [facility] Qu[facility] & Dr. Brennan [...] (02/27/2023 12:54 PM EDT): ?? [facility] ?? Cardiac stent placement on 12/17/16 ?? Current cardiac regimen: ?? carvedilol 12.5mg BID ?? DC December 2022 ?? Entresto 24-26mg BID ?? furosemide 20mg daily ?? spironolactone 25mg daily. ?? Antiplatelet - clopidogrel 75 mg daily ?? Statin - simvastatin 20mg nightly Denies chest pain, SOB, palpitations, N/V/D. Assessment & Plan (01/05/2023 3:36 PM EDT): ?? Followed by [facility] Dr. Quintero ?? Cardiac stent placement on [...] Exam: established with ophthalmology -Dental: referral to [facility] Dental 09/05/23 -Monofilament: abnormal on [...] Exam: established with ophthalmology -Dental: referral to [facility] Dental 09/05/23 -Monofilament: abnormal on [...] Exam: established with ophthalmology -Dental: referral to [facility] Dental 09/05/23 -Monofilament: abnormal on [...] Exam: established with ophthalmology -Dental: referral to [facility] Dental 09/05/23 -Monofilament: abnormal on [...] Exam: established with ophthalmology -Dental: referral to [facility] Dental 09/05/23 -Monofilament: abnormal on [...] Exam: established with ophthalmology -Dental: referral to [facility] Dental 09/05/23 -Monofilament: abnormal on [...] Exam: established with ophthalmology -Dental: referral to [facility] Dental 09/05/23 -Monofilament: abnormal on [...] Plan (07/29/2022 7:55 PM EST): -Following with [facility] Sleep Medicine Resolved Problems Problem Noted Date Diagnosed Date Resolved Date Chest wall contusion, left, initial encounter 06/06/20 23 06/14/2023 Assessment & Plan (06/06/2023 1:49 PM EDT): Recommended diclofenac gel, tylenol and heat to effected area I will prescribe incentive spirometer to prevent atelectasis. Use albuterol q4h Hospital discharge follow-up 05/19/2023 06/14/2023 Assessment & Plan (05/19/2023 8:19 PM EDT): Patient was hospitalized at [facility] from 10-3 to 10-4 due to chronic [...] Encounters Date Type Department Care Team Description 10/01/2024 Telephone [facility] [address] [place], [place] [phone] Lupe Moralez FNP Results 09/29/2024 3:40 PM EST Office Visit [facility] [address] [place], [place] [phone] Georgie Cleary MD Candidal vaginitis (Primary Dx); Dysuria 09/27/2024 Telephone [facility] [address] [place], [place] [phone] Lupe Moralez FNP Durable Medical Equipment 09/27/2024 Telephone [facility] [address], [place] [phone] Lupe Moralez FNP Durable Medical Equipment 09/24/2024 1:45 PM EST Office Visit [facility] [address] [place] [address] Lupe Moralez FNP Heart failure with reduced ejection fraction (CMS/HCC) (Primary Dx); Cervical paraspinal muscle spasm; Dietary counseling; Exercise counseling; Osteoarthritis of first metatarsophalangeal (MTP) joint of right foot; Type 2 diabetes mellitus without complication, without long-term current use of insulin (CMS/HCC); Anemia, unspecified type 09/24/2024 Travel 09/23/2024 Telephone [facility] [address] [place] [address] Bibi Correa MA Chart Prep 09/21/2024 Refill [facility] [address] [place] [address] Lupe Moralez FNP Hypothyroidism, unspecified type 09/17/2024 1:45 PM EST Office Visit [facility] [address] [place] [address] Lupe Moralez FNP Anemia, unspecified type (Primary Dx); Type 2 diabetes mellitus without complication, without long-term current use of insulin ([facility]/HCC); Screening for colon cancer; Heart failure with reduced ejection fraction (CMS/HCC); Acute gout involving toe of right foot, unspecified cause 09/17/2024 Travel 09/17/2024 Refill [facility] [address] [place] [phone] Lupe Moralez FNP Sleep difficulties 09/16/2024 2:00 PM EST Office Visit [facility] [address] [place] [phone] Bernice Lamb MD Gout involving toe of right foot, unspecified cause, unspecified chronicity (Primary Dx); Anemia, unspecified type 09/16/2024 Orders Only [facility] [address] [place] [address] Lupe Moralez FNP 08/27/2024 11:00 AM EST Office Visit [facility] [address] [place] [phone] Bernice Lamb MD Cervical paraspinal muscle spasm (Primary Dx); Spasm of muscle of lower back; Spasm of muscle of lower back 08/24/2024 Telephone [facility] [address] [place] [address] Lupe Moralez, LAUNDRY BAG PUNCH OPERATOR Medication Question 08/21/2024 Refill [facility] [address] [place] [address] Lupe Moralez, LAUNDRY BAG PUNCH OPERATOR 08/16/2024 Telephone [facility] [address] [place] [address] Phalraji Lupe, LAUNDRY BAG PUNCH OPERATOR Med Refill 08/10/2024 Telephone [facility] [address] [place] [address] Lupe Moralez, LAUNDRY BAG PUNCH OPERATOR Medication Question; Med Refill 07/29/2024 Refill [facility] [address] [place] [address] Lupe Moralez, LAUNDRY BAG PUNCH OPERATOR 07/17/2024 Refill [facility] [address] [place] [address] Lupe Moralez, LAUNDRY BAG PUNCH OPERATOR from Last 3 Months Immunizations Name [...] Mass Index 34.65 09/29/2024 3:11 PM EST Plan of Treatment Upcoming Encounters Date Type Department Care Team (Late st Contact Info) Description 11/05/2024 1:45 PM EDT Office Visit [facility] [address] [place] [address] Lupe Moralez, LAUNDRY BAG PUNCH OPERATOR [address] [place] [address] Health Maintenance Due Date Last Done Comments [...] 11/01/2022, Additional history exists COVID-19 Vaccine ( - season) 2025 07/03/2021, 10/24/2020, 10/02/2020 Postponed from [...] DIPSTICK Routine 09/29/2024 3:13 PM EST Dysuria XR FOOT 3+ VIEWS RIGHT Routine 09/23/2024 1:38 PM EST Acute gout involving toe of right foot, unspecified cause CBC WITH AUTO DIFFERENTIAL Routine 09/23/2024 1:24 PM EST Anemia, unspecified type LAB COLOGUARD?? COLON CANCER SCREEN Routine 09/23/2024 11:20 AM EST Anemia, unspecified type Screening for colon cancer POCT GLYCATED HEMOGLOBIN, TOTAL Routine 09/17/2024 2:07 PM EST Type 2 diabetes mellitus without complication, without long-term current use of insulin ([facility]/HCC) POCT GLUCOSE Routine 09/17/2024 2:02 PM EST Type 2 diabetes mellitus without complication, without long-term current use of insulin (CMS/HCC) SLIDE REVIEW Routine 09/16/2024 1:56 PM EST [...] complication, without long-term current use of insulin ([facility]) Healthcare maintenance LIPID PANEL, STANDARD Routine 06/14/2024 12:51 PM EST Type 2 diabetes mellitus without complication, without long-term current use of insulin ([facility]) Healthcare maintenance INTRAORAL - COMPLETE SERIES OF RADIOGRAPHIC IMAGES Routine 02/18/2024 2:00 PM EDT from Last 3 Months or Most Recently Relevant to Health Maintenance Results * POCT urinalysis dipstick manually resulted [...] Date Urine 09/29/2024 3:13 PM EST Georgie Madiha MD POINT OF CARE TEST ENTER/EDIT OR DERABLES Final Result * XR Foot 3+ Views Right (09/23/2024 1:38 PM EST) Anatomical Region Laterality Modality Lower Extremities, Foot Right Radiogra phic Imaging 09/23/2024 1:38 PM EST Narrative 09/23/2024 2:02 PM EST ? [facility] ?[address] ?[place] [address] ?XRay Report ? Signed ? Patient: Fajardo Hines,Charleen ?MR#: MM ?? [id number] ? : 1945 ?Acct:[id number] ? Age/Sex: 79 / F ?ADM Date: 09/23/24 ? Loc: HO.HHCL ? Attending Dr: Lupe Moralez LAUNDRY BAG PUNCH OPERATOR ? Ordering Physician: Lupe Moralez ?? Date of Service: 09/23/24 ?? Procedure(s): XR foot RT min 3V ?? Accession Number(s): [id number] ? cc: Lupe Moralez LAUNDRY BAG PUNCH OPERATOR ? EXAMINATION: ?? XR FOOT, RIGHT ? [...] DD/ 1338 ? TD/TT: 09/23/24 1351 ? Vehicle Damage Appraiser: ? Procedure Note Donotuseinterpreter, Image - 09/23/[address] [address] XRay Report Signed Patient: Umberto Gallo#: [id number] : 5Acct:[id number] Age/Sex: 79 / FADM Date: 09/23/24 Loc: HO.HHCL Attending Dr: Lupe LR Ordering Physician: Lupe Moraelz Date of Service: 09/23/24 Procedure(s): XR foot RT min 3V Accession Number(s): [id number] cc: Lupe Moralez EXAMINATION: XR FOOT, RIGHT [...] 09/23/24 1400 DD/ 1338 TD/TT: 09/23/24 1351 Vehicle Damage Appraiser: Lupe MACP IMG XR PROCEDURES Final Result * (ABNORMAL) CBC auto differential (09/23/2024 1:24 PM EST) Only the most recent of2 resultswithin the time period is included. White Blood Count 10.1 4.8 - 10.8 X10*3/uL [facility] Red Blood Count 3.92(L) 4.20 - 5.50 X10*6/uL [facility] Hemoglobin 10.7(L) 12.0 - 16.0 g/dl [facility] Hematocrit 35.3(L) 37.0 - 47.0 % [facility] Mean Corpuscular Volume 90.1 80.0 - 98.0 fL [facility] Mean Corpuscular Hemoglobin 27.3 27.0 - 33.0 pg [facility] Mean Corpuscular HGB Conc 30.3(L) 31.0 - 35.0 g/dl [facility] Red Cell Distribution Width 15.1 11.0 - 16.0 % [facility] Platelet Count 406(H) 160 - 400 X10*3/uL [facility] Mean Platelet Volume 10.9 9.4 - 12.3 fL [facility] Neutrophils Percent Auto 72.9 45 - 73 % [facility] Imm Gran Pct Auto 0.6(H) 0.0 - 0.4 % [facility] Lymphocytes Percent Auto 18.5(L) 20 - 40 % [facility] Monocytes Percent Auto 5.5 2 - 11 % [facility] Eosinophils Percent Auto 2.0 0 - 4 % [facility] Basophils Percent Auto 0.5 0 - 2 % [facility] NRBC Pct Auto 0.0 0.0 - 0.2 /100WBC [facility] Neutrophils Absolute Auto 7.4 2.0 - 8.3 x10*3/uL [facility] Imm Gran Abs Auto 0.06(H) 0.00 - 0.03 X10*3/uL [facility] Lymphocytes Absolute Auto 1.9 1.2 - 4.9 X10*3/uL [facility] Monocytes Absolute Auto 0.6 0.1 - 1.2 X10*3/uL [facility] Eosinophils Absolute Auto 0.2 0.0 - 0.4 X10*3/uL [facility] Basophils Absolute Auto 0.1 0.0 - 0.2 X10*3/uL [facility] NRBC Abs Auto 0.000 0.0 - 0.012 X10*3/uL [facility] Blood Venous blood specimen / Unknown 09/23/2024 1:24 PM EST 09/23/2024 4:13 PM EST us Lupe Moralez LAUNDRY BAG PUNCH OPERATOR LAB BLOOD ORDERABLES Final Res ult [facility] [address] [place] [phone] * Cologuard?? colon cancer screening (09/23/2024 11:20 AM EST) Cologuard Result Negative Negative 09/30/19 11:49 AM EST [facility] (CLIA #:[id number]) Comment: NEGATIVE TEST RESULT. A negative Cologuard result indicates a low likelihood that a colorectal cancer (CRC) or advanced adenoma (adenomatous polyps with more advanced pre-malignant features) ??is present. The chance that a person with a negative Cologuard test has a colorectal cancer is less than 1 in 1500 (negative predictive value >99.9%) or has an ??advanced adenoma is less than ??5.3% (negative predictive value 94.7%). These data are based on a prospective cross-sectional study of 10,000 individuals at average risk for colorectal cancer who were screened with both Cologuard and colonoscopy. (Sudhakar Perez et al, N Engl J Med 2014;370(14):1286- 1297) The normal value (reference range) for this assay is negative. COLOGUARD RE-SCREENING RECOMMENDATION: Periodic colorectal cancer screening is an important part of preventive healthcare for asymptomatic individuals at average risk for colorectal cancer. ??Following a negative Cologuard result, the [place] [employer] and U.S. Multi-Society Task Force screening guidelines recommend a Cologuard re-screening interval of 3 years. References: [place] [employer] Guideline for Colorectal Cancer Screening: https://www.cancer.org/cancer/bahkc-mlayyh-qnocxh/hcrqonufj-nnnreiocb-lgctyka/ac s-rec ommendations.html.; Elvis ALBRIHGT, Parker CR, Ana Rosa WattsK, Colorectal Cancer Screening: Recommendations for Physicians and Patients from the U.S. Multi-Society Task Force on Colorectal Cancer Screening , Am J Gastroenterology 2017; 112:1385-1632. TEST DESCRIPTION: Composite algorithmic analysis of stool DNA-biomarkers with hemoglobin immunoassay. ?? Quantitative values of individual biomarkers are not reportable and are not associated with individual biomarker result reference ranges. Cologuard is intended for colorectal cancer screening of adults of either sex, 45 years or older, who are at average-risk for colorectal cancer (CRC). Cologuard has been approved for use by the U.S. FDA. The performance of Cologuard was established in a cross sectional study of average-risk adults aged 50-84. Cologuard performance in patients ages 45 to 49 years was estimated by sub-group analysis of near-age groups. Colonoscopies performed for a positive result may find as the most clinically significant lesion: colorectal cancer [4.0%], advanced adenoma (including sessile serrated polyps greater than or equal to 1cm diameter) [20%] or non- advanced adenoma [31%]; or no colorectal neoplasia [45%]. These estimates are derived from a prospective cross-sectional screening study of 10,000 individuals at average risk for colorectal cancer who were screened with both Cologuard and colonoscopy. (Sudhakar Grimaldo al, N Engl J Med 2014;370(14):3538-7974.) Cologuard may produce a false negative or false positive result (no colorectal cancer or precancerous polyp present at colonoscopy follow up). A negative Cologuard test result does not guarantee the absence of CRC or advanced adenoma (pre-cancer). The current Cologuard screening interval is every 3 years. ([place] [employer] and U.S. Multi-Society Task Force). Cologuard performance data in a 10,000 patient pivotal study using colonoscopy as the reference method can be accessed at the following location: www.[employer]/results. Additional description of the Cologuard test process, warnings and precautions can be found at www.[employer]. Stool specimen (specimen) 09/23/2024 11:20 AM EST 09/24/2024 10:59 AM EST [facility] LAB MOLECULAR DIAGNOSTICS ORDE RABLES Final Result [facility] (CLIA #:[id number]) [place] [address], * (ABNORMAL) POCT HGB A1C (09/17/2024 2:07 PM EST) Pathologist [facility] Hemoglobin A1C 6.9(A) 4.0 - 6.0 % QC Media Lot # [id number] Lot# Expiration Date Blood 09/17/2024 2:07 PM EST [facility] POINT OF CARE TEST ENTER/EDIT ORDERABLES Final Result * (ABNORMAL) POCT Glucose (09/17/2024 2:02 PM EST) Pathologist [facility] Glucose Blood, POC 301(A) 60 - 200 mg/dL QC Media Lot # [id number] Lot# Expiration Date ,025 Blood Capillary blood specimen / Unknown 09/17/2024 2:02 PM EST [facility] POINT OF CARE TEST ENTER/EDIT ORDERABLES Final Result * Slide Review (09/16/2024 1:56 PM EST) Slide Review VERIFIED [facility] 09/16/2024 1:56 PM EST 09/16/2024 4:02 PM EST [facility] LAB BLOOD ORDERABLES Final Res ult [facility] [address] [place] [phone] * Vitamin D, 25-Hydroxy, Total, Immunoassay (09/16/2024 1:56 PM EST) Vitamin D 25-OH Total 53.0 >30 ng/mL [facility] Comment:Health Based Referen ce Values*< 20 ng/mL Ktyrdmnxo10-08 ng/mL Insufficient> 30 ng/mL Sufficient*Daja LUNDBERG. N [...] EST 09/16/2024 3:58 PM EST Lupe Moralez [facility] LAB BLOOD ORDERABLES Final Res ult Performing Organization Address [facility] Co de Phone Number [facility] [address] [place] [phone] * (ABNORMAL) Iron And Total Iron Binding Capacity (09/16/2024 1:56 PM EST) Iron 20(L) 30 - 160 mcg/dL [facility] Total Iron Binding Capacity 258 228 - 428 mcg/dL [facility] Percent Iron Saturation 8(L) 15 - 50 % [facility] Unsaturated Iron Binding 238 ug/dL [facility] Blood Venous blood specimen / Unknown 09/16/2024 1:56 PM EST 09/16/2024 4:02 PM EST Lupe Moralez [facility] LAB BLOOD ORDERABLES Final Res ult Performing Organization Address [facility]/ZIP Co de Phone Number [facility] [address] [place] [phone] * (ABNORMAL) Reticulocyte Count (09/16/2024 1:56 PM EST) Reticulocytes Absolute 0.080 0.026 - 0.095 X10*6/uL [facility] Immature Retic Fraction 25.5(H) 3.0 - 15.9 % [facility] Retic HGB Equivalent 24.3(L) 30.0 - 35.0 pg [facility] Reticulocyte Percent 2.2(H) 0.5 - 1.8 % [facility] Blood Venous blood specimen / Unknown 09/16/2024 1:56 PM EST 09/16/2024 4:02 PM EST Lupe Moralez [facility] LAB BLOOD ORDERABLES Final Res ult Performing Organization Address [facility] Co de Phone Number [facility] [address] [place] [phone] * (ABNORMAL) Uric acid (09/16/2024 1:56 PM EST) Uric Acid 5.9(H) 2.4 - 5.7 mg/dL [facility] Blood Venous blood specimen / Unknown 09/16/2024 1:56 PM EST 09/16/2024 4:02 PM EST Bernice Lamb MD LAB BLOOD ORDERABLES Final Result Performing Organization Address [facility]/ZIP Co de Phone Number [facility] [address] [place] [phone] * Ferritin (09/16/2024 1:56 PM EST) Ferritin 53 10 - 250 ng/mL [facility] Blood Venous blood specimen / Unknown 09/16/2024 1:56 PM EST 09/16/2024 3:58 PM EST Lupe Moralez [employer] LAB BLOOD ORDERABLES Final Res ult Performing Organization Address City/[facility]/ZIP Co de Phone Number [facility] [address] [place] [phone] [phone] * Albumin, Random Urine W/Creatinine (06/14/2024 12:58 PM EST) Creatinine, Urine 54.88 mg/dL [facility] Microalbumin Urine <5.0 mg/L [facility] Microalbum Creatinine Ratio Ur TNP <30 ug/mg cr [facility] Comment:Unable to calculate albumin/creatinine ratio due to lowmicroalbumin or creatinine result. Urine 06/14/2024 12:5 8 PM EST 06/14/2024 2:08 PM EST Lupe Moralez [employer] LAB URINE ORDERABLES Final Res ult Performing Organization Address [facility] Co de Phone Number [facility] [address] [place] [phone] * (ABNORMAL) Lipid Panel, Standard (06/14/2024 12:51 PM EST) Triglycerides 167(H) <150 mg/dL [facility] Comment:Desirable Triglyceri de: less than 150 mg/dLBorderline High Triglyceride 150-199 mg/dLHigh Triglyceride: 200-499 mg/dLVery High Triglyceride: greater than or equal to 5OO mg/dL Cholesterol 112 <200 mg/dL [facility] Comment:Desirable Cholestero l: less than 200 mg/dLBorderline High Cholesterol: 200-239 mg/dLHigh Cholesterol: greater than 239 mg/dL LDL Cholesterol Calculated 41 <100 mg/dL [facility] Comment:Desirable LDL: less than 100 mg/dLNear Optimal/Above Optimal LDL: 110- 129 mg/dLBorderline High LDL: 130-159 mg/dLHigh LDL: 160-189 mg/dLVery High LDL: greater than or equal to 190 mg/dL HDL Cholesterol 38(L) >40 mg/dL [facility] Comment:Desirable HDL: great er than 40 mg/dL Note: This HDL assay may give artificially low results in patients with liver disease. Blood Venous blood specimen / Unknown 06/14/2024 12:51 PM EST 06/14/2024 2:03 PM EST Lupe Clarissaraji [employer] LAB BLOOD ORDERABLES Final Res ult [facility] [address] [place] [phone] from Last 3 Months or Most Recently Relevant to Health Maintenance Insurance [facility] [employer] C/[employer] - [facility] Care Teams Production Expert Relationship Specialty Start Date End Date Lupe Moralez FNP [address] [place] [address] PCP - General Family Medicine 04/16/22 Perry Quintero MD [address] [place] [phone] Cardiology 06/14/24
--- OUTSIDE RECORDS SUMMARY | 2024-10-14 17:38 | XMS_ITS | Encounter Summary ---
Author Organization [employer] Address [address] [facility] [address] [place] [address] Care Team Providers Care Sales Representative Trainee Name Role Phone Lupe Moralez Primary Care Provider [phone] Perry Quintero MD Unavailable [phone] Reason for Visit * Reason Comments Med Refill Encounter Details Date Type Department Care Team ([facility] st Contact Info) Description 09/21/2024 Refill [facility] [address] [place], [place] [phone] Lupe Moralez FNP [address] [place] [address] Hypothyroidism, unspecified type Social History Tobacco Use [...] AM EST Rx generated and faxed to [facility] with pcp Notes ----- Message from [...] Description 11/05/2024 1:45 PM EDT Office Visit [facility] [address] [place] [address] Lupe Moralez FNP [address] [place] [address] documented as of this encounter Visit Diagnoses Diagnosis Hypothyroidism, unspecified type documented in this encounter Additional Health Concerns Assessment Noted Time PHQ-9 Depression Total Score: 4 02/09/20 10:42 AM EDT documented as of this encounter Care Teams Sales Representative Trainee Relationship Specialty Start Date End Date Lupe Moralez FNP [address] [place] [address] PCP - General Family Medicine 04/16/22 Perry Quintero MD [address] [place] [phone] Cardiology 06/14/24 documented as of this encounter
--- OUTSIDE RECORDS SUMMARY | 2024-10-14 17:38 | XMS_ITS | Encounter Summary ---
Author Organization [employer] Address [address] [facility] [address] [place] [address] Care Team Providers Care Bus Boy Name Role Phone Lupe Moralez BE Primary Care Provider [phone] Perry Quintero MD Unavailable [phone] Reason for Visit * Reason Onset Date Comments Chart Prep 09/23/2024 Encounter Details Date Type Department Care Team ([facility] st Contact Info) Description 09/23/2024 Telephone [facility] [address] [place] [address] Bibi Correa MA Chart Prep Social History [...] 1:45 PM EDT Office Visit [facility] [address] [place] [address] Lupe Moralez FNP [address] [place] [address] documented as of this encounter Visit Diagnoses Not on filedocumented in this encounter Additional Health Concerns Assessment Noted Time PHQ-9 Depression Total Score: 4 02/09/20 24 10:42 AM EDT documented as of this encounter Care Teams Bus Boy Relationship Specialty Start Date End Date Lupe Moralez FNP [address] [place] [address] PCP - General Family Medicine 04/16/22 Perry Quintero MD [address] [place] [address] Cardiology 06/14/24 documented as of this encounter
--- OUTSIDE RECORDS SUMMARY | 2024-10-14 17:38 | XMS_ITS | Encounter Summary ---
Author Organization [employer] Address [address] [place] [address] [address] [place] [address] Care Team Providers Care Flight/Transport Nurse Name Role Phone Lupe Moralez BE Primary Care Provider [phone] Perry Quintero MD Unavailable [phone] Encounter Details Date Type Department Care Team ([facility] st Contact Info) Description 07/24/2022 Orders Only [facility] [address] [place] [address] Aislinn Valle LPN Social History Tobacco Use [...] bactrim, however pt [place] [facility] [place] days later d/t HUSEYIN. documented in this encounter Plan of Treatment Upcoming Encounters Date Type Department Care Team (Late st Contact Info) Description 11/05/2024 1:45 PM EDT Office Visit [facility] [address] [place] [address] Naomy Lupe, PATTERN REPAIR PERSON [address] [place] [address] documented as of this encounter Procedures Procedure [...] 4:03 PM EDT 06/03/2023 6:38 PM EDT Comment:[facility] Narrative [facility] - 06/05/2023 12:49 PM EDT Urine Culture Report Result Urine Culture < 10,000 cfu/ml Specimen Source: Urine clean catch Yg Reyes MD LAB MICROBIOLOGY - GENERAL ORDER CASIMIRO Final Result [facility] [address] [place] [phone] * Lactic Acid (03/15/2023 6:29 PM EDT) Lactic Acid 1.2 0.5 - 2.0 mmol/L [facility] 03/15/2023 6:29 PM EDT 03/15/2023 6:32 PM EDT [facility] External Provider LAB BLO OD ORDERABLES Final Result [facility] [address] [place] [phone] * Lipase (03/15/2023 3:34 PM EDT) Lipase 22 8 - 78 U/L [facility] 03/15/2023 3:34 PM EDT 03/15/2023 3:41 PM EDT us Generic External Data Provider LAB BLOOD ORDERAB LES Final Result [facility] [address] [place] [address] [phone] * (ABNORMAL) Comprehensive Metabolic Panel (03/15/2023 3:34 PM EDT) Sodium 137 135 - 145 mmol/L [facility] Potassium 4.7 3.3 - 5.1 mmol/L [facility] Chloride 102 96 - 108 mmol/L [facility] Carbon Dioxide 23 22 - 29 mmol/L [facility] Anion Gap 17 12 - 20 [facility] Urea Nitrogen (BUN) 32(H) 9 - 16 mg/dL [facility] Creatinine, Serum 1.83(H) 0.5 - 1.4 mg/dL [facility] Creatinine Clr Calc Pharmacy 27.9 [facility] Comment:Provided height and weight: 162.56 cm,92.533 kg.eGFR (calculated from the MDRD study equation) and eCrCl(calculated from the Cockcroft-Gault equation) are based ondifferent parameters and may not yield comparable results.If eCrCl result is absurd, please check patient'sheight/weight. Estimated Glomerular Filt Rate 27 [facility] Comment:NOTE: For -Am erican individuals, multiply the result by 1.210.Chronic Kidney Disease: Estimated GFR < 60 mL/min/[id number] Kidney Disease: Estimated GFR < 15 mL/min/1.73m2 Glucose 254(H) 60 - 115 mg/dL [facility] Calcium 9.8 8.4 - 10.2 mg/dL [facility] Bilirubin, Total 0.4 0.0 - 1.0 mg/dL [facility] Aspartate Amino Transferase 17 5 - 31 U/L [facility] Alanine Aminotransferase 12 0 - 31 U/L [facility] Total Protein 7.5 6.5 - 8.0 g/dL [facility] Albumin Level 4.3 3.5 - 5.0 g/dL [facility] Alkaline Phosphatase 72 39 - 117 U/L [facility] 03/15/2023 3:34 PM EDT 03/15/2023 3:41 PM EDT [facility] External Provider LAB BLO OD ORDERABLES Final Result Performing Organization Address [facility] Co de Phone Number [facility] [address] [place] [phone] * (ABNORMAL) Lactic Acid (03/15/2023 3:34 PM EDT) Lactic Acid 2.6(HH) 0.5 - 2.0 mmol/L [facility] Comment:Critical value for t est(s):LACTA Results called to anny back by:TAE Person calling:EDWARD Date:03/15/23Time:1610 03/15/2023 3:34 PM EDT 03/15/2023 3:41 PM EDT [facility] External Provider LAB BLO OD ORDERABLES Final Result Performing Organization Address [facility] de Phone Number [facility] [address] [place] [phone] * (ABNORMAL) Urinalysis, Complete, with Reflex to Culture (03/15/2023 3:34 PM EDT) Color Urine Yellow [facility] Appearance Urine Clear [facility] PH 7.0 5.0 - 9.0 [facility] Glucose Urine UA >=1000(A) Negative mg/dL [facility] Urine Blood Large (3+)(A) Negative [facility] Specific [place] - Urine 1.020 1.005 - 1.025 [facility] Urine Protein Negative Neg-Trace mg/dL [facility] Urine Ketones Negative Negative mg/dL [facility] Nitrite Urine Negative Negative [facility] Leukocyte Esterase Urine Negative Negative [facility] RBC Urine >20(A) 0 - 2 /HPF [facility] Urine WBC 0-5 0 - 5 /HPF [facility] Urine Squamous Epithelial Cell 0-2 0 - 2 /HPF [facility] Urine Bacteria None Seen None Seen [facility] Hyaline Casts, Urine 0-2 0 - 2 /LPF [facility] 03/15/2023 3:34 PM EDT 03/15/2023 3:41 PM EDT Narrative [facility] - 03/15/2023 4:19 PM EDT [id number], Clean Catch us [facility] External Provider LAB URI NE ORDERABLES Final Result [facility] [address] [place] [address] [phone] * (ABNORMAL) CBC auto differential (03/15/2023 3:34 PM EDT) White Blood Count 7.2 4.8 - 10.8 X10*3/uL [facility] Red Blood Count 3.64(L) 4.20 - 5.50 X10*6/uL [facility] Hemoglobin 11.7(L) 12.0 - 16.0 g/dl [facility] Hematocrit 35.1(L) 37.0 - 47.0 % [facility] Mean Corpuscular Volume 96.4 80.0 - 98.0 fL [facility] Mean Corpuscular Hemoglobin 32.1 27.0 - 33.0 pg [facility] Mean Corpuscular HGB Conc 33.3 31.0 - 35.0 g/dl [facility] Red Cell Distribution Width 11.9 11.0 - 16.0 % [facility] Platelet Count 246 160 - 400 X10*3/uL [facility] Mean Platelet Volume 10.3 9.4 - 12.3 fL [facility] Neutrophils Percent Auto 66.7 45 - 73 % [facility] Imm Gran Pct Auto 0.4 0.0 - 0.4 % [facility] Lymphocytes Percent Auto 22.0 20 - 40 % [facility] Monocytes Percent Auto 6.4 2 - 11 % [facility] Eosinophils Percent Auto 4.1(H) 0 - 4 % [facility] Basophils Percent Auto 0.4 0 - 2 % [facility] NRBC Pct Auto 0.0 0.0 - 0.2 /100WBC [facility] Neutrophils Absolute Auto 4.8 2.0 - 8.3 x10*3/uL [facility] Imm Gran Abs Auto 0.03 0.00 - 0.03 X10*3/uL [facility] Lymphocytes Absolute Auto 1.6 1.2 - 4.9 X10*3/uL [facility] Monocytes Absolute Auto 0.5 0.1 - 1.2 X10*3/uL [facility] Eosinophils Absolute Auto 0.3 0.0 - 0.4 X10*3/uL [facility] Basophils Absolute Auto 0.0 0.0 - 0.2 X10*3/uL [facility] NRBC Abs Auto 0.000 0.0 - 0.012 X10*3/uL [facility] 03/15/2023 3:34 PM EDT 03/15/2023 3:41 PM EDT [facility] External Provider LAB BLO OD ORDERABLES Final Result [facility] [address] [place] [phone] * Culture, Urine, Routine (03/11/2023 4:02 PM EDT) Urine specimen obtained by clean catch procedure / Unknown 03/11/2023 4:02 PM EDT 03/11/2023 6:59 PM EDT Comment:[facility] Narrative [facility] - 03/13/2023 8:43 AM EDT Escherichia coli Quant 50,000 to 100,000 cfu/mL Escherichia coli: Ampicillin 8(S) Escherichia coli: Ceftriaxone <=0.25(S) Escherichia coli: Gentamicin <=1(S) Escherichia coli: Levofloxacin >=8(R) Escherichia coli: Nitrofurantoin <=16(S) Escherichia coli: Trimethoprim/Sulfamethoxazole <=20(S) Specimen Source: Urine clean catch formerly [facility] LAB MICROBIOLOGY - GENERAL ORDER CASIMIRO Final Result Performing Organization Address [facility] Co de Phone Number [facility] [address] [place] [phone] * Calcium (02/10/2023 11:24 AM EDT) Calcium 9.8 8.4 - 10.2 mg/dL [facility] 02/10/2023 11:2 4 AM EDT 02/10/2023 11:24 AM EDT [facility] External Provider LAB BLO OD ORDERABLES Final Result Performing Organization Address [facility] de Phone Number [facility] [address] [place] [address] [phone] * Creatinine, Serum (02/10/2023 11:24 AM EDT) Creatinine, Serum 1.13 0.5 - 1.4 mg/dL [facility] Estimated Glomerular Filt Rate 47 [facility] Comment:NOTE: For -Am erican individuals, multiply the result by 1.210.Chronic Kidney Disease: Estimated GFR < 60 mL/min/[id number] Kidney Disease: Estimated GFR < 15 mL/min/1.73m2 02/10/2023 11:2 4 AM EDT 02/10/2023 11:24 AM EDT [facility] External Provider LAB BLO OD ORDERABLES Final Result Performing Organization Address [facility] Co de Phone Number [facility] [address] [place] [phone] * (ABNORMAL) BUN (Blood Urea Nitrogen) (02/10/2023 11:24 AM EDT) Urea Nitrogen (BUN) 24(H) 9 - 16 mg/dL [facility] 02/10/2023 11:2 4 AM EDT 02/10/2023 11:24 AM EDT [facility] External Provider LAB BLO OD ORDERABLES Final Result Performing Organization Address [facility] Co de Phone Number [facility] [address] [place] [address] [phone] * Electrolyte Panel (02/10/2023 11:24 AM EDT) Pathologist [facility] Sodium 141 135 - 145 mmol/L [facility] Potassium 4.0 3.3 - 5.1 mmol/L [facility] Chloride 105 96 - 108 mmol/L [facility] Carbon Dioxide 25 22 - 29 mmol/L [facility] Anion Gap 15 12 - 20 [facility] 02/10/2023 11:2 4 AM EDT 02/10/2023 11:24 AM EDT [facility] External Provider LAB BLO OD ORDERABLES Final Result Performing Organization Address [facility] de Phone Number [facility] [address] [place] [address] [phone] * (ABNORMAL) Urinalysis, Complete, with Reflex to Culture (02/02/2023 3:16 AM EDT) Color Urine Yellow [facility] Appearance Urine Clear [facility] PH 5.5 5.0 - 9.0 [facility] Glucose Urine UA >=1000(A) Negative mg/dL [facility] Urine Blood Negative Negative [facility] Specific [place] - Urine 1.025 1.005 - 1.025 [facility] Urine Protein Negative Neg-Trace mg/dL [facility] Urine Ketones Negative Negative mg/dL [facility] Nitrite Urine Negative Negative [facility] Leukocyte Esterase Urine Negative Negative [facility] RBC Urine 3-5(A) 0 - 2 /HPF [facility] Urine WBC 0-5 0 - 5 /HPF [facility] Urine Squamous Epithelial Cell 0-2 0 - 2 /HPF [facility] Urine Bacteria None Seen None Seen [facility] Hyaline Casts, Urine 0-2 0 - 2 /LPF [facility] 02/02/2023 3:16 AM EDT 02/02/2023 3:18 AM EDT Narrative [facility] - 02/02/2023 3:28 AM EDT [id number], Clean Catch [facility] External Provider LAB URI NE ORDERABLES Final Result Performing Organization Address [facility] Co de Phone Number [facility] [address] [place] [phone] * Sed Rate by Modified Pabloren (02/02/2023 2:37 AM EDT) Erythrocyte Sedimentation Rate 7 0 - 20 MM/HR [facility] Comment:Patients with polycy themia and many hemoglobin abnormalitiesmay have depressed sed rates whereas patients with anemiamay have elevated sed rates. 02/02/2023 2:37 AM EDT 02/02/2023 2:43 AM EDT [facility] External Provider LAB BLO OD ORDERABLES Final Result Performing Organization Address [facility] Co de Phone Number [facility] [address] [place] [phone] * TSH W/Reflex to FT4 (02/02/2023 2:37 AM EDT) TSH reflex Free T4 2.61 0.32 - 4.0 uIU/mL [facility] 02/02/2023 2:37 AM EDT 02/02/2023 2:43 AM EDT [facility] External Provider LAB BLO OD ORDERABLES Final Result Performing Organization Address City/[facility]/ZIP Co de Phone Number [facility] [address] [place] [address] [phone] * B Type Natriuretic Peptide (BNP) (02/02/2023 2:37 AM EDT) B Type Natriuretic Peptide 72 <100 pg/mL [facility] Comment:For those patients w ho are being treated with Natrecor(nesiritide, recombinant BNP), BNP testing should beperformed at least two hours post treatment in order toensure that only endogenous levels of BNP are detected. 02/02/2023 2:37 AM EDT 02/02/2023 2:43 AM EDT [facility] External Provider LAB BLO OD ORDERABLES Final Result Performing Organization Address [facility] Co de Phone Number [facility] [address] [place] [address] [phone] * High Sensitivity Troponin I (02/02/2023 2:37 AM EDT) Pathologist [facility] TROPONIN I HIGH SENSITIVITY 3.7 <3.5 - 17.0 ng/L [facility] Comment:The Tony high sens itivity Troponin-I results should beused in conjunction with other diagnostic information suchas ECG, clinical observations and information, and patientsymptoms to aid in the diagnosis of MD. 02/02/2023 2:37 AM EDT 02/02/2023 2:43 AM EDT [facility] External Provider LAB BLO OD ORDERABLES Final Result Performing Organization Address City/[facility]/ZIP Co de Phone Number [facility] [address] [place] [address] [phone] * (ABNORMAL) Basic Metabolic Panel (02/02/2023 2:37 AM EDT) Sodium 139 135 - 145 mmol/L [facility] Comment:Lipemic Specimen Potassium 4.3 3.3 - 5.1 mmol/L [facility] Comment:Lipemic Specimen Chloride 100 96 - 108 mmol/L [facility] Comment:Lipemic Specimen Carbon Dioxide 25 22 - 29 mmol/L [facility] Anion Gap 18 12 - 20 [facility] Urea Nitrogen (BUN) 38(H) 9 - 16 mg/dL [facility] Comment:Lipemic Specimen Creatinine, Serum 1.58(H) 0.5 - 1.4 mg/dL [facility] Comment:Lipemic Specimen Creatinine Clr Calc Pharmacy 32.4 [facility] Comment:Provided height and weight: 162.56 cm,92.986 kg.eGFR (calculated from the MDRD study equation) and eCrCl(calculated from the Cockcroft-Gault equation) are based ondifferent parameters and may not yield comparable results.If eCrCl result is absurd, please check patient'sheight/weight. Estimated Glomerular Filt Rate 32 [facility] Comment:NOTE: For -Am erican individuals, multiply the result by 1.210.Chronic Kidney Disease: Estimated GFR < 60 mL/min/1.50z6Aknenw Kidney Disease: Estimated GFR < 15 mL/min/1.73m2 Glucose 230(H) 60 - 115 mg/dL [facility] Comment:Lipemic Specimen Calcium 10.5(H) 8.4 - 10.2 mg/dL [facility] Comment:Lipemic Specimen 02/02/2023 2:37 AM EDT 02/02/2023 2:43 AM EDT us [facility] External Provider LAB BLO OD ORDERABLES Final Result [facility] [address] [place] [address] [phone] * (ABNORMAL) CBC auto differential (02/02/2023 2:37 AM EDT) White Blood Count 9.2 4.8 - 10.8 X10*3/uL [facility] Red Blood Count 3.86(L) 4.20 - 5.50 X10*6/uL [facility] Hemoglobin 12.9 12.0 - 16.0 g/dl [facility] Hematocrit 37.5 37.0 - 47.0 % [facility] Mean Corpuscular Volume 97.2 80.0 - 98.0 fL [facility] Mean Corpuscular Hemoglobin 33.4(H) 27.0 - 33.0 pg [facility] Mean Corpuscular HGB Conc 34.4 31.0 - 35.0 g/dl [facility] Red Cell Distribution Width 12.6 11.0 - 16.0 % [facility] Platelet Count 281 160 - 400 X10*3/uL [facility] Mean Platelet Volume 10.2 9.4 - 12.3 fL [facility] Neutrophils Percent Auto 58.2 45 - 73 % [facility] Imm Gran Pct Auto 1.0(H) 0.0 - 0.4 % [facility] Lymphocytes Percent Auto 32.1 20 - 40 % [facility] Monocytes Percent Auto 6.3 2 - 11 % [facility] Eosinophils Percent Auto 2.1 0 - 4 % [facility] Basophils Percent Auto 0.3 0 - 2 % [facility] NRBC Pct Auto 0.0 0.0 - 0.2 /100WBC [facility] Neutrophils Absolute Auto 5.4 2.0 - 8.3 x10*3/uL [facility] Imm Gran Abs Auto 0.09(H) 0.00 - 0.03 X10*3/uL [facility] Lymphocytes Absolute Auto 3.0 1.2 - 4.9 X10*3/uL [facility] Monocytes Absolute Auto 0.6 0.1 - 1.2 X10*3/uL [facility] Eosinophils Absolute Auto 0.2 0.0 - 0.4 X10*3/uL [facility] Basophils Absolute Auto 0.0 0.0 - 0.2 X10*3/uL [facility] NRBC Abs Auto 0.000 0.0 - 0.012 X10*3/uL [facility] 02/02/2023 2:37 AM EDT 02/02/2023 2:43 AM EDT [facility] External Provider LAB BLO OD ORDERABLES Final Result Performing Organization Address [facility] Co de Phone Number [facility] [address] [place] [address] [phone] * (ABNORMAL) B Type Natriuretic Peptide (BNP) (01/23/2023 5:48 PM EDT) Pathologist [facility] B Type Natriuretic Peptide 119(H) <100 pg/mL [facility] Comment:For those patients w ho are being treated with Natrecor(nesiritide, recombinant BNP), BNP testing should beperformed at least two hours post treatment in order toensure that only endogenous levels of BNP are detected. 01/23/2023 5:48 PM EDT 01/23/2023 9:15 PM EDT [facility] External Provider LAB BLO OD ORDERABLES Final Result Performing Organization Address [facility] de Phone Number [facility] [address] [place] [address] [phone] * (ABNORMAL) Basic Metabolic Panel (01/23/2023 5:48 PM EDT) Sodium 138 135 - 145 mmol/L [facility] Potassium 4.2 3.3 - 5.1 mmol/L [facility] Chloride 105 96 - 108 mmol/L [facility] Carbon Dioxide 23 22 - 29 mmol/L [facility] Anion Gap 14 12 - 20 [facility] Urea Nitrogen (BUN) 22(H) 9 - 16 mg/dL [facility] Creatinine, Serum 0.99 0.5 - 1.4 mg/dL [facility] Creatinine Clr Calc Pharmacy 50.3 [facility] Comment:Provided height and weight: 160.02 cm,91.626 kg.eGFR (calculated from the MDRD study equation) and eCrCl(calculated from the Cockcroft-Gault equation) are based ondifferent parameters and may not yield comparable results.If eCrCl result is absurd, please check patient'sheight/weight. Estimated Glomerular Filt Rate 54 [facility] Comment:NOTE: For -Am erican individuals, multiply the result by 1.210.Chronic Kidney Disease: Estimated GFR < 60 mL/min/1.24a4Meviuw Kidney Disease: Estimated GFR < 15 mL/min/1.73m2 Glucose 119(H) 60 - 115 mg/dL [facility] Calcium 10.2 8.4 - 10.2 mg/dL [facility] 01/23/2023 5:48 PM EDT 01/23/2023 6:01 PM EDT us [facility] External Provider LAB BLO OD ORDERABLES Final Result [facility] [address] [place] [phone] * Hepatic Function Panel (01/23/2023 5:48 PM EDT) Bilirubin, Total 0.6 0.0 - 1.0 mg/dL [facility] Bilirubin, Direct 0.2 0.0 - 0.5 mg/dL [facility] Aspartate Amino Transferase 12 5 - 31 U/L [facility] Alanine Aminotransferase 8 0 - 31 U/L [facility] Total Protein 7.2 6.5 - 8.0 g/dL [facility] Albumin Level 4.1 3.5 - 5.0 g/dL [facility] Alkaline Phosphatase 72 39 - 117 U/L [facility] 01/23/2023 5:48 PM EDT 01/23/2023 6:01 PM EDT [facility] External Provider LAB BLO OD ORDERABLES Final Result Performing Organization Address [facility] Phone Number [facility] [address] [place] [phone] * High Sensitivity Troponin I (01/23/2023 5:48 PM EDT) TROPONIN I HIGH SENSITIVITY <2.7 <3.5 - 17.0 ng/L [facility] Comment:The Tony high sens itivity Troponin-I results should beused in conjunction with other diagnostic information suchas ECG, clinical observations and information, and patientsymptoms to aid in the diagnosis of MD. 01/23/2023 5:48 PM EDT 01/23/2023 6:01 PM EDT [facility] External Provider LAB BLO OD ORDERABLES Final Result Performing Organization Address [facility] Number [facility] [address] [place] [phone] * (ABNORMAL) APTT (01/23/2023 5:48 PM EDT) Pathologist [facility] Partial Thromboplastin Time 24.9(L) 26.0 - 36.4 SEC [facility] 01/23/2023 5:48 PM EDT 01/23/2023 6:01 PM EDT [facility] External Provider LAB BLO OD ORDERABLES Final Result Performing Organization Address [facility] de Phone Number [facility] [address] [place] [address] [phone] * Prothrombin Time-INR (01/23/2023 5:48 PM EDT) Prothrombin Time 10.0 10.0 - 13.1 SEC [facility] INTERNATIONAL NORM RATIO 0.9 0.9 - 1.1 [facility] Comment:INTERNATIONAL NORMAL IZED RATIO (INR) [...] PM EDT 01/23/2023 6:01 PM EDT us [facility] External Provider LAB BLO OD ORDERABLES Final Result [facility] [address] [place] [address] [phone] * (ABNORMAL) CBC auto differential (01/23/2023 5:48 PM EDT) White Blood Count 7.5 4.8 - 10.8 X10*3/uL [facility] Red Blood Count 3.42(L) 4.20 - 5.50 X10*6/uL [facility] Hemoglobin 11.2(L) 12.0 - 16.0 g/dl [facility] Hematocrit 33.6(L) 37.0 - 47.0 % [facility] Mean Corpuscular Volume 98.2(H) 80.0 - 98.0 fL [facility] Mean Corpuscular Hemoglobin 32.7 27.0 - 33.0 pg [facility] Mean Corpuscular HGB Conc 33.3 31.0 - 35.0 g/dl [facility] Red Cell Distribution Width 12.5 11.0 - 16.0 % [facility] Platelet Count 238 160 - 400 X10*3/uL [facility] Mean Platelet Volume 10.3 9.4 - 12.3 fL [facility] Neutrophils Percent Auto 56.7 45 - 73 % [facility] Imm Gran Pct Auto 0.4 0.0 - 0.4 % [facility] Lymphocytes Percent Auto 26.0 20 - 40 % [facility] Monocytes Percent Auto 9.9 2 - 11 % [facility] Eosinophils Percent Auto 6.3(H) 0 - 4 % [facility] Basophils Percent Auto 0.7 0 - 2 % [facility] NRBC Pct Auto 0.0 0.0 - 0.2 /100WBC [facility] Neutrophils Absolute Auto 4.2 2.0 - 8.3 x10*3/uL [facility] Imm Gran Abs Auto 0.03 0.00 - 0.03 X10*3/uL [facility] Lymphocytes Absolute Auto 1.9 1.2 - 4.9 X10*3/uL [facility] Monocytes Absolute Auto 0.7 0.1 - 1.2 X10*3/uL [facility] Eosinophils Absolute Auto 0.5(H) 0.0 - 0.4 X10*3/uL [facility] Basophils Absolute Auto 0.1 0.0 - 0.2 X10*3/uL [facility] NRBC Abs Auto 0.000 0.0 - 0.012 X10*3/uL [facility] 01/23/2023 5:48 PM EDT 01/23/2023 6:01 PM EDT [facility] External Provider LAB BLO OD ORDERABLES Final Result [facility] [address] [place] [phone] * B Type Natriuretic Peptide (BNP) (12/18/2022 10:20 AM EDT) B Type Natriuretic Peptide 95 <100 pg/mL [facility] Comment:For those patients w ho are being treated with Natrecor(nesiritide, recombinant BNP), BNP testing should beperformed at least two hours post treatment in order toensure that only endogenous levels of BNP are detected. 12/18/2022 10:2 0 AM EDT 12/18/2022 10:20 AM EDT [facility] External Provider LAB BLO OD ORDERABLES Final Result Performing Organization Address [facility] Co de Phone Number [facility] [address] [place] [address] [phone] * (ABNORMAL) APTT (12/18/2022 10:20 AM EDT) Pathologist [facility] Partial Thromboplastin Time 24.7(L) 26.0 - 36.4 SEC [facility] 12/18/2022 10:2 0 AM EDT 12/18/2022 10:20 AM EDT [facility] External Provider LAB BLO OD ORDERABLES Final Result Performing Organization Address [facility] de Phone Number [facility] [address] [place] [phone] * (ABNORMAL) CBC auto differential (12/18/2022 10:20 AM EDT) [facility] White Blood Count 9.0 4.8 - 10.8 X10*3/uL [facility] Red Blood Count 3.63(L) 4.20 - 5.50 X10*6/uL [facility] Hemoglobin 11.8(L) 12.0 - 16.0 g/dl [facility] Hematocrit 35.4(L) 37.0 - 47.0 % [facility] Mean Corpuscular Volume 97.5 80.0 - 98.0 fL [facility] Mean Corpuscular Hemoglobin 32.5 27.0 - 33.0 pg [facility] Mean Corpuscular HGB Conc 33.3 31.0 - 35.0 g/dl [facility] Red Cell Distribution Width 12.4 11.0 - 16.0 % [facility] Platelet Count 221 160 - 400 X10*3/uL [facility] Mean Platelet Volume 10.6 9.4 - 12.3 fL [facility] Neutrophils Percent Auto 73.6(H) 45 - 73 % [facility] Imm Gran Pct Auto 0.2 0.0 - 0.4 % [facility] Lymphocytes Percent Auto 17.1(L) 20 - 40 % [facility] Monocytes Percent Auto 6.4 2 - 11 % [facility] Eosinophils Percent Auto 2.1 0 - 4 % [facility] Basophils Percent Auto 0.6 0 - 2 % [facility] NRBC Pct Auto 0.0 0.0 - 0.2 /100WBC [facility] Neutrophils Absolute Auto 6.7 2.0 - 8.3 x10*3/uL [facility] Imm Gran Abs Auto 0.02 0.00 - 0.03 X10*3/uL [facility] Lymphocytes Absolute Auto 1.6 1.2 - 4.9 X10*3/uL [facility] Monocytes Absolute Auto 0.6 0.1 - 1.2 X10*3/uL [facility] Eosinophils Absolute Auto 0.2 0.0 - 0.4 X10*3/uL [facility] Basophils Absolute Auto 0.1 0.0 - 0.2 X10*3/uL [facility] NRBC Abs Auto 0.000 0.0 - 0.012 X10*3/uL [facility] 12/18/2022 10:2 0 AM EDT 12/18/2022 10:20 AM EDT [facility] External Provider LAB BLO OD ORDERABLES Final Result [facility] [address] [place] [address] [phone] * B Type Natriuretic Peptide (BNP) (11/01/2022 9:29 AM EDT) B Type Natriuretic Peptide 97 <100 pg/mL [facility] Comment:For those patients w ho are being treated with Natrecor(nesiritide, recombinant BNP), BNP testing should beperformed at least two hours post treatment in order toensure that only endogenous levels of BNP are detected. 11/01/2022 9:29 AM EDT 11/01/2022 9:29 AM EDT [facility] External Provider LAB BLO OD ORDERABLES Final Result Performing Organization Address [facility] Phone Number [facility] [address] [place] [phone] * Lipid Panel, Standard (11/01/2022 9:29 AM EDT) Triglycerides 101 mg/dL [facility] Comment:Desirable Triglyceri de: less than 150 mg/dLBorderline High Triglyceride 150-199 mg/dLHigh Triglyceride: 200-499 mg/dLVery High Triglyceride: greater than or equal to 5OO mg/dL Cholesterol 128 mg/dL [facility] Comment:Desirable Cholestero l: less than 200 mg/dLBorderline High Cholesterol: 200-239 mg/dLHigh Cholesterol: greater than 239 mg/dL LDL Cholesterol Calculated 68 mg/dl [facility] Comment:Desirable LDL: less than 100 mg/dLNear Optimal/Above Optimal LDL: 110- 129 mg/dLBorderline High LDL: 130-159 mg/dLHigh LDL: 160-189 mg/dLVery High LDL: greater than or equal to 190 mg/dL HDL Cholesterol 40 mg/dL [facility] Comment:Desirable HDL: great er than 40 mg/dL Note: This HDL assay may give artificially low results in patients with liver disease. 11/01/2022 9:29 AM EDT 11/01/2022 9:29 AM EDT [facility] External Provider LAB BLO OD ORDERABLES Final Result Performing Organization Address [facility] Co de Phone Number [facility] [address] [place] [phone] * ALT (11/01/2022 9:29 AM EDT) Alanine Aminotransferase 9 0 - 31 U/L [facility] 11/01/2022 9:29 AM EDT 11/01/2022 9:29 AM EDT [facility] External Provider LAB BLO OD ORDERABLES Final Result Performing Organization Address [facility] de Phone Number [facility] [address] [place] [phone] * AST (11/01/2022 9:29 AM EDT) Aspartate Amino Transferase 12 5 - 31 U/L [facility] 11/01/2022 9:29 AM EDT 11/01/2022 9:29 AM EDT [facility] External Provider LAB BLO OD ORDERABLES Final Result Performing Organization Address [facility] Phone Number [facility] [address] [place] [phone] * (ABNORMAL) Basic Metabolic Panel (11/01/2022 9:29 AM EDT) Sodium 142 135 - 145 mmol/L [facility] Potassium 4.5 3.3 - 5.1 mmol/L [facility] Chloride 105 96 - 108 mmol/L [facility] Carbon Dioxide 30(H) 22 - 29 mmol/L [facility] Anion Gap 12 12 - 20 [facility] Urea Nitrogen (BUN) 30(H) 9 - 16 mg/dL [facility] Creatinine, Serum 1.18 0.5 - 1.4 mg/dL [facility] Estimated Glomerular Filt Rate 44 [facility] Comment:NOTE: For -Am erican individuals, multiply the result by 1.210.Chronic Kidney Disease: Estimated GFR < 60 mL/min/1.40m9Wxtygw Kidney Disease: Estimated GFR < 15 mL/min/1.73m2 Glucose 105 60 - 115 mg/dL [facility] Calcium 9.7 8.4 - 10.2 mg/dL [facility] 11/01/2022 9:29 AM EDT 11/01/2022 9:29 AM EDT [facility] External Provider LAB BLO OD ORDERABLES Final Result [facility] [address] [place] [phone] [phone] documented in this encounter Visit Diagnoses Not on filedocumented in this encounter Care Teams Flight/Transport Nurse Relationship Specialty Start Date End Date Lupe Moralez FNP [address] [place] [address] PCP - General Family Medicine 04/16/22 Perry Quintero MD [address] [place] [address] Cardiology 06/14/24 documented as of this encounter
--- OUTSIDE RECORDS SUMMARY | 2024-10-14 17:38 | XMS_ITS | Encounter Summary ---
Author Organization [employer] Address [address] [facility] [address] [place] [address] Care Team Providers Care Cabinetmaker Helper Name Role Phone Lupe Moralez BE Primary Care Provider [phone] Perry Quintero MD Unavailable [phone] Encounter Details Date Type Department Care [...] Description 11/05/2024 1:45 PM EDT Office Visit [facility] MED [facility] PEDS [address] [place] [address] Lupe Moralez FNP [address] [place] [address] documented as of this encounter Visit Diagnoses Not on filedocumented in this encounter Additional Health Concerns Assessment Noted Time PHQ-9 Depression Total Score: 4 02/09/20 24 10:42 AM EDT documented as of this encounter Care Teams Cabinetmaker Helper Relationship Specialty Start Date End Date Lupe Moralez FNP [address] [place] [address] PCP - General Family Medicine 04/16/22 Perry Quintero MD [address] [place] [address] Cardiology 06/14/24 documented as of this encounter
--- OUTSIDE RECORDS SUMMARY | 2024-10-14 17:38 | XMS_ITS | Encounter Summary ---
Author Organization [employer] Address [address] [facility] [address] [place] [address] Care Team Providers Care Subsurface Augmentee Elint Operator Name Role Phone Lupe Moralez Primary Care Provider [phone] Perry Quintero MD Unavailable [phone] Reason for Visit * Reason Onset Date Comments Hospital Follow-up 09/24/2023 Encounter Details Date Type Department Care Team ([facility] st Contact Info) Description 09/24/2023 Telephone [facility] MED[facility]INE [address] [place] [address] Lupe Moralez FNP [address] [place], [place] [phone] Hospital Follow-up Social History Tobacco Use Types [...] changes. Thank you! Contacted Yanci Morrow via Super regarding above message and Yanci reached out to [place] to coordinate. Yanci confirmed that Candida will coordinate this pre-visit consult. Routing message back to PCP galo is aware and to Abby Lord. * Telephone Encounter - Gely Hernandez RN - 09/25/2023 3:22 PM EST TC placed to patient via [employer] Auto Detailer and daughter answered. Daughter states patient unable to come to the phone and the moment and that she handles the patient's medical care and can scheduleHFU for her. Daughter explained that patient was having SOB and rising BP and was admitted at [facility]. Daughterstates that they found pulmonary edema [...] from pt requesting a HDF appt. [facility]: [facility] Date of admission: 09/17 Discharge date: 09/19 Diagnosed: Cardiovascular * Telephone Encounter - Sandeep Hernandez - 09/24/2023 2:44 PM EST Tc from pt requesting a HDF appt. Hospital: [facility] Date of admission: 09/17 Discharge date: 09/19 Diagnosed: Cardiovascular documented in this encounter Plan of Treatment Upcoming Encounters Date Type Department Care Team (Late st Contact Info) Description 11/05/2024 1:45 PM EDT Office Visit [facility] MED [facility] PEDS [address] [place] [address] Lupe Moralez FNP [address] [place] [address] documented as of this encounter Visit Diagnoses Not on filedocumented in this encounter Additional Health Concerns Assessment Noted Time PHQ-9 Depression Total Score: 5 01/03/20 23 2:27 PM EDT documented as of this encounter Care Teams Subsurface Augmentee Elint Operator Relationship Specialty Start Date End Date Lupe Moralez FNP [address] [place] [address] PCP - General Family Medicine 04/16/22 Perry Quintero MD [address] [place] [phone] Cardiology 06/14/24 documented as of this encounter
--- OUTSIDE RECORDS SUMMARY | 2024-10-14 17:38 | XMS_ITS | Encounter Summary ---
Author Organization [employer] Address [address] [facility] 7t [place] [address] Care Team Providers Care Hotbed Transfer Operator Name Role Phone Lupe Moralez Primary Care Provider [phone] Perry Quintero MD Unavailable [phone] Reason for Visit * Reason Onset Date Comments question 03/02/2024 Encounter Details Date Type Department Care Team ([facility] st Contact Info) Description 03/02/2024 Telephone [facility] MEDICINE [address] [place] [address] Lupe Moralez FNP [address] [place], [place] [phone] question Social History Tobacco Use Types Packs/Day [...] directed to another line to discuss about [facility] locations that are covered by [employer] to [...] it's an insurance thing gave insurance number [phone] documented in this encounter Plan of Treatment Upcoming Encounters Date Type Department Care Team (Late st Contact Info) Description 11/05/2024 1:45 PM EDT Office Visit [facility] MED & PEDS [address] [place] [address] Lupe Moralez FNP [address] [place] [address] documented as of this encounter Visit Diagnoses Not on filedocumented in this encounter Additional Health Concerns Assessment Noted Time PHQ-9 Depression Total Score: 4 02/09/20 24 10:42 AM EDT documented as of this encounter Care Teams Hotbed Transfer Operator Relationship Specialty Start Date End Date Lupe Moralez FNP [address] [place] [address] PCP - General Family Medicine 04/16/22 Perry Quintero MD [address] [place] [address] Cardiology 06/14/24 documented as of this encounter
--- OUTSIDE RECORDS SUMMARY | 2024-10-14 17:38 | XMS_ITS | Encounter Summary ---
Author Organization [employer] Address [address] [facility] 7t [place] [address] Care Team Providers Care Isotope Technologist Name Role Phone Lupe Moralez Primary Care Provider [phone] Perry Quintero MD Unavailable [phone] Reason for Visit * Reason Onset Date Comments Referral 06/19/2023 Encounter Details Date Type Department Care Team ([facility] st Contact Info) Description 06/19/2023 Telephone [facility] MEDICINE [address] [place] [address] Lupe Moralez FNP [address] [place], [place] [phone] Referral Social History Tobacco Use Types Packs/Day [...] Requesting change in location for PT [place] [facility] if possible. [facility] [facility] * Telephone Encounter - Sandeep Hernandez - 06/19/2023 11:18 AM EST Tc from patients daughter requestingphysical therapy referral to be switch to [facility] due to transportation. documented in this encounter Plan of Treatment Upcoming Encounters Date Type Department Care Team (Late st Contact Info) Description 11/05/2024 1:45 PM EDT Office Visit [facility] MED & PEDS [address] [place] [address] Lupe Moralez FNP [address] [place] [address] documented as of this encounter Visit Diagnoses Not on filedocumented in this encounter Additional Health Concerns Assessment Noted Time PHQ-9 Depression Total Score: 5 01/03/20 23 2:27 PM EDT documented as of this encounter Care Teams Isotope Technologist Relationship Specialty Start Date End Date Lupe Moralez FNP [address] [place] [address] PCP - General Family Medicine 04/16/22 Perry Quintero MD [address] [place] [address] Cardiology 06/14/24 documented as of this encounter
--- OUTSIDE RECORDS SUMMARY | 2024-10-14 17:38 | XMS_ITS | Encounter Summary ---
Author Organization [employer] Address [address] [facility] [address] [place] [address] Care Team Providers Care Mailing Machine Assistant Name Role Phone Lupe Moralez Primary Care Provider [phone] Perry Quintero MD Unavailable [phone] Encounter Details Date Type Department Care Team (Latest Contact Info) Description 09/24/2024 1:45 PM EST Office Visit [facility] MED & PEDS [address] [place] [address] Lupe Moralez FNP [address] [place] [address] Heart failure with reduced ejection fraction (CMS/HCC) [...] visit: Recently returned from a trip to [place] where she was hospitalized for significant anemia, [...] associated symptoms. Last colonoscopy approximately 2021 in [place] per daughter. Today: Anemia: She was referred urgently to heme/onc and GI for for consult and workup of anemia with concern for possible GI bleed. She was seen by heme-onc at [facility]- Dr. Cobb on 09/21/2024. Suspected possible GI bleed as she has iron deficiency anemia. Hemoglobin was stable. Plan to follow-up in 1 month. She continues on Eliquis and Plavix due to cardiac history and defibrillator. ED precautions have been reviewed. No further stool abnormalities. Reports upcoming GI consult scheduled at [facility] on 10/07/2024. Right foot pain: She recently [...] 10-15% on 11/21/23 11/25/23: ICD Implant at [facility] with Dr. Jacob 12/23/23: EF improved [...] Endocrine/Metabolic Type 2 diabetes mellitus without complication (CMS/[facility]) Current Assessment & Plan Lab Results Component Value Date HGBA1C 6.9 (A) 09/17/2024 -A1c & lipids well controlled -Eye Exam: established with ophthalmology -Dental: referral to [facility] 09/05/23 -Monofilament: abnormal on 04/16/22 and [...] in differential. Risk factors: AC Seen in [place] on 09/09/24 and had Hgb of 4.9. Recieved transfusion of about 6 units of blood on09/11/24. Records requested from [place], available lab work reviewed and sent to scan. Consult with [facility] Heme/Onc 09/21/2024, scheduled with [facility] GI 10/07/2024 Shared decision making to [...] but as a nurse practitiioner in the Count includes the [facility], an MD or DO is required to [...] in differential. Risk factors: AC Seen in [place] on 09/09/24 and had Hgb of 4.9. Recieved transfusion of about 6 units of blood on09/11/24. Records requested from [place], available lab work reviewed and sent to scan. Consult with [facility] Heme/Onc 09/21/2024, scheduled with [facility] GI 10/07/2024 Shared decision making to [...] with ophthalmology -Dental: referral to [facility] 09/05/23 -Monofilament: abnormal on 04/16/22 and [...] Description 11/05/2024 1:45 PM EDT Office Visit [facility] MED & PEDS [address] [place] [address] Lupe Moralez FNP [address] [place] [address] documented as of this encounter Visit Diagnoses [...] documented as of this encounter Care Teams Mailing Machine Assistant Relationship Specialty Start Date End Date Lupe Moralez FNP [address] [place] [address] PCP - General Family Medicine 04/16/22 Perry Quintero MD [address] [place] [address] Cardiology 06/14/24 documented as of this encounter
--- OUTSIDE RECORDS SUMMARY | 2024-10-14 17:38 | XMS_ITS | Encounter Summary ---
Author Organization [employer] Address [address] [facility] [address] [place] [address] Care Team Providers Care Industrial Designer Name Role Phone Lupe Moralez Primary Care Provider [phone] Perry Quintero MD Unavailable [phone] Reason for Visit * Reason Onset Date Comments FYI 12/15/2023 Encounter Details Date Type Department Care Team ([facility] Contact Info) Description 12/15/2023 Telephone [facility] MED & PEDS [address] [place] [address] Lupe Moralez FNP [address] [place] [address] FYI Social History Tobacco Use Types Packs/Day [...] - 12/15/2023 2:27 PM EDT Tc from [facility] calling to advise provider pt has been discharged from nursing services with all nursing goals met. documented in this encounter Plan of Treatment Upcoming Encounters Date Type Department Care Team (Late st Contact Info) Description 11/05/2024 1:45 PM EDT Office Visit [facility] MED [facility] PEDS [address] [place] [address] Lupe Moralez FNP [address] [place] [address] documented as of this encounter Visit Diagnoses Not on filedocumented in this encounter Additional Health Concerns Assessment Noted Time PHQ-9 Depression Total Score: 5 01/03/20 23 2:27 PM EDT documented as of this encounter Care Teams Industrial Designer Relationship Specialty Start Date End Date Lupe Moralez FNP [address] [place] [address] PCP - General Family Medicine 04/16/22 Perry Quintero MD [address] [place] [address] Cardiology 06/14/24 documented as of this encounter
--- OUTSIDE RECORDS SUMMARY | 2024-10-14 17:38 | XMS_ITS | Encounter Summary ---
Author Organization [facility] Address [address] [facility] 7t [place] [address] Care Team Providers Care Aircraft Instrument Tester Name Role Phone Lupe Moralez Primary Care Provider [phone] Perry Quintero MD Unavailable [phone] Reason for Referral * Consultation (STAT) - Closed Specialty Diagnoses / Procedures Referred By Chet green Referred To Contact Hematology and Oncology Diagnoses Anemia, unspecified type Lupe Moralez FNP [address] [place] [address] Phone: tel: fax: [facility] Referral ID Status Reason Start Date Expiration Date V isits Requested Visits Authorized [id number] Closed Specialty Services Required 09/17/2024 09/17/2025 1 1 * Consultation (STAT) - Closed Specialty Diagnoses / Procedures Referred By Chet green Referred To Contact Gastroenterology Diagnoses Anemia, unspecified type Lupe Moralez FNP [address] [place] [address] Phone: tel: fax: [facility] Gastroenterology [address] [place], [place] Phone: tel: fax: Referral ID Status Reason Start Date Expiration Date V isits Requested Visits Authorized [id number] Closed Specialty Services Required 09/17/2024 09/17/2025 1 1 Reason for Visit * Reason Comments Diabetes Anemia gout Encounter Details Date Type Department Care Team (Late st Contact Info) Description 09/17/2024 1:45 PM EST Office Visit [facility] MED & PEDS [address] [place] [address] NaomyLupe, HARDWOOD SAWYER [address] [place], [place] Anemia, unspecified type (Primary Dx); Type [...] this encounter Progress Notes * Lupe Moralez, HARDWOOD SAWYER - 09/17/2024 1:45 PM EST Subjective: Charleen [...] 06/14/24 Recently returned from a trip to [place] where she was hospitalized for significant anemia, [...] associated symptoms. Last colonoscopy approximately 2021 in [place] per daughter. Gout: Seen yesterday for sick [...] as recent significant anemia. DME request through [facility]. Review of Systems Constitutional: Negative for chills [...] 10-15% on 11/21/23 11/25/23: ICD Implant at [facility] with Dr. Jacob 12/23/23: EF improved to [...] Endocrine/Metabolic Type 2 diabetes mellitus without complication ([facility]) Current Assessment & Plan Lab Results Component Value Date HGBA1C 6.9 (A) 09/17/2024 -A1c & lipids well controlled -Eye Exam: established with ophthalmology -Dental: referral to [facility] Dental 09/05/23 -Monofilament: abnormal on 04/16/22 [...] in differential. Risk factors: AC Seen in [place] on 09/09/24 and had Hgb of 4.9. Recieved transfusion of about 6 units of blood on09/11/24. Records requested from [place], available lab work reviewed and sent to scan. Referral to [facility]Onc and [facility] for further eval [...] in differential. Risk factors: AC Seen in [place] on 09/09/24 and had Hgb of 4.9. Recieved transfusion of about 6 units of blood on09/11/24. Records requested from [place], available lab work reviewed and sent to scan. Referral to [facility]Onc and [facility] for further eval ED precautions reviewed * Assessment & Plan Note - BE Chavez - 09/17/2024 7:55 PM ESTAssociated Problem(s): Type 2 diabetes mellitus without complication (CMS/HCC) Lab Results Component Value Date HGBA1C 6.9 (A) 09/17/2024 -A1c & lipids well controlled -Eye Exam: established with ophthalmology -Dental: referral to [facility] Dental 09/05/23 -Monofilament: abnormal on 04/16/22 [...] 11/05/2024 1:45 PM EDT Office Visit [facility] MED & PEDS [address] [place] [address] Lupe Moralez FNP [address] [place] [address] Scheduled Referrals Name Type Priority Associated Diagnoses [...] complication, without long-term current use of insulin ([facility]) POCT GLUCOSE Routine 09/17/2024 2:02 PM EST Type 2 diabetes mellitus without complication, without long-term current use of insulin ([facility]) documented in this encounter Results * XR Foot 3+ Views Right (09/23/2024 1:38 PM EST) Anatomical Region Laterality Modality Lower Extremities, Foot Right Radiogra phic Imaging 09/23/2024 1:38 PM EST Narrative 09/23/2024 2:02 PM EST ? [facility] ?[address] ?[place] [address] ?XRay Report ? Signed ? Patient: Fajardo Hines,Charleen ?MR#: [id number] ?? [id number] ? : 1945 ?Acct:[id number] ? Age/Sex: 79 / F ?ADM Date: 02/20/25 ? Loc: HO.HHCL ? Attending Dr: Lupe Moralez HARDWOOD SAWYER ? Ordering Physician: Lupe Moralez ?? Date of Service: 09/23/24 ?? Procedure(s): XR foot RT min 3V ?? Accession Number(s): [id number] ? cc: Lupe Moralez HARDWOOD SAWYER ? EXAMINATION: ?? XR FOOT, RIGHT ? [...] DD/ 1338 ? TD/TT: 09/23/24 1351 ? Women'S Soccer Coach: ? Procedure Note Laly, [place] - 09/23/2024 [place] [address] XRay Report Signed Patient: Umberto Gallo#: [id number] : 5Acct:[id number] Age/Sex: 79 / FADM Date: 09/23/24 Loc: HO.HHCL Attending Dr: Lupe Moralez HARDWOOD SAWYER Ordering Physician: Lupe Moralez Date of Service: 09/23/24 Procedure(s): XR foot RT min 3V Accession Number(s): [id number] cc: Lupe Moralez EXAMINATION: XR FOOT, RIGHT [...] 09/23/24 1400 DD/ 1338 TD/TT: 09/23/24 1351 Women'S Soccer Coach: Lupe Clarissaraji HARDWOOD SAWYER IMG XR PROCEDURES Final Result * (ABNORMAL) CBC auto differential (09/23/2024 1:24 PM EST) White Blood Count 10.1 4.8 - 10.8 X10*3/uL [facility] Red Blood Count 3.92(L) 4.20 - 5.50 X10*6/uL [facility] Hemoglobin 10.7(L) 12.0 - 16.0 g/dl [facility] Hematocrit 35.3(L) 37.0 - 47.0 % [facility] Mean Corpuscular Volume 90.1 80.0 - 98.0 fL [facility] Mean Corpuscular Hemoglobin 27.3 27.0 - 33.0 pg [facility] Mean Corpuscular HGB Conc 30.3(L) 31.0 - 35.0 g/dl [facility] Red Cell Distribution Width 15.1 11.0 - 16.0 % [facility] Platelet Count 406(H) 160 - 400 X10*3/uL [facility] Mean Platelet Volume 10.9 9.4 - 12.3 fL [facility] Neutrophils Percent Auto 72.9 45 - 73 % [facility] Imm Gran Pct Auto 0.6(H) 0.0 - 0.4 % [facility] Lymphocytes Percent Auto 18.5(L) 20 - 40 % [facility] Monocytes Percent Auto 5.5 2 - 11 % [facility] Eosinophils Percent Auto 2.0 0 - 4 % [facility] Basophils Percent Auto 0.5 0 - 2 % [facility] NRBC Pct Auto 0.0 0.0 - 0.2 /100WBC [facility] Neutrophils Absolute Auto 7.4 2.0 - 8.3 x10*3/uL [facility] Imm Gran Abs Auto 0.06(H) 0.00 - 0.03 X10*3/uL [facility] Lymphocytes Absolute Auto 1.9 1.2 - 4.9 X10*3/uL [facility] Monocytes Absolute Auto 0.6 0.1 - 1.2 X10*3/uL [facility] Eosinophils Absolute Auto 0.2 0.0 - 0.4 X10*3/uL [facility] Basophils Absolute Auto 0.1 0.0 - 0.2 X10*3/uL [facility] NRBC Abs Auto 0.000 0.0 - 0.012 X10*3/uL [facility] Blood Venous blood specimen / Unknown 09/23/2024 1:24 PM EST 09/23/2024 4:13 PM EST us Lupe Moralez HARDWOOD SAWYER LAB BLOOD ORDERABLES Final Res ult Performing Organization Address City/State/[facility] Co de Phone Number [facility] [address] [place] [phone] * Cologuard?? colon cancer screening (09/23/2024 11:20 AM EST) Cologuard Result Negative Negative 09/30/19 11:49 AM EST [facility] (CLIA #:[id number]) Comment: NEGATIVE TEST RESULT. A negative Cologuard [...] cancer. ??Following a negative Cologuard result, the [place] Cancer Society and U.S. Multi-Society Task Force screening guidelines recommend a Cologuard re-screening interval of 3 years. References: [place] [employer] Guideline for Colorectal Cancer Screening: https://www.cancer.org/cancer/tsycs-pcmjng-jcnine/hdvjjyubg-zjbdokbdp-ikkqaqi/ac s-rec ommendations.html.; Elvis DK, Parker MORRIS, Ana Rosa WattsK, Colorectal Cancer Screening: Recommendations for Physicians and Patients from the U.S. Multi-Society Task Force on Colorectal Cancer Screening , Am J Gastroenterology 2017; 112:1183-9176. TEST DESCRIPTION: Composite algorithmic analysis of stool [...] (Sudhakar Grimaldo al, N Engl J Med 2014;370(14):1517-9497.) Cologuard may produce a false negative or false positive result (no colorectal cancer or precancerous polyp present at colonoscopy follow up). A negative Cologuard test result does not guarantee the absence of CRC or advanced adenoma (pre-cancer). The current Cologuard screening interval is every 3 years. ([place] Cancer Society and U.S. Multi-Society Task Force). Cologuard performance data in a 10,000 patient pivotal study using colonoscopy as the reference method can be accessed at the following location: www.Photo Rankr/results. Additional description of the Cologuard test process, warnings and precautions can be found at www.CloudmeterogHy-Driverd.MENA SOCIAL. Stool specimen (specimen) 09/23/2024 11:20 AM EST 09/24/2024 10:59 AM EST [email or web address] Zarangaraji [facility] SORAYA BRUNO Final Result [facility] (CLIA #:[id number]) [place] [address], * (ABNORMAL) POCT HGB A1C (09/17/2024 2:07 PM EST) Pathologist [facility] Hemoglobin A1C 6.9(A) 4.0 - 6.0 % QC Media Lot # [id number] Lot# Expiration Date Blood 09/17/2024 2:07 PM EST Lupe [employer] [facility] POINT OF CARE TEST ENTER/EDIT ORDERABLES [...] documented as of this encounter Care Teams Aircraft Instrument Tester Relationship Specialty Start Date End Date Lupe Moralez FNP [address] [place] [address] PCP - General Family Medicine 04/16/22 Perry Quintero MD [address] [place] [address] Cardiology 06/14/24 documented as of this encounter
--- OUTSIDE RECORDS SUMMARY | 2024-10-14 17:38 | XMS_ITS | Encounter Summary ---
Author Organization [employer] Address [address] [facility] 7t [place] [address] Care Team Providers Care Utilities Operator Name Role Phone Lupe Moralez Primary Care Provider [phone] Perry Quintero MD Unavailable [phone] Encounter Details Date Type Department Care Team ([facility] st Contact Info) Description 09/16/2024 Orders Only [facility] CH[facility] MED & PEDS [address] [place] [address] Lupe Moralez FNP [address] [place] [address] Social History Tobacco Use Types Packs/Day Years [...] Description 11/05/2024 1:45 PM EDT Office Visit [facility] MED & PEDS [address] [place] [address] Lupe Moralez FNP [address] [place] [address] documented as of this encounter Procedures Procedure Name Priority Date/Time Associated Diagnosis Comments SLIDE REVIEW Routine 09/16/2024 1:56 PM EST documented in this encounter Results * Slide Review (09/16/2024 1:56 PM EST) Slide Review VERIFIED [facility] 09/16/2024 1:56 PM EST 09/16/2024 4:02 PM EST us Lupe Moralez PAINT SPRAYER SANDBLASTER LAB BLOOD ORDERABLES Final Res ult [facility] [address] [place] [address] [phone] documented in this encounter Visit Diagnoses Not on filedocumented in this encounter Additional Health Concerns Assessment Noted Time PHQ-9 Depression Total Score: 4 02/09/20 10:42 AM EDT documented as of this encounter Care Teams Utilities Operator Relationship Specialty Start Date End Date Lupe Moralez FNP [address] [place] [address] PCP - General Family Medicine 04/16/22 Perry Quintero MD [address] [place] [address] Cardiology 06/14/24 documented as of this encounter
--- OUTSIDE RECORDS SUMMARY | 2024-10-14 17:38 | XMS_ITS | Encounter Summary ---
Author Organization [employer] Address [address] [facility] 7t [place] [address] Care Team Providers Care Supervisor Shipfitters Name Role Phone Lupe Moralez Primary Care Provider [phone] Perry Quintero MD Unavailable [phone] Encounter Details Date Type Department Care Team ([facility] st Contact Info) Description 11/28/2023 Telephone [facility] CHC MED & PEDS [address] [place] [address] Lupe Moralez FNP [address] [place] [address] Social History Tobacco Use Types Packs/Day Years [...] 11/05/2024 1:45 PM EDT Office Visit [facility] MED & PEDS [address] [place] [address] Lupe Moralez FNP [address] [place] [address] documented as of this encounter Visit Diagnoses Not on filedocumented in this encounter Additional Health Concerns Assessment Noted Time PHQ-9 Depression Total Score: 5 01/03/20 23 2:27 PM EDT documented as of this encounter Care Teams Supervisor Shipfitters Relationship Specialty Start Date End Date Lupe Moralez FNP [address] [place] [address] PCP - General Family Medicine 04/16/22 Perry Quintero MD [address] [place] [address] Cardiology 06/14/24 documented as of this encounter
--- OUTSIDE RECORDS SUMMARY | 2024-10-14 17:39 | XMS_ITS | Encounter Summary ---
Author Organization [employer] Address [address] [facility] 7t [place] [address] Care Team Providers Care College Or University Department Head Name Role Phone Lupe Moralez BE Primary Care Provider [phone] Perry Quintero MD Unavailable [phone] Encounter Details Date Type Department Care [...] Description 11/05/2024 1:45 PM EDT Office Visit [facility] CHC MED & PEDS [address] [place] [address] Lupe Moralez FNP [address] [place] [address] documented as of this encounter Visit Diagnoses Not on filedocumented in this encounter Additional Health Concerns Assessment Noted Time PHQ-9 Depression Total Score: 4 02/09/20 24 10:42 AM EDT documented as of this encounter Care Teams College Or University Department Head Relationship Specialty Start Date End Date Lupe Moralez FNP [address] [place] [address] PCP - General Family Medicine 04/16/22 Perry Quintero MD [address] [place] [address] Cardiology 06/14/24 documented as of this encounter
--- OUTSIDE RECORDS SUMMARY | 2024-10-14 17:39 | XMS_ITS | Encounter Summary ---
Author Organization [employer] Address [address] [facility] 7t [place] [address] Care Team Providers Care Machine Container Washer Name Role Phone Lupe Moralez Primary Care Provider [phone] Perry Quintero MD Unavailable [phone] Reason for Visit * Reason Comments Med Refill Encounter Details Date Type Department Care Team (Late st Contact Info) Description 05/09/2023 Refill [facility] MEDICINE [address] [place] [address] Lupe Moralez FNP [address] [place], [place] [phone] Gastroesophageal reflux disease, unspecified whether esophagitis present [...] 1:45 PM EDT Office Visit [facility] MED & PEDS [address] [place] [address] Lupe Moralez FNP [address] [place] [address] documented as of this encounter Visit Diagnoses Diagnosis Gastroesophageal reflux disease, unspecified whether esophagitis present documented in this encounter Additional Health Concerns Assessment Noted Time PHQ-9 Depression Total Score: 5 01/03/20 23 2:27 PM EDT documented as of this encounter Care Teams Machine Container Washer Relationship Specialty Start Date End Date Lupe Moralez FNP [address] [place] [address] PCP - General Family Medicine 04/16/22 Perry Quintero MD [address] [place] [address] Cardiology 06/14/24 documented as of this encounter
--- OUTSIDE RECORDS SUMMARY | 2024-10-14 17:39 | XMS_ITS | Encounter Summary ---
Author Organization [employer] Address [address] [facility] 7t [place] [address] Care Team Providers Care High School Coordinator Name Role Phone Lupe Moralez Primary Care Provider [phone] Perry Quintero MD Unavailable Reason for Visit * Reason Comments Med Refill Encounter Details Date Type Department Care Team ([facility] st Contact Info) Description 09/17/2024 Refill [facility] [address] [place] [address] Lupe Moralez FNP [address] [place], [place] [phone] Sleep difficulties Social History Tobacco Use Types [...] Description 11/05/2024 1:45 PM EDT Office Visit [facility] MED & PEDS [address] [place] [address] Lupe Moralez FNP [address] [place] [address] documented as of this encounter Visit Diagnoses Diagnosis Sleep difficulties documented in this encounter Additional Health Concerns Assessment Noted Time PHQ-9 Depression Total Score: 4 02/09/20 24 10:42 AM EDT documented as of this encounter Care Teams High School Coordinator Relationship Specialty Start Date End Date Lupe Moralez FNP [address] [place] [address] PCP - General Family Medicine 04/16/22 Perry Quintero MD [address] [place] [address] Cardiology 06/14/24 documented as of this encounter
== END 2024-10-14 14:50 | disposition home or self-care (01) ==
LOC: HO.HUSH 13:53
PROVIDERS: Visit Provider Urology
DX: Z13.9 Encounter for screening, unspecified (principal)

== ENCOUNTER → 2024-10-14 13:52 | Outpatient (BNVA) | payer OTHER, SELFPAY | PROVIDERS: Visit Provider Urology | DX: N39.3 Stress incontinence (female) (male) (principal); N76.0 Acute vaginitis; R35.1 Nocturia | CPT/HCPCS: 81003; 99212 ==

== ENCOUNTER 2024-12-28 12:50 | Outpatient (AMB) | payer OTHER, SELFPAY ==
--- OUTSIDE RECORDS SUMMARY | 2024-12-28 12:54 | XMS_ITS | Encounter Summary ---
Author Organization [employer] Address [address] [place] [address] 7t [place] [address] Care Team Providers Care Electric Track Switch Maintainer Name Role Phone Lupe Moralez Primary Care Provider [phone] Perry Quintero MD Unavailable [phone] Encounter Details Date Type Department Care Team (Late st Contact Info) Description 03/18/2023 Abstract [facility] [address] [place], [place] [phone] Lupe Moralez FNP [address] [place], [place] [phone] Social History Tobacco Use Types Packs/Day Years [...] Care Team (Late st Contact Info) Description 02/07/2025 11:30 AM EDT Office Visit [facility] MED & PEDS [address] [place], [place] [phone] Lupe Moralez FNP [address] [place], [place] [phone] documented as of this encounter Visit Diagnoses Not on filedocumented in this encounter Additional Health Concerns Assessment Noted Time PHQ-9 Depression Total Score: 5 01/03/20 23 2:27 PM EDT documented as of this encounter Care Teams Electric Track Switch Maintainer Relationship Specialty Start Date End Date Lupe Moralez FNP [address] [place] [address] PCP - General Family Medicine 04/16/22 Perry Quintero MD [address] [place] [address] Cardiology 06/14/24 documented as of this encounter
--- NOTE | 2024-12-28 13:02 | MHC.OFFVIS ---
Vital Signs 12/28/24 13:04 Height 5 ft 3 in Weight 164 lb 8 oz BMI 29.1 BP 102/50 L Blood Pressure Location Lt brachial Position Sitting Pulse 76 Pulse Source Pulse Oximeter Pulse Oximetry (%) 96 Oxygen Delivery Method Room Air Intake Visit Reasons: 3m follow up Intake Note: Patient presents follow up VAMSI. Compliance in chart( 85/90 days, >=4hrs-83days(92.22%), Total usage 7hr 35min, Median pressure 7.1, Median Leaks-9.4, AHI-0.8) Continuous Drier Helper Required: Yes Continuous Drier Helper Language: Retail Stocker Services: Continuous Drier Helper Present Continuous Drier Helper Name: New [id number] Information Interpreted: non-clinical & clinical Accompanied by: Daughter Allergies Penicillins Allergy (Intermediate, Verified 12/28/24 13:10) Rash HPI Comments Details: 79 y/o female patient presents with her daughter for follow up of insomnia, VAMSI on CPAP. VAMSI compliance and therapy response (09/30/24-12/28/24) reviewed with the patient. She is on APAP [id number]. Usage average 7 hours 35 min. The max pressure was 6.8cmH20 to 8.9cmH20 Leaks are 6.8cmH20 and residual AHI was 2.4/hr She goes to bed at 11pm to 1am, continues to have fragmented sleep with insomnia and forgets to place it back on her mouth. She still feels the pressures are too high for her. She has lost 30lbs. She takes trazodone 50 mg, and melatonin 10 mg, as this helps her sleep better. Pt had aortic valve replacement done in November 2022 and defibrillator 2023. Pt states that she still feels tired, and not really refreshed in the morning. She is anemic and on iron, in Sep 2024, she returned from [place] and her Hgb was 4 there so she had a transfusions there. She is being followed by her pcp with recent endoscopy /colonoscopy and removal of a polyp. Her diet is good, she is diabetic and monitors her nutritional intake she has lost 30lbs since last visit. She takes miralax daily and has a BM daily, drinks plenty of water. Her mood and memory is okay, she socializes and walks to rastafari, goes shopping with her daughter and completes all ADLs with her daughter's assistance. Denies any falls. RLS symptoms denies. [facility] Medical History Numbness of left hand Bilateral hand numbness Vitamin B12 deficiency Neuropathy Breast cancer, right breast Sleep apnea COVID-19 GERD (gastroesophageal reflux disease) Daytime sleepiness Surgical History History of carpal tunnel release H/O right mastectomy History of bilateral oophorectomies History of cholecystectomy History of appendectomy Family History Father No problems noted. Mother No problems noted. Social History Household Members: Other Household Members Other:: daughter Housing: House Do you presently have visiting nurse or other home services: Yes (home security alarm installer) Unable to assess alcohol history related to: Unknown Alcohol intake: never Patient Tobacco Use Status: Never used Tobacco Second Hand Smoke Exposure: No service: No Current occupational status: retired Physical Exam Vital Signs: Last Vital Signs Pulse 76 12/28/24 13:04 BP 102/50 L 12/28/24 13:04 Pulse Ox 96 12/28/24 13:04 Oxygen Delivery Method Room Air 12/28/24 13:04 BMI result Body Mass Index 29.1 lost 30lbs since last visit and BP is diastolic- low in 50s with defibrillator in place. Const General: cooperative, comfortable and no acute distress Nutritional Appearance: overweight Orientation/consciousness: patient oriented x3 HEENT Face and sinus: Yes face symmetric Throat: Yes uvula midline Eyes Pupils: Equal, round and reactive pupils present Neck Neck: Yes full ROM Resp Effort & Inspection: normal respiratory effort and able to speak in complete sentences Neuro General: patient oriented x3 and moves all extremities Cranial nerves: Yes Equal, round and reactive pupils present, Yes Normal accommodation reflex present, Yes Normal facial strength present, Yes Midline tongue present, Yes Ability to bilaterally rotate head present and Yes Ability to bilaterally elevate shoulders present Motor exam (neuro): 5/5 motor strength present throughout and Normal motor muscle tone present throughout Psych Appearance: grossly normal Affect: normal affect Thought content: Normal thought content present Results Reviewed Results Reviewed: The CPAP compliance and therapy response (2/27/25-12/28/24) reviewed with the patient. She is on APAP [id number]. Usage average 7 hours 35 min. The max presssure was 6.8cmH20 to 8.9cmH20 Leaks are 6.8cmH20 and residual AHI was 2.4/hr Assessment & Plan Assessment & Plan (1) VAMSI on CPAP: Comment: Mild degree of sleep apnea. The total AHI was 7/hr and oxygen concetta was 76%. Code(s): G47.33 - Obstructive sleep apnea (adult) (pediatric); Z99.89 - Dependence on other enabling machines and devices Category: Medical (2) Insomnia: Code(s): G47.00 - Insomnia, unspecified Category: Medical Qualifiers: Insomnia type: primary Qualified Code(s): F51.01 - Primary insomnia (3) Sound sensitivity: Code(s): H83.3X9 - Noise effects on inner ear, unspecified ear Category: Medical Qualifiers: Laterality: bilateral Qualified Code(s): H83.3X3 - Noise effects on inner ear, bilateral (4) Excessive daytime sleepiness: Code(s): G47.19 - Other hypersomnia Category: Medical (5) Anemia: Code(s): D64.9 - Anemia, unspecified Category: Medical Qualifiers: Anemia type: unspecified type Qualified Code(s): D64.9 - Anemia, unspecified Plan Continue to use APAP [id number] as patient experiences good clinical effects when using her CPAP. Advised patient to continue to take melatonin to 10 mg and trazodone 50 mg qHS to initiate sleep. Fatigue with excessive daytime sleepiness. Anemia will check labs with ferritin, Iron, B12/Folate, TSH, lyme panel. F/U in 6 months Orders: Orders IRON PROFILE Today D64.9 - Anemia, unspecified, G47.19 - Other hypersomnia, G47.9 - Sleep disorder, unspecified, R53.83 - Other fatigue Vitamin D 25-OH Total Today D64.9 - Anemia, unspecified, G47.19 - Other hypersomnia TSH reflex Free T4 Today D64.9 - Anemia, unspecified, G47.19 - Other hypersomnia Ferritin Today D64.9 - Anemia, unspecified, G47.19 - Other hypersomnia Homocysteine Today D64.9 - Anemia, unspecified, G47.19 - Other hypersomnia, G47.9 - Sleep disorder, unspecified, R53.83 - Other fatigue Methylmalonic Acid Today D64.9 - Anemia, unspecified, G47.19 - Other hypersomnia, G47.9 - Sleep disorder, unspecified, R53.83 - Other fatigue Lyme Synovial Fld PCR Today D64.9 - Anemia, unspecified, G47.19 - Other hypersomnia Vitamin B12 and Folate Today D64.9 - Anemia, unspecified, G47.19 - Other hypersomnia Patient Instructions: Sleep Hygiene provided: set a scheduled bedtime and wake time to help regulate the circadian rhythm and balance the release of pituitary hormones. Sleep in a dark room, temperatures below 68 degrees, and no devices n bed. Limit caffeinated products 6 hours prior to bed, and limit fluids 2-4 hours prior to bed. Gentle night yoga, diffusing essential oils, and playing soft music can be relaxing. Continue using cpap and for more than 4-6 hours a night, may call regional for supplies. Make certain to wash mask, tubing, and change filters, request supplies as needed, especially when you have an URI. Coding Level of Care Code Est Pt Level 4 (23786) Diagnoses VAMSI on CPAP G47.33; Z99.89 Primary insomnia F51.01 Insomnia type: primary Sound sensitivity in both ears H83.3X3 Laterality: bilateral Excessive daytime sleepiness G47.19 Anemia, unspecified type D64.9 Anemia type: unspecified type Time Spent (min) 25
[2024-12-28 13:04] VITALS: BP 102/50; PULSE 76; O2SAT 96; BMI 29.1
== END 2024-12-28 13:43 | disposition home or self-care (01) ==
LOC: HO.HSMS 12:51
PROVIDERS: PCP Registered Nurse; Visit Provider Physician Assistant Medical
DX: G47.33 Obstructive sleep apnea (adult) (pediatric) (principal); Z99.89 Dependence on other enabling machines and devices; F51.01 Primary insomnia; H83.3X3 Noise effects on inner ear, bilateral; G47.19 Other hypersomnia; D64.9 Anemia, unspecified
CPT/HCPCS: 99214

== ENCOUNTER → 2024-12-28 12:50 | Outpatient (BNVA) | payer OTHER, SELFPAY | PROVIDERS: PCP Registered Nurse; Visit Provider Physician Assistant Medical | DX: G47.33 Obstructive sleep apnea (adult) (pediatric) (principal); G47.19 Other hypersomnia; D64.9 Anemia, unspecified; F51.01 Primary insomnia; H83.3X3 Noise effects on inner ear, bilateral; Z99.89 Dependence on other enabling machines and devices | CPT/HCPCS: 99212 ==

== ENCOUNTER 2024-12-30 11:35 | Outpatient (REF) | payer OTHER, SELFPAY ==
--- OUTSIDE RECORDS SUMMARY | 2024-12-30 11:55 | XMS_ITS | Encounter Summary ---
Author Organization [employer] Address [address] [place] [address] [address] [place] [address] Care Team Providers Care Special Education Classroom Aide Name Role Phone Lupe Moralez Primary Care Provider [phone] Perry Quintero MD Unavailable [phone] Encounter Details Date Type Department Care Team (Late st Contact Info) Description 03/18/2023 Abstract [facility] MEDICINE [address], [place] [phone] Lupe Moralez FNP [address], [place] [phone] Social History Tobacco Use Types Packs/Day Years [...] Description 02/07/2025 11:30 AM EDT Office Visit [facility] MED [facility] PEDS [address] [place], [place] [phone] Lupe Moralez FNP [address], [place] [phone] documented as of this encounter Visit Diagnoses Not on filedocumented in this encounter Additional Health Concerns Assessment Noted Time PHQ-9 Depression Total Score: 5 01/03/20 23 2:27 PM EDT documented as of this encounter Care Teams Special Education Classroom Aide Relationship Specialty Start Date End Date Lupe Moralez FNP [address] [place] [address] PCP - General Family Medicine 04/16/22 Perry Quintero MD [address] [place] [address] Cardiology 06/14/24 documented as of this encounter
[2024-12-30 14:18] LABS: MANUAL DIFF FLAG NO
[2024-12-30 14:28] LABS: Basophils Percent Auto 0.4 % (0-2); Eosinophils Absolute Auto 0.2 X10*3/uL (0.0-0.4); Eosinophils Percent Auto 2.6 % (0-4); Hematocrit 33.5 % (37.0-47.0); Hemoglobin 10.6 g/dl (12.0-16.0); Imm Gran Abs Auto 0.02 X10*3/uL (0.00-0.03); Imm Gran Pct Auto 0.3 % (0.0-0.4); Immature Retic Fraction 9.8 % (3.0-15.9); Lymphocytes Absolute Auto 1.5 X10*3/uL (1.2-4.9); Lymphocytes Percent Auto 21.7 % (20-40); Mean Corpuscular HGB Conc 31.6 g/dl (31.0-35.0); Mean Corpuscular Hemoglobin 29.9 pg (27.0-33.0); Mean Corpuscular Volume 94.6 fL (80.0-98.0); Monocytes Absolute Auto 0.5 X10*3/uL (0.1-1.2); Monocytes Percent Auto 7.3 % (2-11); Neutrophils Absolute Auto 4.7 x10*3/uL (2.0-8.3); Neutrophils Percent Auto 67.7 % (45-73); Platelet Count 236 X10*3/uL (160-400); Red Blood Count 3.54 X10*6/uL (4.20-5.50); Red Cell Distribution Width 14.1 % (11.0-16.0); Retic HGB Equivalent 30.1 pg (30.0-35.0); Reticulocyte Percent 1.7 % (0.5-1.8)
[2024-12-30 14:44] LABS: Anion Gap 12 (12-20); Blood Urea Nitrogen 19 mg/dL (9-16); Calcium 9.8 mg/dL (8.4-10.2); Carbon Dioxide 27 mmol/L (22-29); Chloride 104 mmol/L (96-108); Estimated Glomerular Filt Rate 50; Glucose Random 205 mg/dL (60-115); Iron 46 mcg/dL (30-160); Percent Iron Saturation 17 % (15-50); Potassium 4.1 mmol/L (3.3-5.1); Sodium 139 mmol/L (135-145); Total Iron Binding Capacity 269 mcg/dL (228-428); Unsaturated Iron Binding 223 ug/dL
[2024-12-30 15:00] LABS: Ferritin 33 ng/mL (10-250); TSH reflex Free T4 3.21 uIU/mL (0.32-4.0)
== END 2024-12-30 11:36 | disposition home or self-care (01) ==
LOC: HO.CHCLDS 11:35
PROVIDERS: Visit Provider Internal Medicine
DX: R19.7 Diarrhea, unspecified (principal); D64.9 Anemia, unspecified
CPT/HCPCS: 36415; 80048; 82728; 83540; 84443; 85025; 85045

== ENCOUNTER 2025-02-10 14:29 | Outpatient (REF) | payer OTHER, SELFPAY ==
--- OUTSIDE RECORDS SUMMARY | 2025-02-10 14:38 | XMS_ITS | Encounter Summary ---
Author Organization [employer] Address [address] [place] [address] [address] [place] [address] Care Team Providers Care Drain Cleaner Plumber Name Role Phone Lupe Moralez Primary Care Provider [phone] Perry Quintero MD Unavailable [phone] Encounter Details Date Type Department Care Team (Late st Contact Info) Description 03/18/2023 Abstract [facility] MEDICINE [address], [place] [phone] Lupe Moralez FNP [address] [place], [place] [phone] Social History Tobacco Use Types Packs/Day Years [...] Care Team (Late st Contact Info) Description 02/21/2025 11:00 AM EDT Office Visit [facility] MED & PEDS [address] [place], [place] [phone] Lupe Moralez FNP [address], [place] [phone] documented as of this encounter Visit Diagnoses Not on filedocumented in this encounter Additional Health Concerns Assessment Noted Time PHQ-9 Depression Total Score: 5 01/03/20 23 2:27 PM EDT documented as of this encounter Care Teams Drain Cleaner Plumber Relationship Specialty Start Date End Date Lupe Moralez FNP [address] [place] [address] PCP - General Family Medicine 04/16/22 Perry Quintero MD [address] [place] [address] Cardiology 06/14/24 documented as of this encounter
--- OUTSIDE RECORDS SUMMARY | 2025-02-10 14:39 | XMS_ITS | Data Portability ---
Author Organization [employer] [facility] Address [address] [place] [phone] Care Team Providers Care General Farm Hand Name Role Phone [facility] Referring Provider HIM CCA OTHER Assessment Encounter [...] Orders prednisone 20 mg tablet 2022 023 [facility], [address] [place] [address], [id number], 3 18:51:06 prednisone 20 mg tablet 2022 023 dcorrigan 5 [facility], [address] [place] [address], [id number], 3 18:38:05 ipratropium 0.5 mg-albutero l 3 mg (2.5 mg base)/3 mL nebulizatio n soln 2022 023 [facility], [address] [place] [address], [id number], 3 18:51:10 albuterol sulfate HFA 90 mcg/actuati on aerosol inhaler 2022 023 [id number], [address] [place], [place], [id number], 3 19:15:11 albuterol sulfate 2.5 mg/3 mL [...] Not available Not available Not available 06/01/2024 [id number] SNOMED Not Available [employer] - production [...] Available Not Available No t Available [employer] Trimble Lite kit USE DIRECTED active Not Available [...] Available N ot Available Vitals Date Recorded Heart rate Body temperature Oxygen saturation Oxygen saturation in Arterial blood by Pulse oximetry Body weight Respiratory rate Systolic And Diastolic Provider Name and Address Organization Details Last Updated DateTime 3 66 /min 98.4 [degF] 95 % 95 % 09826.2 56 g 16 /min 109/48 mm[Hg] Not Available [employer] 3 18:59:59 Date Recorded Body weight Oxygen saturation Oxygen saturation in Arterial blood by Pulse oximetry Heart rate Body temperature Respiratory rate Systolic And Diastolic Provider Name and Address Organization Details Last Updated DateTime 3 18559.3 6 g 97 % 97 % 80 /min 97.7 [degF] 14 /min 96/52 mm[Hg] Not Available [employer] 3 18:35:18 Date Recorded Body weight Respiratory rate Body temperature Heart rate Body height Oxygen saturation Oxygen saturation in Arterial blood by Pulse oximetry Systolic And Diastolic Provider Name and Address Organization Details Last Updated DateTime 2 102406. 792 g 18 /min 98.5 [degF] 74 /min 165.1 cm 96 % 96 % 101/68 mm[Hg] Not Available [employer] 2 16:36:35 Social History None recorded. Functional Status None recorded. Mental Status None recorded. Family History Nothing Reported. Medical History No medical history recorded. Gynecological HistoryNo gynecological history recorded. Obstetrics History GPAL:G 0 P 0 0 0 0 Past Encounters Encounter ID Performer Location Encounter Start Date Encounter Closed Date Diagnosis/Indication Diagnosis SNOMED-CT Code Diagnosis ICD10 Code Diagnosis Note [id number] Moise Chapa MD Main - [address] [phone] 07/08/2022 16:12:20 08/11/2023 11:58:45 Gastroesophageal reflux disease 297739609 K21.00 This 76-year-ol d female called Mariama cleary of moderately severe abdominal pain. When the sld teacher arrived, she seemed to indicate heartburn and [...] [id number] Tiffany Saravia MD Main - [facility] [address] [place] [phone] 08/12/2022 18:59:54 08/14/2022 10:30:11 Exacerbation of intermittent asthma [id number] J45.21 76y F with PMH CHF and asthma with mild asthma exacerbati on. Recently moved from [place]. No prior need for steroid treatment in setting of asthma. VSS. Responded well to albuterol nebs suggesting asthma over CHF. Will send inhaler to pharmacy. Encourage patient to f/u with primary care office to receive inhalers and to call us or primary care office if symptoms not improving with albuterol alone or if worsening. [id number] Yunior Berman MD Main - [facility] [address] [place] [phone] 12/23/2022 18:35:12 12/24/2022 14:44:55 Acute exacerbation of chronic obstructive pulmonary disease 470736610 J44.1 Health Concerns Section Related Observation LastModified by Organization Detai ls LastModified Time None Recorded Concern Status LastModified by Organization Details LastModified Time None Recorded Advance Directives Directive None Recorded Payers Insurance Date Sequence Insurance Name Policy Number Policy Chavez Covered Member ID Chavez Member ID Guarantor Name 08/11/2023 1 [facility] (MEDICARE REPLACEMENT/ADV ANTAGE - PPO) Charleen Hines [id number] Charleen Hines 01/27/2024 1 [facility] - DOS PRIOR TO 2022 - DUAL ELIGIBLE (MEDICARE REPLACEMENT/ADV ANTAGE - HMO) Charleen Hines [id number] Charleen Hines 01/27/2024 1 [facility] - DOS ON OR AFTER 2022 - DUAL ELIGIBLE - FDC OPTIONS AND ONE CARE (MEDICARE REPLACEMENT/ADV ANTAGE - HMO) Charleen Hines [id number] Charleen Hines Notes Date Note Type Note [...] ................... ................... ................... ................... ................... ................... ........ Oncology Physician Note: Sent to a call for a pt complaining of abd pain and dizziness. SC8 arrives on scene, pt is alert and oriented. Airway is patent. Pt and daughter speak Australian. Penal Officer line used. Pt was treated for Covid [...] non-tender, no distention; Skin: pink, warm, dry; [facility] orders Mylanta PO. Pt advised to stay hydrated, buy Prilosec OTC and follow up with PCP. Red flags discussed. Pt/daughter have no further questions. ................... ................... ................... ................... ................... ................... ................... ........ Disposition: Fulfilled Moise Chapa MD [address] [facility],[address], [place], [phone], [employer] 09/06/2022 19:09:07 08/12/2022 text/html HPI: cough since [...] no further information needed to process visit [facility] HPI: lock stitch channeler on the lineCHF on lasix and spironolactone, dry cough with chest tightness since Friday. Also some mild shortness of breath. reports possible history of asthma but not on any inhalers. no sick contacts. no rhinorrhea or pharyngitis. has been on inhalers in the past but none currently. Tiffany Saravia MD [address] [place] [address],[address], [place], [phone], [employer] 08/12/2022 19:36:51 12/23/2022 text/html HPI: Patient with onset of illness several days ago. No known fever. Had headache and runny nose. Now with productive cough with yellow phlegm. Using albuterol inhaler x 3 today. Patient listed with VAMSI unknown use of CPAP. Please evaluate equipment if in use at home. ................... ................... ................... ................... ................... ................... ................... ........ [facility] Nursing Assessment: Comments: Review request no further information needed to process visit ................... ................... ................... ................... ................... ................... ................... ........ Oncology Physician Note From Wally Bajwa: Pt reports dry cough and mild ALAS since 12/19. Pt denies SOB at rest, P, f/n/v/d. Of note , pt has COPD [...] worsening sx which are reviewed with her. [facility] Medication Orders: prednisone 20 mg tablet: Administered Oncology Physician Allergies: Penicillin ................... ................... ................... ................... ................... ................... ................... ........ Disposition: Fulfilled Yunior Berman MD [address] [place] [address],[address] [facility], [place], [phone], [employer] 12/23/2022 19:20:03 OBGyn Episode No OBEpisode recorded.
--- OUTSIDE RECORDS SUMMARY | 2025-02-10 14:39 | XMS_ITS | Clinical Summary ---
Author Organization [facility] Facility Address [address] [place] [id number] Care Team Providers Care Executive Asst Name Role Phone Unavailable Primary Care Provider [...] 06/11/2023 03/11/2023, 07/0 12/2022 Influenza Vaccine (#1) 2025 , 08/14/2018, 05/31/2016, Additional history exists Pneumococcal Vaccine: 50+ Years Completed 2019, 09/27/2015 Hepatitis B Vaccine Aged Out No longe r eligible based on patient's age to complete this topic Insurance [facility] ([id number]) [facility] ([id number])
[2025-02-10 15:53] LABS: MANUAL DIFF FLAG NO
[2025-02-10 16:28] LABS: Hematocrit 26.4 % (37.0-47.0); Hemoglobin 8.3 g/dl (12.0-16.0); Imm Gran Abs Auto 0.02 X10*3/uL (0.00-0.03); Imm Gran Pct Auto 0.3 % (0.0-0.4); Lymphocytes Absolute Auto 1.2 X10*3/uL (1.2-4.9); Mean Corpuscular HGB Conc 31.4 g/dl (31.0-35.0); Mean Corpuscular Hemoglobin 29.0 pg (27.0-33.0); Mean Corpuscular Volume 92.3 fL (80.0-98.0); NRBC Abs Auto 0.000 X10*3/uL (0.0-0.012); NRBC Pct Auto 0.0 /100WBC (0.0-0.2); Platelet Count 326 X10*3/uL (160-400); Red Blood Count 2.86 X10*6/uL (4.20-5.50); White Blood Count 6.5 X10*3/uL (4.8-10.8)
[2025-02-10 16:45] LABS: Alanine Aminotransferase 27 U/L (0-31); Albumin Level 4.2 g/dL (3.5-5.0); Alkaline Phosphatase 300 U/L (39-117); Aspartate Amino Transferase 34 U/L (5-31); Iron 26 mcg/dL (30-160); Percent Iron Saturation 8 % (15-50); Total Iron Binding Capacity 308 mcg/dL (228-428); Total Protein 7.0 g/dL (6.5-8.0); Unsaturated Iron Binding 282 ug/dL
[2025-02-10 17:02] LABS: Ferritin 10 ng/mL (10-250)
[2025-02-10 17:17] LABS: Folate 14.6 ng/mL (> or = 4.0); Vitamin B12 498 pg/mL (200-900)
== END 2025-02-10 14:30 | disposition home or self-care (01) ==
LOC: HO.CHCLDS 14:29
PROVIDERS: Visit Provider Pediatrics
DX: D50.9 Iron deficiency anemia, unspecified (principal)
CPT/HCPCS: 36415; 80076; 82607; 82728; 82746; 83540; 85025; 85652

== ENCOUNTER 2025-02-11 13:33 | Outpatient (REF) | payer OTHER, SELFPAY ==
--- OUTSIDE RECORDS SUMMARY | 2025-02-11 13:37 | XMS_ITS | Clinical Summary ---
Author Organization [facility] Facility Address [address] [place] [address] Care Team Providers Care Lockstitch Binder Name Role Phone Unavailable Primary Care Provider [...] patient's age to complete this topic Insurance [facility] ([id number]) [facility] ([id number])
--- OUTSIDE RECORDS SUMMARY | 2025-02-11 13:37 | XMS_ITS | Data Portability ---
Author Organization [employer] [facility] Address [address] [place] [phone] Care Team Providers Care Counter Waiter Name Role Phone [facility] Referring Provider HIM CCA OTHER Assessment Encounter [...] Orders prednisone 20 mg tablet 2022 023 [facility], [address] [place] [address], [id number], 3 18:51:06 prednisone 20 mg tablet 2022 023 [email or web address] 5 [facility], [address] [place] [address], [id number], 3 18:38:05 ipratropium 0.5 mg-albutero l 3 mg (2.5 mg base)/3 mL nebulizatio n soln 2022 023 [facility], [address] [place] [address], [id number], 3 18:51:10 albuterol sulfate HFA 90 mcg/actuati on aerosol inhaler 2022 023 [id number], [address] [place], [place], [id number], 3 19:15:11 albuterol sulfate 2.5 mg/3 mL [...] Not available Not available Not available 06/01/2024 [id number] SNOMED Not Available [employer]Now - production [...] Available Not Available No t Available FreeStyle [place] Lite kit USE DIRECTED active Not Available [...] /min 98.4 [degF] 95 % 95 % 15648.2 56 g 16 /min 109/48 mm[Hg] Not Available [employer] 3 18:59:59 Date Recorded Body weight Oxygen saturation Oxygen saturation in Arterial blood by Pulse oximetry Heart rate Body temperature Respiratory rate Systolic And Diastolic Provider Name and Address Organization Details Last Updated DateTime 3 19962.3 6 g 97 % 97 % 80 /min 97.7 [degF] 14 /min 96/52 mm[Hg] Not Available [employer] 3 18:35:18 Date Recorded Body weight Respiratory rate Body temperature Heart rate Body height Oxygen saturation Oxygen saturation in Arterial blood by Pulse oximetry Systolic And Diastolic Provider Name and Address Organization Details Last Updated DateTime 2 185972. 792 g 18 /min 98.5 [degF] 74 /min 165.1 cm 96 % 96 % 101/68 mm[Hg] Not Available [employer] 2 16:36:35 Social History None recorded. Functional [...] Note 5855 Moise Chapa MD Main - [address] [phone] 07/08/2022 16:12:20 08/11/2023 11:58:45 Gastroesophageal reflux disease 103969294 K21.00 This 76-year-ol d female called Mariama cleary of moderately severe abdominal pain. When the geomagnetician arrived, she seemed to indicate heartburn and [...] 6892 Tiffany Saravia MD Main - instED [address] [place] [phone] 08/12/2022 18:59:54 08/14/2022 10:30:11 Exacerbation of intermittent asthma 164043614 J45.21 76y F with PMH CHF and asthma with mild asthma exacerbati on. Recently moved from [place]. No prior need for steroid treatment in setting of asthma. VSS. Responded well to albuterol nebs suggesting asthma over CHF. Will send inhaler to pharmacy. Encourage patient to f/u with primary care office to receive inhalers and to call us or primary care office if symptoms not improving with albuterol alone or if worsening. [id number] Yunior Berman MD Main - instED [address] [place] [phone] 12/23/2022 18:35:12 12/24/2022 14:44:55 Acute exacerbation of chronic obstructive pulmonary disease 570576882 J44.1 Health Concerns Section Related Observation LastModified by Organization Detai ls LastModified Time None Recorded Concern Status LastModified by Organization Details LastModified Time None Recorded Advance Directives Directive None Recorded Payers Insurance Date Sequence Insurance Name Policy Number Policy Chavez Covered Member ID Chavez Member ID Guarantor Name 08/11/2023 1 [facility] CARE ALLIANCE (MEDICARE REPLACEMENT/ADV ANTAGE - PPO) Charleen [place] [id number] Charleen Hines 01/27/2024 1 [facility] CARE ALLIANCE - DOS PRIOR TO 2022 - DUAL ELIGIBLE (MEDICARE REPLACEMENT/ADV ANTAGE - HMO) Charleen [place] [id number] Charleen Hines 01/27/2024 1 [facility] ALLIANCE - DOS ON OR AFTER 2022 - DUAL ELIGIBLE - SENIOR LIVING OPTIONS AND ONE CARE (MEDICARE REPLACEMENT/ADV ANTAGE - HMO) Charleen [place] [id number] Charleen [place] Notes Date Note Type Note [...] ................... ................... ................... ................... ................... ................... ........ Tobacco Stripping Machine Operator Note: Sent to a call for a pt complaining of abd pain and dizziness. SC8 arrives on scene, pt is alert and oriented. Airway is patent. Pt and daughter speak Bermudian. Acid Painter line used. Pt was treated for Covid [...] non-tender, no distention; Skin: pink, warm, dry; [facility] orders Mylanta PO. Pt advised to stay hydrated, buy Prilosec OTC and follow up with PCP. Red flags discussed. Pt/daughter have no further questions. ................... ................... ................... ................... ................... ................... ................... ........ Disposition: Fulfilled Moise Chapa MD [address] [facility],[address], [place], [address], [employer] 09/06/2022 19:09:07 08/12/2022 text/html HPI: cough since [...] no further information needed to process visit [facility] HPI: language interpreter on the lineCHF on lasix and spironolactone, dry cough with chest tightness since Friday. Also some mild shortness of breath. reports possible history of asthma but not on any inhalers. no sick contacts. no rhinorrhea or pharyngitis. has been on inhalers in the past but none currently. Tiffany Saravia MD [address] [place] [address],[address], [place], [address], [employer] 08/12/2022 19:36:51 12/23/2022 text/html HPI: Patient with onset of illness several days ago. No known fever. Had headache and runny nose. Now with productive cough with yellow phlegm. Using albuterol inhaler x 3 today. Patient listed with VAMSI unknown use of CPAP. Please evaluate equipment if in use at home. ................... ................... ................... ................... ................... ................... ................... ........ [facility] Nursing Assessment: Comments: Review request no further information needed to process visit ................... ................... ................... ................... ................... ................... ................... ........ Tobacco Stripping Machine Operator Note From Wally Bajwa: Pt reports dry [...] worsening sx which are reviewed with her. [facility] Medication Orders: prednisone 20 mg tablet: Administered Tobacco Stripping Machine Operator Allergies: Penicillin ................... ................... ................... ................... ................... ................... ................... ........ Disposition: Fulfilled Yunior Berman MD [address] [place] [address],[address] [facility], [place], [address], [employer] 12/23/2022 19:20:03 OBGyn Episode No OBEpisode recorded.
--- OUTSIDE RECORDS SUMMARY | 2025-02-11 13:37 | XMS_ITS | Encounter Summary ---
Author Organization [employer] Address [address] [facility] 7t [place] [address] Care Team Providers Care Program Attendant Name Role Phone Lupe Moralez Primary Care Provider [phone] Perry Quintero MD Unavailable [phone] Encounter Details Date Type Department Care Team (Late st Contact Info) Description 03/18/2023 Abstract [facility] MEDICINE [address] [place], [place] [phone] Lupe Moralez FNP [address] [place], [place] [phone] Social History Tobacco Use Types Packs/Day Years [...] Description 02/21/2025 11:00 AM EDT Office Visit [facility] PEDS [address] [place], [place] [phone] Lupe Moralez FNP [address] [place], [place] [phone] documented as of this encounter Visit Diagnoses Not on filedocumented in this encounter Additional Health Concerns Assessment Noted Time PHQ-9 Depression Total Score: 5 01/03/20 23 2:27 PM EDT documented as of this encounter Care Teams Program Attendant Relationship Specialty Start Date End Date Lupe Moralez FNP [address] [place] [address] PCP - General Family Medicine 04/16/22 Perry Quintero MD [address] [place] [address] Cardiology 06/14/24 documented as of this encounter
[2025-02-11 16:17] LABS: Anion Gap 13 (12-20); Blood Urea Nitrogen 28 mg/dL (9-16); Calcium 9.4 mg/dL (8.4-10.2); Carbon Dioxide 28 mmol/L (22-29); Chloride 101 mmol/L (96-108); Estimated Glomerular Filt Rate 43; Gamma Glutamyl Transpeptidase 557 U/L (7-33); Potassium 3.9 mmol/L (3.3-5.1); Sodium 138 mmol/L (135-145)
[2025-02-11 16:39] LABS: Parathyroid Hormone Intact 77.3 pg/mL (8.7-77.1)
== END 2025-02-11 13:34 | disposition home or self-care (01) ==
LOC: HO.CHCLDS 13:33
PROVIDERS: Visit Provider Pediatrics
DX: R74.8 Abnormal levels of other serum enzymes (principal)
CPT/HCPCS: 36415; 80048; 82306; 82977; 83970; 84075; 84100

== ENCOUNTER 2025-02-21 13:37 | Outpatient (REF) | payer OTHER, SELFPAY ==
--- OUTSIDE RECORDS SUMMARY | 2025-02-21 14:24 | XMS_ITS | Encounter Summary ---
Author Organization [employer] Address [address] [facility] 7t [place] [address] Care Team Providers Care Rice Field Worker Name Role Phone Lupe Moralez Primary Care Provider [phone] Perry Quintero MD Unavailable [phone] Encounter Details Date Type Department Care Team ([facility] st Contact Info) Description 03/18/2023 Abstract [facility] MEDICINE [address] [place] [address] Lupe Moralez FNP [address] [place] [address] Social History Tobacco Use Types Packs/Day Years [...] as of this encounter Plan of Treatment Not on file documented as of this encounter Visit Diagnoses Not on filedocumented in this encounter Additional Health Concerns Assessment Noted Time PHQ-9 Depression Total Score: 5 01/03/20 23 2:27 PM EDT documented as of this encounter Care Teams Rice Field Worker Relationship Specialty Start Date End Date Lupe Moralez FNP [address] [place] [address] PCP - General Family Medicine 04/16/22 Perry Quintero MD [address] [place] [address] Cardiology 06/14/24 documented as of this encounter
--- OUTSIDE RECORDS SUMMARY | 2025-02-21 14:24 | XMS_ITS | Data Portability ---
Author Organization [employer] [facility] Address [address] [place] [phone] Care Team Providers Care Publicity Writer Name Role Phone [facility] Referring Provider HIM CCA OTHER Assessment [...] Orders prednisone 20 mg tablet 2022 023 [facility], [address] [place] [address], [id number], 3 18:51:06 prednisone 20 mg tablet 2022 023 dcorrigan 5 [facility], [address] [place] [address], [id number], 3 18:38:05 ipratropium 0.5 mg-albutero l 3 mg (2.5 mg base)/3 mL nebulizatio n soln 2022 023 [facility], [address] [place] [address], [id number], 3 18:51:10 albuterol sulfate HFA 90 mcg/actuati on aerosol inhaler 2022 023 [id number], [address] [place], [place], [id number], 3 19:15:11 albuterol sulfate 2.5 mg/3 mL [...] Not available Not available Not available 06/01/2024 44315 8001 SNOMED Not Available [employer]Now - production [...] Available Not Available No t Available FreeStyle [place] Lite kit USE DIRECTED active Not Available [...] /min 98.4 [degF] 95 % 95 % 56061.2 56 g 16 /min 109/48 mm[Hg] Not Available [employer] 3 18:59:59 Date Recorded Body weight Oxygen saturation Oxygen saturation in Arterial blood by Pulse oximetry Heart rate Body temperature Respiratory rate Systolic And Diastolic Provider Name and Address Organization Details Last Updated DateTime 3 51585.3 6 g 97 % 97 % 80 /min 97.7 [degF] 14 /min 96/52 mm[Hg] Not Available [employer] 3 18:35:18 Date Recorded Body weight Respiratory rate Body temperature Heart rate Body height Oxygen saturation Oxygen saturation in Arterial blood by Pulse oximetry Systolic And Diastolic Provider Name and Address Organization Details Last Updated DateTime 2 392177. 792 g 18 /min 98.5 [degF] 74 /min 165.1 cm 96 % 96 % 101/68 mm[Hg] Not Available [employer] 2 16:36:35 Social History None recorded. Functional [...] Note 5855 Moise Chapa MD Main - [address] [phone] 07/08/2022 16:12:20 08/11/2023 11:58:45 Gastroesophageal reflux disease [id number] K21.00 This 76-year-ol d female called Mariama cleary of moderately severe abdominal pain. When the supervisor shuttle fitting arrived, she seemed to indicate heartburn and [...] 6892 Tiffany Saravia MD Main - inst[facility] [address] [place] [phone] 08/12/2022 18:59:54 08/14/2022 10:30:11 Exacerbation of intermittent asthma 220463516 J45.21 76y F with PMH CHF and asthma with mild asthma exacerbati on. Recently moved from [place]. No prior need for steroid treatment in setting of asthma. VSS. Responded well to albuterol nebs suggesting asthma over CHF. Will send inhaler to pharmacy. Encourage patient to f/u with primary care office to receive inhalers and to call us or primary care office if symptoms not improving with albuterol alone or if worsening. 27265 Yunior Berman MD Main - instED [address] [place] [phone] 12/23/2022 18:35:12 12/24/2022 14:44:55 Acute exacerbation of chronic obstructive pulmonary disease 794404653 J44.1 Health Concerns Section Related Observation LastModified by Organization Detai ls LastModified Time None Recorded Concern Status LastModified by Organization Details LastModified Time None Recorded Advance Directives Directive None Recorded Payers Insurance Date Sequence Insurance Name Policy Number Policy Chavez Covered Member ID Chavez Member ID Guarantor Name 08/11/2023 1 [facility] CARE ALLIANCE (MEDICARE REPLACEMENT/ADV ANTAGE - PPO) Charleen [place] [id number] Charleen Hines 01/27/2024 1 [facility] CARE ALLIANCE - DOS PRIOR TO 2022 - DUAL ELIGIBLE (MEDICARE REPLACEMENT/ADV ANTAGE - HMO) Charleen H[place] [id number] Charleen Hines 01/27/[address] [facility] ALLIANCE - DOS ON OR AFTER 2022 - DUAL ELIGIBLE - FPC OPTIONS AND ONE CARE (MEDICARE REPLACEMENT/ADV ANTAGE - HMO) Charleen H[place] [id number] Charleen [place] Notes Date Note Type Note [...] ................... ................... ................... ................... ................... ................... ........ Route Specialist Note: Sent to a call for a pt complaining of abd pain and dizziness. SC8 arrives on scene, pt is alert and oriented. Airway is patent. Pt and daughter speak Uruguayan. C Software Engineer line used. Pt was treated [...] non-tender, no distention; Skin: pink, warm, dry; [facility] orders Mylanta PO. Pt advised to stay hydrated, buy Prilosec OTC and follow up with PCP. Red flags discussed. Pt/daughter have no further questions. ................... ................... ................... ................... ................... ................... ................... ........ Disposition: Fulfilled Moise Chapa MD [address] [facility],[address], [place], [address], [employer] 09/06/2022 19:09:07 08/12/2022 text/html HPI: cough since [...] no further information needed to process visit [facility] HPI: dry end tester on the lineCHF on lasix and spironolactone, dry cough with chest tightness since Friday. Also some mild shortness of breath. reports possible history of asthma but not on any inhalers. no sick contacts. no rhinorrhea or pharyngitis. has been on inhalers in the past but none currently. Tiffany Saravia MD [address] [place] [address],[address], [place], [phone], [employer] 08/12/2022 19:36:51 12/23/2022 text/html HPI: Patient with onset of illness several days ago. No known fever. Had headache and runny nose. Now with productive cough with yellow phlegm. Using albuterol inhaler x 3 today. Patient listed with VAMSI unknown use of CPAP. Please evaluate equipment if in use at home. ................... ................... ................... ................... ................... ................... ................... ........ [facility] Nursing Assessment: Comments: Review request no further information needed to process visit ................... ................... ................... ................... ................... ................... ................... ........ Route Specialist Note From Wally Bajwa: Pt reports dry [...] worsening sx which are reviewed with her. [facility] Medication Orders: prednisone 20 mg tablet: Administered Route Specialist Allergies: Penicillin ................... ................... ................... ................... ................... ................... ................... ........ Disposition: Fulfilled Yunior Berman MD [address] [place] [address],[address] [facility], [place], [address], [employer] 12/23/2022 19:20:03 OBGyn Episode No OBEpisode recorded.
--- OUTSIDE RECORDS SUMMARY | 2025-02-21 14:24 | XMS_ITS | Clinical Summary ---
Author Organization [facility] Address [address] [place] [address] Care Team Providers Care Master Rigger Name Role Phone Unavailable Primary Care Provider [...] patient's age to complete this topic Insurance [facility] ([id number]) [facility] ([id number])
--- OUTSIDE RECORDS SUMMARY | 2025-02-21 14:24 | XMS_ITS | Clinical Summary ---
Author Organization [facility] Address [address] [facility] [address] [place] [address] Phone Care Team Providers Care Defense Travel Administrator Name Role Phone Pcp, Unknown Primary Care Provider Unavailabl e Allergies Active Allergy Reactions Criticality Noted Date Comments Penicillins 07/04/2023 Medications lidocaine 2 % Soln Use as directed 15 mL in the mouth or throat every 4 (four) hours as needed. 100 mL 07/04/2023 Active Social History Tobacco Use Types Packs/Day Years Used Date Smoking Tobacco: Never Assessed Education Answer Date Recorded Are you interested in more education? Not on kary e 07/04/2023 Are you concerned about learning? Not on file 07/04/2023 No 07/04/2023 No 07/04/2023 Digital Access Answer Date Recorded No 07/04/2023 No 07/04/2023 Reliable internet access at home? Not on file 07/04/2023 Device with a working camera? Not on file Comments Unknown Sex and Gender Information Value Date Recorded Sex Assigned at Not on file Legal Sex Female 1:21 PM EST Gender Identity Not on file Sexual Orientation Not on file Last Filed Vital Signs Vital Sign Reading Time Taken Comments Blood Pressure 109/54 07/04/2023 4:18 PM EST Pulse 79 07/04/2023 4:18 PM EST Temperature 36.8 C (98.2 F) 07/04/2023 4:18 PM EST Respiratory Rate 20 07/04/2023 4:18 PM EST Oxygen Saturation 96% 07/04/2023 4:18 PM EST Inhaled Oxygen Concentration - - Weight 91.6 kg (202 lb) 07/04/2023 1:26 PM EST Height 162.6 cm (5' 4 ) 07/04/2023 1:26 PM EST Body Mass Index 34.67 07/04/2023 1:26 PM EST Plan of Treatment Health Maintenance Due Date Last Done Comments Adult Td,Tdap Booster 1944 LIPID PANEL 1944 DEPRESSION SCREENING 1956 SMOKING Hx and SMOKELESS TOB ACCO SCREENING 1957 ZOSTER VACCINES (1 of 2) 1994 OSTEOPOROSIS SCREENING INITI AL (ONE-TIME) 2009 RSV VACCINE (1 - 1-dose 75+ series) 2019 PNEUMOCOCCAL VACCINES (50+ y ears) (2 of 2 - PCV) 2020 2019 COVID-19 VACCINE (2023-2 5 season) 2024 HEPATITIS A VACCINES Aged Out No long er eligible based on patient's age to complete this topic HIB VACCINES Aged Out No longer eligi ble based on patient's age to complete this topic MENINGOCOCCAL VACCINES (ACWY) Aged Out No longer eligible based on patient's age to complete this topic MENINGOCOCCAL VACCINES (B) Aged Out N o longer eligible based on patient's age to complete this topic Medical Devices Not on file Insurance [facility] SCO MEDICARE REPLACEMENT MEDICARE REPLACEMENT MEDICARE REPLACEMENT MEDICARE REPLACEMENT [facility] MEDICARE REPLACEMENT [facility] MEDICARE REPLACEMENT Care Teams Defense Travel Administrator Relationship Specialty Start Date End Date Pcp, Unknown PCP - General 07/04/23 Additional Source Comments The information contained in this document represents components of the legal health record. It is not the complete legal health record.[facility]
[2025-02-21 16:15] LABS: MANUAL DIFF FLAG NO
[2025-02-21 16:24] LABS: Hematocrit 27.1 % (37.0-47.0); Hemoglobin 8.2 g/dl (12.0-16.0); Imm Gran Abs Auto 0.03 X10*3/uL (0.00-0.03); Imm Gran Pct Auto 0.4 % (0.0-0.4); Lymphocytes Absolute Auto 1.7 X10*3/uL (1.2-4.9); Mean Corpuscular HGB Conc 30.3 g/dl (31.0-35.0); Mean Corpuscular Hemoglobin 28.1 pg (27.0-33.0); Mean Corpuscular Volume 92.8 fL (80.0-98.0); NRBC Abs Auto 0.000 X10*3/uL (0.0-0.012); NRBC Pct Auto 0.0 /100WBC (0.0-0.2); Platelet Count 315 X10*3/uL (160-400); Red Blood Count 2.92 X10*6/uL (4.20-5.50); White Blood Count 8.1 X10*3/uL (4.8-10.8)
[2025-02-21 16:51] LABS: Iron 167 mcg/dL (30-160); Percent Iron Saturation 47 % (15-50); Total Iron Binding Capacity 355 mcg/dL (228-428); Unsaturated Iron Binding 188 ug/dL
[2025-02-21 16:57] LABS: Ferritin 9 ng/mL (10-250)
[2025-02-21 17:16] LABS: Folate 16.4 ng/mL (> or = 4.0); Vitamin B12 611 pg/mL (200-900)
[2025-02-22 22:14] LABS: Lyme PCR Source NOT GIVEN; Lyme Synovial Fluid PCR NOT DETECTED (NOT DETECTED)
== END 2025-02-21 13:38 | disposition home or self-care (01) ==
LOC: HO.HHCL 13:37
PROVIDERS: Physician Assistant Medical; PCP Registered Nurse; Visit Provider Registered Nurse
DX: G47.19 Other hypersomnia (principal); D64.9 Anemia, unspecified; R53.83 Other fatigue; G47.9 Sleep disorder, unspecified
CPT/HCPCS: 36415; 82306; 82607; 82728; 82746; 83090; 83540; 83921; 84443; 85025; 87476

== ENCOUNTER 2025-03-01 14:11 | Outpatient (REF) | payer OTHER, SELFPAY ==
--- NOTE | ~2025-03-01 | CT_ITS ---
CLINICAL HISTORY: Anemia, abnormal LFTs CT abdomen and pelvis with IV contrast. COMPARISON: CT abdomen and pelvis dated 03/15/23 at 15:51 EDT FINDINGS: Right breast prosthesis present. TAVR present. Coronary artery calcifications present within the LAD, circumflex. Cardiac pacemaker leads partially visualized. Small hiatal hernia. No focal hepatic lesion. Cholecystectomy. Normal spleen. Normal pancreas. Normal adrenal glands. Symmetric renal enhancement. Right renal cystic lesion measuring 0.9 cm. No hydronephrosis. Appendectomy. Oral contrast has progressed into the distal small bowel. No bowel obstruction. No evidence of diverticulitis. No mesenteric or retroperitoneal lymphadenopathy. Moderate aortoiliac atherosclerotic vascular calcifications. Urinary bladder is unremarkable given degree of distention. No adnexal mass. Vayw-jz-yesuzlqc multilevel spondylosis. No acute fracture or suspicious bone lesion. IMPRESSION: 1. No cause for patient's symptoms identified. No bowel obstruction. No evidence of diverticulitis. This document has been electronically signed by: Wallace Hayes MD on 03/01/2025 18:08:45
--- OUTSIDE RECORDS SUMMARY | 2025-03-01 14:53 | XMS_ITS | Encounter Summary ---
Author Organization [employer] Address [address] [facility] 7t [place] [address] Care Team Providers Care Office Technologist Name Role Phone Lupe Moralez Primary Care Provider [phone] Perry Quintero MD Unavailable [phone] Encounter Details Date Type Department Care Team ([facility] st Contact Info) Description 03/18/2023 Abstract [facility] MEDICINE [address] [place] [address] Lupe Moralez FNP [address] [place] [address] Social History Tobacco Use Types Packs/Day Years [...] documented as of this encounter Care Teams Office Technologist Relationship Specialty Start Date End Date Lupe Moralez FNP [address] [place] [address] PCP - General Family Medicine 04/16/22 Perry Quintero MD [address] [place] [address] Cardiology 06/14/24 documented as of this encounter
--- OUTSIDE RECORDS SUMMARY | 2025-03-01 14:53 | XMS_ITS | Clinical Summary ---
Author Organization [facility] Address [address] [place] [address] Care Team Providers Care Allergist/Immunologist Physician Name Role Phone Unavailable Primary Care Provider [...] patient's age to complete this topic Insurance [facility] ([id number]) [facility] ([id number])
--- OUTSIDE RECORDS SUMMARY | 2025-03-01 14:53 | XMS_ITS | Clinical Summary ---
Author Organization [facility] Address [address] [facility] [address] [place] [address] Phone Care Team Providers Care Chaplain Resident Name Role Phone Pcp, Unknown Primary Care [...] topic Medical Devices Not on file Insurance [facility] SCO MEDICARE REPLACEMENT MEDICARE REPLACEMENT MEDICARE REPLACEMENT MEDICARE REPLACEMENT [facility] MEDICARE REPLACEMENT [facility] MEDICARE REPLACEMENT Care Teams Chaplain Resident Relationship Specialty Start Date End Date Pcp, Unknown PCP - General 07/04/23 Additional Source Comments The information contained in this document represents components of the legal health record. It is not the complete legal health record.[facility]
--- OUTSIDE RECORDS SUMMARY | 2025-03-01 14:53 | XMS_ITS | Data Portability ---
Author Organization [employer] [employer] [facility] [employer] Address [address] [place] [id number] Care Team Providers Care Foxing Closer Name Role Phone [facility] Referring Provider HIM [facility] OTHER Assessment [...] mg tablet 2022 023 [facility], [address] [place] [address], [id number], 3 18:51:06 prednisone 20 mg tablet 2022 023 [facility], [address] [place] [address], [id number], 3 18:38:05 ipratropium 0.5 mg-albutero l 3 mg (2.5 mg base)/3 mL nebulizatio n soln 2022 023 [facility], [address] [place] [address], [id number], 3 18:51:10 albuterol sulfate HFA 90 mcg/actuati on aerosol inhaler 2022 023 [id number], [address] [place], [place], [id number], 3 19:15:11 albuterol sulfate 2.5 mg/3 mL [...] Not available Not available Not available 06/01/2024 78132 8001 SNOMED Not Available [employer] - production [...] Available Not Available No t Available [employer] [place] Lite kit USE DIRECTED active Not Available [...] /min 98.4 [degF] 95 % 95 % 69392.2 56 g 16 /min 109/48 mm[Hg] Not Available [employer] 3 18:59:59 Date Recorded Body weight Oxygen saturation Oxygen saturation in Arterial blood by Pulse oximetry Heart rate Body temperature Respiratory rate Systolic And Diastolic Provider Name and Address Organization Details Last Updated DateTime 3 21294.3 6 g 97 % 97 % 80 /min 97.7 [degF] 14 /min 96/52 mm[Hg] Not Available [employer] 3 18:35:18 Date Recorded Body weight Respiratory rate Body temperature Heart rate Body height Oxygen saturation Oxygen saturation in Arterial blood by Pulse oximetry Systolic And Diastolic Provider Name and Address Organization Details Last Updated DateTime 2 832298. 792 g 18 /min 98.5 [degF] 74 /min 165.1 cm 96 % 96 % 101/68 mm[Hg] Not Available [employer] 2 16:36:35 Social History None recorded. Functional [...] Note 5855 Moise Chapa MD Main - [address] [phone] 07/08/2022 16:12:20 08/11/2023 11:58:45 Gastroesophageal reflux disease [id number] K21.00 This 76-year-ol d female called Mariama cleary of moderately severe abdominal pain. When the women specialist arrived, she seemed to indicate heartburn and [...] 6892 Tiffany Saravia MD Main - [facility] [address] [place] [phone] 08/12/2022 18:59:54 08/14/2022 10:30:11 Exacerbation of intermittent asthma 686460240 J45.21 76y F with PMH CHF and asthma with mild asthma exacerbati on. Recently moved from [place]. No prior need for steroid treatment in setting of asthma. VSS. Responded well to albuterol nebs suggesting asthma over CHF. Will send inhaler to pharmacy. Encourage patient to f/u with primary care office to receive inhalers and to call us or primary care office if symptoms not improving with albuterol alone or if worsening. [address] Yunior Berman MD Main - [facility] [address] [place] [phone] 12/23/2022 18:35:12 12/24/2022 14:44:55 Acute exacerbation of chronic obstructive pulmonary disease [id number] J44.1 Health Concerns Section Related Observation LastModified by Organization Detai ls LastModified Time None Recorded Concern Status LastModified by Organization Details LastModified Time None Recorded Advance Directives Directive None Recorded Payers Insurance Date Sequence Insurance Name Policy Number Policy Chavez Covered Member ID Chavez Member ID Guarantor Name 08/11/2023 1 [facility] (MEDICARE REPLACEMENT/ADV ANTAGE - PPO) Charleen Hines [id number] Charleen Hines 01/27/2024 1 [facility] - DOS PRIOR TO 2022 - DUAL ELIGIBLE (MEDICARE REPLACEMENT/ADV ANTAGE - HMO) Charleen Hines [id number] Charleen Hines 01/27/2024 1 [facility] - DOS ON OR AFTER 2022 - DUAL ELIGIBLE - HALFWAY OPTIONS AND ONE CARE (MEDICARE REPLACEMENT/ADV ANTAGE - HMO) Charleen Hines [id number] Charleen Hines OBGyn Episode No OBEpisode recorded.
[2025-03-01] MEDS: iohexoL 350 MG/ML 100 ML INFUS..BTL IV (17:26)
[2025-03-01] MEDS: Barium Sulfate Oral (Berry) 450 ML ORAL.SUSP 900 ML PO (17:26)
== END 2025-03-01 14:12 | disposition home or self-care (01) ==
LOC: HO.CT 14:11
PROVIDERS: PCP Registered Nurse; Referring Provider Internal Medicine; Visit Provider Registered Nurse
DX: R79.89 Other specified abnormal findings of blood chemistry (principal); R74.8 Abnormal levels of other serum enzymes; R63.4 Abnormal weight loss; D64.9 Anemia, unspecified; Z85.3 Personal history of malignant neoplasm of breast
CPT/HCPCS: 74177; Q9967

== ENCOUNTER → 2025-03-01 14:13 | Outpatient (BNV) | payer OTHER, SELFPAY | PROVIDERS: PCP Registered Nurse; Referring Provider Internal Medicine; Visit Provider Radiology Diagnostic Radiology | DX: R94.5 Abnormal results of liver function studies (principal) | CPT/HCPCS: 74177 ==

== ENCOUNTER 2025-05-17 10:35 | Outpatient (REF) | payer OTHER, SELFPAY ==
[2025-05-17 10:57] LABS: MANUAL DIFF FLAG NO
[2025-05-17 11:25] LABS: Hematocrit 39.4 % (37.0-47.0); Hemoglobin 12.6 g/dl (12.0-16.0); Imm Gran Abs Auto 0.03 X10*3/uL (0.00-0.03); Imm Gran Pct Auto 0.4 % (0.0-0.4); Lymphocytes Absolute Auto 1.6 X10*3/uL (1.2-4.9); Mean Corpuscular HGB Conc 32.0 g/dl (31.0-35.0); Mean Corpuscular Hemoglobin 31.6 pg (27.0-33.0); Mean Corpuscular Volume 98.7 fL (80.0-98.0); NRBC Abs Auto 0.000 X10*3/uL (0.0-0.012); NRBC Pct Auto 0.0 /100WBC (0.0-0.2); Platelet Count 181 X10*3/uL (160-400); Red Blood Count 3.99 X10*6/uL (4.20-5.50); White Blood Count 8.4 X10*3/uL (4.8-10.8)
[2025-05-17 11:56] LABS: Alanine Aminotransferase 30 U/L (0-31); Albumin Level 4.7 g/dL (3.5-5.0); Alkaline Phosphatase 206 U/L (39-117); Aspartate Amino Transferase 25 U/L (5-31); Total Protein 7.5 g/dL (6.5-8.0)
[2025-05-17 12:01] LABS: Gamma Glutamyl Transpeptidase 292 U/L (7-33)
--- OUTSIDE RECORDS SUMMARY | 2025-05-17 12:28 | XMS_ITS | Encounter Summary ---
Author Organization [employer] Address [address] [place] [address] [address] [place] [address] Care Team Providers Care Applications Specialist Name Role Phone Lupe Moralez Primary Care Provider [phone] Perry Quintero MD Unavailable [phone] Encounter Details Date Type Department Care Team ([facility] Contact Info) Description 11/07/2022 Abstract [facility] MED[facility]INE [address] [place] [address] Lupe Moralez FNP [address] [place], [place] [phone] Social History Tobacco Use Types Packs/Day Years [...] Care Team (Late st Contact Info) Description 08/03/2025 11:30 AM EST Office Visit [facility] [address] [place], [place] [phone] Lupe Moralez FNP [address] [place] [address] documented as of this encounter Visit Diagnoses Not on filedocumented in this encounter Care Teams Applications Specialist Relationship Specialty Start Date End Date Lupe Moralez FNP [address] [place] [address] PCP - General Family Medicine 04/16/22 Perry Quintero MD [address] [place] [address] Cardiology 06/14/24 documented as of this encounter
--- OUTSIDE RECORDS SUMMARY | 2025-05-17 12:28 | XMS_ITS | Encounter Summary ---
Author Organization [employer] Address [address] [facility] 7t [place] [address] Care Team Providers Care Distillation Operator Name Role Phone Lupe Moralez Primary Care Provider [phone] Perry Quintero MD Unavailable [phone] Encounter Details Date Type Department Care Team ([facility] st Contact Info) Description 01/03/2023 Telephone [facility] MEDICINE [address] [place] [address] Lupe Moralez FNP [address] [place] [address] Social History Tobacco Use Types Packs/Day Years [...] - 01/09/2023 9:04 AM EDT T/c to [phone] to [facility] to inform below message from provider, No answer. LVM to call back [phone]. * Telephone Encounter - BE Chavez - 01/09/2023 7:41 AM EDT DME request for nebulizer generated. Thank you. * Telephone Encounter - Esthela Hidalgo - 01/03/2023 12:55 PM EDT Tc from [facility] from [facility] requesting a nebulizer machine . Any question please call phone # [phone] ext [phone]. Please fax order to [phone] documented in this encounter Plan of Treatment Upcoming Encounters Date Type Department Care Team (Late st Contact Info) Description 08/03/2025 11:30 AM EST Office Visit [facility] MEDICINE [address] [place] [address] Lupe Moralez FNP [address] [place] [address] documented as of this encounter Visit Diagnoses Not on filedocumented in this encounter Additional Health Concerns Assessment Noted Time PHQ-9 Depression Total Score: 5 01/03/20 23 2:27 PM EDT documented as of this encounter Care Teams Distillation Operator Relationship Specialty Start Date End Date Lupe Moralez FNP [address] [place] [address] PCP - General Family Medicine 04/16/22 Perry Quintero MD [address] [place] [address] Cardiology 06/14/24 documented as of this encounter
--- OUTSIDE RECORDS SUMMARY | 2025-05-17 12:28 | XMS_ITS | Encounter Summary ---
Author Organization [employer] Address [address] [facility] 7t [place] [address] Care Team Providers Care Dismantler Name Role Phone Lupe Moralez Primary Care Provider [phone] Perry Quintero MD Unavailable [phone] Reason for Visit * Reason Onset Date Comments ER Follow-up 01/27/2023 Encounter Details Date Type Department Care Team ([facility] st Contact Info) Description 01/27/2023 Telephone [facility] MED[facility]INE [address] [place] [address] Lupe Moralez FNP [address] [place], [place] [phone] ER Follow-up Social History Tobacco Use Types [...] Miscellaneous Notes * Telephone Encounter - Loly Liomn RN - 01/28/2023 9:55 AM EDT T/C to [phone] for below message, pt. Is doing good. Pt. Schedule for ED follow up on 02/05/2023. Pt. Also advised to go to nearest ED in case of any new, return or worsening symptoms including CP, SOB or breathing problem. [facility] hours are reviewed. ED summery printed and scanned into pt's chart. * Telephone Encounter - Eleni Rahman - 01/27/2023 1:44 PM EDT Patient calling to report ED visit on 01/23/23 at [facility]. Seen for breathing trouble and asthma. Patient advised will forward to team nurse for follow up. Patient and daughter speaks khmer. documented in this encounter Plan of Treatment Upcoming Encounters Date Type Department Care Team (Late st Contact Info) Description 08/03/2025 11:30 AM EST Office Visit [facility] MED[facility]INE [address] [place] [address] Lupe Moralez FNP [address] [place] [address] documented as of this encounter Visit Diagnoses Not on filedocumented in this encounter Additional Health Concerns Assessment Noted Time PHQ-9 Depression Total Score: 5 01/03/20 23 2:27 PM EDT documented as of this encounter Care Teams Dismantler Relationship Specialty Start Date End Date Lupe Moralez FNP [address] [place] [address] PCP - General Family Medicine 04/16/22 Perry Quintero MD [address] [place] [address] Cardiology 06/14/24 documented as of this encounter
--- OUTSIDE RECORDS SUMMARY | 2025-05-17 12:28 | XMS_ITS | Encounter Summary ---
Author Organization [employer] Address [address] [facility] 7t [place] [address] Care Team Providers Care Cottrell Operator Name Role Phone Lupe Moralez Primary Care Provider [phone] Perry Quintero MD Unavailable [phone] Reason for Visit * Reason Comments Med Refill Encounter Details Date Type Department Care Team (Late st Contact Info) Description 01/17/2025 Refill [facility] MEDICINE [address] [place] [address] Lupe Moralez FNP [address] [place], [place] [phone] Type 2 diabetes mellitus without complication, without long-term current use of insulin ([facility]) Social History Tobacco Use Types Packs/Day Years [...] Description 08/03/2025 11:30 AM EST Office Visit [facility] MEDICINE [address] [place] [address] Lupe Moralez FNP [address] [place] [address] documented as of this encounter Visit Diagnoses Diagnosis Type 2 diabetes mellitus without complication, without long-term current use of insulin (HCC) documented in this encounter Additional Health Concerns Assessment Noted Time PHQ-9 Depression Total Score: 4 02/09/20 24 10:42 AM EDT documented as of this encounter Care Teams Cottrell Operator Relationship Specialty Start Date End Date Lupe Moralez FNP [address] [place] [address] PCP - General Family Medicine 04/16/22 Perry Quintero MD [address] [place] [address] Cardiology 06/14/24 documented as of this encounter
--- OUTSIDE RECORDS SUMMARY | 2025-05-17 12:28 | XMS_ITS | Encounter Summary ---
Author Organization [employer] Address [address] [facility] 7t [place] [address] Care Team Providers Care Old Coin Dealer Name Role Phone Lupe Moralez Primary Care Provider [phone] Perry Quintero MD Unavailable [phone] Reason for Visit * Reason Onset Date Comments triage 12/23/2022 Encounter Details Date Type Department Care Team ([facility] st Contact Info) Description 12/23/2022 Telephone [facility] MEDICINE [address] [place] [address] Lupe Moralez FNP [address] [place], [place] [phone] triage Social History Tobacco Use Types Packs/Day [...] Triage call returned to patient Daughter via [employer] Intern [id number]. Patient with onset of flu like symptoms [...] Wheezing The caller accepted this outcome speaks danish documented in this encounter Plan of Treatment Upcoming Encounters Date Type Department Care Team ([facility] st Contact Info) Description 08/03/2025 11:30 AM EST Office Visit [facility] MEDICINE [address] [place], [place] [phone] Lupe Moralez FNP [address] [place], [place] [phone] documented as of this encounter Visit Diagnoses Not on filedocumented in this encounter Care Teams Old Coin Dealer Relationship Specialty Start Date End Date Lupe Moralez FNP [address] [place] [address] PCP - General Family Medicine 04/16/22 Perry Quintero MD [address] [place] [address] Cardiology 06/14/24 documented as of this encounter
--- OUTSIDE RECORDS SUMMARY | 2025-05-17 12:28 | XMS_ITS | Encounter Summary ---
Author Organization [employer] Address [address] [facility] 7t [place] [address] Care Team Providers Care Heel Cutter Name Role Phone Lupe Moralez Primary Care Provider [phone] Perry Quintero MD Unavailable [phone] Reason for Visit * Reason Onset Date Comments Med Refill 08/16/2024 Encounter Details Date Type Department Care Team ([facility] st Contact Info) Description 08/16/2024 Telephone [facility] PED[facility] [address] [place] [address] Lupe Moralez FNP [address] [place] [address] Med Refill Social History Tobacco Use Types [...] Medication was discontinued. * Telephone Encounter - Esthlea Hidalgo - 08/16/2024 1:36 PM EST TC from pt daughter requesting medication refill. Medications needing refill : glipiZIDE XL (Glucotrol XL) 5 MG 24 hr tablet To be sent to: [facility] - [place], [place] - [address] [facility] documented in this encounter Plan of Treatment Upcoming Encounters Date Type Department Care Team (Late st Contact Info) Description 08/03/2025 11:30 AM EST Office Visit [facility] MEDICINE [address] [place] [address] Lupe Moralez FNP [address] [place] [address] documented as of this encounter Visit Diagnoses Not on filedocumented in this encounter Additional Health Concerns Assessment Noted Time PHQ-9 Depression Total Score: 4 02/09/20 24 10:42 AM EDT documented as of this encounter Care Teams Heel Cutter Relationship Specialty Start Date End Date Lupe Moralez FNP [address] [place] [address] PCP - General Family Medicine 04/16/22 Perry Quintero MD [address] [place] [address] Cardiology 06/14/24 documented as of this encounter
--- OUTSIDE RECORDS SUMMARY | 2025-05-17 12:28 | XMS_ITS | Encounter Summary ---
Author Organization [employer] Address [address] [facility] 7t [place] [address] Care Team Providers Care Systems Software Manager Name Role Phone Lupe Moralez Primary Care Provider [phone] Perry Quintero MD Unavailable [phone] Reason for Visit * Reason Onset Date Comments question 03/02/2024 Encounter Details Date Type Department Care Team ([facility] st Contact Info) Description 03/02/2024 Telephone [facility] MEDICINE [address] [place] [address] Lupe Moralez FNP [address] [place], [place] [phone] question Social History Tobacco Use Types Packs/Day [...] directed to another line to discuss about [facility] locations that are covered by [employer] to [...] it's an insurance thing gave insurance number [id number] documented in this encounter Plan of Treatment Upcoming Encounters Date Type Department Care Team (Late st Contact Info) Description 08/03/2025 11:30 AM EST Office Visit [facility] MEDICINE [address] [place] [address] Lupe Moralez FNP [address] [place] [address] documented as of this encounter Visit Diagnoses Not on filedocumented in this encounter Additional Health Concerns Assessment Noted Time PHQ-9 Depression Total Score: 4 02/09/20 24 10:42 AM EDT documented as of this encounter Care Teams Systems Software Manager Relationship Specialty Start Date End Date Lupe Moralez FNP [address] [place] [address] PCP - General Family Medicine 04/16/22 Perry Quintero MD [address] [place] [address] Cardiology 06/14/24 documented as of this encounter
--- OUTSIDE RECORDS SUMMARY | 2025-05-17 12:28 | XMS_ITS | Clinical Summary ---
Author Organization [facility] Address [address] [facility] [address] [place] [address] Phone Care Team Providers Care County Treasurer Name Role Phone Pcp, Unknown Primary Care [...] (2 of 2 - PCV) 2020 2019 INFLUENZA VACCINE (#1) 2025 COVID-19 VACCINE (1 - 2024-2 6 season) 2025 HEPATITIS A VACCINES Aged Out No long [...] topic Medical Devices Not on file Insurance [facility] BARRY GARCIA [id number] [place] [address] [address] [place] [address] MEDICARE REPLACEMENT [facility] MEDICARE REPLACEMENT Care Teams County Treasurer Relationship Specialty Start Date End Date Pcp, Unknown PCP - General 07/04/23 Additional Source Comments The information contained in this document represents components of the legal health record. It is not the complete legal health record.[facility]
--- OUTSIDE RECORDS SUMMARY | 2025-05-17 12:28 | XMS_ITS | Clinical Summary ---
Author Organization [facility] Address [address] [place] [address] Care Team Providers Care Intellectual Property Manager Name Role Phone Unavailable Primary Care [...] patient's age to complete this topic Insurance [facility] ([id number]) [facility] ([id number])
--- OUTSIDE RECORDS SUMMARY | 2025-05-17 12:28 | XMS_ITS | Clinical Summary ---
Author Organization [employer] Address [address] [place] [address] [address] [place] [address] Care Team Providers Care Welt Edge Rounder Name Role Phone ClarissaLupe alegria BE Primary Care Provider [phone] Perry Quintero MD Unavailable [phone] Allergies Active Allergy Reactions Criticality Noted [...] 2022 Active Blood Glucose Monitoring Suppl (FreeStyle Alleghany Lite) w/Device kitIndications:Type 2 diabetes mellitus without complication, without long-term current use of insulin (HCC) USE DIRECTED 1 kit 2023 Active spironolactone (Aldactone) 25 MG tabletIndications:Cor onary arteriosclerosis TAKE 1 TABLET BY MOUTH EVERYDAY AT NOON 90 tablet 1 2023 Active clopidogrel (Plavix) 75 MG tablet Take 1 tablet by mouth Once per day. 2023 Active metoprolol succinate XL (Toprol-XL) 25 MG 24 hr tablet Take 1 tablet by mouth Once per day. at noon 2023 Active TRUEplus Lancets 33G miscIndications:Type 2 diabetes mellitus without complication, without long-term current use of insulin ([facility]) TEST BLOOD SUGAR TWICE DAILY AND NEEDED 100 each 11 2023 Active albuterol (Ventolin HFA) 108 (90 Base) MCG/ACT inhalerIndications:Sh ortness of breath Inhale 2 puffs Every 4-6 hours as needed for wheezing or shortness of breath. 18 g 11 2023 Active ammonium lactate (Amlactin) 12 % cream Apply topically if needed for dry skin. 385 g 3 06/14 Active Cyanocobalamin (B-12) 1000 MCG sublingual tablet TAKE 1 TABLET BY MOUTH ONCE WEEKLY FRIDAY MORNING (DISSOLVE) 36 tablet 2023 Active Multiple Vitamins-Minerals (CertaVite Senior/Antioxidant) tablet TAKE 1 TABLET BY MOUTH EVERY OTHER DAY AT NOON 90 tablet 3 2023 Active Alcohol Swabs (Alcohol Prep) 70 % pads USE DIRECTED 100 each 11 2024 Active tiZANidine (Zanaflex) 2 MG tabletIndications:Spa sm of muscle of lower back Take 1 tablet (2 mg) by mouth Once daily as needed for muscle spasms. 30 tablet 08/27 Active glipiZIDE XL (Glucotrol XL) 5 MG 24 hr tabletIndications:Typ e 2 diabetes mellitus without complication, without long-term current use of insulin ([facility]) Take 1 tablet (5 mg) by mouth [...] EVERY MORNING 90 tablet 3 2024 Active Blood Pressure kitIndications:Heart failure with reduced ejection fraction (HCC) Please use to check blood pressure as directed. Please fit to patient. Thank you. 1 kit 2024 Active Lidocaine 4 % patch Apply topically. Active Melatonin 2.5 MG chewable tablet Chew. Take 1 to 2 gummies prn at bedtime Active Acetaminophen Extra Strength 500 MG tablet TAKE 1 TABLET BY MOUTH EVERY 6 HOURS NEEDED FOR PAIN OR FOR FEVER 120 tablet 3 2024 Active budesonide-formoterol (Symbicort) 160-4.5 MCG/ACT inhalerIndications:Sh ortness of breath INHALE 1 PUFF BY MOUTH TWICE DAILY IN THE MORNING AND AT BEDTIME RINSE MOUTH AFTER USING. 10.2 g 3 2024 Active hydrocortisone 2.5 % ointmentIndications:D ry skin Apply topically Once per day. Apply to back of heels mid-day x 2 weeks. 30 g 1 2024 Active FREESTYLE LITE test strip TEST BLOOD SUGAR TWICE DAILY AND NEEDED 100 strip 11 2024 Active hydrocortisone (Anusol-HC) 2.5 % rectal creamIndications:Inte rnal hemorrhoids Insert into the rectum 2 times daily. 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 90 tablet 1 2024 Active simethicone (Gas Relief Extra Strength) 125 MG chewable tablet CHEW 1 TABLET BY MOUTH EVERY 6 HOURS NEEDED FOR GAS 120 tablet 3 2024 Active polyethylene glycol, PEG, 3350 (MiraLax) 17 GM/SCOOP powder Mix 17 grams of Miralax in (4 to 8 ounces) of beverage once daily as needed for constipation. Drink by mouth. 527 g 2 2024 Active metFORMIN (Glucophage) 500 MG tabletIndications:Typ e 2 diabetes mellitus without complication, without long-term current use of insulin (HCC) TAKE 1 TABLET BY MOUTH TWICE DAILY AT NOON AND IN THE EVENING WITH MEALS 180 tablet 1 2024 Active pantoprazole (ProtoNix) 40 MG EC tablet TAKE 1 TABLET BY MOUTH EVERY MORNING BEFORE BREAKFAST 90 tablet 1 2024 Active traZODone (Desyrel) 50 MG tabletIndications:Sle ep difficulties TAKE 1/2 TO 1 TABLET BY MOUTH AT BEDTIME NEEDED FOR SLEEP 30 tablet 3 2024 Active gabapentin (Neurontin) 300 MG capsuleIndications:Ne uropathy TAKE 1 CAPSULE BY MOUTH EVERYDAY AT NOON 90 capsule 1 04/21 Discontinued polyethylene glycol, PEG, 3350 (Glycolax) 17 GM/SCOOP powder MIX 1 CAPFUL (17 GRAM) IN WATER OR JUICE AND TAKE EVERY DAY MAY INCREASE TO 2 TO 3 TIMES DAILY NEEDED FOR CONSTIPATION 550 g 3 05/04 Discontinued( Reorder (will not trigger notification to Pharmacy)) simethicone (Mylicon) 80 MG chewable tablet Chew 1 tablet (80 mg) every 6 (six) hours if needed for flatulence. 30 tablet 3 05/04 Discontinued( Therapy completed) pantoprazole (ProtoNix) 40 MG EC tablet TAKE 1 TABLET BY MOUTH EVERY MORNING BEFORE BREAKFAST 90 tablet 1 05/16 Discontinued metFORMIN (Glucophage) 500 MG tabletIndications:Typ e 2 diabetes mellitus without complication, without long-term current use of insulin (HCC) TAKE 1 TABLET BY MOUTH TWICE DAILY AT NOON AND IN THE EVENING WITH MEALS 180 tablet 1 05/16 Discontinued gabapentin (Neurontin) 600 MG tabletIndications:Tristian ropathy TAKE 1 TABLET BY MOUTH EVERY EVENING 90 tablet 1 04/21 Discontinued( Reorder (will not trigger notification to Pharmacy)) ferrous gluconate (Fergon) 324 (38 Fe) MG tabletIndications:Ane grant, unspecified type TAKE 1 TABLET BY MOUTH EVERY MORNING (FRIDAY, FRIDAY, AND FRIDAY) 36 tablet 05/04 Discontinued( Therapy completed) traZODone (Desyrel) 50 MG tabletIndications:Sle ep difficulties TAKE 1/2 TO 1 TABLET BY MOUTH AT BEDTIME NEEDED FOR SLEEP 30 tablet 3 05/16 Discontinued( Reorder (will not trigger notification to Pharmacy)) ferrous sulfate ER 50 MG ER tablet Take 160 mg by mouth. 05/04 Discontinued( Therapy completed) simethicone (Gas Relief Extra Strength) 125 MG chewable tablet CHEW 1 TABLET BY MOUTH EVERY 6 HOURS NEEDED FOR GAS 120 tablet 3 05/04 Discontinued( Reorder (will not trigger notification to Pharmacy)) polyethylene glycol, PEG, 3350 (Glycolax) 17 GM/SCOOP powder MIX 1 CAPFUL (17 GRAM) IN WATER OR JUICE AND TAKE EVERY DAY MAY INCREASE TO 2 TO 3 TIMES DAILY NEEDED FOR CONSTIPATION 550 g 3 05/04 Discontinued Active Problems Problem Noted Date Diagnosed Date Other insomnia 02/22/2025 Overview (02/22/2025): Followed by [facility] [place] Assessment & Plan (02/22/2025 8:54 AM EDT): - Continues with trazodone 50mg and melatonin 10mg nightly Alkaline phosphatase elevation 02/22/2025 Assessment & Plan (05/04/2025 8:31 PM EDT): Lab Results Component Value Date ALP 300 (H) 02/10/2025 Elevated Alk phos, previously wnl. Bone specific alk phos wnl. Elevated GGT. CT abdominal/pelvis unremarkable 03/01/25 Denies any GI symptoms, asymptomatic Plan: repeat hepatic panel, GGT, and CBC Assessment & Plan (02/22/2025 9:39 AM EDT): Lab Results Component Value Date ALP 300 (H) 02/10/2025 Elevated Alk phos, previously wnl. Bone specific alk phos wnl. Elevated GGT. Plan for CT abd/pelvis w/ contrast for further eval. Ordered 02/11/25, priority urgent. Will follow up on imaging scheduling as pt reports has not yet been contacted to schedule. Osteoarthritis of first meta tarsophalangeal (MTP) joint [...] 6 ounces per day). Anemia 09/16/2024 Overview (02/22/2025): Lab Results Component Value Date HGB 8.2 (L) 02/21/2025 HGB 7.8 (A) 02/21/2025 HGB 8.3 (L) 02/10/2025 HGB 7.9 (A) 02/10/2025 HGB 9.9 (A) 12/30/2024 - Ferritin and Vit D wnl Sep 2024 Assessment & Plan (05/04/2025 8:22 PM EDT): Etiology: unknown Seen in [place] on 09/09/24 and had Hgb of 4.9. Recieved transfusion of about 6 units of blood on 09/11/24. Consult with [facility] Heme/Onc Sep: EGD/colonoscopy w/o evidence of bleed Continues with p.o. iron supplement, although discussed possible DC d/t SE. Has IV iron infusion scheduled for 02/22/25. Heme/Onc consults February & Mar 2025: SPEP normal, LDH mildly elevated, haptoglobin wnl. Ferritin level > 200, thus advised to discontinue PO iron Today, reports that her Hbg level was 11 during last Heme/Onc consult. Feeling much improved compared to the last few months. No longer taking Eliquis (still with Plavix). Plan to repeat CBC to confirm stability. Assessment & Plan (02/22/2025 8:52 AM EDT): -Hemoglobin stable over the past 2 weeks, although may be close to transfusion threshold. Pending return call from [facility] Heme/Onc Etiology: unknown Seen in [place] on 09/09/24 and had Hgb of 4.9. Recieved transfusion of about 6 units of blood on 09/11/24. Consult with [facility] Heme/Onc Sep: EGD/colonoscopy w/o evidence of bleed Continues with p.o. iron supplement, although discussed possible DC d/t SE. Has IV iron infusion scheduled for 02/22/25. ED precautions reviewed Assessment & Plan (11/07/2024 7:40 PM EDT): -Hemoglobin stable Etiology unknown - GIB in differential. Risk factors: AC Seen in [place] on 09/09/24 and had Hgb of 4.9. Recieved transfusion of about 6 units of blood on 09/11/24. Records requested from [place], available lab work reviewed and sent to scan. Consult with [facility] Heme/Onc Sep 2024, established with [facility] GI October Plan for upcoming EGD/colonoscopy December 2024 Cont p.o. iron supplement. Follow-up with any side effects. ED precautions reviewed Assessment & Plan (09/26/2024 1:37 PM EST): -Hemoglobin stabilized/mild increase over the past week Etiology unknown - GIB in differential. Risk factors: AC Seen in [place] on 09/09/24 and had Hgb of 4.9. Recieved transfusion of about 6 units of blood on 09/11/24. Records requested from [place], available lab work reviewed and sent to scan. Consult with [facility] Heme/Onc 09/21/2024, scheduled with [facility] GI 10/07/2024 Shared decision making to start p.o. iron supplement. Follow-up with any side effects. ED precautions reviewed Assessment & Plan (09/17/2024 7:57 PM EST): Etiology unknown - GIB in differential. Risk factors: AC Seen in [place] on 09/09/24 and had Hgb of 4.9. Recieved transfusion of about 6 units of blood on 09/11/24. Records requested from [place], available lab work reviewed and sent to scan. Referral to [facility] Heme/Onc and [facility] for further eval ED precautions reviewed Assessment & Plan (09/16/2024 1:49 PM EST): Etiology unknown. Seen in [place] on 09/09/24 and had Hgb of 4. Got transfusion of about 6 units of blood on 09/11/24. Requesting records from [place]. -ordered CBC -has follow-up tomorrow. Spasm of [...] of both ears 02/13/2024 Assessment & Plan (11/07/2024 7:41 PM EDT): Wears hearing aids Location where she was previously going for follow up has closed, in need of updated referral. Previous location: [place] [facility] Referral to [facility] Audiology placed 02/13/24 Referral to ENT placed November 2024 Assessment & Plan (02/13/2024 4:49 PM EDT): Wears hearing aids Location where she was previously going for follow up has closed, in need of updated referral. Previous location: [place] with [facility]. Referral to [facility] Audiology placed 02/13/24 Also in need of [...] 10-15% on 11/21/23 11/25/23: ICD Implant at [facility] with Dr. Jacob 12/23/23: EF improved [...] 05/13/2023 3 Stage 3a chronic kidney disease (CMS/HCC) 202205/13/2023 Assessment & Plan (12/08/2023 7:19 AM EDT): Followed by [facility] (Dr. José Miguel Mojica) Gastroesophageal reflux disease 02/27/2023 Overview (02/27/2023): -Pt reports med has been helpful for symptom control -Switch from omeprazole to pantoprazole as less med interaction with plavix Assessment & Plan (02/27/2023 12:54 PM EDT): -Increase to pantoprazole 20-40mg daily -Reports previous eval with endoscopy and colonoscopy in [place] approx 2 years with rec for follow [...] Plan (10/07/2023 4:40 PM EST): [facility] & Dr. Brennan Cardiac stent placement: 12/17/16, [...] Assessment & Plan (06/14/2023 12:10 PM EST): [facility] Qu[facility] & Dr. Brennan Cardiac stent placement: 12/17/16 Aortic valve replacement: May 2023 Current cardiac regimen: carvedilol 12.5mg BID DC December 2022 Entresto 24-26mg BID furosemide 20mg daily spironolactone 25mg daily. Antiplatelet - clopidogrel 75 mg daily Statin - simvastatin 20mg nightly Denies chest pain, SOB, palpitations, N/V/D. ED Precautions Assessment & Plan (02/27/2023 12:54 PM EDT): [facility] Cardiac stent placement on 12/17/16 Current cardiac regimen: carvedilol 12.5mg BID DC December 2022 Entresto 24-26mg BID furosemide 20mg daily spironolactone 25mg daily. Antiplatelet - clopidogrel 75 mg daily Statin - simvastatin 20mg nightly Denies chest pain, SOB, palpitations, N/V/D. Assessment & Plan (01/05/2023 3:36 PM EDT): Followed by [facility] Dr. Quintero Cardiac stent placement on 12/17/16 Current cardiac regimen: carvedilol 25mg BID DC December 2022 Entresto 24-26mg BID furosemide 20mg daily spironolactone 25mg daily. Antiplatelet - clopidogrel 75 mg daily Statin - simvastatin 20mg nightly Denies chest pain, SOB, palpitations, N/V/D. Hypothyroidism 07/09/2022 Assessment & Plan (10/07/2023 4:44 PM EST): Lab Results Component Value Date TSH 2.61 02/02/2023 Type 2 diabetes mellitus without complications 1 09/09/2021 Assessment & Plan (05/04/2025 8:32 PM EDT): Lab Results Component Value Date HGBA1C 7.6 (A) 05/04/2025 -A1c & lipids well controlled -Eye Exam: established with ophthalmology -Dental: referral to [facility] Dental 09/05/23 -Monofilament: abnormal on 04/16/22 and pt referred to podiatry. Last foot eval 09/17/2024. DME request for diabetic shoes sent 09/26/24. -ACEi/ARB: yes -Statin: yes -Cont metformin 500mg [...] 12/23/2023 LDLCHOLCAL 68 11/01/2022 Assessment & Plan (11/07/2024 7:39 PM EDT): Lab Results Component Value Date HGBA1C 6.9 (A) 09/17/2024 -A1c & lipids well controlled -Eye Exam: established with ophthalmology -Dental: referral to [facility] Dental 09/05/23 -Monofilament: abnormal on 04/16/22 and pt referred to podiatry. Last foot eval 09/17/2024. DME request for diabetic shoes sent 09/26/24. -ACEi/ARB: yes -Statin: yes -Cont metformin 500mg [...] 12/23/2023 LDLCHOLCAL 68 11/01/2022 Assessment & Plan (09/26/2024 1:36 PM EST): Lab Results Component Value Date HGBA1C 6.9 (A) 09/17/2024 -A1c & lipids well controlled -Eye Exam: established with ophthalmology -Dental: referral to [facility] Dental 09/05/23 -Monofilament: abnormal on [...] Exam: established with ophthalmology -Dental: referral to [facility] Dental 09/05/23 -Monofilament: abnormal on [...] Exam: established with ophthalmology -Dental: referral to [facility] Dental 09/05/23 -Monofilament: abnormal on [...] Exam: established with ophthalmology -Dental: referral to [facility] Dental 09/05/23 -Monofilament: abnormal on [...] Exam: established with ophthalmology -Dental: referral to [facility] Dental 09/05/23 -Monofilament: abnormal on [...] Exam: established with ophthalmology -Dental: referral to [facility] Dental 09/05/23 -Monofilament: abnormal on [...] Exam: established with ophthalmology -Dental: referral to [facility] Dental 09/05/23 -Monofilament: abnormal on [...] as needed Obstructive sleep apnea syndrome 04/17/2022 Overview (02/22/2025): Following with [facility] Neurology & Sleep in [place], [place] Assessment & Plan (05/04/2025 8:19 PM EDT): - Cont APAP 5-15cm H20 - Continues with good adherence and response to CPAP Assessment & Plan (02/22/2025 8:53 AM EDT): Continues with good adherence and response to CPAP Assessment & Plan (07/29/2022 7:55 PM EST): -Following with [facility] Sleep Medicine Resolved Problems Problem Noted Date Diagnosed Date Resolved Date Chest wall contusion, left, initial encounter 06/06/2006/14/2023 Assessment & Plan (06/06/2023 1:49 PM EDT): Recommended diclofenac gel, tylenol and heat to effected area I will prescribe incentive spirometer to prevent atelectasis. Use albuterol q4h Hospital discharge follow-up 05/19/2023 06/14/2023 Assessment & Plan (05/19/2023 8:19 PM EDT): Patient was hospitalized at [facility] from 05-06 to 05-07 due to chronic [...] Acute kidney injury 04/14/2023 10/05/19 Overview (04/14/2023): S/t bactrim 03/2023 Shortness of breath 01/05/2023 [...] Encounters Date Type Department Care Team Description 05/16/2025 Refill [facility] [address] [place] [address] Lupe Moralez FNP Type 2 diabetes mellitus without complication, without long-term current use of insulin (HCC); Sleep difficulties 05/14/2025 Refill [facility] [address] [place] [phone] Therese Diana MD Sleep difficulties 05/04/2025 11:15 AM EDT Office Visit [facility] [address] [place] [phone] Lupe Moralez FNP Alkaline phosphatase elevation (Primary Dx); Type 2 diabetes mellitus without complication, without long-term current use of insulin (HCC); Coronary arteriosclerosis; Obstructive sleep apnea syndrome; Other insomnia; Anemia, unspecified type 05/04/2025 Travel 04/27/2025 Patient Outreach [facility] [address] [place] [phone] Lupe Moralez FNP Pre-visit Planning (SDOH screening completed on 09/17/24 ) 04/21/2025 Refill [facility] [address] [place] [address] Lupe Moralez FNP Neuropathy 04/14/2025 Refill [facility] [address], [place] [phone] Lupe Moralez FNP Neuropathy 04/05/2025 1:40 PM EDT Office Visit [facility] [address] [place] [phone] Yg Reyes MD Frontal sinusitis, unspecified chronicity (Primary Dx); Frontal sinus pain; Sore throat; Ear pain, bilateral; Cough, unspecified type; Stuffy and runny nose 04/05/2025 Travel 03/28/2025 Telephone [facility] [address], [place] [phone] Lupe Moralez FNP [facility] Consult 03/18/2025 Refill [facility] [address], [place] [phone] Ximena Law MD 03/17/2025 Refill [facility] [address] [place] [address] Lupe Moralez FNP Osteoarthritis of first metatarsophalangeal (MTP) joint of right foot 03/16/2025 Orders Only [facility] [address] [place] [address] Lupe Moralez, TECHNICAL OPERATIONS VICE PRESIDENT Elevated liver enzymes (Primary Dx) 03/01/2025 Orders Only [facility] External Provider, [facility] 02/23/2025 Results Follow-Up [facility] [address] [place] [address] Lupe Moralez TECHNICAL OPERATIONS VICE PRESIDENT POCT Hemoglobin, CBC auto differential 02/21/2025 11:00 AM EDT Office Visit [facility] [address] [place] [address] Lupe Moralez, TECHNICAL OPERATIONS VICE PRESIDENT Anemia, unspecified type (Primary Dx); Obstructive sleep apnea syndrome; Other insomnia; Alkaline phosphatase elevation 02/21/2025 Orders Only GENERIC EXTERNAL DATA DEPARTMENT Provider, Generic External Data 02/21/2025 Travel from Last 3 Months Immunizations Immunization Administration Dates Next Due Influenza High-dose Quadriva [...] Date Recorded Patient Health Questionnaire-9 Score 5 02/21/2025 Patient Health Questionnaire-9 Score 5 02/21/2025 Last PHQ-9: Questionnaire Data Not on file 0 02/21/2025 Housing Stability Answer Date Recorded What is [...] Answer Date Recorded Patient Health Questionnaire-2 Score 1 02/21/2025 Internet Access Answer Date Recorded Internet Access [...] Sign Reading Time Taken Comments Blood Pressure 120/68 05/04/2025 12:03 PM EDT Pulse 71 05/04/2025 12:03 PM EDT Temperature 36.2 C (97.1 F) 05/04/2025 12:03 PM EDT Respiratory Rate 20 05/04/2025 12:03 PM EDT Oxygen Saturation 98% 05/04/2025 12:03 PM EDT Inhaled Oxygen Concentration - - Weight 88.5 kg (195 lb 2 oz) 05/04/2025 12:03 PM EDT Height 160 cm (5' 3 ) 05/04/2025 12:03 PM EDT Body Mass Index 34.56 05/04/2025 12:03 PM EDT Plan of Treatment Upcoming Encounters Date Type Department Care Team (Late st Contact Info) Description 08/03/2025 11:30 AM EST Office Visit [facility] [address] [place] [address] Lupe Moralez, TECHNICAL OPERATIONS VICE PRESIDENT [address] [place] [address] Health Maintenance Due Date Last Done Comments Dental Oral Exam 1944 Dental Prophylaxis 1944 Diabetes: Foot Exam 1954 Eye Exam 1954 Alcohol/Substance Use Screening 1956 RSV Patients and Patients Aged 60 years or older (1 - 1-dose 75+ series) 2019 Zoster Vaccines (3 of 3) 07/02/2022 05/07/2022, 11/03 Dental X-Ray: Bitewings 02/18/2025 02/18/2024 COVID-19 Vaccine ( - season) 2025 07/03/2021, 10/24/2020, 10/02/2020 Influenza Vaccine (#1) 2025 , 04/16/2022, 2019, Additional history exists DTaP/Tdap/Td Vaccines (1 - Tdap) 06/14/2025 Postponed from 1963 (Other Patient Reasons) Diabetes: Urine Protein Screening 06/14/2025 06/14/2024 Lipid Panel 06/14/2025 06/14/2024, 12/03, 11/01/2022, Additional history exists Diabetes: Hemoglobin A1C 08/04/2025 025, 12/30/2024, 09/17/2024, Additional history exists SDOH Screening 09/17/2025 09/17/2024 Depression Screening 02/21/2026 02/21/2025, 02/22/20 25 Tobacco Screening 05/04/2026 05/04/2025 Dental X-Ray: Full Mouth 02/18/2027 02/18/2024 Pneumococcal [...] patient's age to complete this topic Meningococcal B Vaccine Aged Out No l onger eligible based on patient's age to complete [...] Procedure Name Priority Date/Time Associated Diagnosis Comments GGT Routine 05/17/2025 10:55 AM EDT Alkaline phosphatase elevation CBC WITH AUTO DIFFERENTIAL Routine 05/17/2025 10:55 AM EDT Coronary arteriosclerosis HEPATIC FUNCTION PANEL Routine 05/17/2025 10:55 AM EDT Alkaline phosphatase elevation POCT GLYCATED HEMOGLOBIN, TOTAL Routine 05/04/2025 12:06 PM EDT Type 2 diabetes mellitus without complication, without long-term current use of insulin (HCC) POCT GLUCOSE Routine 05/04/2025 12:05 PM EDT Type 2 diabetes mellitus without complication, without long-term current use of insulin (HCC) POCT RAPID STREP A Routine 04/05/2025 1: [address]T Sore throat [address] ABDOMEN PELVIS W CONTRAST Routine 03/01/2025 6:08 PM EDT LYME PCR SOURCE Routine 02/21/2025 1:45 PM EDT METHYLMALONIC ACID Routine 02/21/2025 1: 45 PM EDT LYME SYNOVIAL FLUID PCR Routine 02/21/2025 1:45 PM EDT HOMOCYSTEINE Routine 02/21/2025 1:45 PM EDT VITAMIN B12/FOLATE, SERUM PANEL Routine 02/21/2025 1:45 PM EDT TSH W/REFLEX TO FT4 Routine 02/21/2025 1 :45 PM EDT VITAMIN D,25-OH,TOTAL,IA Routine 02/21/2025 1:45 PM EDT FERRITIN Routine 02/21/2025 1:45 PM EDT IRON AND TOTAL IRON BINDING CAPACITY Routine 02/21/2025 1:45 PM EDT CBC WITH AUTO DIFFERENTIAL Routine 02/21/2025 1:45 PM EDT Anemia, unspecified type POCT HEMOGLOBIN Routine 02/21/2025 11:40 AM EDT Anemia, unspecified type ALBUMIN, RANDOM URINE W/CREATININE Routine 06/14/2024 12:58 PM EST Type 2 diabetes mellitus without complication, without long-term current use of insulin ([facility]) Healthcare maintenance LIPID PANEL, STANDARD Routine 06/14/2024 12:51 PM EST Type 2 diabetes mellitus without complication, without long-term current use of insulin ([facility]) Healthcare maintenance INTRAORAL - COMPLETE SERIES OF RADIOGRAPHIC IMAGES Routine 02/18/2024 2:00 PM EDT from Last 3 Months or Most Recently Relevant to Health Maintenance Results * (ABNORMAL) CBC auto differential (05/17/2025 10:55 AM EDT) Only the most recent of2 resultswithin the time period is included. White Blood Count 8.4 4.8 - 10.8 X10*3/uL [facility] Red Blood Count 3.99(L) 4.20 - 5.50 X10*6/uL [facility] Hemoglobin 12.6 12.0 - 16.0 g/dl [facility] Hematocrit 39.4 37.0 - 47.0 % [facility] Mean Corpuscular Volume 98.7(H) 80.0 - 98.0 fL [facility] Mean Corpuscular Hemoglobin 31.6 27.0 - 33.0 pg [facility] Mean Corpuscular HGB Conc 32.0 31.0 - 35.0 g/dl [facility] Red Cell Distribution Width 14.8 11.0 - 16.0 % [facility] Platelet Count 181 160 - 400 X10*3/uL [facility] Mean Platelet Volume 11.6 9.4 - 12.3 fL [facility] Neutrophils Percent Auto 70.8 45 - 73 % [facility] Imm Gran Pct Auto 0.4 0.0 - 0.4 % [facility] Lymphocytes Percent Auto 18.4(L) 20 - 40 % [facility] Monocytes Percent Auto 6.9 2 - 11 % [facility] Eosinophils Percent Auto 2.9 0 - 4 % [facility] Basophils Percent Auto 0.6 0 - 2 % [facility] NRBC Pct Auto 0.0 0.0 - 0.2 /100WBC [facility] Neutrophils Absolute Auto 6.0 2.0 - 8.3 x10*3/uL [facility] Imm Gran Abs Auto 0.03 0.00 - 0.03 X10*3/uL [facility] Lymphocytes Absolute Auto 1.6 1.2 - 4.9 X10*3/uL [facility] Monocytes Absolute Auto 0.6 0.1 - 1.2 X10*3/uL [facility] Eosinophils Absolute Auto 0.2 0.0 - 0.4 X10*3/uL [facility] Basophils Absolute Auto 0.1 0.0 - 0.2 X10*3/uL [facility] NRBC Abs Auto 0.000 0.0 - 0.012 X10*3/uL [facility] Blood Venous blood specimen / Unknown 05/17/2025 10:55 AM EDT 05/17/2025 10:55 AM EDT Lupe Moralez TECHNICAL OPERATIONS VICE PRESIDENT LAB BLOOD ORDERABLES Final Res ult Performing Organization Address [facility]/ZIP Co de Phone Number [facility] [address] [place] [phone] * (ABNORMAL) Gamma Glutamyl Transferase (GGT) (05/17/2025 10:55 AM EDT) Gamma Glutamyl Transpeptidase 292(H) 7 - 33 U/L [facility] Blood Venous blood specimen / Unknown 05/17/2025 10:55 AM EDT 05/17/2025 10:55 AM EDT Lupe Moralez [facility] LAB BLOOD ORDERABLES Final Res ult Performing Organization Address [facility]/ZIP Co de Phone Number [facility] [address] [place] [phone] * (ABNORMAL) Hepatic Function Panel (05/17/2025 10:55 AM EDT) Bilirubin, Total 0.7 0.0 - 1.0 mg/dL [facility] Bilirubin, Direct 0.3 0.0 - 0.5 mg/dL [facility] Aspartate Amino Transferase 25 5 - 31 U/L [facility] Alanine Aminotransferase 30 0 - 31 U/L [facility] Total Protein 7.5 6.5 - 8.0 g/dL [facility] Albumin Level 4.7 3.5 - 5.0 g/dL [facility] Alkaline Phosphatase 206(H) 39 - 117 U/L [facility] Blood Venous blood specimen / Unknown 05/17/2025 10:55 AM EDT 05/17/2025 10:55 AM EDT Lupe Moralez TECHNICAL OPERATIONS VICE PRESIDENT LAB BLOOD ORDERABLES Final Res ult [facility] [address] [place] [phone] * (ABNORMAL) POCT Hgb A1c (05/04/2025 12:06 PM EDT) [facility] Hemoglobin A1C 7.6(A) 4.0 - 5.7 % QC Media Lot # [id number] Lot# Expiration Date 908,009 Blood 05/04/2025 12:0 6 PM EDT Lupe Clarissaraji TECHNICAL OPERATIONS VICE PRESIDENT POINT OF CARE TEST ENTER/EDIT ORDERABLES Final Result * (ABNORMAL) POCT Glucose (05/04/2025 12:05 PM EDT) [facility] Glucose Blood, POC 356(A) 60 - 200 mg/dL QC Media Lot # [id number] Lot# Expiration Date ,993,556 Blood Capillary blood specimen / Unknown 05/04/2025 12:05 PM EDT Lupe Romoraji TECHNICAL OPERATIONS VICE PRESIDENT POINT OF CARE TEST ENTER/EDIT ORDERABLES Final Result * POCT rapid strep A manually resulted (04/05/2025 1:10 PM EDT) [facility] Rapid Strep A Screen Negative Negative, None Detected Swab 04/05/2025 1:10 PM EDT us Yg Reyes MD POINT OF CARE TEST ENTER/EDIT OR DERABLES Final Result * CT Abdomen Pelvis w/ Contrast (03/01/2025 6:08 PM EDT) Anatomical Region Laterality Modality Body, Pelvis, Abdomen Computed T omography 03/01/2025 6:08 PM EDT Narrative 03/01/2025 6:09 PM EDT [address] [address] [address] Scan Report Signed with Isauro Patient: Charleen Gallo MR#: [id number] : 1945 Acct:[id number] Age/Sex: 79 / F ADM Date: 03/01/25 Loc: HO.CT Attending Dr: Lupe Moralez [facility] Ordering Physician: Hanna Cobb MD Date of Service: 03/01/25 Procedure(s): CT abdomen pelvis w IV con Accession Number(s): [id number] cc: Hanna Cobb MD; Lupe Moralez [facility] Report Number: [id number]: Total DLP = 676.00 mGy-cm ADDENDUM 03/01/2025 18:08:45 ADDENDUM: ADDENDUM: Clinician request for more information about the liver. Liver measures 16.4 cm in length, normal. There is no hepatic lesion identified by CT. Contour of the liver appears normal. Portal vein appears normal in caliber and is not dilated. There is no evidence of fatty infiltration within the liver. Patient is status post cholecystectomy with associated mild intrahepatic and extrahepatic biliary ductal dilatation, unchanged from prior imaging. No choledocholithiasis or pancreatic head mass. This document has been electronically signed by: Wallace Hayes MD on 03/14/2025 14:51:01 Addendum Dictated By: Wallace Hayes MD Addendum Signed By: <Electronically signed by Wallace Hayes MD in OV> 03/14/251450 Addendum Cosigned By: DD/ TD/TT: 03/14/2506/28/1451 CLINICAL HISTORY: Anemia, abnormal LFTs CT abdomen and pelvis with IV contrast. COMPARISON: CT abdomen and pelvis dated 03/15/23 at 15:51 EDT FINDINGS: Right breast prosthesis present. TAVR present. Coronary artery calcifications present within the LAD, circumflex. Cardiac pacemaker leads partially visualized. Small hiatal hernia. No focal hepatic lesion. Cholecystectomy. Normal spleen. Normal pancreas. Normal adrenal glands. Symmetric renal enhancement. Right renal cystic lesion measuring 0.9 cm. No hydronephrosis. Appendectomy. Oral contrast has progressed into the distal small bowel. No bowel obstruction. No evidence of diverticulitis. No mesenteric or retroperitoneal lymphadenopathy. Moderate aortoiliac atherosclerotic vascular calcifications. Urinary bladder is unremarkable given degree of distention. No adnexal mass. Aqcl-[id number] multilevel spondylosis. No acute fracture or suspicious bone lesion. IMPRESSION: 1. No cause for patient's symptoms identified. No bowel obstruction. No evidence of diverticulitis. This document has been electronically signed by: Wallace Hayes MD on 03/01/2025 18:08:45 Dictated By: Wallace Hayes MD Signed By: <Electronically signed by Wallace Hayes MD in OV> 03/01/251808 DD/ 07 TD/TT: 03/01/251807 Bareback Rider: Procedure Note Donotuseinterpreter, Image - 03/14/[address] [place] [address] [address] Scan Report Signed with Addenda Patient: Umberto Gallo#: [id number] : 5Acct:[id number] Age/Sex: 79 / FADM Date: 03/01/25 Loc: HO.CT Attending Dr: Lupe Moralez TECHNICAL OPERATIONS VICE PRESIDENT Ordering Physician: Hanna Cobb MD Date of Service: 03/01/25 Procedure(s): CT abdomen pelvis w IV con Accession Number(s): [id number] cc: Hanna Cobb MD; Lupe Moralez TECHNICAL OPERATIONS VICE PRESIDENT Report Number: [id number]: Total DLP = 676.00 mGy-cm ADDENDUM 03/01/2025 18:08:45 ADDENDUM: ADDENDUM: Clinician request for more information about the liver. Liver measures 16.4 cm in length, normal. There is no hepatic lesion identified by CT. Contour of the liver appears normal. Portal vein appears normal in caliber and is not dilated. There is no evidence of fatty infiltration within the liver. Patient is status post cholecystectomy with associated mild intrahepatic and extrahepatic biliary ductal dilatation, unchanged from prior imaging. No choledocholithiasis or pancreatic head mass. This document has been electronically signed by: Wallace Hayes MD on 03/14/2025 14:51:01 Addendum Dictated By: Wallace Hayes MD Addendum Signed By: <Electronically signed by Wallace Hayes MD in OV> 03/14/251450 Addendum Cosigned By: DD/ TD/TT: 03/14/2506/28/1451 CLINICAL HISTORY: Anemia, abnormal LFTs CT abdomen and pelvis with IV contrast. COMPARISON: CT abdomen and pelvis dated 03/15/23 at 15:51 EDT FINDINGS: Right breast prosthesis present. TAVR present. Coronary artery calcifications present within the LAD, circumflex. Cardiac pacemaker leads partially visualized. Small hiatal hernia. No focal hepatic lesion. Cholecystectomy. Normal spleen. Normal pancreas. Normal adrenal glands. Symmetric renal enhancement. Right renal cystic lesion measuring 0.9 cm. No hydronephrosis. Appendectomy. Oral contrast has progressed into the distal small bowel. No bowel obstruction. No evidence of diverticulitis. No mesenteric or retroperitoneal lymphadenopathy. Moderate aortoiliac atherosclerotic vascular calcifications. Urinary bladder is unremarkable given degree of distention. No adnexal mass. Iwaz-iw-wpelwuuf multilevel spondylosis. No acute fracture or suspicious bone lesion. IMPRESSION: 1. No cause for patient's symptoms identified. No bowel obstruction. No evidence of diverticulitis. This document has been electronically signed by: Wallace Hayes MD on 03/01/2025 18:08:45 Dictated By: Wallace Hayes MD Signed By: <Electronically signed by Wallace Hayes MD in OV> 03/01/251808 DD/ 07 TD/TT: 03/01/251807 Bareback Rider: [facility] External Provider IMG CT PROCEDURES Edited Result - Final * Lyme PCR Source (02/21/2025 1:45 PM EDT) Lyme PCR Source NOT GIVEN [facility] 02/21/2025 1:45 PM EDT 02/21/2025 4:11 PM EDT Generic External Data Provider HISTORICAL/NON OR DERABLE LABS Final Result [facility] [address] [place] [phone] * Lyme Synovial Fluid PCR (02/21/2025 1:45 PM EDT) Lyme Synovial Fluid PCR NOT DETECTED NOT DETECTED [facility] Comment:This test was develo ped and its analytical performancecharacteristics have been determined by [employer]. It has not been cleared or approved by theA. This assay has been validated pursuant to the CLIAregulations and is used for clinical purposes.For additional information, please refer [email or web address]/faq/[email or web address](This link is being provided for informational/educational purposes only.)THIS TEST WAS PERFORMED AT:[facility] [place] [id number] PARK MD 02/21/2025 1:45 PM EDT 02/21/2025 4:11 PM EDT Generic External Data Provider LAB BODY FLUIDS A ND STOOLS ORDERABLES Final Result [facility] [address] [place] [phone] * Vitamin D, 25-Hydroxy, Total, Immunoassay (02/21/2025 1:45 PM EDT) Vitamin D 25-OH Total 47.6 >30 ng/mL [facility] Comment: Health Based Reference Values*< 20 ng/mL Gnbtngcek01-49 ng/mL Insufficient> 30 ng/mL Sufficient*Daja LUNDBERG. N Engl J Med. 2007;357:266-280There is no well-established upper level of normal vitamin Dlevels. Some laboratories use 50 ng/mL as an upper limit ofnormal. However, toxicity is patient-dependent and may occurat any level. Careful correlation with the patient'spresentation is necessary and, if there is concern forvitamin D toxicity, treatment should be consideredirrespective of the serum level.Care must be taken in interpreting Vitamin D [...] confirmed with another method such as LC-MS/MS. 02/21/2025 1:45 PM EDT 02/21/2025 4:11 PM EDT Generic External Data Provider LAB BLOOD ORDERAB LES Final Result Performing Organization Address City/[facility]/ZIP Co de Phone Number [facility] [address] [place] [phone] * Vitamin B12 (Cobalamin) and Folate Panel, Serum (02/21/2025 1:45 PM EDT) Pathologist [facility] Vitamin B12 611 200 - 900 pg/mL [facility] Comment:NORMAL 200-900 PG/ML INDETERMINATE 160-199 PG/ML DEFICIENT < 160 PG/ML Folate 16.4 > or = 4.0 ng/mL [facility] Comment:Reference Values:> o r = 4.0 ng/mL< 4.0 ng/mL suggests folate deficiency Methotrexate, aminopterin and folinic acid(leucovorin) are chemotherapeutic agents whose molecularstructures are similar to folate; therefore, the Architectfolate assay cannot be used for patients using these drugs. 02/21/2025 1:45 PM EDT 02/21/2025 4:11 PM EDT Generic External Data Provider LAB BLOOD ORDERAB LES Final Result Performing Organization Address [facility]/ZIP Co de Phone Number [facility] [address] [place] [phone] * TSH with Reflex to Free T4 (02/21/2025 1:45 PM EDT) TSH reflex Free T4 1.39 0.32 - 4.0 uIU/mL [facility] 02/21/2025 1:45 PM EDT 02/21/2025 4:11 PM EDT us Generic External Data Provider LAB BLOOD ORDERAB LES Final Result Performing Organization Address City/[facility]/ZIP Co de Phone Number [facility] [address] [place] [phone] * Methylmalonic Acid (02/21/2025 1:45 PM EDT) Methylmalonic Acid 199 85 - 423 nmol/L [facility] Comment: Serum methylmalonic acid (MMA) levels are used todiagnose and monitor several rare inborn errors ofmetabolism, including methylmalonic aciduria. Theenzymatic conversion of MMA to succinic acid requiresvitamin B12 (adenosyl-cobalamin) as a cofactor. SerumMMA levels are also used for assessing functionalvitamin B12 deficiency. Vitamin B12 is essential forfetal neurodevelopment, particularly early inpregnancy. Undiagnosed maternal vitamin B12 deficiencymay be associated with adverse / outcomes,such as neural tube defects and intrauterine growthrestriction.[employer] utilized Multi-Modal Decomposition(MMD) analysis to establish first and second trimester-specific MMA reference intervals in , as givenbelow:MMA, First trimester (<13 wks gestation): 58-167 nmol/LMMA, Second trimester (13-23 wks gestation):63-241 nmol/LThis test was developed and its analytical performancecharacteristics have been determined by [employer]. It has not been cleared or approved by theFDA. This assay has been validated pursuant to the CLIAregulations and is used for clinical purposes.THIS TEST WAS PERFORMED AT:[id number] [place] [id number] MYERS MD,PHD 02/21/2025 1:45 PM EDT 02/21/2025 4:11 PM EDT us Generic External Data Provider LAB BLOOD ORDERAB LES Final Result Performing Organization Address City/[facility]/ZIP Co de Phone Number [facility] [address] [place] [phone] * (ABNORMAL) Iron And Total Iron Binding Capacity (02/21/2025 1:45 PM EDT) Iron 167(H) 30 - 160 mcg/dL [facility] Total Iron Binding Capacity 355 228 - 428 mcg/dL [facility] Percent Iron Saturation 47 15 - 50 % [facility] Unsaturated Iron Binding 188 ug/dL [facility] 02/21/2025 1:45 PM EDT 02/21/2025 4:11 PM EDT Generic External Data Provider LAB BLOOD ORDERAB LES Final Result Performing Organization Address [facility] Co de Phone Number [facility] [address] [place] [phone] * (ABNORMAL) Homocysteine (02/21/2025 1:45 PM EDT) Pathologist [facility] Homocysteine 16.4(A) < or = 13.4 umol/L [facility] Comment:Homocysteine is incr eased by functional deficiency offolate or vitamin B12. Testing for methylmalonic aciddifferentiates between these deficiencies. Other causesof increased homocysteine include renal failure, folateantagonists such as methotrexate and phenytoin, andexposure to nitrous oxide.Elaina Watts, et al., [employer] Med. 1999;131(5):331-9.THIS TEST WAS PERFORMED AT:[facility] [address] [id number] PARK MD 02/21/2025 1:45 PM EDT 02/21/2025 4:11 PM EDT Generic External Data Provider LAB BLOOD ORDERAB LES Final Result Performing Organization Address [facility] Co de Phone Number [facility] [address] [place] [phone] * (ABNORMAL) Ferritin (02/21/2025 1:45 PM EDT) Ferritin 9(L) 10 - 250 ng/mL [facility] 02/21/2025 1:45 PM EDT 02/21/2025 4:11 PM EDT Generic External Data Provider LAB BLOOD ORDERAB LES Final Result Performing Organization Address City/[facility]/ZIP Co de Phone Number [facility] [address] [place] [phone] * (ABNORMAL) POCT Hemoglobin (02/21/2025 11:40 AM EDT) Hemoglobin 7.8(A) 12.0 - 15.0 QC Media Lot # [id number] Lot# Expiration Date Blood 02/21/2025 11:4 0 AM EDT Lupe Moralez TECHNICAL OPERATIONS VICE PRESIDENT POINT OF CARE TEST ENTER/EDIT ORDERABLES Final Result * Albumin, Random Urine W/Creatinine (06/14/2024 12:58 PM EST) Creatinine, Urine 54.88 mg/dL [facility] Microalbumin Urine <5.0 mg/L [facility] Microalbum Creatinine Ratio Ur TNP <30 ug/mg cr [facility] Comment:Unable to calculate albumin/creatinine ratio due to lowmicroalbumin or creatinine result. Urine 06/14/2024 12:5 8 PM EST 06/14/2024 2:08 PM EST Lupe Moralez TECHNICAL OPERATIONS VICE PRESIDENT LAB URINE ORDERABLES Final Res ult Performing Organization Address [facility]/ZIP Co de Phone Number [facility] [address] [place] [phone] * (ABNORMAL) Lipid Panel, Standard (06/14/2024 12:51 PM EST) Triglycerides 167(H) <150 mg/dL [facility] Comment:Desirable Triglyceri de: less than 150 mg/dLBorderline High Triglyceride 150-199 mg/dLHigh Triglyceride: 200-499 mg/dLVery High Triglyceride: greater than or equal to 5OO mg/dL Cholesterol 112 <200 mg/dL [facility] Comment:Desirable Cholestero l: less than 200 mg/dLBorderline High Cholesterol: 200-239 mg/dLHigh Cholesterol: greater than 239 mg/dL LDL Cholesterol Calculated 41 <100 mg/dL [facility] Comment:Desirable LDL: less than 100 mg/dLNear Optimal/Above Optimal LDL: 110- 129 mg/dLBorderline High LDL: 130-159 mg/dLHigh LDL: 160-189 mg/dLVery High LDL: greater than or equal to 190 mg/dL HDL Cholesterol 38(L) >40 mg/dL [facility] Comment:Desirable HDL: great er than 40 mg/dL Note: This HDL assay may give artificially low results in patients with liver disease. Blood Venous blood specimen / Unknown 06/14/2024 12:51 PM EST 06/14/2024 2:03 PM EST us Lupe Moralez TECHNICAL OPERATIONS VICE PRESIDENT LAB BLOOD ORDERABLES Final Res ult [facility] [address] [place] [phone] from Last 3 Months or Most Recently Relevant to Health Maintenance Insurance [facility] [employer] (HMO D-SNP) BARRY GARCIA [id number] [employer] C/O [employer] [facility] [employer] Care Teams Welt Edge Rounder Relationship Specialty Start Date End Date Lupe Moralez FNP [address] [place] [address] PCP - General Family Medicine 04/16/22 Perry Quintero MD [address] [place] [phone] Cardiology 06/14/24
--- OUTSIDE RECORDS SUMMARY | 2025-05-17 12:28 | XMS_ITS | Encounter Summary ---
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 documented in this encounter Plan of Treatment Upcoming Encounters Date Type Department Care Team (Late st Contact Info) Description 08/03/2025 11:30 AM EST Office Visit [facility] [address] [place] [address] Lupe Moralez, BE [address] [place] [address] documented as of this encounter Procedures Procedure [...] 4:03 PM EDT 06/03/2023 6:38 PM EDT Comment:[facility] Narrative [facility] - 06/05/2023 12:49 PM EDT Urine Culture Report Result Urine Culture < 10,000 cfu/ml Specimen Source: Urine clean catch Yg Reyes MD LAB MICROBIOLOGY - GENERAL ORDER CASIMIRO Final Result [facility] [address] [place] [phone] * Lactic Acid (03/15/2023 6:29 PM EDT) Lactic Acid 1.2 0.5 - 2.0 mmol/L [facility] 03/15/2023 6:29 PM EDT 03/15/2023 6:32 PM EDT [facility] External Provider LAB BLO OD ORDERABLES Final Result [facility] [address] [place] [address] [phone] * Lipase (03/15/2023 3:34 PM EDT) Lipase 22 8 - 78 U/L [facility] 03/15/2023 3:34 PM EDT 03/15/2023 3:41 PM EDT us Generic External Data Provider LAB BLOOD ORDERAB LES Final Result [facility] [address] [place] [phone] * (ABNORMAL) Comprehensive Metabolic Panel (03/15/2023 3:34 PM EDT) Sodium 137 135 - 145 mmol/L [facility] Potassium 4.7 3.3 - 5.1 mmol/L [facility] Chloride 102 96 - 108 mmol/L [facility] Carbon Dioxide 23 22 - 29 mmol/L [facility] Anion Gap 17 12 - 20 [facility] Urea Nitrogen (BUN) 32(H) 9 - 16 mg/dL [facility] Creatinine, Serum 1.83(H) 0.5 - 1.4 mg/dL [facility] Creatinine Clr Calc Pharmacy 27.9 [facility] Comment:Provided height and weight: 162.56 cm,92.533 kg.eGFR (calculated from the MDRD study equation) and eCrCl(calculated from the Cockcroft-Gault equation) are based ondifferent parameters and may not yield comparable results.If eCrCl result is absurd, please check patient'sheight/weight. Estimated Glomerular Filt Rate 27 [facility] Comment:NOTE: For -Am erican individuals, multiply the result by 1.210.Chronic Kidney Disease: Estimated GFR < 60 mL/min/1.52x2Wwapqp Kidney Disease: Estimated GFR < 15 mL/min/1.73m2 Glucose 254(H) 60 - 115 mg/dL [facility] Calcium 9.8 8.4 - 10.2 mg/dL [facility] Bilirubin, Total 0.4 0.0 - 1.0 mg/dL [facility] Aspartate Amino Transferase 17 5 - 31 U/L [facility] Alanine Aminotransferase 12 0 - 31 U/L [facility] Total Protein 7.5 6.5 - 8.0 g/dL [facility] Albumin Level 4.3 3.5 - 5.0 g/dL [facility] Alkaline Phosphatase 72 39 - 117 U/L [facility] 03/15/2023 3:34 PM EDT 03/15/2023 3:41 PM EDT [facility] External Provider LAB BLO OD ORDERABLES Final Result Performing Organization Address City/[facility] Co de Phone Number [facility] [address] [place] [phone] * (ABNORMAL) Lactic Acid (03/15/2023 3:34 PM EDT) Lactic Acid 2.6(HH) 0.5 - 2.0 mmol/L [facility] Comment:Critical value for t est(s):LACTA Results called to anny back by:TAE Person calling:EDWARD Date:03/15/23Time:1610 03/15/2023 3:34 PM EDT 03/15/2023 3:41 PM EDT [facility] External Provider LAB BLO OD ORDERABLES Final Result Performing Organization Address [facility] Co de Phone Number [facility] [address] [place] [phone] * (ABNORMAL) Urinalysis, Complete, with Reflex to Culture (03/15/2023 3:34 PM EDT) Color Urine Yellow [facility] Appearance Urine Clear [facility] PH 7.0 5.0 - 9.0 [facility] Glucose Urine UA >=1000(A) Negative mg/dL [facility] Urine Blood Large (3+)(A) Negative [facility] Specific [place] - Urine 1.020 1.005 - 1.025 [facility] Urine Protein Negative Neg-Trace mg/dL [facility] Urine Ketones Negative Negative mg/dL [facility] Nitrite Urine Negative Negative [facility] Leukocyte Esterase Urine Negative Negative [facility] RBC Urine >20(A) 0 - 2 /HPF [facility] Urine WBC 0-5 0 - 5 /HPF [facility] Urine Squamous Epithelial Cell 0-2 0 - 2 /HPF [facility] Urine Bacteria None Seen None Seen [facility] Hyaline Casts, Urine 0-2 0 - 2 /LPF [facility] 03/15/2023 3:34 PM EDT 03/15/2023 3:41 PM EDT Narrative [facility] - 03/15/2023 4:19 PM EDT [id number], Clean Catch us [facility] External Provider LAB URI NE ORDERABLES Final Result [facility] [address] [place] [address] [phone] * (ABNORMAL) CBC auto differential (03/15/2023 3:34 PM EDT) White Blood Count 7.2 4.8 - 10.8 X10*3/uL [facility] Red Blood Count 3.64(L) 4.20 - 5.50 X10*6/uL [facility] Hemoglobin 11.7(L) 12.0 - 16.0 g/dl [facility] Hematocrit 35.1(L) 37.0 - 47.0 % [facility] Mean Corpuscular Volume 96.4 80.0 - 98.0 fL [facility] Mean Corpuscular Hemoglobin 32.1 27.0 - 33.0 pg [facility] Mean Corpuscular HGB Conc 33.3 31.0 - 35.0 g/dl [facility] Red Cell Distribution Width 11.9 11.0 - 16.0 % [facility] Platelet Count 246 160 - 400 X10*3/uL [facility] Mean Platelet Volume 10.3 9.4 - 12.3 fL [facility] Neutrophils Percent Auto 66.7 45 - 73 % [facility] Imm Gran Pct Auto 0.4 0.0 - 0.4 % [facility] Lymphocytes Percent Auto 22.0 20 - 40 % [facility] Monocytes Percent Auto 6.4 2 - 11 % [facility] Eosinophils Percent Auto 4.1(H) 0 - 4 % [facility] Basophils Percent Auto 0.4 0 - 2 % [facility] NRBC Pct Auto 0.0 0.0 - 0.2 /100WBC [facility] Neutrophils Absolute Auto 4.8 2.0 - 8.3 x10*3/uL [facility] Imm Gran Abs Auto 0.03 0.00 - 0.03 X10*3/uL [facility] Lymphocytes Absolute Auto 1.6 1.2 - 4.9 X10*3/uL [facility] Monocytes Absolute Auto 0.5 0.1 - 1.2 X10*3/uL [facility] Eosinophils Absolute Auto 0.3 0.0 - 0.4 X10*3/uL [facility] Basophils Absolute Auto 0.0 0.0 - 0.2 X10*3/uL [facility] NRBC Abs Auto 0.000 0.0 - 0.012 X10*3/uL [facility] 03/15/2023 3:34 PM EDT 03/15/2023 3:41 PM EDT us [facility] External Provider LAB BLO OD ORDERABLES Final Result [facility] [address] [place] [phone] * Culture, Urine, Routine (03/11/2023 4:02 PM EDT) Urine specimen obtained by clean catch procedure / Unknown 03/11/2023 4:02 PM EDT 03/11/2023 6:59 PM EDT Comment:[facility] Narrative [facility] - 03/13/2023 8:43 AM EDT Escherichia coli Quant 50,000 to 100,000 cfu/mL Escherichia coli: Ampicillin 8(S) Escherichia coli: Ceftriaxone <=0.25(S) Escherichia coli: Gentamicin <=1(S) Escherichia coli: Levofloxacin >=8(R) Escherichia coli: Nitrofurantoin <=16(S) Escherichia coli: Trimethoprim/Sulfamethoxazole <=20(S) Specimen Source: Urine clean catch [facility] MICROBIOLOGY - GENERAL ORDER CASIMIRO Final Result Performing Organization Address [facility] de Phone Number [facility] [address] [place] [address] [phone] * Calcium (02/10/2023 11:24 AM EDT) Calcium 9.8 8.4 - 10.2 mg/dL [facility] 02/10/2023 11:2 4 AM EDT 02/10/2023 11:24 AM EDT [facility] External Provider LAB BLO OD ORDERABLES Final Result Performing Organization Address [facility] de Phone Number [facility] [address] [place] [address] [phone] * Creatinine, Serum (02/10/2023 11:24 AM EDT) Creatinine, Serum 1.13 0.5 - 1.4 mg/dL [facility] Estimated Glomerular Filt Rate 47 [facility] Comment:NOTE: For -Am erican individuals, multiply the result by 1.210.Chronic Kidney Disease: Estimated GFR < 60 mL/min/1.05m2Gvlbpo Kidney Disease: Estimated GFR < 15 mL/min/1.73m2 02/10/2023 11:2 4 AM EDT 02/10/2023 11:24 AM EDT [facility] External Provider LAB BLO OD ORDERABLES Final Result Performing Organization Address [facility] Co de Phone Number [facility] [address] [place] [address] [phone] * (ABNORMAL) BUN (Blood Urea Nitrogen) (02/10/2023 11:24 AM EDT) Urea Nitrogen (BUN) 24(H) 9 - 16 mg/dL [facility] 02/10/2023 11:2 4 AM EDT 02/10/2023 11:24 AM EDT [facility] External Provider LAB BLO OD ORDERABLES Final Result Performing Organization Address [facility] Co de Phone Number [facility] [address] [place] [address] [phone] * Electrolyte Panel (02/10/2023 11:24 AM EDT) Sodium 141 135 - 145 mmol/L [facility] Potassium 4.0 3.3 - 5.1 mmol/L [facility] Chloride 105 96 - 108 mmol/L [facility] Carbon Dioxide 25 22 - 29 mmol/L [facility] Anion Gap 15 12 - 20 [facility] 02/10/2023 11:2 4 AM EDT 02/10/2023 11:24 AM EDT [facility] External Provider LAB BLO OD ORDERABLES Final Result Performing Organization Address [facility] Co de Phone Number [facility] [address] [place] [phone] * (ABNORMAL) Urinalysis, Complete, with Reflex to Culture (02/02/2023 3:16 AM EDT) Color Urine Yellow [facility] Appearance Urine Clear [facility] PH 5.5 5.0 - 9.0 [facility] Glucose Urine UA >=1000(A) Negative mg/dL [facility] Urine Blood Negative Negative [facility] Specific [place] - Urine 1.025 1.005 - 1.025 [facility] Urine Protein Negative Neg-Trace mg/dL [facility] Urine Ketones Negative Negative mg/dL [facility] Nitrite Urine Negative Negative [facility] Leukocyte Esterase Urine Negative Negative [facility] RBC Urine 3-5(A) 0 - 2 /HPF [facility] Urine WBC 0-5 0 - 5 /HPF [facility] Urine Squamous Epithelial Cell 0-2 0 - 2 /HPF [facility] Urine Bacteria None Seen None Seen [facility] Hyaline Casts, Urine 0-2 0 - 2 /LPF [facility] 02/02/2023 3:16 AM EDT 02/02/2023 3:18 AM EDT Narrative [facility] - 02/02/2023 3:28 AM EDT [id number], Clean Catch [facility] External Provider LAB URI NE ORDERABLES Final Result Performing Organization Address [facility] Co de Phone Number [facility] [address] [place] [address] [phone] * Sed Rate by Modified eHavenly (02/02/2023 2:37 AM EDT) Erythrocyte Sedimentation Rate 7 0 - 20 MM/HR [facility] Comment:Patients with polycy themia and many hemoglobin abnormalitiesmay have depressed sed rates whereas patients with anemiamay have elevated sed rates. 02/02/2023 2:37 AM EDT 02/02/2023 2:43 AM EDT [facility] External Provider LAB BLO OD ORDERABLES Final Result Performing Organization Address [facility] Co de Phone Number [facility] [address] [place] [address] [phone] * TSH W/Reflex to FT4 (02/02/2023 2:37 AM EDT) TSH reflex Free T4 2.61 0.32 - 4.0 uIU/mL [facility] 02/02/2023 2:37 AM EDT 02/02/2023 2:43 AM EDT [facility] External Provider LAB BLO OD ORDERABLES Final Result Performing Organization Address City/[facility]/ZIP Co de Phone Number [facility] [address] [place] [phone] * B Type Natriuretic Peptide (BNP) (02/02/2023 2:37 AM EDT) Pathologist [facility] B Type Natriuretic Peptide 72 <100 pg/mL [facility] Comment:For those patients w ho are being treated with Natrecor(nesiritide, recombinant BNP), BNP testing should beperformed at least two hours post treatment in order toensure that only endogenous levels of BNP are detected. 02/02/2023 2:37 AM EDT 02/02/2023 2:43 AM EDT [facility] External Provider LAB BLO OD ORDERABLES Final Result Performing Organization Address [facility] Co de Phone Number [facility] [address] [place] [phone] * High Sensitivity Troponin I (02/02/2023 2:37 AM EDT) Pathologist [facility] TROPONIN I HIGH SENSITIVITY 3.7 <3.5 - 17.0 ng/L [facility] Comment:The Tony high sens itivity Troponin-I results should beused in conjunction with other diagnostic information suchas ECG, clinical observations and information, and patientsymptoms to aid in the diagnosis of [place]. 02/02/2023 2:37 AM EDT 02/02/2023 2:43 AM EDT [facility] External Provider LAB BLO OD ORDERABLES Final Result Performing Organization Address [facility]/ZIP Co de Phone Number [facility] [address] [place] [phone] * (ABNORMAL) Basic Metabolic Panel (02/02/2023 2:37 AM EDT) Sodium 139 135 - 145 mmol/L [facility] Comment:Lipemic Specimen Potassium 4.3 3.3 - 5.1 mmol/L [facility] Comment:Lipemic Specimen Chloride 100 96 - 108 mmol/L [facility] Comment:Lipemic Specimen Carbon Dioxide 25 22 - 29 mmol/L [facility] Anion Gap 18 12 - 20 [facility] Urea Nitrogen (BUN) 38(H) 9 - 16 mg/dL [facility] Comment:Lipemic Specimen Creatinine, Serum 1.58(H) 0.5 - 1.4 mg/dL [facility] Comment:Lipemic Specimen Creatinine Clr Calc Pharmacy 32.4 [facility] Comment:Provided height and weight: 162.56 cm,92.986 kg.eGFR (calculated from the MDRD study equation) and eCrCl(calculated from the Cockcroft-Gault equation) are based ondifferent parameters and may not yield comparable results.If eCrCl result is absurd, please check patient'sheight/weight. Estimated Glomerular Filt Rate 32 [facility] Comment:NOTE: For -Am erican individuals, multiply the result by 1.210.Chronic Kidney Disease: Estimated GFR < 60 mL/min/1.51e5Amfiza Kidney Disease: Estimated GFR < 15 mL/min/1.73m2 Glucose 230(H) 60 - 115 mg/dL [facility] Comment:Lipemic Specimen Calcium 10.5(H) 8.4 - 10.2 mg/dL [facility] Comment:Lipemic Specimen 02/02/2023 2:37 AM EDT 02/02/2023 2:43 AM EDT us [facility] External Provider LAB BLO OD ORDERABLES Final Result [facility] [address] [place] [phone] * (ABNORMAL) CBC auto differential (02/02/2023 2:37 AM EDT) White Blood Count 9.2 4.8 - 10.8 X10*3/uL [facility] Red Blood Count 3.86(L) 4.20 - 5.50 X10*6/uL [facility] Hemoglobin 12.9 12.0 - 16.0 g/dl [facility] Hematocrit 37.5 37.0 - 47.0 % [facility] Mean Corpuscular Volume 97.2 80.0 - 98.0 fL [facility] Mean Corpuscular Hemoglobin 33.4(H) 27.0 - 33.0 pg [facility] Mean Corpuscular HGB Conc 34.4 31.0 - 35.0 g/dl [facility] Red Cell Distribution Width 12.6 11.0 - 16.0 % [facility] Platelet Count 281 160 - 400 X10*3/uL [facility] Mean Platelet Volume 10.2 9.4 - 12.3 fL [facility] Neutrophils Percent Auto 58.2 45 - 73 % [facility] Imm Gran Pct Auto 1.0(H) 0.0 - 0.4 % [facility] Lymphocytes Percent Auto 32.1 20 - 40 % [facility] Monocytes Percent Auto 6.3 2 - 11 % [facility] Eosinophils Percent Auto 2.1 0 - 4 % [facility] Basophils Percent Auto 0.3 0 - 2 % [facility] NRBC Pct Auto 0.0 0.0 - 0.2 /100WBC [facility] Neutrophils Absolute Auto 5.4 2.0 - 8.3 x10*3/uL [facility] Imm Gran Abs Auto 0.09(H) 0.00 - 0.03 X10*3/uL [facility] Lymphocytes Absolute Auto 3.0 1.2 - 4.9 X10*3/uL [facility] Monocytes Absolute Auto 0.6 0.1 - 1.2 X10*3/uL [facility] Eosinophils Absolute Auto 0.2 0.0 - 0.4 X10*3/uL [facility] Basophils Absolute Auto 0.0 0.0 - 0.2 X10*3/uL [facility] NRBC Abs Auto 0.000 0.0 - 0.012 X10*3/uL [facility] 02/02/2023 2:37 AM EDT 02/02/2023 2:43 AM EDT [facility] External Provider LAB BLO OD ORDERABLES Final Result Performing Organization Address [facility] de Phone Number [facility] [address] [place] [phone] * (ABNORMAL) B Type Natriuretic Peptide (BNP) (01/23/2023 5:48 PM EDT) [facility] B Type Natriuretic Peptide 119(H) <100 pg/mL [facility] Comment:For those patients w ho are being treated with Natrecor(nesiritide, recombinant BNP), BNP testing should beperformed at least two hours post treatment in order toensure that only endogenous levels of BNP are detected. 01/23/2023 5:48 PM EDT 01/23/2023 9:15 PM EDT [facility] External Provider LAB BLO OD ORDERABLES Final Result Performing Organization Address [facility] de Phone Number [facility] [address] [place] [phone] * (ABNORMAL) Basic Metabolic Panel (01/23/2023 5:48 PM EDT) [facility] Sodium 138 135 - 145 mmol/L [facility] Potassium 4.2 3.3 - 5.1 mmol/L [facility] Chloride 105 96 - 108 mmol/L [facility] Carbon Dioxide 23 22 - 29 mmol/L [facility] Anion Gap 14 12 - 20 [facility] Urea Nitrogen (BUN) 22(H) 9 - 16 mg/dL [facility] Creatinine, Serum 0.99 0.5 - 1.4 mg/dL [facility] Creatinine Clr Calc Pharmacy 50.3 [facility] Comment:Provided height and weight: 160.02 cm,91.626 kg.eGFR (calculated from the MDRD study equation) and eCrCl(calculated from the Cockcroft-Gault equation) are based ondifferent parameters and may not yield comparable results.If eCrCl result is absurd, please check patient'sheight/weight. Estimated Glomerular Filt Rate 54 [facility] Comment:NOTE: For -[place] er[place] individuals, multiply the result by 1.210.Chronic Kidney Disease: Estimated GFR < 60 mL/min/1.97v4Vsuqsy Kidney Disease: Estimated GFR < 15 mL/min/1.73m2 Glucose 119(H) 60 - 115 mg/dL [facility] Calcium 10.2 8.4 - 10.2 mg/dL [facility] 01/23/2023 5:48 PM EDT 01/23/2023 6:01 PM EDT us [facility] External Provider LAB BLO OD ORDERABLES Final Result [facility] [address] [place] [phone] Hepatic Function Panel (01/23/2023 5:48 PM EDT) Bilirubin, Total 0.6 0.0 - 1.0 mg/dL [facility] Bilirubin, Direct 0.2 0.0 - 0.5 mg/dL [facility] Aspartate Amino Transferase 12 5 - 31 U/L [facility] Alanine Aminotransferase 8 0 - 31 U/L [facility] Total Protein 7.2 6.5 - 8.0 g/dL [facility] Albumin Level 4.1 3.5 - 5.0 g/dL [facility] Alkaline Phosphatase 72 39 - 117 U/L [facility] 01/23/2023 5:48 PM EDT 01/23/2023 6:01 PM EDT [facility] External Provider LAB BLO OD ORDERABLES Final Result Performing Organization Address [facility] Phone Number [facility] [address] [place] [phone] * High Sensitivity Troponin I (01/23/2023 5:48 PM EDT) TROPONIN I HIGH SENSITIVITY <2.7 <3.5 - 17.0 ng/L [facility] Comment:The Tony high sens itivity Troponin-I results should beused in conjunction with other diagnostic information suchas ECG, clinical observations and information, and patientsymptoms to aid in the diagnosis of [place]. 01/23/2023 5:48 PM EDT 01/23/2023 6:01 PM EDT [facility] External Provider LAB BLO OD ORDERABLES Final Result Performing Organization Address [facility] Number [facility] [address] [place] [address] [phone] * (ABNORMAL) APTT (01/23/2023 5:48 PM EDT) Pathologist [facility] Partial Thromboplastin Time 24.9(L) 26.0 - 36.4 SEC [facility] 01/23/2023 5:48 PM EDT 01/23/2023 6:01 PM EDT [facility] External Provider LAB BLO OD ORDERABLES Final Result Performing Organization Address [facility] de Phone Number [facility] [address] [place] [phone] * Prothrombin Time-INR (01/23/2023 5:48 PM EDT) Prothrombin Time 10.0 10.0 - 13.1 SEC [facility] INTERNATIONAL NORM RATIO 0.9 0.9 - 1.1 [facility] Comment:INTERNATIONAL NORMAL IZED RATIO (INR) REFERENCE [...] PM EDT 01/23/2023 6:01 PM EDT us [facility] External Provider LAB BLO OD ORDERABLES Final Result Performing Organization Address City/State/[facility] Co de Phone Number [facility] [address] [place] [address] [phone] * (ABNORMAL) CBC auto differential (01/23/2023 5:48 PM EDT) White Blood Count 7.5 4.8 - 10.8 X10*3/uL [facility] Red Blood Count 3.42(L) 4.20 - 5.50 X10*6/uL [facility] Hemoglobin 11.2(L) 12.0 - 16.0 g/dl [facility] Hematocrit 33.6(L) 37.0 - 47.0 % [facility] Mean Corpuscular Volume 98.2(H) 80.0 - 98.0 fL [facility] Mean Corpuscular Hemoglobin 32.7 27.0 - 33.0 pg [facility] Mean Corpuscular HGB Conc 33.3 31.0 - 35.0 g/dl [facility] Red Cell Distribution Width 12.5 11.0 - 16.0 % [facility] Platelet Count 238 160 - 400 X10*3/uL [facility] Mean Platelet Volume 10.3 9.4 - 12.3 fL [facility] Neutrophils Percent Auto 56.7 45 - 73 % [facility] Imm Gran Pct Auto 0.4 0.0 - 0.4 % [facility] Lymphocytes Percent Auto 26.0 20 - 40 % [facility] Monocytes Percent Auto 9.9 2 - 11 % [facility] Eosinophils Percent Auto 6.3(H) 0 - 4 % [facility] Basophils Percent Auto 0.7 0 - 2 % [facility] NRBC Pct Auto 0.0 0.0 - 0.2 /100WBC [facility] Neutrophils Absolute Auto 4.2 2.0 - 8.3 x10*3/uL [facility] Imm Gran Abs Auto 0.03 0.00 - 0.03 X10*3/uL [facility] Lymphocytes Absolute Auto 1.9 1.2 - 4.9 X10*3/uL [facility] Monocytes Absolute Auto 0.7 0.1 - 1.2 X10*3/uL [facility] Eosinophils Absolute Auto 0.5(H) 0.0 - 0.4 X10*3/uL [facility] Basophils Absolute Auto 0.1 0.0 - 0.2 X10*3/uL [facility] NRBC Abs Auto 0.000 0.0 - 0.012 X10*3/uL [facility] 01/23/2023 5:48 PM EDT 01/23/2023 6:01 PM EDT us [facility] External Provider LAB BLO OD ORDERABLES Final Result [facility] [address] [place] [address] [phone] * B Type Natriuretic Peptide (BNP) (12/18/2022 10:20 AM EDT) B Type Natriuretic Peptide 95 <100 pg/mL [facility] Comment:For those patients w ho are being treated with Natrecor(nesiritide, recombinant BNP), BNP testing should beperformed at least two hours post treatment in order toensure that only endogenous levels of BNP are detected. 12/18/2022 10:2 0 AM EDT 12/18/2022 10:20 AM EDT [facility] External Provider LAB BLO OD ORDERABLES Final Result Performing Organization Address [facility] de Phone Number [facility] [address] [place] [phone] * (ABNORMAL) APTT (12/18/2022 10:20 AM EDT) Pathologist [facility] Partial Thromboplastin Time 24.7(L) 26.0 - 36.4 SEC [facility] 12/18/2022 10:2 0 AM EDT 12/18/2022 10:20 AM EDT [facility] External Provider LAB BLO OD ORDERABLES Final Result Performing Organization Address [facility] Phone Number [facility] [address] [place] [phone] * (ABNORMAL) CBC auto differential (12/18/2022 10:20 AM EDT) [facility] White Blood Count 9.0 4.8 - 10.8 X10*3/uL [facility] Red Blood Count 3.63(L) 4.20 - 5.50 X10*6/uL [facility] Hemoglobin 11.8(L) 12.0 - 16.0 g/dl [facility] Hematocrit 35.4(L) 37.0 - 47.0 % [facility] Mean Corpuscular Volume 97.5 80.0 - 98.0 fL [facility] Mean Corpuscular Hemoglobin 32.5 27.0 - 33.0 pg [facility] Mean Corpuscular HGB Conc 33.3 31.0 - 35.0 g/dl [facility] Red Cell Distribution Width 12.4 11.0 - 16.0 % [facility] Platelet Count 221 160 - 400 X10*3/uL [facility] Mean Platelet Volume 10.6 9.4 - 12.3 fL [facility] Neutrophils Percent Auto 73.6(H) 45 - 73 % [facility] Imm Gran Pct Auto 0.2 0.0 - 0.4 % [facility] Lymphocytes Percent Auto 17.1(L) 20 - 40 % [facility] Monocytes Percent Auto 6.4 2 - 11 % [facility] Eosinophils Percent Auto 2.1 0 - 4 % [facility] Basophils Percent Auto 0.6 0 - 2 % [facility] NRBC Pct Auto 0.0 0.0 - 0.2 /100WBC [facility] Neutrophils Absolute Auto 6.7 2.0 - 8.3 x10*3/uL [facility] Imm Gran Abs Auto 0.02 0.00 - 0.03 X10*3/uL [facility] Lymphocytes Absolute Auto 1.6 1.2 - 4.9 X10*3/uL [facility] Monocytes Absolute Auto 0.6 0.1 - 1.2 X10*3/uL [facility] Eosinophils Absolute Auto 0.2 0.0 - 0.4 X10*3/uL [facility] Basophils Absolute Auto 0.1 0.0 - 0.2 X10*3/uL [facility] NRBC Abs Auto 0.000 0.0 - 0.012 X10*3/uL [facility] 12/18/2022 10:2 0 AM EDT 12/18/2022 10:20 AM EDT us [facility] External Provider LAB BLO OD ORDERABLES Final Result [facility] [address] [place] [phone] * B Type Natriuretic Peptide (BNP) (11/01/2022 9:29 AM EDT) B Type Natriuretic Peptide 97 <100 pg/mL [facility] Comment:For those patients w ho are being treated with Natrecor(nesiritide, recombinant BNP), BNP testing should beperformed at least two hours post treatment in order toensure that only endogenous levels of BNP are detected. 11/01/2022 9:29 AM EDT 11/01/2022 9:29 AM EDT [facility] External Provider LAB BLO OD ORDERABLES Final Result Performing Organization Address [facility] Co de Phone Number [facility] [address] [place] [phone] * Lipid Panel, Standard (11/01/2022 9:29 AM EDT) Triglycerides 101 mg/dL [facility] Comment:Desirable Triglyceri de: less than 150 mg/dLBorderline High Triglyceride 150-199 mg/dLHigh Triglyceride: 200-499 mg/dLVery High Triglyceride: greater than or equal to 5OO mg/dL Cholesterol 128 mg/dL [facility] Comment:Desirable Cholestero l: less than 200 mg/dLBorderline High Cholesterol: 200-239 mg/dLHigh Cholesterol: greater than 239 mg/dL LDL Cholesterol Calculated 68 mg/dl [facility] Comment:Desirable LDL: less than 100 mg/dLNear Optimal/Above Optimal LDL: 110- 129 mg/dLBorderline High LDL: 130-159 mg/dLHigh LDL: 160-189 mg/dLVery High LDL: greater than or equal to 190 mg/dL HDL Cholesterol 40 mg/dL [facility] Comment:Desirable HDL: great er than 40 mg/dL Note: This HDL assay may give artificially low results in patients with liver disease. 11/01/2022 9:29 AM EDT 11/01/2022 9:29 AM EDT [facility] External Provider LAB BLO OD ORDERABLES Final Result Performing Organization Address [facility] Co de Phone Number [facility] [address] [place] [phone] * ALT (11/01/2022 9:29 AM EDT) Alanine Aminotransferase 9 0 - 31 U/L [facility] 11/01/2022 9:29 AM EDT 11/01/2022 9:29 AM EDT [facility] External Provider LAB BLO OD ORDERABLES Final Result Performing Organization Address [facility] Co de Phone Number [facility] [address] [place] [phone] * AST (11/01/2022 9:29 AM EDT) Aspartate Amino Transferase 12 5 - 31 U/L [facility] 11/01/2022 9:29 AM EDT 11/01/2022 9:29 AM EDT [facility] External Provider LAB BLO OD ORDERABLES Final Result Performing Organization Address [facility] Phone Number [facility] [address] [place] [address] [phone] * (ABNORMAL) Basic Metabolic Panel (11/01/2022 9:29 AM EDT) Sodium 142 135 - 145 mmol/L [facility] Potassium 4.5 3.3 - 5.1 mmol/L [facility] Chloride 105 96 - 108 mmol/L [facility] Carbon Dioxide 30(H) 22 - 29 mmol/L [facility] Anion Gap 12 12 - 20 [facility] Urea Nitrogen (BUN) 30(H) 9 - 16 mg/dL [facility] Creatinine, Serum 1.18 0.5 - 1.4 mg/dL [facility] Estimated Glomerular Filt Rate 44 [facility] Comment:NOTE: For -Am erican individuals, multiply the result by 1.210.Chronic Kidney Disease: Estimated GFR < 60 mL/min/1.66w0Yvausd Kidney Disease: Estimated GFR < 15 mL/min/1.73m2 Glucose 105 60 - 115 mg/dL [facility] Calcium 9.7 8.4 - 10.2 mg/dL [facility] 11/01/2022 9:29 AM EDT 11/01/2022 9:29 AM EDT [facility] External Provider LAB BLO OD ORDERABLES Final Result [facility] [address] [place] [phone] documented in this encounter Visit Diagnoses Not on filedocumented in this encounter Care Teams Flying Shear Operator Relationship Specialty Start Date End Date Lupe Moralez FNP [address] [place] [address] PCP - General Family Medicine 04/16/22 Perry Quintero MD [address] [place] [address] Cardiology 06/14/24 documented as of this encounter
--- OUTSIDE RECORDS SUMMARY | 2025-05-17 12:28 | XMS_ITS | Encounter Summary ---
Author Organization [employer] Address [address] [facility] 7t [place] [address] Care Team Providers Care Packing Shed Supervisor Name Role Phone Lupe Moralez Primary Care Provider [phone] Perry Quintero MD Unavailable [phone] Reason for Visit * Reason Comments Med Refill Encounter Details Date Type Department Care Team ([facility] st Contact Info) Description 05/31/2024 Refill [facility] [address] [place] [address] Lupe Moralez FNP [address] [place], [place] [phone] Gastroesophageal reflux disease, unspecified whether esophagitis present [...] 08/03/2025 11:30 AM EST Office Visit [facility] [address] [place] [address] Lupe Moralez FNP [address] [place] [address] documented as of this encounter Visit Diagnoses Diagnosis Gastroesophageal reflux disease, unspecified whether esophagitis present documented in this encounter Additional Health Concerns Assessment Noted Time PHQ-9 Depression Total Score: 4 02/09/20 24 10:42 AM EDT documented as of this encounter Care Teams Packing Shed Supervisor Relationship Specialty Start Date End Date Lupe Moralez FNP [address] [place] [address] PCP - General Family Medicine 04/16/22 Perry Quintero MD [address] [place] [address] Cardiology 06/14/24 documented as of this encounter
--- OUTSIDE RECORDS SUMMARY | 2025-05-17 12:28 | XMS_ITS | Encounter Summary ---
Author Organization [employer] Address [address] [place] [address] 7t [place] [address] Care Team Providers Care Bessemer Bottom Maker Name Role Phone Lupe Moralez Primary Care Provider [phone] Perry Quintero MD Unavailable [phone] Encounter Details Date Type Department Care Team (Late st Contact Info) Description 03/18/2023 Abstract [facility] [address] [place] [phone] Lupe Moralez FNP [address] [place] [address] Social History Tobacco Use Types Packs/Day Years [...] Visit [facility] [address] [place] [address] Lupe Moralez FNP [address] [place], [place] [phone] documented as of this encounter Visit Diagnoses Not on filedocumented in this encounter Additional Health Concerns Assessment Noted Time PHQ-9 Depression Total Score: 5 01/03/20 23 2:27 PM EDT documented as of this encounter Care Teams Bessemer Bottom Maker Relationship Specialty Start Date End Date Lupe Moralez FNP [address] [place] [address] PCP - General Family Medicine 04/16/22 Perry Quintero MD [address] [place] [address] Cardiology 06/14/24 documented as of this encounter
--- OUTSIDE RECORDS SUMMARY | 2025-05-17 12:28 | XMS_ITS | Encounter Summary ---
Author Organization [employer] Address [address] [facility] 7t [place] [address] Care Team Providers Care Podiatric Aide Name Role Phone Lupe Moralez Primary Care Provider [phone] Perry Quintero MD Unavailable [phone] Reason for Visit * Reason Onset Date Comments FYI 12/15/2023 Encounter Details Date Type Department Care Team ([facility] st Contact Info) Description 12/15/2023 Telephone [facility] MED & PEDS [address] [place] [address] Lupe Moralez FNP [address] [place] [address] FYI Social History Tobacco Use Types Packs/Day [...] - 12/15/2023 2:27 PM EDT Tc from [facility] with [facility] calling to advise provider pt has been discharged from nursing services with all nursing goals met. documented in this encounter Plan of Treatment Upcoming Encounters Date Type Department Care Team (Late st Contact Info) Description 08/03/2025 11:30 AM EST Office Visit [facility] MEDICINE [address] [place] [address] Lupe Moralez FNP [address] [place] [address] documented as of this encounter Visit Diagnoses Not on filedocumented in this encounter Additional Health Concerns Assessment Noted Time PHQ-9 Depression Total Score: 5 01/03/20 23 2:27 PM EDT documented as of this encounter Care Teams Podiatric Aide Relationship Specialty Start Date End Date Lupe Moralez FNP [address] [place] [address] PCP - General Family Medicine 04/16/22 Perry Quintero MD [address] [place] [address] Cardiology 06/14/24 documented as of this encounter
--- OUTSIDE RECORDS SUMMARY | 2025-05-17 12:29 | XMS_ITS | Encounter Summary ---
Author Organization [employer] Address [address] [facility] 7t [place] [address] Care Team Providers Care Maintainer Central Office Name Role Phone Lupe Moralez Primary Care Provider [phone] Perry Quintero MD Unavailable [phone] Reason for Visit * Reason Comments Med Refill Encounter Details Date Type Department Care Team ([facility] st Contact Info) Description 04/14/2025 Refill [facility] MED & PEDS [address] [place], [place] [phone] Lupe Moralez FNP [address] [place] [address] Neuropathy Social History Tobacco Use Types Packs/Day Years [...] your housing situation today? I have pranav sing 10/06/[address] you li [...] 11:30 AM EST Office Visit [facility] MEDICINE [address] [place] [address] Lupe Moralez FNP [address] [place] [address] documented as of this encounter Visit Diagnoses Diagnosis Neuropathy Mononeuritis of unspecified site documented in this encounter Additional Health Concerns Assessment Noted Time PHQ-9 Depression Total Score: 5 02/22/20 25 12:04 PM EDT documented as of this encounter Care Teams Maintainer Central Office Relationship Specialty Start Date End Date Lupe Moralez FNP [address] [place] [address] PCP - General Family Medicine 04/16/22 Perry Quintero MD [address] [place] [address] Cardiology 06/14/24 documented as of this encounter
--- OUTSIDE RECORDS SUMMARY | 2025-05-17 12:29 | XMS_ITS | Encounter Summary ---
Author Organization [employer] Address [address] [facility] 7t [place] [address] Care Team Providers Care Diesel Service Journeyman Name Role Phone Lupe Moralez Primary Care Provider Perry Quintero MD Unavailable [phone] Reason for Visit * Reason Comments Med Refill Encounter Details Date Type Department Care Team (Late st Contact Info) Description 05/09/2023 Refill [facility] MED[facility]INE [address] [place] [address] Lupe Moralez FNP [address] [place], [place] [phone] Gastroesophageal reflux disease, unspecified whether esophagitis present [...] Description 08/03/2025 11:30 AM EST Office Visit [facility] MEDICINE [address] [place] [address] Lupe Moralez FNP [address] [place] [address] documented as of this encounter Visit Diagnoses Diagnosis Gastroesophageal reflux disease, unspecified whether esophagitis present documented in this encounter Additional Health Concerns Assessment Noted Time PHQ-9 Depression Total Score: 5 01/03/20 23 2:27 PM EDT documented as of this encounter Care Teams Diesel Service Journeyman Relationship Specialty Start Date End Date Lupe Moralez FNP [address] [place] [address] PCP - General Family Medicine 04/16/22 Perry Quintero MD [address] [place] [address] Cardiology 06/14/24 documented as of this encounter
--- OUTSIDE RECORDS SUMMARY | 2025-05-17 12:29 | XMS_ITS | Encounter Summary ---
Author Organization [employer] Address [address] [facility] 7[address] [place] [address] Care Team Providers Care Livestock Inspector Name Role Phone Lupe Moralez Primary Care Provider [phone] Perry Quintero MD Unavailable [phone] Reason for Visit * Reason Onset Date Comments Referral 06/19/2023 Encounter Details Date Type Department Care Team ([facility] st Contact Info) Description 06/19/2023 Telephone [facility] MEDICINE [address] [place] [address] Lupe Moralez FNP [address] [place], [place] [phone] Referral Social History Tobacco Use Types Packs/Day [...] Requesting [place] in [place] [facility] [place]. [facility] * Telephone Encounter - Sandeep Hernandez - 06/19/2023 11:18 AM EST Tc from patients daughter requestingphysical therapy referral to be switch [place] [facility] due to [place]. documented in this encounter Plan of Treatment Upcoming Encounters Date Type Department Care Team (Late st Contact Info) Description 08/03/2025 11:30 AM EST Office Visit [facility] [address] [place] [address] Lupe Moralez FNP [address] [place] [address] documented as of this encounter Visit Diagnoses Not on filedocumented in this encounter Additional Health Concerns Assessment Noted Time PHQ-9 Depression Total Score: 5 01/03/20 23 2:27 PM EDT documented as of this encounter Care Teams Livestock Inspector Relationship Specialty Start Date End Date Lupe Moralez FNP [address] [place] [address] PCP - General Family Medicine 04/16/22 Perry Quintero MD [address] [place] [address] Cardiology 06/14/24 documented as of this encounter
--- OUTSIDE RECORDS SUMMARY | 2025-05-17 12:29 | XMS_ITS | Encounter Summary ---
Author Organization [employer] Address [address] [facility] [address] [place] [address] Care Team Providers Care Development Scientist Name Role Phone ClarissaLupe alegria BE Primary Care Provider [phone] Perry Quintero MD Unavailable [phone] Encounter Details Date Type Department Care Team ([facility] st Contact Info) Description 12/31/2024 Orders Only [facility] MED & PEDS [address] [place] [address] Therese Diana MD [address] [place] [address] Anemia, unspecified type Social History Tobacco Use [...] Description 08/03/2025 11:30 AM EST Office Visit [facility] MEDICINE [address] [place] [address] Lupe Moralez FNP [address] [place] [address] documented as of this encounter Visit Diagnoses Diagnosis Anemia, unspecified type documented in this encounter Additional Health Concerns Assessment Noted Time PHQ-9 Depression Total Score: 4 02/09/20 24 10:42 AM EDT documented as of this encounter Care Teams Development Scientist Relationship Specialty Start Date End Date Lupe Moralez FNP [address] [place] [address] PCP - General Family Medicine 04/16/22 Perry Quintero MD [address] [place] [address] Cardiology 06/14/24 documented as of this encounter
--- OUTSIDE RECORDS SUMMARY | 2025-05-17 12:29 | XMS_ITS | Encounter Summary ---
Author Organization [employer] Address [address] [facility] 7t [place] [address] Care Team Providers Care Planting Material Unloader Name Role Phone Lupe Moralez Primary Care Provider [phone] Perry Quintero MD Unavailable [phone] Reason for Visit * Reason Comments Med Refill Encounter Details Date Type Department Care Team ([facility] st Contact Info) Description 05/16/2025 Refill [facility] [address] [place], [place] [phone] Lupe Moralez FNP [address] [place] [address] Type 2 diabetes mellitus without complication, without long-term current use of insulin (HCC); Sleep difficulties Social History Tobacco Use Types [...] Description 08/03/2025 11:30 AM EST Office Visit [facility] [address] [place] [address] Lupe Moralez FNP [address] [place] [address] documented as of this encounter Visit Diagnoses Diagnosis Type 2 diabetes mellitus without complication, without long-term current use of insulin (HCC) Sleep difficulties documented in this encounter Additional Health Concerns Assessment Noted Time PHQ-9 Depression Total Score: 5 02/22/20 25 12:04 PM EDT documented as of this encounter Care Teams Planting Material Unloader Relationship Specialty Start Date End Date Lupe Moralez FNP [address] [place] [address] PCP - General Family Medicine 04/16/22 Perry Quintero MD [address] [place] [address] Cardiology 06/14/24 documented as of this encounter
--- OUTSIDE RECORDS SUMMARY | 2025-05-17 12:29 | XMS_ITS | Encounter Summary ---
Author Organization [employer] Address [address] [facility] 7t [place] [address] Care Team Providers Care Manager Billing Name Role Phone Lupe Moralez Primary Care Provider [phone] Perry Quintero MD Unavailable [phone] Reason for Visit * Reason Onset Date Comments Hospital Follow-up 09/24/2023 Encounter Details Date Type Department Care Team ([facility] st Contact Info) Description 09/24/2023 Telephone [facility] [address] [place] [address] Lupe Moralez FNP [address] [place], [place] [phone] Hospital Follow-up Social History Tobacco Use Types [...] changes. Thank you! Contacted Yanci Morrow via [employer] regarding above message and Yanci reached out to David to coordinate. Yanci confirmed that Candida will coordinate this pre-visit consult. Routing message back to PCP galo is aware and to Abby Lord. * Telephone Encounter - Gely Hernandez RN - 09/25/2023 3:22 PM EST TC placed to patient via [employer] and daughter answered. Daughter states patient unable to come to the phone and the moment and that she handles the patient's medical care and can scheduleHFU for her. Daughter explained that patient was having SOB and rising BP and was admitted at [facility]. Daughterstates that they found pulmonary [...] from pt requesting a HDF appt. Hospital: [facility] Date of admission: 09/17 Discharge date: 09/19 Diagnosed: Cardiovascular * Telephone Encounter - Sandeep Hernandez - 09/24/2023 2:44 PM EST Tc from pt requesting a HDF appt. Hospital: [facility] Date of admission: 09/17 Discharge date: 09/19 Diagnosed: Cardiovascular documented in this encounter Plan of Treatment Upcoming Encounters Date Type Department Care Team (Late st Contact Info) Description 08/03/2025 11:30 AM EST Office Visit [facility] [address] [place] [address] Lupe Moralez FNP [address] [place] [address] documented as of this encounter Visit Diagnoses Not on filedocumented in this encounter Additional Health Concerns Assessment Noted Time PHQ-9 Depression Total Score: 5 01/03/20 23 2:27 PM EDT documented as of this encounter Care Teams Manager Billing Relationship Specialty Start Date End Date Lupe Moralez FNP [address] [place] [address] PCP - General Family Medicine 04/16/22 Perry Quintero MD [address] [place] [address] Cardiology 06/14/24 documented as of this encounter
--- OUTSIDE RECORDS SUMMARY | 2025-05-17 12:29 | XMS_ITS | Encounter Summary ---
Author Organization [employer] Address [address] [facility] [address] [place] [address] Care Team Providers Care Vp Cardiovascular Service Line Name Role Phone ClarissaLupe alegria BE Primary Care Provider Perry Quintero MD Unavailable [phone] Reason for Visit * Reason Comments Med Refill Encounter Details Date Type Department Care Team ([facility] st Contact Info) Description 10/17/2024 Refill [facility] [address] [place], [place] [phone] Tiny Warren MD [address] [place], [place] [phone] Social History Tobacco Use Types Packs/Day Years [...] Description 08/03/2025 11:30 AM EST Office Visit [facility] [address] [place] [address] Lupe Moralez FNP [address] [place] [address] documented as of this encounter Visit Diagnoses Not on filedocumented in this encounter Additional Health Concerns Assessment Noted Time PHQ-9 Depression Total Score: 4 02/09/20 24 10:42 AM EDT documented as of this encounter Care Teams Vp Cardiovascular Service Line Relationship Specialty Start Date End Date Lupe Moralez FNP [address] [place] [address] PCP - General Family Medicine 04/16/22 Perry Quintero MD [address] [place] [address] Cardiology 06/14/24 documented as of this encounter
--- OUTSIDE RECORDS SUMMARY | 2025-05-17 12:29 | XMS_ITS | Encounter Summary ---
Author Organization [employer] Address [address] [facility] 7t [place] [address] Care Team Providers Care Cancer Program Consultant Name Role Phone Lupe Moralez Primary Care Provider [phone] Perry Quintero MD Unavailable [phone] Encounter Details Date Type Department Care Team ([facility] st Contact Info) Description 11/28/[address] [facility] P[facility]S [address] [place] [address] Lupe Moralez FNP [address] [place] [address] Social History Tobacco Use Types Packs/Day Years [...] 11:30 AM EST Office Visit [facility] [address] [place] [address] Lupe Moralez FNP [address] [place] [address] documented as of this encounter Visit Diagnoses Not on filedocumented in this encounter Additional Health Concerns Assessment Noted Time PHQ-9 Depression Total Score: 5 01/03/20 23 2:27 PM EDT documented as of this encounter Care Teams Cancer Program Consultant Relationship Specialty Start Date End Date Lupe Moralez FNP [address] [place] [address] PCP - General Family Medicine 04/16/22 Perry Quintero MD [address] [place] [address] Cardiology 06/14/24 documented as of this encounter
--- OUTSIDE RECORDS SUMMARY | 2025-05-17 12:29 | XMS_ITS | Encounter Summary ---
Author Organization [employer] Address [address] [facility] 7t [place] [address] Care Team Providers Care Ball Assembler Name Role Phone ClarissaLupe alegria BE Primary Care Provider [phone] Perry Quintero MD Unavailable [phone] Reason for Visit * Reason Comments Med Refill Encounter Details Date Type Department Care Team (Late st Contact Info) Description 05/14/2025 Refill [facility] [address] [place] [address] Therese Diana MD [address] [place] [address] Sleep difficulties Social History Tobacco Use Types [...] Description 08/03/2025 11:30 AM EST Office Visit [facility] [address] [place] [address] Lupe Moralez FNP [address] [place] [address] documented as of this encounter Visit Diagnoses Diagnosis Sleep difficulties documented in this encounter Additional Health Concerns Assessment Noted Time PHQ-9 Depression Total Score: 5 02/22/20 25 12:04 PM EDT documented as of this encounter Care Teams Ball Assembler Relationship Specialty Start Date End Date Lupe Moralez FNP [address] [place] [address] PCP - General Family Medicine 04/16/22 Perry Quintero MD [address] [place] [address] Cardiology 06/14/24 documented as of this encounter
== END 2025-05-17 10:36 | disposition home or self-care (01) ==
LOC: HO.LAB 10:35
PROVIDERS: PCP Registered Nurse; Visit Provider Registered Nurse
DX: I25.10 Atherosclerotic heart disease of native coronary artery without angina pectoris (principal); R74.8 Abnormal levels of other serum enzymes
CPT/HCPCS: 36415; 80076; 82977; 85025

== ENCOUNTER 2025-07-04 13:46 | Outpatient (AMB) | payer OTHER, SELFPAY ==
[2025-07-04 14:12] VITALS: BP 120/70; PULSE 79; O2SAT 96; BMI 33.7
--- NOTE | 2025-07-04 14:12 | A.OFFVIS_ITS ---
Vital Signs 07/04/25 14:12 Height 5 ft 3 in Weight 190 lb BMI 33.7 BP 120/70 Blood Pressure Location Rt brachial Position Sitting Pulse 79 Pulse Source Pulse Oximeter Pulse Oximetry (%) 96 Oxygen Delivery Method Room Air Intake Visit Reasons: 6m follow up Director Of Trauma Required: No Accompanied by: Self / Same As Patient Allergies Penicillins Allergy (Intermediate, Verified 07/04/25 14:13) Rash HPI Comments Details: 79 y/o female patient presents with her daughter for follow up of insomnia and VAMSI, she is on CPAP therapy. VAMSI compliance and therapy response (04/01/25-06/30/25) reviewed with the patient. Total use 90/90 days, 7 hours 30min and >4 hours use is 86 days. APAP [id number]. Leaks 11.3/min AHI is 1.9/hr She goes to sleep at 1am, and wakes up at 11am in the morning. She feels refreshed when she wakes up in the mornings. She has insomnia with fragmented s leep patterns, will forget to place the mask on her face. She takes trazodone 50 mg, and melatonin 10 mg, as this improves the duration of her sleep.The pressures are better now since she started using the nasal pillows. She receives her supplies every 3-6months. She washes her mask, rinses the hoses, changes filters, and fills reservoir with water. Her diet is good, she is diabetic and monitors her nutritional intake, takes miralax daily and has a BM daily, she drinks plenty of water.Her mood and memory are stable, she socializes, walks to restoration, goes shopping with her daughter and completes all ADLs with assistance. Denies falls, uses her rolling walker to ambulate. Denies RLS symptoms, parasomnias, morning headaches. PMH Pt had aortic valve replacement in November 2022 and defibrillator 2023. [facility] Medical History Numbness of left hand Bilateral hand numbness Vitamin B12 deficiency Neuropathy Breast cancer, right breast Sleep apnea COVID-19 GERD (gastroesophageal reflux disease) Daytime sleepiness Surgical History History of carpal tunnel release H/O right mastectomy History of bilateral oophorectomies History of cholecystectomy History of appendectomy Family History Father No problems noted. Mother No problems noted. 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) Alcohol intake: never Patient Tobacco Use Status: Never used Tobacco Second Hand Smoke Exposure: No service: No Current occupational status: retired Physical Exam Vital Signs: Last Vital Signs Pulse 79 07/04/25 14:12 BP 120/70 07/04/25 14:12 Pulse Ox 96 07/04/25 14:12 Oxygen Delivery Method Room Air 07/04/25 14:12 BMI result Body Mass Index 33.7 Const General: cooperative, comfortable and no acute distress Nutritional Appearance: overweight Orientation/consciousness: patient oriented x3 HEENT Face and sinus: Yes face symmetric Throat: Yes uvula midline Eyes Pupils: Equal, round and reactive pupils present Neck Neck: Yes full ROM Resp Effort & Inspection: normal respiratory effort and able to speak in complete sentences Neuro General: patient oriented x3 and moves all extremities Cranial nerves: Yes Equal, round and reactive pupils present, Yes Normal accommodation reflex present, Yes Normal facial strength present, Yes Midline tongue present, Yes Ability to bilaterally rotate head present and Yes Ability to bilaterally elevate shoulders present Gait exam (Neuro): Assisted gait required and Assistive device used Motor exam (neuro): 5/5 motor strength present throughout and Normal motor muscle tone present throughout Psych Appearance: grossly normal Affect: normal affect Thought content: Normal thought content present Insight: Good insight present (Psych) Results Reviewed Results Reviewed: VAMSI compliance and therapy response (04/01/25-06/30/25) reviewed with the patient. Total use 90/90 days, 7 hours 30min and >4 hours use is 86 days. APAP [id number]. Leaks 11.3/min AHI is 1.9/hr Assessment & Plan Assessment & Plan (1) VAMSI on CPAP: Comment: Mild degree of sleep apnea. The total AHI was 7/hr and oxygen concetta was 76%. Code(s): G47.33 - Obstructive sleep apnea (adult) (pediatric); Z99.89 - Dependence on other enabling machines and devices Category: Medical (2) Insomnia: Code(s): G47.00 - Insomnia, unspecified Category: Medical Qualifiers: Insomnia type: primary Qualified Code(s): F51.01 - Primary insomnia (3) Sound sensitivity: Code(s): H83.3X9 - Noise effects on inner ear, unspecified ear Category: Medical Qualifiers: Laterality: bilateral Qualified Code(s): H83.3X3 - Noise effects on inner ear, bilateral (4) Excessive daytime sleepiness: Code(s): G47.19 - Other hypersomnia Category: Medical (5) Anemia: Code(s): D64.9 - Anemia, unspecified Category: Medical Qualifiers: Anemia type: unspecified type Qualified Code(s): D64.9 - Anemia, unspecified Plan Continue to use APAP [id number] as patient experiences good clinical effects when using her CPAP. Advised patient to continue to take melatonin to 10 mg and trazodone 50 mg qHS to initiate sleep. Fatigue with excessive daytime sleepiness. Anemia will check labs with ferritin, Iron, B12/Folate, TSH, lyme panel. F/U in 6 months Patient Instructions: Sleep Hygiene provided: set a scheduled bedtime and wake time to help regulate the circadian rhythm and balance the release of pituitary hormones. Sleep in a dark room, temperatures below 68 degrees, and no devices n bed. Limit caffeinated products 6 hours prior to bed, and limit fluids 2-4 hours prior to bed. Gentle night yoga, diffusing essential oils, and playing soft music can be relaxing. Coding Level of Care Code Est Pt Level 4 (98881) Diagnoses VAMSI on CPAP G47.33; Z99.89 Primary insomnia F51.01 Insomnia type: primary Sound sensitivity in both ears H83.3X3 Laterality: bilateral Excessive daytime sleepiness G47.19 Anemia, unspecified type D64.9 Anemia type: unspecified type
--- OUTSIDE RECORDS SUMMARY | 2025-07-04 17:16 | XMS_ITS | Clinical Summary ---
Author Organization [employer] Address [address] [facility] [address] [address] [place] [address] Care Team Providers Care Faculty Support Coordinator Name Role Phone Lupe Moralez Primary Care Provider [phone] Perry Quintero MD Unavailable [phone] Allergies Active Allergy Reactions Criticality Noted Date Comments Penicillins Rash Low 04/16/2022 Medications Entresto 24-26 MG tablet TAKE 1 TABLET BY MOUTH TWICE DAILY IN THE MORNING AND IN THE EVENING 023 Active Elastic Bandages & Supports (Cervical Collar Adjustable) miscIndications:Cervic al paraspinal muscle spasm Use daily x 3w M62.838 1 each 023 Active Diclofenac Sodium 1 % gelIndications:Cervica l paraspinal muscle spasm Use thin layer 3-4 times per day by topical route as needed to affected area for pain 100 g 3 023 Active Blood Glucose Monitoring Suppl (FreeStyle Luther Lite) w/Device kitIndications:Type 2 diabetes mellitus without complication, without long-term current use of insulin (HCC) USE DIRECTED 1 kit 024 Active spironolactone (Aldactone) 25 MG tabletIndications:Ana nary arteriosclerosis TAKE 1 TABLET BY MOUTH EVERYDAY AT NOON 90 tablet 1 024 Active clopidogrel (Plavix) 75 MG tablet Take 1 tablet by mouth Once per day. 024 Active metoprolol succinate XL (Toprol-XL) 25 MG 24 hr tablet Take 1 tablet by mouth Once per day. at noon 024 Active albuterol (Ventolin HFA) 108 (90 Base) MCG/ACT inhalerIndications:Allison rtness of breath Inhale 2 puffs Every 4-6 hours as needed for wheezing or shortness of breath. 18 g 11 024 Active Cyanocobalamin (B-12) 1000 MCG sublingual tablet TAKE 1 TABLET BY MOUTH ONCE WEEKLY FRIDAY MORNING (DISSOLVE) 36 tablet 024 Active Multiple Vitamins-Minerals (CertaVite Senior/Antioxidant) tablet TAKE 1 TABLET BY MOUTH EVERY OTHER DAY AT NOON 90 tablet 3 024 Active Alcohol Swabs (Alcohol Prep) 70 % pads USE DIRECTED 100 each 11 025 Active tiZANidine (Zanaflex) 2 MG tabletIndications:Spas m of muscle of lower back Take 1 tablet (2 mg) by mouth Once daily as needed for muscle spasms. 30 tablet 025 2025 Active glipiZIDE XL (Glucotrol XL) 5 MG 24 hr tabletIndications:Type 2 diabetes mellitus without complication, without long-term current use of insulin (HCC) Take 1 tablet (5 mg) by mouth Once per day if fasting blood sugar above 150. Do not crush, chew, or split. 30 tablet 11 025 Active atorvastatin (Lipitor) 40 MG tablet TAKE 1 TABLET BY MOUTH EVERY EVENING 90 tablet 3 025 Active levothyroxine (Synthroid, Levoxyl) 88 MCG tabletIndications:Hypo thyroidism, unspecified type TAKE 1 TABLET BY MOUTH EVERY MORNING 90 tablet 3 025 Active Blood Pressure kitIndications:Heart failure with reduced ejection fraction (HCC) Please use to check blood pressure as directed. Please fit to patient. Thank you. 1 kit 025 Active Lidocaine 4 % patch Apply topically. Active Melatonin 2.5 MG chewable tablet Chew. Take 1 to 2 gummies prn at bedtime Active Acetaminophen Extra Strength 500 MG tablet TAKE 1 TABLET BY MOUTH EVERY 6 HOURS NEEDED FOR PAIN OR FOR FEVER 120 tablet 3 025 Active hydrocortisone 2.5 % ointmentIndications:Dr josé gates Apply topically Once per day. Apply to back of heels mid-day x 2 weeks. 30 g 1 025 Active FREESTYLE LITE test strip TEST BLOOD SUGAR TWICE DAILY AND NEEDED 100 strip 11 025 Active hydrocortisone (Anusol-HC) 2.5 % rectal creamIndications:Inter nal hemorrhoids Insert into the rectum 2 times daily. 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 90 tablet 1 06/29/20 25 1:57 PM EST 025 Active simethicone (Gas Relief Extra Strength) 125 MG chewable tablet CHEW 1 TABLET BY MOUTH EVERY 6 HOURS NEEDED FOR GAS 120 tablet 3 06/29/20 1:57 PM EST 025 Active polyethylene glycol, PEG, 3350 (MiraLax) 17 GM/SCOOP powder Mix 17 grams of Miralax in (4 to 8 ounces) of beverage once daily as needed for constipatio n. Drink by mouth. 527 g 2 025 Active metFORMIN (Glucophage) 500 MG tabletIndications:Type 2 diabetes mellitus without complication, without long-term current use of insulin ([facility]) TAKE 1 TABLET BY MOUTH TWICE DAILY AT NOON AND IN THE EVENING WITH MEALS 180 tablet 1 025 Active pantoprazole (ProtoNix) 40 MG EC tablet TAKE 1 TABLET BY MOUTH EVERY MORNING BEFORE BREAKFAST 90 tablet 1 025 Active traZODone (Desyrel) 50 MG tabletIndications:Slee p difficulties TAKE 1/2 TO 1 TABLET BY MOUTH AT BEDTIME NEEDED FOR SLEEP 30 tablet 3 06/29/20 25 1:57 PM EST Active budesonide-formoterol (Symbicort) 160-4.5 MCG/ACT inhalerIndications:Allison rtness of breath INHALE 1 PUFF BY MOUTH TWICE DAILY IN THE MORNING AND AT BEDTIME RINSE MOUTH AFTER USING. 10.2 g 3 06/29/20 25 1:57 PM EST 025 Active TRUEplus Lancets 33G miscIndications:Type 2 diabetes mellitus without complication, without long-term current use of insulin (HCC) USE DIRECTED TO TEST BLOOD SUGAR TWICE DAILY NEEDED 100 each 11 025 Active TRUEplus Lancets 33G miscIndications:Type 2 diabetes mellitus without complication, without long-term current use of insulin (HCC) TEST BLOOD SUGAR TWICE DAILY AND NEEDED 100 each 11 024 2024 Discontinued ammonium lactate (Amlactin) 12 % cream Apply topically if needed for dry skin. 385 g 3 024 2024 budesonide-formoterol (Symbicort) 160-4.5 MCG/ACT inhalerIndications:Allison rtness of breath INHALE 1 PUFF BY MOUTH TWICE DAILY IN THE MORNING AND AT BEDTIME RINSE MOUTH AFTER USING. 10.2 g 3 025 2024 Discontinued Active Problems Problem Noted Date Diagnosed Date Other insomnia 02/22/2025 Overview (02/22/2025): Followed by [facility] [place] Neurology & Sleep - [place] Assessment & Plan (02/22/2025 8:54 AM EDT): [...] 8:22 PM EDT): Etiology: unknown Seen in [place] on 09/09/24 and had Hgb of 4.9. Recieved transfusion of about 6 units of blood on 09/11/24. Consult with [facility] [place] Heme/Onc Sep: EGD/colonoscopy w/o evidence of bleed [...] to transfusion threshold. Pending return call from [facility] [place] Heme/Onc Etiology: unknown Seen in [place] on 09/09/24 and had Hgb of 4.9. Recieved transfusion of about 6 units of blood on 09/11/24. Consult with [facility] Heme/Onc Sep: EGD/colonoscopy w/o evidence of bleed Continues with p.o. iron supplement, although discussed possible DC d/t SE. Has IV iron infusion scheduled for 02/22/25. ED precautions reviewed Assessment & Plan (11/07/2024 7:40 PM EDT): -Hemoglobin stable Etiology unknown - GIB in differential. Risk factors: AC Seen in [place] on 09/09/24 and had Hgb of 4.9. Recieved transfusion of about 6 units of blood on 09/11/24. Records requested from [place], available lab work reviewed and sent to scan. Consult with [facility] [place] Heme/Onc Sep 2024, established with [facility] GI March Plan for upcoming EGD/colonoscopy December 2024 Cont p.o. iron supplement. Follow-up with any side effects. ED precautions reviewed Assessment & Plan (09/26/2024 1:37 PM EST): -Hemoglobin stabilized/mild increase over the past week Etiology unknown - GIB in differential. Risk factors: AC Seen in [place] on 09/09/24 and had Hgb of 4.9. Recieved transfusion of about 6 units of blood on 09/11/24. Records requested from [place], available lab work reviewed and sent to scan. Consult with [facility] [place] Heme/Onc 09/21/2024, scheduled with [facility] GI 10/07/2024 Shared decision making to start p.o. iron supplement. Follow-up with any side effects. ED precautions reviewed Assessment & Plan (09/17/2024 7:57 PM EST): Etiology unknown - GIB in differential. Risk factors: AC Seen in [place] on 09/09/24 and had Hgb of 4.9. Recieved transfusion of about 6 units of blood on 09/11/24. Records requested from [place], available lab work reviewed and sent to scan. Referral to [facility] Heme/Onc and [facility] for further eval ED precautions reviewed Assessment & Plan (09/16/2024 1:49 PM EST): Etiology unknown. Seen in [place] on 09/09/24 and had Hgb of 4. Got transfusion of about 6 units of blood on 09/11/24. Requesting records from [place]. -ordered CBC -has follow-up tomorrow. Spasm of [...] location: [facility] with Roxy Sanon. Referral to [facility] [place] [place] Audiology placed 02/13/24 Referral to ENT placed November 2024 Assessment & Plan (02/13/2024 4:49 PM EDT): Wears hearing aids Location where she was previously going for follow up has closed, in need of updated referral. Previous location: [facility] with Roxy Sanon. Referral to [facility] [place] Audiology placed 02/13/24 Also in need of [...] 10-15% on 11/21/23 11/25/23: ICD Implant at [facility] with Dr. Jacob 12/23/23: EF improved [...] Followed by [facility] (Dr. José Miguel Mojica) Gastroesophageal reflux disease 02/27/2023 Overview (02/27/2023): -Pt reports med has been helpful for symptom control -Switch from omeprazole to pantoprazole as less med interaction with plavix Assessment & Plan (02/27/2023 12:54 PM EDT): -Increase to pantoprazole 20-40mg daily -Reports previous eval with endoscopy and colonoscopy in [place] approx 2 years with rec for follow [...] Plan (10/07/2023 4:40 PM EST): Followed by [facility] Dr. Quintero & Dr. Brennan Cardiac stent [...] Plan (06/14/2023 12:10 PM EST): Followed by [facility] Dr. Quintero & Dr. Brennan Cardiac stent placement: 12/17/16 Aortic valve replacement: May 2023 Current cardiac regimen: carvedilol 12.5mg BID DC December 2022 Entresto 24-26mg BID furosemide 20mg daily spironolactone 25mg daily. Antiplatelet - clopidogrel 75 mg daily Statin - simvastatin 20mg nightly Denies chest pain, SOB, palpitations, N/V/D. ED Precautions Assessment & Plan (02/27/2023 12:54 PM EDT): Followed by [facility] Dr. Quintero Cardiac stent placement on 12/17/16 Current cardiac regimen: carvedilol 12.5mg BID DC December 2022 Entresto 24-26mg BID furosemide 20mg daily spironolactone 25mg daily. Antiplatelet - clopidogrel 75 mg daily Statin - simvastatin 20mg nightly Denies chest pain, SOB, palpitations, N/V/D. Assessment & Plan (01/05/2023 3:36 PM EDT): Followed by [facility] Dr. Quintero Cardiac stent placement on 12/17/16 [...] Exam: established with ophthalmology -Dental: referral to [facility] 09/05/23 -Monofilament: abnormal on 04/16/22 and [...] Exam: established with ophthalmology -Dental: referral to [facility] 09/05/23 -Monofilament: abnormal on 04/16/22 and [...] Exam: established with ophthalmology -Dental: referral to [facility] 09/05/23 -Monofilament: abnormal on 04/16/22 and [...] Exam: established with ophthalmology -Dental: referral to [facility] 09/05/23 -Monofilament: abnormal on 04/16/22 and [...] Exam: established with ophthalmology -Dental: referral to [facility] 09/05/23 -Monofilament: abnormal on 04/16/22 and [...] Exam: established with ophthalmology -Dental: referral to [facility] 09/05/23 -Monofilament: abnormal on 04/16/22 and [...] Exam: established with ophthalmology -Dental: referral to [facility] 09/05/23 -Monofilament: abnormal on 04/16/22 and [...] Exam: established with ophthalmology -Dental: referral to [facility] 09/05/23 -Monofilament: abnormal on 04/16/22 and [...] Exam: established with ophthalmology -Dental: referral to [facility] 09/05/23 -Monofilament: abnormal on 04/16/22 and [...] apnea syndrome 04/17/2022 Overview (02/22/2025): Following with [facility] [place] [place] Neu[facility] Sleep in [place], [place] Assessment & Plan (05/04/2025 8:19 PM EDT): - Cont APAP 5-15cm H20 - Continues with good adherence and response to CPAP Assessment & Plan (02/22/2025 8:53 AM EDT): Continues with good adherence and response to CPAP Assessment & Plan (07/29/2022 7:55 PM EST): -Following with [facility] [place] [place] Sleep Medicine Resolved Problems Problem Noted Date Diagnosed Date Resolved Date Chest wall contusion, left, initial encounter 06/06/2006/14/2023 Assessment & Plan (06/06/2023 1:49 PM EDT): Recommended diclofenac gel, tylenol and heat to effected area I will prescribe incentive spirometer to prevent atelectasis. Use albuterol q4h Hospital discharge follow-up 05/19/2023 06/14/2023 Assessment & Plan (05/19/2023 8:19 PM EDT): Patient was hospitalized at [facility] 05-06 to 05-07 due to chronic [...] Encounters Date Type Department Care Team Description 06/22/2025 Refill [facility] [address] [place] [address] Lupe Moralez FNP Type 2 diabetes mellitus without complication, without long-term current use of insulin (HCC) 06/13/2025 Refill [facility] [address] [place] [address] Lupe Moralez FNP Shortness of breath 06/05/2025 Orders Only [facility] [address] [place] [address] Yo Kitchen MD 05/18/2025 Results Follow-Up [facility] [address] [place] [address] Lupe Moralez FNP POCT Glucose, POCT Hgb A1c, Hepatic Function Panel, Additional followed-up results: 2 05/16/2025 Refill [facility] [address] [place] [address] Lupe Moralez FNP Type 2 diabetes mellitus without complication, without long-term current use of insulin (HCC); Sleep difficulties 05/14/2025 Refill [facility] [address] [place] [address] Therese Diana MD Sleep difficulties 05/04/2025 11:15 AM EDT Office Visit [facility] [address] [place] [address] Lupe Moralez FNP Alkaline phosphatase elevation (Primary Dx); Type 2 diabetes mellitus without complication, without long-term current use of insulin (HCC); Coronary arteriosclerosis; Obstructive sleep apnea syndrome; Other insomnia; Anemia, unspecified type 05/04/2025 Travel 04/27/2025 Patient Outreach [facility] [address] [place] [address] Lupe Moralez FNP Pre-visit Planning (SDIA screening completed on 09/17/24 ) 04/21/2025 Refill [facility] [address] [place] [address] Lupe Moralez FNP Neuropathy 04/14/2025 Refill [facility] [address], [place] [phone] Lupe Moralez FNP Neuropathy 04/05/2025 1:40 PM EDT Office Visit [facility] [address], [place] [phone] Name, MD Yg Frontal sinusitis, unspecified chronicity (Primary Dx); Frontal sinus pain; Sore throat; Ear pain, bilateral; Cough, unspecified type; Stuffy and runny nose 04/05/2025 Travel from Last 3 Months Immunizations Immunization [...] Description 08/03/2025 11:30 AM EST Office Visit [facility] [address] [place] [address] Lupe Moralez, TEXTILE KNITTER [address] [place] [address] Health Maintenance Due Date Last Done Comments Dental Oral Exam 1944 Dental Prophylaxis 1944 Diabetes: Foot Exam 1954 Alcohol/Substance Use Screening 1956 DTaP/Tdap/Td Vaccines (1 - Tdap) 1963 RSV Patients and Patients Aged 60 years or older (1 - 1-dose 75+ series) 2019 Zoster Vaccines (3 of 3) 07/02/2022 05/07/2022, 11/03 Dental X-Ray: Bitewings 02/18/2025 02/18/2024 COVID-19 Vaccine ( - 2024- season) 2025 07/03/2021, 10/24/2020, 10/02/2020 Influenza Vaccine (#1) 2025 , 04/16/2022, 2019, Additional history exists Diabetes: Urine Protein Screening 06/14/2025 06/14/2024 Lipid Panel 06/14/2025 06/14/2024, 12/03, 11/01/2022, Additional history exists Diabetes: Hemoglobin A1C 08/04/2025 025, 12/30/2024, 09/17/2024, Additional history exists SDOH Screening 09/17/2025 09/17/2024 Depression Screening 02/21/2026 02/21/2025, 02/22/20 25 Tobacco Screening 05/04/2026 05/04/2025 Dental X-Ray: Full Mouth 02/18/2027 02/18/2024 Eye Exam 06/01/2027 06/01/2025 Pneumococcal Vaccine: 50+ Years Completed 2019, 09/27/2015 [...] Procedure Name Priority Date/Time Associated Diagnosis Comments DIABETES EYE EXAM Routine 06/01/2025 4:02 PM EDT GGT Routine 05/17/2025 10:55 AM EDT Alkaline phosphatase elevation CBC WITH AUTO DIFFERENTIAL Routine 05/17/2025 10:55 AM EDT Coronary arteriosclerosis HEPATIC FUNCTION PANEL Routine 05/17/2025 10:55 AM EDT Alkaline phosphatase elevation POCT GLYCATED HEMOGLOBIN, TOTAL Routine 05/04/2025 12:06 PM EDT Type 2 diabetes mellitus without complication, without long-term current use of insulin ([facility]) POCT GLUCOSE Routine 05/04/2025 12:05 PM EDT Type 2 diabetes mellitus without complication, without long-term current use of insulin ([facility]) POCT RAPID STREP A Routine 04/05/2025 1: 10 PM EDT Sore throat ALBUMIN, RANDOM URINE W/CREATININE Routine 06/14/2024 12:58 PM EST Type 2 diabetes mellitus without complication, without long-term current use of insulin ([facility]) Healthcare maintenance LIPID PANEL, STANDARD Routine 06/14/2024 12:51 PM EST Type 2 diabetes mellitus without complication, without long-term current use of insulin ([facility]) Healthcare maintenance INTRAORAL - COMPLETE SERIES OF RADIOGRAPHIC IMAGES Routine 02/18/2024 2:00 PM EDT from Last 3 Months or Most Recently Relevant to Health Maintenance Results * Diabetes Eye Exam (06/01/2025 4:02 PM EDT) us Historical Provider HEALTH MAINTENANCE Final Result * (ABNORMAL) CBC auto differential (05/17/2025 10:55 AM EDT) White Blood Count 8.4 4.8 - 10.8 X10*3/uL [facility] Red Blood Count 3.99(L) 4.20 - 5.50 X10*6/uL [facility] Hemoglobin 12.6 12.0 - 16.0 g/dl [facility] Hematocrit 39.4 37.0 - 47.0 % [facility] Mean Corpuscular Volume 98.7(H) 80.0 - 98.0 fL [facility] Mean Corpuscular Hemoglobin 31.6 27.0 - 33.0 pg [facility] Mean Corpuscular HGB Conc 32.0 31.0 - 35.0 g/dl [facility] Red Cell Distribution Width 14.8 11.0 - 16.0 % [facility] Platelet Count 181 160 - 400 X10*3/uL [facility] Mean Platelet Volume 11.6 9.4 - 12.3 fL [facility] Neutrophils Percent Auto 70.8 45 - 73 % [facility] Imm Gran Pct Auto 0.4 0.0 - 0.4 % [facility] Lymphocytes Percent Auto 18.4(L) 20 - 40 % [facility] Monocytes Percent Auto 6.9 2 - 11 % [facility] Eosinophils Percent Auto 2.9 0 - 4 % [facility] Basophils Percent Auto 0.6 0 - 2 % [facility] NRBC Pct Auto 0.0 0.0 - 0.2 /100WBC [facility] Neutrophils Absolute Auto 6.0 2.0 - 8.3 x10*3/uL [facility] Imm Gran Abs Auto 0.03 0.00 - 0.03 X10*3/uL [facility] Lymphocytes Absolute Auto 1.6 1.2 - 4.9 X10*3/uL [facility] Monocytes Absolute Auto 0.6 0.1 - 1.2 X10*3/uL [facility] Eosinophils Absolute Auto 0.2 0.0 - 0.4 X10*3/uL [facility] Basophils Absolute Auto 0.1 0.0 - 0.2 X10*3/uL [facility] NRBC Abs Auto 0.000 0.0 - 0.012 X10*3/uL [facility] Blood Venous blood specimen / Unknown 05/17/2025 10:55 AM EDT 05/17/2025 10:55 AM EDT Lupe Moralez TEXTILE KNITTER LAB BLOOD ORDERABLES Final Res ult Performing Organization Address [facility]/ZIP Co de Phone Number [facility] [address] [place] [phone] * (ABNORMAL) Gamma Glutamyl Transferase (GGT) (05/17/2025 10:55 AM EDT) Gamma Glutamyl Transpeptidase 292(H) 7 - 33 U/L [facility] Blood Venous blood specimen / Unknown 05/17/2025 10:55 AM EDT 05/17/2025 10:55 AM EDT Lupe Moralez TEXTILE KNITTER LAB BLOOD ORDERABLES Final Res ult Performing Organization Address [facility] Co de Phone Number [facility] [address] [place] [phone] * (ABNORMAL) Hepatic Function Panel (05/17/2025 10:55 AM EDT) Bilirubin, Total 0.7 0.0 - 1.0 mg/dL [facility] Bilirubin, Direct 0.3 0.0 - 0.5 mg/dL [facility] Aspartate Amino Transferase 25 5 - 31 U/L [facility] Alanine Aminotransferase 30 0 - 31 U/L [facility] Total Protein 7.5 6.5 - 8.0 g/dL [facility] Albumin Level 4.7 3.5 - 5.0 g/dL [facility] Alkaline Phosphatase 206(H) 39 - 117 U/L [facility] Blood Venous blood specimen / Unknown 05/17/2025 10:55 AM EDT 05/17/2025 10:55 AM EDT us Lupe Moralez [facility] LAB BLOOD ORDERABLES Final Res ult [facility] [address] [place] [address] [phone] * (ABNORMAL) POCT Hgb A1c (05/04/2025 12:06 PM EDT) [facility] Hemoglobin A1C 7.6(A) 4.0 - 5.7 % QC Media Lot # [id number] Lot# Expiration Date ,319,050 Blood 05/04/2025 12:0 6 PM EDT Lupe Moralez TEXTILE KNITTER POINT OF CARE TEST ENTER/EDIT ORDERABLES Final Result * (ABNORMAL) POCT Glucose (05/04/2025 12:05 PM EDT) [facility] Glucose Blood, POC 356(A) 60 - 200 mg/dL QC Media Lot # [id number] Lot# Expiration Date ,108,740 Blood Capillary blood specimen / Unknown 05/04/2025 12:05 PM EDT Lupe Moralez TEXTILE K[employer]ITTER POINT OF CARE TEST ENTER/EDIT ORDERABLES Final Result * POCT rapid strep A manually resulted (04/05/2025 1:10 PM EDT) [facility] Rapid Strep A Screen Negative Negative, None Detected Swab 04/05/2025 1:10 PM EDT Yg Reyes MD POINT OF CARE TEST ENTER/EDIT OR DERABLES Final Result * Albumin, Random Urine W/Creatinine (06/14/2024 12:58 PM EST) Creatinine, Urine 54.88 mg/dL [facility] Microalbumin Urine <5.0 mg/L H [facility] Microalbum Creatinine Ratio Ur TNP <30 ug/mg cr [facility] Comment:Unable to calculate albumin/creatinine ratio due to lowmicroalbumin or creatinine result. Urine 06/14/2024 12:5 8 PM EST 06/14/2024 2:08 PM EST us Lupe Moralez TEXT[employer] K[employer]ITTER LAB URINE ORDERABLES Final Res ult [facility] [address] [place] [address] [phone] * (ABNORMAL) Lipid Panel, Standard (06/14/2024 12:51 PM EST) Triglycerides 167(H) <150 mg/dL [facility] Comment:Desirable Triglyceri de: less than 150 mg/dLBorderline High Triglyceride 150-199 mg/dLHigh Triglyceride: 200-499 mg/dLVery High Triglyceride: greater than or equal to 5OO mg/dL Cholesterol 112 <200 mg/dL [facility] Comment:Desirable Cholestero l: less than 200 mg/dLBorderline High Cholesterol: 200-239 mg/dLHigh Cholesterol: greater than 239 mg/dL LDL Cholesterol Calculated 41 <100 mg/dL [facility] Comment:Desirable LDL: less than 100 mg/dLNear Optimal/Above Optimal LDL: 110- 129 mg/dLBorderline High LDL: 130-159 mg/dLHigh LDL: 160-189 mg/dLVery High LDL: greater than or equal to 190 mg/dL HDL Cholesterol 38(L) >40 mg/dL [facility] Comment:Desirable HDL: great er than 40 mg/dL Note: This HDL assay may give artificially low results in patients with liver disease. Blood Venous blood specimen / Unknown 06/14/2024 12:51 PM EST 06/14/2024 2:03 PM EST us Lupe Moralez [facility] BLOOD ORDERABLES Final Res ult [facility] [address] [place] [address] [phone] from Last 3 Months or Most Recently Relevant to Health Maintenance Insurance [facility] JAIL OPTIONS (HMO D-SNP) Member Subscriber Plan / Payer (Ef fective 2022-Present) Name:Charleen Gallo Relation to Subscriber:Self Name:Charleen Gallo Payer ID:Not on file Group ID:[facility] Type:Medicare Address: [address] [place] [address] [place] [employer] [place] [address] DENTAL - [facility] Care Teams Faculty Support Coordinator Relationship Specialty Start Date End Date Lupe Moralez FNP [address] [place] [address] PCP - General Family Medicine 04/16/22 Perry Quintero MD [address] [place] [address] Cardiology 06/14/24
--- OUTSIDE RECORDS SUMMARY | 2025-07-04 17:16 | XMS_ITS | Data Portability ---
Author Organization ID - [employer] [facility] Address [address] [place] [id number] Care Team Providers Care Physician Name Role Phone Unavailable Referring Provider [phone] HIM CCA OTHER Assessment Encounter Date Assessment [...] Orders prednisone 20 mg tablet 2022 023 [facility], [address] [place] [address], [id number], 3 18:51:06 prednisone 20 mg tablet 2022 023 [email or web address] 5 [facility], [address] [place] [address], [id number], 3 18:38:05 ipratropium 0.5 mg-albutero l 3 mg (2.5 mg base)/3 mL nebulizatio n soln 2022 023 [facility], [address] [place] [address], [id number], 3 18:51:10 albuterol sulfate HFA 90 mcg/actuati on aerosol inhaler 2022 023 [id number], [address] [place], [place], [id number], 3 19:15:11 albuterol sulfate 2.5 mg/3 mL [...] Not available Not available Not available 06/01/2024 20812 8001 SNOMED Not Available [employer] - production [...] Available Not Available No t Available [employer] Pomona Lite kit USE DIRECTED active Not Available [...] Recorded Heart rate Body temperature Oxygen saturation Body weight Respiratory rate Systolic And Diastolic Provider Name and Address Organization Details Last Updated DateTime 3 66 /min 98.4 [degF] 95 % 70271.2 56 g 16 /min 109/48 mm[Hg] Not Available [employer] - production 3 18:59:59 Date Recorded Body weight Oxygen saturation Heart rate Body temperature Respiratory rate Systolic And Diastolic Provider Name and Address Organization Details Last Updated DateTime 3 16767.3 6 g 97 % 80 /min 97.7 [degF] 14 /min 96/52 mm[Hg] Not Available [employer] - production 3 18:35:18 Date Recorded Body weight Respiratory rate Body temperature Heart rate Body height Oxygen saturation Systolic And Diastolic Provider Name and Address Organization Details Last Updated DateTime 2 123625. 792 g 18 /min 98.5 [degF] 74 /min 165.1 cm 96 % 101/68 mm[Hg] Not Available [employer] 2 16:36:35 Social History None recorded. Functional Status None recorded. Mental Status None recorded. Family History Nothing Reported. Medical History No medical history recorded. Gynecological HistoryNo gynecological history recorded. Obstetrics History GPAL:G 0 P 0 0 0 0 Past Encounters Encounter ID Performer Location Encounter Start Date Encounter Closed Date Diagnosis/Indication Diagnosis SNOMED-CT Code Diagnosis ICD10 Code Diagnosis IMO Codes Diagnosis Note [id number] Moise Chapa MD Main - [address] [phone] 07/08/2022 16:12:20 08/11/2023 11:58:45 Gastroesophageal reflux disease 341032096 K21.00 This 76-year-ol d [facility] moderately severe abdominal pain. When the raw stock dyeing machine tender arrived, she seemed to indicate heartburn and [...] [id number] Tiffany Saravia MD Main - [facility] [address] [place] [phone] 08/12/2022 18:59:54 08/14/2022 10:30:11 Exacerbation of intermittent asthma 844791556 J45.21 76y F with PMH CHF and asthma with mild asthma exacerbati on. Recently moved from [place]. No prior need for steroid treatment in setting of asthma. VSS. Responded well to albuterol nebs suggesting asthma over CHF. Will send inhaler to pharmacy. Encourage patient to f/u with primary care office to receive inhalers and to call us or primary care office if symptoms not improving with albuterol alone or if worsening. [id number] Yunior Berman MD Main - [facility] [address] [place] [phone] 12/23/2022 18:35:12 12/24/2022 14:44:55 Acute exacerbation of chronic obstructive pulmonary disease 779722713 J44.1 Health Concerns Section Related Observation LastModified by Organization Detai ls LastModified Time None Recorded Concern Status LastModified by Organization Details LastModified Time None Recorded Advance Directives Directive None Recorded Payers Insurance Date Sequence Insurance Name Policy Number Policy Chavez Covered Member ID Chavez Member ID Guarantor Name 08/11/2023 1 [facility] (MEDICARE REPLACEMENT/ADV ANTAGE - PPO) Charleen Hines [id number] Charleen Hines 01/27/2024 1 [facility] - DOS PRIOR TO 2022 - DUAL ELIGIBLE (MEDICARE REPLACEMENT/ADV ANTAGE - HMO) Charleen Hines [id number] Charleen Hines 01/27/2024 1 [facility] - DOS ON OR AFTER 2022 - DUAL ELIGIBLE - CUSTODIAL OPTIONS AND ONE CARE (MEDICARE REPLACEMENT/ADV ANTAGE - HMO) Charleen Hines [id number] Charleen Hines Notes Date Note Type Note Provider Name and Address Organization Details Recorded Time 07/08/2022 text/html ROS as noted in the HPI HPI: Mbr is 76 y/o being reported [...] CRC RN DID NOT NEED FURTHER INFO ELISSA ................... ................... ................... ................... ................... ................... ................... ........ Beef Breaker Note: Sent to a call for a pt complaining of abd pain and dizziness. SC8 arrives on scene, pt is alert and oriented. Airway is patent. Pt and daughter speak Sinhala. Corn Breeder line used. Pt was treated for Covid [...] non-tender, no distention; Skin: pink, warm, dry; [facility] [place] Mylanta PO. Pt advised to stay hydrated, buy Prilosec OTC and follow up with PCP. Red flags discussed. Pt/daughter have no further questions. ................... ................... ................... ................... ................... ................... ................... ........ Disposition: Fulfilled Moise Chapa MD [address] [facility],[address], [place], [address], [employer] 09/06/2022 19:09:07 08/12/2022 text/html HPI: cough since 08/09, has gotten worse, chest congestion/pressure , wheezing at times. Cough is dry. No radiation of pain , jaw, shoulder, arm and neg for fever. cough has made regular activities difficult even walking is hard now. ................... ................... ................... ................... ................... ................... ................... ........ [facility] Nursing Assessment: Comments: review request no further information needed to process visit [facility] HPI: staff interpreter on the lineCHF on lasix and spironolactone, dry cough with chest tightness since Friday. Also some mild shortness of breath. reports possible history of asthma but not on any inhalers. no sick contacts. no rhinorrhea or pharyngitis. has been on inhalers in the past but none currently. Tiffany Saravia MD [address] [place] [address],[address], [place], [address], [employer] 08/12/2022 19:36:51 12/23/2022 text/html HPI: Patient with [...] ................... ................... ................... ................... ................... ................... ........ Beef Breaker Note From Wally Bajwa: Pt reports dry [...] worsening sx which are reviewed with her. [facility] Medication Orders: prednisone 20 mg tablet: Administered Beef Breaker Allergies: Penicillin ................... ................... ................... ................... ................... ................... ................... ........ Disposition: Fulfilled Yunior Berman MD [address] [facility],[address], [place], [address], [place] [facility] [employer] [facility] 12/23/2022 19:20:03 OBGyn Episode No OBEpisode recorded.
--- OUTSIDE RECORDS SUMMARY | 2025-07-04 17:16 | XMS_ITS | Encounter Summary ---
Author Organization [employer] Address [address] [facility] [address] [place] [address] Care Team Providers Care Drupal Php Developer Name Role Phone Lupe Moralez Primary Care Provider [phone] Perry Quintero MD Unavailable [phone] Reason for Visit * Reason Onset Date Comments Med Refill 08/16/2024 Encounter Details Date Type Department Care Team ([facility] st Contact Info) Description 08/16/2024 Telephone [facility] [address] [place] [address] Lupe Moralez FNP [address] [place] [address] Med Refill Social History Tobacco Use Types [...] 24 hr tablet To be sent to: [facility] - [place], [place] - [address] [facility] documented in this encounter Plan of Treatment Upcoming Encounters Date Type Department Care Team (Late st Contact Info) Description 08/03/2025 11:30 AM EST Office Visit [facility] [address] [place] [address] Lupe Moralez FNP [address] [place] [address] documented as of this encounter Visit Diagnoses Not on filedocumented in this encounter Additional Health Concerns Assessment Noted Time PHQ-9 Depression Total Score: 4 02/09/20 24 10:42 AM EDT documented as of this encounter Care Teams Drupal Php Developer Relationship Specialty Start Date End Date Lupe Moralez FNP [address] [place] [address] PCP - General Family Medicine 04/16/22 Perry Quintero MD [address] [place] [address] Cardiology 06/14/24 documented as of this encounter
--- OUTSIDE RECORDS SUMMARY | 2025-07-04 17:16 | XMS_ITS | Encounter Summary ---
Author Organization [employer] Address [address] [facility] [address] [place] [address] Care Team Providers Care Laser Systems Engineer Name Role Phone Lupe Moralez Primary Care Provider [phone] Perry Quintero MD Unavailable [phone] Reason for Visit * Reason Onset Date Comments triage 12/23/2022 Encounter Details Date Type Department Care Team ([facility] st Contact Info) Description 12/23/2022 Telephone [facility] MEDICINE [address] [place] [address] Lupe Moralez FNP [address] [place], [place] [phone] triage Social History Tobacco Use Types Packs/Day [...] Triage call returned to patient Daughter via [employer] Rivet Catcher [id number]. Patient with onset of flu like symptoms [...] with patient. * Telephone Encounter - Henok eNss - 12/23/2022 11:46 AM EDT Symptom: Cough Outcome: Schedule an urgent appointment (within 1 hour) or talk to a nurse or provider soon Reason: Wheezing The caller accepted this outcome speaks irish documented in this encounter Plan of Treatment Upcoming Encounters Date Type Department Care Team ([facility] st Contact Info) Description 08/03/2025 11:30 AM EST Office Visit [facility] [address] [place], [place] [phone] Lupe Moralez FNP [address] [place], [place] [phone] documented as of this encounter Visit Diagnoses Not on filedocumented in this encounter Care Teams Laser Systems Engineer Relationship Specialty Start Date End Date Lupe Moralez FNP [address] [place] [address] PCP - General Family Medicine 04/16/22 Perry Quintero MD [address] [place] [address] Cardiology 06/14/24 documented as of this encounter
--- OUTSIDE RECORDS SUMMARY | 2025-07-04 17:16 | XMS_ITS | Encounter Summary ---
Author Organization [employer] Address [address] [facility] [address] [place] [address] Care Team Providers Care Dynamics Ax Technical Architect Name Role Phone Lupe Moraelz Primary Care Provider [phone] Perry Quintero MD Unavailable [phone] Encounter Details Date Type Department Care Team ([facility] st Contact Info) Description 01/03/2023 Telephone [facility] MED[facility] [address] [place] [address] Lupe Moralez FNP [address] [place] [address] Social History Tobacco Use Types Packs/Day Years [...] - 01/09/2023 9:04 AM EDT T/c to [phone] to [facility] to inform below message from provider, No answer. LVM to call back [phone]. * Telephone Encounter - BE Chavez - 01/09/2023 7:41 AM EDT DME request for nebulizer generated. Thank you. * Telephone Encounter - Esthela Hidalgo - 01/03/2023 12:55 PM EDT Tc from [facility] from [facility] requesting a nebulizer machine . Any question please call phone # [phone] ext [phone]. Please fax order to [phone] documented in this encounter Plan of Treatment Upcoming Encounters Date Type Department Care Team (Late st Contact Info) Description 08/03/2025 11:30 AM EST Office Visit [facility] [address] [place] [address] Lupe Moralez FNP [address] [place] [address] documented as of this encounter Visit Diagnoses Not on filedocumented in this encounter Additional Health Concerns Assessment Noted Time PHQ-9 Depression Total Score: 5 01/03/20 23 2:27 PM EDT documented as of this encounter Care Teams Dynamics Ax Technical Architect Relationship Specialty Start Date End Date Lupe Moralez FNP [address] [place] [address] PCP - General Family Medicine 04/16/22 Perry Quintero MD [address] [place] [address] Cardiology 06/14/24 documented as of this encounter
--- OUTSIDE RECORDS SUMMARY | 2025-07-04 17:16 | XMS_ITS | Encounter Summary ---
Author Organization [employer] Address [address] [facility] [address] [place] [address] Care Team Providers Care Running Rigger Name Role Phone Lupe Moralez Primary Care Provider [phone] Perry Quintero MD Unavailable [phone] Reason for Visit * Reason Onset Date Comments ER Follow-up 01/27/2023 Encounter Details Date Type Department Care Team ([facility] st Contact Info) Description 01/27/2023 Telephone [facility] MEDICINE [address] [place] [address] Lupe Moralez FNP [address] [place], [place] [phone] ER Follow-up Social History Tobacco Use Types [...] - 01/28/2023 9:55 AM EDT T/C to [phone] for below message, pt. Is doing good. Pt. Schedule for ED follow up on 02/05/2023. Pt. Also advised to go to nearest ED in case of any new, return or worsening symptoms including CP, SOB or breathing problem. [facility] hours are reviewed. ED summery printed and scanned into pt's chart. * Telephone Encounter - Eleni Rahman - 01/27/2023 1:44 PM EDT Patient calling to report ED visit on 01/23/23 at [facility]. Seen for breathing trouble and asthma. Patient advised will forward to team nurse for follow up. Patient and daughter speaks kyrgyz. documented in this encounter Plan of Treatment Upcoming Encounters Date Type Department Care Team (Late st Contact Info) Description 08/03/2025 11:30 AM EST Office Visit [facility] [address] [place] [address] Lupe Moralez FNP [address] [place] [address] documented as of this encounter Visit Diagnoses Not on filedocumented in this encounter Additional Health Concerns Assessment Noted Time PHQ-9 Depression Total Score: 5 01/03/20 23 2:27 PM EDT documented as of this encounter Care Teams Running Rigger Relationship Specialty Start Date End Date Lupe Moralez FNP [address] [place] [address] PCP - General Family Medicine 04/16/22 Perry Quintero MD [address] [place] [address] Cardiology 06/14/24 documented as of this encounter
--- OUTSIDE RECORDS SUMMARY | 2025-07-04 17:16 | XMS_ITS | Encounter Summary ---
Author Organization [employer] Address [address] [place] [address] [address] [place] [address] Care Team Providers Care Inspector Multifocal Lens Name Role Phone ClarissaLupe alegria BE Primary Care Provider [phone] Perry Quintero MD Unavailable [phone] Encounter Details Date Type Department Care Team ([facility] st Contact Info) Description 07/24/2022 Orders Only [facility] [address] [place] [address] Aislinn Valle LPN Social History Tobacco Use [...] Susceptible to bactrim, however pt admitted at [facility] few days later d/t HUSEYIN. documented in this encounter Plan of Treatment Upcoming Encounters Date Type Department Care Team (Late st Contact Info) Description 08/03/2025 11:30 AM EST Office Visit [facility] [address] [place] [address] Lupe Moralez, BE [address] [place] [address] documented as of this encounter Procedures Procedure [...] 4:03 PM EDT 06/03/2023 6:38 PM EDT Comment:[facility] Narrative [facility] - 06/05/2023 12:49 PM EDT Urine Culture Report Result Urine Culture < 10,000 cfu/ml Specimen Source: Urine clean catch Yg Reyes MD LAB MICROBIOLOGY - GENERAL ORDER CASIMIRO Final Result [facility] [address] [place] [phone] * Lactic Acid (03/15/2023 6:29 PM EDT) Lactic Acid 1.2 0.5 - 2.0 mmol/L [facility] 03/15/2023 6:29 PM EDT 03/15/2023 6:32 PM EDT [facility] External Provider LAB BLO OD ORDERABLES Final Result [facility] [address] [place] [address] [phone] * Lipase (03/15/2023 3:34 PM EDT) Lipase 22 8 - 78 U/L [facility] 03/15/2023 3:34 PM EDT 03/15/2023 3:41 PM EDT us Generic External Data Provider LAB BLOOD ORDERAB LES Final Result [facility] [address] [place] [phone] * (ABNORMAL) Comprehensive Metabolic Panel (03/15/2023 3:34 PM EDT) Sodium 137 135 - 145 mmol/L [facility] Potassium 4.7 3.3 - 5.1 mmol/L [facility] Chloride 102 96 - 108 mmol/L [facility] Carbon Dioxide 23 22 - 29 mmol/L [facility] Anion Gap 17 12 - 20 [facility] Urea Nitrogen (BUN) 32(H) 9 - 16 mg/dL [facility] Creatinine, Serum 1.83(H) 0.5 - 1.4 mg/dL [facility] Creatinine Clr Calc Pharmacy 27.9 [facility] Comment:Provided height and weight: 162.56 cm,92.533 kg.eGFR (calculated from the MDRD study equation) and eCrCl(calculated from the Cockcroft-Gault equation) are based ondifferent parameters and may not yield comparable results.If eCrCl result is absurd, please check patient'sheight/weight. Estimated Glomerular Filt Rate 27 [facility] Comment:NOTE: For -Am erican individuals, multiply the result by 1.210.Chronic Kidney Disease: Estimated GFR < 60 mL/min/[id number] Kidney Disease: Estimated GFR < 15 mL/min/1.73m2 Glucose 254(H) 60 - 115 mg/dL [facility] Calcium 9.8 8.4 - 10.2 mg/dL [facility] Bilirubin, Total 0.4 0.0 - 1.0 mg/dL [facility] Aspartate Amino Transferase 17 5 - 31 U/L [facility] Alanine Aminotransferase 12 0 - 31 U/L [facility] Total Protein 7.5 6.5 - 8.0 g/dL [facility] Albumin Level 4.3 3.5 - 5.0 g/dL [facility] Alkaline Phosphatase 72 39 - 117 U/L [facility] 03/15/2023 3:34 PM EDT 03/15/2023 3:41 PM EDT [facility] External Provider LAB BLO OD ORDERABLES Final Result Performing Organization Address City/[facility] Co de Phone Number [facility] [address] [place] [phone] * (ABNORMAL) Lactic Acid (03/15/2023 3:34 PM EDT) Lactic Acid 2.6(HH) 0.5 - 2.0 mmol/L [facility] Comment:Critical value for t est(s):LACTA Results called to anny back by:TAE Person calling:EDWARD Date:03/15/23Time:1610 03/15/2023 3:34 PM EDT 03/15/2023 3:41 PM EDT [facility] External Provider LAB BLO OD ORDERABLES Final Result Performing Organization Address [facility] Co de Phone Number [facility] [address] [place] [phone] * (ABNORMAL) Urinalysis, Complete, with Reflex to Culture (03/15/2023 3:34 PM EDT) Color Urine Yellow [facility] Appearance Urine Clear [facility] PH 7.0 5.0 - 9.0 [facility] Glucose Urine UA >=1000(A) Negative mg/dL [facility] Urine Blood Large (3+)(A) Negative [facility] Specific [place] - Urine 1.020 1.005 - 1.025 [facility] Urine Protein Negative Neg-Trace mg/dL [facility] Urine Ketones Negative Negative mg/dL [facility] Nitrite Urine Negative Negative [facility] Leukocyte Esterase Urine Negative Negative [facility] RBC Urine >20(A) 0 - 2 /HPF [facility] Urine WBC 0-5 0 - 5 /HPF [facility] Urine Squamous Epithelial Cell 0-2 0 - 2 /HPF [facility] Urine Bacteria None Seen None Seen [facility] Hyaline Casts, Urine 0-2 0 - 2 /LPF [facility] 03/15/2023 3:34 PM EDT 03/15/2023 3:41 PM EDT Narrative [facility] - 03/15/2023 4:19 PM EDT [id number], Clean Catch us [facility] External Provider LAB URI NE ORDERABLES Final Result [facility] [address] [place] [phone] * (ABNORMAL) CBC auto differential (03/15/2023 3:34 PM EDT) White Blood Count 7.2 4.8 - 10.8 X10*3/uL [facility] Red Blood Count 3.64(L) 4.20 - 5.50 X10*6/uL [facility] Hemoglobin 11.7(L) 12.0 - 16.0 g/dl [facility] Hematocrit 35.1(L) 37.0 - 47.0 % [facility] Mean Corpuscular Volume 96.4 80.0 - 98.0 fL [facility] Mean Corpuscular Hemoglobin 32.1 27.0 - 33.0 pg [facility] Mean Corpuscular HGB Conc 33.3 31.0 - 35.0 g/dl [facility] Red Cell Distribution Width 11.9 11.0 - 16.0 % [facility] Platelet Count 246 160 - 400 X10*3/uL [facility] Mean Platelet Volume 10.3 9.4 - 12.3 fL [facility] Neutrophils Percent Auto 66.7 45 - 73 % [facility] Imm Gran Pct Auto 0.4 0.0 - 0.4 % [facility] Lymphocytes Percent Auto 22.0 20 - 40 % [facility] Monocytes Percent Auto 6.4 2 - 11 % [facility] Eosinophils Percent Auto 4.1(H) 0 - 4 % [facility] Basophils Percent Auto 0.4 0 - 2 % [facility] NRBC Pct Auto 0.0 0.0 - 0.2 /100WBC [facility] Neutrophils Absolute Auto 4.8 2.0 - 8.3 x10*3/uL [facility] Imm Gran Abs Auto 0.03 0.00 - 0.03 X10*3/uL [facility] Lymphocytes Absolute Auto 1.6 1.2 - 4.9 X10*3/uL [facility] Monocytes Absolute Auto 0.5 0.1 - 1.2 X10*3/uL [facility] Eosinophils Absolute Auto 0.3 0.0 - 0.4 X10*3/uL [facility] Basophils Absolute Auto 0.0 0.0 - 0.2 X10*3/uL [facility] NRBC Abs Auto 0.000 0.0 - 0.012 X10*3/uL [facility] 03/15/2023 3:34 PM EDT 03/15/2023 3:41 PM EDT us [facility] External Provider LAB BLO OD ORDERABLES Final Result [facility] [address] [place] [phone] * Culture, Urine, Routine (03/11/2023 4:02 PM EDT) Urine specimen obtained by clean catch procedure / Unknown 03/11/2023 4:02 PM EDT 03/11/2023 6:59 PM EDT Comment:[facility] Narrative [facility] - 03/13/2023 8:43 AM EDT Escherichia coli Quant 50,000 to 100,000 cfu/mL Escherichia coli: Ampicillin 8(S) Escherichia coli: Ceftriaxone <=0.25(S) Escherichia coli: Gentamicin <=1(S) Escherichia coli: Levofloxacin >=8(R) Escherichia coli: Nitrofurantoin <=16(S) Escherichia coli: Trimethoprim/Sulfamethoxazole <=20(S) Specimen Source: Urine clean catch [facility] LAB MICROBIOLOGY - GENERAL ORDER CASIMIRO Final Result Performing Organization Address [facility] de Phone Number [facility] [address] [place] [phone] * Calcium (02/10/2023 11:24 AM EDT) Calcium 9.8 8.4 - 10.2 mg/dL [facility] 02/10/2023 11:2 4 AM EDT 02/10/2023 11:24 AM EDT [facility] External Provider LAB BLO OD ORDERABLES Final Result Performing Organization Address [facility] de Phone Number [facility] [address] [place] [phone] * Creatinine, Serum (02/10/2023 11:24 AM EDT) Creatinine, Serum 1.13 0.5 - 1.4 mg/dL [facility] Estimated Glomerular Filt Rate 47 [facility] Comment:NOTE: For -Am erican individuals, multiply the result by 1.210.Chronic Kidney Disease: Estimated GFR < 60 mL/min/1.26b4Fjugah Kidney Disease: Estimated GFR < 15 mL/min/1.73m2 02/10/2023 11:2 4 AM EDT 02/10/2023 11:24 AM EDT [facility] External Provider LAB BLO OD ORDERABLES Final Result Performing Organization Address [facility] Co de Phone Number [facility] [address] [place] [phone] * (ABNORMAL) BUN (Blood Urea Nitrogen) (02/10/2023 11:24 AM EDT) Urea Nitrogen (BUN) 24(H) 9 - 16 mg/dL [facility] 02/10/2023 11:2 4 AM EDT 02/10/2023 11:24 AM EDT [facility] External Provider LAB BLO OD ORDERABLES Final Result Performing Organization Address [facility] Co de Phone Number [facility] [address] [place] [address] [phone] * Electrolyte Panel (02/10/2023 11:24 AM EDT) Sodium 141 135 - 145 mmol/L [facility] Potassium 4.0 3.3 - 5.1 mmol/L [facility] Chloride 105 96 - 108 mmol/L [facility] Carbon Dioxide 25 22 - 29 mmol/L [facility] Anion Gap 15 12 - 20 [facility] 02/10/2023 11:2 4 AM EDT 02/10/2023 11:24 AM EDT [facility] External Provider LAB BLO OD ORDERABLES Final Result Performing Organization Address [facility] Co de Phone Number [facility] [address] [place] [phone] * (ABNORMAL) Urinalysis, Complete, with Reflex to Culture (02/02/2023 3:16 AM EDT) Color Urine Yellow [facility] Appearance Urine Clear [facility] PH 5.5 5.0 - 9.0 [facility] Glucose Urine UA >=1000(A) Negative mg/dL [facility] Urine Blood Negative Negative [facility] Specific [place] - Urine 1.025 1.005 - 1.025 [facility] Urine Protein Negative Neg-Trace mg/dL [facility] Urine Ketones Negative Negative mg/dL [facility] Nitrite Urine Negative Negative [facility] Leukocyte Esterase Urine Negative Negative [facility] RBC Urine 3-5(A) 0 - 2 /HPF [facility] Urine WBC 0-5 0 - 5 /HPF [facility] Urine Squamous Epithelial Cell 0-2 0 - 2 /HPF [facility] Urine Bacteria None Seen None Seen [facility] Hyaline Casts, Urine 0-2 0 - 2 /LPF [facility] 02/02/2023 3:16 AM EDT 02/02/2023 3:18 AM EDT Narrative [facility] - 02/02/2023 3:28 AM EDT [id number], Clean Catch [facility] External Provider LAB URI NE ORDERABLES Final Result Performing Organization Address [facility] Co de Phone Number [facility] [address] [place] [phone] * Sed Rate by Modified Heavenly (02/02/2023 2:37 AM EDT) Erythrocyte Sedimentation Rate 7 0 - 20 MM/HR [facility] Comment:Patients with polycy themia and many hemoglobin abnormalitiesmay have depressed sed rates whereas patients with anemiamay have elevated sed rates. 02/02/2023 2:37 AM EDT 02/02/2023 2:43 AM EDT [facility] External Provider LAB BLO OD ORDERABLES Final Result Performing Organization Address [facility] Co de Phone Number [facility] [address] [place] [phone] * TSH W/Reflex to FT4 (02/02/2023 2:37 AM EDT) TSH reflex Free T4 2.61 0.32 - 4.0 uIU/mL [facility] 02/02/2023 2:37 AM EDT 02/02/2023 2:43 AM EDT [facility] External Provider LAB BLO OD ORDERABLES Final Result Performing Organization Address City/[facility]/ZIP Co de Phone Number [facility] [address] [place] [phone] * B Type Natriuretic Peptide (BNP) (02/02/2023 2:37 AM EDT) Pathologist [facility] B Type Natriuretic Peptide 72 <100 pg/mL [facility] Comment:For those patients w ho are being treated with Natrecor(nesiritide, recombinant BNP), BNP testing should beperformed at least two hours post treatment in order toensure that only endogenous levels of BNP are detected. 02/02/2023 2:37 AM EDT 02/02/2023 2:43 AM EDT [facility] External Provider LAB BLO OD ORDERABLES Final Result Performing Organization Address [facility] Co de Phone Number [facility] [address] [place] [phone] * High Sensitivity Troponin I (02/02/2023 2:37 AM EDT) Pathologist [facility] TROPONIN I HIGH SENSITIVITY 3.7 <3.5 - 17.0 ng/L [facility] Comment:The Tony high sens itivity Troponin-I results should beused in conjunction with other diagnostic information suchas ECG, clinical observations and information, and patientsymptoms to aid in the diagnosis of MN. 02/02/2023 2:37 AM EDT 02/02/2023 2:43 AM EDT [facility] External Provider LAB BLO OD ORDERABLES Final Result Performing Organization Address [facility]/ZIP Co de Phone Number [facility] [address] [place] [phone] * (ABNORMAL) Basic Metabolic Panel (02/02/2023 2:37 AM EDT) Sodium 139 135 - 145 mmol/L [facility] Comment:Lipemic Specimen Potassium 4.3 3.3 - 5.1 mmol/L [facility] Comment:Lipemic Specimen Chloride 100 96 - 108 mmol/L [facility] Comment:Lipemic Specimen Carbon Dioxide 25 22 - 29 mmol/L [facility] Anion Gap 18 12 - 20 [facility] Urea Nitrogen (BUN) 38(H) 9 - 16 mg/dL [facility] Comment:Lipemic Specimen Creatinine, Serum 1.58(H) 0.5 - 1.4 mg/dL [facility] Comment:Lipemic Specimen Creatinine Clr Calc Pharmacy 32.4 [facility] Comment:Provided height and weight: 162.56 cm,92.986 kg.eGFR (calculated from the MDRD study equation) and eCrCl(calculated from the Cockcroft-Gault equation) are based ondifferent parameters and may not yield comparable results.If eCrCl result is absurd, please check patient'sheight/weight. Estimated Glomerular Filt Rate 32 [facility] Comment:NOTE: For -Am erican individuals, multiply the result by 1.210.Chronic Kidney Disease: Estimated GFR < 60 mL/min/[id number] Kidney Disease: Estimated GFR < 15 mL/min/1.73m2 Glucose 230(H) 60 - 115 mg/dL [facility] Comment:Lipemic Specimen Calcium 10.5(H) 8.4 - 10.2 mg/dL [facility] Comment:Lipemic Specimen 02/02/2023 2:37 AM EDT 02/02/2023 2:43 AM EDT us [facility] External Provider LAB BLO OD ORDERABLES Final Result [facility] [address] [place] [phone] * (ABNORMAL) CBC auto differential (02/02/2023 2:37 AM EDT) White Blood Count 9.2 4.8 - 10.8 X10*3/uL [facility] Red Blood Count 3.86(L) 4.20 - 5.50 X10*6/uL [facility] Hemoglobin 12.9 12.0 - 16.0 g/dl [facility] Hematocrit 37.5 37.0 - 47.0 % [facility] Mean Corpuscular Volume 97.2 80.0 - 98.0 fL [facility] Mean Corpuscular Hemoglobin 33.4(H) 27.0 - 33.0 pg [facility] Mean Corpuscular HGB Conc 34.4 31.0 - 35.0 g/dl [facility] Red Cell Distribution Width 12.6 11.0 - 16.0 % [facility] Platelet Count 281 160 - 400 X10*3/uL [facility] Mean Platelet Volume 10.2 9.4 - 12.3 fL [facility] Neutrophils Percent Auto 58.2 45 - 73 % [facility] Imm Gran Pct Auto 1.0(H) 0.0 - 0.4 % [facility] Lymphocytes Percent Auto 32.1 20 - 40 % [facility] Monocytes Percent Auto 6.3 2 - 11 % [facility] Eosinophils Percent Auto 2.1 0 - 4 % [facility] Basophils Percent Auto 0.3 0 - 2 % [facility] NRBC Pct Auto 0.0 0.0 - 0.2 /100WBC [facility] Neutrophils Absolute Auto 5.4 2.0 - 8.3 x10*3/uL [facility] Imm Gran Abs Auto 0.09(H) 0.00 - 0.03 X10*3/uL [facility] Lymphocytes Absolute Auto 3.0 1.2 - 4.9 X10*3/uL [facility] Monocytes Absolute Auto 0.6 0.1 - 1.2 X10*3/uL [facility] Eosinophils Absolute Auto 0.2 0.0 - 0.4 X10*3/uL [facility] Basophils Absolute Auto 0.0 0.0 - 0.2 X10*3/uL [facility] NRBC Abs Auto 0.000 0.0 - 0.012 X10*3/uL [facility] 02/02/2023 2:37 AM EDT 02/02/2023 2:43 AM EDT [facility] External Provider LAB BLO OD ORDERABLES Final Result Performing Organization Address [facility] de Phone Number [facility] [address] [place] [phone] * (ABNORMAL) B Type Natriuretic Peptide (BNP) (01/23/2023 5:48 PM EDT) [facility] B Type Natriuretic Peptide 119(H) <100 pg/mL [facility] Comment:For those patients w ho are being treated with Natrecor(nesiritide, recombinant BNP), BNP testing should beperformed at least two hours post treatment in order toensure that only endogenous levels of BNP are detected. 01/23/2023 5:48 PM EDT 01/23/2023 9:15 PM EDT [facility] External Provider LAB BLO OD ORDERABLES Final Result Performing Organization Address [facility] de Phone Number [facility] [address] [place] [phone] * (ABNORMAL) Basic Metabolic Panel (01/23/2023 5:48 PM EDT) [facility] Sodium 138 135 - 145 mmol/L [facility] Potassium 4.2 3.3 - 5.1 mmol/L [facility] Chloride 105 96 - 108 mmol/L [facility] Carbon Dioxide 23 22 - 29 mmol/L [facility] Anion Gap 14 12 - 20 [facility] Urea Nitrogen (BUN) 22(H) 9 - 16 mg/dL [facility] Creatinine, Serum 0.99 0.5 - 1.4 mg/dL [facility] Creatinine Clr Calc Pharmacy 50.3 [facility] Comment:Provided height and weight: 160.02 cm,91.626 kg.eGFR (calculated from the MDRD study equation) and eCrCl(calculated from the Cockcroft-Gault equation) are based ondifferent parameters and may not yield comparable results.If eCrCl result is absurd, please check patient'sheight/weight. Estimated Glomerular Filt Rate 54 [facility] Comment:NOTE: For -Am erican individuals, multiply the result by 1.210.Chronic Kidney Disease: Estimated GFR < 60 mL/min/1.49o2Utkwwi Kidney Disease: Estimated GFR < 15 mL/min/1.73m2 Glucose 119(H) 60 - 115 mg/dL [facility] Calcium 10.2 8.4 - 10.2 mg/dL [facility] 01/23/2023 5:48 PM EDT 01/23/2023 6:01 PM EDT us [facility] External Provider LAB BLO OD ORDERABLES Final Result [facility] [address] [place] [phone] * Hepatic Function Panel (01/23/2023 5:48 PM EDT) Bilirubin, Total 0.6 0.0 - 1.0 mg/dL [facility] Bilirubin, Direct 0.2 0.0 - 0.5 mg/dL [facility] Aspartate Amino Transferase 12 5 - 31 U/L [facility] Alanine Aminotransferase 8 0 - 31 U/L [facility] Total Protein 7.2 6.5 - 8.0 g/dL [facility] Albumin Level 4.1 3.5 - 5.0 g/dL [facility] Alkaline Phosphatase 72 39 - 117 U/L [facility] 01/23/2023 5:48 PM EDT 01/23/2023 6:01 PM EDT [facility] External Provider LAB BLO OD ORDERABLES Final Result Performing Organization Address [facility] Phone Number [facility] [address] [place] [address] [phone] * High Sensitivity Troponin I (01/23/2023 5:48 PM EDT) TROPONIN I HIGH SENSITIVITY <2.7 <3.5 - 17.0 ng/L [facility] Comment:The Tony high sens itivity Troponin-I results should beused in conjunction with other diagnostic information suchas ECG, clinical observations and information, and patientsymptoms to aid in the diagnosis of MN. 01/23/2023 5:48 PM EDT 01/23/2023 6:01 PM EDT [facility] External Provider LAB BLO OD ORDERABLES Final Result Performing Organization Address [facility] Number [facility] [address] [place] [phone] * (ABNORMAL) APTT (01/23/2023 5:48 PM EDT) Pathologist [facility] Partial Thromboplastin Time 24.9(L) 26.0 - 36.4 SEC [facility] 01/23/2023 5:48 PM EDT 01/23/2023 6:01 PM EDT [facility] External Provider LAB BLO OD ORDERABLES Final Result Performing Organization Address [facility] de Phone Number [facility] [address] [place] [phone] * Prothrombin Time-INR (01/23/2023 5:48 PM EDT) Prothrombin Time 10.0 10.0 - 13.1 SEC [facility] INTERNATIONAL NORM RATIO 0.9 0.9 - 1.1 [facility] Comment:INTERNATIONAL NORMAL IZED [...] PM EDT 01/23/2023 6:01 PM EDT us [facility] External Provider LAB BLO OD ORDERABLES Final Result Performing Organization Address City/State/[facility] Co de Phone Number [facility] [address] [place] [phone] * (ABNORMAL) CBC auto differential (01/23/2023 5:48 PM EDT) White Blood Count 7.5 4.8 - 10.8 X10*3/uL [facility] Red Blood Count 3.42(L) 4.20 - 5.50 X10*6/uL [facility] Hemoglobin 11.2(L) 12.0 - 16.0 g/dl [facility] Hematocrit 33.6(L) 37.0 - 47.0 % [facility] Mean Corpuscular Volume 98.2(H) 80.0 - 98.0 fL [facility] Mean Corpuscular Hemoglobin 32.7 27.0 - 33.0 pg [facility] Mean Corpuscular HGB Conc 33.3 31.0 - 35.0 g/dl [facility] Red Cell Distribution Width 12.5 11.0 - 16.0 % [facility] Platelet Count 238 160 - 400 X10*3/uL [facility] Mean Platelet Volume 10.3 9.4 - 12.3 fL [facility] Neutrophils Percent Auto 56.7 45 - 73 % [facility] Imm Gran Pct Auto 0.4 0.0 - 0.4 % [facility] Lymphocytes Percent Auto 26.0 20 - 40 % [facility] Monocytes Percent Auto 9.9 2 - 11 % [facility] Eosinophils Percent Auto 6.3(H) 0 - 4 % [facility] Basophils Percent Auto 0.7 0 - 2 % [facility] NRBC Pct Auto 0.0 0.0 - 0.2 /100WBC [facility] Neutrophils Absolute Auto 4.2 2.0 - 8.3 x10*3/uL [facility] Imm Gran Abs Auto 0.03 0.00 - 0.03 X10*3/uL [facility] Lymphocytes Absolute Auto 1.9 1.2 - 4.9 X10*3/uL [facility] Monocytes Absolute Auto 0.7 0.1 - 1.2 X10*3/uL [facility] Eosinophils Absolute Auto 0.5(H) 0.0 - 0.4 X10*3/uL [facility] Basophils Absolute Auto 0.1 0.0 - 0.2 X10*3/uL [facility] NRBC Abs Auto 0.000 0.0 - 0.012 X10*3/uL [facility] 01/23/2023 5:48 PM EDT 01/23/2023 6:01 PM EDT us [facility] External Provider LAB BLO OD ORDERABLES Final Result [facility] [address] [place] [phone] * B Type Natriuretic Peptide (BNP) (12/18/2022 10:20 AM EDT) B Type Natriuretic Peptide 95 <100 pg/mL [facility] Comment:For those patients w ho are being treated with Natrecor(nesiritide, recombinant BNP), BNP testing should beperformed at least two hours post treatment in order toensure that only endogenous levels of BNP are detected. 12/18/2022 10:2 0 AM EDT 12/18/2022 10:20 AM EDT [facility] External Provider LAB BLO OD ORDERABLES Final Result Performing Organization Address [facility] de Phone Number [facility] [address] [place] [phone] * (ABNORMAL) APTT (12/18/2022 10:20 AM EDT) Pathologist [facility] Partial Thromboplastin Time 24.7(L) 26.0 - 36.4 SEC [facility] 12/18/2022 10:2 0 AM EDT 12/18/2022 10:20 AM EDT [facility] External Provider LAB BLO OD ORDERABLES Final Result Performing Organization Address [facility] Phone Number [facility] [address] [place] [address] [phone] * (ABNORMAL) CBC auto differential (12/18/2022 10:20 AM EDT) [facility] White Blood Count 9.0 4.8 - 10.8 X10*3/uL [facility] Red Blood Count 3.63(L) 4.20 - 5.50 X10*6/uL [facility] Hemoglobin 11.8(L) 12.0 - 16.0 g/dl [facility] Hematocrit 35.4(L) 37.0 - 47.0 % [facility] Mean Corpuscular Volume 97.5 80.0 - 98.0 fL [facility] Mean Corpuscular Hemoglobin 32.5 27.0 - 33.0 pg [facility] Mean Corpuscular HGB Conc 33.3 31.0 - 35.0 g/dl [facility] Red Cell Distribution Width 12.4 11.0 - 16.0 % [facility] Platelet Count 221 160 - 400 X10*3/uL [facility] Mean Platelet Volume 10.6 9.4 - 12.3 fL [facility] Neutrophils Percent Auto 73.6(H) 45 - 73 % [facility] Imm Gran Pct Auto 0.2 0.0 - 0.4 % [facility] Lymphocytes Percent Auto 17.1(L) 20 - 40 % [facility] Monocytes Percent Auto 6.4 2 - 11 % [facility] Eosinophils Percent Auto 2.1 0 - 4 % [facility] Basophils Percent Auto 0.6 0 - 2 % [facility] NRBC Pct Auto 0.0 0.0 - 0.2 /100WBC [facility] Neutrophils Absolute Auto 6.7 2.0 - 8.3 x10*3/uL [facility] Imm Gran Abs Auto 0.02 0.00 - 0.03 X10*3/uL [facility] Lymphocytes Absolute Auto 1.6 1.2 - 4.9 X10*3/uL [facility] Monocytes Absolute Auto 0.6 0.1 - 1.2 X10*3/uL [facility] Eosinophils Absolute Auto 0.2 0.0 - 0.4 X10*3/uL [facility] Basophils Absolute Auto 0.1 0.0 - 0.2 X10*3/uL [facility] NRBC Abs Auto 0.000 0.0 - 0.012 X10*3/uL [facility] 12/18/2022 10:2 0 AM EDT 12/18/2022 10:20 AM EDT us [facility] External Provider LAB BLO OD ORDERABLES Final Result [facility] [address] [place] [phone] * B Type Natriuretic Peptide (BNP) (11/01/2022 9:29 AM EDT) B Type Natriuretic Peptide 97 <100 pg/mL [facility] Comment:For those patients w ho are being treated with Natrecor(nesiritide, recombinant BNP), BNP testing should beperformed at least two hours post treatment in order toensure that only endogenous levels of BNP are detected. 11/01/2022 9:29 AM EDT 11/01/2022 9:29 AM EDT [facility] External Provider LAB BLO OD ORDERABLES Final Result Performing Organization Address [facility] Co de Phone Number [facility] [address] [place] [address] [phone] * Lipid Panel, Standard (11/01/2022 9:29 AM EDT) Triglycerides 101 mg/dL [facility] Comment:Desirable Triglyceri de: less than 150 mg/dLBorderline High Triglyceride 150-199 mg/dLHigh Triglyceride: 200-499 mg/dLVery High Triglyceride: greater than or equal to 5OO mg/dL Cholesterol 128 mg/dL [facility] Comment:Desirable Cholestero l: less than 200 mg/dLBorderline High Cholesterol: 200-239 mg/dLHigh Cholesterol: greater than 239 mg/dL LDL Cholesterol Calculated 68 mg/dl [facility] Comment:Desirable LDL: less than 100 mg/dLNear Optimal/Above Optimal LDL: 110- 129 mg/dLBorderline High LDL: 130-159 mg/dLHigh LDL: 160-189 mg/dLVery High LDL: greater than or equal to 190 mg/dL HDL Cholesterol 40 mg/dL [facility] Comment:Desirable HDL: great er than 40 mg/dL Note: This HDL assay may give artificially low results in patients with liver disease. 11/01/2022 9:29 AM EDT 11/01/2022 9:29 AM EDT [facility] External Provider LAB BLO OD ORDERABLES Final Result Performing Organization Address [facility] Co de Phone Number [facility] [address] [place] [address] [phone] * ALT (11/01/2022 9:29 AM EDT) Alanine Aminotransferase 9 0 - 31 U/L [facility] 11/01/2022 9:29 AM EDT 11/01/2022 9:29 AM EDT [facility] External Provider LAB BLO OD ORDERABLES Final Result Performing Organization Address [facility] Co de Phone Number [facility] [address] [place] [address] [phone] * AST (11/01/2022 9:29 AM EDT) Aspartate Amino Transferase 12 5 - 31 U/L [facility] 11/01/2022 9:29 AM EDT 11/01/2022 9:29 AM EDT [facility] External Provider LAB BLO OD ORDERABLES Final Result Performing Organization Address [facility] Phone Number [facility] [address] [place] [phone] * (ABNORMAL) Basic Metabolic Panel (11/01/2022 9:29 AM EDT) Sodium 142 135 - 145 mmol/L [facility] Potassium 4.5 3.3 - 5.1 mmol/L [facility] Chloride 105 96 - 108 mmol/L [facility] Carbon Dioxide 30(H) 22 - 29 mmol/L [facility] Anion Gap 12 12 - 20 [facility] Urea Nitrogen (BUN) 30(H) 9 - 16 mg/dL [facility] Creatinine, Serum 1.18 0.5 - 1.4 mg/dL [facility] Estimated Glomerular Filt Rate 44 [facility] Comment:NOTE: For -Am erican individuals, multiply the result by 1.210.Chronic Kidney Disease: Estimated GFR < 60 mL/min/1.80d5Lqcubg Kidney Disease: Estimated GFR < 15 mL/min/1.73m2 Glucose 105 60 - 115 mg/dL [facility] Calcium 9.7 8.4 - 10.2 mg/dL [facility] 11/01/2022 9:29 AM EDT 11/01/2022 9:29 AM EDT [facility] External Provider LAB BLO OD ORDERABLES Final Result [facility] [address] [place] [phone] documented in this encounter Visit Diagnoses Not on filedocumented in this encounter Care Teams Inspector Multifocal Lens Relationship Specialty Start Date End Date Lupe Moralez FNP [address] [place] [address] PCP - General Family Medicine 04/16/22 Perry Quintero MD [address] [place] [address] Cardiology 06/14/24 documented as of this encounter
--- OUTSIDE RECORDS SUMMARY | 2025-07-04 17:16 | XMS_ITS | Encounter Summary ---
Author Organization [employer] Address [address] [place] [address] 7t [place] [address] Care Team Providers Care Quality Liaison Name Role Phone Lupe Moralez Primary Care Provider [phone] Perry Quintero MD Unavailable [phone] Encounter Details Date Type Department Care Team ([facility] Contact Info) Description 11/07/2022 Abstract [facility] [address] [place] [phone] Lupe Moralez FNP [address] [place], [place] [phone] Social History Tobacco Use Types Packs/Day Years [...] Description 08/03/2025 11:30 AM EST Office Visit [facility] [address] [place], [place] [phone] Lupe Moralez FNP [address] [place] [address] documented as of this encounter Visit Diagnoses Not on filedocumented in this encounter Care Teams Quality Liaison Relationship Specialty Start Date End Date Lupe Moralez FNP [address] [place] [address] PCP - General Family Medicine 04/16/22 Perry Quintero MD [address] [place] [address] Cardiology 06/14/24 documented as of this encounter
--- OUTSIDE RECORDS SUMMARY | 2025-07-04 17:16 | XMS_ITS | Encounter Summary ---
Author Organization [employer] Address [address] [place] [address] [address]t [place] [address] Care Team Providers Care Network Engineer Name Role Phone Lupe Moralez Primary Care Provider [phone] Perry Quintero MD Unavailable [phone] Encounter Details Date Type Department Care Team (Late st Contact Info) Description 03/18/2023 Abstract [facility] [address] [place] [phone] Lupe Moralez FNP [address] [place] [address] Social History Tobacco Use Types Packs/Day Years [...] Description 08/03/2025 11:30 AM EST Office Visit [facility] [address] [place] [address] Lupe Moralez FNP [address] [place], [place] [phone] documented as of this encounter Visit Diagnoses Not on filedocumented in this encounter Additional Health Concerns Assessment Noted Time PHQ-9 Depression Total Score: 5 01/03/20 23 2:27 PM EDT documented as of this encounter Care Teams Network Engineer Relationship Specialty Start Date End Date Lupe Moralez FNP [address] [place] [address] PCP - General Family Medicine 04/16/22 Perry Quintero MD [address] [place] [address] Cardiology 06/14/24 documented as of this encounter
--- OUTSIDE RECORDS SUMMARY | 2025-07-04 17:16 | XMS_ITS | Encounter Summary ---
Author Organization [employer] Address [address] [facility] 7t [place] [address] Care Team Providers Care Grain Receiver Name Role Phone Lupe Moralez Primary Care Provider [phone] Perry Quintero MD Unavailable [phone] Reason for Visit * Reason Comments Med Refill Encounter Details Date Type Department Care Team ([facility] st Contact Info) Description 01/17/2025 Refill [facility] [address] [place] [address] Lupe Moralez FNP [address] [place], [place] [phone] Type 2 diabetes mellitus without complication, without long-term current use of insulin ([facility]) Social History Tobacco Use Types Packs/Day Years [...] 11:30 AM EST Office Visit [facility] [address] [place] [address] Lupe Moralez FNP [address] [place] [address] documented as of this encounter Visit Diagnoses Diagnosis Type 2 diabetes mellitus without complication, without long-term current use of insulin (HCC) documented in this encounter Additional Health Concerns Assessment Noted Time PHQ-9 Depression Total Score: 4 02/09/20 24 10:42 AM EDT documented as of this encounter Care Teams Grain Receiver Relationship Specialty Start Date End Date Lupe Moralez FNP [address] [place] [address] PCP - General Family Medicine 04/16/22 Perry Quintero MD [address] [place] [address] Cardiology 06/14/24 documented as of this encounter
--- OUTSIDE RECORDS SUMMARY | 2025-07-04 17:16 | XMS_ITS | Encounter Summary ---
Author Organization [employer] Address [address] [facility] 7t [place] [address] Care Team Providers Care Director Of Women'S Services Name Role Phone Lupe Moralez Primary Care Provider [phone] Perry Quintero MD Unavailable [phone] Reason for Visit * Reason Comments Med Refill Encounter Details Date Type Department Care Team ([facility] st Contact Info) Description 05/31/2024 Refill [facility] [address] [place] [address] Lupe Moralez FNP [address] [place], [place] [phone] Gastroesophageal reflux disease, unspecified whether esophagitis present [...] Description 08/03/2025 11:30 AM EST Office Visit [facility] [address] [place] [address] Lupe Moralez FNP [address] [place] [address] documented as of this encounter Visit Diagnoses Diagnosis Gastroesophageal reflux disease, unspecified whether esophagitis present documented in this encounter Additional Health Concerns Assessment Noted Time PHQ-9 Depression Total Score: 4 02/09/20 24 10:42 AM EDT documented as of this encounter Care Teams Director Of Women'S Services Relationship Specialty Start Date End Date Lupe Moralez FNP [address] [place] [address] PCP - General Family Medicine 04/16/22 Perry Quintero MD [address] [place] [address] Cardiology 06/14/24 documented as of this encounter
--- OUTSIDE RECORDS SUMMARY | 2025-07-04 17:17 | XMS_ITS | Encounter Summary ---
Author Organization [employer] Address [address] [facility] 7t [place] [address] Care Team Providers Care Meat Pumper Name Role Phone Lupe Moralez Primary Care Provider [phone] Perry Quintero MD Unavailable [phone] Reason for Visit * Reason Onset Date Comments Hospital Follow-up 09/24/2023 Encounter Details Date Type Department Care Team ([facility] st Contact Info) Description 09/24/2023 Telephone [facility] [address] [place] [address] Lupe Moralez FNP [address] [place], [place] [phone] Hospital Follow-up Social History Tobacco Use Types [...] changes. Thank you! Contacted Yanci Morrow via [employer] regarding above message and Yanci reached out to Lamar to coordinate. Yanci confirmed that Candida will coordinate this pre-visit consult. Routing message back to PCP galo is aware and to Abby Lord. * Telephone Encounter - Gely Hernandez RN - 09/25/2023 3:22 PM EST TC placed to patient via [employer] and daughter answered. Daughter states patient unable to come to the phone and the moment and that she handles the patient's medical care and can scheduleHFU for her. Daughter explained that patient was having SOB and rising BP and was admitted at [facility]. Daughterstates that they found pulmonary [...] from pt requesting a HDF appt. [facility] Date of admission: 09/17 Discharge date: 09/19 Diagnosed: Cardiovascular * Telephone Encounter - Sandeep Hernandez - 09/24/2023 2:44 PM EST Tc from pt requesting a HDF appt. Hospital: [facility] Date of admission: 09/17 Discharge date: 09/19 Diagnosed: Cardiovascular documented in this encounter Plan of Treatment Upcoming Encounters Date Type Department Care Team (Late st Contact Info) Description 08/03/2025 11:30 AM EST Office Visit [facility] [address] [place] [address] Lupe Moralez FNP [address] [place] [address] documented as of this encounter Visit Diagnoses Not on filedocumented in this encounter Additional Health Concerns Assessment Noted Time PHQ-9 Depression Total Score: 5 01/03/20 23 2:27 PM EDT documented as of this encounter Care Teams Meat Pumper Relationship Specialty Start Date End Date Lupe Moralez FNP [address] [place] [address] PCP - General Family Medicine 04/16/22 ePrry Quintero MD [address] [place] [address] Cardiology 06/14/24 documented as of this encounter
--- OUTSIDE RECORDS SUMMARY | 2025-07-04 17:17 | XMS_ITS | Encounter Summary ---
Author Organization [employer] Address [address] [facility] [address]t [place] [address] Care Team Providers Care Sports Instructor Name Role Phone Lupe Moralez Primary Care Provider [phone] Perry Quintero MD Unavailable [phone] Reason for Visit * Reason Onset Date Comments question 03/02/2024 Encounter Details Date Type Department Care Team ([facility] st Contact Info) Description 03/02/2024 Telephone [facility] [address] [place] [address] Lupe Moralez FNP [address] [place], [place] [phone] question Social History Tobacco Use Types Packs/Day [...] directed to another line to discuss about [facility] locations that are covered by [employer] to [...] it's an insurance thing gave insurance number [id number] documented in this encounter Plan of Treatment Upcoming Encounters Date Type Department Care Team (Late st Contact Info) Description 08/03/2025 11:30 AM EST Office Visit [facility] [address] [place] [address] Lupe Moralez FNP [address] [place] [address] documented as of this encounter Visit Diagnoses Not on filedocumented in this encounter Additional Health Concerns Assessment Noted Time PHQ-9 Depression Total Score: 4 02/09/20 24 10:42 AM EDT documented as of this encounter Care Teams Sports Instructor Relationship Specialty Start Date End Date Lupe Moralez FNP [address] [place] [address] PCP - General Family Medicine 04/16/22 Perry Quintero MD [address] [place] [address] Cardiology 06/14/24 documented as of this encounter
--- OUTSIDE RECORDS SUMMARY | 2025-07-04 17:17 | XMS_ITS | Clinical Summary ---
Author Organization [facility] Address [address] [facility] [address] [place] [phone] Phone Care Team Providers Care Irrigationist Designer Name Role Phone Pcp, Unknown Primary Care [...] topic Medical Devices Not on file [facility] BARRY GARCIA [id number] [place] [address] [place] [address] MEDICARE REPLACEMENT [facility] MEDICARE REPLACEMENT Care Teams Irrigationist Designer Relationship Specialty Start Date End Date Pcp, Unknown PCP - General 07/04/23 Additional Source Comments The information contained in this document represents components of the legal health record. It is not the complete legal health record.[facility]
--- OUTSIDE RECORDS SUMMARY | 2025-07-04 17:17 | XMS_ITS | Encounter Summary ---
Author Organization [employer] Address [address] [facility] [address]t [place] [address] Care Team Providers Care Headliner Installer Name Role Phone Lupe Moralez Primary Care Provider [phone] Perry uQintero MD Unavailable [phone] Encounter Details Date Type Department Care Team (Late st Contact Info) Description 06/05/2025 Orders Only [facility] [address] [place] [address] ProviderYo MD Social History Tobacco Use Types Packs/Day Years [...] Description 08/03/2025 11:30 AM EST Office Visit [facility] [address] [place] [address] Lpue Moralez FNP [address] [place] [address] documented as of this encounter Procedures Procedure Name Priority Date/Time Associated Diagnosis Comments DIABETES EYE EXAM Routine 06/01/2025 4:02 PM EDT documented in this encounter Results * Diabetes Eye Exam (06/01/2025 4:02 PM EDT) Historical Provider HEALTH MAINTENANCE Final Result documented in this encounter Visit Diagnoses Not on filedocumented in this encounter Additional Health Concerns Assessment Noted Time PHQ-9 Depression Total Score: 5 02/22/20 25 12:04 PM EDT documented as of this encounter Care Teams Headliner Installer Relationship Specialty Start Date End Date Lupe Moralez FNP [address] [place] [address] PCP - General Family Medicine 04/16/22 Perry Quintero MD [address] [place] [address] Cardiology 06/14/24 documented as of this encounter
--- OUTSIDE RECORDS SUMMARY | 2025-07-04 17:17 | XMS_ITS | Data Portability ---
Author Organization [place] - [facility], Allergy Address [address] [place] [address] Care Team Providers Care Skin Lap Bonder Name Role Phone KIKE MARIE Primary Care Provider [phone] KIKE MARIE Referring Provider [phone] Assessment Encounter Date Assessment Date Assessment LastModified by Organization Details LastModified Time 03/18/2025 03/18/2025 79-year-old Hungarian-speakin g female presents today with her daughter for hearing evaluation. Physical exam reveals partially occluding cerumen in the right EAC, which was removed today with suction. TMs are intact with well aerated middle ear spaces bilaterally. Audiometric testing today reveals type A tymps bilaterally and symmetric mild SNHL. Unfortunately, prior audiograms are not available for review. Discussed that the patient is a good candidate for hearing amplification, therefore provided her with medical clearance for hearing aids today. Recommended a hearing aid consultation to update her hearing aids and find a model that better fits her ears. Recommended follow-up in 1 year with repeat audiometric testing. Patient was encouraged to follow up sooner with any sudden changes to hearing. Shikha Montgomery PA-C assisted with evaluation and documentation. [email or web address] Not available 03/18/2025 15:26:18 Plan of Treatment Reminders Order Date Submit Date Provider Last Modified By Organization Details Last Modified Time Details Appointments None record ed. Lab None record ed. Referral None record ed. Procedures None record ed. Surgeries None record ed. Imaging None record ed. Medication Orders None record ed. Patient TargetsNo targets recorded. Patient InstructionsNo instructions recorded. Reason for Referral None Reported. Results Created Date Observation Date Name Description Value Unit Range Abnormal Flag Note LastModifiedBy Organization Detail LastModifiedTime 03/18/20 25 audio gram No observ ation record ed. BARCODE Not Available 2024 15:29:16 Result Notes None recorded. Problems Name Problem SNOMED Code Status Onset Date Resolution Date Notes Provider Name and Address Organization Details Recorded Time Sensorineural hearing loss of bilateral ears 910489045 Active 2024 ULISES TERRAZAS MA, CCC-A [address] [facility],[address], [place], [address], [facility] 5 13:53:58 Excessive cerumen in ear canal 751356526 Active 2024 BARRY ARROYO 100 [facility],[address], [place], [address], [facility] 15:12:52 Problem Notes None recorded. Procedures Surgical History Date Name Laterality Status Provider Name and Address Organization Details Recorded Time Cerumen removal without microscope bilat completed BARRY ARROYO 100 [facility],[address], [address], [facility] 03/18/2025 15:03:56 5 [employer] Bone Audio - 07383 completed ULISES TERRAZAS [place], [facility] 100 [facility],[address], [address], [facility] 03/18/2025 13:54:18 5 SRT & Tymps - 24520 & 23078 completed ULISES TERRAZAS [place], [facility] 100 [facility],[address], [address], [facility] 03/18/2025 13:54:27 Imaging Results None recorded. Procedure Notes None recorded. Medical Equipment None Reported. Allergies Allergen ID Allergen Name Allergen Category Reaction Reaction Severity Criticality Documentation Date Start Date Code Code System Note Provider Name and Address Organization Details Recorded Time [id number] Product containin g penicilli n (product) medicatio n Not available Not available Not available 03/18/2025 [id number] SNOMED Lynn coles [place] - [facility] 5 14:11:30 Medications Name Sig Start Date Stop Date Status Note LastModified by Organization Details LastModified Time fluconazole 100 mg tablet TAKE 1 TABLET BY MOUTH EVERY DAY FOR 10 DAYS active Not Available Not Available No t Available atorvastatin 40 mg tablet TAKE 1 TABLET BY MOUTH EVERY EVENING active Not Available Not Available No t Available metformin 500 mg tablet TAKE 1 TABLET BY MOUTH TWICE DAILY AT NOON AND IN THE EVENING WITH MEALS active Not Available Not Available N ot Available gabapentin 600 mg tablet TAKE 1 TABLET BY MOUTH EVERY EVENING active Not Available Not Available No t Available tizanidine 2 mg tablet TAKE 1 TABLET BY MOUTH ONCE DAILY NEEDED FOR MUSCLE SPASMS active Not Available Not Available No t Available trazodone 50 mg tablet TAKE 1/2 TO 1 TABLET BY MOUTH AT BEDTIME NEEDED FOR SLEEP active Not Available Not Available No t Available fluconazole 150 mg tablet TAKE 1 TABLET BY MOUTH ONCE A WEEK FOR FOURTEEN DAYS active Not Available Not Available No t Available prednisone 20 mg tablet TAKE 2 TABLETS BY MOUTH ONCE DAILY FOR 5 DAYS active Not Available Not Available No t Available glipizide ER 5 mg tablet, extended release 24 hr TAKE 1 TABLET BY MOUTH EVERY DAY IF BLOOD SUGAR > 150, DO NOT BREAK, CRUSH, DISSOLVE OR CHEW. active Not Available Not Available No t Available torsemide 10 mg tablet TAKE 1 TABLET BY MOUTH ONCE DAILY NEEDED FOR WEIGHT GAIN OF 3 POUNDS OR MORE IN ON THE LEG active Not Available Not Available N ot Available clopidogrel 75 mg tablet TAKE 1 TABLET BY MOUTH EVERYDAY AT NOON active Not Available Not Available No t Available acetaminophe n 500 mg tablet TAKE 1 TABLET BY MOUTH EVERY 6 HOURS NEEDED FOR PAIN OR FOR FEVER active Not Available Not Available No t Available spironolacto ne 25 mg tablet TAKE 1 TABLET BY MOUTH EVERY MORNING active Not Available Not Available No t Available lidocaine-pr ilocaine 2.5 %-2.5 % topical cream APPLY TO THE AFFECTED AREA(S) TOPICALLY THREE TIMES DAILY IN THE MORNING, AT NOON, AND AT BEDTIME NEEDED FOR PAIN active Not Available Not Available No t Available levothyroxin e 88 mcg tablet TAKE 1 TABLET BY MOUTH EVERY MORNING active Not Available Not Available No t Available Ear Wax Removal Drops 6.5 % PLACE 5 to 10 DROPS IN AFFECTED EAR(S) TWICE DAILY FOR FOUR DAYS active Not Available Not Available No t Available pantoprazole 40 mg tablet,delay ed release TAKE 1 TABLET BY MOUTH EVERY MORNING BEFORE BREAKFAST active Not Available Not Available No t Available gabapentin 300 mg capsule TAKE 1 CAPSULE BY MOUTH EVERYDAY AT NOON active Not Available Not Available No t Available ammonium lactate 12 % topical cream APPLY TO THE AFFECTED AREA(S) TOPICALLY NEEDED DRY SKIN active Not Available Not Available No t Available cyanocobalam in (vit B-12) 1,000 mcg sublingual tablet TAKE 1 TABLET UNDER THE TONGUE EVERY DAY, DO NOT EXCEED 1 TABLET / DAY active Not Available Not Available No t Available metoprolol succinate ER 25 mg tablet,exten ded release 24 hr TAKE 1 TABLET BY MOUTH EVERY MORNING active Not Available Not Available No t Available polyethylene glycol 3350 17 gram/dose oral powder TAKE 17 GM MIXED IN 8 OUNCES OF WATER, COFFEE OR TEA ONCE DAILY MAY INCREASE TO 2 OR 3 TIMES DAILY NEEDED FOR CONSTIPATIO N active Not Available Not Available No t Available hydrocortiso ne 2.5 % topical ointment APPLY TOPICALLY TO AFFECTED AREA(s) ONCE DAILY AT NOON FOR 2 WEEKS active Not Available Not Available No t Available fluticasone propionate 50 mcg/actuatio n nasal spray,suspen pepe INHALE 1 SPRAY IN EACH NOSTRIL ONCE DAILY active Not Available Not Available N ot Available Ventolin HFA 90 mcg/actuatio n aerosol inhaler INHALE 2 PUFFS BY MOUTH EVERY 4 TO 6 HOURS NEEDED FOR WHEEZING OR SHORTNESS OF BREATH active Not Available Not Available No t Available simethicone 80 mg chewable tablet CHEW ONE TABLET EVERY 6 HOURS NEEDED active Not Available Not Available No t Available Alcohol Prep Pads USE DIRECTED active Not Available Not Available No t Available Gas Relief Extra Strength 125 mg chewable tablet CHEW 1 TABLET BY MOUTH EVERY 6 HOURS NEEDED FOR GAS active Not Available Not Available No t Available ferrous gluconate 324 mg (38 mg iron) tablet TAKE 1 TABLET BY MOUTH EVERY MORNING (ON FRIDAY, FRIDAY AND FRIDAY) active Not Available Not Available Not Available Symbicort 160 mcg-4.5 mcg/actuatio n HFA aerosol inhaler INHALE 1 PUFF BY MOUTH TWICE DAILY IN THE MORNING AND AT BEDTIME RINSE MOUTH AFTER USING. active Not Available Not Available No t Available peg 3350-electro lytes 236 gram-22.74 gram-6.74 gram-5.86 gram solution MIX WITH WATER DIRECTED THEN FOLLOW INSTRUCTION SHEET GIVEN TO YOU AT YOUR DOCTOR'S OFFICE DIRECTED. active Not Available Not Available No t Available FreeStyle Lite Strips TEST BLOOD SUGAR TWICE DAILY AND NEEDED active Not Available Not Available No t Available Cerovite Senior 0.4 mg-300 mcg-250 mcg tablet TAKE 1 TABLET BY MOUTH EVERY OTHER DAY AT NOON active Not Available Not Available No t Available TRUEplus Lancets 33 gauge USE DIRECTED TO TEST BLOOD SUGAR TWICE DAILY NEEDED active Not Available Not Available No t Available Eliquis 5 mg tablet TAKE 1 TABLET BY MOUTH TWICE DAILY AT NOON AND IN THE EVENING active Not Available Not Available Not Available Farxiga 10 mg tablet TAKE 1 TABLET BY MOUTH EVERY MORNING active Not Available Not Available No t Available Entresto 24 mg-26 mg tablet TAKE 1 TABLET BY MOUTH TWICE DAILY AT NOON AND IN THE EVENING active Not Available Not Available Not Available Proctosol HC 2.5 % topical cream perineal applicator INSERT RECTALLY TWICE DAILY active Not Available Not Available Not Available Omron Blood Pressure Monitor-3 Series kit USE TO CHECK BLOOD PRESSURE EVERY DAY DIRECTED active Not Available Not Available Not Available Vitals None Recorded Social History None recorded. Functional Status None recorded. Mental Status None recorded. Family History Nothing Reported. Medical History Condition Response Diabetes Y Anemia Y Arthritis Y Headaches Y Migraines Y Hypertension Y Asthma Y Gynecological HistoryNo gynecological history recorded. Obstetrics History GPAL:G 0 P 0 0 0 0 Past Encounters Encounter ID Performer Location Encounter Start Date Encounter Closed Date Diagnosis/Indication Diagnosis SNOMED-CT Code Diagnosis ICD10 Code Diagnosis IMO Codes Diagnosis Note [id number] NORM HERNANDEZ PA-C [facility] [address] [address] 03/18/2025 13:14:56 03/18/2025 14:43:43 Sensorineural hearing loss of bilateral ears 303704298 H90.3 [id number] Audiologic al evaluation results: Right & Left ears: Normal hearing sloping to a mild SNHL. . Tympanomet ry: Right Ear:Type Ad (1.6) Left Ear:Type Ad ( 1.4) Excessive cerumen in ear canal 362779531 H61.21 [id number] Health Concerns Section Related Observation LastModified by Organization Detai ls LastModified Time None Recorded Concern Status LastModified by Organization Details LastModified Time None Recorded Advance Directives Directive None Recorded Payers Insurance Date Sequence Insurance Name Policy Number Policy Chavez Covered Member ID Chavez Member ID Guarantor Name 03/29/[address] [facility] - DOS ON OR AFTER 2022 - ONE CARE (MEDICARE REPLACEMENT/ADV ANTAGE - HMO) Charleen Hines [id number] Charleen Hines Notes Date Note Type Note Provider Name and Address Organization Details Recorded Time 03/18/2025 text/html ROS as noted in the HPI 79-year-old Hungarian-speaking female presents today with her daughter for hearing evaluation. Patient has had bilateral hearing aids for the last 2 years, but they have been causing her ear pain and headaches, and she believes they do not fit her well. Patient was followed by a hearing care practitioner in [place], but unfortunately the person she was working with . Prior audiograms are not available for review today. Patient denies tinnitus, frequent ear infections, and vertigo. She does report dizziness when standing. She has a defibrillator and states she has a history of low blood pressure and anemia. She is currently working with her marketing director assisted living and PCP for these issues. NORM HERNANDEZ PA-C [address] [place] [address], [phone], [facility] - [facility] 03/18/2025 15:26:42 OBGyn Episode No OBEpisode recorded.
--- OUTSIDE RECORDS SUMMARY | 2025-07-04 17:17 | XMS_ITS | Encounter Summary ---
Author Organization [employer] Address [address] [facility] 7t [place] [address] Care Team Providers Care Pocket Machine Operator Name Role Phone Lupe Moralez Primary Care Provider [phone] Perry Quintero MD Unavailable [phone] Reason for Visit * Reason Comments Med Refill Encounter Details Date Type Department Care Team ([facility] st Contact Info) Description 04/14/2025 Refill [facility] CHC MED & PEDS [address] [place], [place] [phone] Lupe Moralez FNP [address] [place] [address] Neuropathy Social History Tobacco Use Types Packs/Day [...] Description 08/03/2025 11:30 AM EST Office Visit [facility] MEDICINE [address] [place] [address] Lupe Moralez FNP [address] [place] [address] documented as of this encounter Visit Diagnoses Diagnosis Neuropathy Mononeuritis of unspecified site documented in this encounter Additional Health Concerns Assessment Noted Time PHQ-9 Depression Total Score: 5 02/22/20 25 12:04 PM EDT documented as of this encounter Care Teams Pocket Machine Operator Relationship Specialty Start Date End Date Lupe Moralez FNP [address] [place] [address] PCP - General Family Medicine 04/16/22 Perry Quintero MD [address] [place] [address] Cardiology 06/14/24 documented as of this encounter
--- OUTSIDE RECORDS SUMMARY | 2025-07-04 17:17 | XMS_ITS | Encounter Summary ---
Author Organization [employer] Address [address] [facility] 7t [place] [address] Care Team Providers Care Radio Station Engineer Name Role Phone ClarissaLupe alegria BE Primary Care Provider [phone] Perry Quintero MD Unavailable [phone] Reason for Visit * Reason Comments Med Refill Encounter Details Date Type Department Care Team ([facility] st Contact Info) Description 10/17/2024 Refill [facility] [address] [place], [place] [phone] Tiny Warren MD [address] [place], [place] [phone] Social History Tobacco Use Types Packs/Day Years [...] Description 08/03/2025 11:30 AM EST Office Visit [facility] MEDICINE [address] [place] [address] Lupe Moralez FNP [address] [place] [address] documented as of this encounter Visit Diagnoses Not on filedocumented in this encounter Additional Health Concerns Assessment Noted Time PHQ-9 Depression Total Score: 4 02/09/20 24 10:42 AM EDT documented as of this encounter Care Teams Radio Station Engineer Relationship Specialty Start Date End Date Lupe Moralez FNP [address] [place] [address] PCP - General Family Medicine 04/16/22 Perry Quintero MD [address] [place] [address] Cardiology 06/14/24 documented as of this encounter
--- OUTSIDE RECORDS SUMMARY | 2025-07-04 17:17 | XMS_ITS | Encounter Summary ---
Author Organization [employer] Address [address] [facility] 7t [place] [address] Care Team Providers Care Masonry Instructor Name Role Phone Lupe Moralez Primary Care Provider [phone] Perry Quintero MD Unavailable [phone] Encounter Details Date Type Department Care Team ([facility] st Contact Info) Description 11/28/2023 Telephone [facility] CHC MED & PEDS [address] [place] [address] Lupe Moralez FNP [address] [place] [address] Social History Tobacco Use Types Packs/Day Years [...] 11:30 AM EST Office Visit [facility] MEDICINE [address] [place] [address] Lupe Moralez FNP [address] [place] [address] documented as of this encounter Visit Diagnoses Not on filedocumented in this encounter Additional Health Concerns Assessment Noted Time PHQ-9 Depression Total Score: 5 01/03/20 23 2:27 PM EDT documented as of this encounter Care Teams Masonry Instructor Relationship Specialty Start Date End Date Lupe Moralez FNP [address] [place] [address] PCP - General Family Medicine 04/16/22 Perry Quintero MD [address] [place] [address] Cardiology 06/14/24 documented as of this encounter
--- OUTSIDE RECORDS SUMMARY | 2025-07-04 17:17 | XMS_ITS | Encounter Summary ---
Author Organization [employer] Address [address] [facility] 7t [place] [address] Care Team Providers Care Ship'S Carpenter Name Role Phone Lupe Moralez Primary Care Provider [phone] Perry Quintero MD Unavailable [phone] Reason for Visit * Reason Onset Date Comments Referral 06/19/2023 Encounter Details Date Type Department Care Team ([facility] st Contact Info) Description 06/19/2023 Telephone [facility] MEDICINE [address] [place] [address] Lupe Moralez FNP [address] [place], [place] [phone] Referral Social History Tobacco Use Types Packs/Day [...] Requesting change in location for PT to [facility] if possible. [facility] * Telephone Encounter - Sandeep Hernandez - 06/19/2023 11:18 AM EST Tc from patients daughter requestingphysical therapy referral to be switch to [facility] due to transportation. documented in this encounter Plan of Treatment Upcoming Encounters Date Type Department Care Team (Late st Contact Info) Description 08/03/2025 11:30 AM EST Office Visit [facility] MEDICINE [address] [place] [address] Lupe Moralez FNP [address] [place] [address] documented as of this encounter Visit Diagnoses Not on filedocumented in this encounter Additional Health Concerns Assessment Noted Time PHQ-9 Depression Total Score: 5 01/03/20 23 2:27 PM EDT documented as of this encounter Care Teams Ship'S Carpenter Relationship Specialty Start Date End Date Lupe Moralez FNP [address] [place] [address] PCP - General Family Medicine 04/16/22 Perry Quintero MD [address] [place] [address] Cardiology 06/14/24 documented as of this encounter
--- OUTSIDE RECORDS SUMMARY | 2025-07-04 17:17 | XMS_ITS | Encounter Summary ---
Author Organization [employer] Address [address] [facility] 7t [place] [address] Care Team Providers Care Roustabout Crew Leader Name Role Phone Lupe Moralez Primary Care Provider [phone] Perry Quintero MD Unavailable [phone] Reason for Visit * Reason Onset Date Comments FYI 12/15/2023 Encounter Details Date Type Department Care Team ([facility] st Contact Info) Description 12/15/2023 Telephone [facility] MED & PEDS [address] [place] [address] Lupe Moralez FNP [address] [place] [address] FYI Social History Tobacco Use Types Packs/Day [...] - 12/15/2023 2:27 PM EDT Tc from [facility] with [facility] calling to advise provider pt has been discharged from nursing services with all nursing goals met. documented in this encounter Plan of Treatment Upcoming Encounters Date Type Department Care Team (Late st Contact Info) Description 08/03/2025 11:30 AM EST Office Visit [facility] MEDICINE [address] [place] [address] Lupe Moralez FNP [address] [place] [address] documented as of this encounter Visit Diagnoses Not on filedocumented in this encounter Additional Health Concerns Assessment Noted Time PHQ-9 Depression Total Score: 5 01/03/20 23 2:27 PM EDT documented as of this encounter Care Teams Roustabout Crew Leader Relationship Specialty Start Date End Date Lupe Moralez FNP [address] [place] [address] PCP - General Family Medicine 04/16/22 Perry Quintero MD [address] [place] [address] Cardiology 06/14/24 documented as of this encounter
--- OUTSIDE RECORDS SUMMARY | 2025-07-04 17:17 | XMS_ITS | Encounter Summary ---
Author Organization [employer] Address [address] [facility] [address]t [place] [address] Care Team Providers Care Shrimp Packer Name Role Phone Lupe Moralez Primary Care Provider [phone] Perry Quintero MD Unavailable [phone] Reason for Visit * Reason Comments Med Refill Encounter Details Date Type Department Care Team (Late st Contact Info) Description 05/09/2023 Refill [facility] MEDICINE [address] [place] [address] Lupe Moralez FNP [address] [place], [place] [phone] Gastroesophageal reflux disease, unspecified whether esophagitis present [...] Description 08/03/2025 11:30 AM EST Office Visit [facility] MEDICINE [address] [place] [address] Lupe Moralez FNP [address] [place] [address] documented as of this encounter Visit Diagnoses Diagnosis Gastroesophageal reflux disease, unspecified whether esophagitis present documented in this encounter Additional Health Concerns Assessment Noted Time PHQ-9 Depression Total Score: 5 01/03/20 23 2:27 PM EDT documented as of this encounter Care Teams Shrimp Packer Relationship Specialty Start Date End Date Lupe Moralez FNP [address] [place] [address] PCP - General Family Medicine 04/16/22 Perry Quintero MD [address] [place] [address] Cardiology 06/14/24 documented as of this encounter
--- OUTSIDE RECORDS SUMMARY | 2025-07-04 17:17 | XMS_ITS | Encounter Summary ---
Author Organization [employer] Address [address] [facility] [address]t [place] [address] Care Team Providers Care Printing Film Stripper Name Role Phone ClarissaLupe alegria BE Primary Care Provider [phone] Perry Quintero MD Unavailable Encounter Details Date Type Department Care Team ([facility] st Contact Info) Description 12/31/2024 Orders Only [facility] CHC MED & PEDS [address] [place] [address] Therese Diana MD [address] [place] [address] Anemia, unspecified type Social History Tobacco Use [...] 11:30 AM EST Office Visit [facility] MEDICINE [address] [place] [address] Lupe Moralez FNP [address] [place] [address] documented as of this encounter Visit Diagnoses Diagnosis Anemia, unspecified type documented in this encounter Additional Health Concerns Assessment Noted Time PHQ-9 Depression Total Score: 4 02/09/20 24 10:42 AM EDT documented as of this encounter Care Teams Printing Film Stripper Relationship Specialty Start Date End Date Lupe Moralez FNP [address] [place] [address] PCP - General Family Medicine 04/16/22 Perry Quintero MD [address] [place] [address] Cardiology 06/14/24 documented as of this encounter
== END 2025-07-04 15:08 | disposition home or self-care (01) ==
LOC: HO.HSMS 13:46
PROVIDERS: PCP Registered Nurse; Visit Provider Physician Assistant Medical
DX: G47.33 Obstructive sleep apnea (adult) (pediatric) (principal); Z99.89 Dependence on other enabling machines and devices; F51.01 Primary insomnia; H83.3X3 Noise effects on inner ear, bilateral; G47.19 Other hypersomnia; D64.9 Anemia, unspecified
CPT/HCPCS: 99214

== ENCOUNTER → 2025-07-04 13:46 | Outpatient (BNVA) | payer OTHER, SELFPAY | PROVIDERS: PCP Registered Nurse; Visit Provider Physician Assistant Medical | DX: G47.33 Obstructive sleep apnea (adult) (pediatric) (principal); F51.01 Primary insomnia; H83.3X3 Noise effects on inner ear, bilateral; G47.19 Other hypersomnia; D64.9 Anemia, unspecified; Z99.89 Dependence on other enabling machines and devices | CPT/HCPCS: 99212 ==